=== PATIENT | female | born 1965 | race Caucasian/White ===

== ENCOUNTER 2020-01-29 18:35 | Observation (INO) | payer MEDICARE, MEDICAID, SELFPAY ==
[2020-01-29] VITALS (8 sets, daily range): BP systolic 83–131; BP diastolic 59–73; PULSE 91–107; RESP 14–20; TEMP 37.6–38.7; O2SAT 94–97; BMI 31.8
--- NOTE | ~2020-01-29 | CT_ITS ---
EXAMINATION: CT cervical spine wo con DATE: 01/29/2020 20:25 INDICATION: Confusion post falls TECHNIQUE: Computed tomography (CT) of the cervical spine was performed without intravenous contrast. Automated exposure control and iterative reconstruction technique were employed. The dose-length pro duct was 446.52 mGy-cm. COMPARISON: None FINDINGS: Mild cervical levocurvature. Straightening of the normal cervical lordosis. Vertebral body heights ar e normal. No fracture. Mild disc height loss at C5-C6 and C6-C7. There disc bulges at both levels res ulting in mild central canal stenosis. Moderate uncovertebral osteoarthritis on the right at C5-C6. M ultilevel mild to moderate facet osteoarthritis on both the left and right sides of the cervical spin e. There is mild neural foraminal stenosis at several levels on both the left and right most prominen t on the right at C5-C6. Atherosclerotic Calcination cases along the bilateral carotid bulbs. Cervica l soft tissues are otherwise unremarkable. Mild emphysema at the bilateral apices. IMPRESSION: 1. Mild cervical spondylosis. No acute osseous abnormality. Reviewed, dictated and finalized at location A.
--- NOTE | ~2020-01-29 | CT_ITS ---
EXAMINATION: CT brain wo con DATE: 01/29/2020 20:25 INDICATION: Altered mental status with confusion. Frequent falls. TECHNIQUE: Computed tomography (CT) of the head was performed without intravenous contrast. Sagittal and coronal reconstructions were performed. The mA was adjusted according to patient size. Iterative reconstruction technique was employed. The dose-length product was 681.00 mGy-cm. COMPARISON: None FINDINGS: No fracture. No acute intracranial hemorrhage, acute infarction or abnormal extra axial fluid collect ion. There is mild scattered white matter hypoattenuation consistent with chronic small vessel ischem ic disease. Ventricles are normal and symmetric. No mass/mass effect. The orbits, paranasal sinuses and mastoid air cells are normal. Intracranial calcified cerebral atherosclerosis is noted. IMPRESSION: 1. No fracture or acute intracranial process. 2. Mild scattered white matter hypoattenuation consistent with chronic small vessel ischemic disease. Reviewed, dictated and finalized at location A. IMPRESSION: 1. No fracture or acute intracranial process. 2. Mild scattered white matter hypoattenuation consistent with chronic small ve ssel ischemic disease.
--- NOTE | ~2020-01-29 | XR_ITS ---
EXAMINATION: XR chest 1V portable DATE: 01/29/2020 20:29 INDICATION: Cough and fever TECHNIQUE: frontal view of the chest was obtained. COMPARISON: None FINDINGS: The lungs are clear with no focal airspace opacities, pulmonary edema, pleural effusion or pneumothor ax. The cardiomediastinal silhouette is normal. Likely implantable proctologist projecting over th e mid left lung. IMPRESSION: 1. No acute cardiopulmonary disease. Reviewed, dictated and finalized at location A.
--- NOTE | 2020-01-29 18:53 | ECG_ITS ---
Measurements Intervals [place] Rate: 106 P: 70 CT: 144 QRS: -9 QRSD: 94 T: 76 QT: 338 QTc: 449 Interpretive Statements SINUS TACHYCARDIA POSSIBLE LEFT ATRIAL ENLARGEMENT BASELINE ARTIFACT- I, II III, AVL, AVF ABNORMAL ECG Electronically Signed On 01-30-2020 6:54:15 CDT by Mike Bernardo D.O.
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
[2020-01-29 19:40] LABS: Basophils Percent Auto 0.3 % (0.2-1.2); Eosinophils Percent Auto 0.1 % (0-4.4); Hematocrit 42.8 % (37.0-47.0); Hemoglobin 14.1 g/dL (12.0-15.0); Immature Granulocyte Absolute 0.05 K/mm3 (0.00-0.031); Immature Granulocyte Percent A 0.4 % (0-0.5); Lymphocytes Absolute Auto 1.06 K/mm3 (0.9-3.2); Mean Corpuscular HGB Conc 32.9 g/dl (32-36); Mean Corpuscular Hemoglobin 27.6 pg (26-34); Mean Corpuscular Volume 83.9 fl (80-100); Mean Platelet Volume 12.5 fl (7.4-10.4); Monocytes Absolute Auto 0.7 K/mm3 (0.1-0.6); Monocytes Percent Auto 5.4 % (2.6-8.5); Neutrophils Absolute Auto 11.4 K/mm3 (1.3-6.7); Neutrophils Percent Auto 85.8 % (45.5-73.1); Platelet Count Result 137 k/mm3 (150-375); Red Cell Distribution Width 14.1 % (11.5-14.5); White Blood Count 13.3 K/mm3 (4.5-10.0)
[2020-01-29 19:44] LABS: Add Urine Microscopic? YES; Appearance Urine Cloudy (Clear); Bilirubin Urine Negative (Negative); Blood Urine Negative (Negative); Color Urine Yellow (Yellow); Glucose Urine UA 3+ mg/dL (Negative); Ketones Urine Negative (Negative); Leukocyte Esterase Ur 2+ LEU/UL (Negative); Mucus Urine Rare /lpf; Nitrate Urine Negative (Negative); Protein Urine 2+ mg/dL (Negative); Specific Grav Ur 1.027 (1.001-1.035); Squamous Epithelial Cell Urine Few /hpf (Few); Urobilinogen Urine Negative mg/dL (<2.0); WBC Urine >75 /hpf
[2020-01-29 19:53] LABS: Lactic Acid Reflex 3.7 mmol/L (0.7-2.1)
[2020-01-29 19:54] LABS: Alveolar/Arterial O2 Gradient 50.7 mmHg; Base Excess ABG 1.8 mEq/l (+/-2.0); Fractional Inspired Oxygen 21 %; HCO3 ABG 24.4 mEq/l (22.0-26.0); Oxygen Content ABG 16.7 %vol (16.0-22.0); Oxygen Saturation ABG 93.4 % (95.0-100.0); Oxyhemoglobin 86.7 % THb (90.0-100.0); PCO2 ABG 32.1 mmHg (35.0-45.0); PO2 ABG 60.6 mmHg (80.0-100.0); PO2 FiO2 Ratio Arterial Blood 2.89 %; Total Hemoglobin 13.7 g/dL (12.0-18.0); pH ABG 7.498 (7.350-7.450)
[2020-01-29 19:54] LABS: Albumin Level 3.7 g/dL (3.5-5.1); Alkaline Phosphatase 108 U/L (38-126); Aspartate Amino Transferase 17 U/L (14-36); Bilirubin,Total 0.6 mg/dL (0.2-1.3); Blood Urea Nitrogen 15 mg/dL (7-17); Calcium 8.1 mg/dL (8.4-10.2); Carbon Dioxide 23 mmol/L (22-30); Chloride 96 mmol/L (98-107); Estimated CRCL calculation 69 ml/min; Estimated Glomerular Filt Rate 57; Glucose 362 mg/dL (65-105); Sodium 129 mmol/L (137-145)
[2020-01-29 19:56] LABS: Device ROOM AIR; Modified Allen's Test Pass; Site Drawn RIGHT RADIAL
[2020-01-29] MEDS: ACETAMINOPHEN 325 MG TABLET 650 MG PO (19:56)
[2020-01-29 20:06] LABS: Alanine Aminotransferase 19 U/L (4-35)
[2020-01-29] MEDS: POTASSIUM CHLORIDE 20 MEQ TABLET 40 MEQ PO (20:50)
--- NOTE | 2020-01-29 20:53 | PC.NURSE ---
Pt daughter, Heather. phone number [phone].
[2020-01-29 22:38] LABS: Reflex Lactic Acid Yes or No Add Lactic
--- NOTE | 2020-01-29 22:41 | ADMGEN ---
This patient, Tiff Vaughn, was admitted to [facility] Surg Room 331-01. Patient/family oriented to hospital policies and general routines including ID bracelet, bed and alarms, visiting hours, pain management, procedures, bathroom and other care routines, personal items, smoking policy, room service/diet, and visiting hours. Valuables list has been completed. Information on how to activate the Rapid Response Team has been discussed. Patient/Family are encouraged to report perceived risks to care and to ask questions if they do not understand what they are told or what they should do.
[2020-01-29] MEDS: SODIUM CHLORIDE 0.9% IV 1,000 ML 125 ML IV CONT (23:00)
[2020-01-29 23:59] LABS: Lactic Acid 0.8 mmol/L (0.7-2.1)
[2020-01-30] VITALS (10 sets, daily range): BP systolic 121–154; BP diastolic 69–91; PULSE 87–105; RESP 14–22; TEMP 36.5–37.3; O2SAT 94–98
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
[2020-01-30] MEDS: SODIUM CHLORIDE 0.9% IV 1,000 ML 125 ML IV CONT (05:39)
[2020-01-30 06:48] LABS: Basophils Percent Auto 0.4 % (0.2-1.2); Eosinophils Percent Auto 0.3 % (0-4.4); Hematocrit 41.2 % (37.0-47.0); Hemoglobin 13.5 g/dL (12.0-15.0); Immature Granulocyte Absolute 0.04 K/mm3 (0.00-0.031); Immature Granulocyte Percent A 0.4 % (0-0.5); Lymphocytes Absolute Auto 1.32 K/mm3 (0.9-3.2); Lymphocytes Percent Auto 12.8 % (18.3-44.2); Mean Corpuscular HGB Conc 32.8 g/dl (32-36); Mean Corpuscular Hemoglobin 27.6 pg (26-34); Mean Corpuscular Volume 84.1 fl (80-100); Mean Platelet Volume 12.3 fl (7.4-10.4); Monocytes Absolute Auto 0.7 K/mm3 (0.1-0.6); Monocytes Percent Auto 6.7 % (2.6-8.5); Neutrophils Absolute Auto 8.2 K/mm3 (1.3-6.7); Neutrophils Percent Auto 79.4 % (45.5-73.1); Platelet Count Result 125 k/mm3 (150-375); White Blood Count 10.3 K/mm3 (4.5-10.0)
[2020-01-30 07:00] LABS: Blood Urea Nitrogen 10 mg/dL (7-17); Calcium 7.9 mg/dL (8.4-10.2); Carbon Dioxide 27 mmol/L (22-30); Chloride 103 mmol/L (98-107); Estimated CRCL calculation 90 ml/min; Estimated Glomerular Filt Rate > 60; Glucose 255 mg/dL (65-105); Potassium 3.1 mmol/L (3.4-5.0); Sodium 134 mmol/L (137-145)
[2020-01-30 07:28] LABS: Glucose Point of Care 250 (65-105)
[2020-01-30] MEDS: ALBUTEROL SULFATE (*SP) AEROSOL 1 PUFF 6 PUFF INHALATION ×2 (08:48→12:13)
[2020-01-30] MEDS: PREGABALIN 75 MG CAPSULE PO ×2 (10:38→21:50)
[2020-01-30] MEDS: INSULIN ASPART (*BKC) 100 UNITS/ML SUB-Q ×3 (10:38→18:36)
[2020-01-30] MEDS: ENOXAPARIN 40 MG/0.4 ML SYRINGE SUB-Q (10:38)
[2020-01-30] MEDS: CHOLECALCIFEROL 1,000 UNIT TABLET 2000 UNITS PO ×2 (12:43→17:08)
[2020-01-30] MEDS: LOSARTAN POTASSIUM 25 MG TABLET PO (12:44)
[2020-01-30] MEDS: ASPIRIN 81 MG CHEWABLE TABLET PO (12:44)
[2020-01-30] MEDS: DULOXETINE 60 MG CAPSULE.DR PO ×2 (12:44→17:08)
[2020-01-30] MEDS: SODIUM CHLORIDE 0.9% IV 1,000 ML 75 ML IV CONT (12:46)
[2020-01-30 14:02] LABS: SARS-CoV-2 RNA PCR Negative
--- NOTE | 2020-01-30 14:14 | PC.NURSE ---
Notified Ck WANG that patients COVID test came back negative.
[2020-01-30] MEDS: INSULIN GLARGINE (*BKC) 100 UNITS/ML 50 UNITS SUB-Q (14:16)
--- NOTE | 2020-01-30 15:24 | P.PNIM_ITS ---
Progress Note: A&P Assessment and Plan (1) Sepsis: Qualifiers: Sepsis type: sepsis due to unspecified organism Sepsis acute organ dysfunction status: with acute organ dysfunction Severe sepsis acute organ dysfunction type: encephalopathy Severe sepsis shock status: without septic reza ck Qualified Code(s): A41.9 - Sepsis, unspecified organism; R65.20 - Severe sepsis without septic shock; G93.40 - Encephalopathy, unspecified Code(s): A41.9 - Sepsis, unspecified organism Status: Acute Assessment and Plan: With leukocytosis, fever, tachycardia, hypotension on arrival; Most likely due to UTI given UA. * Continue empiric antibiotic therapy with Rocephin. * Await urine and blood cultures; tailor regimen to cultures * Continue IV fluid hydration for now; likely d/c tomorrow (2) UTI (urinary tract infection): Qualifiers: Urinary tract infection type: site unspecified Hematuria presence: without hematuria Qualified Code(s): N39.0 - Urinary tract infection, site not specified Code(s): N39.0 - Urinary tract infection, site not specified Status: Acute Assessment and Plan: Sepsis due to likely urinary tract infection given patient's dysuria and encephalopathy. * Continue empiric antibiotic therapy with Rocephin. * Await urine and blood cultures. (3) Tobacco abuse disorder: Code(s): Z72.0 - Tobacco use Status: Acute Assessment and Plan: * Patient has been educated as to the importance of tobacco cessation. 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 BGL in 200s * Will hole the patient's home Jardiance and * Continue with home Januvia. * Home insulin (humulin 50 u BID) is NF; will do long acting insulin 50 units daily during hospital stay; adjust appropriately * Accuchecks ACHS, hypoglycemia protocol, correctional insulin, diabetic diet * Monitor (5) Hypokalemia: Code(s): E87.6 - Hypokalemia Status: Acute Assessment and Plan: Patient received 40 mEq potassium chloride supplement in the ER. K 3.1 this morning and replaced again this morning * BMP tomorrow * Replace as needed (6) Metabolic encephalopathy: Code(s): G93.41 - Metabolic encephalopathy Status: Acute Assessment and Plan: Likely due to UTI. Patient A&O x 4 today. Seems to have resolvecd * Will treat empirically with Rocephin. (7) COPD exacerbation: Code(s): J44.1 - Chronic obstructive pulmonary disease with (acute) exacerbation Status: Acute Assessment and Plan: Likely exacerbated by the patient's continued tobacco use. No wheezing on exam today * Will continue Spiriva scheduled and albuterol inhalers QID * Covid testing negative Subjective Date/time seen: 01/30/20 15:24 Interval history: Patient is a 54 yo F with history of type 2 diabetes, COPD, and current tobacco use who is here for treatment of sepsis/UTI. Patient states she is fe
--- NOTE | 2020-01-30 15:24 | PM.IMPN ---
Progress Note: A&P Assessment and Plan (1) Sepsis: Qualifiers: Sepsis type: sepsis due to unspecified organism Sepsis acute organ dysfunction status: with acute organ dysfunction Severe sepsis acute organ dysfunction type: encephalopathy Severe sepsis shock status: without septic shock Qualified Code(s): A41.9 - Sepsis, unspecified organism; R65.20 - Severe sepsis without septic shock; G93.40 - Encephalopathy, unspecified Code(s): A41.9 - Sepsis, unspecified organism Status: Acute Assessment and Plan: With leukocytosis, fever, tachycardia, hypotension on arrival; Most likely due to UTI given UA. Continue empiric antibiotic therapy with Rocephin. Await urine and blood cultures; tailor regimen to cultures Continue IV fluid hydration for now; likely d/c tomorrow (2) UTI (urinary tract infection): Qualifiers: Urinary tract infection type: site unspecified Hematuria presence: without hematuria Qualified Code(s): N39.0 - Urinary tract infection, site not specified Code(s): N39.0 - Urinary tract infection, site not specified Status: Acute Assessment and Plan: Sepsis due to likely urinary tract infection given patient's dysuria and encephalopathy. Continue empiric antibiotic therapy with Rocephin. Await urine and blood cultures. (3) Tobacco abuse disorder: Code(s): Z72.0 - Tobacco use Status: Acute Assessment and Plan: Patient has been educated as to the importance of tobacco cessation. 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 BGL in 200s Will hole the patient's home Jardiance and Continue with home Januvia. Home insulin (humulin 50 u BID) is NF; will do long acting insulin 50 units daily during hospital stay; adjust appropriately Accuchecks ACHS, hypoglycemia protocol, correctional insulin, diabetic diet Monitor (5) Hypokalemia: Code(s): E87.6 - Hypokalemia Status: Acute Assessment and Plan: Patient received 40 mEq potassium chloride supplement in the ER. K 3.1 this morning and replaced again this morning BMP tomorrow Replace as needed (6) Metabolic encephalopathy: Code(s): G93.41 - Metabolic encephalopathy Status: Acute Assessment and Plan: Likely due to UTI. Patient A&O x 4 today. Seems to have resolvecd Will treat empirically with Rocephin. (7) COPD exacerbation: Code(s): J44.1 - Chronic obstructive pulmonary disease with (acute) exacerbation Status: Acute Assessment and Plan: Likely exacerbated by the patient's continued tobacco use. No wheezing on exam today Will continue Spiriva scheduled and albuterol inhalers QID Covid testing negative Subjective Date/time seen: 01/30/20 15:24 Interval history: Patient is a 54 yo F with history of type 2 diabetes, COPD, and current tobacco use who is here for treatment of sepsis/UTI. Patient states she is feeling much better today. She notes she was treated for a UTI by her PCP as an outpatient 2 weeks ago, finishing her antibiotic treatment course 1 week ago; she is unaware of the antibiotic used. She has no complaints for me at the moment. She is wishing to leave as soon as possible. Denies f/c/s, headaches, dizziness, lightheadedness, cp/palpitations, sob/cough, n/v/d/c, abd p
[2020-01-30] MEDS: ALBUTEROL SULFATE (*SP) AEROSOL 1 PUFF 2 PUFF INHALATION ×2 (17:10→20:43)
[2020-01-30 17:32] LABS: Glucose Point of Care 259 (65-105)
[2020-01-30 19:09] LABS: Glucose Point of Care 233 (65-105)
[2020-01-31 06:00] VITALS: BP 158/55; PULSE 88; RESP 18; TEMP 36.9; O2SAT 100
[2020-01-31 07:12] LABS: Basophils Percent Auto 0.4 % (0.2-1.2); Eosinophils Absolute Auto 0.1 K/mm3 (0-0.3); Hematocrit 39.8 % (37.0-47.0); Hemoglobin 13.1 g/dL (12.0-15.0); Immature Granulocyte Absolute 0.04 K/mm3 (0.00-0.031); Immature Granulocyte Percent A 0.4 % (0-0.5); Immature Platelet Fraction Pct 8.1 % (0.9-11.2); Lymphocytes Absolute Auto 1.38 K/mm3 (0.9-3.2); Mean Corpuscular HGB Conc 32.9 g/dl (32-36); Mean Corpuscular Hemoglobin 27.5 pg (26-34); Mean Corpuscular Volume 83.6 fl (80-100); Mean Platelet Volume 12.1 fl (7.4-10.4); Monocytes Absolute Auto 0.6 K/mm3 (0.1-0.6); Monocytes Percent Auto 6.4 % (2.6-8.5); Neutrophils Absolute Auto 7.7 K/mm3 (1.3-6.7); Neutrophils Percent Auto 77.8 % (45.5-73.1); Platelet Count Result 126 k/mm3 (150-375); Red Blood Count 4.76 M/mm3 (4.2-5.4); Red Cell Distribution Width 13.6 % (11.5-14.5); White Blood Count 9.9 K/mm3 (4.5-10.0)
[2020-01-31 07:30] LABS: Blood Urea Nitrogen 4 mg/dL (7-17); Calcium 8.1 mg/dL (8.4-10.2); Carbon Dioxide 28 mmol/L (22-30); Chloride 103 mmol/L (98-107); Estimated CRCL calculation 122 ml/min; Estimated Glomerular Filt Rate > 60; Glucose 125 mg/dL (65-105); Magnesium 1.6 mg/dL (1.6-2.3); Potassium 2.9 mmol/L (3.4-5.0); Sodium 135 mmol/L (137-145)
[2020-01-31] MEDS: ALBUTEROL SULFATE (*SP) AEROSOL 1 PUFF 2 PUFF INHALATION ×3 (09:03→17:17)
[2020-01-31 09:13] LABS: Glucose Point of Care 112 (65-105)
[2020-01-31] MEDS: LOSARTAN POTASSIUM 25 MG TABLET PO (09:35)
[2020-01-31] MEDS: ENOXAPARIN 40 MG/0.4 ML SYRINGE SUB-Q (09:35)
[2020-01-31] MEDS: CHOLECALCIFEROL 1,000 UNIT TABLET 2000 UNITS PO (09:35)
[2020-01-31] MEDS: ASPIRIN 81 MG CHEWABLE TABLET PO (09:35)
[2020-01-31] MEDS: DULOXETINE 60 MG CAPSULE.DR PO (09:35)
[2020-01-31] MEDS: PREGABALIN 75 MG CAPSULE PO (09:46)
[2020-01-31] MEDS: INSULIN GLARGINE (*BKC) 100 UNITS/ML 50 UNITS SUB-Q (09:46)
[2020-01-31 10:00] VITALS: BP 133/51; PULSE 88; RESP 16; TEMP 37.3; O2SAT 98
--- NOTE | 2020-01-31 10:01 | PM.DS ---
DS: Admitting Diagnosis Admitting Diagnosis Admitting Diagnosis: Sepsis, unspecified organism DS: Discharge Diagnosis Discharge Diagnosis (1) Sepsis: Qualifiers: Sepsis acute organ dysfunction status: with acute organ dysfunction Sepsis type: sepsis due to unspecified organism Severe sepsis acute organ dysfunction type: encephalopathy Severe sepsis shock status: without septic shock Qualified Code(s): A41.9 - Sepsis, unspecified organism; R65.20 - Severe sepsis without septic shock; G93.40 - Encephalopathy, unspecified Code(s): A41.9 - Sepsis, unspecified organism Status: Acute Assessment and Plan: With leukocytosis, fever, tachycardia, hypotension on arrival; Most likely due to UTI given UA and positive UCx growing E. coli sensitive to ceftriaxone. BCx negative to date x 2. Leukocytosis improved, WNL today. Tachycardia and hypotension resolved. Switch to cefdinir today. Complete 7 day total course of antibiotics (through 02/03) F/u with PCP after discharge (2) UTI (urinary tract infection): Qualifiers: Hematuria presence: without hematuria Urinary tract infection type: site unspecified Qualified Code(s): N39.0 - Urinary tract infection, site not specified Code(s): N39.0 - Urinary tract infection, site not specified Status: Acute Assessment and Plan: Sepsis due to likely urinary tract infection given patient's dysuria and encephalopathy. As above, UCx growing E. Coli sensitive to ceftriaxone Start cefdinir 300 mg Q12 today. Continue through 02/03 to complete 7 total days of antibiotics F/u with PCP. (3) Tobacco abuse disorder: Code(s): Z72.0 - Tobacco use Status: Acute Assessment and Plan: Patient has been educated as to the importance of tobacco cessation. Nicotine patch as needed (4) Diabetes mellitus with hyperglycemia: Qualifiers: Diabetes mellitus [facility] insulin use: with long term acute care registered nurse use Diabetes mellitus type: type 2 Qualified Code(s): E11.65 - Type 2 diabetes mellitus with hyperglycemia; Z79.4 - care home (current) use of insulin Code(s): E11.65 - Type 2 diabetes mellitus with hyperglycemia Status: Acute Assessment and Plan: A1c 9.0. BGL in 100s today Will have patient continue home regimen. Instruct her to check BGL 4-5 times daily and f/u with PCP for possible adjustments in medication Instructed her to adjust home insulin if BGL on lower side this evening Monitor (5) Hypokalemia: Code(s): E87.6 - Hypokalemia Status: Acute Assessment and Plan: K 3.0 today, stable. Possibly due to poor PO intake prior to arrival. Replaced this morning Will instruct to take her PRN potassium for 3 days and recheck BMP on 02/01 F/u with PCP (6) Metabolic encephalopathy: Code(s): G93.41 - Metabolic encephalopathy Status: Acute Assessment and Plan: Likely due to UTI. Patient A&O x 4 today. Seems to have resolved Treat UTI as outlined above (7) COPD exacerbation: Code(s): J44.1 - Chronic obstructive pulmonary disease with (acute) exacerbation Status: Acute Assessment and Plan: Likely exacerbated by the patient's continued tobacco use. Rhonchi noted on exam today, although patient not complaining of SOB/cough Continue home medication regimen F/u with PCP Covid testing negative DS: Summary Hospital Course Reason for hospitalization: Sepsis/UTI with encephalopathy, hypokalemia Hospital Course: Patient is a 54 yo F with history of type 2 diabetes and COPD who presented to the ER on 01/28 via private vehicle due to confusion and multiple falls for 1 day. While in the ED, patient was found to be
[2020-01-31] MEDS: POTASSIUM CHLORIDE 20 MEQ PACKET (FOR LIQUID) 60 MEQ PO (10:31)
[2020-01-31] MEDS: CEFDINIR 300 MG CAPSULE PO (11:40)
[2020-01-31] MEDS: POTASSIUM CHLORIDE 20 MEQ TABLET 60 MEQ PO (12:00)
[2020-01-31 12:45] LABS: Glucose Point of Care 108 (65-105)
[2020-01-31 13:44] LABS: Blood Urea Nitrogen 5 mg/dL (7-17); Calcium 8.1 mg/dL (8.4-10.2); Carbon Dioxide 26 mmol/L (22-30); Chloride 101 mmol/L (98-107); Estimated CRCL calculation 122 ml/min; Estimated Glomerular Filt Rate > 60; Glucose 106 mg/dL (65-105); Sodium 135 mmol/L (137-145)
[2020-01-31 14:00] VITALS: BP 147/68; PULSE 89; RESP 16; TEMP 36.9; O2SAT 100
== END 2020-01-31 15:30 | disposition home or self-care (01) ==
LOC: ANHED 21:39 → ANH3MEDSUR 22:15
PROVIDERS: Admitting Provider Internal Medicine; Emergency Provider Emergency Medicine; PCP Emergency Medicine; Visit Provider Physician Assistant
DX: A41.9 Sepsis, unspecified organism (principal); R65.20 Severe sepsis without septic shock; Z20.828 Contact with and (suspected) exposure to other viral communicable diseases; G93.41 Metabolic encephalopathy; N39.0 Urinary tract infection, site not specified; J44.1 Chronic obstructive pulmonary disease with (acute) exacerbation; B96.20 Unspecified Escherichia coli [E. coli] as the cause of diseases classified elsewhere; E11.610 Type 2 diabetes mellitus with diabetic neuropathic arthropathy; E11.42 Type 2 diabetes mellitus with diabetic polyneuropathy; E11.51 Type 2 diabetes mellitus with diabetic peripheral angiopathy without gangrene; E11.65 Type 2 diabetes mellitus with hyperglycemia; E87.6 Hypokalemia; F17.210 Nicotine dependence, cigarettes, uncomplicated; I25.10 Atherosclerotic heart disease of native coronary artery without angina pectoris; R29.6 Repeated falls; Z79.4 Long term (current) use of insulin; Z95.5 Presence of coronary angioplasty implant and graft
CPT/HCPCS: 36415; 36600; 70450; 71045; 72125; 80048; 80053; 81001; 82805; 83036; 83605; 83735; 85025; 85055; 87040; 87077; 87086; 87088; 87186; 87635; 93005; 94640; 96361; 96365; 96372; 96375; 96376; 99285; A9270; C9803; G0378; J0696; J1650; J1815; J3480; J7030; J7120; U0003

== ENCOUNTER 2020-03-16 22:34 | Observation (INO) | payer MEDICARE, MEDICAID, SELFPAY ==
--- NOTE | ~2020-03-16 | CT_ITS ---
EXAMINATION: CT abdomen pelvis w con EXAM DATE: 03/17/2020 00:16 INDICATION: Pain, fever, burning when urinating, dysuria. Since 5 days. TECHNIQUE: Spiral CT of the abdomen and pelvis was performed following intravenous injection of 100 m L Omnipaque 350. Axial, coronal and sagittal images were reviewed. The dose-length product (DLP) fo r this examination was 766.73 mGy-cm. The exposure was tailored according to patient size (auto mA e xposure control), and iterative reconstruction (ASIR) was used as additional dose reduction technique . There is no prior study for comparison. FINDINGS: The liver, spleen, adrenal glands and pancreas are unremarkable. Gallbladder not identifie d, patient likely has had cholecystectomy. Left kidney enhancing heterogeneously, and inflammation a long the left renal pelvis and surrounding the kidney, appearance is consistent with pyelonephritis. Correlate with urinalysis. Right kidney unremarkable. No hydronephrosis. The uterus is not identifie d and has likely been surgically resected. The bladder is unremarkable. There is no retroperitoneal or pelvic lymphadenopathy. There is mild to moderate scattered arteriosclerotic disease. There is left common iliac venous stent, bilateral external iliac arterial stents. The appendix is not positively visualized. There is no pericecal inflammatory change to suggest appe ndicitis. The stomach and small bowel are unremarkable. There is expected amount of colonic stool. No free intraperitoneal gas. The heart is normal in size. There are no pericardial or pleural e ffusions. The lung bases are unremarkable. There are no osteoblastic or osteolytic lesions identifi ed. IMPRESSION: Acute left-sided pyelonephritis. Reviewed, dictated and finalized at location A.
[2020-03-16 22:36] VITALS: BP 123/56; PULSE 103; RESP 20; TEMP 36.6; O2SAT 96
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
[2020-03-16 22:58] LABS: Add Urine Microscopic? YES; Appearance Urine Clear (Clear); Bacteria Urine Trace /hpf; Bilirubin Urine Negative (Negative); Blood Urine 1+ (Negative); Color Urine Colorless (Yellow); Glucose Urine UA 3+ mg/dL (Negative); Ketones Urine Negative (Negative); Leukocyte Esterase Ur Negative LEU/UL (Negative); Nitrate Urine Negative (Negative); Protein Urine Negative (Negative); RBC Urine 0-2 /hpf (0-2); Specific Grav Ur 1.028 (1.001-1.035); Squamous Epithelial Cell Urine Rare /hpf (Few); Urobilinogen Urine Negative mg/dL (<2.0)
[2020-03-16 23:28] VITALS: BP 120/79; PULSE 99; RESP 16; O2SAT 99
[2020-03-16] MEDS: ONDANSETRON INJ 4 MG/2 ML VIAL IV PUSH (23:32)
[2020-03-16] MEDS: SODIUM CHLORIDE 0.9% IV 1,000 ML 999 ML IV CONT (23:33)
[2020-03-16 23:35] LABS: Basophils Absolute Auto 0.1 K/mm3 (0.0-0.1); Basophils Percent Auto 0.4 % (0.2-1.2); Eosinophils Absolute Auto 0.1 K/mm3 (0-0.3); Eosinophils Percent Auto 0.5 % (0-4.4); Hematocrit 39.1 % (37.0-47.0); Hemoglobin 13.2 g/dL (12.0-15.0); Immature Granulocyte Absolute 0.03 K/mm3 (0.00-0.031); Immature Granulocyte Percent A 0.3 % (0-0.5); Lymphocytes Absolute Auto 1.75 K/mm3 (0.9-3.2); Lymphocytes Percent Auto 14.7 % (18.3-44.2); Mean Corpuscular HGB Conc 33.8 g/dl (32-36); Mean Corpuscular Hemoglobin 27.4 pg (26-34); Mean Corpuscular Volume 81.3 fl (80-100); Mean Platelet Volume 11.9 fl (7.4-10.4); Monocytes Absolute Auto 0.5 K/mm3 (0.1-0.6); Monocytes Percent Auto 4.4 % (2.6-8.5); Neutrophils Absolute Auto 9.5 K/mm3 (1.3-6.7); Neutrophils Percent Auto 79.7 % (45.5-73.1); Platelet Count Result 196 k/mm3 (150-375); Red Blood Count 4.81 M/mm3 (4.2-5.4); Red Cell Distribution Width 13.2 % (11.5-14.5); White Blood Count 11.9 K/mm3 (4.5-10.0)
[2020-03-16 23:47] LABS: Lactic Acid Reflex 1.2 mmol/L (0.7-2.1)
[2020-03-16 23:50] LABS: Alanine Aminotransferase 10 U/L (4-35); Albumin Level 3.6 g/dL (3.5-5.1); Alkaline Phosphatase 146 U/L (38-126); Anion Gap 12.5 mmol/L (7-16); Aspartate Amino Transferase 12 U/L (14-36); Bilirubin,Total 0.5 mg/dL (0.2-1.3); Blood Urea Nitrogen 9 mg/dL (7-17); Calcium 8.6 mg/dL (8.4-10.2); Carbon Dioxide 28 mmol/L (22-30); Chloride 93 mmol/L (98-107); Estimated Glomerular Filt Rate > 60; Glucose 573 mg/dL (65-105); Potassium 3.5 mmol/L (3.4-5.0); Sodium 130 mmol/L (137-145)
[2020-03-17] VITALS (8 sets, daily range): BP systolic 91–154; BP diastolic 45–75; PULSE 74–100; RESP 16–20; TEMP 36.2–36.8; O2SAT 93–100; BMI 27.2
[2020-03-17 00:20] LABS: Glucose Point of Care 456 (65-105)
[2020-03-17] MEDS: SODIUM CHLORIDE 0.9% IV 1,000 ML 999 ML IV CONT (00:38)
[2020-03-17] MEDS: INSULIN ASPART (*BKC) 100 UNITS/ML 8 UNITS SUB-Q (01:06)
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
--- NOTE | 2020-03-17 01:46 | ADMGEN ---
This patient, Tiff Vaughn, was admitted to Medical Room 340-01. Patient/family oriented to hospital policies and general routines including ID bracelet, bed and alarms, visiting hours, pain management, procedures, bathroom and other care routines, personal items, smoking policy, room service/diet, and visiting hours. Valuables list has been completed. Information on how to activate the Rapid Response Team has been discussed. Patient/Family are encouraged to report perceived risks to care and to ask questions if they do not understand what they are told or what they should do.
[2020-03-17] MEDS: SODIUM CHLORIDE 0.9% IV 1,000 ML 125 ML IV CONT (02:42)
[2020-03-17 03:03] LABS: Glucose Point of Care 275 (65-105)
[2020-03-17 03:03] LABS: Glucose Point of Care 342 (65-105)
[2020-03-17] MEDS: NICOTINE (*PBKC) 21 MG PATCH 1 PATCH TRANSDERM ×2 (04:12→09:02)
[2020-03-17 06:45] LABS: Glucose Point of Care 244 (65-105)
[2020-03-17] MEDS: INSULIN ASPART (*BKC) 100 UNITS/ML SUB-Q ×4 (07:25→16:36)
[2020-03-17] MEDS: ASPIRIN 81 MG CHEWABLE TABLET PO (09:01)
[2020-03-17] MEDS: DULoxetine HCL 60 MG CAPSULE.DR PO ×2 (09:01→16:28)
[2020-03-17] MEDS: PREGABALIN 75 MG CAPSULE 150 MG PO ×4 (09:01→20:27)
[2020-03-17] MEDS: CHOLECALCIFEROL 1,000 UNIT TABLET 2000 UNITS PO (09:01)
[2020-03-17] MEDS: LOSARTAN POTASSIUM 25 MG TABLET PO (09:01)
[2020-03-17] MEDS: INSULIN GLARGINE (*BKC) 100 UNITS/ML 15 UNITS SUB-Q ×2 (09:43→16:35)
[2020-03-17] MEDS: SODIUM CHLORIDE 0.9% IV 1,000 ML 100 ML IV CONT ×2 (11:11→23:09)
[2020-03-17 12:17] LABS: Glucose Point of Care 212 (65-105)
[2020-03-17] MEDS: ACETAMINOPHEN 500 MG TABLET 1000 MG PO (14:18)
--- NOTE | 2020-03-17 15:25 | PM.IMPN ---
Progress Note: A&P Assessment and Plan (1) Acute pyelonephritis: Code(s): N10 - Acute pyelonephritis Status: Acute Assessment and Plan: Patient presents with dysuria x5 days and nausea/vomiting. CT abdomen shows findings consistent with acute left-sided pyelonephritis. Continue IV ceftriaxone while awaiting urine and blood cultures. Supportive care with pain control, antiemetics, and IV hydration. (2) Nausea & vomiting: Qualifiers: Vomiting Intractability: non-intractable Vomiting type: unspecified Qualified Code(s): R11.2 - Nausea with vomiting, unspecified Code(s): R11.2 - Nausea with vomiting, unspecified Status: Acute Assessment and Plan: Improved today. Suspect secondary to above. Continue supportive care. (3) Diabetes mellitus with hyperglycemia: Qualifiers: Diabetes mellitus [facility]p insulin use: with m[facility]p use Diabetes mellitus type: type 2 Qualified Code(s): E11.65 - Type 2 diabetes mellitus with hyperglycemia; Z79.4 - terminal superintendent (current) use of insulin Code(s): E11.65 - Type 2 diabetes mellitus with hyperglycemia Status: Acute Assessment and Plan: With large doses of Regular insulin as home regimen. Will start Lantus BID and add more insulin as needed. Continue to monitor with Accu-cheks, cover with sliding scale and adjust treatment as needed. BG 573 on arrival. She reports she hasnt been eating or drinking well but drank gatorade prior to arrival and didn't realize the sugar content. BGs are improved today. (4) COPD (chronic obstructive pulmonary disease): Qualifiers: COPD type: unspecified COPD Qualified Code(s): J44.9 - Chronic obstructive pulmonary disease, unspecified Code(s): J44.9 - Chronic obstructive pulmonary disease, unspecified Status: Chronic Assessment and Plan: Continue bronchodilators. No acute respiratory symptoms. Subjective Date/time seen: 03/17/20 1130 Interval history: Ms. Vaughn is a 54 yo F admitted for acute pyelonephritis. She is feeling a bit better than when she came in but is feeling tired. She was having nausea and vomiting prior to arrival but she notes this has improved. She endorses left flank pain and dysuria. She denies chest pain or shortness of breath. Review of Systems Review of Systems: Narrative: Twelve systems were reviewed with pertinent positives and negatives as per HPI. Exam Narrative: Exam Narrative: General: Patient resting comfortably supine in bed in no acute distress. HEENT: Normocephalic, EOMI, oral mucosa moist. Cardiovascular: Rate and rhythm are regular. Respiratory: Lungs clear to auscultation all mistry. Non-labored breathing. Abdomen: Soft, left sided abdominal/flank tenderness to palpation, non-distended, bowel sounds present. Extremities: Peripheral pulses intact. No edema. Neuro: No focal neurological deficits. Speech is clear. Objective Data Vital Signs Vital Signs: Last Vital Signs Temp 98.2 F 03/17/20 14:00 Pulse 87 03/17/20 14:00 Resp 18 03/17/20 14:00 BP 132/55 L 03/17/20 14:00 Pulse Ox 100 03/17/20 14:00 Intake/Output Intake/Output: Intake & Output 03/14/20 03/15/20 03/16/20 03/17/20 23:59 23:59 23:59 23:59 Intake Total 1360 Output Total 300 Balance 1060 Meds/Results Medications: Active Medications Generic Name Dose Route Start Last Admin Trade Name Freq PRN Reason Stop Dose Admin Acetaminophen 1,000 mg 03/17/20 15:25 Tylenol Tablet PO Q6H PRN Pain Rated 5 or Less Hydrocodone Bitart/Acetaminophen 1 tab 03/17/20 15:25 Elrama 5-325 Mg PO Q6H PRN Pain Rated 6 or Greater Albuterol 2 puff 03/17/20 04:52 Proventil Hfa INHALATION QIDRT PRN Shortness Of Breath Aspirin 81 mg 03/17/20 09:00 03/17/20 09:01
[2020-03-17] MEDS: DOCUSATE SODIUM 100 MG CAPSULE PO (16:28)
[2020-03-17 16:54] LABS: Glucose Point of Care 236 (65-105)
[2020-03-17] MEDS: KETOROLAC 30 MG/ML VIAL (*BKC) IV PUSH (20:27)
[2020-03-17] MEDS: CYCLOBENZAPRINE HCL 10 MG TABLET PO (20:27)
[2020-03-17 21:55] LABS: Glucose Point of Care 368 (65-105)
[2020-03-17 21:57] LABS: Glucose Point of Care 360 (65-105)
[2020-03-17] MEDS: INSULIN ASPART (*BKC) 100 UNITS/ML 6 UNITS SUB-Q (23:08)
[2020-03-18 05:40] VITALS: BP 140/57; PULSE 72; RESP 18; TEMP 36.6; O2SAT 99
[2020-03-18 06:03] LABS: Blood Urea Nitrogen 9 mg/dL (7-17); Calcium 7.7 mg/dL (8.4-10.2); Carbon Dioxide 26 mmol/L (22-30); Chloride 108 mmol/L (98-107); Estimated CRCL calculation 90 ml/min; Estimated Glomerular Filt Rate > 60; Glucose 231 mg/dL (65-105); Magnesium 1.8 mg/dL (1.6-2.3); Sodium 138 mmol/L (137-145)
[2020-03-18 06:04] LABS: Basophils Absolute Auto 0.1 K/mm3 (0.0-0.1); Basophils Percent Auto 0.8 % (0.2-1.2); Eosinophils Absolute Auto 0.2 K/mm3 (0-0.3); Eosinophils Percent Auto 2.7 % (0-4.4); Hematocrit 36.6 % (37.0-47.0); Hemoglobin 11.8 g/dL (12.0-15.0); Immature Granulocyte Absolute 0.02 K/mm3 (0.00-0.031); Immature Granulocyte Percent A 0.3 % (0-0.5); Lymphocytes Percent Auto 33.7 % (18.3-44.2); Mean Corpuscular HGB Conc 32.2 g/dl (32-36); Mean Corpuscular Hemoglobin 27.3 pg (26-34); Mean Corpuscular Volume 84.7 fl (80-100); Mean Platelet Volume 12.2 fl (7.4-10.4); Monocytes Absolute Auto 0.4 K/mm3 (0.1-0.6); Monocytes Percent Auto 5.4 % (2.6-8.5); Neutrophils Absolute Auto 4.4 K/mm3 (1.3-6.7); Neutrophils Percent Auto 57.1 % (45.5-73.1); Platelet Count Result 181 k/mm3 (150-375); Red Blood Count 4.32 M/mm3 (4.2-5.4); Red Cell Distribution Width 13.4 % (11.5-14.5); White Blood Count 7.7 K/mm3 (4.5-10.0)
[2020-03-18 07:56] LABS: Glucose Point of Care 150 (65-105)
[2020-03-18] MEDS: PREGABALIN 75 MG CAPSULE 150 MG PO ×4 (08:29→20:47)
[2020-03-18] MEDS: NICOTINE (*PBKC) 21 MG PATCH 1 PATCH TRANSDERM (08:29)
[2020-03-18] MEDS: MAGNESIUM OXIDE 400 MG TABLET PO (08:32)
[2020-03-18] MEDS: ASPIRIN 81 MG CHEWABLE TABLET PO (08:32)
[2020-03-18] MEDS: CHOLECALCIFEROL 1,000 UNIT TABLET 2000 UNITS PO (08:32)
[2020-03-18 08:33] VITALS: RESP 18; O2SAT 99
[2020-03-18] MEDS: DULoxetine HCL 60 MG CAPSULE.DR PO ×2 (08:33→17:09)
[2020-03-18] MEDS: LOSARTAN POTASSIUM 25 MG TABLET PO (08:33)
[2020-03-18] MEDS: INSULIN GLARGINE (*BKC) 100 UNITS/ML 25 UNITS SUB-Q ×2 (08:42→17:11)
[2020-03-18] MEDS: SODIUM CHLORIDE 0.9% IV 1,000 ML 100 ML IV CONT (09:30)
[2020-03-18] MEDS: POTASSIUM CHLORIDE 20 MEQ PACKET (FOR LIQUID) 40 MEQ PO (09:35)
[2020-03-18 11:48] LABS: Glucose Point of Care 247 (65-105)
[2020-03-18] MEDS: INSULIN ASPART (*BKC) 100 UNITS/ML SUB-Q ×2 (12:11→17:12)
[2020-03-18 14:00] VITALS: BP 133/61; PULSE 81; RESP 18; TEMP 36.2; O2SAT 96
--- NOTE | 2020-03-18 15:25 | PM.DS ---
DS: Admitting Diagnosis Admitting Diagnosis Admitting Diagnosis: Acute pyelonephritis DS: Summary Time Spent with Patient Time attestation: Total time spent providing and/or coordinating discharge services: DS: Data Data Completed and Pending Labs on day of discharge: Labs from last 24 hours 03/18/20 03/18/20 03/18/20 11:33 07:43 05:12 WBC RBC Hgb Hct MCV MCH MCHC RDW Plt Count MPV Immature Gran % (Auto) Neut % (Auto) Lymph % (Auto) [place] % (Auto) Eos % (Auto) Baso % (Auto) Lymph # (Auto) [place] # (Auto) Eos # (Auto) Baso # (Auto) Abs Immat Gran (auto) Absolute Neuts (auto) Absolute Nucleated RBC Nucleated RBC % Sodium 138 Potassium 3.0 L Chloride 108 H Carbon Dioxide 26 Anion Gap 7.0 BUN 9 Creatinine 0.60 L Estim Creat Clear Calc 90 Estimated GFR > 60 Glucose 231 H POC Capillary Glucose 247 H 150 H Calcium 7.7 L Magnesium 1.8 03/18/20 03/17/20 03/17/20 05:12 21:55 20:33 WBC 7.7 RBC 4.32 Hgb 11.8 L Hct 36.6 L MCV 84.7 MCH 27.3 MCHC 32.2 RDW 13.4 Plt Count 181 MPV 12.2 H Immature Gran % (Auto) 0.3 Neut % (Auto) 57.1 Lymph % (Auto) 33.7 [place] % (Auto) 5.4 Eos % (Auto) 2.7 Baso % (Auto) 0.8 Lymph # (Auto) 2.60 [place] # (Auto) 0.4 Eos # (Auto) 0.2 Baso # (Auto) 0.1 Abs Immat Gran (auto) 0.02 Absolute Neuts (auto) 4.4 Absolute Nucleated RBC 0.0 Nucleated RBC % 0.0 Sodium Potassium Chloride Carbon Dioxide Anion Gap BUN Creatinine Estim Creat Clear Calc Estimated GFR Glucose POC Capillary Glucose 360 H 368 H Calcium Magnesium 03/17/20 16:33 WBC RBC Hgb Hct MCV MCH MCHC RDW Plt Count MPV Immature Gran % (Auto) Neut % (Auto) Lymph % (Auto) [place] % (Auto) Eos % (Auto) Baso % (Auto) Lymph # (Auto) [place] # (Auto) Eos # (Auto) Baso # (Auto) Abs Immat Gran (auto) Absolute Neuts (auto) Absolute Nucleated RBC Nucleated RBC % Sodium Potassium Chloride Carbon Dioxide Anion Gap BUN Creatinine Estim Creat Clear Calc Estimated GFR Glucose POC Capillary Glucose 236 H Calcium Magnesium Preliminary micro results at discharge 03/16/20 23:26 Blood Culture - Preliminary Blood 03/16/20 23:26 Blood Culture - Preliminary Blood 03/16/20 22:49 Urine Culture - Preliminary Urine Clean Catch Escherichia Coli Discharge Plan Discharge Patient Instructions: How to Stop Smoking (DC), Pain Management (DC), Kidney Infection (DC), Safe Use of Anticoagulants (GEN), Diabetes and Nutrition (DC) Discharge Medications: No Action aspirin 81 mg tablet 81 mg PO DAILY RF: 0 tiotropium bromide 2.5 mcg/actuation mist 2 puff INHALATION DAILY PRN (Reason: Shortness Of Breath) RF: 0 losartan 25 mg tablet 25 mg PO DAILY RF: 0 duloxetine 60 mg capsule,delayed release(DR/EC) 60 mg PO BID RF: 0 cinnamon bark 500 mg capsule 500 mg PO DAILY RF: 0 cyclobenzaprine 10 mg tablet 10 mg PO HS RF: 0 cholecalciferol (vitamin D3) 2,000 unit tablet 2,000 unit PO DAILY RF: 0 Repatha Syringe 140 mg/mL Syringe 140 mg SUBCUT [id number] RF: 0 ibuprofen 800 mg tablet 800 mg PO BID PRN (Reason: Pain) RF: 0 Humulin R U-500 (Conc) Kwikpen 500 unit/mL (3 mL) insulin pen 60 unit SUBCUT .COMPLEX RF: 0 pregabalin 150 mg capsule 150 mg PO QID RF: 0 Date of admission: 03/17/20 01:03 Primary Care Provider: Zay Martinez Admitting Provider: Danny Fregoso Attending physician on admission: Daisy Wallace Condition: Stable Quality VTE Prophylaxis VTE prophylaxis: mechanical ordered (SCDs)
[2020-03-18 16:35] LABS: Glucose Point of Care 241 (65-105)
--- NOTE | 2020-03-18 17:28 | PM.IMPN ---
Progress Note: A&P Assessment and Plan (1) Acute pyelonephritis: Code(s): N10 - Acute pyelonephritis Status: Acute Assessment and Plan: Patient presents with dysuria x5 days and nausea/vomiting. CT abdomen shows findings consistent with acute left-sided pyelonephritis. Continue IV ceftriaxone while awaiting urine and blood cultures. Supportive care with pain control, antiemetics, and IV hydration. Patient declined oral potassium tabs and liquid this morning. She requested K be replaced IV. K rider started this afternoon and is still running. Discharge is completed, discussed with RN that she can discharge after K rider is finished. Patient reports her daughter is not available to pick her up that late and will have to stay overnight. (2) Hypokalemia: Code(s): E87.6 - Hypokalemia Status: Acute Assessment and Plan: K 3.0 this morning. Patient refused oral potassium tablets and also liquid powder. IV KCl ordered this afternoon. Recheck in AM. (3) Nausea & vomiting: Qualifiers: Vomiting Intractability: non-intractable Vomiting type: unspecified Qualified Code(s): R11.2 - Nausea with vomiting, unspecified Code(s): R11.2 - Nausea with vomiting, unspecified Status: Resolved Assessment and Plan: None today. Continue supportive care. (4) Diabetes mellitus with hyperglycemia: Qualifiers: Diabetes mellitus type: type 2 Diabetes mellitus retirement insulin use: with ferry terminal supervisor use Qualified Code(s): E11.65 - Type 2 diabetes mellitus with hyperglycemia; Z79.4 - [facility]PC (current) use of insulin Code(s): E11.65 - Type 2 diabetes mellitus with hyperglycemia Status: Acute Assessment and Plan: With large doses of Regular insulin as home regimen. Continue Lantus BID and add more insulin as needed. Continue to monitor with Accu-cheks, cover with sliding scale and adjust treatment as needed. BG 573 on arrival. She reports she hasnt been eating or drinking well but drank gatorade prior to arrival and didn't realize the sugar content. (5) COPD (chronic obstructive pulmonary disease): Qualifiers: COPD type: unspecified COPD Qualified Code(s): J44.9 - Chronic obstructive pulmonary disease, unspecified Code(s): J44.9 - Chronic obstructive pulmonary disease, unspecified Status: Chronic Assessment and Plan: Continue bronchodilators. No acute respiratory symptoms. Subjective Date/time seen: 03/18/20 1245 Interval history: Ms. Vaughn is a 54 yo F admitted for acute pyelonephritis. She is feeling a bit better than when she came in but is feeling tired. She was having nausea and vomiting prior to arrival but she notes this has improved. She endorses left flank pain and dysuria have improved. She denies chest pain or shortness of breath. Review of Systems Review of Systems: Narrative: Twelve systems were reviewed with pertinent positives and negatives as per HPI. Exam Narrative: Exam Narrative: General: Female resting supine in bed in no acute distress. HEENT: Normocephalic, EOMI, oral mucosa moist. Cardiovascular: Rate and rhythm are regular. Respiratory: Lungs clear to auscultation all mistry. Non-labored breathing. Abdomen: Soft, some mild left flank tenderness to palpation without guarding, non-distended, bowel sounds present. Extremities: Peripheral pulses intact. No edema. Neuro: No focal neurological deficits. Speech is clear. Objective Data Vital Signs Vital Signs: Last Vital Signs Temp 97.2 F L 03/18/20 14:00 Pulse 81 03/18/20 14:00 Resp 18 03/18/20 14:00 BP 133/61 03/18/20 14:00 Pulse Ox 96 03/18/20 14:00 Intake/Output Intake/Output: Intake & Output 03/15/20 03/16/20 03/17/20 03/18/20 23:59 23:59 23:59 23:59 Intake Total
[2020-03-18 19:24] VITALS: BP 151/59; PULSE 90; RESP 15; TEMP 36.6; O2SAT 100
[2020-03-18] MEDS: CYCLOBENZAPRINE HCL 10 MG TABLET PO (20:47)
[2020-03-18 20:49] LABS: Glucose Point of Care 216 (65-105)
[2020-03-19 05:03] VITALS: BP 122/68; PULSE 84; RESP 18; TEMP 36.6; O2SAT 94
[2020-03-19 06:25] LABS: Anion Gap 7.8 mmol/L (7-16); Blood Urea Nitrogen 5 mg/dL (7-17); Calcium 7.6 mg/dL (8.4-10.2); Carbon Dioxide 29 mmol/L (22-30); Chloride 106 mmol/L (98-107); Estimated CRCL calculation 106 ml/min; Estimated Glomerular Filt Rate > 60; Glucose 90 mg/dL (65-105); Magnesium 1.6 mg/dL (1.6-2.3); Potassium 2.8 mmol/L (3.4-5.0); Sodium 140 mmol/L (137-145)
[2020-03-19 07:49] LABS: Glucose Point of Care 124 (65-105)
[2020-03-19] MEDS: NICOTINE (*PBKC) 21 MG PATCH 1 PATCH TRANSDERM (07:57)
[2020-03-19] MEDS: DULoxetine HCL 60 MG CAPSULE.DR PO ×2 (07:58→19:06)
[2020-03-19] MEDS: CHOLECALCIFEROL 1,000 UNIT TABLET 2000 UNITS PO (07:58)
[2020-03-19] MEDS: MAGNESIUM OXIDE 400 MG TABLET PO (07:59)
[2020-03-19] MEDS: ASPIRIN 81 MG CHEWABLE TABLET PO (07:59)
[2020-03-19] MEDS: LOSARTAN POTASSIUM 25 MG TABLET PO (07:59)
[2020-03-19 08:00] VITALS: PULSE 84; RESP 18; O2SAT 94
[2020-03-19] MEDS: PREGABALIN 75 MG CAPSULE 150 MG PO ×3 (08:08→19:02)
[2020-03-19] MEDS: INSULIN GLARGINE (*BKC) 100 UNITS/ML 30 UNITS SUB-Q ×2 (08:08→19:02)
[2020-03-19] MEDS: POTASSIUM CHLORIDE 20 MEQ TABLET 60 MEQ PO (10:46)
[2020-03-19] MEDS: ONDANSETRON INJ 4 MG/2 ML VIAL IV PUSH (10:47)
--- NOTE | 2020-03-19 11:48 | PM.IMPN ---
Progress Note: A&P Assessment and Plan (1) Acute pyelonephritis: Code(s): N10 - Acute pyelonephritis Status: Acute Assessment and Plan: Patient presents with dysuria x5 days and nausea/vomiting. CT abdomen shows findings consistent with acute left-sided pyelonephritis. Urine culture grew E coli. Blood cultures are pending with no growth to date. Continue IV ceftriaxone (day 3). Supportive care with pain control, antiemetics, and IV hydration. (2) Hypokalemia: Code(s): E87.6 - Hypokalemia Status: Acute Assessment and Plan: K 2.8 this morning. Unfortunately patient was been declining all oral potassium supplementation despite repeated teaching. Receiving 40meq IV KCl and through much encouragement she was able to take additional 60meq oral. Mag 1.6 and replaced. Repeat labs this afternoon. (3) Nausea & vomiting: Qualifiers: Vomiting Intractability: non-intractable Vomiting type: unspecified Qualified Code(s): R11.2 - Nausea with vomiting, unspecified Code(s): R11.2 - Nausea with vomiting, unspecified Status: Resolved Assessment and Plan: None today. Continue supportive care. (4) Diabetes mellitus with hyperglycemia: Qualifiers: Diabetes mellitus group home insulin use: with u.s. commissioner use Diabetes mellitus type: type 2 Qualified Code(s): E11.65 - Type 2 diabetes mellitus with hyperglycemia; Z79.4 - shelter (current) use of insulin Code(s): E11.65 - Type 2 diabetes mellitus with hyperglycemia Status: Acute Assessment and Plan: With large doses of Regular insulin as home regimen. Continue Lantus BID and add more insulin as needed. Continue to monitor with Accu-cheks, cover with sliding scale and adjust treatment as needed. (5) COPD (chronic obstructive pulmonary disease): Qualifiers: COPD type: unspecified COPD Qualified Code(s): J44.9 - Chronic obstructive pulmonary disease, unspecified Code(s): J44.9 - Chronic obstructive pulmonary disease, unspecified Status: Chronic Assessment and Plan: Continue bronchodilators. No acute respiratory symptoms. Subjective Date/time seen: 03/19/20 1030 Interval history: Ms. Vaughn is a 54 yo F admitted for acute pyelonephritis and hypokalemia. She reports feeling okay and offers no complaints. Her nausea has resolved and left flank pain is improved. Dysuria improved. She denies chest pain or shortness of breath. Tolerating oral intake. Review of Systems Review of Systems: Narrative: Twelve systems were reviewed with pertinent positives and negatives as per HPI. Exam Narrative: Exam Narrative: General: Female resting supine in bed in no acute distress. HEENT: Normocephalic, EOMI, oral mucosa moist. Cardiovascular: Rate and rhythm are regular. Respiratory: Lungs clear to auscultation all mistry. Non-labored breathing. Abdomen: Soft, some mild left flank tenderness to palpation without guarding, non-distended, bowel sounds present. Extremities: Peripheral pulses intact. No edema. Neuro: No focal neurological deficits. Speech is clear. Objective Data Vital Signs Vital Signs: Last Vital Signs Temp 97.5 F L 03/19/20 14:00 Pulse 79 03/19/20 14:00 Resp 18 03/19/20 14:00 BP 129/62 03/19/20 14:00 Pulse Ox 99 03/19/20 14:00 Intake/Output Intake/Output: Intake & Output 03/16/20 03/17/20 03/18/20 03/19/20 23:59 23:59 23:59 23:59 Intake Total 2800 3620 740 Output Total 1850 2100 1650 Balance 950 1520 -910 Meds/Results Medications: Active Medications Generic Name Dose Route Start Last Admin Trade Name Freq PRN Reason Stop Dose Admin Acetaminophen 1,000 mg 03/17/20 15:25 Tylenol Tablet PO Q6H PRN Pain Rated 5 or Less Hydrocodone Bitart/Acetaminophe
[2020-03-19 11:52] LABS: Glucose Point of Care 247 (65-105)
[2020-03-19] MEDS: MAGNESIUM SULF 2 GM/WATER 50ML 2 GM/50 ML BAG IVPB (11:59)
[2020-03-19] MEDS: INSULIN ASPART (*BKC) 100 UNITS/ML SUB-Q ×2 (12:04→18:11)
[2020-03-19 14:00] VITALS: BP 129/62; PULSE 79; RESP 18; TEMP 36.4; O2SAT 99
[2020-03-19 15:41] LABS: Anion Gap 10.3 mmol/L (7-16); Blood Urea Nitrogen 7 mg/dL (7-17); Calcium 7.9 mg/dL (8.4-10.2); Carbon Dioxide 22 mmol/L (22-30); Chloride 111 mmol/L (98-107); Estimated CRCL calculation 106 ml/min; Estimated Glomerular Filt Rate > 60; Glucose 253 mg/dL (65-105); Potassium 4.3 mmol/L (3.4-5.0); Sodium 139 mmol/L (137-145)
--- NOTE | 2020-03-19 15:51 | PM.DS ---
DS: Admitting Diagnosis Admitting Diagnosis Admitting Diagnosis: Acute pyelonephritis DS: Discharge Diagnosis Discharge Diagnosis (1) Acute pyelonephritis: Code(s): N10 - Acute pyelonephritis Status: Acute Assessment and Plan: Date of Service 03/19/20 Ms. Vaughn is a 54 yo F with history of insulin-dependent type 2 diabetes mellitus, COPD, hypertension, and coronary artery disease who presented to the ED for evaluation of left flank pain, dysuria, nausea and vomiting that began 5 days prior to arrival. CT abdomen/pelvis demonstrated findings consistent with acute pyelonephritis. Urine culture grew E coli. She was treated with antiemetics and 3 days of ceftriaxone; discharged with oral cefdinir to complete course based on sensitivity report. Blood sugar was 573 on arrival but improved once insulin regimen was resumed. She was noted to have hypokalemia with potassium as low as 2.8. Unfortunately she continued to decline oral potassium replacement until day of discharge. She received IV KCl and did eventually agree to taking oral KCl. Potassium was stable at 4.3 at discharge and she was instructed to get recheck labs drawn with results to PCP. Her initial symptoms improved with IV antibiotics and she was hemodynamically stable for discharge 03/19/2020 with plans to follow-up with PCP. Blood cultures are pending no growth to date on day of discharge will be followed to final. (2) Hypokalemia: Code(s): E87.6 - Hypokalemia Status: Acute Assessment and Plan: K 2.8 this morning. Unfortunately patient was been declining all oral potassium supplementation despite repeated teaching. Receiving 40meq IV KCl and through much encouragement she was able to take additional 60meq oral. Mag 1.6 and replaced. Repeat labs prior to discharge demonstrate potassium 4.3, magnesium 2.0. (3) Nausea & vomiting: Qualifiers: Vomiting Intractability: non-intractable Vomiting type: unspecified Qualified Code(s): R11.2 - Nausea with vomiting, unspecified Code(s): R11.2 - Nausea with vomiting, unspecified Status: Resolved Assessment and Plan: Resolved. (4) Diabetes mellitus with hyperglycemia: Qualifiers: Diabetes mellitus type: type 2 Diabetes mellitus senior living insulin use: with terminologist use Qualified Code(s): E11.65 - Type 2 diabetes mellitus with hyperglycemia; Z79.4 - medical terminologist (current) use of insulin Code(s): E11.65 - Type 2 diabetes mellitus with hyperglycemia Status: Acute Assessment and Plan: Maintained on BID insulin. Encouraged to continue checking her blood sugars regularly at home and follow-up with PCP. (5) COPD (chronic obstructive pulmonary disease): Qualifiers: COPD type: unspecified COPD Qualified Code(s): J44.9 - Chronic obstructive pulmonary disease, unspecified Code(s): J44.9 - Chronic obstructive pulmonary disease, unspecified Status: Chronic Assessment and Plan: Continue bronchodilators. No acute respiratory symptoms. (6) Coronary artery disease: Code(s): I25.10 - Atherosclerotic heart disease of [place] coronary artery without angina pectoris Status: Chronic Assessment and Plan: Follows with Dr. Durant at [facility]. Stable. No chest pain. She will follow-up with her adaptive physical educator. DS: Summary Time Spent with Patient Time attestation: Total time spent providing and/or coordinating discharge services: 35 mintues Exam Narrative: Exam Narrative: General: Female resting supine in bed in no acute distress. HEENT: Normocephalic, EOMI, oral mucosa moist. Cardiovascular: Rate and rhythm are regular. Respiratory: Lungs clear to auscultation all mistry. Non-labored breathing. Abdomen: Soft, so
[2020-03-19 17:12] LABS: Glucose Point of Care 245 (65-105)
--- NOTE | 2020-03-26 11:04 | PC.NURSE ---
Blood cx is negative
== END 2020-03-19 20:30 | disposition home or self-care (01) ==
LOC: ANHED 03-17 01:07 → ANH3MED 03-17 01:14
PROVIDERS: Physician Assistant; Admitting Provider Family Medicine; Emergency Provider Emergency Medicine; PCP Emergency Medicine; Visit Provider Internal Medicine
DX: N10 Acute pyelonephritis (principal); B96.20 Unspecified Escherichia coli [E. coli] as the cause of diseases classified elsewhere; E87.6 Hypokalemia; R11.2 Nausea with vomiting, unspecified; E11.65 Type 2 diabetes mellitus with hyperglycemia; E11.42 Type 2 diabetes mellitus with diabetic polyneuropathy; E11.51 Type 2 diabetes mellitus with diabetic peripheral angiopathy without gangrene; E11.610 Type 2 diabetes mellitus with diabetic neuropathic arthropathy; J44.9 Chronic obstructive pulmonary disease, unspecified; I25.10 Atherosclerotic heart disease of native coronary artery without angina pectoris; I10 Essential (primary) hypertension; F17.210 Nicotine dependence, cigarettes, uncomplicated; E78.00 Pure hypercholesterolemia, unspecified; Z79.4 Long term (current) use of insulin; Z79.82 Long term (current) use of aspirin; Z79.899 Other long term (current) drug therapy
CPT/HCPCS: 36415; 74177; 80048; 80053; 81001; 81025; 83605; 83735; 85025; 87040; 87077; 87086; 87088; 87186; 96361; 96365; 96366; 96367; 96375; 97161; 97165; 99285; A9270; G0378; J0696; J1815; J1885; J2405; J3475; J3480; J7030; Q9967

== ENCOUNTER 2020-03-28 21:06 | Emergency (ER) | payer MEDICARE, MEDICAID, SELFPAY ==
[2020-03-28 21:13] VITALS: BP 128/76; PULSE 100; RESP 17; TEMP 36.6; O2SAT 99
[2020-03-28 21:28] LABS: Glucose Point of Care > 500 (65-105)
--- NOTE | 2020-03-28 21:36 | PC.NURSE ---
RN into straight catheterized pt. Pt. tearful and crying stating it is my body and I refuse Pt.'s daughter yelling at patient stating that she needs this test done. Pt. still refusing at this time. And states she wants to go home. RN informed the Pt. she can leave AMA if she would like, but she needs to update RN when she makes a decision.
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
--- NOTE | 2020-03-28 22:08 | PCRCNOTE ---
Rt at bedside to obtain abg joshua berg RN aware
[2020-03-28] MEDS: SODIUM CHLORIDE 0.9% IV 1,000 ML 999 ML IV CONT ×2 (22:11→23:00)
[2020-03-28 22:22] LABS: Basophils Absolute Auto 0.1 K/mm3 (0.0-0.1); Basophils Percent Auto 0.7 % (0.2-1.2); Eosinophils Absolute Auto 0.2 K/mm3 (0-0.3); Eosinophils Percent Auto 1.5 % (0-4.4); Hematocrit 44.4 % (37.0-47.0); Hemoglobin 14.8 g/dL (12.0-15.0); Immature Granulocyte Absolute 0.04 K/mm3 (0.00-0.031); Immature Granulocyte Percent A 0.3 % (0-0.5); Lymphocytes Absolute Auto 3.41 K/mm3 (0.9-3.2); Lymphocytes Percent Auto 28.5 % (18.3-44.2); Mean Corpuscular HGB Conc 33.3 g/dl (32-36); Mean Corpuscular Hemoglobin 27.7 pg (26-34); Mean Platelet Volume 11.4 fl (7.4-10.4); Monocytes Absolute Auto 0.5 K/mm3 (0.1-0.6); Monocytes Percent Auto 4.3 % (2.6-8.5); Neutrophils Absolute Auto 7.7 K/mm3 (1.3-6.7); Neutrophils Percent Auto 64.7 % (45.5-73.1); Platelet Count Result 260 k/mm3 (150-375); Red Blood Count 5.35 M/mm3 (4.2-5.4); Red Cell Distribution Width 13.3 % (11.5-14.5)
--- NOTE | 2020-03-28 22:34 | PC.NURSE ---
Pt. refusing ABG. ERP notified, no further orders at this time.
[2020-03-28 22:39] LABS: Glucose 534 mg/dL (65-105)
[2020-03-28 22:40] LABS: Alanine Aminotransferase 26 U/L (4-35); Albumin Level 4.3 g/dL (3.5-5.1); Alkaline Phosphatase 153 U/L (38-126); Anion Gap 14 mmol/L (8-16); Aspartate Amino Transferase 27 U/L (14-36); Bilirubin,Total 0.4 mg/dL (0.2-1.3); Blood Urea Nitrogen 12 mg/dL (7-17); Calcium 9.1 mg/dL (8.4-10.2); Carbon Dioxide 23 mmol/L (22-30); Chloride 96 mmol/L (98-107); Estimated CRCL calculation 75 ml/min; Estimated Glomerular Filt Rate > 60; Potassium 4.3 mmol/L (3.4-5.0); Sodium 133 mmol/L (137-145)
[2020-03-28 22:41] LABS: Beta-Hydroxybutyrate/Acetoacetate 0.06 mmol/L (0.02-0.27)
[2020-03-28 22:46] LABS: Add Urine Microscopic? YES; Appearance Urine Clear (Clear); Bilirubin Urine Negative (Negative); Blood Urine Negative (Negative); Color Urine Straw (Yellow); Glucose Urine UA 3+ mg/dL (Negative); Ketones Urine Negative (Negative); Leukocyte Esterase Ur Negative LEU/UL (Negative); Nitrate Urine Negative (Negative); Protein Urine Negative (Negative); RBC Urine 0-2 /hpf (0-2); Specific Grav Ur 1.028 (1.001-1.035); Urobilinogen Urine Negative mg/dL (<2.0); WBC Urine 0-3 /hpf
[2020-03-28] MEDS: INSULIN HUMAN REGULAR (*BKC) 100 UNITS/ML 10 UNITS IV PUSH (23:03)
--- NOTE | 2020-03-28 23:09 | PC.NURSE ---
report received at this time from DES Cherry. pt resting on stretcher with daughter at bedside. pt continues to refuse ABG. VS stable, RR even and unlabored. updated on poc, will continue to monitor pt for baseline status changes.
[2020-03-28 23:10] LABS: Glucose Point of Care 461 (65-105)
[2020-03-28 23:11] VITALS: BP 127/99; PULSE 87; RESP 18; O2SAT 97
[2020-03-28 23:51] LABS: Glucose Point of Care 285 (65-105)
[2020-03-29 00:46] VITALS: BP 135/82; PULSE 81; RESP 18; O2SAT 96
== END 2020-03-29 00:47 | disposition home or self-care (01) ==
PROVIDERS: General Practice; Emergency Provider Emergency Medicine; PCP Emergency Medicine
DX: E11.65 Type 2 diabetes mellitus with hyperglycemia (principal); E86.0 Dehydration; F17.210 Nicotine dependence, cigarettes, uncomplicated; J44.9 Chronic obstructive pulmonary disease, unspecified; I25.10 Atherosclerotic heart disease of native coronary artery without angina pectoris; F32.9 Major depressive disorder, single episode, unspecified; Z79.4 Long term (current) use of insulin
CPT/HCPCS: 36415; 51701; 80053; 81001; 82010; 85025; 87077; 87086; 87088; 87186; 96361; 96374; 96375; 99284; J1815; J2060; J7030

== ENCOUNTER 2020-04-03 18:44 | Emergency (ER) | payer MEDICARE, MEDICAID, SELFPAY ==
[2020-04-03 18:57] VITALS: BP 124/72; PULSE 97; RESP 16; TEMP 36.6; O2SAT 97
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
[2020-04-03 19:59] LABS: Add Urine Microscopic? YES; Appearance Urine Clear (Clear); Bacteria Urine Trace /hpf; Bilirubin Urine Negative (Negative); Blood Urine Negative (Negative); Color Urine Yellow (Yellow); Glucose Urine UA 2+ mg/dL (Negative); Ketones Urine Negative (Negative); Leukocyte Esterase Ur 2+ LEU/UL (Negative); Mucus Urine Rare /lpf; Nitrate Urine Negative (Negative); Protein Urine 1+ mg/dL (Negative); RBC Urine 0-2 /hpf (0-2); Specific Grav Ur 1.016 (1.001-1.035); Squamous Epithelial Cell Urine Rare /hpf (Few); Urobilinogen Urine Negative mg/dL (<2.0); WBC Urine 21-30 /hpf
[2020-04-03 20:09] LABS: Glucose Point of Care 198 (65-105)
[2020-04-03] MEDS: NITROFURANTOIN MONOHYD MACROCR 100 MG CAP PO (20:29)
[2020-04-03 20:30] VITALS: BP 122/76; PULSE 82; RESP 16; TEMP 36.7; O2SAT 98
== END 2020-04-03 20:30 | disposition home or self-care (01) ==
PROVIDERS: Emergency Medicine; Emergency Provider Emergency Medicine; PCP Emergency Medicine
DX: N39.0 Urinary tract infection, site not specified (principal); F17.210 Nicotine dependence, cigarettes, uncomplicated; J44.9 Chronic obstructive pulmonary disease, unspecified; I25.10 Atherosclerotic heart disease of native coronary artery without angina pectoris; E78.00 Pure hypercholesterolemia, unspecified; E11.610 Type 2 diabetes mellitus with diabetic neuropathic arthropathy; Z79.4 Long term (current) use of insulin; E11.51 Type 2 diabetes mellitus with diabetic peripheral angiopathy without gangrene; E11.42 Type 2 diabetes mellitus with diabetic polyneuropathy
CPT/HCPCS: 81001; 87077; 87086; 87088; 87186; 99283; A9270

== ENCOUNTER 2020-04-09 17:05 | Emergency (ER) | payer MEDICARE, MEDICAID, SELFPAY ==
[2020-04-09 17:11] VITALS: BP 93/65; PULSE 95; RESP 17; TEMP 36.8; O2SAT 98
[2020-04-09 18:16] LABS: Basophils Percent Auto 0.5 % (0.2-1.2); Eosinophils Absolute Auto 0.2 K/mm3 (0-0.3); Hematocrit 35.7 % (37.0-47.0); Hemoglobin 11.6 g/dL (12.0-15.0); Immature Granulocyte Absolute 0.04 K/mm3 (0.00-0.031); Immature Granulocyte Percent A 0.5 % (0-0.5); Lymphocytes Absolute Auto 2.69 K/mm3 (0.9-3.2); Lymphocytes Percent Auto 32.3 % (18.3-44.2); Mean Corpuscular HGB Conc 32.5 g/dl (32-36); Mean Corpuscular Hemoglobin 27.4 pg (26-34); Mean Corpuscular Volume 84.4 fl (80-100); Mean Platelet Volume 10.8 fl (7.4-10.4); Monocytes Absolute Auto 0.5 K/mm3 (0.1-0.6); Monocytes Percent Auto 5.4 % (2.6-8.5); Neutrophils Absolute Auto 4.9 K/mm3 (1.3-6.7); Neutrophils Percent Auto 59.3 % (45.5-73.1); Platelet Count Result 176 k/mm3 (150-375); Red Blood Count 4.23 M/mm3 (4.2-5.4); Red Cell Distribution Width 14.1 % (11.5-14.5); White Blood Count 8.3 K/mm3 (4.5-10.0)
[2020-04-09 18:19] LABS: Add Urine Microscopic? YES; Appearance Urine Clear (Clear); Bacteria Urine Trace /hpf; Bilirubin Urine Negative (Negative); Blood Urine Negative (Negative); Color Urine Yellow (Yellow); Glucose Urine UA 3+ mg/dL (Negative); Ketones Urine Negative (Negative); Leukocyte Esterase Ur Trace LEU/UL (Negative); Mucus Urine Rare /lpf; Nitrate Urine Negative (Negative); Protein Urine Negative (Negative); RBC Urine 0-2 /hpf (0-2); Specific Grav Ur 1.027 (1.001-1.035); Squamous Epithelial Cell Urine Occasional /hpf (Few); Urobilinogen Urine Negative mg/dL (<2.0); WBC Urine 21-30 /hpf
[2020-04-09 18:27] LABS: Alanine Aminotransferase 18 U/L (4-35); Albumin Level 3.5 g/dL (3.5-5.1); Alkaline Phosphatase 95 U/L (38-126); Anion Gap 6 mmol/L (8-16); Aspartate Amino Transferase 22 U/L (14-36); Bilirubin,Total 0.2 mg/dL (0.2-1.3); Blood Urea Nitrogen 10 mg/dL (7-17); Calcium 8.3 mg/dL (8.4-10.2); Carbon Dioxide 27 mmol/L (22-30); Chloride 102 mmol/L (98-107); Estimated CRCL calculation 75 ml/min; Estimated Glomerular Filt Rate > 60; Glucose 288 mg/dL (65-105); Potassium 3.8 mmol/L (3.4-5.0); Sodium 135 mmol/L (137-145)
[2020-04-09 19:09] VITALS: BP 139/98; PULSE 79; RESP 20; TEMP 36.9; O2SAT 96
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
[2020-04-09] MEDS: LIDOCAINE HCL 1% LOCAL INJ 20 ML VIAL (19:58)
[2020-04-09] MEDS: cefTRIAXone 1 GM VIAL IM (19:58)
[2020-04-09 20:00] VITALS: BP 133/89; PULSE 84; RESP 19; TEMP 36.7; O2SAT 97
== END 2020-04-09 20:20 | disposition home or self-care (01) ==
PROVIDERS: Physician Assistant; Emergency Provider Emergency Medicine; PCP Emergency Medicine
DX: N30.00 Acute cystitis without hematuria (principal); F17.210 Nicotine dependence, cigarettes, uncomplicated
CPT/HCPCS: 36415; 80053; 81001; 85025; 87077; 87086; 87088; 87186; 96372; 99283; J0696

== ENCOUNTER 2020-07-04 20:18 | Emergency (ER) | payer MEDICARE, MEDICAID, SELFPAY ==
--- NOTE | ~2020-07-04 | XR_ITS ---
EXAMINATION: XR knee LT 3V DATE: 07/04/2020 20:54 INDICATION: Left knee pain post fall TECHNIQUE: Anteroposterior, 2 oblique and crosstable lateral views of the left knee were obtained COMPARISON: None. FINDINGS: Alignment is normal. No fracture. No joint effusion/layering lipohemarthrosis. There are few scatter ed atherosclerotic calcifications. Soft tissues are unremarkable. IMPRESSION: 1. No left knee joint effusion or osseous abnormality. Reviewed, dictated and finalized at location . 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
[2020-07-04 20:35] VITALS: PULSE 100; TEMP 36.8; O2SAT 96
[2020-07-04 20:53] LABS: Glucose Point of Care > 500 (65-105)
[2020-07-04 21:16] LABS: Basophils Percent Auto 0.4 % (0.2-1.2); Eosinophils Absolute Auto 0.1 K/mm3 (0-0.3); Eosinophils Percent Auto 0.8 % (0-4.4); Hematocrit 41.7 % (37.0-47.0); Immature Granulocyte Absolute 0.03 K/mm3 (0.00-0.031); Immature Granulocyte Percent A 0.3 % (0-0.5); Lymphocytes Absolute Auto 2.34 K/mm3 (0.9-3.2); Lymphocytes Percent Auto 23.5 % (18.3-44.2); Mean Corpuscular HGB Conc 33.6 g/dl (32-36); Mean Corpuscular Hemoglobin 28.7 pg (26-34); Mean Corpuscular Volume 85.6 fl (80-100); Mean Platelet Volume 12.1 fl (7.4-10.4); Monocytes Absolute Auto 0.5 K/mm3 (0.1-0.6); Monocytes Percent Auto 4.8 % (2.6-8.5); Neutrophils Percent Auto 70.2 % (45.5-73.1); Platelet Count Result 189 k/mm3 (150-375); Red Blood Count 4.87 M/mm3 (4.2-5.4); Red Cell Distribution Width 13.2 % (11.5-14.5)
[2020-07-04 21:31] LABS: Alanine Aminotransferase 21 U/L (4-35); Albumin Level 4.3 g/dL (3.5-5.1); Alkaline Phosphatase 120 U/L (38-126); Anion Gap 12 mmol/L (8-16); Aspartate Amino Transferase 24 U/L (14-36); Bilirubin,Total 0.5 mg/dL (0.2-1.3); Blood Urea Nitrogen 13 mg/dL (7-17); Calcium 9.3 mg/dL (8.4-10.2); Carbon Dioxide 24 mmol/L (22-30); Chloride 96 mmol/L (98-107); Estimated Glomerular Filt Rate > 60; Glucose 577 mg/dL (65-105); Potassium 3.9 mmol/L (3.4-5.0); Sodium 132 mmol/L (137-145)
[2020-07-04 21:44] LABS: Beta-Hydroxybutyrate/Acetoacetate 0.11 mmol/L (0.02-0.27)
[2020-07-04] MEDS: SODIUM CHLORIDE 0.9% IV 2,000 ML 999 ML IV CONT (21:52)
[2020-07-04 21:53] VITALS: PULSE 92; RESP 19; O2SAT 98
[2020-07-04 22:03] VITALS: PULSE 94; RESP 22; O2SAT 98
[2020-07-04 22:15] VITALS: PULSE 85; RESP 13; O2SAT 100
[2020-07-04 22:16] LABS: Add Urine Microscopic? YES; Appearance Urine Clear (Clear); Bacteria Urine Trace /hpf; Bilirubin Urine Negative (Negative); Blood Urine 1+ (Negative); Color Urine Straw (Yellow); Glucose Urine UA 3+ mg/dL (Negative); Ketones Urine Negative (Negative); Leukocyte Esterase Ur 1+ LEU/UL (Negative); Mucus Urine Rare /lpf; Nitrate Urine Negative (Negative); Protein Urine Negative (Negative); Specific Grav Ur 1.031 (1.001-1.035); Squamous Epithelial Cell Urine Rare /hpf (Few); Urobilinogen Urine Negative mg/dL (<2.0)
[2020-07-04 22:30] VITALS: PULSE 87; RESP 12; O2SAT 100
--- NOTE | 2020-07-04 22:31 | PC.NURSE ---
2 liters of IVF done. FSBS 411. patient c/o back pain and knee pain. also states she has neuropathy. wants pain meds but takes only ibuprofen at home. alert. resting on stretcher. on monitor. lights out.
[2020-07-04 22:32] LABS: Glucose Point of Care 411 (65-105)
[2020-07-04 22:45] VITALS: PULSE 85; RESP 18; O2SAT 100
[2020-07-04] MEDS: INSULIN HUMAN REGULAR (*BKC) 100 UNITS/ML 10 UNITS IV PUSH (22:49)
--- NOTE | 2020-07-04 22:53 | PC.NURSE ---
resting on stretcher. IV insulin given. still wants pain medications. provider aware. on performance analyst. alert. oriented.
[2020-07-05 00:04] LABS: Glucose Point of Care 246 (65-105)
--- NOTE | 2020-07-05 00:11 | ED.LOWEXIN ---
HPI - Extremity Injury (Lower) General Chief Complaint: Extremity Injury, Lower Stated Complaint: FALL,HIGH BLOOD SUGAR Time Seen by Provider: 07/04/20 20:31 History of Present Illness HPI Narrative: Patient is a 54-year-old female who presents the emergency department with chief complaint of left knee pain. The patient reports that she slipped due to her walking boot and injured her knee. The patient states the pain hurts in her but she moves it reports that she had no other injuries incidentally the patient is a insulin-dependent diabetic and has not been checking her blood sugars and not taking her insulin. Patient was found by EMS to have a blood sugar over 500. Patient denies nausea vomiting denies chest pain denies shortness of breath. Related Data Home Medications Medication Instructions Recorded Confirmed aspirin 81 mg tablet 81 mg PO DAILY 07/24/19 06/11/20 cinnamon bark 500 mg capsule 500 mg PO DAILY cap 07/24/19 06/11/20 duloxetine 60 mg capsule,delayed 60 mg PO BID 07/24/19 06/11/20 release losartan 25 mg tablet 25 mg PO DAILY tablet 07/24/19 06/11/20 tiotropium bromide 2.5 2 puff INHALATION DAILY PRN 07/24/19 06/11/20 mcg/actuation mist for inhalation Repatha Syringe 140 mg SUBCUT [id number] 01/29/20 06/11/20 cholecalciferol (vitamin D3) 2,000 unit PO DAILY 01/29/20 06/11/20 insulin regular hum U-500 conc 60 unit SUBCUT .COMPLEX ml 02/09/20 06/11/20 pregabalin 150 mg PO QID 03/17/20 06/11/20 Allergies Allergy/AdvReac Type Severity Reaction Status Date / Time No Known Allergies Allergy Verified 07/04/20 22:03 Review of Systems Review of Systems: Narrative: CONSTITUTIONAL: Denies fever, chills, or sweats. EYES: Denies visual changes, redness, or discharge. ENT: Denies rhinorrhea, congestion, sore throat, or otalgia. CARDIOVASCULAR: Denies chest pain, palpitations, or edema. RESPIRATORY: Denies cough or dyspnea. GASTROINTESTINAL: Denies abdominal pain, nausea, vomiting, or diarrhea. GENITOURINARY: Denies dysuria or hematuria. SKIN: Denies rash or itching. MUSCULOSKELETAL: Denies back pain, joint pain, or myalgia. NEUROLOGIC: Denies headache, numbness, or weakness. PSYCHIATRIC: Denies anxiety or depression. All systems reviewed & are unremarkable except as noted in HPI and below PMFSH Past Medical History Medical History (Updated 07/05/20 @ 00:13 by Kushal Camargo MD) Charcot's joint of foot in type 2 diabetes mellitus Of the right foot Chickenpox COPD (chronic obstructive pulmonary disease) Coronary artery disease Depression Diabetes mellitus with insulin therapy Diabetic peripheral neuropathy Hypercholesterolemia Measles Mononucleosis Mumps Peripheral vascular disease due to secondary diabetes Surgical History Surgical History History of appendectomy History of section History of hysterectomy Due to cervical changes. History of tonsillectomy and adenoidectomy Status post cholecystectomy Stented coronary artery X1 Family History Family History Sibling Diabetes mellitus Mother Family history of Alzheimer's disease Family history of osteoporosis Arthritis Hypertension Cardiomegaly Atrial fibrillation Heart failure Mother No problems noted. Daughter Anxiety Father Esophagus cancer Other Depression Social History Social History Social History: She reports that she has smoked a pack of cigarettes per day. She started when she was 16 and stop smoking for fiber 6 years after the of her 2nd child. She then started smoking again and has smoked since that time. Primary care physician: Dr. Zay Martinez Smoking packs per day: 1 Smoking cigarettes per day: 20.0 Years smoked: 20 Smoking pack-years: 20.00 Smoking status: Never smoker Tobac
[2020-07-05 00:19] VITALS: BP 138/86; PULSE 78; RESP 18; TEMP 36.7; O2SAT 97
== END 2020-07-05 00:21 | disposition home or self-care (01) ==
PROVIDERS: Emergency Provider Emergency Medicine; PCP Emergency Medicine
DX: E11.65 Type 2 diabetes mellitus with hyperglycemia (principal); E11.42 Type 2 diabetes mellitus with diabetic polyneuropathy; Z79.4 Long term (current) use of insulin; S80.02XA Contusion of left knee, initial encounter; J44.9 Chronic obstructive pulmonary disease, unspecified; I25.10 Atherosclerotic heart disease of native coronary artery without angina pectoris; F32.9 Major depressive disorder, single episode, unspecified; E78.5 Hyperlipidemia, unspecified
CPT/HCPCS: 36415; 73562; 80053; 81001; 82010; 82948; 85025; 87086; 96374; 99284; J1815; J7030

== ENCOUNTER 2022-02-06 09:39 | Outpatient (NON) | payer MEDICARE, MEDICAID, SELFPAY ==
[2022-02-06 10:00] LABS: Hemoglobin A1C 7.6 % (<5.7)
[2022-02-06 10:01] LABS: Alanine Aminotransferase 18 U/L (6-35); Albumin Level 4.4 g/dL (3.5-5.1); Alkaline Phosphatase 117 U/L (38-126); Anion Gap 8 mmol/L (8-16); Aspartate Amino Transferase 22 U/L (14-36); Bilirubin,Total 0.3 mg/dL (0.2-1.3); Blood Urea Nitrogen 29 mg/dL (7-17); Calcium 9.2 mg/dL (8.4-10.2); Carbon Dioxide 23 mmol/L (22-30); Chloride 106 mmol/L (98-107); Cholesterol 323 mg/dL (0-200); Estimated Glomerular Filt Rate > 60; Glucose 249 mg/dL (65-110); HDL Direct 53 mg/dL; Potassium 3.9 mmol/L (3.4-5.0); Sodium 137 mmol/L (137-145); Triglycerides 289 mg/dL (<150)
[2022-02-06 10:14] LABS: Vitamin D 25 Hydroxy 21.6 ng/mL
[2022-02-06 10:15] LABS: LDL Cholesterol Direct 192 mg/dL
[2022-02-06 10:22] LABS: Free T4 Free Thyroxine 1.54 ng/mL (0.78-2.19)
[2022-02-06 14:07] LABS: Creatinine Urine 312.3 mg/dL
[2022-02-06 15:11] LABS: MALB Creatinine Ratio 43.2 mg/g (0-30); Microalbumin Urine Random 134.9 mg/L (0-16.7)
== END 2022-02-06 09:40 | disposition home or self-care (01) ==
PROVIDERS: PCP Emergency Medicine; Visit Provider Emergency Medicine
DX: S42.292D Other displaced fracture of upper end of left humerus, subsequent encounter for fracture with routine healing (principal); Z89.511 Acquired absence of right leg below knee; E11.65 Type 2 diabetes mellitus with hyperglycemia; E11.51 Type 2 diabetes mellitus with diabetic peripheral angiopathy without gangrene; Z79.4 Long term (current) use of insulin
CPT/HCPCS: 80053; 80061; 82043; 82306; 83036; 84436; 84439; 84443

== ENCOUNTER 2022-02-12 20:24 | Emergency (ER) | payer MEDICARE, MEDICAID, SELFPAY ==
[2022-02-12] VITALS (15 sets, daily range): BP systolic 100–136; BP diastolic 47–95; PULSE 84–101; RESP 9–24; TEMP 37; O2SAT 96–100
--- NOTE | ~2022-02-12 | CT_ITS ---
EXAMINATION: CT brain wo con INDICATION: Dizziness COMPARISON: 01/29/2020 TECHNIQUE: Standard unenhanced head CT. The dose-length product (DLP) was 681.00 mGy-cm. The mA was a djusted according to patient size. Iterative reconstruction technique was employed. FINDINGS: There is no acute intraparenchymal hemorrhage. No evidence of mass lesion. No evidence of a cute infarction. There is mild periventricular and subcortical hypodensity probably related to small vessel ischemic disease. There is mild prominence of the sulci and ventricles related to cerebral atr ophy. Intracranial calcified cerebral atherosclerosis is noted. There are no extra-axial collections. There is no mass effect or midline shift. The orbits and soft tissues are unremarkable. There is mil d mucosal thickening of the paranasal sinuses. IMPRESSION: 1. No acute intracranial abnormality. 2. Age related findings. Reviewed, dictated and finalized at location F.
--- NOTE | ~2022-02-12 | XR_ITS ---
EXAMINATION: XR chest 2V DATE: 02/12/2022 20:48 INDICATION: Dizziness TECHNIQUE: AP and lateral views of the chest are obtained. COMPARISON: 01/29/2020 FINDINGS: The lungs are free of acute opacities. No pleural effusion or pneumothorax. The cardiomedia stinal silhouette is normal. There is moderate thoracic spondylosis. Vertebroplasty changes noted in the lumbar spine. There is an age-indeterminate compression fracture in the lumbar spine. A cardiac m onitoring device projects in the left anterior chest wall. There is moderate osteoarthritis of the sh oulders. IMPRESSION: 1. No acute cardiopulmonary abnormality. Reviewed, dictated and finalized at location F.
--- NOTE | 2022-02-12 20:26 | ECG_ITS ---
Measurements Intervals [place] Rate: 80 P: 68 MI: 176 QRS: -34 QRSD: 93 T: 75 QT: 393 QTc: 455 Interpretive Statements SINUS RHYTHM LEFT AXIS DEVIATION VOLTAGE CRITERIA FOR LVH MINIMAL Q WAVES- HIGH LATERAL LEADS BORDERLINE ST-T WAVE ABNORMALITY- ANTEROLAT/HIGH LAT LEADS BASELINE ARTIFACT- I, II, AVL BORDERLINE ECG Electronically Signed On 02-13-2022 6:34:16 CDT by Mike Bernardo D.O.
[2022-02-12 20:45] LABS: Basophils Absolute Auto 0.1 K/mm3 (0.0-0.1); Basophils Percent Auto 0.6 % (0.2-1.2); Eosinophils Absolute Auto 0.1 K/mm3 (0-0.3); Eosinophils Percent Auto 0.9 % (0-4.4); Hematocrit 40.1 % (37.0-47.0); Hemoglobin 12.7 g/dL (12.0-15.0); Immature Granulocyte Absolute 0.04 K/mm3 (0.00-0.031); Immature Granulocyte Percent A 0.3 % (0-0.5); Lymphocytes Absolute Auto 2.71 K/mm3 (0.9-3.2); Lymphocytes Percent Auto 22.9 % (18.3-44.2); Mean Corpuscular HGB Conc 31.7 g/dl (32-36); Mean Corpuscular Hemoglobin 26.7 pg (26-34); Mean Corpuscular Volume 84.2 fl (80-100); Mean Platelet Volume 11.8 fl (7.4-10.4); Monocytes Absolute Auto 0.7 K/mm3 (0.1-0.6); Monocytes Percent Auto 6.1 % (2.6-8.5); Neutrophils Absolute Auto 8.2 K/mm3 (1.3-6.7); Neutrophils Percent Auto 69.2 % (45.5-73.1); Platelet Count Result 234 k/mm3 (150-375); Red Blood Count 4.76 M/mm3 (4.2-5.4); White Blood Count 11.9 K/mm3 (4.5-10.0)
[2022-02-12 21:20] LABS: Alanine Aminotransferase 18 U/L (6-35); Albumin Level 4.2 g/dL (3.5-5.1); Alkaline Phosphatase 120 U/L (38-126); Anion Gap 9 mmol/L (8-16); Aspartate Amino Transferase 20 U/L (14-36); Bilirubin,Total 0.4 mg/dL (0.2-1.3); Blood Urea Nitrogen 27 mg/dL (7-17); Calcium 8.9 mg/dL (8.4-10.2); Carbon Dioxide 25 mmol/L (22-30); Chloride 104 mmol/L (98-107); Estimated CRCL calculation 60 ml/min; Estimated Glomerular Filt Rate > 60; Glucose 233 mg/dL (65-110); Potassium 3.6 mmol/L (3.4-5.0); Sodium 138 mmol/L (137-145)
[2022-02-12] MEDS: SODIUM CHLORIDE 0.9% IV 1,000 ML 999 ML IV CONT (21:28)
[2022-02-12] MEDS: MECLIZINE HCL 25 MG TABLET PO (21:28)
[2022-02-12 22:13] LABS: Appearance Urine Clear (Clear); Bilirubin Urine 1+ (Negative); Color Urine Yellow (Yellow); Glucose Urine UA 3+ mg/dL (Negative); Ketones Urine 1+ mg/dL (Negative); Leukocyte Esterase Ur 1+ LEU/UL (Negative); Nitrate Urine Negative (Negative); Protein Urine 1+ mg/dL (Negative); Specific Grav Ur 1.025 (1.001-1.035); Urobilinogen Urine 0.2 mg/dL (<2.0)
[2022-02-12 22:17] LABS: Bacteria Urine Trace /hpf; Squamous Epithelial Cell Urine Occasional /hpf (Few); WBC Urine >75 /hpf
[2022-02-12 22:18] LABS: Add Urine Microscopic? YES; Blood Urine Trace-Intact (Negative)
--- NOTE | 2022-02-12 22:32 | ED.DIZZY ---
HPI - Dizziness General Chief Complaint: Dizziness Stated Complaint: DIZZY, LOW BP Time Seen by Provider: 02/12/22 20:31 Source: patient Mode of arrival: EMS Limitations: no limitations History of Present Illness HPI Narrative: 56-year-old with a history of hypertension, diabetes insulin requiring, peripheral vascular disease s/p below the knee amputation of the right here with the complaints of not feeling well since. Patient states that she is feels dizzy she states the whole room was spinning. She denied any chest pain, shortness of breath or fever. She is presently on Macrobid for UTI MD elicited complaint: dizziness Onset (ago): hour(s) (8) Timing: gradual onset Severity: moderate Description: room spinning Exacerbating factors: nothing Relieving factors: remaining still Associated symptoms: denies other symptoms Related Data Home Medications Medication Instructions Recorded Confirmed aspirin 81 mg tablet 81 mg PO DAILY 07/24/19 02/03/22 clopidogrel 75 mg tablet 75 mg PO DAILY 11/27/20 02/03/22 ascorbic acid (vitamin C) 500 mg 500 mg PO DAILY 01/06/21 02/03/22 tablet calcium carbonate 500 mg calcium See Rx Instructions .Route .COMPLEX 01/06/21 02/03/22 (1,250 mg) tablet cholecalciferol (vitamin D3) 25 See Rx Instructions PO DAILY 01/06/21 02/03/22 mcg (1,000 unit) capsule diclofenac sodium 1 % topical gel 4 g topical QID 01/06/21 02/03/22 (Voltaren) ferrous sulfate 325 mg (65 mg 325 mg PO DAILY 01/06/21 02/03/22 iron) tablet insulin glargine 100 unit/mL (3 See Rx Instructions .Route .COMPLEX 01/06/21 02/03/22 mL) subcutaneous pen (Basaglar KwikPen U-100 Insulin) insulin lispro 100 unit/mL See Rx Instructions .Route .COMPLEX 01/06/21 02/03/22 subcutaneous pen melatonin 5 mg chewable tablet 5 mg PO QHS 01/06/21 02/03/22 trazodone 50 mg tablet 50 mg PO QHS PRN 01/06/21 02/03/22 Allergies Allergy/AdvReac Type Severity Reaction Status Date / Time No Known Allergies Allergy Verified 02/03/22 12:37 Review of Systems Review of Systems: All systems reviewed & are unremarkable except as noted in HPI and below Constitutional: Constitutional: Reports no additional constitutional complaints Eyes: Eyes: Reports no additional eye complaints ENT: Reports system reviewed and no additional complaints, except as documented Cardiovascular: Cardiovascular: Reports no additional cardiovascular complaints Respiratory: Respiratory: Reports no additional respiratory complaints Gastrointestinal: Gastrointestinal: Reports no additional gastrointestinal complaints Musculoskeletal: Musculoskeletal: Reports no additional musculoskeletal complaints Neurologic: Reports as per HPI Psychiatric: Psychiatric: Reports no additional psychiatric complaints [facility] Past Medical History Medical History Anxiety Charcot's joint of foot in type 2 diabetes mellitus Of the right foot Chickenpox COPD (chronic obstructive pulmonary disease) Coronary artery disease Depression Diabetes mellitus with insulin therapy Diabetic peripheral neuropathy Fracture of proximal end of left humerus Hypercholesterolemia Left foot pain Measles Metacarpal bone fracture Mononucleosis Mumps Peripheral vascular disease due to secondary diabetes Surgical History Surgical History History of appendectomy History of section History of hysterectomy Due to cervical changes. History of tonsillectomy and adenoidectomy Hx of BKA Right 11/19/20 at [facility] Status post cholecystectomy Stented coronary artery X1 Family History Family History Sibling Diabetes mellitus Mother Family history of Alzheimer's disease Family history of osteoporosis Arthritis Hypertension Cardiomegaly Atrial fibrillation Heart failure Mother No problems noted. [place]
[2022-02-13 01:10] VITALS: RESP 18; O2SAT 97
== END 2022-02-13 01:10 | disposition home or self-care (01) ==
PROVIDERS: Emergency Provider Family Medicine; PCP Emergency Medicine
DX: N39.0 Urinary tract infection, site not specified (principal); R42 Dizziness and giddiness; I10 Essential (primary) hypertension; I25.10 Atherosclerotic heart disease of native coronary artery without angina pectoris; E11.42 Type 2 diabetes mellitus with diabetic polyneuropathy; E11.51 Type 2 diabetes mellitus with diabetic peripheral angiopathy without gangrene; I73.9 Peripheral vascular disease, unspecified; E11.610 Type 2 diabetes mellitus with diabetic neuropathic arthropathy; E78.00 Pure hypercholesterolemia, unspecified; F41.9 Anxiety disorder, unspecified; F32.A Depression, unspecified; Z89.511 Acquired absence of right leg below knee; Z95.5 Presence of coronary angioplasty implant and graft; F17.210 Nicotine dependence, cigarettes, uncomplicated; Z79.82 Long term (current) use of aspirin; Z79.4 Long term (current) use of insulin; R94.31 Abnormal electrocardiogram [ECG] [EKG]
CPT/HCPCS: 36415; 70450; 71046; 80053; 81001; 85025; 87086; 87088; 93005; 96360; 99284; A9270; J7030

== ENCOUNTER 2022-03-06 15:21 | Outpatient (NON) | payer MEDICARE, MEDICAID, SELFPAY ==
[2022-03-06 15:41] LABS: Appearance Urine Cloudy (Clear); Bilirubin Urine Negative (Negative); Blood Urine Trace-lysed (Negative); Color Urine Yellow (Yellow); Glucose Urine UA 3+ mg/dL (Negative); Ketones Urine Negative (Negative); Leukocyte Esterase Ur 1+ LEU/UL (Negative); Nitrate Urine Negative (Negative); Protein Urine Negative (Negative); Urobilinogen Urine 0.2 mg/dL (<2.0); pH Urine 5.5 (5.0-9.0)
[2022-03-06 15:43] LABS: Bacteria Urine Trace /hpf; Squamous Epithelial Cell Urine Occasional /hpf (Few); WBC Clumps Urine Present /HPF; WBC Urine >75 /hpf
[2022-03-06 15:44] LABS: Add Urine Microscopic? YES
== END 2022-03-06 15:22 | disposition home or self-care (01) ==
PROVIDERS: PCP Emergency Medicine; Visit Provider Emergency Medicine
DX: N39.0 Urinary tract infection, site not specified (principal)
CPT/HCPCS: 81001; 87077; 87086; 87186

== ENCOUNTER 2022-03-09 21:42 | Emergency (ER) | payer MEDICARE, MEDICAID, SELFPAY ==
[2022-03-09 21:57] VITALS: BP 108/54; PULSE 83; RESP 18; TEMP 36.7; O2SAT 98
--- NOTE | 2022-03-09 23:46 | ED.FEMALEGU ---
HPI - Female Genitourinary General Chief complaint: Urogenital-Female Stated complaint: dysuria, weakness Time Seen by Provider: 03/09/22 23:19 Source: patient, EMS, RN notes reviewed and old records reviewed Mode of arrival: EMS Limitations: no limitations History of Present Illness HPI Narrative: This is 56 year old female who presents for evaluation of a UTI. She reports burning with urination. She reports burning at start of stream and at the end of her stream. She states these symptoms have been present for at least 1 month. She also reports intermittent right flank pain. She denies nausea, vomiting, or fever. She states her home health nurse sent her urine off a few days ago but she is unsure of the results. She is unsure of when she last took antibiotics for a UTI. Related Data Home Medications Medication Instructions Recorded Confirmed aspirin 81 mg tablet 81 mg PO DAILY 07/24/19 02/03/22 ascorbic acid (vitamin C) 500 mg 500 mg PO DAILY 01/06/21 02/03/22 tablet calcium carbonate 500 mg calcium See Rx Instructions .Route .COMPLEX 01/06/21 02/03/22 (1,250 mg) tablet cholecalciferol (vitamin D3) 25 See Rx Instructions PO DAILY 01/06/21 02/03/22 mcg (1,000 unit) capsule diclofenac sodium 1 % topical gel 4 g topical QID 01/06/21 02/03/22 (Voltaren) ferrous sulfate 325 mg (65 mg 325 mg PO DAILY 01/06/21 02/03/22 iron) tablet insulin glargine 100 unit/mL (3 See Rx Instructions .Route .COMPLEX 01/06/21 02/03/22 mL) subcutaneous pen (Basaglar KwikPen U-100 Insulin) insulin lispro 100 unit/mL See Rx Instructions .Route .COMPLEX 01/06/21 02/03/22 subcutaneous pen melatonin 5 mg chewable tablet 5 mg PO QHS 01/06/21 02/03/22 trazodone 50 mg tablet 50 mg PO QHS PRN 01/06/21 02/03/22 Allergies Allergy/AdvReac Type Severity Reaction Status Date / Time No Known Allergies Allergy Verified 03/09/22 22:02 Review of Systems Review of Systems: All systems reviewed & are unremarkable except as noted in HPI and below PMFSH Past Medical History Medical History Anxiety Charcot's joint of foot in type 2 diabetes mellitus Of the right foot Chickenpox COPD (chronic obstructive pulmonary disease) Coronary artery disease Depression Diabetes mellitus with insulin therapy Diabetic peripheral neuropathy Fracture of proximal end of left humerus Hypercholesterolemia Left foot pain Measles Metacarpal bone fracture Mononucleosis Mumps Peripheral vascular disease due to secondary diabetes Surgical History Surgical History History of appendectomy History of section History of hysterectomy Due to cervical changes. History of tonsillectomy and adenoidectomy Hx of BKA Right 11/19/20 at [facility] Status post cholecystectomy Stented coronary artery X1 Family History Family History Sibling Diabetes mellitus Mother Family history of Alzheimer's disease Family history of osteoporosis Arthritis Hypertension Cardiomegaly Atrial fibrillation Heart failure Mother No problems noted. Daughter Anxiety Father Esophagus cancer Other Depression Social History Social History Social History: She reports that she has smoked a pack of cigarettes per day. She started when she was 16 and stop smoking for fiber 6 years after the of her 2nd child. She then started smoking again and has smoked since that time. Primary care physician: Dr. Zay Martinez Smoking packs per day: 1 Smoking cigarettes per day: 20.0 Years smoked: 20 Smoking pack-years: 20.00 Smoking status: Current every day smoker Tobacco type: cigarettes Second hand tobacco smoke exposure: No Alcohol intake: former Drinks per week: 1 Substance use: never Additional
[2022-03-09 23:48] VITALS: O2SAT 99
[2022-03-09 23:55] VITALS: BP 124/66; PULSE 75; RESP 16; O2SAT 98
[2022-03-10] VITALS (9 sets, daily range): BP systolic 106–120; BP diastolic 61–93; PULSE 96; RESP 16; O2SAT 96–100
[2022-03-10 00:13] LABS: Basophils Absolute Auto 0.1 K/mm3 (0.0-0.1); Basophils Percent Auto 0.6 % (0.2-1.2); Eosinophils Absolute Auto 0.1 K/mm3 (0-0.3); Eosinophils Percent Auto 1.2 % (0-4.4); Hematocrit 40.9 % (37.0-47.0); Hemoglobin 12.7 g/dL (12.0-15.0); Immature Granulocyte Absolute 0.04 K/mm3 (0.00-0.031); Immature Granulocyte Percent A 0.4 % (0-0.5); Lymphocytes Absolute Auto 3.34 K/mm3 (0.9-3.2); Lymphocytes Percent Auto 33.1 % (18.3-44.2); Mean Corpuscular HGB Conc 31.1 g/dl (32-36); Mean Corpuscular Hemoglobin 26.3 pg (26-34); Mean Corpuscular Volume 84.9 fl (80-100); Mean Platelet Volume 11.5 fl (7.4-10.4); Monocytes Absolute Auto 0.6 K/mm3 (0.1-0.6); Monocytes Percent Auto 5.5 % (2.6-8.5); Neutrophils Percent Auto 59.2 % (45.5-73.1); Platelet Count Result 220 k/mm3 (150-375); Red Blood Count 4.82 M/mm3 (4.2-5.4); White Blood Count 10.1 K/mm3 (4.5-10.0)
[2022-03-10 00:17] LABS: Alanine Aminotransferase 20 U/L (6-35); Albumin Level 4.2 g/dL (3.5-5.1); Alkaline Phosphatase 108 U/L (38-126); Anion Gap 11 mmol/L (8-16); Aspartate Amino Transferase 20 U/L (14-36); Bilirubin,Total 0.3 mg/dL (0.2-1.3); Blood Urea Nitrogen 21 mg/dL (7-17); Calcium 9.5 mg/dL (8.4-10.2); Carbon Dioxide 23 mmol/L (22-30); Chloride 105 mmol/L (98-107); Estimated CRCL calculation 81 ml/min; Estimated Glomerular Filt Rate > 60; Glucose 176 mg/dL (65-110); Potassium 4.2 mmol/L (3.4-5.0); Sodium 139 mmol/L (137-145)
[2022-03-10] MEDS: NITROFURANTOIN MONOHYD MACROCR 100 MG CAP PO (01:27)
--- NOTE | 2022-03-10 01:30 | PC.NURSE ---
Pt states she has no ride home. PT has no money for cab. rural mail contractor attempted to reach emergency contacts. Pts son Jass did not naswer. Pts sons girlfriend answered who was listed as daughter and states she will get a hold of the son to let him know.
--- NOTE | 2022-03-10 01:35 | PC.NURSE ---
PT STATES THAT SHE HAS NO WAY HOME. CALLED PT'S CONTACTS LISTED IN HER CHART. HER SON ADRI MEJIA DID NOT ANSWER AT [phone] AT APPROX [id number]. NEXT CALLED PT'S DAUGHTER AT [phone], SHE SAID THAT SHE WAS ACTUALLY THE GIRLFRIEND OF THE SON, BUT SHE WOULD LET HIM KNOW AT APPROX [id number].
[2022-03-10] MEDS: ACETAMINOPHEN 500 MG TABLET 1000 MG PO (02:08)
--- NOTE | 2022-03-10 02:15 | PC.NURSE ---
pts son incolasa states he is on his way.
== END 2022-03-10 02:40 | disposition home or self-care (01) ==
PROVIDERS: Emergency Provider General Practice; PCP Emergency Medicine
DX: N39.0 Urinary tract infection, site not specified (principal); E11.610 Type 2 diabetes mellitus with diabetic neuropathic arthropathy; E11.42 Type 2 diabetes mellitus with diabetic polyneuropathy; E11.51 Type 2 diabetes mellitus with diabetic peripheral angiopathy without gangrene; I73.9 Peripheral vascular disease, unspecified; E78.00 Pure hypercholesterolemia, unspecified; J44.9 Chronic obstructive pulmonary disease, unspecified; I25.10 Atherosclerotic heart disease of native coronary artery without angina pectoris; Z89.511 Acquired absence of right leg below knee; Z95.5 Presence of coronary angioplasty implant and graft; Z79.82 Long term (current) use of aspirin; Z79.4 Long term (current) use of insulin; F17.210 Nicotine dependence, cigarettes, uncomplicated
CPT/HCPCS: 36415; 80053; 85025; 99283; A9270

== ENCOUNTER 2022-03-25 03:29 | Emergency (ER) | payer MEDICARE, MEDICAID, SELFPAY ==
--- NOTE | ~2022-03-25 | XR_ITS ---
EXAMINATION: XR chest 2V DATE: 03/25/2022 04:18 INDICATION: Left chest pain. TECHNIQUE: Frontal and lateral views of the chest were obtained. COMPARISON: Chest 2 views 02/12/2022, CT abdomen and pelvis 03/17/2020 FINDINGS: There is no pneumonia, pleural effusion, or pneumothorax. The heart size is normal. There i s an electronic implant in left anterior chest wall. IMPRESSION: 1. No acute cardiopulmonary disease. Reviewed, dictated and finalized at location A.
--- NOTE | 2022-03-25 03:31 | ECG_ITS ---
Measurements Intervals [place] Rate: 96 P: 72 [place]: 176 QRS: -44 QRSD: 92 T: 81 QT: 359 QTc: 454 Interpretive Statements SINUS RHYTHM LEFT AXIS DEVIATION [QRS AXIS < -30] MINIMAL VOLTAGE CRITERIA FOR LVH, CONSIDER NORMAL VARIANT [MEETS CRITERIA IN ONE OF: R(aVL), S(V1), R(V5), R(V5/V6)+S(V1)] bORDERLINE st CHANGES INFEROLATERALLY POSSIBLE LATERAL MYOCARDIAL INFARCTION , OF INDETERMINATE AGE [30 ms Q WAVE IN I/aVL/V5/V6] COMPARED TO ECG 02/12/2022 21:35:24 NO SIGNIFICANT CHANGES Electronically Signed On 03-25-2022 18:16:10 CDT by Florecita Campbell M.D.
[2022-03-25 03:35] VITALS: BP 157/83; PULSE 100; RESP 13; TEMP 36.6; O2SAT 97
[2022-03-25 03:41] VITALS: PULSE 99
--- NOTE | 2022-03-25 03:51 | ED.CHESTPAIN ---
HPI - Chest Pain General Chief Complaint: Chest Pain Stated Complaint: CHEST PAIN Time Seen by Provider: 03/25/22 03:31 History of Present Illness HPI narrative: 56-year-old female presenting to the emergency department for evaluation of left lower chest wall pain. Patient states that the pain has been constant since yesterday morning. Patient states pain is worsened with palpation. Patient denies any associated shortness of breath. Patient denies any falls or injuries. Patient denies any radiation of the pain. Patient does have a history of atrial fibrillation and does have a loop recorder. Related Data Home Medications Medication Instructions Recorded Confirmed aspirin 81 mg tablet 81 mg PO DAILY 07/24/19 02/03/22 ascorbic acid (vitamin C) 500 mg 500 mg PO DAILY 01/06/21 02/03/22 tablet calcium carbonate 500 mg calcium See Rx Instructions .Route .COMPLEX 01/06/21 02/03/22 (1,250 mg) tablet cholecalciferol (vitamin D3) 25 See Rx Instructions PO DAILY 01/06/21 02/03/22 mcg (1,000 unit) capsule diclofenac sodium 1 % topical gel 4 g topical QID 01/06/21 02/03/22 (Voltaren) ferrous sulfate 325 mg (65 mg 325 mg PO DAILY 01/06/21 02/03/22 iron) tablet insulin glargine 100 unit/mL (3 See Rx Instructions .Route .COMPLEX 01/06/21 02/03/22 mL) subcutaneous pen (Basaglar KwikPen U-100 Insulin) insulin lispro 100 unit/mL See Rx Instructions .Route .COMPLEX 01/06/21 02/03/22 subcutaneous pen melatonin 5 mg chewable tablet 5 mg PO QHS 01/06/21 02/03/22 trazodone 50 mg tablet 50 mg PO QHS PRN 01/06/21 02/03/22 Allergies Allergy/AdvReac Type Severity Reaction Status Date / Time No Known Allergies Allergy Verified 03/09/22 22:02 Review of Systems Review of Systems: CONSTITUTIONAL: Denies fever, chills, or sweats. EYES: Denies visual changes, redness, or discharge. ENT: Denies rhinorrhea, congestion, sore throat, or otalgia. CARDIOVASCULAR: See HPI RESPIRATORY: Denies cough or dyspnea. GASTROINTESTINAL: Denies abdominal pain, nausea, vomiting, or diarrhea. GENITOURINARY: Denies dysuria or hematuria. SKIN: Denies rash or itching. MUSCULOSKELETAL: Denies back pain, joint pain, or myalgia. NEUROLOGIC: Denies headache, numbness, or weakness. [facility] Past Medical History Medical History Anxiety Charcot's joint of foot in type 2 diabetes mellitus Of the right foot Chickenpox COPD (chronic obstructive pulmonary disease) Coronary artery disease Depression Diabetes mellitus with insulin therapy Diabetic peripheral neuropathy Fracture of proximal end of left humerus Hypercholesterolemia Left foot pain Measles Metacarpal bone fracture Mononucleosis Mumps Peripheral vascular disease due to secondary diabetes Surgical History Surgical History History of appendectomy History of section History of hysterectomy Due to cervical changes. History of tonsillectomy and adenoidectomy Hx of BKA Right 11/19/20 at [facility] Status post cholecystectomy Stented coronary artery X1 Family History Family History Sibling Diabetes mellitus Mother Family history of Alzheimer's disease Family history of osteoporosis Arthritis Hypertension Cardiomegaly Atrial fibrillation Heart failure Mother No problems noted. Daughter Anxiety Father Esophagus cancer Other Depression Social History Social History Social History: She reports that she has smoked a pack of cigarettes per day. She started when she was 16 and stop smoking for fiber 6 years after the of her 2nd child. She then started smoking again and has smoked since that time. Primary care physician: Dr. Zay Martinez Smoking packs per day: 1 Smoking cigarettes per day: 20.0 Years smoked: 20 Smok
[2022-03-25 04:06] LABS: Basophils Absolute Auto 0.1 K/mm3 (0.0-0.1); Basophils Percent Auto 0.8 % (0.2-1.2); Eosinophils Absolute Auto 0.1 K/mm3 (0-0.3); Eosinophils Percent Auto 1.2 % (0-4.4); Hematocrit 41.6 % (37.0-47.0); Immature Granulocyte Absolute 0.04 K/mm3 (0.00-0.031); Immature Granulocyte Percent A 0.4 % (0-0.5); Lymphocytes Absolute Auto 2.53 K/mm3 (0.9-3.2); Lymphocytes Percent Auto 28.3 % (18.3-44.2); Mean Corpuscular HGB Conc 31.3 g/dl (32-36); Mean Corpuscular Hemoglobin 26.5 pg (26-34); Mean Corpuscular Volume 84.9 fl (80-100); Mean Platelet Volume 11.8 fl (7.4-10.4); Monocytes Absolute Auto 0.5 K/mm3 (0.1-0.6); Monocytes Percent Auto 5.1 % (2.6-8.5); Neutrophils Absolute Auto 5.7 K/mm3 (1.3-6.7); Neutrophils Percent Auto 64.2 % (45.5-73.1); Platelet Count Result 194 k/mm3 (150-375); Red Cell Distribution Width 14.1 % (11.5-14.5)
[2022-03-25 04:22] LABS: Alanine Aminotransferase 21 U/L (6-35); Albumin Level 4.5 g/dL (3.5-5.1); Alkaline Phosphatase 122 U/L (38-126); Anion Gap 12 mmol/L (8-16); Aspartate Amino Transferase 25 U/L (14-36); Bilirubin,Total 0.5 mg/dL (0.2-1.3); Blood Urea Nitrogen 24 mg/dL (7-17); Calcium 8.9 mg/dL (8.4-10.2); Carbon Dioxide 21 mmol/L (22-30); Chloride 104 mmol/L (98-107); Estimated CRCL calculation 89 ml/min; Estimated Glomerular Filt Rate > 60; Glucose 339 mg/dL (65-110); Potassium 4.7 mmol/L (3.4-5.0); Sodium 137 mmol/L (137-145)
[2022-03-25 04:30] LABS: Troponin I 0.017 ng/mL (0.000-0.034)
[2022-03-25] MEDS: MORPHINE SULFATE (*CRX) 2 MG/ML INJ IV PUSH (06:16)
[2022-03-25 06:17] VITALS: BP 161/80; PULSE 89; RESP 12; O2SAT 100
[2022-03-25 07:00] VITALS: BP 123/74; PULSE 60; RESP 19; O2SAT 97
--- NOTE | 2022-05-02 01:08 | ED.GENADULT ---
HPI - General Adult General Chief complaint: Chest Pain Stated complaint: CHEST PAIN Time Seen by Provider: 03/25/22 03:31 History of Present Illness HPI narrative: Patient is a 56-year-old female with a complex medical history including diabetes, Charcot foot, right BKA, left hip fracture status post replacement who currently resides in a assisted living facility here for evaluation of left hip pain. Patient states the pain came on during a turn today, states that the staff pushed on her hip to address her wound and she developed a sharp pain ever since. She did not have any known falls. She was given 2 doses of scheduled hydrocodone without relief of her pain. Denies any numbness or tingling in her leg. No fevers, chills, nausea, vomiting, diarrhea. No back pain. Patient was in her usual state of health this morning, denied any pain at the site prior to onset. Related Data Home Medications Medication Instructions Recorded Confirmed cholecalciferol (vitamin D3) 50,000 units PO WEEKLY 03/30/22 03/30/22 insulin glargine 100 unit/mL (3 20 unit subcut BID 03/30/22 03/30/22 mL) subcutaneous pen (Basaglar KwikPen U-100 Insulin) insulin lispro 100 unit/mL 10 unit subcut TID 03/30/22 03/30/22 subcutaneous solution (Admelog U-100 Insulin lispro) semaglutide 0.25 mg or 0.5 mg (2 1 mg subcut WEEKLY 03/30/22 03/30/22 mg/1.5 mL) subcutaneous pen injector (Ozempic) Allergies Allergy/AdvReac Type Severity Reaction Status Date / Time propofol Allergy Agitated Verified 05/02/22 01:11 Review of Systems Review of Systems: Gen: Denies fevers or chills Eyes: Denies eye pain or visual change ENT: Denies congestion Respiratory: Denies shortness of breath or cough CV: Denies chest pain or palpitations GI: Denies abdominal pain nausea, emesis or diarrhea : denies burning, urgency, frequency or hematuria Musculoskeletal: Reports left hip pain. Neuro: Denies numbness, tingling, weakness or focal weakness Skin: Denies rash Except as documented, all other systems reviewed and negative PMFSH Past Medical History Medical History Anxiety Charcot's joint of foot in type 2 diabetes mellitus Of the right foot Chickenpox COPD (chronic obstructive pulmonary disease) Coronary artery disease Depression Diabetes mellitus with insulin therapy Diabetic peripheral neuropathy Fracture of proximal end of left humerus Hypercholesterolemia Left foot pain Measles Metacarpal bone fracture Mononucleosis Mumps Peripheral vascular disease due to secondary diabetes Surgical History Surgical History History of appendectomy History of section History of hysterectomy Due to cervical changes. History of tonsillectomy and adenoidectomy Hx of BKA Right 11/19/20 at [facility] Status post cholecystectomy Stented coronary artery X1 Family History Family History Sibling Diabetes mellitus Mother Family history of Alzheimer's disease Family history of osteoporosis Arthritis Hypertension Cardiomegaly Atrial fibrillation Heart failure Mother No problems noted. Daughter Anxiety Father Esophagus cancer Other Depression Social History Social History Social History: She reports that she has smoked a pack of cigarettes per day. She started when she was 16 and stop smoking for fiber 6 years after the of her 2nd child. She then started smoking again and has smoked since that time. Primary care physician: Dr. Zay Martinez Smoking packs per day: 1 Smoking cigarettes per day: 20.0 Years smoked: 20 Smoking pack-years: 20.00 Smoking status: Former smoker Tobacco type: cigarettes Second hand tobacco smoke exposure: No Alcohol intake: f
== END 2022-03-25 07:00 | disposition home or self-care (01) ==
PROVIDERS: Emergency Provider Emergency Medicine; PCP Emergency Medicine
DX: R07.89 Other chest pain (principal); F17.210 Nicotine dependence, cigarettes, uncomplicated; F41.9 Anxiety disorder, unspecified; J44.9 Chronic obstructive pulmonary disease, unspecified; F32.9 Major depressive disorder, single episode, unspecified; E11.9 Type 2 diabetes mellitus without complications; Z79.4 Long term (current) use of insulin; E78.5 Hyperlipidemia, unspecified
CPT/HCPCS: 36415; 71046; 80053; 84484; 85025; 93005; 96365; 96375; 99285; J0131; J2270

== ENCOUNTER 2022-03-27 00:08 | Emergency (ER) | payer MEDICARE, MEDICAID, SELFPAY ==
[2022-03-27 00:06] VITALS: BP 150/72; PULSE 99; RESP 22; TEMP 37; O2SAT 100
[2022-03-27 00:54] LABS: Basophils Absolute Auto 0.1 K/mm3 (0.0-0.1); Basophils Percent Auto 0.7 % (0.2-1.2); Eosinophils Absolute Auto 0.1 K/mm3 (0-0.3); Eosinophils Percent Auto 1.3 % (0-4.4); Hematocrit 40.6 % (37.0-47.0); Hemoglobin 12.9 g/dL (12.0-15.0); Immature Granulocyte Absolute 0.02 K/mm3 (0.00-0.031); Immature Granulocyte Percent A 0.2 % (0-0.5); Lymphocytes Percent Auto 28.9 % (18.3-44.2); Mean Corpuscular HGB Conc 31.8 g/dl (32-36); Mean Corpuscular Hemoglobin 26.8 pg (26-34); Mean Corpuscular Volume 84.2 fl (80-100); Mean Platelet Volume 11.3 fl (7.4-10.4); Monocytes Absolute Auto 0.5 K/mm3 (0.1-0.6); Monocytes Percent Auto 5.9 % (2.6-8.5); Neutrophils Absolute Auto 5.2 K/mm3 (1.3-6.7); Platelet Count Result 190 k/mm3 (150-375); Red Blood Count 4.82 M/mm3 (4.2-5.4); Red Cell Distribution Width 13.9 % (11.5-14.5); White Blood Count 8.3 K/mm3 (4.5-10.0)
[2022-03-27 00:55] LABS: Appearance Urine Slightly Cloudy (Clear); Bilirubin Urine Negative (Negative); Color Urine Yellow (Yellow); Glucose Urine UA 3+ mg/dL (Negative); Ketones Urine Negative (Negative); Leukocyte Esterase Ur 1+ LEU/UL (Negative); Nitrate Urine Positive (Negative); Protein Urine Negative (Negative); Urobilinogen Urine 0.2 mg/dL (<2.0); pH Urine 5.5 (5.0-9.0)
--- NOTE | 2022-03-27 00:56 | ED.EXTPRO ---
HPI - Extremity Problem General Chief complaint: Extremity Problem,Nontraumatic Stated complaint: LOWER LEG REDNESS/SWELLING, HX DVT Time Seen by Provider: 03/27/22 00:22 History of Present Illness HPI Narrative: 56-year-old female presents emergency room secondary to pain and some redness to her left lower extremity. She is not sure how long this has been going on for. She is already had an amputation of her right lower extremity secondary to complications of an infection from diabetes. She is also been treated with repeated doses of antibiotics over the last several month secondary to recurrent urinary tract infections. She had a fall and had a fracture to her left shoulder but that was approximately 4 months ago. She is also had a hip fracture within the last several months. She denies any associated chills or fevers. Related Data Home Medications Medication Instructions Recorded Confirmed aspirin 81 mg tablet 81 mg PO DAILY 07/24/19 02/03/22 ascorbic acid (vitamin C) 500 mg 500 mg PO DAILY 01/06/21 02/03/22 tablet calcium carbonate 500 mg calcium See Rx Instructions .Route .COMPLEX 01/06/21 02/03/22 (1,250 mg) tablet cholecalciferol (vitamin D3) 25 See Rx Instructions PO DAILY 01/06/21 02/03/22 mcg (1,000 unit) capsule diclofenac sodium 1 % topical gel 4 g topical QID 01/06/21 02/03/22 (Voltaren) ferrous sulfate 325 mg (65 mg 325 mg PO DAILY 01/06/21 02/03/22 iron) tablet insulin glargine 100 unit/mL (3 See Rx Instructions .Route .COMPLEX 01/06/21 02/03/22 mL) subcutaneous pen (Basaglar KwikPen U-100 Insulin) insulin lispro 100 unit/mL See Rx Instructions .Route .COMPLEX 01/06/21 02/03/22 subcutaneous pen melatonin 5 mg chewable tablet 5 mg PO QHS 01/06/21 02/03/22 trazodone 50 mg tablet 50 mg PO QHS PRN 01/06/21 02/03/22 Allergies Allergy/AdvReac Type Severity Reaction Status Date / Time No Known Allergies Allergy Verified 03/09/22 22:02 Review of Systems Review of Systems: CONSTITUTIONAL: Denies fever, chills, or sweats. EYES: Denies visual changes, redness, or discharge. ENT: Denies rhinorrhea, congestion, sore throat, or otalgia. CARDIOVASCULAR: Denies chest pain, palpitations, or edema. RESPIRATORY: Denies cough or dyspnea. GASTROINTESTINAL: Denies abdominal pain, nausea, vomiting, or diarrhea. GENITOURINARY: Denies dysuria or hematuria. SKIN: Painful rash to the left lower extremity MUSCULOSKELETAL: Some ongoing pain to her left shoulder secondary to fracture. NEUROLOGIC: Denies headache, numbness, or weakness. PSYCHIATRIC: Denies anxiety or depression. [facility] Past Medical History Medical History Anxiety Charcot's joint of foot in type 2 diabetes mellitus Of the right foot Chickenpox COPD (chronic obstructive pulmonary disease) Coronary artery disease Depression Diabetes mellitus with insulin therapy Diabetic peripheral neuropathy Fracture of proximal end of left humerus Hypercholesterolemia Left foot pain Measles Metacarpal bone fracture Mononucleosis Mumps Peripheral vascular disease due to secondary diabetes Surgical History Surgical History History of appendectomy History of section History of hysterectomy Due to cervical changes. History of tonsillectomy and adenoidectomy Hx of BKA Right 11/19/20 at [facility] Status post cholecystectomy Stented coronary artery X1 Family History Family History Sibling Diabetes mellitus Mother Family history of Alzheimer's disease Family history of osteoporosis Arthritis Hypertension Cardiomegaly Atrial fibrillation Heart failure Mother No problems noted. Daughter Anxiety Father Esophagus cancer Other Depression Social History Social History Social History: She repor
[2022-03-27 00:59] LABS: Bacteria Urine 1+ /hpf; Mucus Urine Rare /lpf; Squamous Epithelial Cell Urine Rare /hpf (Few); WBC Clumps Urine Present /HPF; WBC Urine 51-75 /hpf
[2022-03-27 01:00] LABS: Add Urine Microscopic? YES; Blood Urine Trace-Intact (Negative)
[2022-03-27 01:04] LABS: Alanine Aminotransferase 24 U/L (6-35); Albumin Level 4.7 g/dL (3.5-5.1); Alkaline Phosphatase 114 U/L (38-126); Anion Gap 12 mmol/L (8-16); Aspartate Amino Transferase 27 U/L (14-36); Bilirubin,Total 0.5 mg/dL (0.2-1.3); Blood Urea Nitrogen 24 mg/dL (7-17); Calcium 9.5 mg/dL (8.4-10.2); Carbon Dioxide 21 mmol/L (22-30); Chloride 104 mmol/L (98-107); Estimated CRCL calculation 73 ml/min; Estimated Glomerular Filt Rate > 60; Glucose 260 mg/dL (65-110); Potassium 4.3 mmol/L (3.4-5.0); Sodium 137 mmol/L (137-145)
[2022-03-27 01:37] VITALS: BP 136/86; PULSE 95; RESP 20; O2SAT 98
--- NOTE | 2022-03-27 01:56 | PC.NURSE ---
This RN and Cathy NUNES went to dc pt. Pt states she has no ride home. RN discussed options of transport back to home. Pt states she can not afford a taxi, pt does not meet medical criteria for transport home, pt states she can not afford and ambulance home and did not want us to contact son originally. After discussing options she states we can contact son. Pts son did not answer but pts girlfriend answered and said that they will be here in two hours. PT aware and assisted to waiting room.
== END 2022-03-27 02:13 | disposition home or self-care (01) ==
PROVIDERS: Emergency Provider Emergency Medicine; PCP Emergency Medicine
DX: L03.116 Cellulitis of left lower limb (principal); N39.0 Urinary tract infection, site not specified; E11.65 Type 2 diabetes mellitus with hyperglycemia; E11.610 Type 2 diabetes mellitus with diabetic neuropathic arthropathy; E11.42 Type 2 diabetes mellitus with diabetic polyneuropathy; E11.51 Type 2 diabetes mellitus with diabetic peripheral angiopathy without gangrene; I73.9 Peripheral vascular disease, unspecified; I25.10 Atherosclerotic heart disease of native coronary artery without angina pectoris; E78.00 Pure hypercholesterolemia, unspecified; F32.A Depression, unspecified; F41.9 Anxiety disorder, unspecified; F17.210 Nicotine dependence, cigarettes, uncomplicated; Z95.5 Presence of coronary angioplasty implant and graft; Z89.511 Acquired absence of right leg below knee; Z79.82 Long term (current) use of aspirin; Z79.4 Long term (current) use of insulin; Z90.710 Acquired absence of both cervix and uterus
CPT/HCPCS: 36415; 80053; 81001; 85025; 87086; 87088; 99283

== ENCOUNTER 2022-03-30 08:19 | Inpatient (IN) | payer MEDICARE, MEDICAID, SELFPAY ==
[2022-03-30] VITALS (8 sets, daily range): BP systolic 104–124; BP diastolic 49–74; PULSE 92–110; RESP 13–18; TEMP 36.3–37.4; O2SAT 96–100; BMI 27.4
--- NOTE | ~2022-03-30 | CT_ITS ---
EXAMINATION: CT abdomen pelvis w con INDICATION: Abdominal pain TECHNIQUE: Computed tomographic images of the abdomen and pelvis were obtained after the administrati on of 100 cc of Omnipaque 350 intravenous contrast. The dose-length product (DLP) was 1066.41 mGy-cm. Automated exposure control and iterative reconstruction technique were employed. COMPARISON: 03/17/2020 FINDINGS: Minimal dependent atelectasis is present in the lung bases. The heart size is normal. The g allbladder is surgically absent. There is a 1.7 cm hypoattenuating lesion of the liver (image 49). Th e spleen, pancreas, and adrenal glands are normal. The kidneys are unremarkable. There is calcified a therosclerosis of the aorta and many of the other arteries. No pathologically enlarged abdominal or p elvic lymph nodes are identified. There is no free intraperitoneal gas or evidence of bowel obstructi on. Endoluminal stents are present in the left common iliac vein the left external iliac artery, and the right common and external iliac arteries. A small fat-containing epigastric midline ventral herni a is noted. There is antegrade intramedullary trey and interlocking intratrochanteric screw fixation o f the left femur. There is interval vertebroplasty change at L1. There are also a new burst fracture at L2 and new compression fractures at L4 and L5. There are healed fractures of the left superior and inferior pubic rami. IMPRESSION: 1. No CT correlate for the patient's symptoms. 2. Indeterminate hypoattenuating lesion of the liver. Follow-up with nonemergent MRI without and with contrast is recommended. Reviewed, dictated and finalized at location A. IMPRESSION: 1. No CT correlate for the patient's symptoms. 2. Indeterminate hypoattenuating lesion of the liver. Follow-up with nonemergen t MRI without and with contrast is recommended.
--- NOTE | ~2022-03-30 | CT_ITS ---
EXAMINATION: CT brain wo con DATE: 03/30/2022 14:35 INDICATION: Somnolent. TECHNIQUE: Computed tomography (CT) of the head was performed without intravenous contrast. The mA wa s adjusted according to patient size. Iterative reconstruction technique was employed. The dose-lengt h product was 605.33 mGy-cm. COMPARISON: Head CT 02/12/2022 FINDINGS: There are scattered areas of low attenuation in the cerebral white matter. There is no intr acranial hemorrhage, acute infarction, or abnormal intracranial mass lesion. The ventricles are keith l in size. There is mild mucosal thickening in the paranasal sinuses. The orbits are normal. The mast oid air cells are normal. IMPRESSION: 1. Stable mild nonspecific cerebral white matter disease, which likely represents chronic small vesse l ischemic disease. Reviewed, dictated and finalized at location A. IMPRESSION: 1. Stable mild nonspecific cerebral white matter disease, which likely represen ts chronic small vessel ischemic disease.
[2022-03-30] MEDS: ONDANSETRON INJ 4 MG/2 ML VIAL IV PUSH (08:42)
[2022-03-30] MEDS: SODIUM CHLORIDE 0.9% IV 1,000 ML 999 ML IV CONT (08:42)
[2022-03-30] MEDS: FAMOTIDINE 20 MG/2 ML VIAL IV PUSH (08:42)
[2022-03-30 08:49] LABS: Basophils Absolute Auto 0.1 K/mm3 (0.0-0.1); Basophils Percent Auto 0.5 % (0.2-1.2); Eosinophils Absolute Auto 0.1 K/mm3 (0-0.3); Eosinophils Percent Auto 0.7 % (0-4.4); Hematocrit 41.5 % (37.0-47.0); Hemoglobin 13.5 g/dL (12.0-15.0); Immature Granulocyte Absolute 0.05 K/mm3 (0.00-0.031); Immature Granulocyte Percent A 0.4 % (0-0.5); Lymphocytes Absolute Auto 2.85 K/mm3 (0.9-3.2); Lymphocytes Percent Auto 21.5 % (18.3-44.2); Mean Corpuscular HGB Conc 32.5 g/dl (32-36); Mean Corpuscular Hemoglobin 26.8 pg (26-34); Mean Corpuscular Volume 82.5 fl (80-100); Mean Platelet Volume 11.4 fl (7.4-10.4); Monocytes Percent Auto 7.5 % (2.6-8.5); Neutrophils Absolute Auto 9.2 K/mm3 (1.3-6.7); Neutrophils Percent Auto 69.4 % (45.5-73.1); Platelet Count Result 261 k/mm3 (150-375); Red Blood Count 5.03 M/mm3 (4.2-5.4); Red Cell Distribution Width 13.7 % (11.5-14.5); White Blood Count 13.3 K/mm3 (4.5-10.0)
[2022-03-30 09:01] LABS: Appearance Urine Slightly Cloudy (Clear); Bilirubin Urine Negative (Negative); Blood Urine 1+ (Negative); Color Urine Yellow (Yellow); Glucose Urine UA 3+ mg/dL (Negative); Ketones Urine Trace mg/dL (Negative); Leukocyte Esterase Ur 1+ LEU/UL (Negative); Nitrate Urine Positive (Negative); Protein Urine 2+ mg/dL (Negative); Specific Grav Ur >= 1.030 (1.001-1.035); Urobilinogen Urine 0.2 mg/dL (<2.0)
[2022-03-30 09:05] LABS: Bacteria Urine 4+ /hpf; Budding Yeast Urine Present /hpf; Mucus Urine Few /lpf; Squamous Epithelial Cell Urine Rare /hpf (Few); WBC Clumps Urine Present /HPF; WBC Urine >75 /hpf
[2022-03-30 09:06] LABS: Alanine Aminotransferase 30 U/L (6-35); Albumin Level 4.6 g/dL (3.5-5.1); Alkaline Phosphatase 113 U/L (38-126); Anion Gap 12 mmol/L (8-16); Aspartate Amino Transferase 37 U/L (14-36); Bilirubin,Total 0.7 mg/dL (0.2-1.3); Blood Urea Nitrogen 33 mg/dL (7-17); Calcium 9.5 mg/dL (8.4-10.2); Carbon Dioxide 21 mmol/L (22-30); Chloride 99 mmol/L (98-107); Estimated Glomerular Filt Rate > 60; Glucose 240 mg/dL (65-110); Lipase 170 U/L (23-300); Potassium 3.6 mmol/L (3.4-5.0); Sodium 132 mmol/L (137-145)
[2022-03-30 09:06] LABS: Add Urine Microscopic? YES
[2022-03-30 09:24] LABS: Lactic Acid Reflex 1.6 mmol/L (0.7-2.0)
--- NOTE | 2022-03-30 10:31 | ED.ABDPAIN ---
HPI - Abdominal Pain General Chief Complaint: Abdominal Pain Stated Complaint: N/V/D x 2 wks Time Seen by Provider: 03/30/22 08:26 Source: RN notes reviewed History of Present Illness HPI narrative: Patient presents emergency department from home via EMS for nausea vomiting diarrhea. Patient states that she has been having nausea and vomiting over the past several days also states associated diarrhea states has been associated with abdominal pain described as cramping and diffuse throughout the abdomen. She has any fevers or chills she denies any chest pain shortness of breath or any other symptoms denies any measured fevers Related Data Home Medications Medication Instructions Recorded Confirmed aspirin 81 mg tablet 81 mg PO DAILY 07/24/19 02/03/22 ascorbic acid (vitamin C) 500 mg 500 mg PO DAILY 01/06/21 02/03/22 tablet calcium carbonate 500 mg calcium See Rx Instructions .Route .COMPLEX 01/06/21 02/03/22 (1,250 mg) tablet cholecalciferol (vitamin D3) 25 See Rx Instructions PO DAILY 01/06/21 02/03/22 mcg (1,000 unit) capsule diclofenac sodium 1 % topical gel 4 g topical QID 01/06/21 02/03/22 (Voltaren) ferrous sulfate 325 mg (65 mg 325 mg PO DAILY 01/06/21 02/03/22 iron) tablet insulin glargine 100 unit/mL (3 See Rx Instructions .Route .COMPLEX 01/06/21 02/03/22 mL) subcutaneous pen (Basaglar KwikPen U-100 Insulin) insulin lispro 100 unit/mL See Rx Instructions .Route .COMPLEX 01/06/21 02/03/22 subcutaneous pen melatonin 5 mg chewable tablet 5 mg PO QHS 01/06/21 02/03/22 trazodone 50 mg tablet 50 mg PO QHS PRN 01/06/21 02/03/22 Allergies Allergy/AdvReac Type Severity Reaction Status Date / Time propofol Allergy Agitated Verified 03/30/22 08:30 Review of Systems Review of Systems: Gen.: Denies fevers or chills ENT: Denies congestion Respiratory: Denies shortness of breath or cough CV: Denies chest pain or palpitations GI: See HPI denies burning, urgency, frequency or hematuria Musculoskeletal: Denies back pain or muscle pain Neuro: Denies numbness, tingling, weakness or focal weakness Skin: Denies rash Except as documented, all other systems reviewed and negative [facility] Past Medical History Medical History Anxiety Charcot's joint of foot in type 2 diabetes mellitus Of the right foot Chickenpox COPD (chronic obstructive pulmonary disease) Coronary artery disease Depression Diabetes mellitus with insulin therapy Diabetic peripheral neuropathy Fracture of proximal end of left humerus Hypercholesterolemia Left foot pain Measles Metacarpal bone fracture Mononucleosis Mumps Peripheral vascular disease due to secondary diabetes Surgical History Surgical History History of appendectomy History of section History of hysterectomy Due to cervical changes. History of tonsillectomy and adenoidectomy Hx of BKA Right 11/19/20 at [facility] Status post cholecystectomy Stented coronary artery X1 Family History Family History Sibling Diabetes mellitus Mother Family history of Alzheimer's disease Family history of osteoporosis Arthritis Hypertension Cardiomegaly Atrial fibrillation Heart failure Mother No problems noted. Daughter Anxiety Father Esophagus cancer Other Depression Social History Social History Social History: She reports that she has smoked a pack of cigarettes per day. She started when she was 16 and stop smoking for fiber 6 years after the of her 2nd child. She then started smoking again and has smoked since that time. Primary care physician: Dr. Zay Martinez Smoking packs per day: 1 Smoking cigarettes per day: 20.0 Years smoked: 20 Smoking pack-years: 20.00 Smoking status: Current sid
[2022-03-30] MEDS: SODIUM CHLORIDE 0.9% IV 1,000 ML 125 ML IV CONT (10:55)
[2022-03-30 11:58] LABS: Glucose Point of Care 224 mg/dl (65-105)
--- NOTE | 2022-03-30 13:49 | PM.IMHP ---
H&P: HPI History of Present Illness Date/Time: 03/30/22 1130 Chief Complaint: Abdominal pain with N/V/D. Narrative: This 56 year old female patient significant past medical history diabetes mellitus, anxiety, Charcot foot, COPD, coronary artery disease status post coronary stenting x1, peripheral neuropathy, measles, mumps, peripheral vascular disease status post right avoqi-cig-dogb amputation, hyperlipidemia and vitamin-D deficiency is being admitted to the hospitalist service at this time after presenting to the ER today via EMS from home with complaints of a 2 day course of N/V/D and abdominal pain. The pt. underwent workup in the emergency room was significant for white blood cell count 13.3 without any left shift, normal renal function stable electrolytes, lactic acid 1.6 and lipase 170. Urinalysis was significant for positive nitrates, 1+ leukocyte esterase, greater than 75 wbc's and 4+ bacteria. CT of the abdomen pelvis was performed that showed no findings to correlate to the patient's current symptoms. There was however an indeterminate hypoattenuating lesion of the liver and outpatient, nonemergent follow-up MRI with and without contrast is recommended. At the time of my exam, the patient is somnolent, arouses to verbal and tactile stimulation, but awakens with a startle and then drifts off back to sleep. She will not stay awake, and when she is awake, she is reacting shocked and will not follow commands or answer questions. All she will answer for me is that her abdominal pain started yesterday and that it pitts when she urinates. She does not answer the remaining questions of ROS correctly. Review of the patient's recent visits to our emergency room was performed. Five days ago patient presented here on March 25, 2022 with complaints of chest pain. At that time ACS was ruled out and she was discharged home. It appeared as though patient was on Keflex for unknown cause when reviewing the medication reconciliation from that day. Patient then presented again on March 27, 2022, 2 days later with complaints of a rash on her left lower extremity. Although it was not definitive, there was concern for potential beginning of cellulitis. It was also noted in the medication reconciliation of that day the patient had been prescribed Keflex and Bactrim. It is unclear as to what if any patient was actually taking by way of antimicrobial agents. Blood cultures x2 were initiated in the emergency and are currently pending. She was given a dose of Imipenem/Cilastatin in the emergency room it is continued q.6 hours. She is on IV fluids of normal saline at 125 mL/hr. Review of Systems Review of Systems: ROS unobtainable: Yes other (Pt. will not stay awake to answer questions.) [facility] Past Medical History Medical History Anxiety Charcot's joint of foot in type 2 diabetes mellitus Of the right foot Chickenpox COPD (chronic obstructive pulmonary disease) Coronary artery disease Depression Diabetes mellitus with insulin therapy Diabetic peripheral neuropathy Fracture of proximal end of left humerus Hypercholesterolemia Left foot pain Measles Metacarpal bone fracture Mononucleosis Mumps Peripheral vascular disease due to secondary diabetes Surgical History Surgical History History of appendectomy History of section History of hysterectomy Due to cervical changes. History of tonsillectomy and adenoidectomy Hx of BKA Right 11/19/20 at [facility] Status post cholecystectomy Stented coronary artery X1 Family History Family History Sibling Diabetes mellitus Mother Family history of Alzheimer's disease Family history of osteoporosis Arthritis Hypertension Cardiomegaly Atrial fibrillation Heart failure Mother No problems noted.
[2022-03-30 14:35] LABS: Ammonia 18 umol/L (9-30)
[2022-03-30 14:43] LABS: Hemoglobin A1C 9.4 % (<5.7)
[2022-03-30 17:12] LABS: Glucose Point of Care 257 mg/dl (65-105)
[2022-03-30 21:17] LABS: Glucose Point of Care 189 mg/dl (65-105)
[2022-03-30] MEDS: HYDROcodone/acetaminophen (*CRX) 5-325 MG TABLET 1 TAB PO (21:18)
[2022-03-31] MEDS: SODIUM CHLORIDE 0.9% IV 1,000 ML 125 ML IV CONT ×4 (00:16→17:54)
[2022-03-31] MEDS: HYDROcodone/acetaminophen (*CRX) 5-325 MG TABLET 1 TAB PO ×2 (05:13→20:08)
[2022-03-31 06:00] VITALS: BP 113/50; PULSE 92; RESP 17; TEMP 36.6; O2SAT 99
[2022-03-31] MEDS: ALPRAZolam (*CRX) 0.5 MG TABLET PO (06:32)
[2022-03-31 07:05] LABS: Basophils Absolute Auto 0.1 K/mm3 (0.0-0.1); Basophils Percent Auto 0.7 % (0.2-1.2); Eosinophils Absolute Auto 0.1 K/mm3 (0-0.3); Eosinophils Percent Auto 1.6 % (0-4.4); Hematocrit 36.1 % (37.0-47.0); Hemoglobin 11.4 g/dL (12.0-15.0); Immature Granulocyte Absolute 0.05 K/mm3 (0.00-0.031); Immature Granulocyte Percent A 0.6 % (0-0.5); Lymphocytes Absolute Auto 2.04 K/mm3 (0.9-3.2); Lymphocytes Percent Auto 23.6 % (18.3-44.2); Mean Corpuscular HGB Conc 31.6 g/dl (32-36); Mean Corpuscular Volume 85.3 fl (80-100); Mean Platelet Volume 11.6 fl (7.4-10.4); Monocytes Absolute Auto 0.6 K/mm3 (0.1-0.6); Monocytes Percent Auto 6.7 % (2.6-8.5); Neutrophils Absolute Auto 5.8 K/mm3 (1.3-6.7); Neutrophils Percent Auto 66.8 % (45.5-73.1); Platelet Count Result 194 k/mm3 (150-375); Red Blood Count 4.23 M/mm3 (4.2-5.4); Red Cell Distribution Width 13.6 % (11.5-14.5); White Blood Count 8.7 K/mm3 (4.5-10.0)
[2022-03-31 07:13] LABS: Alanine Aminotransferase 21 U/L (6-35); Albumin Level 3.6 g/dL (3.5-5.1); Alkaline Phosphatase 88 U/L (38-126); Anion Gap 10 mmol/L (8-16); Aspartate Amino Transferase 26 U/L (14-36); Bilirubin,Total 0.4 mg/dL (0.2-1.3); Blood Urea Nitrogen 13 mg/dL (7-17); Carbon Dioxide 21 mmol/L (22-30); Chloride 107 mmol/L (98-107); Estimated CRCL calculation 88 ml/min; Estimated Glomerular Filt Rate > 60; Glucose 182 mg/dL (65-110); Magnesium 1.9 mg/dL (1.6-2.3); Potassium 3.1 mmol/L (3.4-5.0); Sodium 138 mmol/L (137-145)
[2022-03-31 08:21] LABS: Glucose Point of Care 169 mg/dl (65-105)
[2022-03-31 09:39] VITALS: O2SAT 95
[2022-03-31 10:53] VITALS: BMI 27.4
[2022-03-31] MEDS: CLOPIDOGREL BISULFATE 75 MG TABLET PO (11:08)
[2022-03-31] MEDS: PREGABALIN (*CRX) 50 MG CAPSULE 100 MG PO ×2 (11:08→17:52)
[2022-03-31] MEDS: DULoxetine HCL 60 MG CAPSULE.DR PO ×2 (11:08→17:52)
[2022-03-31] MEDS: ENOXAPARIN 40 MG/0.4 ML SYRINGE SUB-Q (11:09)
[2022-03-31] MEDS: INSULIN GLARGINE (*BKC) 100 UNITS/ML 20 UNITS SUB-Q ×2 (11:10→17:54)
[2022-03-31 11:25] LABS: Glucose Point of Care 129 mg/dl (65-105)
--- NOTE | 2022-03-31 11:52 | PM.IMPN ---
Progress Note: A&P Assessment and Plan (1) UTI (urinary tract infection): Code(s): N39.0 - Urinary tract infection, site not specified Status: Acute Assessment and Plan: - Urine with significant findings of + Nitrites, 1+ Leuk Est, >75 WBC's, and 4+ Bacteria. - Pt. is not meeting sepsis criteria at this time. - Pt's previous UTI's have been secondary to an ESBL with E.coli and have been sensitive to Imipenem in the past with Cilastatin. Therefore, will continue current abx therapy at this time. Urine culture is pending. - Blood cultures are preliminarily negative at this time. - Monitor labs and VS. - Continue Normal saline at 125 ml/hr. (2) Nausea and vomiting: Code(s): R11.2 - Nausea with vomiting, unspecified Status: Acute Assessment and Plan: - Continue anti-emetics prn - Continue NS at 125 ml/hr - CT abdomen did not correlate to the patient's symptoms. (3) Vitamin D deficiency: Code(s): E55.9 - Vitamin D deficiency, unspecified Status: Chronic Assessment and Plan: - Once home meds are available for reconcilitation, will continue her vitamin d supplementation. (4) COPD (chronic obstructive pulmonary disease): Qualifiers: COPD type: unspecified COPD Qualified Code(s): J44.9 - Chronic obstructive pulmonary disease, unspecified Code(s): J44.9 - Chronic obstructive pulmonary disease, unspecified Status: Chronic Assessment and Plan: - Not currently in exacerbation. - Will contiknue to monitor. (5) Altered mental status: Qualifiers: Altered mental status type: unspecified Qualified Code(s): R41.82 - Altered mental status, unspecified Code(s): R41.82 - Altered mental status, unspecified Status: Resolved Assessment and Plan: - Stat Head CT ordered yesterday was negative for any acute findings. - Stat Ammonia level ordered yesterday was normal. - Likely encephalopathy secondary to current UTI. UDS was ordered, but nursing never collected. - Continue IVF and abx. (6) Diabetes mellitus: Code(s): E11.9 - Type 2 diabetes mellitus without complications Status: Chronic Assessment and Plan: - SSI, changing to moderate dosed secondary to the fasting glucose this AM of 182. - Glucose checks AC and HS - Hypoglycemic protocol - Diabetic diet - HgbA1C is 9.4. (7) Coronary artery disease: Qualifiers: Coronary Disease-Associated Artery/Lesion type: [place] artery [place] vs. transplanted heart: unspecified whether [place] or transplanted heart Code(s): I25.10 - Atherosclerotic heart disease of [place] coronary artery without angina pectoris Status: Chronic Assessment and Plan: - No current symptoms of ACS. - Monitor - Coronary stent in place. Continue Plavix (8) Hyperlipidemia: Code(s): E78.5 - Hyperlipidemia, unspecified Status: Chronic Assessment and Plan: - Will continue Atorvastatin Time Spent With Patient Time with patient: 15 - 25 minutes Subjective Date/time seen: 03/31/22 1020 This pt. was examined at the bedside this AM in interval assessment. She is more alert this AM and is oriented. She continues to complain of abdominal pain and intermittent Nausea without Vomiting or diarrhea. She denies any CP, dyspnea, headache, lightheadedness or dizziness. She continues to receive meds for her UTI which is a presumed ESBL from her previous history. Urine culture is still pending. Review of Systems Review of Systems: All systems reviewed & are unremarkable except as noted in HPI and below Exam Const: General: uncomfortable (cites that she has abdominal pain.) HENMT: General nose exam: Normal nares present and no epistaxis Mouth: Yes moist mucous membranes Eyes: General: appearance normal, both eyes and all related structures Sclera: sclerae normal Pupils: Equal, round and reactive pupils present EOM: EOMs intact bilaterall
--- NOTE | 2022-03-31 13:37 | PCNSR ---
On 03/31/22, the student, Ruth Ann Walker, provided care and completed [facility] documentation on this patient. I have reviewed the student's documentation and agree with the findings.
[2022-03-31 14:00] VITALS: BP 113/75; PULSE 88; RESP 16; TEMP 36.2; O2SAT 99
--- NOTE | 2022-03-31 15:11 | PCPTNOTE ---
Attempted PT session, patient began cry stating I don't feel good. Despite encouragement to participate, patient continued to refuse. RN aware. Will follow.
[2022-03-31 17:27] LABS: Glucose Point of Care 180 mg/dl (65-105)
[2022-03-31 18:40] LABS: Amphetamine Screen Urine Negative (Negative); Barbiturate Screen Urine Negative (Negative); Benzodiazepines Screen Urine Negative (Negative); Cannabinoid Screen Urine Positive (Negative); Cocaine Screen Urine Negative (Negative); Methadone Screen Urine Negative (Negative); Opiate Screen Urine Positive (Negative); Phencyclidine Screen Urine Negative (Negative)
[2022-03-31 22:00] VITALS: BP 112/51; PULSE 82; RESP 18; TEMP 36.3; O2SAT 95
[2022-03-31 22:08] LABS: Glucose Point of Care 215 mg/dl (65-105)
[2022-04-01] MEDS: SODIUM CHLORIDE 0.9% IV 1,000 ML 125 ML IV CONT ×3 (02:01→17:31)
[2022-04-01 06:00] VITALS: BP 127/51; PULSE 79; RESP 18; TEMP 37.1; O2SAT 98
[2022-04-01 06:45] LABS: Basophils Absolute Auto 0.1 K/mm3 (0.0-0.1); Basophils Percent Auto 0.9 % (0.2-1.2); Eosinophils Absolute Auto 0.2 K/mm3 (0-0.3); Eosinophils Percent Auto 2.5 % (0-4.4); Hematocrit 33.8 % (37.0-47.0); Hemoglobin 10.7 g/dL (12.0-15.0); Immature Granulocyte Absolute 0.03 K/mm3 (0.00-0.031); Immature Granulocyte Percent A 0.4 % (0-0.5); Lymphocytes Absolute Auto 1.86 K/mm3 (0.9-3.2); Lymphocytes Percent Auto 24.1 % (18.3-44.2); Mean Corpuscular HGB Conc 31.7 g/dl (32-36); Mean Corpuscular Hemoglobin 26.9 pg (26-34); Mean Corpuscular Volume 84.9 fl (80-100); Mean Platelet Volume 11.2 fl (7.4-10.4); Monocytes Absolute Auto 0.5 K/mm3 (0.1-0.6); Monocytes Percent Auto 6.3 % (2.6-8.5); Neutrophils Absolute Auto 5.1 K/mm3 (1.3-6.7); Neutrophils Percent Auto 65.8 % (45.5-73.1); Platelet Count Result 184 k/mm3 (150-375); Red Blood Count 3.98 M/mm3 (4.2-5.4); Red Cell Distribution Width 13.3 % (11.5-14.5); White Blood Count 7.7 K/mm3 (4.5-10.0)
[2022-04-01 07:11] LABS: Alanine Aminotransferase 20 U/L (6-35); Albumin Level 3.1 g/dL (3.5-5.1); Alkaline Phosphatase 78 U/L (38-126); Anion Gap 5 mmol/L (8-16); Aspartate Amino Transferase 22 U/L (14-36); Bilirubin,Total 0.3 mg/dL (0.2-1.3); Blood Urea Nitrogen 7 mg/dL (7-17); Calcium 7.9 mg/dL (8.4-10.2); Carbon Dioxide 24 mmol/L (22-30); Chloride 106 mmol/L (98-107); Estimated CRCL calculation 88 ml/min; Estimated Glomerular Filt Rate > 60; Glucose 100 mg/dL (65-110); Magnesium 1.8 mg/dL (1.6-2.3); Potassium 2.9 mmol/L (3.4-5.0); Sodium 135 mmol/L (137-145)
[2022-04-01 07:30] LABS: Glucose Point of Care 100 mg/dl (65-105)
[2022-04-01 08:00] VITALS: PULSE 79; RESP 18; O2SAT 98
--- NOTE | 2022-04-01 08:21 | PM.IMPN ---
Progress Note: A&P Assessment and Plan (1) UTI (urinary tract infection): Code(s): N39.0 - Urinary tract infection, site not specified Status: Acute Assessment and Plan: - Urine with significant findings of + Nitrites, 1+ Leuk Est, >75 WBC's, and 4+ Bacteria. - Pt. is not meeting sepsis criteria at this time. - Pt's previous UTI's have been secondary to an ESBL with E.coli and have been sensitive to Imipenem in the past, and once again urine culture has demonstrated an ESBL E coli infection that is sensitive to imipenem. There are oral options available when discharge time is appropriate. - Blood cultures Overnight grew out in 1 set in the anaerobic bottle only Gram-positive cocci in clusters. Patient is not showing signs or symptoms of acute bacteremia either subjectively or objectively, therefore I would like to believe this is a possible contaminant. However, in the meantime we will continue antibiotic treatment with Primaxin pending identity and sensitivity. - Monitor labs and VS. - Continue Normal saline at 125 ml/hr as patient complains of nausea. (2) Nausea and vomiting: Code(s): R11.2 - Nausea with vomiting, unspecified Status: Acute Assessment and Plan: - Continue anti-emetics prn - Continue NS at 125 ml/hr - CT abdomen did not correlate to the patient's symptoms. - Her nausea appears to be worse when she is anxious. Today she complains of a feeling of acid reflux with burning in her throat and heartburn. PPI therapy is maximized with Protonix 40 mg IV push q.12 hours and Tums 200 mg q.6 hours p.r.n. is ordered. - I do question whether not she has a cyclic vomiting syndrome based upon her use of marijuana. If the new treatment with Tums and PPI therapy does not help her symptoms will consider consulting GI services. (3) Vitamin D deficiency: Code(s): E55.9 - Vitamin D deficiency, unspecified Status: Chronic Assessment and Plan: - continue vitamin-D supplementation. (4) COPD (chronic obstructive pulmonary disease): Qualifiers: COPD type: unspecified COPD Qualified Code(s): J44.9 - Chronic obstructive pulmonary disease, unspecified Code(s): J44.9 - Chronic obstructive pulmonary disease, unspecified Status: Chronic Assessment and Plan: - Not currently in exacerbation. - Will continue to monitor. (5) Altered mental status: Qualifiers: Altered mental status type: unspecified Qualified Code(s): R41.82 - Altered mental status, unspecified Code(s): R41.82 - Altered mental status, unspecified Status: Resolved Assessment and Plan: - Stat Head CT ordered yesterday was negative for any acute findings. - Stat Ammonia level ordered yesterday was normal. - Likely encephalopathy secondary to current UTI. UDS was ordered, And was positive for marijuana and opiates. Patient admits to the use of marijuana as her home dosing for chronic pain in her back and shoulder. We did administer [place] here p.r.n. which would account for the opiates in her system as she is not prescribed any for home utilization. - Continue IVF and abx. (6) Diabetes mellitus: Code(s): E11.9 - Type 2 diabetes mellitus without complications Status: Chronic Assessment and Plan: - SSI, changing to moderate dose on 03/31/2022 secondary to suboptimal control. Fasting glucose this morning is 100. We will remain at moderate dose SSI at this time. - Glucose checks AC and HS - Hypoglycemic protocol - Diabetic diet - HgbA1C is 9.4. (7) Coronary artery disease: Qualifiers: Coronary Disease-Associated Artery/Lesion type: [place] artery [place] vs. transplanted heart: unspecified whether [place] or transplanted heart Code(s): I25.10 - Atherosclerotic heart disease of [place] coronary artery without angina pectoris Status: Chronic Assessment and Plan: - No current symptoms of ACS. - Monitor - Co
[2022-04-01] MEDS: DULoxetine HCL 60 MG CAPSULE.DR PO ×2 (08:22→16:26)
[2022-04-01] MEDS: ENOXAPARIN 40 MG/0.4 ML SYRINGE SUB-Q (08:22)
[2022-04-01] MEDS: PREGABALIN (*CRX) 50 MG CAPSULE 100 MG PO ×2 (08:22→16:26)
[2022-04-01] MEDS: CLOPIDOGREL BISULFATE 75 MG TABLET PO (08:23)
[2022-04-01] MEDS: INSULIN GLARGINE (*BKC) 100 UNITS/ML 20 UNITS SUB-Q (08:25)
[2022-04-01] MEDS: POTASSIUM CHLORIDE INJ 40 MEQ in SODIUM CHLORIDE 0.9% IV 500 ML 130 MEQ IVPB (09:05)
--- NOTE | 2022-04-01 09:14 | PCOTNOTE ---
Attempted to see pt. for occupational therapy evaluation. Pt. declined to participated at this time due to fear of nausea and vomiting with activity. Nurse aware. Will follow.
[2022-04-01] MEDS: PANTOPRAZOLE SODIUM IV 40 MG VIAL IV PUSH ×2 (10:14→20:58)
--- NOTE | 2022-04-01 10:14 | PC.NURSE ---
pt refusing lipitor, states allergic to statins, upset her stomach, takes sq injection at home.
[2022-04-01 11:12] LABS: Glucose Point of Care 144 mg/dl (65-105)
[2022-04-01] MEDS: ERGOCALCIFEROL 50,000 UNIT CAPSULE 50000 UNITS PO (11:39)
--- NOTE | 2022-04-01 11:57 | PCPTNOTE ---
The patient treatment was not able to be completed on this date due to patient not feeling good. Therapist asked patient about doing therapy today. Patient shook her head no and stated, Not today, maybe tomorrow. Will plan to continue treatment per plan of care. RN notified.
[2022-04-01 13:39] VITALS: BP 135/67; PULSE 73; RESP 16; TEMP 36.2; O2SAT 90
[2022-04-01] MEDS: ONDANSETRON INJ 4 MG/2 ML VIAL IV PUSH ×2 (16:26→23:39)
--- NOTE | 2022-04-01 16:31 | PC.NURSE ---
observed pt picking at toe nails earlier this shift, pt stated toe nail fell out when pt took sock off, wound consult ordered. cleaned with NS and band-aide applied to 3rd and 4th toe at this time.
[2022-04-01 17:32] LABS: Glucose Point of Care 93 mg/dl (65-105)
[2022-04-01 21:42] LABS: Glucose Point of Care 124 mg/dl (65-105)
[2022-04-01 22:00] VITALS: BP 125/61; PULSE 89; RESP 16; TEMP 36.1; O2SAT 98
[2022-04-01 22:26] VITALS: O2SAT 96
[2022-04-02] MEDS: ONDANSETRON INJ 4 MG/2 ML VIAL IV PUSH ×2 (05:34→17:54)
[2022-04-02 06:00] VITALS: BP 126/73; PULSE 94; RESP 18; TEMP 36.6; O2SAT 99
[2022-04-02 06:55] LABS: Basophils Absolute Auto 0.1 K/mm3 (0.0-0.1); Basophils Percent Auto 0.6 % (0.2-1.2); Eosinophils Absolute Auto 0.1 K/mm3 (0-0.3); Eosinophils Percent Auto 1.6 % (0-4.4); Hematocrit 35.3 % (37.0-47.0); Hemoglobin 11.4 g/dL (12.0-15.0); Immature Granulocyte Absolute 0.04 K/mm3 (0.00-0.031); Immature Granulocyte Percent A 0.5 % (0-0.5); Lymphocytes Absolute Auto 1.89 K/mm3 (0.9-3.2); Lymphocytes Percent Auto 21.7 % (18.3-44.2); Mean Corpuscular HGB Conc 32.3 g/dl (32-36); Mean Corpuscular Hemoglobin 27.1 pg (26-34); Mean Corpuscular Volume 83.8 fl (80-100); Mean Platelet Volume 11.4 fl (7.4-10.4); Monocytes Absolute Auto 0.6 K/mm3 (0.1-0.6); Neutrophils Percent Auto 68.6 % (45.5-73.1); Platelet Count Result 195 k/mm3 (150-375); Red Blood Count 4.21 M/mm3 (4.2-5.4); Red Cell Distribution Width 13.8 % (11.5-14.5); White Blood Count 8.7 K/mm3 (4.5-10.0)
[2022-04-02 07:13] LABS: Alanine Aminotransferase 21 U/L (6-35); Albumin Level 3.3 g/dL (3.5-5.1); Alkaline Phosphatase 80 U/L (38-126); Anion Gap 7 mmol/L (8-16); Aspartate Amino Transferase 50 U/L (14-36); Bilirubin,Total 0.4 mg/dL (0.2-1.3); Blood Urea Nitrogen 3 mg/dL (7-17); Calcium 8.3 mg/dL (8.4-10.2); Carbon Dioxide 24 mmol/L (22-30); Chloride 105 mmol/L (98-107); Estimated CRCL calculation 88 ml/min; Estimated Glomerular Filt Rate > 60; Glucose 76 mg/dL (65-110); Lipase 31 U/L (23-300); Magnesium 1.7 mg/dL (1.6-2.3); Potassium 2.9 mmol/L (3.4-5.0); Sodium 136 mmol/L (137-145)
[2022-04-02 07:43] LABS: Glucose Point of Care 78 mg/dl (65-105)
[2022-04-02 08:00] VITALS: PULSE 94; RESP 18; O2SAT 99
[2022-04-02] MEDS: DULoxetine HCL 60 MG CAPSULE.DR PO (08:25)
[2022-04-02] MEDS: ENOXAPARIN 40 MG/0.4 ML SYRINGE SUB-Q (08:25)
[2022-04-02] MEDS: CLOPIDOGREL BISULFATE 75 MG TABLET PO (08:25)
[2022-04-02] MEDS: PREGABALIN (*CRX) 50 MG CAPSULE 100 MG PO ×2 (08:25→16:46)
[2022-04-02] MEDS: PANTOPRAZOLE SODIUM IV 40 MG VIAL IV PUSH ×2 (08:25→20:26)
[2022-04-02] MEDS: ATORVASTATIN 20 MG TABLET PO (08:25)
[2022-04-02] MEDS: MAGNESIUM SULF 2 GM/WATER 50ML 2 GM/50 ML BAG IVPB (08:53)
[2022-04-02] MEDS: SODIUM CHLORIDE 0.9% IV 1,000 ML 125 ML IV CONT ×2 (09:35→16:21)
[2022-04-02] MEDS: POTASSIUM CHLORIDE INJ 40 MEQ in SODIUM CHLORIDE 0.9% IV 500 ML 130 MEQ IVPB ×2 (10:00→16:46)
[2022-04-02] MEDS: NEOMYCIN/POLYMYXIN/BACITRACIN OINTMENT 15 GM TUBE 1 APPLIC TOPICAL (10:06)
--- NOTE | 2022-04-02 10:08 | PC.NURSE ---
pt refused potassium 40 meq po drink r/t low potassium, stated will only take IV, refused po tablets as well. C/o itching at old IV site, decline topical cream for itching.
--- NOTE | 2022-04-02 10:14 | PC.NURSE ---
Informed provider Fito pt refusing KCl supplement PO, will take IV form. Provider to discuss with pt.
--- NOTE | 2022-04-02 10:15 | PM.IMPN ---
Progress Note: A&P Assessment and Plan (1) UTI (urinary tract infection): Code(s): N39.0 - Urinary tract infection, site not specified Status: Acute Assessment and Plan: - Urine with significant findings of + Nitrites, 1+ Leuk Est, >75 WBC's, and 4+ Bacteria. - Pt. is not meeting sepsis criteria at this time. -Current culture is ESBL with ecoli - Continue IV Primaxin for now - Blood cultures Overnight grew out in 1 set in the anaerobic bottle only Gram-positive cocci in clusters. Patient is not showing signs or symptoms of acute bacteremia either subjectively or objectively, therefore I would like to believe this is a possible contaminant. However, in the meantime we will continue antibiotic treatment with Primaxin pending identity and sensitivity. - Monitor labs and VS. - Continue Normal saline at 125 ml/hr as patient complains of nausea. (2) Nausea and vomiting: Code(s): R11.2 - Nausea with vomiting, unspecified Status: Acute Assessment and Plan: - Continue anti-emetics prn - Continue NS at 125 ml/hr - CT abdomen did not correlate to the patient's symptoms. - Stated that she is still nauseate and is getting antiemtics - I do question whether not she has a cyclic vomiting syndrome based upon her use of marijuana. If the new treatment with Tums and PPI therapy does not help her symptoms will consider consulting GI services. (3) Vitamin D deficiency: Code(s): E55.9 - Vitamin D deficiency, unspecified Status: Chronic Assessment and Plan: - continue vitamin-D supplementation. (4) COPD (chronic obstructive pulmonary disease): Qualifiers: COPD type: unspecified COPD Qualified Code(s): J44.9 - Chronic obstructive pulmonary disease, unspecified Code(s): J44.9 - Chronic obstructive pulmonary disease, unspecified Status: Chronic Assessment and Plan: - Not currently in exacerbation. - Will continue to monitor. (5) Altered mental status: Qualifiers: Altered mental status type: unspecified Qualified Code(s): R41.82 - Altered mental status, unspecified Code(s): R41.82 - Altered mental status, unspecified Status: Resolved Assessment and Plan: - seems to be resolved - Stat Head CT ordered yesterday was negative for any acute findings. - Ammonia level was normal. - Likely encephalopathy secondary to current UTI. UDS was ordered, And was positive for marijuana and opiates. Patient admits to the use of marijuana as her home dosing for chronic pain in her back and shoulder. We did administer [place] here p.r.n. which would account for the opiates in her system as she is not prescribed any for home utilization. - Continue IVF and abx. (6) Diabetes mellitus: Code(s): E11.9 - Type 2 diabetes mellitus without complications Status: Chronic Assessment and Plan: - Glucose is 78 - SSI, changing to moderate dose on 03/31/2022 secondary to suboptimal control. Fasting glucose this morning is 100. We will remain at moderate dose SSI at this time. - Glucose checks AC and HS - Hypoglycemic protocol - Diabetic diet - HgbA1C is 9.4. (7) Coronary artery disease: Qualifiers: Coronary Disease-Associated Artery/Lesion type: [place] artery [place] vs. transplanted heart: unspecified whether [place] or transplanted heart Code(s): I25.10 - Atherosclerotic heart disease of [place] coronary artery without angina pectoris Status: Chronic Assessment and Plan: - No current symptoms of ACS. - Monitor - Coronary stent in place. Continue Plavix (8) Hyperlipidemia: Code(s): E78.5 - Hyperlipidemia, unspecified Status: Chronic Assessment and Plan: - Will continue Atorvastatin (9) Hypokalemia: Code(s): E87.6 - Hypokalemia Status: Acute Assessment and Plan: - patient refused supplemental potassium yesterday for hypokalemia. - Potassium leve
[2022-04-02 11:49] LABS: Glucose Point of Care 156 mg/dl (65-105)
--- NOTE | 2022-04-02 12:39 | PC.NURSE ---
pt requesting anxiety medication, refused Xanax, will call provider Fito for ativan order per pt request.
[2022-04-02 13:49] VITALS: BP 95/78; PULSE 101; RESP 18; TEMP 36.6; O2SAT 98
[2022-04-02 14:22] VITALS: BP 124/68
[2022-04-02 15:41] LABS: Potassium 3.1 mmol/L (3.4-5.0)
--- NOTE | 2022-04-02 15:43 | PC.NURSE ---
K up to 3.1
--- NOTE | 2022-04-02 15:45 | PCDIET ---
MISBAH Rivas to order K [place]red[place] r/t K 3.1
[2022-04-02] MEDS: DULoxetine HCL 30 MG CAPSULE.DR 90 MG PO (16:46)
[2022-04-02 16:51] LABS: Glucose Point of Care 151 mg/dl (65-105)
--- NOTE | 2022-04-02 18:13 | PC.NURSE ---
x2 K runner total ordered for pt this shift.
--- NOTE | 2022-04-02 18:14 | PC.NURSE ---
recheck potassium at 2200 tonight
--- NOTE | 2022-04-02 18:31 | PC.NURSE ---
pt didn't eat a lot of dinner held michelle
[2022-04-02 21:13] LABS: Glucose Point of Care 154 mg/dl (65-105)
[2022-04-02 21:21] VITALS: BP 130/67; PULSE 94; RESP 16; TEMP 36.3; O2SAT 96
[2022-04-02 22:36] LABS: Potassium 3.7 mmol/L (3.4-5.0)
[2022-04-03] MEDS: ALPRAZolam (*CRX) 0.5 MG TABLET PO ×2 (00:34→10:03)
[2022-04-03 05:35] VITALS: BP 138/74; PULSE 90; RESP 14; TEMP 37; O2SAT 93
[2022-04-03 06:29] LABS: Basophils Absolute Auto 0.1 K/mm3 (0.0-0.1); Basophils Percent Auto 0.7 % (0.2-1.2); Eosinophils Absolute Auto 0.3 K/mm3 (0-0.3); Eosinophils Percent Auto 3.3 % (0-4.4); Hematocrit 35.3 % (37.0-47.0); Hemoglobin 11.3 g/dL (12.0-15.0); Immature Granulocyte Absolute 0.02 K/mm3 (0.00-0.031); Immature Granulocyte Percent A 0.2 % (0-0.5); Lymphocytes Absolute Auto 1.88 K/mm3 (0.9-3.2); Lymphocytes Percent Auto 23.1 % (18.3-44.2); Mean Corpuscular Hemoglobin 27.4 pg (26-34); Mean Corpuscular Volume 85.5 fl (80-100); Mean Platelet Volume 11.4 fl (7.4-10.4); Monocytes Absolute Auto 0.6 K/mm3 (0.1-0.6); Monocytes Percent Auto 7.2 % (2.6-8.5); Neutrophils Absolute Auto 5.3 K/mm3 (1.3-6.7); Neutrophils Percent Auto 65.5 % (45.5-73.1); Platelet Count Result 201 k/mm3 (150-375); Red Blood Count 4.13 M/mm3 (4.2-5.4); Red Cell Distribution Width 13.8 % (11.5-14.5); White Blood Count 8.2 K/mm3 (4.5-10.0)
[2022-04-03] MEDS: SODIUM CHLORIDE 0.9% IV 1,000 ML 125 ML IV CONT (06:44)
[2022-04-03 06:59] LABS: Alanine Aminotransferase 18 U/L (6-35); Albumin Level 3.2 g/dL (3.5-5.1); Alkaline Phosphatase 84 U/L (38-126); Anion Gap 6 mmol/L (8-16); Aspartate Amino Transferase 26 U/L (14-36); Bilirubin,Total 0.4 mg/dL (0.2-1.3); Carbon Dioxide 27 mmol/L (22-30); Chloride 103 mmol/L (98-107); Estimated CRCL calculation 88 ml/min; Estimated Glomerular Filt Rate > 60; Glucose 149 mg/dL (65-110); Magnesium 1.7 mg/dL (1.6-2.3); Potassium 3.3 mmol/L (3.4-5.0); Sodium 136 mmol/L (137-145)
[2022-04-03 07:44] LABS: Blood Urea Nitrogen < 2 mg/dL (7-17)
[2022-04-03 07:49] LABS: Glucose Point of Care 146 mg/dl (65-105)
[2022-04-03] MEDS: POTASSIUM CHLORIDE INJ 40 MEQ in SODIUM CHLORIDE 0.9% IV 500 ML 130 MEQ IVPB (10:00)
[2022-04-03] MEDS: ENOXAPARIN 40 MG/0.4 ML SYRINGE SUB-Q (10:02)
[2022-04-03] MEDS: PREGABALIN (*CRX) 50 MG CAPSULE 100 MG PO (10:03)
[2022-04-03] MEDS: CLOPIDOGREL BISULFATE 75 MG TABLET PO (10:03)
[2022-04-03] MEDS: DULoxetine HCL 30 MG CAPSULE.DR 90 MG PO (10:03)
[2022-04-03] MEDS: ATORVASTATIN 20 MG TABLET PO (10:04)
[2022-04-03] MEDS: INSULIN GLARGINE (*BKC) 100 UNITS/ML 20 UNITS SUB-Q (10:04)
[2022-04-03] MEDS: NEOMYCIN/POLYMYXIN/BACITRACIN OINTMENT 15 GM TUBE 1 APPLIC TOPICAL (10:04)
[2022-04-03] MEDS: PANTOPRAZOLE 40 MG TABLET PO (10:33)
--- NOTE | 2022-04-03 11:15 | PM.DS ---
DS: Admitting Diagnosis Discharge Date 04/03/22 1115 Admitting Diagnosis Complicated UTI DS: Discharge Diagnosis Discharge Diagnosis (1) UTI (urinary tract infection): Code(s): N39.0 - Urinary tract infection, site not specified Status: Acute Assessment and Plan: - Urine with significant findings of + Nitrites, 1+ Leuk Est, >75 WBC's, and 4+ Bacteria. - Pt. is not meeting sepsis criteria at this time. - Current culture is ESBL with ecoli - Change to Ertapenum will need a 10 day course - Blood cultures grew staph hominis in one bottle, more than likely a contaminate - Repeat blood culture - Monitor labs and VS. - Midline insertion (2) Nausea and vomiting: Code(s): R11.2 - Nausea with vomiting, unspecified Status: Acute Assessment and Plan: - Continue anti-emetics prn - CT abdomen did not correlate to the patient's symptoms. - Stated that she is still nauseate and is getting antiemetics - Cyclic vomiting syndrome based upon her use of marijuana (3) Vitamin D deficiency: Code(s): E55.9 - Vitamin D deficiency, unspecified Status: Chronic Assessment and Plan: - continue vitamin-D supplementation. (4) COPD (chronic obstructive pulmonary disease): Qualifiers: COPD type: unspecified COPD Qualified Code(s): J44.9 - Chronic obstructive pulmonary disease, unspecified Code(s): J44.9 - Chronic obstructive pulmonary disease, unspecified Status: Chronic Assessment and Plan: - Not currently in exacerbation. - Will continue to monitor. (5) Altered mental status: Qualifiers: Altered mental status type: unspecified Qualified Code(s): R41.82 - Altered mental status, unspecified Code(s): R41.82 - Altered mental status, unspecified Status: Resolved Assessment and Plan: - seems to be resolved - Stat Head CT ordered yesterday was negative for any acute findings. - Ammonia level was normal. - Likely encephalopathy secondary to current UTI. UDS was ordered, And was positive for marijuana and opiates. Patient admits to the use of marijuana as her home dosing for chronic pain in her back and shoulder. We did administer [place] here p.r.n. which would account for the opiates in her system as she is not prescribed any for home utilization. - Continue IVF and abx. (6) Diabetes mellitus: Code(s): E11.9 - Type 2 diabetes mellitus without complications Status: Chronic Assessment and Plan: - Glucose is 149 - SSI, changing to moderate dose on 03/31/2022 secondary to suboptimal control. Fasting glucose this morning is 100. We will remain at moderate dose SSI at this time. - Glucose checks AC and HS - Hypoglycemic protocol - Diabetic diet - HgbA1C is 9.4. (7) Coronary artery disease: Qualifiers: Coronary Disease-Associated Artery/Lesion type: [place] artery [place] vs. transplanted heart: unspecified whether [place] or transplanted heart Code(s): I25.10 - Atherosclerotic heart disease of [place] coronary artery without angina pectoris Status: Chronic Assessment and Plan: - No current symptoms of ACS. - Monitor - Coronary stent in place. Continue Plavix (8) Hyperlipidemia: Code(s): E78.5 - Hyperlipidemia, unspecified Status: Chronic Assessment and Plan: - Will continue Atorvastatin (9) Hypokalemia: Code(s): E87.6 - Hypokalemia Status: Acute Assessment and Plan: - patient refused supplemental potassium orally yesterday for hypokalemia. - Potassium level this morning is 3.3 - Supplement with IV, as she is refusing PO medications at this time - Supplement with 40mg IV x 1 - Hydrogenation Operator consult for high potassium foods - Continue with high potassium diet - Recheck K after infusion - Supplement as indicated (10) Barrier to discharge:
--- NOTE | 2022-04-03 11:24 | PCOTNOTE ---
Attempted to see patient this am, however pt refused stating, Right now, I'm just too cold to do anything. I even had them turn the air completely off yesterday. Encouraged warm sponge bath, however patient declined. Retrieved patient warm blanket for now.
[2022-04-03 12:10] LABS: Glucose Point of Care 182 mg/dl (65-105)
[2022-04-03 13:40] VITALS: BP 103/67; PULSE 101; RESP 20; TEMP 36.6; O2SAT 96
[2022-04-03] MEDS: SALINE LOCK FLUSH 10 ML IV PUSH (14:50)
[2022-04-03 16:15] LABS: EDCOVIDSCREEN Negative (Negative)
[2022-04-03 16:29] LABS: Glucose Point of Care 141 mg/dl (65-105)
== END 2022-04-03 18:22 | DRG 690 ==
LOC: ANHED 10:33 → ANH3MEDSUR 10:49
PROVIDERS: Nurse Practitioner Adult Health; Student in an Organized Health Care Education/Training Program; Admitting Provider Hospitalist; Emergency Provider Emergency Medicine; PCP Emergency Medicine; Visit Provider Nurse Practitioner
DX: N39.0 Urinary tract infection, site not specified (principal); Z16.12 Extended spectrum beta lactamase (ESBL) resistance; E87.6 Hypokalemia; I25.10 Atherosclerotic heart disease of native coronary artery without angina pectoris; J44.9 Chronic obstructive pulmonary disease, unspecified; E11.610 Type 2 diabetes mellitus with diabetic neuropathic arthropathy; E11.42 Type 2 diabetes mellitus with diabetic polyneuropathy; E11.51 Type 2 diabetes mellitus with diabetic peripheral angiopathy without gangrene; E78.00 Pure hypercholesterolemia, unspecified; E55.9 Vitamin D deficiency, unspecified; E78.5 Hyperlipidemia, unspecified; B96.29 Other Escherichia coli [E. coli] as the cause of diseases classified elsewhere; F32.A Depression, unspecified; F41.9 Anxiety disorder, unspecified; F12.90 Cannabis use, unspecified, uncomplicated; F17.210 Nicotine dependence, cigarettes, uncomplicated; Z20.822 Contact with and (suspected) exposure to COVID-19; Z79.4 Long term (current) use of insulin; Z90.710 Acquired absence of both cervix and uterus; Z90.49 Acquired absence of other specified parts of digestive tract; Z95.5 Presence of coronary angioplasty implant and graft; Z89.511 Acquired absence of right leg below knee
CPT/HCPCS: 36415; 36569; 51701; 70450; 74177; 80053; 80307; 81001; 81025; 82140; 82948; 83036; 83605; 83690; 83735; 84132; 85025; 87040; 87077; 87086; 87088; 87186; 87426; 96361; 96365; 96366; 96372; 96375; 97161; 97166; 99285; A9270; C1751; C9113; C9803; G0378; J0743; J1335; J1650; J1815; J2405; J3475; J3480; J7030; J7040; Q9967

== ENCOUNTER 2022-05-02 00:56 | Emergency (ER) | payer MEDICARE, MEDICAID, SELFPAY ==
[2022-05-02] VITALS (24 sets, daily range): BP systolic 100–128; BP diastolic 57–73; PULSE 86–99; RESP 0–21; TEMP 36.6; O2SAT 93–100
--- NOTE | ~2022-05-02 | CT_ITS ---
EXAMINATION: CT pelvis wo con DATE: 05/02/2022 02:31 INDICATION: Left hip pain. TECHNIQUE: Computed tomography (CT) of the pelvis was performed without intravenous contrast. Automat ed exposure control and iterative reconstruction technique were employed. The dose-length product was 740.52 mGy-cm. COMPARISON: CT abdomen and pelvis 03/30/2022 FINDINGS: There are stents in the external iliac arteries. There is a stent in left common iliac vein extending to the inferior vena cava. There are no pathologically enlarged lymph nodes. There is no f ree intraperitoneal fluid. There is an old healed fracture of proximal left femur with internal fixat ion with antegrade intramedullary trey, femoral head/neck screw, and distal interlocking screw. There are old healed fractures of left superior and inferior pubic rami. No acute fracture. There is modera te osteoarthritis of the hips. There is mild chronic height loss of L4 and L5 vertebral bodies. There is moderate lower lumbar spondylosis. IMPRESSION: 1. No acute fracture. 2. Moderate osteoarthritis of the hips. Reviewed, dictated and finalized at location A.
--- NOTE | ~2022-05-02 | XR_ITS ---
EXAMINATION: XR hip LT min 2V DATE: 05/02/2022 02:03 INDICATION: Left hip pain. TECHNIQUE: 2 views of left hip were obtained. COMPARISON: None. FINDINGS: Bone alignment is normal. There are old healed fractures of left superior and inferior pubi c rami. There is an old healed fracture of proximal left femur with internal fixation with antegrade intramedullary trey, distal interlocking screw, and femoral head/neck screw. There is mild left hip os teoarthritis. IMPRESSION: 1. Mild left hip osteoarthritis. Reviewed, dictated and finalized at location A.
--- NOTE | ~2022-05-02 | US_ITS ---
EXAMINATION: US venous doppler [facility] DATE: 05/02/2022 07:34 INDICATION: Left lower limb pain. TECHNIQUE: Grayscale ultrasound images without and with compression and Doppler ultrasound images of the left lower extremity veins were obtained. COMPARISON: None. FINDINGS: The visualized portions of left common femoral vein, profunda (deep) femoral vein, femoral vein, popl iteal vein, peroneal veins, posterior tibial veins, and greater saphenous vein outflow are patent. IMPRESSION: 1. No deep venous thrombosis. Reviewed, dictated and finalized at location A.
--- NOTE | 2022-05-02 01:17 | ED.LOWEXIN ---
HPI - Extremity Injury (Lower) General Chief Complaint: Extremity Injury, Lower <Heather Beltran PA-C - Last Filed: 05/02/22 03:38> Stated Complaint: HIP PAIN <Heather Beltran PA-C - Last Filed: 05/02/22 03:38> Time Seen by Provider: 05/02/22 00:56 <Heather Beltran PA-C - Last Filed: 05/02/22 03:38> History of Present Illness HPI Narrative: Patient is a 56-year-old female with a complex medical history including diabetes, Charcot foot, right BKA, left hip fracture status post replacement who currently resides in a assisted living facility here for evaluation of left hip pain.? Patient states the pain came on during a turn while in bed today, states that the staff pushed on her hip to address her wound and she developed a sharp pain ever since.? She did not have any known falls.? She was given 2 doses of scheduled hydrocodone without relief of her pain.?Additionally was given a xanax. Denies any numbness or tingling in her leg.? No fevers, chills, nausea, vomiting, diarrhea, saddle anesthesia, urgency or frequency of urination. No back pain.? Patient was in her usual state of health this morning, denied any pain at the site prior to onset. She does have a history of hip replacement on the left. <Heather Beltran PA-C - Last Filed: 05/02/22 03:38> Related Data Home Medications: Home Medications Medication Instructions Recorded Confirmed cholecalciferol (vitamin D3) 50,000 units PO WEEKLY 03/30/22 03/30/22 insulin glargine 100 unit/mL (3 20 unit subcut BID 03/30/22 03/30/22 mL) subcutaneous pen (Basaglar KwikPen U-100 Insulin) insulin lispro 100 unit/mL 10 unit subcut TID 03/30/22 03/30/22 subcutaneous solution (Admelog U-100 Insulin lispro) semaglutide 0.25 mg or 0.5 mg (2 1 mg subcut WEEKLY 03/30/22 03/30/22 mg/1.5 mL) subcutaneous pen injector (Ozempic) <Heather Beltran PA-C - Last Filed: 05/02/22 03:38> Allergies/Adverse Reactions: Allergies Allergy/AdvReac Type Severity Reaction Status Date / Time propofol Allergy Agitated Verified 05/02/22 01:11 <Heather Beltran PA-C - Last Filed: 05/02/22 03:38> Review of Systems Review of Systems: Gen: Denies fevers or chills Eyes: Denies eye pain or visual change ENT: Denies congestion Respiratory: Denies shortness of breath or cough CV: Denies chest pain or palpitations GI: Denies abdominal pain nausea, emesis or diarrhea : denies burning, urgency, frequency or hematuria Musculoskeletal: Reports left hip pain. Neuro: Denies numbness, tingling, weakness or focal weakness Skin: Denies rash Except as documented, all other systems reviewed and negative <Heather Beltran PA-C - Last Filed: 05/02/22 03:38> [facility] Past Medical History Medical History: Medical History Anxiety Charcot's joint of foot in type 2 diabetes mellitus Of the right foot Chickenpox COPD (chronic obstructive pulmonary disease) Coronary artery disease Depression Diabetes mellitus with insulin therapy Diabetic peripheral neuropathy Fracture of proximal end of left humerus Hypercholesterolemia Left foot pain Measles Metacarpal bone fracture Mononucleosis Mumps Peripheral vascular disease due to secondary diabetes <Heahter Beltran PA-C - Last Filed: 05/02/22 03:38> Surgical History Surgical History: Surgical History History of appendectomy History of section History of hysterectomy Due to cervical changes. History of tonsillectomy and adenoidectomy Hx of BKA Right 11/19/20 at [facility] Status post cholecystectomy Stented coronary artery X1 <Heather Beltran PA-C - Last Filed: 05/02/22 03:38> Family History Family History: Family History Sibling Diabetes mellitus Mother
[2022-05-02] MEDS: KETOROLAC 15 MG/ML VIAL (*BKC) IV PUSH (01:35)
[2022-05-02] MEDS: LIDOCAINE 5% PATCH 1 PATCH TRANSDERM (01:35)
[2022-05-02 02:43] LABS: Basophils Absolute Auto 0.1 K/mm3 (0.0-0.1); Basophils Percent Auto 0.6 % (0.2-1.2); Eosinophils Absolute Auto 0.2 K/mm3 (0-0.3); Eosinophils Percent Auto 2.3 % (0-4.4); Hematocrit 34.5 % (37.0-47.0); Hemoglobin 11.1 g/dL (12.0-15.0); Immature Granulocyte Absolute 0.02 K/mm3 (0.00-0.031); Immature Granulocyte Percent A 0.2 % (0-0.5); Lymphocytes Absolute Auto 2.56 K/mm3 (0.9-3.2); Lymphocytes Percent Auto 31.6 % (18.3-44.2); Mean Corpuscular HGB Conc 32.2 g/dl (32-36); Mean Corpuscular Hemoglobin 26.9 pg (26-34); Mean Corpuscular Volume 83.5 fl (80-100); Mean Platelet Volume 10.6 fl (7.4-10.4); Monocytes Absolute Auto 0.4 K/mm3 (0.1-0.6); Monocytes Percent Auto 5.3 % (2.6-8.5); Neutrophils Absolute Auto 4.8 K/mm3 (1.3-6.7); Platelet Count Result 212 k/mm3 (150-375); Red Blood Count 4.13 M/mm3 (4.2-5.4); Red Cell Distribution Width 13.2 % (11.5-14.5); White Blood Count 8.1 K/mm3 (4.5-10.0)
[2022-05-02 02:56] LABS: Partial Thromboplastin Time 26.9 SECONDS (22.3-36.8)
[2022-05-02 03:09] LABS: Anion Gap 8 mmol/L (8-16); Blood Urea Nitrogen 13 mg/dL (7-17); Calcium 8.6 mg/dL (8.4-10.2); Carbon Dioxide 25 mmol/L (22-30); Chloride 104 mmol/L (98-107); Estimated CRCL calculation 91 ml/min; Estimated Glomerular Filt Rate > 60; Glucose 181 mg/dL (65-110); Sodium 137 mmol/L (137-145)
[2022-05-02 03:19] LABS: D Dimer 0.97 ug/mL (<0.48)
--- NOTE | 2022-05-02 10:12 | PC.NURSE ---
Many attempts made to give report on the pt to the [place] [facility], no answers.
== END 2022-05-02 11:57 ==
PROVIDERS: Physician Assistant; Emergency Provider General Practice; PCP Emergency Medicine
DX: M25.552 Pain in left hip (principal); M79.662 Pain in left lower leg; E11.610 Type 2 diabetes mellitus with diabetic neuropathic arthropathy; Z89.511 Acquired absence of right leg below knee; Z96.642 Presence of left artificial hip joint; J44.9 Chronic obstructive pulmonary disease, unspecified; E11.40 Type 2 diabetes mellitus with diabetic neuropathy, unspecified; E78.00 Pure hypercholesterolemia, unspecified; E11.51 Type 2 diabetes mellitus with diabetic peripheral angiopathy without gangrene; F41.9 Anxiety disorder, unspecified; F32.A Depression, unspecified; Z79.4 Long term (current) use of insulin; Z79.899 Other long term (current) drug therapy; Z95.5 Presence of coronary angioplasty implant and graft; F17.210 Nicotine dependence, cigarettes, uncomplicated; Z79.02 Long term (current) use of antithrombotics/antiplatelets; Z79.891 Long term (current) use of opiate analgesic
CPT/HCPCS: 36415; 72192; 73502; 80048; 85025; 85380; 85610; 85730; 93971; 96374; 99284; A9270; J1885

== ENCOUNTER 2022-06-15 08:59 | Inpatient (IN) | payer MEDICARE, MEDICAID, SELFPAY ==
[2022-06-15] VITALS (40 sets, daily range): BP systolic 103–144; BP diastolic 55–95; PULSE 94–107; RESP 14–25; TEMP 36.1–36.7; O2SAT 92–100; BMI 26.9
--- NOTE | ~2022-06-15 | NM_ITS ---
EXAMINATION: NM beba stress w perfusion DATE: 06/17/2022 13:19 INDICATION: Congestive heart failure. Coronary artery disease and elevated troponin. TECHNIQUE: Rest images were obtained following intravenous administration of 10 mCi Tc99m tetrofosmin (Myoview). The patient was infused intravenously with Lexiscan (Regadenoson). Then, 30 mCi Tc99m tet rofosmin (Myoview) was administered intravenously, and stress images were obtained. Data was reconstr ucted into short axis and horizontal and vertical long axis SPECT images. Gated SPECT images were als o obtained. COMPARISON: None. FINDINGS: Large severe nonreversible perfusion defect consistent with infarct involving the apical, m id and basilar inferior segments, the apical lateral segment, mid and basilar inferolateral and mid a nd basilar anterolateral segments. No reversible perfusion defects to suggest infarct. There is keith l left ventricular chamber size with decreased wall motion along the lateral side of the left ventric le resulting in a mild to moderately decreased left ventricular ejection fraction which measures 30%. IMPRESSION: 1. Large severe nonreversible perfusion defect involving the anterolateral, inferolateral and inferio r schaefer of the left ventricle consistent with likely infarct of the circumflex coronary artery. No re versible ischemia. 2. Mild to moderately decreased left ventricular ejection fraction measuring 30%. Reviewed, dictated and finalized at location B. IMPRESSION: 1. Large severe nonreversible perfusion defect involving the anterolateral, inf erolateral and inferior schaefer of the left ventricle consistent with likely infa rct of the circumflex coronary artery. No reversible ischemia. 2. Mild to moderately decreased left ventricular ejection fraction measuring 30 %.
--- NOTE | ~2022-06-15 | XR_ITS ---
EXAMINATION: XR chest 1V portable DATE: 06/15/2022 10:03 INDICATION: Hypoxia TECHNIQUE: frontal view of the chest was obtained. COMPARISON: Chest radiograph dated 03/25/2022 FINDINGS: Lower lung predominant diffuse bilateral increased interstitial pattern. Airspace opacities at the bi lateral lower lung zones. Small bilateral pleural effusions. No pneumothorax. The cardiomediastinal s ilhouette is normal. 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 Vertebroplasty in the region of the t horacolumbar junction. IMPRESSION: 1. Likely congestive heart failure with diffuse bilateral pulmonary edema and small bilateral pleural effusions. 2. Opacities at the bilateral lower lung zones most likely associated atelectasis although pneumonia not excludable. Reviewed, dictated and finalized at location B. IMPRESSION: 1. Likely congestive heart failure with diffuse bilateral pulmonary edema and s mall bilateral pleural effusions. 2. Opacities at the bilateral lower lung zones most likely associated atelectas is although pneumonia not excludable.
--- NOTE | ~2022-06-15 | CT_ITS ---
EXAMINATION: CTA chest PE protocol DATE: 06/15/2022 11:37 INDICATION: Shortness of breath. Hypoxia. Elevated d-dimer. TECHNIQUE: Computed tomography angiography (CTA) of the chest was performed with 100 mL Omnipaque-350 intravenous contrast timed to evaluate the pulmonary arteries. Coronal maximum intensity projection 3D-reconstructions were created by the technologist. Automated exposure control and iterative reconst ruction technique were employed. Exam dose: 670.10 mGy-cm total exam DLP. COMPARISON: 06/15/2022 portable AP chest FINDINGS: There is diagnostic contrast enhancement of the pulmonary arteries and no evidence of pulmo nary embolism. There is mild cardiac megaly. No pericardial effusion. There is mild bilateral pleural effusions. The re is pulmonary vascular prominence and prominence of the pulmonary interstitium and interlobular sep tae, consistent with pulmonary interstitial edema. There are bilateral primarily dependent upper lobe and to a greater extent the dependent lower lobe and basilar infiltrates and/or atelectasis. No hilar or mediastinal mass lesion or lymphadenopathy. Status post cholecystectomy. Status post vertebroplasty at burst fracture of T1. There is mild cupping of the superior vertebral e ndplates of T11 and T12. There is evidence of fracture deformity at L2 but this vertebra is barely in cluded in this examination. IMPRESSION: No evidence of pulmonary embolism Congestive changes, pulmonary edema, mild bilateral pleural effusions, bilateral predominantly depend ent and basilar infiltrates and/atelectasis Vertebroplasty at burst fracture of T1 Mild compression fractures of T11 and T12. Fracture of L2, barely included in this examination Reviewed, dictated and finalized at Location A. Reviewed, dictated and finalized at location A. IMPRESSION: No evidence of pulmonary embolism Congestive changes, pulmonary edema, mild bilateral pleural effusions, bilatera l predominantly dependent and basilar infiltrates and/atelectasis Vertebroplasty at burst fracture of T1 Mild compression fractures of T11 and T12. Fracture of L2, barely included in t his examination
--- NOTE | ~2022-06-15 | MR_ITS ---
EXAMINATION: MR abdomen wo/w con DATE: 06/26/2022 16:04 INDICATION: Liver mass. TECHNIQUE: Magnetic resonance imaging (MRI) of the abdomen was performed without and with 15 mL Multi Alexei intravenous contrast. COMPARISON: CT abdomen and pelvis 03/30/2022 FINDINGS: The liver and spleen are normal. Pancreas divisum is noted. The adrenal glands and left kidney are no rmal. There is a 9 mm cyst in right kidney. There are no dilated loops of bowel. There are no patholo gically enlarged lymph nodes. There is no free intraperitoneal fluid. There are multiple chronic vert ebral body fractures with changes of vertebroplasty at L1. IMPRESSION: 1. Normal liver. The finding on the prior CT was likely transient focal steatosis. Reviewed, dictated and finalized at location A. ICAL SERVICES SPECIALIST IMPRESSION: 1. Normal liver. The finding on the prior CT was likely transient focal steatos is.
--- NOTE | ~2022-06-15 | XR_ITS ---
EXAMINATION: XR chest 1V portable INDICATION: Congestive heart failure TECHNIQUE: Portable AP chest at 1126 hours COMPARISON: 06/15/2022 FINDINGS: A mild diffuse interstitial pattern persists with improvement. No pleural effusion or pneum othorax. The cardiomediastinal silhouette is normal. An electronic implant is noted in the left chest wall. There is a chronic healed fracture of the left humeral head. IMPRESSION: 1. Improved pulmonary edema. Reviewed, dictated and finalized at location B. [facility] OUTSIDE
--- NOTE | 2022-06-15 09:04 | ECG_ITS ---
Measurements Intervals Harmony Rate: 86 P: 62 MS: 158 QRS: -5 QRSD: 102 T: 116 QT: 401 QTc: 481 Interpretive Statements SINUS RHYTHM POSSIBLE LEFT ATRIAL ENLARGEMENT [-0.1mV P WAVE IN V1/V2] IVCD/ INCOMPLETE LEFT BUNDLE BRANCH BLOCK COMPARED TO ECG 03/25/2022 03:51:18 INCOMPLETE LEFT BUNDLE BRANCH BLOCK IS SEEN Electronically Signed On 06-15-2022 12:53:46 CDT by Zay Garcia M.D.
--- NOTE | 2022-06-15 09:19 | PC.NURSE ---
pt states she does not want IV. Pt decline IV access 3 times.
[2022-06-15 09:48] LABS: Alanine Aminotransferase 17 U/L (6-35); Albumin Level 3.6 g/dL (3.5-5.1); Alkaline Phosphatase 88 U/L (38-126); Anion Gap 15 mmol/L (8-16); Aspartate Amino Transferase 19 U/L (14-36); Bilirubin,Total 0.4 mg/dL (0.2-1.3); Blood Urea Nitrogen 13 mg/dL (7-17); Calcium 8.1 mg/dL (8.4-10.2); Carbon Dioxide 20 mmol/L (22-30); Chloride 106 mmol/L (98-107); Estimated Glomerular Filt Rate > 60; Glucose 254 mg/dL (65-110); Lipase 91 U/L (23-300); Magnesium 1.7 mg/dL (1.6-2.3); Potassium 3.1 mmol/L (3.4-5.0); Sodium 141 mmol/L (137-145)
[2022-06-15] MEDS: LORazepam (*CRX) 1 MG TABLET PO (09:57)
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
[2022-06-15 10:01] LABS: Troponin I 0.775 ng/mL (0.000-0.034)
[2022-06-15 10:04] LABS: NT Pro B Type Natriuretic Pept 2210 pg/mL (5-100)
[2022-06-15 10:13] LABS: Influenza A QL RT-PCR Negative (Negative); Influenza B QL RT-PCR Negative (Negative); SARS-CoV-2 RNA PCR Negative
[2022-06-15 10:47] LABS: Basophils Percent Auto 0.4 % (0.2-1.2); Eosinophils Absolute Auto 0.1 K/mm3 (0-0.3); Hematocrit 39.8 % (37.0-47.0); Hemoglobin 12.5 g/dL (12.0-15.0); Immature Granulocyte Absolute 0.04 K/mm3 (0.00-0.031); Immature Granulocyte Percent A 0.4 % (0-0.5); Lymphocytes Absolute Auto 1.66 K/mm3 (0.9-3.2); Lymphocytes Percent Auto 15.4 % (18.3-44.2); Mean Corpuscular HGB Conc 31.4 g/dl (32-36); Mean Corpuscular Hemoglobin 26.4 pg (26-34); Mean Platelet Volume 11.6 fl (7.4-10.4); Monocytes Absolute Auto 0.4 K/mm3 (0.1-0.6); Monocytes Percent Auto 3.7 % (2.6-8.5); Neutrophils Absolute Auto 8.5 K/mm3 (1.3-6.7); Neutrophils Percent Auto 79.1 % (45.5-73.1); Platelet Count Result 262 k/mm3 (150-375); Red Blood Count 4.74 M/mm3 (4.2-5.4); Red Cell Distribution Width 13.4 % (11.5-14.5); White Blood Count 10.8 K/mm3 (4.5-10.0)
[2022-06-15 10:57] LABS: INR 0.9; Prothrombin Time 11.9 Seconds (11.1-14.7)
[2022-06-15 10:58] LABS: Partial Thromboplastin Time 25.7 SECONDS (22.3-36.8)
[2022-06-15] MEDS: SODIUM CHLORIDE 0.9% IV 1,000 ML 999 ML IV CONT (11:01)
[2022-06-15 11:11] LABS: D Dimer 2.26 ug/mL (<0.48)
[2022-06-15] MEDS: FUROSEMIDE INJ 40 MG/4 ML VIAL IV PUSH (12:15)
[2022-06-15 12:32] LABS: Appearance Urine Clear (Clear); Bilirubin Urine Negative (Negative); Blood Urine Negative (Negative); Color Urine Yellow (Yellow); Glucose Urine UA 2+ mg/dL (Negative); Ketones Urine Trace mg/dL (Negative); Leukocyte Esterase Ur Negative LEU/UL (Negative); Nitrate Urine Negative (Negative); Protein Urine Negative (Negative); Specific Grav Ur 1.015 (1.001-1.035); Urobilinogen Urine 0.2 mg/dL (<2.0)
[2022-06-15 12:39] LABS: RBC Urine 0-2 /hpf (0-2); Squamous Epithelial Cell Urine Rare /hpf (Few)
--- NOTE | 2022-06-15 12:41 | PC.NURSE ---
pt refused potassium PO, stated, will only take gelcaps
[2022-06-15 12:53] LABS: Add Urine Microscopic? YES
--- NOTE | 2022-06-15 13:15 | PM.IMHP ---
H&P: HPI History of Present Illness Date/Time: 06/15/22 13:15 Chief Complaint: Shortness of breath. Narrative: This is a 56-year-old female with COPD, coronary artery disease with history of stent, insulin dependent diabetes, hyperlipidemia, and peripheral vascular disease status post right [id number] amputation who presented to the ED via EMS from home for evaluation of shortness of breath. She was discharged from rehab about a week ago after 3 weeks [facility] hospitalization for altered mental status. She has been doing well at home until this morning when she was wakened from sleep from sudden onset of shortness of breath which caused her to panic and in turn she started to feel increasingly short of breath. She was apparently hypoxic on EMS arrival and she has been 3 liters nasal cannula since that time. Was tachycardic on arrival to the emergency department and a CT of the chest was performed due to an elevated D-dimer. There was no evidence of pulmonary embolism however congestive changes were noted. Her troponin and BNP were elevated at 0.775 and 2210 respectively. EKG demonstrated sinus rhythm with an incomplete left bundle branch block which is a new finding. She is being admitted in this setting for close monitoring and Cardiology consultation. At the time my evaluation she is feeling a lot better and is upset that she is not able to return home. He has no current complaints and she denies sweats, chest pain, pleuritic pain, nausea, and vomiting. She has no history of sleep apnea she states she sleeps good a majority of the time. No orthopnea, paroxysmal nocturnal dyspnea, or edema. Review of Systems Review of Systems: Twelve systems were reviewed. No fever, chills, or sweats. No sinus congestion, rhinorrhea, otalgia, or odynophagia. She denies sick contacts. No diarrhea or dysuria. Except as documented all other systems were reviewed and are negative [facility] Past Medical History Medical History (Updated 06/15/22 @ 19:29 by Mireya Matson PA-C) Anxiety Charcot's joint of foot in type 2 diabetes mellitus Of the right foot Chickenpox Chronic obstructive pulmonary disease Coronary artery disease Depression Diabetes mellitus with insulin therapy Diabetic peripheral neuropathy Fracture of proximal end of left humerus Hypercholesterolemia Left foot pain Measles Metacarpal bone fracture Mononucleosis Mumps Peripheral vascular disease due to secondary diabetes Surgical History Surgical History History of appendectomy History of section History of hysterectomy Due to cervical changes. History of tonsillectomy and adenoidectomy Hx of BKA Right 11/19/20 at [facility] Status post cholecystectomy Stented coronary artery X1 Family History Family History Sibling Diabetes mellitus Mother Heart failure Cardiomegaly Arthritis Atrial fibrillation Family history of osteoporosis Family history of Alzheimer's disease Hypertension Cardiomyopathy Acute myocardial infarction History of heart artery stent Congestive heart failure Daughter Anxiety Father Esophagus cancer Cancer of spinal column Social History Social History (Updated 06/15/22 @ 19:26 by Mireya Matson PA-C) Social History: Surrogate medical decision maker: Jass Arciniega, son. Code status: Full code. Smoking packs per day: 1.5 Smoking cigarettes per day: 30.0 Years smoked: 20 Smoking pack-years: 30.00 Smoking status: Former smoker Tobacco type: cigarettes Second hand tobacco smoke exposure: No Additional smoking assessment comments: quit 2019 Alcohol intake: never Drinks per week: 1 Substance use: never Substance use type: other Other substance usage details: edibles Last use: 03/30/2022 Has the Lack of Transportation Kept You From Medical Appointments or From Getting Medica
[2022-06-15 13:24] LABS: Troponin I 0.779 ng/mL (0.000-0.034)
[2022-06-15] MEDS: POTASSIUM CHLORIDE 20 MEQ PACKET (FOR LIQUID) 40 MEQ PO (16:46)
--- NOTE | 2022-06-15 17:34 | ADMGEN ---
This patient, Tiff Vaughn, was admitted to IMU Room 200-01. Patient/family oriented to hospital policies and general routines including ID bracelet, bed and alarms, visiting hours, pain management, procedures, bathroom and other care routines, personal items, smoking policy, room service/diet, and visiting hours. Information on how to activate the Rapid Response Team has been discussed. Patient/Family are encouraged to report perceived risks to care and to ask questions if they do not understand what they are told or what they should do.
[2022-06-15 20:45] LABS: Hemoglobin A1C 8.5 % (<5.7)
[2022-06-15] MEDS: INSULIN GLARGINE (*BKC) 100 UNITS/ML 20 UNITS SUB-Q (20:49)
[2022-06-15] MEDS: PREGABALIN (*CRX) 50 MG CAPSULE 100 MG PO (20:49)
[2022-06-15 21:01] LABS: Glucose Point of Care 257 mg/dl (65-105)
[2022-06-15 21:06] LABS: Troponin I 0.568 ng/mL (0.000-0.034)
[2022-06-15] MEDS: HYDROcodone/acetaminophen (*CRX) 5-325 MG TABLET 1 TAB PO (23:08)
[2022-06-16] VITALS (13 sets, daily range): BP systolic 84–142; BP diastolic 53–75; PULSE 77–107; RESP 12–20; TEMP 36.5–36.8; O2SAT 90–98
[2022-06-16] MEDS: ALPRAZolam (*CRX) 0.5 MG TABLET PO ×2 (00:34→23:11)
[2022-06-16 05:32] LABS: Hemoglobin 12.8 g/dL (12.0-15.0); Mean Corpuscular HGB Conc 31.2 g/dl (32-36); Mean Corpuscular Hemoglobin 25.7 pg (26-34); Mean Corpuscular Volume 82.2 fl (80-100); Mean Platelet Volume 11.5 fl (7.4-10.4); Platelet Count Result 292 k/mm3 (150-375); Red Blood Count 4.99 M/mm3 (4.2-5.4); Red Cell Distribution Width 13.4 % (11.5-14.5); White Blood Count 8.4 K/mm3 (4.5-10.0)
[2022-06-16 05:42] LABS: Anion Gap 16 mmol/L (8-16); Blood Urea Nitrogen 10 mg/dL (7-17); Calcium 8.5 mg/dL (8.4-10.2); Carbon Dioxide 24 mmol/L (22-30); Chloride 102 mmol/L (98-107); Estimated CRCL calculation 76 ml/min; Estimated Glomerular Filt Rate > 60; Glucose 202 mg/dL (65-110); Magnesium 1.8 mg/dL (1.6-2.3); Potassium 3.1 mmol/L (3.4-5.0); Sodium 142 mmol/L (137-145)
[2022-06-16] MEDS: INSULIN GLARGINE (*BKC) 100 UNITS/ML 20 UNITS SUB-Q ×2 (08:14→20:17)
[2022-06-16 08:20] LABS: Glucose Point of Care 175 mg/dl (65-105)
[2022-06-16] MEDS: MAGNESIUM SULF 1 GM/D5W 100 ML 1 GM/100 ML BAG IVPB (08:31)
[2022-06-16] MEDS: FUROSEMIDE INJ 40 MG/4 ML VIAL 20 MG IV PUSH ×2 (09:35→17:56)
[2022-06-16] MEDS: ENOXAPARIN 80 MG/0.8 ML SYRINGE SUB-Q (09:37)
[2022-06-16] MEDS: DULoxetine HCL 30 MG CAPSULE.DR 60 MG PO ×2 (10:52→20:18)
[2022-06-16] MEDS: PREGABALIN (*CRX) 50 MG CAPSULE 100 MG PO ×2 (10:52→20:19)
[2022-06-16 12:05] LABS: Glucose Point of Care 179 mg/dl (65-105)
--- NOTE | 2022-06-16 14:28 | PM.IMPN ---
Progress Note: A&P Assessment and Plan (1) Elevated troponin: Code(s): R77.8 - Other specified abnormalities of plasma proteins Status: Acute (2) Shortness of breath: Code(s): R06.02 - Shortness of breath Status: Acute (3) Pulmonary edema: Code(s): J81.1 - Chronic pulmonary edema Status: Acute (4) Coronary artery disease: Code(s): I25.10 - Atherosclerotic heart disease of [place] coronary artery without angina pectoris Status: Acute (5) Type 2 diabetes mellitus: Code(s): E11.9 - Type 2 diabetes mellitus without complications Status: Acute (6) Chronic obstructive pulmonary disease: Code(s): J44.9 - Chronic obstructive pulmonary disease, unspecified Status: Acute (7) Hypokalemia: Code(s): E87.6 - Hypokalemia Status: Acute Plan Patient presents so the onset shortness of breath. Elevated troponins. COVID and influenza negative. EKG incomplete left bundle branch which is new. DDimer positive. Chest CTA was negative for pulmonary embolism but did show congestive changes with pulmonary edema and pleural effusions. No chest pain however she is a diabetic and he may very well have had a cardiac event. She was given a therapeutic dose of Lovenox and aspirin. Troponin was 0.77 and now trending down. Cardiology was consulted. Check Echo. Continue low dose Lasix IV. Wean O2 as tolerated. Change to oral Lasix tomorrow. Potassium is low again; she is refusing oral replacement. Will replace IV. Apnea link noted showing AHI 35 and RI 38. She will need outpatient sleep study. No evidence of COPD exacerbation. Glucose noted. A1c 8.5. Continue current insulin regiment. Adjust if >200. Start PT/OT. Add empagliflozin for DM and pulmonary edema/CHF. Change Lovenox? Continue ASA. Subjective Date/time seen: 06/16/22 14:28 Interval history: 56yo female with COPD, CAD and DM here for SOB. Patietn slept poorly last night. SOB better today. No CP. Exam Narrative: AF 97.7 110/69 80 12 95% 1L Gen - NARD Chest - few basilar rhonchi o/w clear CV - RRR S1/S2; Tele showing PVCs Abd - Soft, NT/ND, Positive BS Ext - No pedal edema. left rocker bottom foot. Right BKA Psych - Nml mood and affect Skin - Warm and dry Objective Data Vital Signs Vital Signs: Vital Signs - 24 hr 06/15/22 14:29 06/15/22 14:30 06/15/22 14:31 Temperature Pulse Rate 104 H 105 H Respiratory Rate 25 H 19 Blood Pressure Pulse Oximetry 98 Pulse Oximetry [Digit-Finger] 97 Oxygen Delivery Oxygen Flow Rate 06/15/22 14:45 06/15/22 14:46 06/15/22 14:47 Temperature Pulse Rate 101 H 100 94 Respiratory Rate 18 21 H 16 Blood Pressure 118/71 Pulse Oximetry Pulse Oximetry [Digit-Finger] Oxygen Delivery Oxygen Flow Rate 06/15/22 15:00 06/15/22 15:01 06/15/22 15:15 Temperature Pulse Rate 98 104 H 101 H Respiratory Rate 14 16 16 Blood Pressure 134/79 Pulse Oximetry Pulse Oximetry [Digit-Finger] Oxygen Delivery Oxygen Flow Rate 06/15/22 15:30 06/15/22 15:55 06/15/22 16:03 Temperature Pulse Rate 98 99 Respiratory Rate 17 15 Blood Pressure Pulse Oximetry 100 Pulse Oximetry [Digit-Finger] Oxygen Delivery Oxygen Flow Rate 06/15/22 16:15 06/15/22 16:30 06/15/22 17:10 Temperature 97.8 F Pulse Rate 97 94 Respiratory Rate 18 20 Blood Pressure 144/76 H 120/63 Pulse Oximetry 98 100 100 Pulse Oximetry [Digit-Finger] Oxygen Delivery Oxygen Flow Rate 06/15/22 17:12 06/15/22 18:00 06/15/22 18:30 Temperature Pulse Rate 101 H Respiratory Rate Blood Pressure Pulse Oximetry 95 98 Pulse Oximetry [Digit-Finger] Oxygen Delivery Nasal Cannula Room Air Oxygen Flow Rate 1 06/15/22 19:38 06/15/22 20:00 06/15/22 20:00 Temperature 97 F L Pulse Rate 98 101 H Respiratory Rate 16 Blood Pressure 103/55 L Pulse Oximetry 98 98 Pulse Oximetry [Digit-Fin
--- NOTE | 2022-06-16 14:49 | PM.CNCAR ---
Assessment and Plan Assessment and plan (1) Acute on chronic diastolic CHF (congestive heart failure): Code(s): I50.33 - Acute on chronic diastolic (congestive) heart failure Status: Acute Assessment and Plan: Patient admitted with acute CHF; carries a history of CHF although she denies knowing of any CHF. Probably diastolic CHF, rule out an ischemic component. Continue IV diuretics Daily BMP Hypokalemic; being repleted. Patient does not like oral potassium; might add spironolactone Agree with Jardiance Echo BP soft; will try low-dose Entresto if affordable follow blood pressure.. (2) Elevated troponin: Code(s): R77.8 - Other specified abnormalities of plasma proteins Status: Acute Assessment and Plan: Patient had elevated troponins and complained of chest tightness. EKG not very remarkable Currently on full-dose Lovenox Will check a Lexiscan tomorrow; if large area of ischemia at least consider cardiac catheterization here or follow-up with Dr. Low for consideration of invasive approach. (3) Coronary artery disease: Code(s): I25.10 - Atherosclerotic heart disease of [place] coronary artery without angina pectoris Status: Acute Assessment and Plan: History of CAD in a probable Left anterior descending stent several years ago. Takes Repatha Stopped aspirin due to GI upset Resume anti-platelet therapy with clopidogrel (4) Peripheral arterial disease: Code(s): I73.9 - Peripheral vascular disease, unspecified Status: Acute Assessment and Plan: History of bilateral iliac stents. Vascular disease of both the periphery and coronary suggest a high risk of future cardiovascular events Resume clopidogrel, since the patient is having GI issues aspirin. History of Present Illness History of Present Illness Consult date/time: 06/16/22 14:49 Reason For Visit: CHF Narrative: Tiff Vaughn is a 56 y.o. female whom I was asked to see at the request of KATHLEEN Matson for my advice and opinion regarding her elevated troponin, in consultation. The patient has a history of CAD, P 80, AFib, CHF, COPD, hypertension, hyperlipidemia and diabetes. Her usual probation agent is Dr. Jayson Low and she has been seen by Dr. Santos Sanford, both of [facility]. Patient was hospitalized in March for nausea and vomiting, altered mental status, due to UTI and discharged to rehab common later to home. She is readmitted with shortness of breath and CHF. The patient states that she has had occasional episodes shortness of breath with activity associated with some chest tightness. She was in her normal state of health over the weekend but yesterday morning around 730 she woke up short of breath and got panicky because of her dyspnea. She also felt some tightness and pushing on her chest. EMS brought her to the emergency room and she was on 2-3 L of oxygen initially, with a heart rate of 92 and a blood pressure 118/72. She has been diuresed and is feeling well. She has occasional edema. She stopped taking her aspirin because it was causing GI upset. Dr. Low stopped her clopidogrel while back. She has a history of CAD and a stent, possibly the Left anterior descending (?the maker ) about 4 years ago in [place]. She denies any history of CHF although that is in Dr. Sanford's note. She is statin intolerant but takes Repatha at home. She has had a loop recorder placed about 4.5 years ago. Blood pressures been well controlled, without medications. Review of Systems Constitutional: Constitutional: Denies fever(s) Eyes: Eyes: Reports no additional eye complaints ENT: Denies epistaxis Cardiovascular: Cardiovascular: Reports chest pain, Reports pedal edema, Denies lightheadedness, Denies palpitations and Reports dyspnea Respiratory: Respiratory: Denies chest congestion, Reports dyspnea and Reports dyspnea on exertion Gastrointestinal:
[2022-06-16] MEDS: KCL 20 MEQ/SW 100 ML 100 ML 50 MEQ IVPB (17:54)
[2022-06-16] MEDS: ASPIRIN 81 MG ENTERIC TABLET PO (17:56)
[2022-06-16 19:33] LABS: Glucose Point of Care 158 mg/dl (65-105)
[2022-06-16] MEDS: SACUBITRIL/VALSARTAN 12-13 MG TABLET 1 TAB PO (21:03)
[2022-06-16] MEDS: HYDROcodone/acetaminophen (*CRX) 5-325 MG TABLET 1 TAB PO (23:10)
[2022-06-17] VITALS (17 sets, daily range): BP systolic 92–114; BP diastolic 52–61; PULSE 72–102; RESP 14–22; TEMP 35.9–36.8; O2SAT 93–99
[2022-06-17 00:34] LABS: Glucose Point of Care 186 mg/dl (65-105)
[2022-06-17] MEDS: SODIUM CHLORIDE 0.9% IV 500 ML IV CONT (01:41)
[2022-06-17 05:07] LABS: Albumin Level 3.8 g/dL (3.5-5.1); Anion Gap 9 mmol/L (8-16); Blood Urea Nitrogen 14 mg/dL (7-17); Calcium 8.1 mg/dL (8.4-10.2); Carbon Dioxide 25 mmol/L (22-30); Chloride 103 mmol/L (98-107); Estimated CRCL calculation 67 ml/min; Estimated Glomerular Filt Rate > 60; Glucose 158 mg/dL (65-110); Phosphorus 4.5 mg/dL (2.5-4.5); Potassium 3.2 mmol/L (3.4-5.0); Sodium 137 mmol/L (137-145)
--- NOTE | 2022-06-17 08:00 | EST_ITS ---
Patient Info Name: Tiff Vaughn Age: 56 years : 1965 Gender: Female Ht: 68 in Wt: 177 lbs BSA: 1.98 m2 HR: 89 bpm BP: 84 / 60 mmHg Heart Rhythm: Sinus Rhythm Technical Quality: Excellent Exam Date: 06/17/2022 11:37 AM Exam Location: [facility] Stress Patient Status: Outpatient Admit Date: 06/15/2022 Staff Ordering Physician: Florecita Campbell MD Attending Provider: Conor Severino MD Exercise Technologist: Estella Bravo CT Exercise Physician: Florecita Campbell MD Exam Type: CA stress beba w NM Study Info Indications I25.10 - Atherosclerotic heart disease of [place] coronary artery without angina pectoris I50.20 - Unspecified systolic (congestive) heart failure A regadenoson stress test was performed. Summary 1. No abnormal ST-T wave changes with lexiscan. 2. Nuclear test results to follow. Protocol: Lexiscan Stress ECG Details Stage: REST Duration (min): 4 min : 55 sec HR (bpm): 90 SBP (mmHg): 84 DBP (mmHg): 60 Stage: REST Duration (min): 49 min : 33 sec HR (bpm): 80 SBP (mmHg): 84 DBP (mmHg): 60 Stage: STAGE 1 Duration (min): 0 min : 59 sec HR (bpm): 77 SBP (mmHg): 105 DBP (mmHg): 59 Stage: RECOVERY Duration (min): 1 min : 0 sec HR (bpm): 98 SBP (mmHg): 105 DBP (mmHg): 59 Stage: RECOVERY Duration (min): 2 min : 0 sec HR (bpm): 94 SBP (mmHg): 105 DBP (mmHg): 59 Stage: RECOVERY Duration (min): 3 min : 0 sec HR (bpm): 94 SBP (mmHg): 97 DBP (mmHg): 58 Stage: RECOVERY Duration (min): 3 min : 13 sec HR (bpm): 94 SBP (mmHg): 97 DBP (mmHg): 58 Rest HR: 80 bpm Peak HR: 98 bpm Rest Sys BP: 84 mmHg Peak Sys BP: 105 mmHg Max Pred HR: 162 bpm % Max Pred HR: 60 % Target HR: 138 bpm Max RPP: 10,290 bpm*mmHg BP Response: Normal blood pressure response Termination Reason: Completed protocol Cardiac Symptoms: None Total Time: 1 min : 0 sec Rest Dial BP: 60 mmHg Peak Dial BP: 59 mmHg Total Dose: 0.4 mg Resting ECG Normal sinus rhythm. Minor resting ST/T wave changes. Stress ECG No abnormal ST/T wave changes with exercise. Arrhythmias None. Report Signatures
[2022-06-17] MEDS: ENOXAPARIN 80 MG/0.8 ML SYRINGE SUB-Q (09:09)
[2022-06-17] MEDS: DULoxetine HCL 30 MG CAPSULE.DR 60 MG PO ×2 (09:13→21:29)
[2022-06-17] MEDS: ASPIRIN 81 MG ENTERIC TABLET PO (09:14)
[2022-06-17] MEDS: SACUBITRIL/VALSARTAN 12-13 MG TABLET 1 TAB PO (09:14)
[2022-06-17] MEDS: ALPRAZolam (*CRX) 0.5 MG TABLET PO ×2 (09:14→23:31)
[2022-06-17] MEDS: PREGABALIN (*CRX) 50 MG CAPSULE 100 MG PO ×2 (09:14→21:29)
[2022-06-17] MEDS: INSULIN GLARGINE (*BKC) 100 UNITS/ML 20 UNITS SUB-Q ×2 (09:15→18:56)
--- NOTE | 2022-06-17 09:28 | PM.IMPN ---
Progress Note: A&P Time Spent With Patient Time: 06/15/22 The patient presented to the emergency department earlier this morning via EMS from home for evaluation of sudden onset shortness of breath which wakened her from sleep this morning. Workup in the emergency department was significant for an elevated troponin with a finding of a new incomplete left bundle branch block on EKG.? CTA of the chest was negative for pulmonary embolism but did show congestive changes with pulmonary edema and pleural effusions. She has not had any chest pain whatsoever however she is a diabetic and he may very well have had a cardiac event. She will be given a therapeutic dose of Lovenox and aspirin and she is being admitted to IMU for further monitoring. Troponins will be trended to peak. Cardiology has been consulted for their opinion. Continue cautious IV diuresis with close monitoring of volume status, renal function, and electrolytes.? Her potassium was low initially and will be replaced. There is no evidence of COPD exacerbation on exam today. Apnea link ordered for screening that she may very well have underlying sleep apnea. Her labs were reviewed and they are stable. Continue basal insulin and initiate sliding scale insulin, Accu-Cheks, and hypoglycemic protocol. The rest of her home medications will be reviewed and resumed as appropriate. 06/16/22 Patient presents so the onset shortness of breath.? Elevated troponins.? COVID and influenza negative. EKG incomplete left bundle branch which is new. DDimer positive. Chest CTA was negative for pulmonary embolism but did show congestive changes with pulmonary edema and pleural effusions. No chest pain however she is a diabetic and he may very well have had a cardiac event. She was given a therapeutic dose of Lovenox and aspirin. Troponin was 0.77 and now trending down. Cardiology was consulted. Check Echo. Continue low dose Lasix IV. Wean O2 as tolerated. Change to oral Lasix tomorrow. Potassium is low again; she is refusing oral replacement. Will replace IV. Apnea link noted showing AHI 35 and RI 38. She will need outpatient sleep study. No evidence of COPD exacerbation. Glucose noted. A1c 8.5. Continue current insulin regiment. Adjust if >200. Start PT/OT. Add empagliflozin for DM and pulmonary edema/CHF. Change Lovenox? Continue ASA. 06/17/22 Lexiscan today w large area of ischemia cardiac catheterization tomorrow plavix continued, pt intolerant to ASA cont LMWH 1mg/kg cath depending on beba results low normotensive 99/59 on Entresto defer POC to Dr Campbell Subjective Date/time seen: 06/17/22 09:28 pt ok without complaints , per cardiology card cath tomorrow Review of Systems Review of Systems: All systems reviewed & are unremarkable except as noted in HPI and below Exam Narrative: GeN: NAD AAOx3 cooperative Chest - no use of accessory muscles symmetric chest rise CV - RRR S1/S2 Abd - Soft, NT/ND, Positive BS Ext - No pedal edema. left rocker bottom foot. Right BKA Skin - Warm and dry Objective Data Vital Signs Vital Signs: Vital Signs - 24 hr 06/16/22 10:00 06/16/22 12:00 06/16/22 12:35 Temperature 97.7 F Pulse Rate 85 92 80 Respiratory Rate 12 Blood Pressure 110/69 Pulse Oximetry 96 Oxygen Delivery Oxygen Flow Rate 06/16/22 12:35 06/16/22 16:00 06/16/22 14:00 Temperature 97.8 F Pulse Rate 80 84 96 Respiratory Rate 12 Blood Pressure 121/68 Pulse Oximetry 95 96 Oxygen Delivery Nasal Cannula Oxygen Flow Rate 1 06/16/22 16:00 06/16/22 16:00 06/16/22 20:00 Temperature 98.0 F Pulse Rate 97 107 H Respiratory Rate 18 Blood Pressure 133/64 Pulse Oximetry 95 98 Oxygen Delivery Room Air Oxygen Flow Rate 06/16/22 20:00 06/16/22 20:00 06/16/22 21:59 Temperature Pulse Rate 77 94 Respiratory Rate Blood Pressure Pulse Oximetry 95 Oxygen Delivery Room Air Oxygen Flow Rate 06/16/22 23:50 06/17/22 00:00 06/17/22
--- NOTE | 2022-06-17 10:53 | PCPTNOTE ---
Attempted to see pt. for physical therapy evaluation. Pt. currently off floor for testing. Nursing aware.
--- NOTE | 2022-06-17 11:02 | PCOTNOTE ---
Attempted to see pt. for occupational therapy evaluation. Pt. currently off floor for testing. Nursing aware.
[2022-06-17 11:25] LABS: Glucose Point of Care 102 mg/dl (65-105)
[2022-06-17 13:41] LABS: Glucose Point of Care 120 mg/dl (65-105)
[2022-06-17] MEDS: INSULIN ASPART (*BKC) 100 UNITS/ML 10 UNITS SUB-Q ×2 (14:13→18:57)
[2022-06-17] MEDS: EMPAGLIFLOZIN 10 MG TABLET PO (14:13)
--- NOTE | 2022-06-17 15:48 | PCPTNOTE ---
Attempted PT evaluation, pt refused stating she is too tired. RN aware. Will follow.
--- NOTE | 2022-06-17 16:09 | PCOTNOTE ---
Attempted to see pt for occupational therapy evaluation at 15:50, pt. refused due to being too tired
[2022-06-17 16:23] LABS: Glucose Point of Care 211 mg/dl (65-105)
--- NOTE | 2022-06-17 17:16 | PC.NURSE ---
Left message for Dr. Mann at 1650 regarding blood pressure 92/52, await call back and further instructions. Will continue to monitor closely
--- NOTE | 2022-06-17 17:22 | PM.PNCARD ---
Progress Note: A&P Assessment and Plan (1) Acute systolic (congestive) heart failure: Code(s): I50.21 - Acute systolic (congestive) heart failure Status: Acute Assessment and Plan: Patient admitted with acute systolic CHF New cardiomyopathy with a decline of ejection fraction, down to 30%. Suspect an ischemic component in view of abnormal stress test. Euvolemic; change lasix to po Started on Jardiance Echo BP soft; started on low-dose Entresto; follow blood pressure. See if she can tolerate low-dose metoprolol (2) Elevated troponin: Code(s): R77.8 - Other specified abnormalities of plasma proteins Status: Acute Assessment and Plan: Patient had elevated troponins and complained of chest tightness. EKG not very remarkable Currently on full-dose Lovenox Lexiscan was abnormal showing of very large area of fixed defect; her history is not consistent with this. No known prior circumflex disease. New drop in LV function. I suspect the fixed defect is severe ischemia and may have provoked her episode of CHF on admission. Recommend proceeding with cardiac catheterization. The problem however is that she has difficult vascular access. discontinue Lovenox. Discussed with Dr. Salinas who will evaluate the patient in the morning. Will leave NPO. Repeat EKG (3) Coronary artery disease: Code(s): I25.10 - Atherosclerotic heart disease of [place] coronary artery without angina pectoris Status: Acute Assessment and Plan: History of CAD in a probable Left anterior descending stent several years ago. Takes Repatha Stopped aspirin due to GI upset, but pt willing to renew Resume anti-platelet therapy with clopidogrel (4) Hypokalemia: Code(s): E87.6 - Hypokalemia Status: Acute Assessment and Plan: Potassium is low again on IV diuretics. Supplement; patient prefers IV to p.o.. Daily BMP, a.m. magnesium level (5) Peripheral arterial disease: Code(s): I73.9 - Peripheral vascular disease, unspecified Status: Acute Assessment and Plan: History of bilateral iliac stents. Vascular disease of both the periphery and coronary suggest a high risk of future cardiovascular events Resume clopidogrel, since the patient is having GI issues w/ aspirin. Subjective Date/time seen: Follow-up for CHF, elevated troponins , chest pressure. Peak troponin 0.779. History of Left anterior descending stent in 2018. Echo December 2021 showed EF 55%. History of bilateral iliac stents, right BKA, severe infrapopliteal disease. History of PAF. History of Syncope and hypotension in the past requiring midodrine; has a loop recorder.. Usual surface room shop optician is Dr. Hellen Durant. Date of service 06/17/22 17:22: no further chest pain, breathing is much better. Very low-dose Entresto started yesterday; patient's blood pressure now is sometimes in the 90s. Lexiscan: 1. Large severe nonreversible perfusion defect involving the anterolateral, inferolateral and inferior schaefer of the left ventricle consistent with likely infarct of the circumflex coronary artery. No reversible ischemia. 2. Mild to moderately decreased left ventricular ejection fraction measuring 30%. Review of Systems Review of Systems: Sleepy today. Constitutional: Constitutional: Denies fever(s) Eyes: Eyes: Reports no additional eye complaints ENT: Denies epistaxis Cardiovascular: Cardiovascular: Denies chest pain, Denies pedal edema, Denies lightheadedness and Denies dyspnea Respiratory: Respiratory: Denies chest congestion and Denies dyspnea Gastrointestinal: Gastrointestinal: Denies abdominal pain and Denies hematochezia Genitourinary: Genitourinary: Denies hematuria Musculoskeletal: Musculoskeletal: Reports no additional musculoskeletal complaints Integumentary/Breasts: Skin/Breast: Reports system reviewed and no additional complaints, except as docu Neurologic: R
[2022-06-17] MEDS: INSULIN ASPART (*BKC) 100 UNITS/ML SUB-Q (18:57)
[2022-06-17 20:21] LABS: Glucose Point of Care 132 mg/dl (65-105)
[2022-06-17] MEDS: POTASSIUM CHLORIDE 20 MEQ PACKET (FOR LIQUID) 80 MEQ PO (22:07)
[2022-06-17] MEDS: HYDROcodone/acetaminophen (*CRX) 5-325 MG TABLET 1 TAB PO (23:31)
[2022-06-18] VITALS (34 sets, daily range): BP systolic 81–114; BP diastolic 40–72; PULSE 74–99; RESP 8–22; TEMP 35.9–36.9; O2SAT 93–100
[2022-06-18 05:30] LABS: Anion Gap 8 mmol/L (8-16); Blood Urea Nitrogen 16 mg/dL (7-17); Calcium 8.5 mg/dL (8.4-10.2); Carbon Dioxide 26 mmol/L (22-30); Chloride 106 mmol/L (98-107); Estimated CRCL calculation 60 ml/min; Estimated Glomerular Filt Rate > 60; Glucose 152 mg/dL (65-110); Magnesium 2.2 mg/dL (1.6-2.3); Potassium 4.4 mmol/L (3.4-5.0); Sodium 140 mmol/L (137-145)
[2022-06-18 07:53] LABS: Glucose Point of Care 101 mg/dl (65-105)
[2022-06-18] MEDS: PREGABALIN (*CRX) 50 MG CAPSULE 100 MG PO ×2 (09:04→23:14)
[2022-06-18] MEDS: SACUBITRIL/VALSARTAN 12-13 MG TABLET 1 TAB PO (09:04)
[2022-06-18] MEDS: METOPROLOL SUCCINATE EXT REL 12.5 MG TABCR PO (09:04)
--- NOTE | 2022-06-18 09:04 | PM.PNCARD ---
Progress Note: A&P Assessment and Plan (1) Acute systolic (congestive) heart failure: Code(s): I50.21 - Acute systolic (congestive) heart failure Status: Acute Assessment and Plan: Patient admitted with acute systolic CHF New cardiomyopathy with a decline of ejection fraction, down to 30%. Suspect an ischemic component in view of abnormal stress test. Euvolemic; change lasix to po Started on Jardiance Echo pending Started on low-dose Entresto; follow blood pressure. Started on Toprol 12.5mg (2) Elevated troponin: Code(s): R77.8 - Other specified abnormalities of plasma proteins Status: Acute Assessment and Plan: Patient had elevated troponins and complained of chest tightness. EKG not very remarkable Received full dose Lovenox Lexiscan was abnormal showing large area of fixed defect with infarction in the LCX territory. No known prior circumflex disease. New drop in LV function. Patient seen by Dr. Campbell yesterday and Dr. Campbell recommended cardiac cath in light of the abnormal stress test. This morning, I discussed cardiac cath with the patient including indications, risks vs benefits, and alternate management options. I did discuss with the patient that given her known history of vascular disease, access may be an issue. Will try to obtain at least diagnostic images today. If patient does need PCI, then would recommend a trial of DAPT and make sure she can tolerate DAPT prior to proceeding with PCI (patient had issues with GI intolerance in the past with ASA). I explained to the patient that [place] sleep lab technician has limited resources, and if she needed complex intervention/high-risk PCI, then we would not perform that here and that would have to be done at a bigger sleep lab technician center. (3) Coronary artery disease: Code(s): I25.10 - Atherosclerotic heart disease of [place] coronary artery without angina pectoris Status: Acute Assessment and Plan: History of CAD in a probable Left anterior descending stent several years ago. Takes Repatha Had issues with GI intolerance in the past with ASA, will restart ASA here and see how patient tolerates. Resume anti-platelet therapy with clopidogrel (4) Peripheral arterial disease: Code(s): I73.9 - Peripheral vascular disease, unspecified Status: Acute Assessment and Plan: History of bilateral iliac stents. Vascular disease of both the periphery and coronary suggest a high risk of future cardiovascular events Resume clopidogrel. Continue ASA. Time Spent With Patient Time with patient: 15 - 25 minutes Subjective Date/time seen: 06/18/22 09:04 Interval history: Reason for visit: Cardiomyopathy No acute events overnight. Patient reports some mild pain in her mid abdomen. Denies chest pain. Denies shortness of breath. Laying flat this AM without orthopnea. Review of Systems Review of Systems: 8-point ROS obtained. Negative, unless stated in HPI. Exam Const: General: comfortable and no acute distress HENMT: Mouth: Yes moist mucous membranes Eyes: General: appearance normal, both eyes and all related structures Neck: Neck: supple and no JVD Resp: Effort & Inspection: normal respiratory effort Auscultation: clear to auscultation bilaterally Cardio: Rate: regular rate Rhythm: regular rhythm Heart sounds: no murmurs GI: GI Palp: Yes Soft to palpation and No Tenderness to palpation present (GI) Skin: General skin exam: normal color Neuro: Speech: normal speech Extrem: General: no edema Other: R BKA Psych: Mental Status: mental status grossly normal Objective Data Vital Signs Vital Signs: Vital Signs - 24 hr 06/17/22 10:00 06/17/22 11:56 06/17/22 13:32 Temperature 36.8 C Pulse Rate 82 80 Respiratory Rate 14 Blood Pressure 114/58 L Pulse Oximetry 93 97 Oxygen Delivery Room Air 06/17/22 12:00 06/17/22 12:00 06/17/22 14:00 Temperature Pulse Rat
[2022-06-18] MEDS: DULoxetine HCL 30 MG CAPSULE.DR 60 MG PO ×2 (09:05→23:15)
[2022-06-18] MEDS: ASPIRIN 81 MG ENTERIC TABLET PO (09:05)
--- NOTE | 2022-06-18 09:18 | WPDMODSED ---
Moderate Sedation Note-Pt Data Patient Data Diagnosis: Cardiomyopathy Present Complaint: Cardiomyopathy Procedure to be performed/Plan: Coronary angiography, [facility] Allergies Allergy/AdvReac Type Severity Reaction Status Date / Time propofol Allergy Agitated Verified 05/02/22 01:11 aspirin AdvReac Mild Gastrointestinal Verified 06/16/22 15:43 Upset Statins AdvReac Intermediate Myalgias Uncoded 06/16/22 15:43 Home Medications Medication Instructions Recorded Confirmed Type insulin glargine 100 unit/mL (3 20 unit subcut BIDWM 03/30/22 06/15/22 History mL) subcutaneous pen (Basaglar KwikPen U-100 Insulin) insulin lispro 100 unit/mL 10 unit subcut TIDWM 03/30/22 06/15/22 History subcutaneous solution (Admelog U-100 Insulin lispro) semaglutide 0.25 mg or 0.5 mg (2 1 mg subcut WEEKLY 03/30/22 06/15/22 History mg/1.5 mL) subcutaneous pen injector (Ozempic) hydrocodone 5 mg-acetaminophen 325 1 tablet PO Q8H PRN pain #6 tabs 04/03/22 06/15/22 Rx mg tablet alprazolam 0.5 mg tablet 0.5 mg PO BID PRN Anxiety 06/15/22 06/15/22 History duloxetine 30 mg capsule,delayed 60 mg PO BID 06/15/22 06/15/22 History release (Cymbalta) evolocumab 140 mg/mL subcutaneous mg subcut 06/15/22 06/15/22 History pen injector (Bety Friedman) pregabalin 50 mg capsule (Lyrica) 100 mg PO Q12H 06/15/22 06/15/22 History Current Medications: Active Medications Hydrocodone Bitart/Acetaminophen (Hydrocodone/Acetaminophen (*Crx) 5-325 Mg Tablet) 1 tab PO Q8H PRN PRN Reason: pain Last Admin: 06/17/22 23:31 Dose: 1 tab Alprazolam (Alprazolam (*Crx) 0.5 Mg Tablet) 0.5 mg PO BID PRN PRN Reason: Anxiety Last Admin: 06/17/22 23:31 Dose: 0.5 mg Aspirin (Aspirin 81 Mg Enteric Tablet) 81 mg PO QAM LIBBY Last Admin: 06/18/22 09:05 Dose: 81 mg Dextrose (Dextrose 50% 25 Gm/50 Ml Syringe) 12.5 gm IV PUSH PRN PRN; Protocol PRN Reason: Hypoglycemia Duloxetine HCl (Duloxetine Hcl 30 Mg Capsule.Dr) 60 mg PO Q12HR [facility] Last Admin: 06/18/22 09:05 Dose: 60 mg Empagliflozin (Empagliflozin 10 Mg Tablet) 10 mg PO DAILY [facility] Last Admin: 06/18/22 09:04 Dose: Not Given Glucagon (Glucagon For Inj 1 Mg Vial) 1 mg IM PRN PRN; Protocol PRN Reason: Hypoglycemia Glucose (Glucose Oral Gel 15 Gm Of Glucse In 37.5 Gm Tube) 15 gm PO PRN PRN; Protocol PRN Reason: Hypoglycemia Dextrose (Dextrose 5% 1,000 Ml) 1,000 mls @ 100 mls/hr IVPB PRN PRN; Protocol PRN Reason: Hypoglycemia Insulin Aspart (Insulin Aspart (*Bkc) 100 Units/Ml) 3 - 6 units SUB-Q TIDWM [facility]; Protocol Last Admin: 06/18/22 09:03 Dose: Not Given Insulin Aspart (Insulin Aspart (*Bkc) 100 Units/Ml) 10 units SUB-Q TIDWM [facility] Stop: 07/16/22 07:59 Last Admin: 06/18/22 09:03 Dose: Not Given Insulin Glargine (Insulin Glargine (*Bkc) 100 Units/Ml) 20 units SUB-Q BIDWM [facility] Last Admin: 06/18/22 09:03 Dose: Not Given Metoprolol Succinate (Metoprolol Succinate Ext Rel 12.5 Mg Tabcr) 12.5 mg PO QAM [facility] Last Admin: 06/18/22 09:04 Dose: 12.5 mg Perflutren Lipid Microsphere (Perflutren Lipid Microspheres 1.5 Ml Vial Diluted To 10 Ml Total Volume) 0 ml IV PUSH ONCE PRN; Protocol PRN Reason: adequate visualization Stop: 06/19/22 17:23 Pregabalin (Pregabalin (*Crx) 50 Mg Capsule) 100 mg PO Q12HR [facility] Last Admin: 06/18/22 09:04 Dose: 100 mg Sacubitril/Valsartan (Sacubitril/Valsartan 12-13 Mg Tablet) 1 tab PO Q12HR [facility] Last Admin: 11/03/22 09:04 Dose: 1 tab Sedation/Anesthesia: No previous sedation/anesthesia problems (including family history). [facility] Past Medical History Medical History Anxiety Charcot's joint of foot in type 2 diabetes mellitus Of the right foot Chickenpox Chronic obstructive pulmonary disease Coronary artery disease Left anterior descending stent 01/2019. Usual marketing lead is Dr. 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 Depression Diabetes mellitus with insulin therapy Diabetic peripheral
--- NOTE | 2022-06-18 09:50 | PC.NURSE ---
To radiographer cardiac catheterization via bed with telemetry. labeling machine operator nurses at bedside.
--- NOTE | 2022-06-18 10:24 | PCOTNOTE ---
Attempted to see pt. for occupational therapy evaluation. Pt. away from room at this time for coronary angiography. nursing aware. Following
--- NOTE | 2022-06-18 10:29 | PCPTNOTE ---
Attempted to see pt. for physical therapy evaluation. Pt. away from room at this time for coronary angiography. nursing aware. Following
--- NOTE | 2022-06-18 10:53 | PM.IMPN ---
Progress Note: A&P Assessment and Plan (1) Acute systolic (congestive) heart failure: Code(s): I50.21 - Acute systolic (congestive) heart failure Status: Acute (2) Peripheral arterial disease: Code(s): I73.9 - Peripheral vascular disease, unspecified Status: Acute (3) Elevated troponin: Code(s): R77.8 - Other specified abnormalities of plasma proteins Status: Acute (4) Coronary artery disease: Code(s): I25.10 - Atherosclerotic heart disease of [place] coronary artery without angina pectoris Status: Acute (5) Pulmonary edema: Code(s): J81.1 - Chronic pulmonary edema Status: Acute (6) Shortness of breath: Code(s): R06.02 - Shortness of breath Status: Acute (7) Chronic obstructive pulmonary disease: Code(s): J44.9 - Chronic obstructive pulmonary disease, unspecified Status: Acute (8) Anxiety and depression: Code(s): F41.9 - Anxiety disorder, unspecified; F32.A - Depression, unspecified Status: Acute (9) Diabetes mellitus: Code(s): E11.9 - Type 2 diabetes mellitus without complications Status: Chronic (10) Hyperlipidemia: Code(s): E78.5 - Hyperlipidemia, unspecified Status: Chronic (11) Coronary artery disease: Qualifiers: Coronary Disease-Associated Artery/Lesion type: [place] artery [place] vs. transplanted heart: unspecified whether [place] or transplanted heart Code(s): I25.10 - Atherosclerotic heart disease of [place] coronary artery without angina pectoris Status: Chronic (12) Below knee amputation: Code(s): S88.119A - Complete traumatic amputation at level between knee and ankle, unspecified lower leg, initial encounter Status: Acute (13) Hypokalemia: Code(s): E87.6 - Hypokalemia Status: Acute Plan 06/15/22 The patient presented to the emergency department earlier this morning via EMS from home for evaluation of sudden onset shortness of breath which wakened her from sleep this morning. Workup in the emergency department was significant for an elevated troponin with a finding of a new incomplete left bundle branch block on EKG.? CTA of the chest was negative for pulmonary embolism but did show congestive changes with pulmonary edema and pleural effusions. She has not had any chest pain whatsoever however she is a diabetic and he may very well have had a cardiac event. She will be given a therapeutic dose of Lovenox and aspirin and she is being admitted to IMU for further monitoring. Troponins will be trended to peak. Cardiology has been consulted for their opinion. Continue cautious IV diuresis with close monitoring of volume status, renal function, and electrolytes.? Her potassium was low initially and will be replaced. There is no evidence of COPD exacerbation on exam today. Apnea link ordered for screening that she may very well have underlying sleep apnea. Her labs were reviewed and they are stable. Continue basal insulin and initiate sliding scale insulin, Accu-Cheks, and hypoglycemic protocol. The rest of her home medications will be reviewed and resumed as appropriate. 06/16/22 Patient presents so the onset shortness of breath.? Elevated troponins.? COVID and influenza negative. EKG incomplete left bundle branch which is new. DDimer positive. Chest CTA was negative for pulmonary embolism but did show congestive changes with pulmonary edema and pleural effusions. No chest pain however she is a diabetic and he may very well have had a cardiac event. She was given a therapeutic dose of Lovenox and aspirin. Troponin was 0.77 and now trending down. Cardiology was consulted. Check Echo. Continue low dose Lasix IV. Wean O2 as tolerated. Change to oral Lasix tomorrow. Potassium is low again; she is refusing oral replacement. Will replace IV. Apnea link noted showing AHI 35 and RI 38. She will need outpatient sleep study. No evidence of COPD exacerbation. Glucose noted. A
--- NOTE | 2022-06-18 10:59 | WPDCARDPROC ---
Cardiac Cath Procedure Note Date of procedure:: 06/18/22 Performing physician:: CATHETERIZATION LABORATORY REPORT Procedure Date: 06/18/2022 High School Football Coach: Micheline Salinas M.D., [facility]? Referring Physician: Dr. Campbell ? Anesthesia: Versed and Fentanyl were ordered and given in my presence at 10:12, procedure ended at 10:50. Supervision of nurse monitored moderate sedation with Versed and Fentanyl was provided for 38 minutes. Total of Versed 3mg and Fentanyl 75mcg were admistered by the Brokerage Clerk RN. Pre-op Diagnosis: New diagnosis of cardiomyopathy Post-op Diagnosis: Patent LAD stent Diffuse LCX/OM disease Obstructive disease of a heavily calcified RCA Left ventricular end-diastolic pressure of 22mmHg Procedure(s): Left heart catheterization with coronary angiography Access Site: Right radial artery Right common femoral artery Brief History and Clinical Indications: Patient is a 56-year-old female with a history of CAD s/p prior PCI, peripheral arterial disease s/p bilateral iliac stenting, history of R BKA who is referred for [facility] for ischemic evaluation in the setting of new diagnosis of cardiomyopathy and abnormal stress test. All risks, benefits and alternatives to left heart catheterization with or without percutaneous coronary intervention was discussed at length with the patient. Risk of complications including but not limited to bleeding, infection, arrhythmia, stroke, worsening kidney function, blood loss, groin hematoma, limb loss, emergency coronary artery bypass grafting, and even were discussed with the patient and all questions were answered. The patient understood and wished to proceed. Time out called, patient name, date of , medical record number, allergies, procedure performed, identify High School Football Coach, patient and staff member concurred with accurate data, procedure carried on. Findings: LEFT HEART CATHETERIZATION FINDINGS: 1. Left main: The distal left main coronary artery has a 30-40% stenosis. 2. Left anterior descending: Stent visualized in the proximal-mid LAD that is patent. The LAD has mild diffuse disease without any significant obstructive angiographic disease. There is a diagonal branch that has a high proximal origin that appears to be subtotally occluded in its ostium; late contrast filling is seen in the mid and distal portions of the branch. There is a second diagonal branch which is occluded. Remaining diagonal branches are diffusely diseased. 3. Left circumflex: The left circumflex artery and the main marginal branches are of small caliber and diffusely diseased. 4. Right coronary artery: The RCA is the dominant vessel. The RCA has diffuse heavy calcifications throughout the proximal, mid and distal portions of the vessel. The proximal-mid RCA has mild diffuse disease. There is a focal hazy heavily calcified lesion in the mid RCA. Distal to this, there is an 80% obstructive hazy calcific lesion in the distal RCA. The RPLV and RPDA have diffuse disease. 5. Left ventricle: A. End-diastolic pressure 22 mmHg. B. LV gram deferred. C. No significant gradient across aortic valve on catheter pullback. Description of Procedure: Informed consent signed and placed in the chart. Patient transferred to laboratory equipment installer room. Prepped and draped in usual sterile fashion. 2% lidocaine injected subcutaneously in right wrist area. 22-gauge venipuncture catheter used to access the right radial artery with the Seldinger technique. 6-FR slender sheath placed in right radial artery. Nitroglycerine and Cardene was given intraarterial through the sheath. Attempted to advance Versacore wire into aorta, but unable to advance. Radial access aborted, femoral access pursued. 2% lidocaine in right groin area. Micropuncture needle used to access right common femoral artery with Seldinger technique under fluoroscopic guidance. J wire advanced, micropuncture cannula placed. Right iliofemoral angiogram perf
--- NOTE | 2022-06-18 11:18 | SUR.PHASEII ---
bp 86/45. second one last [address] Salinas & informed her that we just pulled the sheath. no new orders at this time.
[2022-06-18] MEDS: SODIUM CHLORIDE 0.9% IV 1,000 ML 125 ML (11:44)
--- NOTE | 2022-06-18 11:57 | SUR.PHASEII ---
Verified with Dr Salinas - no need for iv fluids.
[2022-06-18] MEDS: FUROSEMIDE 40 MG TABLET PO (14:28)
[2022-06-18] MEDS: CLOPIDOGREL BISULFATE 75 MG TABLET PO (14:28)
--- NOTE | 2022-06-18 16:22 | ECG_ITS ---
Measurements Intervals [place] Rate: 89 P: 77 AR: 166 QRS: -34 QRSD: 96 T: 82 QT: 409 QTc: 498 Interpretive Statements SINUS RHYTHM LEFT AXIS DEVIATION INCOMPLETE LEFT BUNDLE BRANCH BLOCK BORDERLINE ST-T WAVE ABNORMALITY- ANT/HIGH LAT LEADS BORDERLINE ECG COMPARED TO ECG 06/15/2022 09:14:10 LEFT-AXIS DEVIATION NOW PRESENT Electronically Signed On 06-18-2022 19:03:54 CDT by Mike Bernardo D.O.
[2022-06-18 16:44] LABS: Glucose Point of Care 148 mg/dl (65-105)
[2022-06-18] MEDS: PERFLUTREN LIPID MICROSPHERES 1.5 ML VIAL DILUTED TO 10 ML TOTAL VOLUME IV PUSH (16:45)
[2022-06-18] MEDS: INSULIN GLARGINE (*BKC) 100 UNITS/ML 20 UNITS SUB-Q (17:11)
[2022-06-18] MEDS: INSULIN ASPART (*BKC) 100 UNITS/ML 10 UNITS SUB-Q (17:13)
--- NOTE | 2022-06-18 17:23 | ECHO_ITS ---
Patient Info Name: Tiff Vaughn Age: 56 years : 1965 Gender: Female Ht: 68 in Wt: 171 lbs BSA: 1.94 m2 HR: 76 bpm BP: 96 / 56 mmHg Heart Rhythm: Sinus Rhythm Technical Quality: Fair Exam Date: 06/18/2022 4:00 PM Exam Location: [facility] Exam Room: 200 Patient Status: Outpatient Admit Date: 06/15/2022 Staff Ordering Physician: Florecita Campbell MD Equity Sales Assistant: Adamaris Roberts RDCS Attending Provider: Conor Severino MD Referring Physician: Adrian NEWSOME; Exam Type: CA echo dop color flow w con Study Info Indications - cardiomyopathy cad chf Complete two-dimensional, color flow and Doppler transthoracic echocardiogram is performed with contrast to opacify the left ventricle and to improve the deliniation of the left ventricle endocardial borders. Contrast/Agitated Saline Contrast/Ag. Saline: Definity Amount: 2.00 ml Administered By: Adamaris Roberts [facility] Existing IV Access: Yes Summary 1. Technically difficult exam definity contrast used to enhance visualization. 2. Left ventricular enlargement with severely reduced systolic function. 3. Akinesis of the posterior and lateral schaefer. 4. Sclerotic aortic valve with minimal amount of aortic regurgitation. 5. Trivial amount of tricuspid valve insufficiency. Left Ventricle Left ventricular chamber dimension is moderately enlarged. Left ventricular systolic function is severely reduced, estimated at 25-30%. The left ventricular diastolic function is grade I diastolic dysfunction. Right Ventricle Right ventricular chamber dimension is normal. Left Atria Left atrial chamber dimension is mildly enlarged. Right Atria Right atrial chamber dimension is normal. Aortic Valve The aortic valve is trileaflet. There is mild aortic valve sclerosis. There is trace aortic valve regurgitation. Pulmonic Valve The pulmonic valve is not well visualized. Mitral Valve The mitral valve has normal leaflets. There is trace mitral valve regurgitation. Tricuspid Valve The tricuspid valve leaflets are normal. Pericardium/Pleural The pericardium appears normal. Aorta The aortic root size at the sinus of Valsalva is normal. Left Ventricular Outflow Tract Name Value Normal LVOT 2D LVOT Diameter 1.98 cm LVOT Doppler LVOT Peak Gradient 5 mmHg LVOT Mean Gradient 3 mmHg LVOT VTI 19.81 cm LVOT VTI/AV VTI Ratio 0.85 LVOT Stroke Volume 61.08 ml LVOT CO 14.27 l/min LVOT CI 7.35 L/min/m2 Pulmonic Valve Name Value Normal PV Doppler PV Peak Gradient 2 mmHg Mitral Valve
--- NOTE | 2022-06-18 18:35 | PC.NURSE ---
Pt breathing rapidly stating she feels like something is sitting on her chest. Reports pain 02/22. Dr Burden notified. Advised to give nitro prn. Please see medication order. May give morphine 1 g x 1 dose prn.
[2022-06-18] MEDS: NITROGLYCERIN SL 0.4 MG TABLET SUBLINGUAL ×2 (18:40→18:45)
--- NOTE | 2022-06-18 18:50 | PC.NURSE ---
Pt given 2 doses of nitro. BP 63/40. Dr. Burden made aware. Pt to be transferred to ICU. Start 500 ml fluid bolus. Stat CBC. Repeat CBC in 3 hours. Stat EKG completed.
--- NOTE | 2022-06-18 19:06 | ECG_ITS ---
Measurements Intervals [place] Rate: 93 P: 78 MN: 175 QRS: -34 QRSD: 89 T: 78 QT: 388 QTc: 485 Interpretive Statements SINUS RHYTHM LEFT AXIS DEVIATION POSSIBLE LEFT ATRIAL ENLARGEMENT BORDERLINE ST-T WAVE ABNORMALITY- ANT/HIGH LAT LEADS BORDERLINE ECG COMPARED TO ECG 06/18/2022 16:34:29 NO SIGNIFICANT CHANGES Electronically Signed On 06-22-2022 11:56:36 OIL PROGRAM COMPLIANCE SPECIALIST by Mike Bernardo D.O.
[2022-06-18] MEDS: SODIUM CHLORIDE 0.9% IV 500 ML IV CONT (19:53)
[2022-06-18 20:09] LABS: Hematocrit 41.7 % (37.0-47.0); Mean Corpuscular HGB Conc 31.2 g/dl (32-36); Mean Corpuscular Hemoglobin 26.3 pg (26-34); Mean Corpuscular Volume 84.2 fl (80-100); Mean Platelet Volume 11.6 fl (7.4-10.4); Platelet Count Result 256 k/mm3 (150-375); Red Blood Count 4.95 M/mm3 (4.2-5.4); Red Cell Distribution Width 13.7 % (11.5-14.5); White Blood Count 7.5 K/mm3 (4.5-10.0)
--- NOTE | 2022-06-18 21:09 | PM.EVENT ---
Event Note Event Note Event Note: I evaluated the patient for a central line. We had a long discussion about it. The patient was concerned about it initially. Her blood pressure had been 80/50 at that time. Patient was initially refusing a femoral line. I used ultrasound to look for a vein and I showed her where I would be placing the central line. However the patient spoke to her children about her condition and became very upset and her blood pressure came back up. So she has a map of 70 for now. So at this time I am not going to place a central line. However I did look for of vein that could be used via ultrasound. I will check on her often and determine if she needs a central line.
--- NOTE | 2022-06-18 22:56 | PC.NURSE ---
This patient, Tiff Vaughn, was received from [facility] [place] on 06/18/22 at 2015. Patient oriented to unit policies and routines. Report received from DES Holt.
[2022-06-18 23:10] LABS: Glucose Point of Care 192 mg/dl (65-105)
[2022-06-18 23:19] LABS: Basophils Absolute Auto 0.1 K/mm3 (0.0-0.1); Basophils Percent Auto 0.7 % (0.2-1.2); Eosinophils Absolute Auto 0.3 K/mm3 (0-0.3); Eosinophils Percent Auto 3.6 % (0-4.4); Hemoglobin 13.4 g/dL (12.0-15.0); Immature Granulocyte Absolute 0.02 K/mm3 (0.00-0.031); Immature Granulocyte Percent A 0.2 % (0-0.5); Lymphocytes Absolute Auto 1.72 K/mm3 (0.9-3.2); Lymphocytes Percent Auto 20.6 % (18.3-44.2); Mean Corpuscular HGB Conc 31.2 g/dl (32-36); Mean Corpuscular Hemoglobin 26.2 pg (26-34); Mean Corpuscular Volume 84.1 fl (80-100); Mean Platelet Volume 11.5 fl (7.4-10.4); Monocytes Absolute Auto 0.4 K/mm3 (0.1-0.6); Monocytes Percent Auto 4.8 % (2.6-8.5); Neutrophils Absolute Auto 5.8 K/mm3 (1.3-6.7); Neutrophils Percent Auto 70.1 % (45.5-73.1); Platelet Count Result 281 k/mm3 (150-375); Red Blood Count 5.11 M/mm3 (4.2-5.4); Red Cell Distribution Width 13.7 % (11.5-14.5); White Blood Count 8.3 K/mm3 (4.5-10.0)
[2022-06-19] VITALS (27 sets, daily range): BP systolic 90–127; BP diastolic 50–80; PULSE 73–107; RESP 7–20; TEMP 36.4–36.7; O2SAT 93–100
[2022-06-19] MEDS: HYDROcodone/acetaminophen (*CRX) 5-325 MG TABLET 1 TAB PO (00:05)
[2022-06-19 04:12] LABS: Basophils Absolute Auto 0.1 K/mm3 (0.0-0.1); Basophils Percent Auto 0.8 % (0.2-1.2); Eosinophils Absolute Auto 0.3 K/mm3 (0-0.3); Eosinophils Percent Auto 3.8 % (0-4.4); Hematocrit 41.4 % (37.0-47.0); Hemoglobin 12.9 g/dL (12.0-15.0); Immature Granulocyte Absolute 0.02 K/mm3 (0.00-0.031); Immature Granulocyte Percent A 0.3 % (0-0.5); Lymphocytes Absolute Auto 2.15 K/mm3 (0.9-3.2); Lymphocytes Percent Auto 27.4 % (18.3-44.2); Mean Corpuscular HGB Conc 31.2 g/dl (32-36); Mean Corpuscular Hemoglobin 26.1 pg (26-34); Mean Corpuscular Volume 83.6 fl (80-100); Mean Platelet Volume 11.1 fl (7.4-10.4); Monocytes Absolute Auto 0.5 K/mm3 (0.1-0.6); Monocytes Percent Auto 6.3 % (2.6-8.5); Neutrophils Absolute Auto 4.8 K/mm3 (1.3-6.7); Neutrophils Percent Auto 61.4 % (45.5-73.1); Platelet Count Result 268 k/mm3 (150-375); Red Blood Count 4.95 M/mm3 (4.2-5.4); Red Cell Distribution Width 13.5 % (11.5-14.5); White Blood Count 7.8 K/mm3 (4.5-10.0)
[2022-06-19 04:26] LABS: CRP 0.6 mg/dL (<1.0); Creatine Kinase 70 U/L (30-135); Magnesium 2.1 mg/dL (1.6-2.3)
[2022-06-19] MEDS: DICLOFENAC SODIUM 1% 100 GM GEL (*BKC) 1 APPLIC TOPICAL ×5 (04:51→20:51)
[2022-06-19 07:32] LABS: Glucose Point of Care 143 mg/dl (65-105)
--- NOTE | 2022-06-19 08:49 | WPDCNINT ---
Assessment and Plan Assessment and plan (1) Hypotension: Code(s): I95.9 - Hypotension, unspecified Status: Acute Assessment and Plan: Patient had a cardiac catheterization on 06/18/2022, started on Lasix for elevated LVEDP along with Entresto -patient received 500 mL IV fluids on the medical floor and transferred to the ICU since that her blood pressures have been stable -will give additional a albumin this morning and Hespan -patient had good urine output with negative fluid balance -all these could have led to low blood pressures, gently hydrate the patient as her EF is only 30% with pulmonary edema on chest x-ray and chest CT scan. Continue to monitor blood pressure (2) Acute systolic (congestive) heart failure: Code(s): I50.21 - Acute systolic (congestive) heart failure Status: Acute Assessment and Plan: Acute systolic heart failure with a decline in ejection fraction down to 30%. -will decrease dose of Lasix if blood pressures tolerate -will discuss with Cardiology as patient may not tolerate Entresto given her blood pressures have been low in the past also. (3) Coronary artery disease: Code(s): I25.10 - Atherosclerotic heart disease of [place] coronary artery without angina pectoris Status: Acute Assessment and Plan: Diffuse coronary artery disease in left circumflex/OM and RCA, according to the antenna design engineer if PCI is pursued it would be high risk and patient will be moved to a tertiary center for this. -cardiology following the patient -continue aspirin, clopidogrel (4) Chronic obstructive pulmonary disease: Code(s): J44.9 - Chronic obstructive pulmonary disease, unspecified Status: Acute Assessment and Plan: Will add bronchodilator (5) Diabetes mellitus: Code(s): E11.9 - Type 2 diabetes mellitus without complications Status: Chronic Assessment and Plan: Continue Accu-Cheks and sliding scale -continue Jardiance Plan DVT prophylaxis: Will order Lovenox Stress ulcer prophylaxis: Not applicable Nutrition: Onto the night Code Status: Do not resuscitate Critical Care Time Spent: 44 minutes Due to a high probability of clinically significant, life threatening deterioration, the patient required my highest level of preparedness to intervene emergently and I personally spent this critical care time directly and personally managing the patient. This critical care time included obtaining a history; examining the patient; pulse oximetry; ordering and review of studies; arranging urgent treatment with development of a management plan; evaluation of patient's response to treatment; frequent reassessment; and discussions with other providers. It was exclusive of separately billable procedures and treating other patients and teaching time. Please see Assessment and Plan section and the rest of the note for further information on patient assessment and treatment Armed Security Officer Consult Note Consult date: 06/19/22 Reason for consult: Hypotension could be related to medications HPI: Tiff Vaughn is a 56 year old female past medical history of anxiety diabetes, COPD, CAD, peripheral neuropathy, hypercholesterolemia presented the ED on 06/15/2022 with complains of shortness of breath, patient was found to be in acute congestive heart failure, EF has declined to 30%. Underwent a cardiac catheterization on 06/18/2022, was found to have patent LAD stent, diffuse left circumflex/OM disease, obstructive disease of a heavily calcified RCA, LVEDP was 22 mmHg, patient was started on Lasix, Entresto, dual antiplatelet therapy with aspirin and clopidogrel. On 06/18/2022 post cardiac catheterization patient dropped her blood pressures, was given 500 mL IV fluid bolus which improved her blood pressures, as patient's blood pressures have been stable through the night. Patient was transferred to the ICU further management Patient seen and examined in the ICU, is awak
[2022-06-19] MEDS: hetaSTARCH 6%/NACL 500 ML 250 ML IV CONT (09:26)
[2022-06-19] MEDS: INSULIN GLARGINE (*BKC) 100 UNITS/ML 20 UNITS SUB-Q ×2 (09:37→20:57)
[2022-06-19] MEDS: ENOXAPARIN 40 MG/0.4 ML SYRINGE SUB-Q (09:38)
--- NOTE | 2022-06-19 09:54 | PM.PNCARD ---
Progress Note: A&P Assessment and Plan (1) Acute on chronic diastolic CHF (congestive heart failure): Code(s): I50.33 - Acute on chronic diastolic (congestive) heart failure Status: Acute (2) Coronary artery disease: Code(s): I25.10 - Atherosclerotic heart disease of [place] coronary artery without angina pectoris Status: Acute (3) Peripheral arterial disease: Code(s): I73.9 - Peripheral vascular disease, unspecified Status: Acute Plan 56-year-old woman with extensive coronary and peripheral vascular disease. She has ischemic left ventricular dysfunction and is now back on dual anti-platelet therapy. Attempts to initiate medical therapy for her LV dysfunction have been met with unacceptable hypotension. Her beta-gisela and Entresto are now on hold. Systolic blood pressure is in the low 90s this morning. At this time I would continue her dual anti-platelet therapy. She has been placed on a heparin infusion. I do not have a cardiac indication for this at this time. PCI is not felt to be necessary at this time. Her established water resource project manager can consider higher risk PCI of her distal right coronary disease at a larger the facility following discharge from [place]. Zay Garcia MD [facility] Subjective Date/time seen: date of service:06/19/22 09:54 Interval history: Follow-up visit in this 56-year-old woman with: Apparently long history of severe diffuse peripheral and coronary vascular disease. Patient was admitted to this hospital with complaints of some dyspnea and she normally receives her cardiac care elsewhere. Catheterization done yesterday here demonstrates diffuse coronary artery disease with patent proximal LAD stent. Circumflex marginal branches are diffusely disease as well as the distal right coronary artery. Disease is not amenable to PCI at least PCI at this hospital. Patient is resting comfortably in bed when I came in to see her upon awakening appears to be a bad mood this morning and is argumentative of primary complaints is the need for frequent phlebotomy Exam Const: Other: chronically ill-appearing woman flat in bed no distress with her eyes covered no active chest pain or dyspnea HENMT: Mouth: Yes moist mucous membranes Eyes: Sclera: sclerae normal Neck: Other: carotid pulses are intact bilaterally no obvious JVD Resp: Auscultation: clear to auscultation bilaterally and diminished lung sounds Cardio: Rate: regular rate Rhythm: regular rhythm Other: patient has a soft systolic murmur that does not radiate from the left sternal border GI: GI Palp: Yes Soft to palpation Skin: General skin exam: normal color Neuro: Other: alert and oriented x3 Extrem: Other: status post right lower extremity amputation Objective Data Vital Signs Vital Signs: Vital Signs - 24 hr 06/18/22 11:15 06/18/22 11:20 06/18/22 11:45 Temperature Pulse Rate 83 85 85 Respiratory Rate 12 8 L 14 Blood Pressure 87/44 L 103/51 L Pulse Oximetry 99 100 100 Oxygen Delivery Room Air Room Air Room Air Oxygen Flow Rate 06/18/22 11:25 06/18/22 11:30 06/18/22 11:35 Temperature Pulse Rate 81 78 84 Respiratory Rate 12 13 12 Blood Pressure 87/60 L 102/61 108/61 Pulse Oximetry 100 100 99 Oxygen Delivery Room Air Room Air Room Air Oxygen Flow Rate 06/18/22 11:40 06/18/22 12:00 06/18/22 12:15 Temperature Pulse Rate 80 84 77 Respiratory Rate 12 12 13 Blood Pressure 81/55 L 105/66 106/72 Pulse Oximetry 98 96 97 Oxygen Delivery Room Air Room Air Room Air Oxygen Flow Rate 06/18/22 12:30 06/18/22 12:45 06/18/22 13:00 Temperature Pulse Rate 81 78 77 Respiratory Rate 12 14 14 Blood Pressure 99/53 L 106/66 103/62 Pulse Oximetry 93 94 95 Oxygen Delivery Room Air Room Air Room Air Oxygen Flow Rate 06/18/22 14:12 06/18/22 15:04 06/18/22 14:00 Temperature 35.9 C L 36.0 C L Pulse Rate 74 89 80 Respiratory Rate 20 18 [place]
[2022-06-19 10:12] LABS: Alanine Aminotransferase 19 U/L (6-35); Albumin Level 3.9 g/dL (3.5-5.1); Alkaline Phosphatase 88 U/L (38-126); Anion Gap 11 mmol/L (8-16); Aspartate Amino Transferase 21 U/L (14-36); Bilirubin,Total 0.5 mg/dL (0.2-1.3); Blood Urea Nitrogen 13 mg/dL (7-17); Calcium 8.8 mg/dL (8.4-10.2); Carbon Dioxide 25 mmol/L (22-30); Chloride 104 mmol/L (98-107); Estimated CRCL calculation 76 ml/min; Estimated Glomerular Filt Rate > 60; Glucose 107 mg/dL (65-110); Potassium 4.2 mmol/L (3.4-5.0); Sodium 140 mmol/L (137-145)
--- NOTE | 2022-06-19 11:56 | PC.NURSE ---
Patient refusing morning PO doses of medications when offered at 0938 AM. Patient is tearful and explains she does not wish to take medications this early in the morning and would like to be left alone so she can rest. Education provided about importance of taking prescribed medications. Patient continues to refuse.
--- NOTE | 2022-06-19 11:59 | PC.NURSE ---
PO medications re-offered at 1026 AM. Patient states that she is still tired and does not feel up to taking medications at this time. Patient states she will let this nurse know when she is ready to take her medications. MD Carr updated and aware. Patient again educated on importance of taking medications.
[2022-06-19 12:20] LABS: Glucose Point of Care 79 mg/dl (65-105)
[2022-06-19] MEDS: ALBUMIN HUMAN 25% 25 GM/100 ML 100 ML IVPB ×3 (12:40→23:39)
--- NOTE | 2022-06-19 12:45 | PC.NURSE ---
Nurse present at bedside at 1240. PO medications offered again to patient. Patient continuos to refuse. Patient states she is not ready to take her medications and would like to go back to sleep. Education provided on importance of taking medications. Patient still refuses.
[2022-06-19 13:39] LABS: Glucose Point of Care 86 mg/dl (65-105)
--- NOTE | 2022-06-19 13:42 | PCPTNOTE ---
Attempted PT evaluation, pt refused stating I'm cold. Pt reported she will do therapy tomorrow. RN aware. Will Follow
--- NOTE | 2022-06-19 14:47 | PC.NURSE ---
Report given to DES Childs with the IMU department. Patient to move to IMU department room 211.
[2022-06-19] MEDS: PREGABALIN (*CRX) 50 MG CAPSULE 100 MG PO ×2 (14:52→20:51)
[2022-06-19] MEDS: CLOPIDOGREL BISULFATE 75 MG TABLET PO (14:52)
[2022-06-19] MEDS: ASPIRIN 81 MG ENTERIC TABLET PO (14:53)
[2022-06-19] MEDS: EMPAGLIFLOZIN 10 MG TABLET PO (14:53)
[2022-06-19] MEDS: DULoxetine HCL 30 MG CAPSULE.DR 60 MG PO ×2 (14:53→20:53)
--- NOTE | 2022-06-19 14:54 | PC.NURSE ---
Nurse in room at 1450. Patient is agreeable to taking PO medications at this time. medications administered.
[2022-06-19] MEDS: ALBUTEROL SULFATE NEB 2.5 MG/3 ML INH INHALATION ×2 (15:05→21:19)
[2022-06-19] MEDS: IPRATROPIUM BR 0.02% INH SOLN 0.5 MG/2.5 ML VIAL INHALATION ×2 (15:05→21:19)
--- NOTE | 2022-06-19 15:37 | PC.NURSE ---
This patient, Tiff Vaughn, was received from ICU-11 on 06/19/22 at 1529. Patient/family oriented to unit policies and routines. Report received from Naz Fermin RN.
[2022-06-19 17:20] LABS: Glucose Point of Care 147 mg/dl (65-105)
[2022-06-19] MEDS: INSULIN ASPART (*BKC) 100 UNITS/ML 10 UNITS SUB-Q (18:08)
--- NOTE | 2022-06-19 18:20 | PCOTNOTE ---
Pt. declined to participate in therapy on this date. Agreeable to participate tomorrow. Nursing aware.
[2022-06-19 20:24] LABS: Glucose Point of Care 169 mg/dl (65-105)
[2022-06-19] MEDS: ALPRAZolam (*CRX) 0.5 MG TABLET PO (20:52)
[2022-06-19] MEDS: ACETAMINOPHEN 325 MG TABLET 650 MG PO (23:39)
[2022-06-20] VITALS (19 sets, daily range): BP systolic 96–112; BP diastolic 44–63; PULSE 81–108; RESP 15–20; TEMP 36.2–36.6; O2SAT 97–100
[2022-06-20] MEDS: IPRATROPIUM BR 0.02% INH SOLN 0.5 MG/2.5 ML VIAL INHALATION ×4 (03:55→20:50)
[2022-06-20] MEDS: ALBUTEROL SULFATE NEB 2.5 MG/3 ML INH INHALATION ×4 (03:55→20:52)
[2022-06-20] MEDS: ALBUMIN HUMAN 25% 25 GM/100 ML 100 ML IVPB (06:31)
[2022-06-20] MEDS: ASPIRIN 81 MG ENTERIC TABLET PO (08:19)
[2022-06-20 08:20] LABS: Glucose Point of Care 85 mg/dl (65-105)
[2022-06-20] MEDS: EMPAGLIFLOZIN 10 MG TABLET PO (08:20)
[2022-06-20] MEDS: ENOXAPARIN 40 MG/0.4 ML SYRINGE SUB-Q (08:20)
[2022-06-20] MEDS: CLOPIDOGREL BISULFATE 75 MG TABLET PO (08:20)
[2022-06-20] MEDS: DICLOFENAC SODIUM 1% 100 GM GEL (*BKC) 1 APPLIC TOPICAL ×2 (08:20→12:14)
[2022-06-20] MEDS: DULoxetine HCL 30 MG CAPSULE.DR 60 MG PO ×2 (08:20→21:45)
[2022-06-20] MEDS: PREGABALIN (*CRX) 50 MG CAPSULE 100 MG PO ×2 (08:23→21:35)
[2022-06-20] MEDS: INSULIN ASPART (*BKC) 100 UNITS/ML 10 UNITS SUB-Q (11:30)
[2022-06-20] MEDS: INSULIN ASPART (*BKC) 100 UNITS/ML SUB-Q ×2 (11:30→17:03)
[2022-06-20 11:34] LABS: Glucose Point of Care 320 mg/dl (65-105)
--- NOTE | 2022-06-20 11:56 | PM.IMPN ---
Progress Note: A&P Assessment and Plan (1) Hypotension: Code(s): I95.9 - Hypotension, unspecified Status: Acute Assessment and Plan: Patient had a cardiac catheterization on 06/18/2022, started on Lasix for elevated LVEDP along with Entresto Patient received 500 mL IV fluids on the medical floor and transferred to the ICU since that her blood pressures have been stable Received albumin and has pain in the ICU EF 30% with pulmonary edema on chest x-ray and chest CT Blood pressure low normal continue to monitor Lasix beta-gisela and Entresto on hold slowly needs to restart as tolerated looks euvolemic on exam currently (2) Acute systolic (congestive) heart failure: Code(s): I50.21 - Acute systolic (congestive) heart failure Status: Acute Assessment and Plan: Acute systolic heart failure with a decline in ejection fraction down to 30%. Diuresis as tolerated by blood pressure Planned for Entresto as tolerated In shoe medical therapy for LV dysfunction Entresto and beta-gisela on hold at this time Echo 06/18/2022 EF 25-30% grade 1 diastolic dysfunction no significant valvular abnormality Lexiscan was abnormal and with large area of fixed defect with infarction the LCX territory. (3) Coronary artery disease: Code(s): I25.10 - Atherosclerotic heart disease of [place] coronary artery without angina pectoris Status: Acute Assessment and Plan: Diffuse coronary artery disease in left circumflex/OM and RCA, according to the president financial institution if PCI is pursued it would be high risk and patient will be moved to a tertiary center for this. -cardiology following the patient -continue aspirin, clopidogrel (4) Chronic obstructive pulmonary disease: Code(s): J44.9 - Chronic obstructive pulmonary disease, unspecified Status: Acute Assessment and Plan: Continue bronchodilator (5) Diabetes mellitus: Code(s): E11.9 - Type 2 diabetes mellitus without complications Status: Chronic Assessment and Plan: Continue Accu-Cheks and sliding scale -continue Jardiance A1c 8.5 Plan Elevated troponin see above. EKG with new incomplete left bundle-branch block. CTA negative for PE showed congestive changes pulmonary edema and pleural effusions. Possible sleep apnea add billing noted with a it is at 35 an RI of 38. She will need outpatient sleep study. DVT prophylaxis: Lovenox Stress ulcer prophylaxis: Not applicable Nutrition: Onto the night Hyperlipidemia: Takes Repatha. Peripheral vascular disease with history of bilateral iliac stents Code Status: Do not resuscitate Subjective Date/time seen: 06/20/22 11:56 Interval history: 56yo female with COPD, CAD and DM here for SOB. Motor to the ICU yesterday. Chart reviewed Status post cardiac catheterization on 06/18/2022 states she is feeling well. Blood pressure reviewed. Denies chest pain shortness of breath. Review of Systems Review of Systems: All systems reviewed & are unremarkable except as noted in HPI and below Exam Narrative: General: Pleasant patient in no acute distress HEENT:? Pupils equal reactive, dry oral mucosa Neck:? Supple nontender Respiratory:? Coarse breath sounds bilaterally, adequate air entry, no wheeze Cardiac:? S1-S2 is normal, regular rate and rhythm Abdomen:? Soft, nontender, nondistended, normoactive bowel sounds Extremities:? Right BKA, rocker bottom foot on the left side, bilateral lower extremity edema Neuro:? Patient is awake, alert, answers to questions and follows simple commands Skin:? No lesions noted, warm and dry Psych:? Normal mentation and affect Objective Data Vital Signs Vital Signs: Vital Signs - 24 hr 06/19/22 12:00 06/19/22 12:45 06/19/22 12:00 Temperature 97.6 F Pulse Rate 89 88 Respiratory Rate 13 11 L Blood Pressure 106/63 99/67 L 106/63 Pulse Oximetry 99 Oxygen Delivery Oxygen Flow Rate 06/19/22 12:01 06/19/22 12:15 06/19/22
--- NOTE | 2022-06-20 13:18 | PM.PNCARD ---
Progress Note: A&P Assessment and Plan (1) Acute on chronic diastolic CHF (congestive heart failure): Code(s): I50.33 - Acute on chronic diastolic (congestive) heart failure Status: Acute Assessment and Plan: Entresto and beta-gisela on hold secondary to relative hypotension. BP stable at this time but she has failed to tolerate re-initiation attempts. Patient appears to be reasonably euvolemic, Lasix held at this time. Anticipate she will require re-initiation of diuretic therapy. She remains on Jardiance. Need to review labs. Patient has been resistant apparently to blood draws. (2) Coronary artery disease: Code(s): I25.10 - Atherosclerotic heart disease of [place] coronary artery without angina pectoris Status: Acute Assessment and Plan: Severe diffuse disease. She may follow up with her power cleaner operator as an outpatient with any consideration for attempted intervention at outside facility better equipped for her needs and high risk PCI. Continue dual antiplatelet therapy with aspirin and clopidogrel. DVT prophylaxis. (3) Peripheral arterial disease: Code(s): I73.9 - Peripheral vascular disease, unspecified Status: Acute Assessment and Plan: Chronic, extensive. Subjective Date/time seen: Date of service: 06/20/22 13:18 Interval history: Follow-up visit in this 56-year-old woman with: Apparently long history of severe diffuse peripheral and coronary vascular disease. Patient was admitted to this hospital with complaints of some dyspnea and she normally receives her cardiac care elsewhere. Catheterization done yesterday here demonstrates diffuse coronary artery disease with patent proximal LAD stent. Circumflex marginal branches are diffusely disease as well as the distal right coronary artery. Disease is not amenable to PCI at least PCI at this hospital. Patient states she is doing okay, complains of having to have blood drawn. [place] a skip her pause and her heart beat overnight on couple of occasions no chest pain or shortness of breath. Eating fairly well. Patient states she was told she had AFib I do not see atrial fibrillation on telemetry review or other SVT overnight. She is currently in sinus rhythm. Review of Systems Review of Systems: Remainder of review of systems otherwise negative. Constitutional: Constitutional: Denies fever(s) Eyes: Eyes: Reports no additional eye complaints ENT: Denies epistaxis Cardiovascular: Cardiovascular: Denies chest pain, Denies pedal edema, Denies lightheadedness, Denies palpitations, Denies dyspnea and Reports dyspnea on exertion Respiratory: Respiratory: Denies chest congestion, Denies dyspnea and Reports dyspnea on exertion Gastrointestinal: Gastrointestinal: Denies abdominal pain and Denies hematochezia Genitourinary: Genitourinary: Denies hematuria Musculoskeletal: Musculoskeletal: Reports no additional musculoskeletal complaints and Reports arthralgias Integumentary/Breasts: Skin/Breast: Reports system reviewed and no additional complaints, except as docu Neurologic: Reports system reviewed and no additional complaints, except as documented, Denies behavioral changes and Denies confusion Psychiatric: Psychiatric: Denies behavioral changes and Denies confusion Endocrine: Endocrine: Denies palpitations Exam Narrative: Older female in bed, alert, pleasant, no distress, joking around a bit. Const: General: cooperative, comfortable and no acute distress; No confusion Orientation/consciousness: oriented to person, patient oriented x3 and No confusion Other: chronically ill-appearing woman flat in bed no distress with her eyes covered no active chest pain or dyspnea HENMT: Mouth: Yes moist mucous membranes Other: Edentulous Eyes: General: appearance normal, both eyes and all related structures Sclera: sclerae normal EOM: EOMs intact bilaterally Neck: Neck: supple and no JVD Thyroid: thyroid n
[2022-06-20 16:43] LABS: Glucose Point of Care 100 mg/dl (65-105)
[2022-06-20 20:07] LABS: Glucose Point of Care 161 mg/dl (65-105)
[2022-06-20] MEDS: INSULIN GLARGINE (*BKC) 100 UNITS/ML 15 UNITS SUB-Q (21:39)
[2022-06-21] VITALS (18 sets, daily range): BP systolic 69–111; BP diastolic 43–68; PULSE 87–108; RESP 14–20; TEMP 36.2–36.8; O2SAT 97–100
[2022-06-21] MEDS: ALPRAZolam (*CRX) 0.5 MG TABLET PO (00:07)
--- NOTE | 2022-06-21 01:04 | PC.NURSE ---
Daylight Savings Time For Daylight Savings Time Ending in the Fall - Clocks are moved back. For Daylight Savings Time Beginning in the Spring - Clocks are moved ahead. For [facility], the time of change occurs at 0200 hrs. Time is taken from the weather observer. This entry on the patient's chart recognizes the change in time reflected during documentation. Example: 2 entries for vital signs may be charted for 0200 hrs.
[2022-06-21 05:42] LABS: Basophils Absolute Auto 0.1 K/mm3 (0.0-0.1); Basophils Percent Auto 0.8 % (0.2-1.2); Eosinophils Absolute Auto 0.2 K/mm3 (0-0.3); Eosinophils Percent Auto 2.8 % (0-4.4); Hematocrit 38.9 % (37.0-47.0); Hemoglobin 12.1 g/dL (12.0-15.0); Immature Granulocyte Absolute 0.01 K/mm3 (0.00-0.031); Immature Granulocyte Percent A 0.1 % (0-0.5); Lymphocytes Absolute Auto 2.62 K/mm3 (0.9-3.2); Lymphocytes Percent Auto 36.8 % (18.3-44.2); Mean Corpuscular HGB Conc 31.1 g/dl (32-36); Mean Corpuscular Volume 83.5 fl (80-100); Mean Platelet Volume 11.4 fl (7.4-10.4); Monocytes Absolute Auto 0.5 K/mm3 (0.1-0.6); Monocytes Percent Auto 6.5 % (2.6-8.5); Neutrophils Absolute Auto 3.8 K/mm3 (1.3-6.7); Platelet Count Result 225 k/mm3 (150-375); Red Blood Count 4.66 M/mm3 (4.2-5.4); Red Cell Distribution Width 13.6 % (11.5-14.5); White Blood Count 7.1 K/mm3 (4.5-10.0)
[2022-06-21 05:51] LABS: Alanine Aminotransferase 17 U/L (6-35); Albumin Level 4.6 g/dL (3.5-5.1); Alkaline Phosphatase 62 U/L (38-126); Anion Gap 13 mmol/L (8-16); Aspartate Amino Transferase 24 U/L (14-36); Bilirubin,Total 0.6 mg/dL (0.2-1.3); Blood Urea Nitrogen 19 mg/dL (7-17); Calcium 8.8 mg/dL (8.4-10.2); Carbon Dioxide 23 mmol/L (22-30); Chloride 105 mmol/L (98-107); Estimated CRCL calculation 67 ml/min; Estimated Glomerular Filt Rate > 60; Glucose 127 mg/dL (65-110); Magnesium 2.3 mg/dL (1.6-2.3); Sodium 141 mmol/L (137-145)
[2022-06-21 08:27] LABS: Glucose Point of Care 111 mg/dl (65-105)
[2022-06-21] MEDS: PREGABALIN (*CRX) 50 MG CAPSULE 100 MG PO ×2 (08:52→20:41)
[2022-06-21] MEDS: DULoxetine HCL 30 MG CAPSULE.DR 60 MG PO ×2 (08:53→20:42)
[2022-06-21] MEDS: ASPIRIN 81 MG ENTERIC TABLET PO (08:53)
[2022-06-21] MEDS: ENOXAPARIN 40 MG/0.4 ML SYRINGE SUB-Q (08:53)
[2022-06-21] MEDS: EMPAGLIFLOZIN 10 MG TABLET PO (08:53)
[2022-06-21] MEDS: CLOPIDOGREL BISULFATE 75 MG TABLET PO (08:53)
[2022-06-21] MEDS: INSULIN GLARGINE (*BKC) 100 UNITS/ML 15 UNITS SUB-Q (08:53)
[2022-06-21] MEDS: ALBUTEROL SULFATE NEB 2.5 MG/3 ML INH INHALATION ×3 (08:54→20:43)
[2022-06-21] MEDS: IPRATROPIUM BR 0.02% INH SOLN 0.5 MG/2.5 ML VIAL INHALATION ×3 (08:54→20:43)
[2022-06-21] MEDS: INSULIN ASPART (*BKC) 100 UNITS/ML SUB-Q ×2 (08:54→12:52)
--- NOTE | 2022-06-21 11:41 | PM.IMPN ---
Progress Note: A&P Assessment and Plan (1) Hypotension: Code(s): I95.9 - Hypotension, unspecified Status: Acute Assessment and Plan: Patient had a cardiac catheterization on 06/18/2022, started on Lasix for elevated LVEDP along with Entresto Patient received 500 mL IV fluids on the medical floor and transferred to the ICU since that her blood pressures have been stable Received albumin and has pain in the ICU EF 30% with pulmonary edema on chest x-ray and chest CT Blood pressure low normal continue to monitor Lasix beta-gisela and Entresto on hold slowly needs to restart as tolerated looks euvolemic on exam currently may be start bb and acei/arb small dose (2) Acute systolic (congestive) heart failure: Code(s): I50.21 - Acute systolic (congestive) heart failure Status: Acute Assessment and Plan: Acute systolic heart failure with a decline in ejection fraction down to 30%. Diuresis as tolerated by blood pressure Planned for Entresto as tolerated In shoe medical therapy for LV dysfunction Entresto and beta-giseal on hold at this time Echo 06/18/2022 EF 25-30% grade 1 diastolic dysfunction no significant valvular abnormality Lexiscan was abnormal and with large area of fixed defect with infarction the LCX territory. (3) Coronary artery disease: Code(s): I25.10 - Atherosclerotic heart disease of [place] coronary artery without angina pectoris Status: Acute Assessment and Plan: Diffuse coronary artery disease in left circumflex/OM and RCA, according to the forensic economist if PCI is pursued it would be high risk and patient will be moved to a tertiary center for this. -cardiology following the patient -continue aspirin, clopidogrel (4) Chronic obstructive pulmonary disease: Code(s): J44.9 - Chronic obstructive pulmonary disease, unspecified Status: Acute Assessment and Plan: Continue bronchodilator (5) Diabetes mellitus: Code(s): E11.9 - Type 2 diabetes mellitus without complications Status: Chronic Assessment and Plan: Continue Accu-Cheks and sliding scale -continue Jardiance A1c 8.5 Plan Elevated troponin see above. EKG with new incomplete left bundle-branch block. CTA negative for PE showed congestive changes pulmonary edema and pleural effusions. Possible sleep apnearecent apnea linek test with AHI 35 an RI of 38. She will need outpatient sleep study. DVT prophylaxis: Lovenox Stress ulcer prophylaxis: Not applicable Nutrition: Onto the night Hyperlipidemia: Takes Repatha. Peripheral vascular disease with history of bilateral iliac stents Code Status: Do not resuscitate Subjective Date/time seen: 06/21/22 11:41 Interval history: 56yo female with COPD, CAD and DM here for SOB. Motor to the ICU yesterday. Chart reviewed Status post cardiac catheterization on 06/18/2022 no overnight events. bp trend reviewed. telemetry reviewed. eulalia toscano sob, chest pain. discussed with cardiology. Review of Systems Review of Systems: All systems reviewed & are unremarkable except as noted in HPI and below Exam Narrative: General: Pleasant patient in no acute distress HEENT:? Pupils equal reactive, dry oral mucosa Neck:? Supple nontender Respiratory:? Coarse breath sounds bilaterally, adequate air entry, no wheeze Cardiac:? S1-S2 is normal, regular rate and rhythm Abdomen:? Soft, nontender, nondistended, normoactive bowel sounds Extremities:? Right BKA, rocker bottom foot on the left side, bilateral lower extremity edema Neuro:? Patient is awake, alert, answers to questions and follows simple commands Skin:? No lesions noted, warm and dry Psych:? Normal mentation and affect Objective Data Vital Signs Vital Signs: Vital Signs - 24 hr 06/20/22 14:00 06/20/22 16:00 06/20/22 16:00 Temperature 97.9 F Pulse Rate 99 99 Respiratory Rate 18 Blood Pressure 96/56 L Pulse Oximetry 100 Oxygen Delivery Room Air 06/20/22
[2022-06-21 12:02] LABS: Glucose Point of Care 167 mg/dl (65-105)
--- NOTE | 2022-06-21 12:37 | PM.PNCARD ---
Progress Note: A&P Assessment and Plan (1) Acute on chronic diastolic CHF (congestive heart failure): Code(s): I50.33 - Acute on chronic diastolic (congestive) heart failure Status: Acute Assessment and Plan: Entresto and beta-gisela on hold secondary to relative hypotension. BP stable at this time but she has failed to tolerate re-initiation attempts. Patient appears to be reasonably euvolemic, Lasix held at this time. Anticipate she will require re-initiation of diuretic therapy. She remains on Jardiance. Need to review labs. Patient has been resistant apparently to blood draws. resume Toprol XL 12.5 mg daily in reserve tolerance. Would like to attempt resuming guideline directed medical therapy as BP permits, however, she has unfortunately not tolerated thus far. (2) Coronary artery disease: Code(s): I25.10 - Atherosclerotic heart disease of [place] coronary artery without angina pectoris Status: Acute Assessment and Plan: Severe diffuse disease. She may follow up with her executive search consultant as an outpatient with any consideration for attempted intervention at outside facility better equipped for her needs and high risk PCI. Continue dual antiplatelet therapy with aspirin and clopidogrel. DVT prophylaxis. (3) Peripheral arterial disease: Code(s): I73.9 - Peripheral vascular disease, unspecified Status: Acute Assessment and Plan: Chronic, extensive. history of right BKA Subjective Date/time seen: Date of service:06/21/22 12:37 Interval history: Follow-up visit in this 56-year-old woman with: Apparently long history of severe diffuse peripheral and coronary vascular disease. Patient was admitted to this hospital with complaints of some dyspnea and she normally receives her cardiac care elsewhere. Catheterization done yesterday here demonstrates diffuse coronary artery disease with patent proximal LAD stent. Circumflex marginal branches are diffusely disease as well as the distal right coronary artery. Disease is not amenable to PCI at least PCI at this hospital. 06/20/22 Patient states she is doing okay, complains of having to have blood drawn. [place] a skip her pause and her heart beat overnight on couple of occasions no chest pain or shortness of breath. Eating fairly well. Patient states she was told she had AFib I do not see atrial fibrillation on telemetry review or other SVT overnight. She is currently in sinus rhythm. 06/21/2022 patient feels okay. Tired, sleeping but arousable this morning. Denies chest pain or shortness of breath. No new issues overnight. BP remains marginal generally in the 90s systolic. Sinus rhythm and sinus tachycardia on telemetry. Review of Systems Constitutional: Constitutional: Denies fever(s) Eyes: Eyes: Reports no additional eye complaints ENT: Denies epistaxis Cardiovascular: Cardiovascular: Denies chest pain, Denies pedal edema, Denies lightheadedness, Denies palpitations, Denies dyspnea and Reports dyspnea on exertion Respiratory: Respiratory: Denies chest congestion, Denies dyspnea and Reports dyspnea on exertion Gastrointestinal: Gastrointestinal: Denies abdominal pain and Denies hematochezia Genitourinary: Genitourinary: Denies hematuria Musculoskeletal: Musculoskeletal: Reports no additional musculoskeletal complaints and Reports arthralgias Integumentary/Breasts: Skin/Breast: Reports system reviewed and no additional complaints, except as docu Neurologic: Reports system reviewed and no additional complaints, except as documented, Denies behavioral changes and Denies confusion Psychiatric: Psychiatric: Denies behavioral changes and Denies confusion Endocrine: Endocrine: Denies palpitations Exam Narrative: Older female in bed, alert, pleasant, no distress, joking around a bit. Const: General: cooperative, comfortable and no acute distress; No confusion Orientation/consciousness: oriented to p
[2022-06-21 16:40] LABS: Glucose Point of Care 85 mg/dl (65-105)
[2022-06-21 16:40] LABS: Glucose Point of Care 59 mg/dl (65-105)
--- NOTE | 2022-06-21 18:34 | PC.NURSE ---
On 06/21/22, the student, Joelle Lance, provided care and completed [employer] documentation on this patient. I have reviewed the student's documentation and agree with the findings.
[2022-06-21 20:27] LABS: Glucose Point of Care 281 mg/dl (65-105)
[2022-06-21] MEDS: DICLOFENAC SODIUM 1% 100 GM GEL (*BKC) 1 APPLIC TOPICAL (20:40)
[2022-06-22] VITALS (22 sets, daily range): BP systolic 96–106; BP diastolic 56–70; PULSE 76–100; RESP 16–20; TEMP 36.3–37.2; O2SAT 95–100
[2022-06-22] MEDS: ALPRAZolam (*CRX) 0.5 MG TABLET PO (01:57)
[2022-06-22] MEDS: ALBUTEROL SULFATE NEB 2.5 MG/3 ML INH INHALATION ×4 (02:55→20:10)
[2022-06-22] MEDS: IPRATROPIUM BR 0.02% INH SOLN 0.5 MG/2.5 ML VIAL INHALATION ×4 (02:55→20:10)
[2022-06-22 04:55] LABS: Basophils Absolute Auto 0.1 K/mm3 (0.0-0.1); Basophils Percent Auto 0.9 % (0.2-1.2); Eosinophils Absolute Auto 0.2 K/mm3 (0-0.3); Eosinophils Percent Auto 2.2 % (0-4.4); Hematocrit 38.7 % (37.0-47.0); Hemoglobin 12.1 g/dL (12.0-15.0); Immature Granulocyte Absolute 0.01 K/mm3 (0.00-0.031); Immature Granulocyte Percent A 0.1 % (0-0.5); Lymphocytes Absolute Auto 2.66 K/mm3 (0.9-3.2); Lymphocytes Percent Auto 35.9 % (18.3-44.2); Mean Corpuscular HGB Conc 31.3 g/dl (32-36); Mean Corpuscular Hemoglobin 25.9 pg (26-34); Mean Corpuscular Volume 82.7 fl (80-100); Mean Platelet Volume 11.3 fl (7.4-10.4); Monocytes Absolute Auto 0.5 K/mm3 (0.1-0.6); Monocytes Percent Auto 6.9 % (2.6-8.5); Platelet Count Result 233 k/mm3 (150-375); Red Blood Count 4.68 M/mm3 (4.2-5.4); Red Cell Distribution Width 13.6 % (11.5-14.5); White Blood Count 7.4 K/mm3 (4.5-10.0)
[2022-06-22 05:03] LABS: Alanine Aminotransferase 18 U/L (6-35); Albumin Level 4.5 g/dL (3.5-5.1); Alkaline Phosphatase 75 U/L (38-126); Anion Gap 13 mmol/L (8-16); Aspartate Amino Transferase 22 U/L (14-36); Bilirubin,Total 0.5 mg/dL (0.2-1.3); Blood Urea Nitrogen 18 mg/dL (7-17); Calcium 8.8 mg/dL (8.4-10.2); Carbon Dioxide 23 mmol/L (22-30); Chloride 104 mmol/L (98-107); Estimated CRCL calculation 67 ml/min; Estimated Glomerular Filt Rate > 60; Glucose 80 mg/dL (65-110); Potassium 3.7 mmol/L (3.4-5.0); Sodium 140 mmol/L (137-145)
[2022-06-22 08:12] LABS: Glucose Point of Care 92 mg/dl (65-105)
[2022-06-22] MEDS: PREGABALIN (*CRX) 50 MG CAPSULE 100 MG PO ×2 (08:19→20:30)
[2022-06-22] MEDS: ENOXAPARIN 40 MG/0.4 ML SYRINGE SUB-Q (08:20)
[2022-06-22] MEDS: CLOPIDOGREL BISULFATE 75 MG TABLET PO (08:21)
[2022-06-22] MEDS: EMPAGLIFLOZIN 10 MG TABLET PO (08:21)
[2022-06-22] MEDS: DULoxetine HCL 30 MG CAPSULE.DR 60 MG PO ×2 (08:21→20:30)
[2022-06-22] MEDS: ASPIRIN 81 MG ENTERIC TABLET PO (08:21)
[2022-06-22] MEDS: INSULIN GLARGINE (*BKC) 100 UNITS/ML 15 UNITS SUB-Q (10:19)
[2022-06-22] MEDS: INSULIN ASPART (*BKC) 100 UNITS/ML SUB-Q ×4 (10:20→16:45)
--- NOTE | 2022-06-22 10:31 | PM.PNCARD ---
Progress Note: A&P Assessment and Plan (1) Acute on chronic diastolic CHF (congestive heart failure): Code(s): I50.33 - Acute on chronic diastolic (congestive) heart failure Status: Acute Assessment and Plan: Entresto on hold secondary to relative hypotension. BP stable at this time but she has failed to tolerate re-initiation attempts. Patient appears to be reasonably euvolemic. Anticipate she will require re-initiation of diuretic therapy. She remains on Jardiance. Patient has been resistant apparently to blood draws. Continue low-dose Toprol XL 12.5 mg daily in reserve tolerance. Would like to attempt resuming guideline directed medical therapy as BP permits, however, she has unfortunately not tolerated thus far. (2) Coronary artery disease: Code(s): I25.10 - Atherosclerotic heart disease of [place] coronary artery without angina pectoris Status: Acute Assessment and Plan: Severe diffuse disease. She may follow up with her grounds maintenance supervisor as an outpatient with any consideration for attempted intervention at outside facility better equipped for her needs and high risk PCI. Continue dual antiplatelet therapy with aspirin and clopidogrel. DVT prophylaxis. (3) Peripheral arterial disease: Code(s): I73.9 - Peripheral vascular disease, unspecified Status: Acute Assessment and Plan: Chronic, extensive. history of right BKA Subjective Date/time seen: 06/22/22 10:31 Interval history: Follow-up visit in this 56-year-old woman with: Apparently long history of severe diffuse peripheral and coronary vascular disease. Patient was admitted to this hospital with complaints of some dyspnea and she normally receives her cardiac care elsewhere. Catheterization done yesterday here demonstrates diffuse coronary artery disease with patent proximal LAD stent. Circumflex marginal branches are diffusely disease as well as the distal right coronary artery. Disease is not amenable to PCI at least PCI at this hospital. 06/20/22 Patient states she is doing okay, complains of having to have blood drawn. [place] a skip her pause and her heart beat overnight on couple of occasions no chest pain or shortness of breath. Eating fairly well. Patient states she was told she had AFib I do not see atrial fibrillation on telemetry review or other SVT overnight. She is currently in sinus rhythm. Date of service 06/22/2022: Resting comfortably in bed without complaint. Denies chest pain or shortness of breath. No new issues overnight. Review of Systems Constitutional: Constitutional: Denies fever(s) Eyes: Eyes: Reports no additional eye complaints ENT: Denies epistaxis Cardiovascular: Cardiovascular: Denies chest pain, Denies pedal edema, Denies lightheadedness, Denies palpitations, Denies dyspnea and Reports dyspnea on exertion Respiratory: Respiratory: Denies chest congestion, Denies dyspnea and Reports dyspnea on exertion Gastrointestinal: Gastrointestinal: Denies abdominal pain and Denies hematochezia Genitourinary: Genitourinary: Denies hematuria Musculoskeletal: Musculoskeletal: Reports no additional musculoskeletal complaints and Reports arthralgias Integumentary/Breasts: Skin/Breast: Reports system reviewed and no additional complaints, except as docu Neurologic: Reports system reviewed and no additional complaints, except as documented, Denies behavioral changes and Denies confusion Psychiatric: Psychiatric: Denies behavioral changes and Denies confusion Endocrine: Endocrine: Denies palpitations Exam Narrative: Older female in bed, alert, pleasant, no distress, joking around a bit. Const: General: cooperative, comfortable and no acute distress; No confusion Orientation/consciousness: oriented to person, patient oriented x3 and No confusion Other: chronically ill-appearing woman flat in bed no distress with her eyes covered no active chest pain or dyspnea HENMT: Mouth
[2022-06-22] MEDS: METOPROLOL SUCCINATE EXT REL 12.5 MG TABCR PO (11:21)
[2022-06-22 11:34] LABS: Glucose Point of Care 275 mg/dl (65-105)
--- NOTE | 2022-06-22 12:18 | PM.IMPN ---
Progress Note: A&P Assessment and Plan (1) Hypotension: Code(s): I95.9 - Hypotension, unspecified Status: Acute Assessment and Plan: Patient had a cardiac catheterization on 06/18/2022, started on Lasix for elevated LVEDP along with Entresto Patient received 500 mL IV fluids on the medical floor and transferred to the ICU since that her blood pressures have been stable Received albumin and has pain in the ICU EF 30% with pulmonary edema on chest x-ray and chest CT Blood pressure low normal continue to monitor Lasix beta-gisela and Entresto on hold slowly needs to restart as tolerated looks euvolemic on exam currently may be start bb and acei/arb small dose Beta-gisela started 06/22/2022 continue to monitor blood pressure today and may add small dose ACei/Arb tomorrow (2) Acute systolic (congestive) heart failure: Code(s): I50.21 - Acute systolic (congestive) heart failure Status: Acute Assessment and Plan: Acute systolic heart failure with a decline in ejection fraction down to 30%. Diuresis as tolerated by blood pressure Planned for Entresto as tolerated In shoe medical therapy for LV dysfunction Entresto and beta-gisela on hold at this time Echo 06/18/2022 EF 25-30% grade 1 diastolic dysfunction no significant valvular abnormality Lexiscan was abnormal and with large area of fixed defect with infarction the LCX territory. (3) Coronary artery disease: Code(s): I25.10 - Atherosclerotic heart disease of [place] coronary artery without angina pectoris Status: Acute Assessment and Plan: Diffuse coronary artery disease in left circumflex/OM and RCA, according to the water proofer if PCI is pursued it would be high risk and patient will be moved to a tertiary center for this. -cardiology following the patient -continue aspirin, clopidogrel (4) Chronic obstructive pulmonary disease: Code(s): J44.9 - Chronic obstructive pulmonary disease, unspecified Status: Acute Assessment and Plan: Continue bronchodilator (5) Diabetes mellitus: Code(s): E11.9 - Type 2 diabetes mellitus without complications Status: Chronic Assessment and Plan: Continue Accu-Cheks and sliding scale -continue Jardiance A1c 8.5 Plan Elevated troponin see above. EKG with new incomplete left bundle-branch block. CTA negative for PE showed congestive changes pulmonary edema and pleural effusions. Possible sleep apnearecent apnea linek test with AHI 35 an RI of 38. She will need outpatient sleep study. DVT prophylaxis: Lovenox Stress ulcer prophylaxis: Not applicable Nutrition: Onto the night Hyperlipidemia: Takes Repatha. Peripheral vascular disease with history of bilateral iliac stents Code Status: Do not resuscitate Subjective Date/time seen: 06/22/22 12:18 Interval history: 56yo female with COPD, CAD and DM here for SOB. Motor to the ICU yesterday. Chart reviewed Status post cardiac catheterization on 06/18/2022 no overnight events. bp trend reviewed. telemetry reviewed. eulalia toscano sob, chest pain. discussed with cardiology. 06/22/2022 no new complaints. Blood pressure low last night. Unclear if there was a repeat at that time. She denies any dizziness or lightheadedness chest she started on metoprolol this a.m. Review of Systems Review of Systems: All systems reviewed & are unremarkable except as noted in HPI and below Exam Narrative: General: Pleasant patient in no acute distress HEENT:? Pupils equal reactive, dry oral mucosa Neck:? Supple nontender Respiratory:? Coarse breath sounds bilaterally, adequate air entry, no wheeze Cardiac:? S1-S2 is normal, regular rate and rhythm Abdomen:? Soft, nontender, nondistended, normoactive bowel sounds Extremities:? Right BKA, rocker bottom foot on the left side, bilateral lower extremity edema Neuro:? Patient is awake, alert, answers to questions and follows simple commands Skin:? No lesions noted, warm
--- NOTE | 2022-06-22 14:03 | PCOTNOTE ---
Attempted to see patient this PM for OT, patient reports Every time I try to get some sleep, someone comes in and wakes me up. I'm just exhausted. Patient declined OT at this time. Will continue OT per plan of care.
[2022-06-22 16:41] LABS: Glucose Point of Care 125 mg/dl (65-105)
[2022-06-22 20:19] LABS: Glucose Point of Care 159 mg/dl (65-105)
[2022-06-23] VITALS (21 sets, daily range): BP systolic 91–167; BP diastolic 55–88; PULSE 81–103; RESP 12–20; TEMP 36.5–36.6; O2SAT 96–100
[2022-06-23] MEDS: ALPRAZolam (*CRX) 0.5 MG TABLET PO ×3 (01:14→23:56)
[2022-06-23] MEDS: IPRATROPIUM BR 0.02% INH SOLN 0.5 MG/2.5 ML VIAL INHALATION ×4 (02:03→19:22)
[2022-06-23] MEDS: ALBUTEROL SULFATE NEB 2.5 MG/3 ML INH INHALATION ×4 (02:04→19:22)
--- NOTE | 2022-06-23 02:38 | ECG_ITS ---
Measurements Intervals [place] Rate: 88 P: 63 DC: 179 QRS: -35 QRSD: 100 T: 70 QT: 400 QTc: 484 Interpretive Statements SINUS RHYTHM LEFT AXIS DEVIATION POSSIBLE LEFT ATRIAL ENLARGEMENT MINIMAL Q WAVES- HIGH LATERAL LEADS BORDERLINE T WAVE ABNORMALITY- HIGH LATERAL LEADS BORDERLINE ECG COMPARED TO ECG 06/18/2022 19:06:43 NO SIGNIFICANT CHANGES Electronically Signed On 06-23-2022 9:55:06 HEAD FIELD HOCKEY COACH by Mike Bernardo D.O.
[2022-06-23] MEDS: MIDODRINE HCL 2.5 MG TABLET 15 MG PO (03:40)
[2022-06-23 08:16] LABS: Glucose Point of Care 139 mg/dl (65-105)
--- NOTE | 2022-06-23 09:52 | PCPTNOTE ---
Patient refused treatment this session due to patient wanting to sleep at this time. Patient reported she did not go to sleep until 4 a.m. and wants to sleep at this time.
[2022-06-23] MEDS: ENOXAPARIN 40 MG/0.4 ML SYRINGE SUB-Q (09:54)
[2022-06-23] MEDS: METOPROLOL SUCCINATE EXT REL 12.5 MG TABCR PO (09:55)
[2022-06-23] MEDS: DULoxetine HCL 30 MG CAPSULE.DR 60 MG PO ×2 (09:55→20:13)
[2022-06-23] MEDS: PREGABALIN (*CRX) 50 MG CAPSULE 100 MG PO ×2 (09:56→20:13)
[2022-06-23] MEDS: INSULIN GLARGINE (*BKC) 100 UNITS/ML 15 UNITS SUB-Q (09:56)
[2022-06-23] MEDS: ASPIRIN 81 MG ENTERIC TABLET PO (09:56)
[2022-06-23] MEDS: EMPAGLIFLOZIN 10 MG TABLET PO (09:56)
[2022-06-23] MEDS: CLOPIDOGREL BISULFATE 75 MG TABLET PO (09:56)
--- NOTE | 2022-06-23 10:07 | PM.PNCARD ---
Progress Note: A&P Assessment and Plan (1) Acute on chronic diastolic CHF (congestive heart failure): Code(s): I50.33 - Acute on chronic diastolic (congestive) heart failure Status: Acute Assessment and Plan: Entresto on hold secondary to relative hypotension. BP stable at this time but she has failed to tolerate re-initiation attempts. Patient appears to be reasonably euvolemic. Anticipate she will require re-initiation of diuretic therapy. She remains on Jardiance. Patient has been resistant apparently to blood draws. Continue low-dose Toprol XL 12.5 mg daily in reserve tolerance. Would like to attempt resuming guideline directed medical therapy as BP permits, however, she has unfortunately not tolerated thus far. (2) Coronary artery disease: Code(s): I25.10 - Atherosclerotic heart disease of [place] coronary artery without angina pectoris Status: Acute Assessment and Plan: Severe diffuse disease. She may follow up with her explosives engineer as an outpatient with any consideration for attempted intervention at outside facility better equipped for her needs and high risk PCI. Continue dual antiplatelet therapy with aspirin and clopidogrel. DVT prophylaxis. (3) Peripheral arterial disease: Code(s): I73.9 - Peripheral vascular disease, unspecified Status: Acute Assessment and Plan: Chronic, extensive. history of right BKA Subjective Date/time seen: 06/23/22 10:07 Interval history: Follow-up visit in this 56-year-old woman with: Apparently long history of severe diffuse peripheral and coronary vascular disease. Patient was admitted to this hospital with complaints of some dyspnea and she normally receives her cardiac care elsewhere. Catheterization done yesterday here demonstrates diffuse coronary artery disease with patent proximal LAD stent. Circumflex marginal branches are diffusely disease as well as the distal right coronary artery. Disease is not amenable to PCI at least PCI at this hospital. 06/20/22 Patient states she is doing okay, complains of having to have blood drawn. [place] a skip her pause and her heart beat overnight on couple of occasions no chest pain or shortness of breath. Eating fairly well. Patient states she was told she had AFib I do not see atrial fibrillation on telemetry review or other SVT overnight. She is currently in sinus rhythm. Date of service 06/22/2022: Resting comfortably in bed without complaint. Denies chest pain or shortness of breath. No new issues overnight. Date of service 06/23/2022: Feels tired and weak but no active chest pain or shortness of breath at present Review of Systems Constitutional: Constitutional: Denies fever(s) Eyes: Eyes: Reports no additional eye complaints ENT: Denies epistaxis Cardiovascular: Cardiovascular: Denies chest pain, Denies pedal edema, Denies lightheadedness, Denies palpitations, Denies dyspnea and Reports dyspnea on exertion Respiratory: Respiratory: Denies chest congestion, Denies dyspnea and Reports dyspnea on exertion Gastrointestinal: Gastrointestinal: Denies abdominal pain and Denies hematochezia Genitourinary: Genitourinary: Denies hematuria Musculoskeletal: Musculoskeletal: Reports no additional musculoskeletal complaints and Reports arthralgias Integumentary/Breasts: Skin/Breast: Reports system reviewed and no additional complaints, except as docu Neurologic: Reports system reviewed and no additional complaints, except as documented, Denies behavioral changes and Denies confusion Psychiatric: Psychiatric: Denies behavioral changes and Denies confusion Endocrine: Endocrine: Denies palpitations Exam Narrative: Older female in bed, alert, pleasant, no distress, joking around a bit. Const: General: cooperative, comfortable and no acute distress; No confusion Orientation/consciousness: oriented to person, patient oriented x3 and No confusion Other: chronically il
--- NOTE | 2022-06-23 10:44 | PCOTNOTE ---
Patient sleeping soundly, refused PT earlier - did not disturb patient for this reason. Will continue OT per plan of care.
--- NOTE | 2022-06-23 13:42 | PCOTNOTE ---
Attempted to see patient this PM, patient unarousable. CATTLE MANAGER notified patient sleeping very soundly and unable to wake patient up. Patient not seen this date for OT for this reason.
--- NOTE | 2022-06-23 14:14 | PM.IMPN ---
Progress Note: A&P Assessment and Plan (1) Hypotension: Code(s): I95.9 - Hypotension, unspecified Status: Acute Assessment and Plan: Patient had a cardiac catheterization on 06/18/2022, started on Lasix for elevated LVEDP along with Entresto Patient received 500 mL IV fluids on the medical floor and transferred to the ICU since that her blood pressures have been stable Received albumin and has pain in the ICU EF 30% with pulmonary edema on chest x-ray and chest CT Blood pressure low normal continue to monitor Lasix beta-gisela and Entresto on hold slowly needs to restart as tolerated looks euvolemic on exam currently may be start bb and acei/arb small dose Beta-gisela started 06/22/2022 which he tolerated okay. May add small dose ACei/Arb per Cardiology (2) Acute systolic (congestive) heart failure: Code(s): I50.21 - Acute systolic (congestive) heart failure Status: Acute Assessment and Plan: Acute systolic heart failure with a decline in ejection fraction down to 30%. Diuresis as tolerated by blood pressure Planned for Entresto as tolerated In shoe medical therapy for LV dysfunction Entresto and beta-gisela on hold at this time Echo 06/18/2022 EF 25-30% grade 1 diastolic dysfunction no significant valvular abnormality Lexiscan was abnormal and with large area of fixed defect with infarction the LCX territory. (3) Coronary artery disease: Code(s): I25.10 - Atherosclerotic heart disease of [place] coronary artery without angina pectoris Status: Acute Assessment and Plan: Diffuse coronary artery disease in left circumflex/OM and RCA, according to the edge burnisher uppers if PCI is pursued it would be high risk and patient will be moved to a tertiary center for this. -cardiology following the patient -continue aspirin, clopidogrel (4) Chronic obstructive pulmonary disease: Code(s): J44.9 - Chronic obstructive pulmonary disease, unspecified Status: Acute Assessment and Plan: Continue bronchodilator (5) Diabetes mellitus: Code(s): E11.9 - Type 2 diabetes mellitus without complications Status: Chronic Assessment and Plan: Continue Accu-Cheks and sliding scale -continue Jardiance A1c 8.5 Plan Elevated troponin see above. EKG with new incomplete left bundle-branch block. CTA negative for PE showed congestive changes pulmonary edema and pleural effusions. Possible sleep apnearecent apnea linek test with AHI 35 an RI of 38. She will need outpatient sleep study. DVT prophylaxis: Lovenox Stress ulcer prophylaxis: Not applicable Nutrition: Onto the night Hyperlipidemia: Takes Repatha. Peripheral vascular disease with history of bilateral iliac stents Code Status: Do not resuscitate Subjective Date/time seen: 06/23/22 14:14 Interval history: No overnight events. Feels tired otherwise no other complaint denies any shortness of breath. She tolerated metoprolol yesterday. Review of Systems Review of Systems: All systems reviewed & are unremarkable except as noted in HPI and below Exam Narrative: General: Pleasant patient in no acute distress HEENT:? Pupils equal reactive, dry oral mucosa Neck:? Supple nontender Respiratory:? Coarse breath sounds bilaterally, adequate air entry, no wheeze Cardiac:? S1-S2 is normal, regular rate and rhythm Abdomen:? Soft, nontender, nondistended, normoactive bowel sounds Extremities:? Right BKA, rocker bottom foot on the left side, bilateral lower extremity edema Neuro:? Patient is awake, alert, answers to questions and follows simple commands Skin:? No lesions noted, warm and dry Psych:? Normal mentation and affect Objective Data Vital Signs Vital Signs: Vital Signs - 24 hr 06/22/22 16:00 06/22/22 16:00 06/22/22 16:00 Temperature 97.3 F L Pulse Rate 97 88 Respiratory Rate 16 Blood Pressure 97/59 L Pulse Oximetry 95 Oxygen Delivery Room Air 06/22/22 18:00 06/22/22 20:10
--- NOTE | 2022-06-23 14:15 | PCPTNOTE ---
Attempted to see patient for PT, however patient was laying in bed with shortness of breath and reported she could not breath. Checked O2 SATS and heart rate. Patient's O2 SATs 97%-100% and heart rate 87. Patient seemed emotional. Patient unable to be seen for PT this date. Notified RN.
[2022-06-23 14:41] LABS: Glucose Point of Care 190 mg/dl (65-105)
[2022-06-23 16:37] LABS: Glucose Point of Care 186 mg/dl (65-105)
[2022-06-23] MEDS: INSULIN ASPART (*BKC) 100 UNITS/ML SUB-Q (16:41)
[2022-06-23 20:31] LABS: Glucose Point of Care 234 mg/dl (65-105)
[2022-06-24] VITALS (15 sets, daily range): BP systolic 97–118; BP diastolic 55–65; PULSE 70–100; RESP 14–22; TEMP 36.1–36.7; O2SAT 96–100
[2022-06-24] MEDS: IPRATROPIUM BR 0.02% INH SOLN 0.5 MG/2.5 ML VIAL INHALATION ×3 (02:19→20:56)
[2022-06-24] MEDS: ALBUTEROL SULFATE NEB 2.5 MG/3 ML INH INHALATION ×3 (02:20→20:54)
[2022-06-24 07:28] LABS: Glucose Point of Care 139 mg/dl (65-105)
[2022-06-24] MEDS: ENOXAPARIN 40 MG/0.4 ML SYRINGE SUB-Q (09:52)
[2022-06-24] MEDS: ASPIRIN 81 MG ENTERIC TABLET PO (09:52)
[2022-06-24] MEDS: CLOPIDOGREL BISULFATE 75 MG TABLET PO (09:52)
[2022-06-24] MEDS: METOPROLOL SUCCINATE EXT REL 12.5 MG TABCR PO (09:52)
[2022-06-24] MEDS: INSULIN GLARGINE (*BKC) 100 UNITS/ML 15 UNITS SUB-Q (09:52)
[2022-06-24] MEDS: EMPAGLIFLOZIN 10 MG TABLET PO (09:52)
[2022-06-24] MEDS: DULoxetine HCL 30 MG CAPSULE.DR 60 MG PO ×2 (09:52→22:00)
--- NOTE | 2022-06-24 09:52 | PCPTNOTE ---
Patient refused treatment this session. Patient reported she had pain in her shoulder, neck, and back at a 12/10 and she does not want to do therapy at this time. Educated patient on the importance of therapy and getting up to chair. Patient continued to refuse. RN aware and in room.
[2022-06-24] MEDS: INSULIN ASPART (*BKC) 100 UNITS/ML SUB-Q ×3 (09:53→17:23)
[2022-06-24] MEDS: PREGABALIN (*CRX) 50 MG CAPSULE 100 MG PO ×2 (09:55→21:59)
--- NOTE | 2022-06-24 10:18 | PCNWS ---
Weekly nutritional screen. Patient is tolerating current diet with adequate intake. No weight loss reported. No nutritional needs at this time.
--- NOTE | 2022-06-24 10:52 | PM.PNCARD ---
Progress Note: A&P Assessment and Plan (1) Acute on chronic diastolic CHF (congestive heart failure): Code(s): I50.33 - Acute on chronic diastolic (congestive) heart failure Status: Acute Assessment and Plan: Entresto on hold secondary to relative hypotension. BP stable at this time but she has failed to tolerate re-initiation attempts. Patient appears to be reasonably euvolemic. Anticipate she will require re-initiation of diuretic therapy. She remains on Jardiance. Patient has been resistant apparently to blood draws. Continue low-dose Toprol XL 12.5 mg daily in reserve tolerance. Would like to attempt resuming guideline directed medical therapy as BP permits, however, she has unfortunately not tolerated thus far. Portable CXR today to re-evaluate fluid status. (2) Coronary artery disease: Code(s): I25.10 - Atherosclerotic heart disease of [place] coronary artery without angina pectoris Status: Acute Assessment and Plan: Severe diffuse disease. She may follow up with her bottom brusher as an outpatient with any consideration for attempted intervention at outside facility better equipped for her needs and high risk PCI. Continue dual antiplatelet therapy with aspirin and clopidogrel. DVT prophylaxis. (3) Peripheral arterial disease: Code(s): I73.9 - Peripheral vascular disease, unspecified Status: Acute Assessment and Plan: Chronic, extensive. history of right BKA Subjective Date/time seen: 06/24/22 10:52 Interval history: Follow-up visit in this 56-year-old woman with: Apparently long history of severe diffuse peripheral and coronary vascular disease. Patient was admitted to this hospital with complaints of some dyspnea and she normally receives her cardiac care elsewhere. Catheterization done yesterday here demonstrates diffuse coronary artery disease with patent proximal LAD stent. Circumflex marginal branches are diffusely disease as well as the distal right coronary artery. Disease is not amenable to PCI at least PCI at this hospital. 06/20/22 Patient states she is doing okay, complains of having to have blood drawn. [place] a skip her pause and her heart beat overnight on couple of occasions no chest pain or shortness of breath. Eating fairly well. Patient states she was told she had AFib I do not see atrial fibrillation on telemetry review or other SVT overnight. She is currently in sinus rhythm. Date of service 06/22/2022: Resting comfortably in bed without complaint. Denies chest pain or shortness of breath. No new issues overnight. Date of service 06/24/2022: Feels tired and weak. She complains of shoulder pain from orthopedic issues. She is not short of breath. Review of Systems Constitutional: Constitutional: Denies fever(s) Eyes: Eyes: Reports no additional eye complaints ENT: Denies epistaxis Cardiovascular: Cardiovascular: Denies chest pain, Denies pedal edema, Denies lightheadedness, Denies palpitations, Denies dyspnea and Reports dyspnea on exertion Respiratory: Respiratory: Denies chest congestion, Denies dyspnea and Reports dyspnea on exertion Gastrointestinal: Gastrointestinal: Denies abdominal pain and Denies hematochezia Genitourinary: Genitourinary: Denies hematuria Musculoskeletal: Musculoskeletal: Reports no additional musculoskeletal complaints and Reports arthralgias Integumentary/Breasts: Skin/Breast: Reports system reviewed and no additional complaints, except as docu Neurologic: Reports system reviewed and no additional complaints, except as documented, Denies behavioral changes and Denies confusion Psychiatric: Psychiatric: Denies behavioral changes and Denies confusion Endocrine: Endocrine: Denies palpitations Exam Narrative: Older female in bed, alert, pleasant, no distress, joking around a bit. Const: General: cooperative, comfortable and no acute distress; No confusion Orientation/consciousness: or
--- NOTE | 2022-06-24 10:55 | PM.IMPN ---
Progress Note: A&P Assessment and Plan (1) Hypotension: Code(s): I95.9 - Hypotension, unspecified Status: Acute Assessment and Plan: Patient had a cardiac catheterization on 06/18/2022, started on Lasix for elevated LVEDP along with Entresto Patient received 500 mL IV fluids on the medical floor and transferred to the ICU since that her blood pressures have been stable Received albumin and has pain in the ICU EF 30% with pulmonary edema on chest x-ray and chest CT Blood pressure low normal continue to monitor Lasix beta-gisela and Entresto on hold slowly needs to restart as tolerated looks euvolemic on exam currently may be start bb and acei/arb small dose Beta-gisela started 06/22/2022 which he tolerated okay. May add small dose ACei/Arb per Cardiology. no further plans as not able to tolerate. Discussed with Cardiology 06/24/2022. Plans for discharge home if remains stable with no further plans of addition of any medications for her ischemic cardiomyopathy because of intolerance and hypotension (2) Acute systolic (congestive) heart failure: Code(s): I50.21 - Acute systolic (congestive) heart failure Status: Acute Assessment and Plan: Acute systolic heart failure with a decline in ejection fraction down to 30%. Diuresis as tolerated by blood pressure Planned for Entresto as tolerated In shoe medical therapy for LV dysfunction Entresto and beta-gisela on hold at this time Echo 06/18/2022 EF 25-30% grade 1 diastolic dysfunction no significant valvular abnormality Lexiscan was abnormal and with large area of fixed defect with infarction the LCX territory. (3) Coronary artery disease: Code(s): I25.10 - Atherosclerotic heart disease of [place] coronary artery without angina pectoris Status: Acute Assessment and Plan: Diffuse coronary artery disease in left circumflex/OM and RCA, according to the commercial finance analyst if PCI is pursued it would be high risk and patient will be moved to a tertiary center for this. -cardiology following the patient -continue aspirin, clopidogrel (4) Chronic obstructive pulmonary disease: Code(s): J44.9 - Chronic obstructive pulmonary disease, unspecified Status: Acute Assessment and Plan: Continue bronchodilator (5) Diabetes mellitus: Code(s): E11.9 - Type 2 diabetes mellitus without complications Status: Chronic Assessment and Plan: Continue Accu-Cheks and sliding scale -continue Jardiance A1c 8.5 Plan Elevated troponin see above. EKG with new incomplete left bundle-branch block. CTA negative for PE showed congestive changes pulmonary edema and pleural effusions. Possible sleep apnea recent apnea link test with AHI 35 an RI of 38. She will need outpatient sleep study. DVT prophylaxis: Lovenox Stress ulcer prophylaxis: Not applicable Nutrition: Onto the night Hyperlipidemia: Takes Repatha. Peripheral vascular disease with history of bilateral iliac stents Code Status: Do not resuscitate Subjective Date/time seen: 06/24/22 10:55 Interval history: No overnight events. Reports feeling tired. Feeling low and depressed with her medical issues. Blood pressure trend reviewed. Review of Systems Review of Systems: All systems reviewed & are unremarkable except as noted in HPI and below Exam Narrative: General: Pleasant patient in no acute distress HEENT:? Pupils equal reactive, dry oral mucosa Neck:? Supple nontender Respiratory:? Coarse breath sounds bilaterally, adequate air entry, no wheeze Cardiac:? S1-S2 is normal, regular rate and rhythm Abdomen:? Soft, nontender, nondistended, normoactive bowel sounds Extremities:? Right BKA, rocker bottom foot on the left side. no edema noted Neuro:? Patient is awake, alert, and oriented x3 no focal neurological deficits Skin:? No lesions noted, warm and dry Psych:? Low mood cryful Objective Data Vital Signs Vital Signs: Vital Signs - 24 hr 06/23/22 1
--- NOTE | 2022-06-24 11:32 | PCPTNOTE ---
Attempted to see patient for PT, however patient just got lunch and wanted to eat her lunch. Asked patient if she wanted to get up to chair to eat lunch and patient reported no.
[2022-06-24] MEDS: SERTRALINE HCL 25 MG TABLET PO (11:37)
[2022-06-24 11:44] LABS: Glucose Point of Care 96 mg/dl (65-105)
[2022-06-24 16:40] LABS: Glucose Point of Care 158 mg/dl (65-105)
[2022-06-24 21:18] LABS: Glucose Point of Care 109 mg/dl (65-105)
[2022-06-24 22:09] LABS: Glucose Point of Care 138 mg/dl (65-105)
[2022-06-25] VITALS (13 sets, daily range): BP systolic 95–114; BP diastolic 59–64; PULSE 78–96; RESP 17–20; TEMP 35.9–36.9; O2SAT 93–98
[2022-06-25] MEDS: ALPRAZolam (*CRX) 0.5 MG TABLET PO ×2 (00:38→22:33)
[2022-06-25] MEDS: ALBUTEROL SULFATE NEB 2.5 MG/3 ML INH INHALATION ×4 (02:22→21:39)
[2022-06-25] MEDS: IPRATROPIUM BR 0.02% INH SOLN 0.5 MG/2.5 ML VIAL INHALATION ×4 (02:22→21:39)
--- NOTE | 2022-06-25 03:47 | PC.NURSE ---
This patient, Tiff Vaughn, was transferred to [facility] on 06/24/22 at 2130. Personal belongings sent with patient. Report given to Magdalena. Appropriate documentation sent with patient.
--- NOTE | 2022-06-25 05:54 | PC.NURSE ---
Pt came to us from IMU. Pt is resting comfortably in bed. Pt is able to roll in bed to assist staff with the use of a bed cruz. Pt has had no complaints and expresses no needs at this time. Will continue to monitor.
[2022-06-25 08:25] LABS: Hematocrit 41.2 % (37.0-47.0); Hemoglobin 13.1 g/dL (12.0-15.0); Mean Corpuscular HGB Conc 31.8 g/dl (32-36); Mean Corpuscular Hemoglobin 26.5 pg (26-34); Mean Corpuscular Volume 83.4 fl (80-100); Mean Platelet Volume 12.2 fl (7.4-10.4); Platelet Count Result 271 k/mm3 (150-375); Red Blood Count 4.94 M/mm3 (4.2-5.4); Red Cell Distribution Width 13.5 % (11.5-14.5)
[2022-06-25 08:41] LABS: Anion Gap 14 mmol/L (8-16); Blood Urea Nitrogen 23 mg/dL (7-17); Calcium 8.8 mg/dL (8.4-10.2); Carbon Dioxide 24 mmol/L (22-30); Chloride 103 mmol/L (98-107); Estimated CRCL calculation 67 ml/min; Estimated Glomerular Filt Rate > 60; Glucose 138 mg/dL (65-110); Magnesium 2.2 mg/dL (1.6-2.3); Potassium 4.6 mmol/L (3.4-5.0); Sodium 141 mmol/L (137-145)
--- NOTE | 2022-06-25 09:17 | PM.PNCARD ---
Progress Note: A&P Assessment and Plan (1) Acute on chronic diastolic CHF (congestive heart failure): Code(s): I50.33 - Acute on chronic diastolic (congestive) heart failure Status: Acute Assessment and Plan: Entresto on hold secondary to relative hypotension. BP stable at this time but she has failed to tolerate re-initiation attempts. Patient appears to be reasonably euvolemic. . She remains on Jardiance. Patient has been resistant apparently to blood draws. Continue low-dose Toprol XL 12.5 mg daily in reserve tolerance. Would like to attempt resuming guideline directed medical therapy as BP permits, however, she has unfortunately not tolerated thus far. Chest x-ray showed improved pulmonary vascular congestion. At this point no further additions or changes will be made to her medical therapy. Okay for discharge to nursing facility or appropriate place from cardiac perspective. Follow-up with her primary cardiologists as an outpatient (2) Coronary artery disease: Code(s): I25.10 - Atherosclerotic heart disease of [place] coronary artery without angina pectoris Status: Acute Assessment and Plan: Severe diffuse disease. She may follow up with her maintenance mgr as an outpatient with any consideration for attempted intervention at outside facility better equipped for her needs and high risk PCI. Continue dual antiplatelet therapy with aspirin and clopidogrel. DVT prophylaxis. (3) Peripheral arterial disease: Code(s): I73.9 - Peripheral vascular disease, unspecified Status: Acute Assessment and Plan: Chronic, extensive. history of right BKA Subjective Date/time seen: 06/25/22 09:17 Interval history: Follow-up visit in this 56-year-old woman with: Apparently long history of severe diffuse peripheral and coronary vascular disease. Patient was admitted to this hospital with complaints of some dyspnea and she normally receives her cardiac care elsewhere. Catheterization done yesterday here demonstrates diffuse coronary artery disease with patent proximal LAD stent. Circumflex marginal branches are diffusely disease as well as the distal right coronary artery. Disease is not amenable to PCI at least PCI at this hospital. 06/20/22 Patient states she is doing okay, complains of having to have blood drawn. [facility] a skip her pause and her heart beat overnight on couple of occasions no chest pain or shortness of breath. Eating fairly well. Patient states she was told she had AFib I do not see atrial fibrillation on telemetry review or other SVT overnight. She is currently in sinus rhythm. Date of service 06/22/2022: Resting comfortably in bed without complaint. Denies chest pain or shortness of breath. No new issues overnight. Date of service 06/24/2022: Feels tired and weak. She complains of shoulder pain from orthopedic issues. She is not short of breath. Date of service 06/25/2022: Still weak but no chest pain or shortness of breath. Review of Systems Constitutional: Constitutional: Denies fever(s) Eyes: Eyes: Reports no additional eye complaints ENT: Denies epistaxis Cardiovascular: Cardiovascular: Denies chest pain, Denies pedal edema, Denies lightheadedness, Denies palpitations, Denies dyspnea and Reports dyspnea on exertion Respiratory: Respiratory: Denies chest congestion, Denies dyspnea and Reports dyspnea on exertion Gastrointestinal: Gastrointestinal: Denies abdominal pain and Denies hematochezia Genitourinary: Genitourinary: Denies hematuria Musculoskeletal: Musculoskeletal: Reports no additional musculoskeletal complaints and Reports arthralgias Integumentary/Breasts: Skin/Breast: Reports system reviewed and no additional complaints, except as docu Neurologic: Reports system reviewed and no additional complaints, except as documented, Denies behavioral changes and Denies confusion Psychiatric: Psychiatric: Denies behavioral changes and [place]
[2022-06-25] MEDS: INSULIN GLARGINE (*BKC) 100 UNITS/ML 15 UNITS SUB-Q (09:44)
[2022-06-25] MEDS: INSULIN ASPART (*BKC) 100 UNITS/ML SUB-Q (09:46)
[2022-06-25] MEDS: DULoxetine HCL 30 MG CAPSULE.DR 60 MG PO ×2 (09:48→22:32)
[2022-06-25] MEDS: EMPAGLIFLOZIN 10 MG TABLET PO (09:48)
[2022-06-25] MEDS: PREGABALIN (*CRX) 50 MG CAPSULE 100 MG PO ×2 (09:48→22:34)
[2022-06-25] MEDS: ASPIRIN 81 MG ENTERIC TABLET PO (09:48)
[2022-06-25] MEDS: CLOPIDOGREL BISULFATE 75 MG TABLET PO (09:49)
[2022-06-25] MEDS: ENOXAPARIN 40 MG/0.4 ML SYRINGE SUB-Q (09:50)
[2022-06-25] MEDS: SERTRALINE HCL 25 MG TABLET PO (09:50)
--- NOTE | 2022-06-25 09:58 | PCNWS ---
Weekly nutritional screen. Patient is tolerating current heart healthy diet with adequate intake at 75-100% of meals. No weight loss reported. BMI WNL. No nutritional needs at this time.
--- NOTE | 2022-06-25 15:02 | PM.IMPN ---
Progress Note: A&P Assessment and Plan (1) Hypotension: Code(s): I95.9 - Hypotension, unspecified Status: Acute Assessment and Plan: Patient had a cardiac catheterization on 06/18/2022, started on Lasix for elevated LVEDP along with Entresto Patient received 500 mL IV fluids on the medical floor and transferred to the ICU since that her blood pressures have been stable Received albumin and has pain in the ICU EF 30% with pulmonary edema on chest x-ray and chest CT Blood pressure low normal continue to monitor Lasix beta-gisela and Entresto on hold slowly needs to restart as tolerated looks euvolemic on exam currently may be start bb and acei/arb small dose Beta-gisela started 06/22/2022 which he tolerated okay. May add small dose ACei/Arb per Cardiology. no further plans as not able to tolerate. Discussed with Cardiology 06/24/2022. Plans for discharge home if remains stable with no further plans of addition of any medications for her ischemic cardiomyopathy because of intolerance and hypotension 06/25/2022 interval history: patient is a 56-year-old female patient presented with shortness of breath, was found to have elevated tropes patient had a stress test it showed large severe nonreversible perfusion defect, and showed ejection fraction of 30%, and was seen by sewage treatment plant operator and patient had a cardiac catheterization again showed ejection fraction of 30% and diffuse coronary artery disease, patient was diurese and became hypertensive patient was transferred to ICU patient was hydrated and was given albumin her blood pressure has trended now on medical floor, due to hypertension patient unable to tolerate Entresto, seen by cardiology patient euvolemic will continue Jardiance, patient states feeling better not as short of breath, patient states several months ago see had abdominal CT and was concerning for liver nodule to further evaluate will do MRI of the liver and further recommendation to follow. (2) Acute systolic (congestive) heart failure: Code(s): I50.21 - Acute systolic (congestive) heart failure Status: Acute Assessment and Plan: Acute systolic heart failure with a decline in ejection fraction down to 30%. Diuresis as tolerated by blood pressure Planned for Entresto as tolerated In shoe medical therapy for LV dysfunction Entresto and beta-gisela on hold at this time Echo 06/18/2022 EF 25-30% grade 1 diastolic dysfunction no significant valvular abnormality Lexiscan was abnormal and with large area of fixed defect with infarction the LCX territory. (3) Coronary artery disease: Code(s): I25.10 - Atherosclerotic heart disease of [place] coronary artery without angina pectoris Status: Acute Assessment and Plan: Diffuse coronary artery disease in left circumflex/OM and RCA, according to the sewage treatment plant operator if PCI is pursued it would be high risk and patient will be moved to a tertiary center for this. -cardiology following the patient -continue aspirin, clopidogrel (4) Chronic obstructive pulmonary disease: Code(s): J44.9 - Chronic obstructive pulmonary disease, unspecified Status: Acute Assessment and Plan: Continue bronchodilator (5) Diabetes mellitus: Code(s): E11.9 - Type 2 diabetes mellitus without complications Status: Chronic Assessment and Plan: Continue Accu-Cheks and sliding scale -continue Jardiance A1c 8.5 Plan Elevated troponin see above. EKG with new incomplete left bundle-branch block. CTA negative for PE showed congestive changes pulmonary edema and pleural effusions. Possible sleep apnea recent apnea link test with AHI 35 an RI of 38. She will need outpatient sleep study. DVT prophylaxis: Lovenox Stress ulcer prophylaxis: Not applicable Nutrition: Onto the night Hyperlipidemia: Takes Repatha. Peripheral vascular disease with history of bilateral iliac stents Code Status: Do not resuscitate Subjective Date/time s
[2022-06-25 17:54] LABS: Glucose Point of Care 132 mg/dl (65-105)
[2022-06-25] MEDS: DICLOFENAC SODIUM 1% 100 GM GEL (*BKC) 1 APPLIC TOPICAL (22:34)
[2022-06-26] VITALS (10 sets, daily range): BP systolic 93–110; BP diastolic 60–71; PULSE 66–94; RESP 14–18; TEMP 36.1–36.4; O2SAT 96–98
[2022-06-26 04:33] LABS: Glucose Point of Care 137 mg/dl (65-105)
[2022-06-26 06:43] LABS: Hematocrit 38.8 % (37.0-47.0); Hemoglobin 12.1 g/dL (12.0-15.0); Mean Corpuscular HGB Conc 31.2 g/dl (32-36); Mean Corpuscular Hemoglobin 26.1 pg (26-34); Mean Corpuscular Volume 83.6 fl (80-100); Mean Platelet Volume 12.2 fl (7.4-10.4); Platelet Count Result 227 k/mm3 (150-375); Red Blood Count 4.64 M/mm3 (4.2-5.4); Red Cell Distribution Width 13.5 % (11.5-14.5)
[2022-06-26 06:58] LABS: Anion Gap 16 mmol/L (8-16); Blood Urea Nitrogen 24 mg/dL (7-17); Calcium 8.8 mg/dL (8.4-10.2); Carbon Dioxide 24 mmol/L (22-30); Chloride 102 mmol/L (98-107); Estimated CRCL calculation 60 ml/min; Estimated Glomerular Filt Rate > 60; Glucose 189 mg/dL (65-110); Magnesium 2.2 mg/dL (1.6-2.3); Potassium 3.8 mmol/L (3.4-5.0); Sodium 142 mmol/L (137-145)
[2022-06-26] MEDS: ALBUTEROL SULFATE NEB 2.5 MG/3 ML INH INHALATION ×3 (08:18→19:54)
[2022-06-26] MEDS: IPRATROPIUM BR 0.02% INH SOLN 0.5 MG/2.5 ML VIAL INHALATION ×3 (08:18→19:53)
[2022-06-26 08:21] LABS: Glucose Point of Care 173 mg/dl (65-105)
[2022-06-26] MEDS: INSULIN ASPART (*BKC) 100 UNITS/ML SUB-Q ×3 (08:56→17:15)
[2022-06-26] MEDS: ENOXAPARIN 40 MG/0.4 ML SYRINGE SUB-Q (08:57)
[2022-06-26] MEDS: INSULIN GLARGINE (*BKC) 100 UNITS/ML 15 UNITS SUB-Q (08:57)
[2022-06-26] MEDS: DULoxetine HCL 30 MG CAPSULE.DR 60 MG PO ×2 (08:58→20:11)
[2022-06-26] MEDS: ASPIRIN 81 MG ENTERIC TABLET PO (08:58)
[2022-06-26] MEDS: CLOPIDOGREL BISULFATE 75 MG TABLET PO (08:58)
[2022-06-26] MEDS: PREGABALIN (*CRX) 50 MG CAPSULE 100 MG PO ×2 (08:59→20:11)
[2022-06-26] MEDS: SERTRALINE HCL 25 MG TABLET PO (08:59)
[2022-06-26] MEDS: EMPAGLIFLOZIN 10 MG TABLET PO (08:59)
[2022-06-26] MEDS: METOPROLOL SUCCINATE EXT REL 12.5 MG TABCR PO (09:01)
[2022-06-26 11:56] LABS: Glucose Point of Care 153 mg/dl (65-105)
--- NOTE | 2022-06-26 12:15 | PM.IMPN ---
Progress Note: A&P Assessment and Plan (1) Hypotension: Code(s): I95.9 - Hypotension, unspecified Status: Acute Assessment and Plan: Patient had a cardiac catheterization on 06/18/2022, started on Lasix for elevated LVEDP along with Entresto Patient received 500 mL IV fluids on the medical floor and transferred to the ICU since that her blood pressures have been stable Received albumin and has pain in the ICU EF 30% with pulmonary edema on chest x-ray and chest CT Blood pressure low normal continue to monitor Lasix beta-gisela and Entresto on hold slowly needs to restart as tolerated looks euvolemic on exam currently may be start bb and acei/arb small dose Beta-gisela started 06/22/2022 which he tolerated okay. May add small dose ACei/Arb per Cardiology. no further plans as not able to tolerate. Discussed with Cardiology 06/24/2022. Plans for discharge home if remains stable with no further plans of addition of any medications for her ischemic cardiomyopathy because of intolerance and hypotension 06/26/2022 interval history: patient is a 56-year-old female patient presented with shortness of breath, was found to have elevated tropes patient had a stress test it showed large severe nonreversible perfusion defect, and showed ejection fraction of 30%, and was seen by lathe set up operator and patient had a cardiac catheterization again showed ejection fraction of 30% and diffuse coronary artery disease, patient was diurese and became hypotensive patient was transferred to ICU patient was hydrated and was given albumin her blood pressure has trended up and now on medical floor, due to hypotension patient is unable to tolerate Entresto, seen by cardiology patient euvolemic will continue Jardiance, patient states feeling better not as short of breath, patient states several months ago she had abdominal CT and was concerning for liver nodule to further evaluate MRI was recommended however patient unable to have MRI due to metal in her Legs, patient be seen by Cardiology and further recommendation to follow. patient will have a PT OT. (2) Acute systolic (congestive) heart failure: Code(s): I50.21 - Acute systolic (congestive) heart failure Status: Acute Assessment and Plan: Acute systolic heart failure with a decline in ejection fraction down to 30%. Diuresis as tolerated by blood pressure Planned for Entresto as tolerated In shoe medical therapy for LV dysfunction Entresto and beta-gisela on hold at this time Echo 06/18/2022 EF 25-30% grade 1 diastolic dysfunction no significant valvular abnormality Lexiscan was abnormal and with large area of fixed defect with infarction the LCX territory. (3) Coronary artery disease: Code(s): I25.10 - Atherosclerotic heart disease of [place] coronary artery without angina pectoris Status: Acute Assessment and Plan: Diffuse coronary artery disease in left circumflex/OM and RCA, according to the lathe set up operator if PCI is pursued it would be high risk and patient will be moved to a tertiary center for this. -cardiology following the patient -continue aspirin, clopidogrel (4) Chronic obstructive pulmonary disease: Code(s): J44.9 - Chronic obstructive pulmonary disease, unspecified Status: Acute Assessment and Plan: Continue bronchodilator (5) Diabetes mellitus: Code(s): E11.9 - Type 2 diabetes mellitus without complications Status: Chronic Assessment and Plan: Continue Accu-Cheks and sliding scale -continue Jardiance A1c 8.5 Plan Elevated troponin see above. EKG with new incomplete left bundle-branch block. CTA negative for PE showed congestive changes pulmonary edema and pleural effusions. Possible sleep apnea recent apnea link test with AHI 35 an RI of 38. She will need outpatient sleep study. DVT prophylaxis: Lovenox Stress ulcer prophylaxis: Not applicable Nutrition: Onto the night Hyperlipidemia: Takes Repatha. Patience
[2022-06-26 16:53] LABS: Glucose Point of Care 159 mg/dl (65-105)
[2022-06-26] MEDS: HYDROcodone/acetaminophen (*CRX) 5-325 MG TABLET 1 TAB PO (17:33)
[2022-06-26 20:04] LABS: Glucose Point of Care 191 mg/dl (65-105)
[2022-06-27] VITALS (10 sets, daily range): BP systolic 105–110; BP diastolic 58–62; PULSE 80–92; RESP 16–18; TEMP 36–36.3; O2SAT 94–100
[2022-06-27] MEDS: HYDROcodone/acetaminophen (*CRX) 5-325 MG TABLET 1 TAB PO (00:11)
[2022-06-27] MEDS: ALPRAZolam (*CRX) 0.5 MG TABLET PO (00:11)
[2022-06-27] MEDS: IPRATROPIUM BR 0.02% INH SOLN 0.5 MG/2.5 ML VIAL INHALATION ×4 (02:26→21:10)
[2022-06-27] MEDS: ALBUTEROL SULFATE NEB 2.5 MG/3 ML INH INHALATION ×4 (02:27→21:10)
--- NOTE | 2022-06-27 06:45 | PC.NURSE ---
bed scale was not zero and was at 10 when did daily weight of 77.1 New weight should be 67.1. Bed should be zero when patient tries to get up with therapy. 06/27/22 @ 647am
[2022-06-27 06:48] LABS: Hematocrit 39.1 % (37.0-47.0); Hemoglobin 11.8 g/dL (12.0-15.0); Mean Corpuscular HGB Conc 30.2 g/dl (32-36); Mean Corpuscular Hemoglobin 25.9 pg (26-34); Mean Corpuscular Volume 85.7 fl (80-100); Mean Platelet Volume 11.3 fl (7.4-10.4); Platelet Count Result 218 k/mm3 (150-375); Red Blood Count 4.56 M/mm3 (4.2-5.4); Red Cell Distribution Width 13.4 % (11.5-14.5); White Blood Count 7.3 K/mm3 (4.5-10.0)
[2022-06-27 06:57] LABS: Anion Gap 12 mmol/L (8-16); Blood Urea Nitrogen 25 mg/dL (7-17); Calcium 8.6 mg/dL (8.4-10.2); Carbon Dioxide 22 mmol/L (22-30); Chloride 105 mmol/L (98-107); Estimated CRCL calculation 67 ml/min; Estimated Glomerular Filt Rate > 60; Glucose 192 mg/dL (65-110); Magnesium 2.3 mg/dL (1.6-2.3); Potassium 3.9 mmol/L (3.4-5.0); Sodium 139 mmol/L (137-145)
[2022-06-27 08:15] LABS: Glucose Point of Care 142 mg/dl (65-105)
[2022-06-27] MEDS: INSULIN ASPART (*BKC) 100 UNITS/ML SUB-Q ×4 (09:11→17:33)
[2022-06-27] MEDS: ENOXAPARIN 40 MG/0.4 ML SYRINGE SUB-Q (09:14)
[2022-06-27] MEDS: SERTRALINE HCL 25 MG TABLET PO (09:14)
[2022-06-27] MEDS: EMPAGLIFLOZIN 10 MG TABLET PO (09:14)
[2022-06-27] MEDS: METOPROLOL SUCCINATE EXT REL 12.5 MG TABCR PO (09:14)
[2022-06-27] MEDS: DULoxetine HCL 30 MG CAPSULE.DR 60 MG PO (09:15)
[2022-06-27] MEDS: ASPIRIN 81 MG ENTERIC TABLET PO (09:15)
[2022-06-27] MEDS: CLOPIDOGREL BISULFATE 75 MG TABLET PO (09:15)
[2022-06-27] MEDS: INSULIN GLARGINE (*BKC) 100 UNITS/ML 15 UNITS SUB-Q (09:18)
[2022-06-27] MEDS: PREGABALIN (*CRX) 50 MG CAPSULE 100 MG PO (09:52)
[2022-06-27 11:42] LABS: Glucose Point of Care 298 mg/dl (65-105)
--- NOTE | 2022-06-27 13:36 | PM.IMPN ---
Progress Note: A&P Assessment and Plan (1) Hypotension: Code(s): I95.9 - Hypotension, unspecified Status: Acute Assessment and Plan: Patient had a cardiac catheterization on 06/18/2022, started on Lasix for elevated LVEDP along with Entresto Patient received 500 mL IV fluids on the medical floor and transferred to the ICU since that her blood pressures have been stable Received albumin and has pain in the ICU EF 30% with pulmonary edema on chest x-ray and chest CT Blood pressure low normal continue to monitor Lasix beta-gisela and Entresto on hold slowly needs to restart as tolerated looks euvolemic on exam currently may be start bb and acei/arb small dose Beta-gisela started 06/22/2022 which he tolerated okay. May add small dose ACei/Arb per Cardiology. no further plans as not able to tolerate. Discussed with Cardiology 06/24/2022. Plans for discharge home if remains stable with no further plans of addition of any medications for her ischemic cardiomyopathy because of intolerance and hypotension 06/27/2022 interval history: patient is a 56-year-old female patient presented with shortness of breath, was found to have elevated tropes patient had a stress test it showed large severe nonreversible perfusion defect, and showed ejection fraction of 30%, and was seen by chemical plant operator and patient had a cardiac catheterization again showed ejection fraction of 30% and diffuse coronary artery disease, patient was diurese and became hypotensive patient was transferred to ICU patient was hydrated and was given albumin her blood pressure has trended up and now on medical floor, due to hypotension patient is unable to tolerate Entresto, seen by cardiology patient euvolemic will continue Jardiance, patient now clinically stable patient can be discharged back to nursing, patient states feeling better not as short of breath, patient states several months ago she had abdominal CT and was concerning for liver nodule to further evaluate MRI was recommended however patient patient had MRI and liver was essentially normal patient be seen by Cardiology okay to discharge, and further recommendation to follow. patient will have a PT OT. (2) Acute systolic (congestive) heart failure: Code(s): I50.21 - Acute systolic (congestive) heart failure Status: Acute Assessment and Plan: Acute systolic heart failure with a decline in ejection fraction down to 30%. Diuresis as tolerated by blood pressure Planned for Entresto as tolerated In shoe medical therapy for LV dysfunction Entresto and beta-gisela on hold at this time Echo 06/18/2022 EF 25-30% grade 1 diastolic dysfunction no significant valvular abnormality Lexiscan was abnormal and with large area of fixed defect with infarction the LCX territory. (3) Coronary artery disease: Code(s): I25.10 - Atherosclerotic heart disease of [place] coronary artery without angina pectoris Status: Acute Assessment and Plan: Diffuse coronary artery disease in left circumflex/OM and RCA, according to the chemical plant operator if PCI is pursued it would be high risk and patient will be moved to a tertiary center for this. -cardiology following the patient -continue aspirin, clopidogrel (4) Chronic obstructive pulmonary disease: Code(s): J44.9 - Chronic obstructive pulmonary disease, unspecified Status: Acute Assessment and Plan: Continue bronchodilator (5) Diabetes mellitus: Code(s): E11.9 - Type 2 diabetes mellitus without complications Status: Chronic Assessment and Plan: Continue Accu-Cheks and sliding scale -continue Jardiance A1c 8.5 Plan Elevated troponin see above. EKG with new incomplete left bundle-branch block. CTA negative for PE showed congestive changes pulmonary edema and pleural effusions. Possible sleep apnea recent apnea link test with AHI 35 an RI of 38. She will need outpatient sleep study. DVT prophylaxis: Lovenox Stress u
--- NOTE | 2022-06-27 14:42 | PM.DS ---
DS: Admitting Diagnosis Discharge Date 06/27/2022 Admitting Diagnosis shortness of breath DS: Discharge Diagnosis Discharge Diagnosis (1) Hypotension: Code(s): I95.9 - Hypotension, unspecified Status: Acute Assessment and Plan: Patient had a cardiac catheterization on 06/18/2022, started on Lasix for elevated LVEDP along with Entresto Patient received 500 mL IV fluids on the medical floor and transferred to the ICU since that her blood pressures have been stable Received albumin and has pain in the ICU EF 30% with pulmonary edema on chest x-ray and chest CT Blood pressure low normal continue to monitor Lasix beta-gisela and Entresto on hold slowly needs to restart as tolerated looks euvolemic on exam currently may be start bb and acei/arb small dose Beta-gisela started 06/22/2022 which he tolerated okay. May add small dose ACei/Arb per Cardiology. no further plans as not able to tolerate. Discussed with Cardiology 06/24/2022. Plans for discharge home if remains stable with no further plans of addition of any medications for her ischemic cardiomyopathy because of intolerance and hypotension 06/27/2022 interval history: patient is a 56-year-old female patient presented with shortness of breath, was found to have elevated tropes patient had a stress test it showed large severe nonreversible perfusion defect, and showed ejection fraction of 30%, and was seen by mid level developer and patient had a cardiac catheterization again showed ejection fraction of 30% and diffuse coronary artery disease, patient was diurese and became hypotensive patient was transferred to ICU patient was hydrated and was given albumin her blood pressure has trended up and now on medical floor, due to hypotension patient is unable to tolerate Entresto, seen by cardiology patient euvolemic will continue Jardiance, patient now clinically stable patient can be discharged back to nursing, patient states feeling better not as short of breath, patient states several months ago she had abdominal CT and was concerning for liver nodule to further evaluate MRI was recommended however patient patient had MRI and liver was essentially normal patient be seen by Cardiology okay to discharge, and further recommendation to follow. patient will have a PT OT. (2) Acute systolic (congestive) heart failure: Code(s): I50.21 - Acute systolic (congestive) heart failure Status: Acute Assessment and Plan: Acute systolic heart failure with a decline in ejection fraction down to 30%. Diuresis as tolerated by blood pressure Planned for Entresto as tolerated In shoe medical therapy for LV dysfunction Entresto and beta-gisela on hold at this time Echo 06/18/2022 EF 25-30% grade 1 diastolic dysfunction no significant valvular abnormality Lexiscan was abnormal and with large area of fixed defect with infarction the LCX territory. (3) Coronary artery disease: Code(s): I25.10 - Atherosclerotic heart disease of [place] coronary artery without angina pectoris Status: Acute Assessment and Plan: Diffuse coronary artery disease in left circumflex/OM and RCA, according to the mid level developer if PCI is pursued it would be high risk and patient will be moved to a tertiary center for this. -cardiology following the patient -continue aspirin, clopidogrel (4) Chronic obstructive pulmonary disease: Code(s): J44.9 - Chronic obstructive pulmonary disease, unspecified Status: Acute Assessment and Plan: Continue bronchodilator (5) Diabetes mellitus: Code(s): E11.9 - Type 2 diabetes mellitus without complications Status: Chronic Assessment and Plan: Continue Accu-Cheks and sliding scale -continue Jardiance A1c 8.5 Plan Elevated troponin see above. EKG with new incomplete left bundle-branch block. CTA negative for PE showed congestive changes pulmonary edema and pleural effusions. Possible sleep apnea recent apnea link clementina
[2022-06-27 16:39] LABS: Glucose Point of Care 88 mg/dl (65-105)
[2022-06-28 00:10] LABS: Glucose Point of Care 171 mg/dl (65-105)
--- NOTE | 2022-07-21 18:25 | PM.DS ---
DS: Admitting Diagnosis Discharge Date 06/27/22 Admitting Diagnosis shortness of breath DS: Discharge Diagnosis Discharge Diagnosis (1) Hypotension: Code(s): I95.9 - Hypotension, unspecified Status: Acute Assessment and Plan: Patient had a cardiac catheterization on 06/18/2022, started on Lasix for elevated LVEDP along with Entresto Patient received 500 mL IV fluids on the medical floor and transferred to the ICU since that her blood pressures have been stable Received albumin and has pain in the ICU EF 30% with pulmonary edema on chest x-ray and chest CT Blood pressure low normal continue to monitor Lasix beta-gisela and Entresto on hold slowly needs to restart as tolerated looks euvolemic on exam currently may be start bb and acei/arb small dose Beta-gisela started 06/22/2022 which he tolerated okay. May add small dose ACei/Arb per Cardiology. no further plans as not able to tolerate. Discussed with Cardiology 06/24/2022. Plans for discharge home if remains stable with no further plans of addition of any medications for her ischemic cardiomyopathy because of intolerance and hypotension 06/27/2022 interval history: patient is a 56-year-old female patient presented with shortness of breath, was found to have elevated tropes patient had a stress test it showed large severe nonreversible perfusion defect, and showed ejection fraction of 30%, and was seen by lockstitch back maker and patient had a cardiac catheterization again showed ejection fraction of 30% and diffuse coronary artery disease, patient was diurese and became hypotensive patient was transferred to ICU patient was hydrated and was given albumin her blood pressure has trended up and now on medical floor, due to hypotension patient is unable to tolerate Entresto, seen by cardiology patient euvolemic will continue Jardiance, patient now clinically stable patient can be discharged back to nursing, patient states feeling better not as short of breath, patient states several months ago she had abdominal CT and was concerning for liver nodule to further evaluate MRI was recommended however patient patient had MRI and liver was essentially normal patient be seen by Cardiology okay to discharge, and further recommendation to follow. patient will have a PT OT. (2) Acute systolic (congestive) heart failure: Code(s): I50.21 - Acute systolic (congestive) heart failure Status: Acute Assessment and Plan: Acute systolic heart failure with a decline in ejection fraction down to 30%. Diuresis as tolerated by blood pressure Planned for Entresto as tolerated In shoe medical therapy for LV dysfunction Entresto and beta-gisela on hold at this time Echo 06/18/2022 EF 25-30% grade 1 diastolic dysfunction no significant valvular abnormality Lexiscan was abnormal and with large area of fixed defect with infarction the LCX territory. (3) Coronary artery disease: Code(s): I25.10 - Atherosclerotic heart disease of [place] coronary artery without angina pectoris Status: Acute Assessment and Plan: Diffuse coronary artery disease in left circumflex/OM and RCA, according to the lockstitch back maker if PCI is pursued it would be high risk and patient will be moved to a tertiary center for this. -cardiology following the patient -continue aspirin, clopidogrel (4) Chronic obstructive pulmonary disease: Code(s): J44.9 - Chronic obstructive pulmonary disease, unspecified Status: Acute Assessment and Plan: Continue bronchodilator (5) Diabetes mellitus: Code(s): E11.9 - Type 2 diabetes mellitus without complications Status: Chronic Assessment and Plan: Continue Accu-Cheks and sliding scale -continue Jardiance A1c 8.5 Plan Elevated troponin see above. EKG with new incomplete left bundle-branch block. CTA negative for PE showed congestive changes pulmonary edema and pleural effusions. Possible sleep apnea recent apnea link test
== END 2022-06-27 21:35 | disposition home or self-care (01) | DRG 287 ==
LOC: ANHED 09:29 → ANHIMU 16:34 → ANHICU 06-18 20:49 → ANHIMU 06-19 14:49 → ANH3MEDSUR 06-24 21:48
PROVIDERS: Hospitalist; Internal Medicine; Internal Medicine Cardiovascular Disease; Physician Assistant; Admitting Provider Family Medicine; Emergency Provider Emergency Medicine; PCP Emergency Medicine; Visit Provider Internal Medicine
PROC: 4A023N7 Measurement of Cardiac Sampling and Pressure, Left Heart, Percutaneous Approach (ICD-10-PCS; CPT 93452; principal; 2022-06-18 09:15)
PROC: 4A023N7 Measurement of Cardiac Sampling and Pressure, Left Heart, Percutaneous Approach (ICD-10-PCS; CPT 36140; 2022-06-18 09:15)
DX: I50.23 Acute on chronic systolic (congestive) heart failure (principal); I25.10 Atherosclerotic heart disease of native coronary artery without angina pectoris; I25.5 Ischemic cardiomyopathy; J44.9 Chronic obstructive pulmonary disease, unspecified; E11.9 Type 2 diabetes mellitus without complications; Z20.822 Contact with and (suspected) exposure to COVID-19; I95.9 Hypotension, unspecified; E78.5 Hyperlipidemia, unspecified; E11.42 Type 2 diabetes mellitus with diabetic polyneuropathy; E11.51 Type 2 diabetes mellitus with diabetic peripheral angiopathy without gangrene; R00.0 Tachycardia, unspecified; E87.6 Hypokalemia; I73.9 Peripheral vascular disease, unspecified; I44.7 Left bundle-branch block, unspecified; Z66 Do not resuscitate; Z95.5 Presence of coronary angioplasty implant and graft; Z89.511 Acquired absence of right leg below knee; Z90.49 Acquired absence of other specified parts of digestive tract; Z90.710 Acquired absence of both cervix and uterus; Z87.891 Personal history of nicotine dependence; Z79.4 Long term (current) use of insulin
CPT/HCPCS: 36140; 36415; 71045; 71275; 74183; 78452; 80048; 80053; 80069; 81001; 82550; 82948; 83036; 83605; 83690; 83735; 83880; 84443; 84484; 85025; 85027; 85380; 85610; 85730; 86140; 87502; 93005; 93017; 93458; 94640; 94762; 96365; 96366; 96367; 96372; 96375; 96376; 97161; 97165; 97530; 97535; 99285; A9270; A9502; A9577; C1769; C1887; C1894; C8929; G0378; J1644; J1650; J1815; J1940; J2250; J2370; J2785; J3010; J3475; J3480; J7030; J7040; P9047; Q9957; Q9967; U0003; U0005

== ENCOUNTER 2022-07-10 09:52 | Inpatient (IN) | payer MEDICARE, MEDICAID, SELFPAY ==
[2022-07-10] VITALS (12 sets, daily range): BP systolic 103–109; BP diastolic 59–91; PULSE 85–109; RESP 17–35; TEMP 36.2–36.6; O2SAT 88–100; BMI 28.0
--- NOTE | ~2022-07-10 | XR_ITS ---
XR chest 1V portable DATE: 07/10/2022 10:38 INDICATION: Shortness of breath TECHNIQUE: Portable AP chest views on 07/10/2022 at 1030 hours COMPARISON: 06/24/2022 portable AP chest FINDINGS: There is prominence of minor fissure suggesting subpleural edema. There is mild pulmonary v ascular congestion. There are Debby B-lines suggesting pulmonary interstitial edema. Heart size appe ars within normal range. Aortic arch calcification. There are mild infiltrates of the lower lung zones primarily. Differential diagnosis includes pulmona ry edema, pneumonia, aspiration. Vertebroplasty at L1. Diffuse osteopenia. Degenerative spurring of the thoracic spine. IMPRESSION: Congestive changes including evidence of subpleural and pulmonary interstitial edema Bilateral lower lung infiltrates which may be due to pulmonary edema, pneumonia and/or aspiration Prominent osteopenia Vertebroplasty at L1 Reviewed, dictated and finalized at location A. TRONIC ORGAN MECHANIC IMPRESSION: Congestive changes including evidence of subpleural and pulmonary i nterstitial edema Bilateral lower lung infiltrates which may be due to pulmonary edema, pneumonia and/or aspiration Prominent osteopenia Vertebroplasty at L1
--- NOTE | 2022-07-10 09:53 | ECG_ITS ---
Measurements Intervals [place] Rate: 105 P: 82 [place]: 175 QRS: -45 QRSD: 120 T: 85 QT: 374 QTc: 494 Interpretive Statements SINUS TACHYCARDIA LEFT AXIS DEVIATION INTRAVENTRICULAR CONDUCTION DELAY NONSPECIFIC ST & T-WAVE ABNORMALITY- HIGH LATERAL LEADS BASELINE ARTIFACT- I, II, III, AVR, AVL, AVF, V1-V7 ABNORMAL ECG COMPARED TO ECG 06/23/2022 02:51:09 SINUS TACHYCARDIA NOW PRESENT INTRAVENTRICULAR CONDUCTION DELAY NOW PRESENT Electronically Signed On 07-10-2022 10:14:50 [employer] DRIVER by Mike Bernardo D.O.
[2022-07-10 10:13] LABS: Basophils Absolute Auto 0.1 K/mm3 (0.0-0.1); Basophils Percent Auto 0.8 % (0.2-1.2); Eosinophils Absolute Auto 0.3 K/mm3 (0-0.3); Eosinophils Percent Auto 2.7 % (0-4.4); Hematocrit 43.4 % (37.0-47.0); Hemoglobin 13.3 g/dL (12.0-15.0); Immature Granulocyte Absolute 0.06 K/mm3 (0.00-0.031); Immature Granulocyte Percent A 0.7 % (0-0.5); Lymphocytes Percent Auto 26.1 % (18.3-44.2); Mean Corpuscular HGB Conc 30.6 g/dl (32-36); Mean Corpuscular Hemoglobin 26.5 pg (26-34); Mean Corpuscular Volume 86.6 fl (80-100); Mean Platelet Volume 11.7 fl (7.4-10.4); Monocytes Absolute Auto 0.5 K/mm3 (0.1-0.6); Monocytes Percent Auto 5.7 % (2.6-8.5); Neutrophils Absolute Auto 5.9 K/mm3 (1.3-6.7); Platelet Count Result 211 k/mm3 (150-375); Red Blood Count 5.01 M/mm3 (4.2-5.4); Red Cell Distribution Width 14.2 % (11.5-14.5); White Blood Count 9.2 K/mm3 (4.5-10.0)
[2022-07-10 10:24] LABS: Alanine Aminotransferase 17 U/L (6-35); Albumin Level 4.3 g/dL (3.5-5.1); Alkaline Phosphatase 87 U/L (38-126); Anion Gap 14 mmol/L (8-16); Aspartate Amino Transferase 23 U/L (14-36); Bilirubin,Total 0.4 mg/dL (0.2-1.3); Blood Urea Nitrogen 11 mg/dL (7-17); Calcium 8.9 mg/dL (8.4-10.2); Carbon Dioxide 18 mmol/L (22-30); Chloride 108 mmol/L (98-107); Estimated CRCL calculation 76 ml/min; Estimated Glomerular Filt Rate > 60; Glucose 346 mg/dL (65-110); Potassium 3.3 mmol/L (3.4-5.0); Sodium 140 mmol/L (137-145)
--- NOTE | 2022-07-10 10:24 | PCRCNOTE ---
Pt refused ABG. notified.
[2022-07-10 10:49] LABS: NT Pro B Type Natriuretic Pept 1910 pg/mL (5-100); Troponin I 0.224 ng/mL (0.000-0.034)
[2022-07-10 10:49] LABS: INR 1.1; Prothrombin Time 13.4 Seconds (11.1-14.7)
[2022-07-10 10:50] LABS: Partial Thromboplastin Time 24.1 SECONDS (22.3-36.8)
[2022-07-10 11:01] LABS: Lactic Acid Reflex 2.4 mmol/L (0.7-2.0)
--- NOTE | 2022-07-10 11:29 | ED.SOB ---
HPI - SOB/Dyspnea General Chief Complaint: Shortness of Breath/Dyspnea Stated Complaint: sob x days, worsening x 1 hour Time Seen by Provider: 07/10/22 09:53 Source: patient, EMS, RN notes reviewed and old records reviewed Mode of arrival: EMS History of Present Illness HPI Narrative: This is a 56 year old female with history of CHF with EF 30% , CAD, COPD who presents for evaluation of shortness of breath . Patient was admitted to [facility] and discharged approximately 2 weeks ago. She states she presented at that time for same issues, and she has been unable get any of her new prescriptions since that time. She has continued to have shortness of breath over several days and it worsened this morning. EMS reports patient oxygen saturation was in the 80s on arrival and her respiratory rate was 24 . SHe was placed on CPAP by EMS due to concern for CHF and she was also given 1 spray of nitroglycerin. Patient denies having chest pain, fever, chills, nausea or vomiting. She denies worsening cough. Related Data Home Medications Medication Instructions Recorded Confirmed insulin glargine 100 unit/mL (3 20 unit subcut BIDWM 03/30/22 07/10/22 mL) subcutaneous pen (Basaglar KwikPen U-100 Insulin) insulin lispro 100 unit/mL 10 unit subcut TIDWM 03/30/22 07/10/22 subcutaneous solution (Admelog U-100 Insulin lispro) semaglutide 0.25 mg or 0.5 mg (2 1 mg subcut WEEKLY 03/30/22 07/10/22 mg/1.5 mL) subcutaneous pen injector (Ozempic) duloxetine 30 mg capsule,delayed 60 mg PO BID 06/15/22 07/10/22 release (Cymbalta) evolocumab 140 mg/mL subcutaneous 140 mg subcut [id number] 06/15/22 07/10/22 pen injector (Repatha SureClick) pregabalin 50 mg capsule (Lyrica) 100 mg PO Q12H 06/15/22 07/10/22 Allergies Allergy/AdvReac Type Severity Reaction Status Date / Time propofol Allergy Agitated Verified 05/02/22 01:11 [id number]-WfS Reductase AdvReac Intermediate MYALGIAS Verified 06/24/22 16:19 Inhibitor Review of Systems Review of Systems: All systems reviewed & are unremarkable except as noted in HPI and below Constitutional: Constitutional: Denies chills, Denies fatigue and Denies fever(s) Cardiovascular: Cardiovascular: Denies chest pain and Denies radiating jaw, neck or arm pain Respiratory: Respiratory: Reports cough and Reports dyspnea Gastrointestinal: Gastrointestinal: Denies abdominal pain, Denies nausea and Denies vomiting [facility] Past Medical History Medical History Anxiety Charcot's joint of foot in type 2 diabetes mellitus Of the right foot Chickenpox Chronic obstructive pulmonary disease Coronary artery disease Left anterior descending stent 01/2019. 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 Peripheral vascular disease due to secondary diabetes Surgical History Surgical History History of appendectomy History of section History of hysterectomy Due to cervical changes. History of tonsillectomy and adenoidectomy Hx of BKA Right 11/19/20 at [facility] Status post cholecystectomy Stented coronary artery X1 Family History Family History Sibling Diabetes mellitus Mother Heart failure Cardiomegaly Arthritis Atrial fibrillation Family history of osteoporosis Family history of Alzheimer's disease Hypertension Cardiomyopathy Acute myocardial infarction History of
[2022-07-10] MEDS: ASPIRIN 81 MG CHEWABLE TABLET 324 MG PO (11:53)
[2022-07-10 11:54] LABS: Magnesium 1.7 mg/dL (1.6-2.3)
[2022-07-10] MEDS: FUROSEMIDE INJ 40 MG/4 ML VIAL IV PUSH ×2 (11:54→20:37)
--- NOTE | 2022-07-10 12:10 | PC.NURSE ---
Pt refused 40 oral potassium pills because they are too big and she can't swallow them. Explained to the patient the importance of potassium. Dr. Ocampo informed. ordered powdered potassium. Pt refused powdered potassium because it tastes like sand no matter what you put it in. Dr. Ocampo to the bedside to make sure the patient understands the importance of potassium. Pt states she understands and still refuses.
[2022-07-10 13:24] LABS: Influenza A QL RT-PCR Negative (Negative); Influenza B QL RT-PCR Negative (Negative); SARS-CoV-2 RNA PCR Negative
--- NOTE | 2022-07-10 13:30 | PM.IMHP ---
H&P: HPI History of Present Illness Date/Time: 07/10/22 13:30 Chief Complaint: Shortness of breath. Narrative: This is a 56-year-old female with heart failure with reduced ejection fraction most recent EF of 25 to 30%, COPD, coronary artery disease, insulin dependent diabetes, hyperlipidemia, and peripheral vascular disease who presented to the ED via EMS from home for evaluation of shortness of breath. She was recently hospitalized with elevated troponins after presenting with shortness of breath. Stress test showed a large, severe non reversible perfusion defect and a subsequent cardiac catheterization revealed diffuse disease without intervention and it was felt that she would benefit from being seen at a tertiary care facility for high risk PCI. She was discharged on 06/27/2022 with new prescriptions for aspirin, clopidogrel, empagliflozin, and metoprolol which she has not yet picked up for unclear reasons. In any event, she reports doing fine up until this morning when she was wakened from sleep at about a.m. with sudden onset of shortness of breath and mid chest heaviness. She called 911 and on EMS arrival her SpO2 was in the mid 80s and she was placed on CPAP, transitioned to BiPAP on arrival. Her chest x-ray showed congestive changes and she was given a dose of IV furosemide. Potassium was ordered as her level was low (3.3) but she refused oral and liquid potassium. She also received refused an ABG. At the time my evaluation she is resting comfortably on BiPAP. She denies fever, chills, sweats, cold and flu symptoms, current chest pain, pleuritic pain, palpitations, nausea, vomiting, sweats, and edema. Review of Systems Review of Systems: Twelve systems were reviewed and are negative except for as per HPI. [facility] Past Medical History Medical History Anxiety Charcot's joint of foot in type 2 diabetes mellitus Of the right foot Chickenpox Chronic obstructive pulmonary disease Coronary artery disease Left anterior descending stent 01/2019. 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 Peripheral vascular disease due to secondary diabetes Surgical History Surgical History History of appendectomy History of section History of hysterectomy Due to cervical changes. History of tonsillectomy and adenoidectomy Hx of BKA Right 11/19/20 at [facility] Status post cholecystectomy Stented coronary artery X1 Family History Family History Sibling Diabetes mellitus Mother Heart failure Cardiomegaly Arthritis Atrial fibrillation Family history of osteoporosis Family history of Alzheimer's disease Hypertension Cardiomyopathy Acute myocardial infarction History of heart artery stent Congestive heart failure Daughter Anxiety Father Esophagus cancer Cancer of spinal column Social History Social History (Updated 07/10/22 @ 20:18 by Mireya Matson PA-C) Social History: Surrogate medical decision maker: Jass Arciniega, son. Code status: Full code. Smoking packs per day: 1.5 Smoking cigarettes per day: 30.0 Years smoked: 20 Smoking pack-years: 30.00 Smoking status: Former smoker Additional smoking assessment comments: quit 2020 Lack of Transportation: No Lack of Food: Sometimes True Current Housing: I Have Housing Concerned About Future Housing: No Difficulty Pay
[2022-07-10 13:35] LABS: Reflex Lactic Acid Yes or No Add Lactic
--- NOTE | 2022-07-10 14:27 | PM.CNCAR ---
Assessment and Plan Assessment and plan (1) Acute on chronic systolic heart failure: Code(s): I50.23 - Acute on chronic systolic (congestive) heart failure Status: Acute (2) Peripheral arterial disease: Code(s): I73.9 - Peripheral vascular disease, unspecified Status: Acute (3) Elevated troponin: Code(s): R77.8 - Other specified abnormalities of plasma proteins Status: Acute (4) Coronary artery disease: Code(s): I25.10 - Atherosclerotic heart disease of [place] coronary artery without angina pectoris Status: Acute (5) Chronic obstructive pulmonary disease: Code(s): J44.9 - Chronic obstructive pulmonary disease, unspecified Status: Acute Plan Recent TTE showing LVEF 25-30%, which was done on 06/18. No need to repeat echocardiogram this admission. Agree with IV diuresis. Continue with intermittent IV diuresis. Monitor strict I/Os. Continue ASA, Plavix for her CAD. On Repatha at home. For her heart failure, would continue with Jardiance. Since patient has not been taking her Metoprolol, would hold beta-blockers until patient is euvolemic and then restart beta-gisela therapy with Metoprolol succinate (patient had been discharged on Metoprolol tartrate, however tartrate is not indicated in patients with HFrEF). Did not tolerate Entresto last admission, however, if BP is okay this admission, would attempt a low-dose ACEi/ARB. History of Present Illness History of Present Illness Consult date/time: 07/10/22 14:27 Requesting physician: Nahomy Ocampo MD Consult reason: shortness of breath Reason For Visit: CHF/Acute Respiratory Failure Narrative: We are being consulted for heart failure. This is a 56-year-old female who was recently discharged from here for decompensated heart failure. She has a history of CAD, PAD who presented last admission with signs/symptoms of decompensated heart failure along with chest tightness. Found to have new diagnosis of heart failure with reduced ejection fraction with an LVEF 25-30%. Had undergone a Lexiscan which also showed LVEF 30% with a large infarct in the LCX territory with no reversible ischemia. Underwent cardiac cath which showed patent LAD stent, diffuse disease of LCX/OM which were small caliber vessels, a heavily diffusely calcified RCA with obstructive disease in the distal RCA; given the significant calcifications, we did not perform PCI as we do not have atherectomy tools at [place]. Since patient did not have further chest pain, medical management was pursued with ASA, Plavix with recommendations to follow-up with her outpatient Vermin Exterminator. We had attempted Entresto, however, patient did not tolerate due to low blood pressure. Patient presents this time with shortness of breath. States she has not been able to get any of her prescriptions since discharge. Patient has had shortness of breath over past few days and felt like it progressively worsened. Per EMS reports, patient was hypoxic into the 80s. No chest pain. ED evaluation thus far shows mildly elevated troponin of 0.224 (lower than last admission), NT pro BNP of 1910, CXR showing pulmonary edema, EKG showing sinus tachycardia. Review of Systems Review of Systems: 12-point ROS obtained. Negative, unless stated in HPI. [facility] Past Medical History Medical History Anxiety Charcot's joint of foot in type 2 diabetes mellitus Of the right foot Chickenpox Chronic obstructive pulmonary disease Coronary artery disease Left anterior descending stent 01/2019. Usual tool sharpener is Dr. 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 Depression Diabetes mellitus with insulin therapy Diabetic peripheral neuropathy Fracture of proximal end of left humerus Hypercholesterolemia Implantable loop recorder present L1 vertebral fracture 2020 Left foot pain Measles Metacarpal bone fracture Mononucleosis Mumps Pelvic fracture 2020 Peripheral arterial disease Stenti
--- NOTE | 2022-07-10 14:34 | ADMGEN ---
This patient, Tiff Vaughn, was admitted to IMU Room 203-01. Patient/family oriented to hospital policies and general routines including ID bracelet, bed and alarms, visiting hours, pain management, procedures, bathroom and other care routines, personal items, smoking policy, room service/diet, and visiting hours. Information on how to activate the Rapid Response Team has been discussed. Patient/Family are encouraged to report perceived risks to care and to ask questions if they do not understand what they are told or what they should do.
[2022-07-10 14:56] LABS: Troponin I 0.789 ng/mL (0.000-0.034)
[2022-07-10 15:06] LABS: Lactic Acid 1.7 mmol/L (0.7-2.0)
[2022-07-10 17:05] LABS: Glucose Point of Care 244 mg/dl (65-105)
[2022-07-10 17:08] LABS: Fractional Inspired Oxygen 30 %; HCO3 VBG 24.8 mEq/l (24.0-30.0); PCO2 VBG 32.5 mmHg (42.0-48.0); PO2 VBG 63.1 mmHg (35.0-45.0)
[2022-07-10 17:10] LABS: Device NON-INVASIVE VENT; Non-Invasive Inspiratory Pressure 14 CMH2O; Non-Invasive Vent Rate 12 /MIN; pH VBG 7.501 (7.300-7.400)
[2022-07-10 17:11] LABS: Non-Invasive Expiratory Pressure 8 CMH2O
[2022-07-10 17:55] LABS: Magnesium 1.7 mg/dL (1.6-2.3)
[2022-07-10 18:28] LABS: Alanine Aminotransferase 17 U/L (6-35); Albumin Level 3.9 g/dL (3.5-5.1); Alkaline Phosphatase 85 U/L (38-126); Anion Gap 8 mmol/L (8-16); Aspartate Amino Transferase 24 U/L (14-36); Bilirubin,Total 0.5 mg/dL (0.2-1.3); Blood Urea Nitrogen 11 mg/dL (7-17); Calcium 8.6 mg/dL (8.4-10.2); Carbon Dioxide 21 mmol/L (22-30); Chloride 109 mmol/L (98-107); Estimated CRCL calculation 85 ml/min; Estimated Glomerular Filt Rate > 60; Glucose 238 mg/dL (65-110); Potassium 3.4 mmol/L (3.4-5.0); Sodium 138 mmol/L (137-145)
[2022-07-10 20:44] LABS: Glucose Point of Care 316 mg/dl (65-105)
[2022-07-10] MEDS: FAMOTIDINE 20 MG TABLET PO (20:51)
[2022-07-10] MEDS: PREGABALIN (*CRX) 50 MG CAPSULE 100 MG PO (21:18)
[2022-07-10] MEDS: POTASSIUM CHLORIDE 20 MEQ TABLET 40 MEQ PO (21:18)
[2022-07-10] MEDS: INSULIN ASPART (*BKC) 100 UNITS/ML 6 UNITS SUB-Q (21:19)
[2022-07-10] MEDS: POTASSIUM CHLORIDE INJ 40 MEQ in SODIUM CHLORIDE 0.9% IV 500 ML 130 MEQ IVPB (21:37)
[2022-07-10] MEDS: DULoxetine HCL 60 MG CAPSULE.DR PO (21:39)
[2022-07-10] MEDS: METOPROLOL TARTRATE 12.5 MG TABLET PO (21:39)
[2022-07-10] MEDS: ALPRAZolam (*CRX) 0.5 MG TABLET PO (23:42)
[2022-07-11] VITALS (13 sets, daily range): BP systolic 91–123; BP diastolic 53–70; PULSE 76–98; RESP 14–20; TEMP 35.7–36.6; O2SAT 94–98
--- NOTE | 2022-07-11 01:38 | PC.NURSE ---
Pt had order for IV potassium and refused due to IV burning in the past. RN asked pt if she would be able to take po either pill or powder. She stated would try the pill form, but has not been able to take it in the past. Order for PO obtained but pt was unable to swallow. Pt agreed to try IV KCl at a slower rate. Another order obtained for IV KCl. As of this time, pt is having no complaints with potassium infusion.
[2022-07-11 03:34] LABS: Basophils Absolute Auto 0.1 K/mm3 (0.0-0.1); Basophils Percent Auto 0.6 % (0.2-1.2); Eosinophils Absolute Auto 0.2 K/mm3 (0-0.3); Eosinophils Percent Auto 1.5 % (0-4.4); Hematocrit 37.5 % (37.0-47.0); Hemoglobin 11.8 g/dL (12.0-15.0); Immature Granulocyte Absolute 0.04 K/mm3 (0.00-0.031); Immature Granulocyte Percent A 0.4 % (0-0.5); Lymphocytes Absolute Auto 2.72 K/mm3 (0.9-3.2); Lymphocytes Percent Auto 24.5 % (18.3-44.2); Mean Corpuscular HGB Conc 31.5 g/dl (32-36); Mean Corpuscular Hemoglobin 26.3 pg (26-34); Mean Corpuscular Volume 83.7 fl (80-100); Mean Platelet Volume 11.6 fl (7.4-10.4); Monocytes Absolute Auto 0.6 K/mm3 (0.1-0.6); Monocytes Percent Auto 5.7 % (2.6-8.5); Neutrophils Absolute Auto 7.5 K/mm3 (1.3-6.7); Neutrophils Percent Auto 67.3 % (45.5-73.1); Platelet Count Result 192 k/mm3 (150-375); Red Blood Count 4.48 M/mm3 (4.2-5.4); Red Cell Distribution Width 14.4 % (11.5-14.5); White Blood Count 11.1 K/mm3 (4.5-10.0)
[2022-07-11 03:47] LABS: Alanine Aminotransferase 18 U/L (6-35); Alkaline Phosphatase 82 U/L (38-126); Anion Gap 11 mmol/L (8-16); Aspartate Amino Transferase 24 U/L (14-36); Bilirubin,Total 0.5 mg/dL (0.2-1.3); Blood Urea Nitrogen 11 mg/dL (7-17); Calcium 8.4 mg/dL (8.4-10.2); Carbon Dioxide 21 mmol/L (22-30); Chloride 106 mmol/L (98-107); Estimated CRCL calculation 85 ml/min; Estimated Glomerular Filt Rate > 60; Glucose 221 mg/dL (65-110); Magnesium 1.7 mg/dL (1.6-2.3); Potassium 3.5 mmol/L (3.4-5.0); Sodium 138 mmol/L (137-145)
[2022-07-11] MEDS: ASPIRIN 81 MG ENTERIC TABLET PO (08:35)
[2022-07-11] MEDS: METOPROLOL TARTRATE 12.5 MG TABLET PO (08:35)
[2022-07-11 08:36] LABS: Glucose Point of Care 215 mg/dl (65-105)
[2022-07-11] MEDS: SERTRALINE HCL 25 MG TABLET PO (08:36)
[2022-07-11] MEDS: DULoxetine HCL 60 MG CAPSULE.DR PO ×2 (08:36→17:37)
[2022-07-11] MEDS: CLOPIDOGREL BISULFATE 75 MG TABLET PO (08:36)
[2022-07-11] MEDS: EMPAGLIFLOZIN 10 MG TABLET PO (08:36)
[2022-07-11] MEDS: INSULIN ASPART (*BKC) 100 UNITS/ML 10 UNITS SUB-Q ×2 (08:37→12:41)
[2022-07-11] MEDS: INSULIN GLARGINE (*BKC) 100 UNITS/ML 20 UNITS SUB-Q (08:37)
[2022-07-11] MEDS: INSULIN ASPART (*BKC) 100 UNITS/ML SUB-Q (08:37)
[2022-07-11] MEDS: FUROSEMIDE INJ 40 MG/4 ML VIAL IV PUSH ×2 (08:38→19:51)
[2022-07-11] MEDS: PREGABALIN (*CRX) 50 MG CAPSULE 100 MG PO ×2 (08:38→21:09)
[2022-07-11 12:53] LABS: Glucose Point of Care 167 mg/dl (65-105)
--- NOTE | 2022-07-11 14:42 | PM.IMPN ---
Progress Note: A&P Assessment and Plan (1) Acute on chronic heart failure with reduced ejection fraction and diastolic dysfunction: Code(s): I50.43 - Acute on chronic combined systolic (congestive) and diastolic (congestive) heart failure Status: Acute (2) Acute respiratory failure with hypoxia: Code(s): J96.01 - Acute respiratory failure with hypoxia Status: Acute (3) Hypokalemia: Code(s): E87.6 - Hypokalemia Status: Acute (4) Elevated troponin: Code(s): R77.8 - Other specified abnormalities of plasma proteins Status: Acute (5) Type 2 diabetes mellitus: Code(s): E11.9 - Type 2 diabetes mellitus without complications Status: Acute (6) Chronic obstructive pulmonary disease: Code(s): J44.9 - Chronic obstructive pulmonary disease, unspecified Status: Acute (7) Coronary artery disease: Qualifiers: Coronary Disease-Associated Artery/Lesion type: [place] artery [place] vs. transplanted heart: unspecified whether [place] or transplanted heart Code(s): I25.10 - Atherosclerotic heart disease of [place] coronary artery without angina pectoris Status: Chronic Plan The patient presented to the emergency department today for evaluation of sudden onset of shortness of breath at about 08:00 which woke her from sleep associated with mild chest heaviness. She was hypoxic on EMS arrival and placed on CPAP, transition to BiPAP in the ER where she refused ABG. VBG is not concerning and BiPAP has been removed, she is currently on 2 liters and doing well. Imaging exam findings are consistent with acute on chronic CHF exacerbation and she was given a dose of IV Lasix. Supplemental potassium was ordered as her potassium was 3.3 however she refused to take it orally. We will continue IV diuresis and supplement potassium per IV as needed. Precipitating etiology of her acute decompensation may very well be due to noncompliance; she has not yet picked up the medications which she was prescribed on discharge well over a week ago. Her troponins are a bit elevated from what they were during her last admission they will be trended to peak. She did have a cardiac catheterization last month as detailed in HPI and they thought perhaps she would best be served at a tertiary care facility for consideration of high risk PCI. She will once again be started on aspirin, clopidogrel, and metoprolol and she was encouraged to get her prescriptions TODD. No evidence to suggest acute COPD exacerbation. Blood pressures were reviewed and they are stable. Continue basal insulin. Initiate sliding scale insulin, Accu-Cheks, and hypoglycemic protocol. 07/11/2022 interval history: patient with severe cardiomyopathy with EF seen by non destructive testing specialist recommended continue to diurese patient IV lasix, will continue to monitor Is and Os, patient with elevated trope most likely demand ischemia patient is seen by Cardiology and further recommendation to follow, will Pt/OT evaluate the patient and further recommendation to follow. Subjective Date/time seen: 07/11/22 14:42 HPI-narrative: The patient presented to the emergency department today for evaluation of sudden onset of shortness of breath at about 08:00 which woke her from sleep associated with mild chest heaviness. She was hypoxic on EMS arrival and placed on CPAP, transition to BiPAP in the ER where she refused ABG. VBG is not concerning and BiPAP has been removed, she is currently on 2 liters and doing well. Imaging exam findings are consistent with acute on chronic CHF exacerbation and she was given a dose of IV Lasix. Supplemental potassium was ordered as her potassium was 3.3 however she refused to take it orally. We will continue IV diuresis and supplement potassium per IV as needed. Precipitating etiology of her acute decompensation may very well be due to noncompliance; she has not yet picked up the medications which she was prescribed on discharge well over a
[2022-07-11 17:42] LABS: Glucose Point of Care 73 mg/dl (65-105)
[2022-07-11 20:59] LABS: Glucose Point of Care 234 mg/dl (65-105)
--- NOTE | 2022-07-11 22:00 | PC.NURSE ---
This patient, Tiff Vaughn, was transferred to [[id number] ] on 07/11/22 at 2155 Personal belongings sent with patient. Report given to [ Meri NUNES]. Appropriate documentation sent with patient.
[2022-07-12] VITALS (10 sets, daily range): BP systolic 97–119; BP diastolic 51–69; PULSE 74–94; RESP 16–20; TEMP 36.4–37; O2SAT 95–99
[2022-07-12] MEDS: IBUPROFEN 400 MG TABLET 800 MG PO (00:04)
[2022-07-12] MEDS: ALPRAZolam (*CRX) 0.5 MG TABLET PO (05:40)
[2022-07-12] MEDS: HYDROcodone/acetaminophen (*CRX) 5-325 MG TABLET 1 TAB PO (06:03)
[2022-07-12 06:30] LABS: Hematocrit 41.4 % (37.0-47.0); Hemoglobin 13.3 g/dL (12.0-15.0); Mean Corpuscular HGB Conc 32.1 g/dl (32-36); Mean Corpuscular Hemoglobin 26.8 pg (26-34); Mean Corpuscular Volume 83.3 fl (80-100); Mean Platelet Volume 11.9 fl (7.4-10.4); Platelet Count Result 207 k/mm3 (150-375); Red Blood Count 4.97 M/mm3 (4.2-5.4); Red Cell Distribution Width 14.4 % (11.5-14.5); White Blood Count 7.9 K/mm3 (4.5-10.0)
[2022-07-12 07:01] LABS: Anion Gap 10 mmol/L (8-16); Blood Urea Nitrogen 14 mg/dL (7-17); Calcium 8.6 mg/dL (8.4-10.2); Carbon Dioxide 26 mmol/L (22-30); Chloride 102 mmol/L (98-107); Estimated CRCL calculation 60 ml/min; Estimated Glomerular Filt Rate > 60; Glucose 154 mg/dL (65-110); Magnesium 1.7 mg/dL (1.6-2.3); Potassium 2.8 mmol/L (3.4-5.0); Sodium 138 mmol/L (137-145)
[2022-07-12 08:09] LABS: Glucose Point of Care 155 mg/dl (65-105)
[2022-07-12] MEDS: INSULIN ASPART (*BKC) 100 UNITS/ML 10 UNITS SUB-Q ×2 (08:35→13:15)
[2022-07-12] MEDS: POTASSIUM CHLORIDE INJ 40 MEQ in SODIUM CHLORIDE 0.9% IV 500 ML 130 MEQ IVPB (08:35)
[2022-07-12] MEDS: INSULIN GLARGINE (*BKC) 100 UNITS/ML 20 UNITS SUB-Q ×3 (08:36→19:01)
[2022-07-12] MEDS: ASPIRIN 81 MG ENTERIC TABLET PO (08:41)
[2022-07-12] MEDS: CLOPIDOGREL BISULFATE 75 MG TABLET PO (08:41)
[2022-07-12] MEDS: FUROSEMIDE INJ 40 MG/4 ML VIAL IV PUSH ×2 (08:42→20:22)
[2022-07-12] MEDS: EMPAGLIFLOZIN 10 MG TABLET PO (08:42)
[2022-07-12] MEDS: DULoxetine HCL 60 MG CAPSULE.DR PO ×2 (08:42→17:21)
[2022-07-12] MEDS: PREGABALIN (*CRX) 50 MG CAPSULE 100 MG PO ×2 (08:42→20:22)
[2022-07-12] MEDS: SERTRALINE HCL 25 MG TABLET PO (08:43)
[2022-07-12] MEDS: METOPROLOL TARTRATE 12.5 MG TABLET PO (08:43)
--- NOTE | 2022-07-12 10:02 | PM.PNCARD ---
Progress Note: A&P Assessment and Plan (1) Acute on chronic heart failure with reduced ejection fraction and diastolic dysfunction: Code(s): I50.43 - Acute on chronic combined systolic (congestive) and diastolic (congestive) heart failure Status: Acute (2) Coronary artery disease: Code(s): I25.10 - Atherosclerotic heart disease of [place] coronary artery without angina pectoris Status: Acute Plan Recent TTE showing LVEF 25-30%, which was done on 06/18. No need to repeat echocardiogram this admission. Would transition IV Lasix to PO Lasix. Recommend to discharge patient on daily oral Lasix to maintain euvolemia. Continue ASA, Plavix for her CAD. On Repatha at home. For her heart failure, would continue with Jardiance. Since patient has not been taking her Metoprolol, would hold beta-blockers until patient is euvolemic and then restart beta-gisela therapy with Metoprolol succinate (patient had been discharged on Metoprolol tartrate, however tartrate is not indicated in patients with HFrEF). Did not tolerate Entresto last admission. Will not reattempt. Subjective Date/time seen: 07/12/22 10:02 Interval history: Reason for visit: Decompensated heart failure HPI: This is a 56-year-old female who was recently discharged from here for decompensated heart failure. She has a history of CAD, PAD who presented last admission with signs/symptoms of decompensated heart failure along with chest tightness. Found to have new diagnosis of heart failure with reduced ejection fraction with an LVEF 25-30%. Had undergone a Lexiscan which also showed LVEF 30% with a large infarct in the LCX territory with no reversible ischemia. Underwent cardiac cath which showed patent LAD stent, diffuse disease of LCX/OM which were small caliber vessels, a heavily diffusely calcified RCA with obstructive disease in the distal RCA; given the significant calcifications, we did not perform PCI as we do not have atherectomy tools at [place]. Since patient did not have further chest pain, medical management was pursued with ASA, Plavix with recommendations to follow-up with her outpatient Data Entry Email Processor. We had attempted Entresto, however, patient did not tolerate due to low blood pressure. Patient presents this time with shortness of breath. States she has not been able to get any of her prescriptions since discharge. Patient has had shortness of breath over past few days and felt like it progressively worsened. Per EMS reports, patient was hypoxic into the 80s. No chest pain. ED evaluation thus far shows mildly elevated troponin of 0.224 (lower than last admission), NT pro BNP of 1910, CXR showing pulmonary edema, EKG showing sinus tachycardia. DATE OF SERVICE 07/12/2022: Patient is feeling much better this AM. Denies shortness of breath. On room air. No chest pain. Exam Const: General: comfortable and no acute distress HENMT: Mouth: Yes moist mucous membranes Eyes: General: appearance normal, both eyes and all related structures Sclera: sclerae normal Neck: Neck: supple Resp: Effort & Inspection: normal respiratory effort Auscultation: clear to auscultation bilaterally Cardio: Rate: regular rate Rhythm: regular rhythm Heart sounds: no murmurs GI: GI Palp: Yes Soft to palpation and No Tenderness to palpation present (GI) Skin: General skin exam: normal color Neuro: Speech: normal speech Extrem: General: normal to inspection Psych: Mental Status: mental status grossly normal Affect: normal affect Objective Data Vital Signs Vital Signs: Vital Signs - 24 hr 07/11/22 12:00 07/11/22 16:00 07/11/22 12:00 Temperature 35.7 C L 36.3 C L Pulse Rate 93 79 82 Respiratory Rate 20 14 Blood Pressure 112/70 101/53 L Pulse Oximetry 95 97 Oxygen Delivery Fraction of Inspired Oxygen 07/11/22 14:00 07/11/22 16:00 07/11/22 16:00 Temperature Pulse Rate 86 83 83 Respiratory Rate 14 Blood Pressure Pulse Oximetry 9
[2022-07-12 12:22] LABS: Glucose Point of Care 348 mg/dl (65-105)
[2022-07-12 12:22] LABS: Glucose Point of Care > 500 mg/dl (65-105)
[2022-07-12] MEDS: INSULIN ASPART (*BKC) 100 UNITS/ML SUB-Q (13:15)
--- NOTE | 2022-07-12 13:45 | PM.IMPN ---
Progress Note: A&P Assessment and Plan (1) Acute on chronic heart failure with reduced ejection fraction and diastolic dysfunction: Code(s): I50.43 - Acute on chronic combined systolic (congestive) and diastolic (congestive) heart failure Status: Acute (2) Acute respiratory failure with hypoxia: Code(s): J96.01 - Acute respiratory failure with hypoxia Status: Acute (3) Hypokalemia: Code(s): E87.6 - Hypokalemia Status: Acute (4) Elevated troponin: Code(s): R77.8 - Other specified abnormalities of plasma proteins Status: Acute (5) Type 2 diabetes mellitus: Code(s): E11.9 - Type 2 diabetes mellitus without complications Status: Acute (6) Chronic obstructive pulmonary disease: Code(s): J44.9 - Chronic obstructive pulmonary disease, unspecified Status: Acute (7) Coronary artery disease: Qualifiers: Coronary Disease-Associated Artery/Lesion type: [place] artery [place] vs. transplanted heart: unspecified whether [place] or transplanted heart Code(s): I25.10 - Atherosclerotic heart disease of [place] coronary artery without angina pectoris Status: Chronic Plan The patient presented to the emergency department today for evaluation of sudden onset of shortness of breath at about 08:00 which woke her from sleep associated with mild chest heaviness. She was hypoxic on EMS arrival and placed on CPAP, transition to BiPAP in the ER where she refused ABG. VBG is not concerning and BiPAP has been removed, she is currently on 2 liters and doing well. Imaging exam findings are consistent with acute on chronic CHF exacerbation and she was given a dose of IV Lasix. Supplemental potassium was ordered as her potassium was 3.3 however she refused to take it orally. We will continue IV diuresis and supplement potassium per IV as needed. Precipitating etiology of her acute decompensation may very well be due to noncompliance; she has not yet picked up the medications which she was prescribed on discharge well over a week ago. Her troponins are a bit elevated from what they were during her last admission they will be trended to peak. She did have a cardiac catheterization last month as detailed in HPI and they thought perhaps she would best be served at a tertiary care facility for consideration of high risk PCI. She will once again be started on aspirin, clopidogrel, and metoprolol and she was encouraged to get her prescriptions TODD. No evidence to suggest acute COPD exacerbation. Blood pressures were reviewed and they are stable. Continue basal insulin. Initiate sliding scale insulin, Accu-Cheks, and hypoglycemic protocol. 07/12/2022 interval history: patient with severe cardiomyopathy with EF of 25-30% seen by stator winder recommended continue to diurese patient IV lasix, will continue to monitor Is and Os, patent urine output is not significant, will place patient on fluids restriction, 1600cc per day, patient with elevated trope most likely demand ischemia patient is seen by Cardiology and further recommendation to follow, will Pt/OT evaluate the patient and further recommendation to follow. Subjective Date/time seen: 07/12/22 13:45 The patient presented to the emergency department today for evaluation of sudden onset of shortness of breath at about 08:00 which woke her from sleep associated with mild chest heaviness. She was hypoxic on EMS arrival and placed on CPAP, transition to BiPAP in the ER where she refused ABG. VBG is not concerning and BiPAP has been removed, she is currently on 2 liters and doing well. Imaging exam findings are consistent with acute on chronic CHF exacerbation and she was given a dose of IV Lasix. Supplemental potassium was ordered as her potassium was 3.3 however she refused to take it orally. We will continue IV diuresis and supplement potassium per IV as needed. Precipitating etiology of her acute decompensation may very well be due to noncompliance
[2022-07-12] MEDS: MAGNESIUM SULF 1 GM/D5W 100 ML 1 GM/100 ML BAG IVPB (16:16)
[2022-07-12 17:17] LABS: Glucose Point of Care 89 mg/dl (65-105)
[2022-07-12 18:45] LABS: Anion Gap 12 mmol/L (8-16); Blood Urea Nitrogen 17 mg/dL (7-17); Calcium 8.4 mg/dL (8.4-10.2); Carbon Dioxide 26 mmol/L (22-30); Chloride 102 mmol/L (98-107); Estimated CRCL calculation 60 ml/min; Estimated Glomerular Filt Rate > 60; Glucose 108 mg/dL (65-110); Potassium 3.1 mmol/L (3.4-5.0); Sodium 140 mmol/L (137-145)
[2022-07-12 18:50] LABS: Magnesium 2.3 mg/dL (1.6-2.3)
[2022-07-12 21:02] LABS: Glucose Point of Care 164 mg/dl (65-105)
[2022-07-13] VITALS (8 sets, daily range): BP systolic 92–106; BP diastolic 52–68; PULSE 75–102; RESP 15–16; TEMP 36.3–36.4; O2SAT 95–96
[2022-07-13] MEDS: HYDROcodone/acetaminophen (*CRX) 5-325 MG TABLET 1 TAB PO ×3 (00:50→23:22)
[2022-07-13] MEDS: ALPRAZolam (*CRX) 0.5 MG TABLET PO ×2 (00:50→23:22)
[2022-07-13 06:14] LABS: Hematocrit 40.6 % (37.0-47.0); Hemoglobin 13.1 g/dL (12.0-15.0); Mean Corpuscular HGB Conc 32.3 g/dl (32-36); Mean Corpuscular Hemoglobin 25.9 pg (26-34); Mean Corpuscular Volume 80.4 fl (80-100); Mean Platelet Volume 11.5 fl (7.4-10.4); Platelet Count Result 218 k/mm3 (150-375); Red Blood Count 5.05 M/mm3 (4.2-5.4); Red Cell Distribution Width 14.2 % (11.5-14.5); White Blood Count 9.1 K/mm3 (4.5-10.0)
[2022-07-13 06:30] LABS: Anion Gap 11 mmol/L (8-16); Blood Urea Nitrogen 17 mg/dL (7-17); Calcium 8.3 mg/dL (8.4-10.2); Carbon Dioxide 28 mmol/L (22-30); Chloride 100 mmol/L (98-107); Estimated CRCL calculation 60 ml/min; Estimated Glomerular Filt Rate > 60; Glucose 113 mg/dL (65-110); Potassium 3.2 mmol/L (3.4-5.0); Sodium 139 mmol/L (137-145)
[2022-07-13 08:21] LABS: Glucose Point of Care 118 mg/dl (65-105)
--- NOTE | 2022-07-13 09:22 | PM.PNCARD ---
Progress Note: A&P Assessment and Plan (1) Acute on chronic heart failure with reduced ejection fraction and diastolic dysfunction: Code(s): I50.43 - Acute on chronic combined systolic (congestive) and diastolic (congestive) heart failure Status: Acute (2) Coronary artery disease: Code(s): I25.10 - Atherosclerotic heart disease of [place] coronary artery without angina pectoris Status: Acute Plan Recent TTE showing LVEF 25-30%, which was done on 06/18. No need to repeat echocardiogram this admission. Will transition IV Lasix to PO Lasix today. Recommend to discharge patient on daily oral Lasix to maintain euvolemia. Continue ASA, Plavix for her CAD. On Repatha at home. For her heart failure, would continue with Jardiance. Will add Toprol XL 25mg daily today Did not tolerate Entresto last admission. Will not reattempt. Can consider adding [place] as outpatient Disposition per primary service Subjective Date/time seen: 07/13/22 09:22 Cardiology follow up for CHF Complaining of pain all over this morning. States she has 23 broken bones and always hurts. Swelling is better. No shortness of breath. Denies any chest pain or palpitations. Exam Const: General: comfortable and no acute distress HENMT: Mouth: Yes moist mucous membranes Eyes: General: appearance normal, both eyes and all related structures Sclera: sclerae normal Neck: Neck: supple Resp: Effort & Inspection: normal respiratory effort Auscultation: clear to auscultation bilaterally, crackles and diminished lung sounds Cardio: Rate: regular rate and tachycardic Rhythm: regular rhythm Heart sounds: no murmurs Skin: General skin exam: normal color Neuro: Speech: normal speech Extrem: General: normal to inspection Other: Adequate perfusion, no swelling Psych: Mental Status: mental status grossly normal Affect: normal affect Objective Data Vital Signs Vital Signs: Vital Signs - 24 hr 07/12/22 09:55 07/12/22 12:00 07/12/22 14:00 Temperature 37.0 C Pulse Rate 90 91 Respiratory Rate 16 Blood Pressure 107/55 L Pulse Oximetry 99 Oxygen Delivery Room Air 07/12/22 16:00 07/12/22 20:20 07/12/22 20:00 Temperature 36.4 C L Pulse Rate 94 84 83 Respiratory Rate 16 Blood Pressure 97/51 L Pulse Oximetry 97 Oxygen Delivery 07/13/22 00:00 07/13/22 04:00 07/13/22 05:42 Temperature 36.4 C Pulse Rate 93 83 75 Respiratory Rate 15 Blood Pressure 106/68 Pulse Oximetry 95 Oxygen Delivery Intake/Output Intake/Output: Intake & Output 07/10/22 07/11/22 07/12/22 07/13/22 23:59 23:59 23:59 23:59 Intake Total 780 2540 1726 440 Output Total 550 2900 775 450 Balance 230 -360 951 -10 Meds/Results Medications: Active Medications Generic Name Dose Route Start Last Admin Trade Name Freq PRN Reason Stop Dose Admin Acetaminophen 650 mg 07/11/22 23:31 Acetaminophen 325 Mg Tablet PO Q4H PRN pain Hydrocodone Bitart/Acetaminophen 1 tab 07/12/22 05:51 07/13/22 08:05 Hydrocodone/Acetaminophen (*Crx) 5-325 Mg Tablet PO 1 tab Q6-8H PRN Administration Pain Rated 7-10 Alprazolam 0.5 mg 07/10/22 20:41 07/13/22 00:50 Alprazolam (*Crx) 0.5 Mg Tablet PO 0.5 mg BID PRN Administration Anxiety Aspirin 81 mg 07/11/22 09:00 07/12/22 08:41 Aspirin 81 Mg Enteric Tablet PO 81 mg QAM LIBBY Administration Clopidogrel Bisulfate 75 mg 07/11/22 09:00 07/12/22 08:41 Clopidogrel Bisulfate 75 Mg Tablet PO 75 mg QAM LIBBY Administration Dextrose 12.5 gm 07/10/22 20:35 Dextrose 50% 25 Gm/50 Ml Syringe IV PUSH PRN PRN Hypoglycemia Protocol Duloxetine HCl 60 mg 07/10/22 21:35 07/12/22 17:21 Duloxetine Hcl 60 Mg Capsule.Dr PO 60 mg BID LIBBY Administration Empagliflozin 10 mg 07/11/22 09:00 07/12/22 08:42 Empagliflozin 10 Mg Tablet PO 10 mg DAILY LIBBY Administration Furosemide 40 mg
[2022-07-13] MEDS: INSULIN GLARGINE (*BKC) 100 UNITS/ML 20 UNITS SUB-Q (09:32)
[2022-07-13] MEDS: INSULIN ASPART (*BKC) 100 UNITS/ML 10 UNITS SUB-Q (09:32)
[2022-07-13] MEDS: DULoxetine HCL 60 MG CAPSULE.DR PO ×2 (09:38→18:06)
[2022-07-13] MEDS: ASPIRIN 81 MG ENTERIC TABLET PO (09:38)
[2022-07-13] MEDS: CLOPIDOGREL BISULFATE 75 MG TABLET PO (09:38)
[2022-07-13] MEDS: EMPAGLIFLOZIN 10 MG TABLET PO (09:38)
[2022-07-13] MEDS: SERTRALINE HCL 25 MG TABLET PO (09:38)
[2022-07-13] MEDS: MAGNESIUM OXIDE 400 MG TABLET PO (09:38)
[2022-07-13] MEDS: PREGABALIN (*CRX) 50 MG CAPSULE 100 MG PO ×2 (09:40→21:08)
[2022-07-13] MEDS: POTASSIUM CHLORIDE INJ 40 MEQ in SODIUM CHLORIDE 0.9% IV 500 ML 130 MEQ IVPB (11:01)
--- NOTE | 2022-07-13 12:53 | PC.NURSE ---
low glucose episode, lunch tray has arrived, will monitor, glucose gel deferred
[2022-07-13 13:02] LABS: Glucose Point of Care 63 mg/dl (65-105)
[2022-07-13 13:34] LABS: Glucose Point of Care 116 mg/dl (65-105)
--- NOTE | 2022-07-13 17:43 | PM.IMPN ---
Progress Note: A&P Assessment and Plan (1) Acute on chronic heart failure with reduced ejection fraction and diastolic dysfunction: Code(s): I50.43 - Acute on chronic combined systolic (congestive) and diastolic (congestive) heart failure Status: Acute (2) Acute respiratory failure with hypoxia: Code(s): J96.01 - Acute respiratory failure with hypoxia Status: Acute (3) Hypokalemia: Code(s): E87.6 - Hypokalemia Status: Acute (4) Elevated troponin: Code(s): R77.8 - Other specified abnormalities of plasma proteins Status: Acute (5) Type 2 diabetes mellitus: Code(s): E11.9 - Type 2 diabetes mellitus without complications Status: Acute (6) Chronic obstructive pulmonary disease: Code(s): J44.9 - Chronic obstructive pulmonary disease, unspecified Status: Acute (7) Coronary artery disease: Qualifiers: Coronary Disease-Associated Artery/Lesion type: [place] artery [place] vs. transplanted heart: unspecified whether [place] or transplanted heart Code(s): I25.10 - Atherosclerotic heart disease of [place] coronary artery without angina pectoris Status: Chronic Plan The patient presented to the emergency department today for evaluation of sudden onset of shortness of breath at about 08:00 which woke her from sleep associated with mild chest heaviness. She was hypoxic on EMS arrival and placed on CPAP, transition to BiPAP in the ER where she refused ABG. VBG is not concerning and BiPAP has been removed, she is currently on 2 liters and doing well. Imaging exam findings are consistent with acute on chronic CHF exacerbation and she was given a dose of IV Lasix. Supplemental potassium was ordered as her potassium was 3.3 however she refused to take it orally. We will continue IV diuresis and supplement potassium per IV as needed. Precipitating etiology of her acute decompensation may very well be due to noncompliance; she has not yet picked up the medications which she was prescribed on discharge well over a week ago. Her troponins are a bit elevated from what they were during her last admission they will be trended to peak. She did have a cardiac catheterization last month as detailed in HPI and they thought perhaps she would best be served at a tertiary care facility for consideration of high risk PCI. She will once again be started on aspirin, clopidogrel, and metoprolol and she was encouraged to get her prescriptions TODD. No evidence to suggest acute COPD exacerbation. Blood pressures were reviewed and they are stable. Continue basal insulin. Initiate sliding scale insulin, Accu-Cheks, and hypoglycemic protocol. 07/13/2022 interval history: patient with severe cardiomyopathy with EF of 25-30% seen by life skills instructor recommended continue to diurese patient IV lasix, will continue to monitor Is and Os, patent urine output is not significant, will place patient on fluids restriction, 1600cc per day, patient seen by Cardiology recommended to stop the IV Lasix and switch over to p.o., continue Toprol, jardiance aspirin and Plavix will continue to monitor, patient with elevated trope most likely demand ischemia patient is seen by Cardiology and further recommendation to follow, will Pt/OT evaluate the patient and further recommendation to follow. Subjective Date/time seen: 07/13/22 17:43 The patient presented to the emergency department today for evaluation of sudden onset of shortness of breath at about 08:00 which woke her from sleep associated with mild chest heaviness. She was hypoxic on EMS arrival and placed on CPAP, transition to BiPAP in the ER where she refused ABG. VBG is not concerning and BiPAP has been removed, she is currently on 2 liters and doing well. Imaging exam findings are consistent with acute on chronic CHF exacerbation and she was given a dose of IV Lasix. Supplemental potassium was ordered as her potassium was 3.3 however she refused to take it orally. We
[2022-07-13 17:47] LABS: Glucose Point of Care 64 mg/dl (65-105)
[2022-07-13] MEDS: FUROSEMIDE 40 MG TABLET PO (18:06)
[2022-07-13 18:13] LABS: Glucose Point of Care 99 mg/dl (65-105)
[2022-07-13 21:07] LABS: Glucose Point of Care 221 mg/dl (65-105)
[2022-07-14] VITALS: BP 108/54; PULSE 95; PULSE 96; RESP 16; TEMP 36.6; O2SAT 97
[2022-07-14] MEDS: IBUPROFEN 400 MG TABLET 800 MG PO (01:27)
[2022-07-14 04:00] VITALS: PULSE 87
[2022-07-14 06:19] LABS: Glucose Point of Care 75 mg/dl (65-105)
[2022-07-14 06:54] LABS: Hematocrit 37.7 % (37.0-47.0); Mean Corpuscular HGB Conc 31.8 g/dl (32-36); Mean Corpuscular Volume 81.6 fl (80-100); Mean Platelet Volume 11.5 fl (7.4-10.4); Platelet Count Result 200 k/mm3 (150-375); Red Blood Count 4.62 M/mm3 (4.2-5.4); Red Cell Distribution Width 14.1 % (11.5-14.5); White Blood Count 6.7 K/mm3 (4.5-10.0)
[2022-07-14 07:01] LABS: Anion Gap 8 mmol/L (8-16); Blood Urea Nitrogen 15 mg/dL (7-17); Calcium 8.3 mg/dL (8.4-10.2); Carbon Dioxide 28 mmol/L (22-30); Chloride 102 mmol/L (98-107); Estimated CRCL calculation 67 ml/min; Estimated Glomerular Filt Rate > 60; Glucose 72 mg/dL (65-110); Magnesium 2.1 mg/dL (1.6-2.3); Potassium 3.2 mmol/L (3.4-5.0); Sodium 138 mmol/L (137-145)
[2022-07-14 08:00] VITALS: PULSE 85
[2022-07-14 08:28] LABS: Glucose Point of Care 109 mg/dl (65-105)
[2022-07-14] MEDS: SERTRALINE HCL 25 MG TABLET PO (09:42)
[2022-07-14] MEDS: EMPAGLIFLOZIN 10 MG TABLET PO (09:42)
[2022-07-14] MEDS: DULoxetine HCL 60 MG CAPSULE.DR PO ×2 (09:42→18:17)
[2022-07-14] MEDS: ASPIRIN 81 MG ENTERIC TABLET PO (09:42)
[2022-07-14] MEDS: CLOPIDOGREL BISULFATE 75 MG TABLET PO (09:42)
[2022-07-14] MEDS: MAGNESIUM OXIDE 400 MG TABLET PO (09:42)
[2022-07-14] MEDS: FUROSEMIDE 40 MG TABLET PO (09:42)
[2022-07-14 09:44] VITALS: PULSE 94
[2022-07-14] MEDS: PREGABALIN (*CRX) 50 MG CAPSULE 100 MG PO (09:44)
[2022-07-14] MEDS: METOPROLOL SUCCINATE EXT REL 25 MG TABCR PO (09:44)
[2022-07-14] MEDS: POTASSIUM CHLORIDE INJ 40 MEQ in SODIUM CHLORIDE 0.9% IV 500 ML 130 MEQ IVPB (09:48)
[2022-07-14] MEDS: INSULIN ASPART (*BKC) 100 UNITS/ML 10 UNITS SUB-Q ×2 (09:51→13:22)
[2022-07-14] MEDS: INSULIN GLARGINE (*BKC) 100 UNITS/ML 20 UNITS SUB-Q ×2 (09:52→18:18)
--- NOTE | 2022-07-14 11:16 | PM.DS ---
DS: Admitting Diagnosis Discharge Date 07/13/2022 Admitting Diagnosis shortness of breath DS: Discharge Diagnosis Discharge Diagnosis (1) Acute on chronic heart failure with reduced ejection fraction and diastolic dysfunction: Code(s): I50.43 - Acute on chronic combined systolic (congestive) and diastolic (congestive) heart failure Status: Acute (2) Acute respiratory failure with hypoxia: Code(s): J96.01 - Acute respiratory failure with hypoxia Status: Acute (3) Hypokalemia: Code(s): E87.6 - Hypokalemia Status: Acute (4) Elevated troponin: Code(s): R77.8 - Other specified abnormalities of plasma proteins Status: Acute (5) Type 2 diabetes mellitus: Code(s): E11.9 - Type 2 diabetes mellitus without complications Status: Acute (6) Chronic obstructive pulmonary disease: Code(s): J44.9 - Chronic obstructive pulmonary disease, unspecified Status: Acute (7) Coronary artery disease: Qualifiers: Coronary Disease-Associated Artery/Lesion type: [place] artery [place] vs. transplanted heart: unspecified whether [place] or transplanted heart Code(s): I25.10 - Atherosclerotic heart disease of [place] coronary artery without angina pectoris Status: Chronic Plan The patient presented to the emergency department today for evaluation of sudden onset of shortness of breath at about 08:00 which woke her from sleep associated with mild chest heaviness. She was hypoxic on EMS arrival and placed on CPAP, transition to BiPAP in the ER where she refused ABG. VBG is not concerning and BiPAP has been removed, she is currently on 2 liters and doing well. Imaging exam findings are consistent with acute on chronic CHF exacerbation and she was given a dose of IV Lasix. Supplemental potassium was ordered as her potassium was 3.3 however she refused to take it orally. We will continue IV diuresis and supplement potassium per IV as needed. Precipitating etiology of her acute decompensation may very well be due to noncompliance; she has not yet picked up the medications which she was prescribed on discharge well over a week ago. Her troponins are a bit elevated from what they were during her last admission they will be trended to peak. She did have a cardiac catheterization last month as detailed in HPI and they thought perhaps she would best be served at a tertiary care facility for consideration of high risk PCI. She will once again be started on aspirin, clopidogrel, and metoprolol and she was encouraged to get her prescriptions TODD. No evidence to suggest acute COPD exacerbation. Blood pressures were reviewed and they are stable. Continue basal insulin. Initiate sliding scale insulin, Accu-Cheks, and hypoglycemic protocol. 07/13/2022 interval history: patient with severe cardiomyopathy with EF of 25-30% seen by diversified crops farmer recommended continue to diurese patient IV lasix, will continue to monitor Is and Os, patent urine output is not significant, will place patient on fluids restriction, 1600cc per day, patient seen by Cardiology recommended to stop the IV Lasix and switch over to p.o., continue Toprol, jardiance aspirin and Plavix will continue to monitor, patient with elevated trope most likely demand ischemia patient is seen by Cardiology and further recommendation to follow, will Pt/OT evaluate the patient and further recommendation to follow. DS: Summary Hospital Course Reason for hospitalization: Shortness of breath. Narrative: This is a 56-year-old female with heart failure with reduced ejection fraction most recent EF of 25 to 30%, COPD, coronary artery disease, insulin dependent diabetes, hyperlipidemia, and peripheral vascular disease who presented to the ED via EMS from home for evaluation of shortness of breath. She was recently hospitalized with elevated troponins after presenting with shortness of breath. Stress test showed a large, severe non reversible perfusion d
[2022-07-14 12:00] VITALS: PULSE 92
[2022-07-14 12:35] LABS: Glucose Point of Care 211 mg/dl (65-105)
[2022-07-14] MEDS: INSULIN ASPART (*BKC) 100 UNITS/ML SUB-Q (13:22)
[2022-07-14 16:00] VITALS: PULSE 79
[2022-07-14 16:02] LABS: Potassium 3.8 mmol/L (3.4-5.0)
[2022-07-14 17:45] LABS: Glucose Point of Care 106 mg/dl (65-105)
== END 2022-07-14 18:51 | disposition home or self-care (01) | DRG 291 ==
LOC: ANHED 13:21 → ANHIMU 14:13 → ANH3MED 07-11 22:24
PROVIDERS: Internal Medicine; Physician Assistant; Admitting Provider Hospitalist; Emergency Provider General Practice; PCP Emergency Medicine; Visit Provider Family Medicine
DX: I50.43 Acute on chronic combined systolic (congestive) and diastolic (congestive) heart failure (principal); J96.01 Acute respiratory failure with hypoxia; I42.9 Cardiomyopathy, unspecified; Z20.822 Contact with and (suspected) exposure to COVID-19; E87.6 Hypokalemia; R77.8 Other specified abnormalities of plasma proteins; J44.9 Chronic obstructive pulmonary disease, unspecified; I25.10 Atherosclerotic heart disease of native coronary artery without angina pectoris; F41.9 Anxiety disorder, unspecified; E78.00 Pure hypercholesterolemia, unspecified; E11.42 Type 2 diabetes mellitus with diabetic polyneuropathy; E11.51 Type 2 diabetes mellitus with diabetic peripheral angiopathy without gangrene; I73.9 Peripheral vascular disease, unspecified; Z91.199 Patient's noncompliance with other medical treatment and regimen due to unspecified reason; Z79.4 Long term (current) use of insulin; Z90.49 Acquired absence of other specified parts of digestive tract; Z90.710 Acquired absence of both cervix and uterus; Z95.5 Presence of coronary angioplasty implant and graft; Z87.891 Personal history of nicotine dependence
CPT/HCPCS: 36415; 71045; 80048; 80053; 82803; 82948; 83605; 83735; 83880; 84132; 84484; 85025; 85027; 85610; 85730; 87040; 87070; 87205; 87636; 93005; 94002; 94660; 96374; 97110; 97161; 97165; 97530; 99285; A9270; G0378; J0456; J0696; J1815; J1940; J3475; J3480; J7040

== ENCOUNTER 2022-07-31 14:49 | Observation (INO) | payer MEDICARE, MEDICAID, SELFPAY ==
[2022-07-31] VITALS (43 sets, daily range): BP systolic 71–133; BP diastolic 35–68; PULSE 92–116; RESP 8–20; TEMP 36.8; O2SAT 10–100; BMI 28.3
--- NOTE | ~2022-07-31 | XR_ITS ---
EXAMINATION: XR chest 1V portable INDICATION: Shortness of breath TECHNIQUE: Portable AP chest at 1531 hours COMPARISON: 07/10/2022 There are minimal left basilar airspace opacities The lungs are free of acute opacities. No pleural e ffusion or pneumothorax. An electronic implant is noted in the left chest wall. There is a chronic he aled fracture of the left humeral head. IMPRESSION: 1. Left basilar airspace opacities, likely atelectasis. Reviewed, dictated and finalized at location A. GIOUS EDUCATION TEACHER
--- NOTE | ~2022-07-31 | US_ITS ---
EXAMINATION: US venous doppler [facility] DATE: 08/01/2022 14:55 INDICATION: Lower limb erythema and swelling TECHNIQUE: Grayscale ultrasound images without and with compression and Doppler ultrasound images of the bilateral lower extremity veins were obtained. COMPARISON: 05/02/2022 FINDINGS: The visualized portions of right common femoral vein, profunda (deep) femoral vein, femoral vein, pop liteal vein and greater saphenous vein outflow are patent. The visualized portions of left common femoral vein, profunda femoral vein, femoral vein, popliteal v ein, posterior tibial veins, gastrocnemius vein and greater saphenous vein outflow are patent. IMPRESSION: 1. No deep venous thrombosis in either lower limb. Reviewed, dictated and finalized at location A. UM BLOCK SETTER
--- NOTE | ~2022-07-31 | CT_ITS ---
EXAMINATION: CTA chest PE protocol DATE: 07/31/2022 17:34 INDICATION: Shortness of breath and hypoxia TECHNIQUE: Computed tomography (CT) pulmonary angiogram of the chest was performed with 100 mL Omnipa que-350 intravenous contrast. Additional 3D reconstructions utilizing coronal maximum intensity proje ction (MIP) were performed. Automated exposure control and iterative reconstruction technique were em ployed. The dose-length product was 746.06 mGy-cm. COMPARISON: None FINDINGS: Good contrast opacification of the pulmonary arteries. There is mild streak artifact from dense contr ast in the superior vena cava and right atrium. Mild to moderate scattered respiratory motion artifac t most prominent at the bilateral lower lung zones which significantly decreases sensitivity in asses sment of the smaller basilar subsegmental pulmonary arteries . And No evident pulmonary embolism. Mil d emphysema. Scattered bilateral groundglass opacities and smooth septal line thickening consistent w ith mild pulmonary edema. Very small bilateral posterior layering pleural effusions with additional m ild dependent atelectasis in both lower lobes. Cardiomegaly. Atherosclerotic coronary artery calcific location. Aortic valve calcification. No pericardial effusion. Thoracic aorta is normal in caliber w ith no dissection. Calcified mediastinal lymph nodes along with a few tiny hepatic and splenic calcif ications consistent with old granulomatous disease. A few mildly prominent bilateral hilar and medias tinal lymph nodes which are likely reactive. Cholecystectomy clips in the gallbladder fossa. Moderate thoracic spondylosis. IMPRESSION: 1. No pulmonary embolism with significantly decreases sensitivity in the basilar subsegmental pulmona ry arteries due to moderate Basilar predominant motion artifact. 2. Likely congestive heart failure with mild pulmonary edema superimposed over mild emphysema. 3. Very small bilateral pleural effusions with mild dependent atelectasis in the lower lobes.. 4. Cardiomegaly. Reviewed, dictated and finalized at location A. TE CLERK FOR BASIC TRAFFIC IMPRESSION: 1. No pulmonary embolism with significantly decreases sensitivity in the basila r subsegmental pulmonary arteries due to moderate Basilar predominant motion ar tifact. 2. Likely congestive heart failure with mild pulmonary edema superimposed over mild emphysema. 3. Very small bilateral pleural effusions with mild dependent atelectasis in th e lower lobes.. 4. Cardiomegaly.
--- NOTE | 2022-07-31 15:04 | ECG_ITS ---
Measurements Intervals [place]ettie Rate: 96 P: -13 NC: 182 QRS: 90 QRSD: 105 T: -8 QT: 394 QTc: 499 Interpretive Statements SINUS RHYTHM POSSIBLE LEFT ATRIAL ENLARGEMENT [-0.1mV P-WAVE IN V1/V2] CONSIDER INFERIOR MYOCARDIAL INFARCTION , PROBABLY OLD [40+ ms Q WAVE AND/OR ST/T ABNORMALITY IN II/aVF] COMPARED TO ECG 07/10/2022 09:58:33 LEFTWARD AXIS HAS RESOLVED Electronically Signed On 07-31-2022 16:48:19 [facility]ATHOLIC PRIEST by Zay Garcia M.D.
--- NOTE | 2022-07-31 15:10 | ED.SOB ---
HPI - SOB/Dyspnea General Chief Complaint: Shortness of Breath/Dyspnea Stated Complaint: sob Time Seen by Provider: 07/31/22 14:57 History of Present Illness HPI Narrative: 57-year-old female with a history of CHF and COPD here for evaluation of shortness of breath. Patient states that she was in her usual state of health yesterday but today she woke up feeling short of breath. Also notes a cough. She called EMS and was noted to be in the low 90s on room air, no home O2 requirement. She was placed on 4 L nasal cannula and received a nebulizer treatment, which did improve her shortness of breath. She was recently hospitalized for CHF exacerbation. She does not smoke currently and quit 4 years ago. No leg swelling, weight gain, fevers, congestion, abdominal pain or other symptoms. Related Data Home Medications Medication Instructions Recorded Confirmed insulin glargine 100 unit/mL (3 20 unit subcut BIDWM 03/30/22 07/10/22 mL) subcutaneous pen (Basaglar KwikPen U-100 Insulin) insulin lispro 100 unit/mL 10 unit subcut TIDWM 03/30/22 07/10/22 subcutaneous solution (Admelog U-100 Insulin lispro) semaglutide 0.25 mg or 0.5 mg (2 1 mg subcut WEEKLY 03/30/22 07/10/22 mg/1.5 mL) subcutaneous pen injector (Ozempic) duloxetine 30 mg capsule,delayed 60 mg PO BID 06/15/22 07/10/22 release (Cymbalta) evolocumab 140 mg/mL subcutaneous 140 mg subcut [id number] 06/15/22 07/10/22 pen injector (Repatha SureClick) pregabalin 50 mg capsule (Lyrica) 100 mg PO Q12H 06/15/22 07/10/22 Allergies Allergy/AdvReac Type Severity Reaction Status Date / Time propofol Allergy Agitated Verified 05/02/22 01:11 [id number]-YEX-[id number] Reductase AdvReac Intermediate MYALGIAS Verified 06/24/22 16:19 Inhibitor Review of Systems Review of Systems: Gen.: Denies fevers or chills Eyes: Denies eye pain or visual change ENT: Denies congestion Respiratory: Reports shortness of breath and cough CV: Denies chest pain or palpitations GI: Denies abdominal pain nausea, emesis or diarrhea denies burning, urgency, frequency or hematuria Musculoskeletal: Denies back pain or muscle pain Neuro: Denies numbness, tingling, weakness or focal weakness Skin: Denies rash Except as documented, all other systems reviewed and negative [facility] Past Medical History Medical History Anxiety Charcot's joint of foot in type 2 diabetes mellitus Of the right foot Chickenpox Chronic obstructive pulmonary disease Coronary artery disease Left anterior descending stent 01/2019. 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 Peripheral vascular disease due to secondary diabetes Surgical History Surgical History History of appendectomy History of section History of hysterectomy Due to cervical changes. History of tonsillectomy and adenoidectomy Hx of BKA Right 11/19/20 at [facility] Status post cholecystectomy Stented coronary artery X1 Family History Family History Sibling Diabetes mellitus Mother Heart failure Cardiomegaly Arthritis Atrial fibrillation Family history of osteoporosis Family history of Alzheimer's disease Hypertension Cardiomyopathy Acute myocardial infarction History of heart artery stent Congestive heart failure Daughter Anxiety Father Esophagus cancer Cancer of spinal column S
[2022-07-31 16:01] LABS: Basophils Percent Auto 0.6 % (0.2-1.2); Eosinophils Absolute Auto 0.1 K/mm3 (0-0.3); Eosinophils Percent Auto 1.9 % (0-4.4); Hematocrit 38.4 % (37.0-47.0); Hemoglobin 11.9 g/dL (12.0-15.0); Immature Granulocyte Absolute 0.02 K/mm3 (0.00-0.031); Immature Granulocyte Percent A 0.3 % (0-0.5); Lymphocytes Absolute Auto 2.12 K/mm3 (0.9-3.2); Lymphocytes Percent Auto 30.9 % (18.3-44.2); Mean Corpuscular Hemoglobin 26.1 pg (26-34); Mean Corpuscular Volume 84.2 fl (80-100); Mean Platelet Volume 11.6 fl (7.4-10.4); Monocytes Absolute Auto 0.4 K/mm3 (0.1-0.6); Monocytes Percent Auto 5.5 % (2.6-8.5); Neutrophils Absolute Auto 4.2 K/mm3 (1.3-6.7); Neutrophils Percent Auto 60.8 % (45.5-73.1); Platelet Count Result 152 k/mm3 (150-375); Red Blood Count 4.56 M/mm3 (4.2-5.4); Red Cell Distribution Width 14.2 % (11.5-14.5); White Blood Count 6.9 K/mm3 (4.5-10.0)
[2022-07-31] MEDS: SODIUM CHLORIDE 0.9% IV 1,000 ML 999 ML IV CONT (16:01)
[2022-07-31 16:14] LABS: Alanine Aminotransferase 14 U/L (6-35); Alkaline Phosphatase 91 U/L (38-126); Anion Gap 10 mmol/L (8-16); Aspartate Amino Transferase 18 U/L (14-36); Bilirubin,Total 0.4 mg/dL (0.2-1.3); Blood Urea Nitrogen 17 mg/dL (7-17); Calcium 8.3 mg/dL (8.4-10.2); Carbon Dioxide 21 mmol/L (22-30); Chloride 107 mmol/L (98-107); Estimated CRCL calculation 75 ml/min; Estimated Glomerular Filt Rate > 60; Glucose 273 mg/dL (65-110); Magnesium 1.7 mg/dL (1.6-2.3); Potassium 2.6 mmol/L (3.4-5.0); Sodium 138 mmol/L (137-145)
[2022-07-31 16:21] LABS: NT Pro B Type Natriuretic Pept 2430 pg/mL (5-100); Troponin I 0.022 ng/mL (0.000-0.034)
[2022-07-31 16:23] LABS: Influenza A QL RT-PCR Negative (Negative); Influenza B QL RT-PCR Negative (Negative); RSV RNA, RT-PCR Negative (Negative); SARS-CoV-2 RNA PCR Negative
[2022-07-31] MEDS: POTASSIUM CHLORIDE INJ 40 MEQ in SODIUM CHLORIDE 0.9% IV 500 ML 130 MEQ IVPB (16:36)
--- NOTE | 2022-07-31 16:49 | PC.NURSE ---
patient refused PO K+. offered to crush meds, place in applesauce/pudding and offered liquid K+, patient also refused that. provider aware. IV K+ infusing at this time at a slower rate per patient request
[2022-07-31 17:00] LABS: INR 1.1; Prothrombin Time 13.3 Seconds (11.1-14.7)
[2022-07-31 17:04] LABS: D Dimer 1.39 ug/mL (<0.48)
--- NOTE | 2022-07-31 20:55 | PM.IMHP ---
H&P: HPI History of Present Illness Date/Time: 07/31/22 20:55 Chief Complaint: Shortness of breath Narrative: This is a 57-year-old female patient lives home alone. She has a history of CHF and COPD. The patient stated that she developed shortness of breath today. Yesterday she felt like her normal self. The patient was found to be saturating 90% on room air and has no home O2 requirements. She was placed on oxygen at 4 L per nasal cannula and received a nebulizer treatment which did improve her shortness of breath. The patient quit smoking 4 years ago. She denied any leg swelling weight gain or fevers or congestion. Her D-dimer was noted to be 1.39. Potassium was found to be 2.6. And the patient stated that she has been taking her potassium at home. Her blood sugar was found to be 273. BNP 2430. The patient was negative for influenza a B COVID and RSV. The patient was given IV fluids p.o. potassium and IV potassium. Magnesium was borderline at 1.7. Chest CTA was read as the following 1. No pulmonary embolism with significantly decreases sensitivity in the basilar subsegmental pulmonary arteries due to moderate Basilar predominant motion artifact. 2. Likely congestive heart failure with mild pulmonary edema superimposed over mild emphysema. 3. Very small bilateral pleural effusions with mild dependent atelectasis in the lower lobes.. 4. Cardiomegaly. The patient is being admitted to observation status on the date of service of 07/31/2022 Review of Systems Review of Systems: See HPI All systems reviewed & are unremarkable except as noted in HPI and below Constitutional: Constitutional: Reports as per HPI and Reports no additional constitutional complaints Eyes: Eyes: Reports as per HPI and Reports no additional eye complaints ENT: Reports system reviewed and no additional complaints, except as documented and Reports Normal hearing present Cardiovascular: Cardiovascular: Reports no additional cardiovascular complaints Respiratory: Respiratory: Reports no additional respiratory complaints and Reports no additional respiratory complaints Gastrointestinal: Gastrointestinal: Reports as per HPI and Reports no additional gastrointestinal complaints Musculoskeletal: Musculoskeletal: Reports no additional musculoskeletal complaints Integumentary/Breasts: Skin/Breast: Reports system reviewed and no additional complaints, except as docu and Reports as per HPI Neurologic: Reports system reviewed and no additional complaints, except as documented, Reports as per HPI and Reports Normal hearing present Psychiatric: Psychiatric: Reports no additional psychiatric complaints and Reports as per HPI Endocrine: Endocrine: Reports no additional endocrine complaints Hematologic/Lymphatic: Hematologic/Lymphatic: Reports no additional hematologic/lymphatic complaints Allergic/Immunologic: Allergic/Immunologic: Reports no additional allergic/immunologic complaints [facility] Past Medical History Medical History (Updated 07/31/22 @ 23:44 by Tiff Cloud NP) Acute pyelonephritis Anxiety Barrier to discharge Charcot's joint of foot in type 2 diabetes mellitus Of the right foot Chickenpox Chronic obstructive pulmonary disease Coronary artery disease Left anterior descending stent 01/2019. Usual cmm technician is Dr. 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 Peripheral vascular disease due to secondary diabetes Sepsis UTI (urinary tract infection) Surgical History Surgi
--- NOTE | 2022-07-31 21:27 | ADMGEN ---
This patient, Tiff Vaughn, was admitted to [facility] Surg Room 317-01. Patient/family oriented to hospital policies and general routines including ID bracelet, bed and alarms, visiting hours, pain management, procedures, bathroom and other care routines, personal items, smoking policy, room service/diet, and visiting hours. Information on how to activate the Rapid Response Team has been discussed. Patient/Family are encouraged to report perceived risks to care and to ask questions if they do not understand what they are told or what they should do.
[2022-08-01] VITALS (12 sets, daily range): BP systolic 99–119; BP diastolic 55–70; PULSE 70–109; RESP 16–22; TEMP 36.1–36.7; O2SAT 90–94
[2022-08-01 00:18] LABS: Anion Gap 7 mmol/L (8-16); Blood Urea Nitrogen 14 mg/dL (7-17); Calcium 7.9 mg/dL (8.4-10.2); Carbon Dioxide 20 mmol/L (22-30); Chloride 110 mmol/L (98-107); Estimated CRCL calculation 85 ml/min; Estimated Glomerular Filt Rate > 60; Glucose 243 mg/dL (65-110); Potassium 3.4 mmol/L (3.4-5.0); Sodium 137 mmol/L (137-145)
[2022-08-01 00:24] LABS: Hemoglobin A1C 8.8 % (<5.7)
[2022-08-01] MEDS: DULoxetine HCL 30 MG CAPSULE.DR 60 MG PO ×2 (00:37→11:04)
[2022-08-01] MEDS: PREGABALIN (*CRX) 50 MG CAPSULE 100 MG PO ×2 (00:37→11:05)
[2022-08-01] MEDS: HYDROcodone/acetaminophen (*CRX) 5-325 MG TABLET 1 TAB PO ×2 (00:37→11:03)
[2022-08-01] MEDS: MAGNESIUM SULF 2 GM/WATER 50ML 2 GM/50 ML BAG IVPB (00:37)
[2022-08-01] MEDS: ALBUTEROL SULFATE NEB 2.5 MG/3 ML INH INHALATION (02:33)
[2022-08-01] MEDS: IPRATROPIUM BR 0.02% INH SOLN 0.5 MG/2.5 ML VIAL INHALATION (02:33)
[2022-08-01] MEDS: ALPRAZolam (*CRX) 0.5 MG TABLET PO (04:36)
--- NOTE | 2022-08-01 06:07 | PC.NURSE ---
Pt to floor from IMU. Belongings with Pt.
[2022-08-01 07:58] LABS: Basophils Absolute Auto 0.1 K/mm3 (0.0-0.1); Basophils Percent Auto 0.8 % (0.2-1.2); Eosinophils Absolute Auto 0.2 K/mm3 (0-0.3); Eosinophils Percent Auto 2.3 % (0-4.4); Hematocrit 34.7 % (37.0-47.0); Hemoglobin 10.8 g/dL (12.0-15.0); Immature Granulocyte Absolute 0.02 K/mm3 (0.00-0.031); Immature Granulocyte Percent A 0.2 % (0-0.5); Lymphocytes Absolute Auto 2.76 K/mm3 (0.9-3.2); Mean Corpuscular HGB Conc 31.1 g/dl (32-36); Mean Corpuscular Volume 83.6 fl (80-100); Mean Platelet Volume 11.4 fl (7.4-10.4); Monocytes Absolute Auto 0.5 K/mm3 (0.1-0.6); Monocytes Percent Auto 5.7 % (2.6-8.5); Neutrophils Absolute Auto 4.9 K/mm3 (1.3-6.7); Platelet Count Result 164 k/mm3 (150-375); Red Blood Count 4.15 M/mm3 (4.2-5.4); Red Cell Distribution Width 14.4 % (11.5-14.5); White Blood Count 8.4 K/mm3 (4.5-10.0)
[2022-08-01 08:03] LABS: Glucose Point of Care 198 mg/dl (65-105)
[2022-08-01 08:10] LABS: Alanine Aminotransferase 14 U/L (6-35); Albumin Level 3.6 g/dL (3.5-5.1); Alkaline Phosphatase 81 U/L (38-126); Anion Gap 5 mmol/L (8-16); Aspartate Amino Transferase 16 U/L (14-36); Bilirubin,Total 0.4 mg/dL (0.2-1.3); Blood Urea Nitrogen 11 mg/dL (7-17); Calcium 8.1 mg/dL (8.4-10.2); Carbon Dioxide 21 mmol/L (22-30); Chloride 111 mmol/L (98-107); Estimated CRCL calculation 98 ml/min; Estimated Glomerular Filt Rate > 60; Glucose 203 mg/dL (65-110); Lactic Acid Reflex 1.1 mmol/L (0.7-2.0); Phosphorus 3.3 mg/dL (2.5-4.5); Potassium 3.1 mmol/L (3.4-5.0); Sodium 137 mmol/L (137-145)
[2022-08-01] MEDS: INSULIN GLARGINE (*BKC) 100 UNITS/ML 20 UNITS SUB-Q (09:08)
[2022-08-01] MEDS: ENOXAPARIN 40 MG/0.4 ML SYRINGE SUB-Q (09:09)
[2022-08-01] MEDS: CLOPIDOGREL BISULFATE 75 MG TABLET PO (11:04)
[2022-08-01] MEDS: METOPROLOL SUCCINATE EXT REL 25 MG TABCR PO (11:04)
[2022-08-01] MEDS: ASPIRIN 81 MG ENTERIC TABLET PO (11:04)
[2022-08-01] MEDS: EMPAGLIFLOZIN 10 MG TABLET PO (11:05)
[2022-08-01 12:11] LABS: Glucose Point of Care 195 mg/dl (65-105)
--- NOTE | 2022-08-01 12:26 | PM.IMPN ---
Progress Note: A&P Assessment and Plan (1) Acute on chronic systolic heart failure: Code(s): I50.23 - Acute on chronic systolic (congestive) heart failure Status: Acute Assessment and Plan: Patient shortness of breath has improved and she is off oxygen but patient states that she thought she was going to overnight because of her shortness of breath - CTA shows no PE but does show mild pulmonary edema - patient has history of heart failure with reduced EF with a EF of 25-30%. -Not on Entresto. Sees Dr. Durant. would recommend f/u with their office to discuss this addtional treatment - patient was not given diuretics yesterday due to her potassium. will give a gentle one time dose later today after her potassium is complete. This will need to be re-evaluated tomorrow to see if she handled it well we can schedule it. -monitor C02 (2) Hypokalemia: Code(s): E87.6 - Hypokalemia Status: Acute Assessment and Plan: improved from 2.6-3.1 - patient refused oral potassium ( liquid and pill) this morning so we will try to do IV - Patient takes potassium at home and has certain pills that she likes. She does not like or pills so if we need to replace her potassium during her hospital stay we will need to utilize IV - magnesium 2.0 (3) Chronic obstructive pulmonary disease: Code(s): J44.9 - Chronic obstructive pulmonary disease, unspecified Status: Acute Assessment and Plan: no wheezing on exam, no evidence of COPD exacerbation (4) Anxiety and depression: Code(s): F41.9 - Anxiety disorder, unspecified; F32.A - Depression, unspecified Status: Acute Assessment and Plan: chronic and stable - continue Cymbalta (5) Anxiety: Code(s): F41.9 - Anxiety disorder, unspecified Status: Acute Assessment and Plan: chronic and stable (6) Type 2 diabetes mellitus with hyperglycemia, with long-term current use of insulin: Code(s): E11.65 - Type 2 diabetes mellitus with hyperglycemia; Z79.4 - intermediate (current) use of insulin Status: Acute Assessment and Plan: last glucose 195 - A1c 8.8 - patient is currently on Lantus 20 units b.i.d., sliding scale insulin, and Jardiance -I'm going to verify her home regimen. She may need more meal time insulin since she is usually on 10u at home (7) Coronary artery disease: Qualifiers: Coronary Disease-Associated Artery/Lesion type: [place] artery [place] vs. transplanted heart: unspecified whether [place] or transplanted heart Code(s): I25.10 - Atherosclerotic heart disease of [place] coronary artery without angina pectoris Status: Chronic Assessment and Plan: With a history of coronary stenting. -continue with aspirin, Plavix, metoprolol, and jardiance -f/u with cardiology Plan Plan to discharge in 1-2 days once CHF improves. Time Spent With Patient Time with patient: 25 - 35 minutes Subjective Date/time seen: 08/01/22 12:26 Interval history: Pt is a 57-year-old female here for shortness of breath and CHF exacerbation. Patient states that she is doing better than yesterday but still felt very scared overnight. She said her breathing is off and she thought she was going to overnight due to the shortness of breath. She is not on oxygen at home. She has a history of CHF that was kind of recent and she is working with Dr. Durant and has not tried Entresto yet. she has no chest pain whatsoever. She is mostly bed-bound because she has a below-knee amputation of the right leg and does not have an orthotic. she denies fevers, chills, diarrhea or constipation. She does have some chronic back pain has been going on since 1986 that is unchanged. She does not want to take her oral potassium or liquid and requested being IV Review of Systems Review of Systems: All systems reviewed & are unremarkable except as not
--- NOTE | 2022-08-01 14:12 | PC.NURSE ---
to ultrasound per stretcher
[2022-08-01] MEDS: POTASSIUM CHLORIDE INJ 40 MEQ in SODIUM CHLORIDE 0.9% IV 500 ML 50 MEQ IVPB (15:03)
[2022-08-01 17:35] LABS: Glucose Point of Care 183 mg/dl (65-105)
[2022-08-01] MEDS: INSULIN GLARGINE (*BKC) 100 UNITS/ML 10 UNITS SUB-Q (18:45)
[2022-08-01 22:38] LABS: Glucose Point of Care 136 mg/dl (65-105)
[2022-08-01] MEDS: ALBUTEROL SULFATE (*SP) AEROSOL 1 PUFF 2 PUFF INHALATION (23:49)
[2022-08-02] VITALS (11 sets, daily range): BP systolic 105–123; BP diastolic 67–83; PULSE 86–114; RESP 16–20; TEMP 36.2–37.2; O2SAT 92–98
--- NOTE | 2022-08-02 03:13 | PC.NURSE ---
Pt was administered PO lasix late due to pt receiving K rider at 40ml/hr per pt request. Pt states she can only tolerate that rate due to pain.
--- NOTE | 2022-08-02 05:01 | PC.NURSE ---
Pt refused Lasix due to not wanting to urinate through out the night.
[2022-08-02 08:43] LABS: Glucose Point of Care 136 mg/dl (65-105)
[2022-08-02] MEDS: PREGABALIN (*CRX) 50 MG CAPSULE 100 MG PO ×2 (09:37→21:01)
[2022-08-02] MEDS: EMPAGLIFLOZIN 10 MG TABLET PO (09:38)
[2022-08-02] MEDS: ASPIRIN 81 MG ENTERIC TABLET PO (09:38)
[2022-08-02] MEDS: POTASSIUM CHLORIDE 10 MEQ TABLET.ER PO (09:38)
[2022-08-02] MEDS: DULoxetine HCL 30 MG CAPSULE.DR 60 MG PO ×2 (09:38→21:01)
[2022-08-02] MEDS: MAGNESIUM OXIDE 400 MG TABLET PO (09:38)
[2022-08-02] MEDS: ENOXAPARIN 40 MG/0.4 ML SYRINGE SUB-Q (09:38)
[2022-08-02] MEDS: CLOPIDOGREL BISULFATE 75 MG TABLET PO (09:38)
[2022-08-02] MEDS: METOPROLOL SUCCINATE EXT REL 25 MG TABCR PO (09:38)
[2022-08-02] MEDS: INSULIN GLARGINE (*BKC) 100 UNITS/ML 20 UNITS SUB-Q (09:46)
[2022-08-02 10:58] LABS: Hematocrit 35.9 % (37.0-47.0); Hemoglobin 11.4 g/dL (12.0-15.0)
[2022-08-02 11:08] LABS: Anion Gap 5 mmol/L (8-16); Blood Urea Nitrogen 8 mg/dL (7-17); Calcium 8.2 mg/dL (8.4-10.2); Carbon Dioxide 21 mmol/L (22-30); Chloride 109 mmol/L (98-107); Estimated CRCL calculation 98 ml/min; Estimated Glomerular Filt Rate > 60; Glucose 183 mg/dL (65-110); Magnesium 1.9 mg/dL (1.6-2.3); Potassium 3.1 mmol/L (3.4-5.0); Sodium 135 mmol/L (137-145)
[2022-08-02 11:22] LABS: Glucose Point of Care 191 mg/dl (65-105)
--- NOTE | 2022-08-02 13:51 | PM.IMPN ---
Progress Note: A&P Assessment and Plan (1) Acute on chronic systolic heart failure: Code(s): I50.23 - Acute on chronic systolic (congestive) heart failure Status: Acute Assessment and Plan: Patient shortness of breath has improved and she is off oxygen but patient states that she thought she was going to overnight because of her shortness of breath - CTA shows no PE but does show mild pulmonary edema - patient has history of heart failure with reduced EF with a EF of 25-30%. -Not on Entresto. Sees Dr. Durant. would recommend f/u with their office to discuss this addtional treatment patient euvolemic clinically today. Takes furosemide 40 mg b.i.d. at home. Will resume home doses Was not able to tolerate Entresto had last admission needing to hypotension transferred to ICU. Subsequently started on beta-gisela small does which she barely tolerated (2) Hypokalemia: Code(s): E87.6 - Hypokalemia Status: Acute Assessment and Plan: improved from 2.6-3.1 - patient refused oral potassium ( liquid and pill) this morning so we will try to do IV - Patient takes potassium at home and has certain pills that she likes. She does not like or pills so if we need to replace her potassium during her hospital stay we will need to utilize IV - magnesium 2.0 (3) Chronic obstructive pulmonary disease: Code(s): J44.9 - Chronic obstructive pulmonary disease, unspecified Status: Acute Assessment and Plan: no wheezing on exam, no evidence of COPD exacerbation (4) Anxiety and depression: Code(s): F41.9 - Anxiety disorder, unspecified; F32.A - Depression, unspecified Status: Acute Assessment and Plan: chronic and stable - continue Cymbalta (5) Anxiety: Code(s): F41.9 - Anxiety disorder, unspecified Status: Acute Assessment and Plan: chronic and stable (6) Type 2 diabetes mellitus with hyperglycemia, with long-term current use of insulin: Code(s): E11.65 - Type 2 diabetes mellitus with hyperglycemia; Z79.4 - group home (current) use of insulin Status: Acute Assessment and Plan: last glucose 195 - A1c 8.8 - patient is currently on Lantus 20 units b.i.d., sliding scale insulin, and Jardiance -I'm going to verify her home regimen. She may need more meal time insulin since she is usually on 10u at home (7) Coronary artery disease: Qualifiers: Coronary Disease-Associated Artery/Lesion type: [place] artery [place] vs. transplanted heart: unspecified whether [place] or transplanted heart Code(s): I25.10 - Atherosclerotic heart disease of [place] coronary artery without angina pectoris Status: Chronic Assessment and Plan: With a history of coronary stenting. -continue with aspirin, Plavix, metoprolol, and jardiance -f/u with cardiology Plan print with shortness of breath found to be saturating 90% on room air no oxygen at home. Placed on 4 L nasal cannula received nebulizer treatment with improvement. Quit smoking 4 years ago. D-dimer was elevated 1.39 CTA negative for PE. Influenza COVID and RSV negative. Subjective Date/time seen: 08/02/22 13:51 Interval history: Pt is a 57-year-old female here for shortness of breath and CHF exacerbation. feeling better. She is from [facility]. She has right BKA. Denies any fever chills. Denies any cough. Discussed with the nursing staff. Refused her meds this morning Review of Systems Review of Systems: All systems reviewed & are unremarkable except as noted in HPI and below Exam Narrative: General: Well developed well nourished patient in NAD HEENT: normocephalic Neck: supple nontender Neuro: Alert and oriented x4 CV:RRR.Telemetry without abnormal alarm reviews Resp: crackles at the bases and decreased lung sounds. No rhonchi or wheezing. Abd: Soft, non distended. No pain to palpation. Positi
[2022-08-02 16:50] LABS: Glucose Point of Care 97 mg/dl (65-105)
[2022-08-02] MEDS: INSULIN GLARGINE (*BKC) 100 UNITS/ML 10 UNITS SUB-Q (17:52)
[2022-08-02] MEDS: ALBUTEROL SULFATE (*SP) AEROSOL 1 PUFF 2 PUFF INHALATION (21:12)
[2022-08-03] VITALS (9 sets, daily range): BP systolic 97–110; BP diastolic 59–80; PULSE 64–91; RESP 14–18; TEMP 36.1–37.1; O2SAT 97–99
[2022-08-03] MEDS: HYDROcodone/acetaminophen (*CRX) 5-325 MG TABLET 1 TAB PO ×3 (01:49→23:37)
[2022-08-03 06:36] LABS: Basophils Absolute Auto 0.1 K/mm3 (0.0-0.1); Basophils Percent Auto 0.7 % (0.2-1.2); Eosinophils Absolute Auto 0.2 K/mm3 (0-0.3); Eosinophils Percent Auto 2.4 % (0-4.4); Hematocrit 39.1 % (37.0-47.0); Hemoglobin 12.2 g/dL (12.0-15.0); Immature Granulocyte Absolute 0.03 K/mm3 (0.00-0.031); Immature Granulocyte Percent A 0.4 % (0-0.5); Lymphocytes Absolute Auto 2.34 K/mm3 (0.9-3.2); Lymphocytes Percent Auto 31.8 % (18.3-44.2); Mean Corpuscular HGB Conc 31.2 g/dl (32-36); Mean Corpuscular Hemoglobin 25.9 pg (26-34); Mean Platelet Volume 11.9 fl (7.4-10.4); Monocytes Absolute Auto 0.6 K/mm3 (0.1-0.6); Monocytes Percent Auto 8.1 % (2.6-8.5); Neutrophils Absolute Auto 4.2 K/mm3 (1.3-6.7); Neutrophils Percent Auto 56.6 % (45.5-73.1); Platelet Count Result 212 k/mm3 (150-375); Red Blood Count 4.71 M/mm3 (4.2-5.4); Red Cell Distribution Width 14.6 % (11.5-14.5); White Blood Count 7.4 K/mm3 (4.5-10.0)
[2022-08-03 07:24] LABS: Alanine Aminotransferase 15 U/L (6-35); Albumin Level 3.8 g/dL (3.5-5.1); Alkaline Phosphatase 94 U/L (38-126); Anion Gap 6 mmol/L (8-16); Aspartate Amino Transferase 18 U/L (14-36); Bilirubin,Total 0.7 mg/dL (0.2-1.3); Blood Urea Nitrogen 8 mg/dL (7-17); Calcium 8.2 mg/dL (8.4-10.2); Carbon Dioxide 22 mmol/L (22-30); Chloride 112 mmol/L (98-107); Estimated CRCL calculation 98 ml/min; Estimated Glomerular Filt Rate > 60; Glucose 63 mg/dL (65-110); Magnesium 1.9 mg/dL (1.6-2.3); Sodium 140 mmol/L (137-145)
[2022-08-03] MEDS: DULoxetine HCL 30 MG CAPSULE.DR 60 MG PO ×2 (08:38→20:57)
[2022-08-03] MEDS: METOPROLOL SUCCINATE EXT REL 25 MG TABCR PO (08:39)
[2022-08-03] MEDS: EMPAGLIFLOZIN 10 MG TABLET PO (08:39)
[2022-08-03] MEDS: CLOPIDOGREL BISULFATE 75 MG TABLET PO (08:41)
[2022-08-03] MEDS: ASPIRIN 81 MG ENTERIC TABLET PO (08:41)
[2022-08-03] MEDS: ENOXAPARIN 40 MG/0.4 ML SYRINGE SUB-Q (08:41)
[2022-08-03] MEDS: PREGABALIN (*CRX) 50 MG CAPSULE 100 MG PO ×2 (08:48→20:57)
--- NOTE | 2022-08-03 08:50 | PC.NURSE ---
Patient refused morning potassium, magnesium, and furosemide. Patient educated on use of medications. Patient stated will call son to see about bringing home supply of Potassium Chloride. Hospitalist made aware of refusal of medications and approved home use of potassium. Patient made aware.
[2022-08-03 09:04] LABS: Glucose Point of Care 67 mg/dl (65-105)
[2022-08-03 09:53] LABS: Glucose Point of Care 97 mg/dl (65-105)
[2022-08-03] MEDS: INSULIN GLARGINE (*BKC) 100 UNITS/ML 20 UNITS SUB-Q (11:10)
[2022-08-03 11:21] LABS: Glucose Point of Care 192 mg/dl (65-105)
--- NOTE | 2022-08-03 13:53 | PHAR ---
pt's home med kcl 10 meq er capsules verified by pharmacy
--- NOTE | 2022-08-03 13:54 | PHAR ---
pt's home med kcl 10 meq er capsules verified by pharmacy
[2022-08-03] MEDS: POTASSIUM CHLORIDE INJ 40 MEQ in SODIUM CHLORIDE 0.9% IV 500 ML 130 MEQ IVPB (15:31)
[2022-08-03 17:42] LABS: Glucose Point of Care 108 mg/dl (65-105)
[2022-08-03] MEDS: POTASSIUM CHLORIDE 10 MEQ TABLET.ER PO (17:50)
[2022-08-03] MEDS: INSULIN GLARGINE (*BKC) 100 UNITS/ML 10 UNITS SUB-Q (18:37)
[2022-08-03 21:47] LABS: Glucose Point of Care 179 mg/dl (65-105)
[2022-08-03] MEDS: ALPRAZolam (*CRX) 0.5 MG TABLET PO (23:48)
[2022-08-04] VITALS (7 sets, daily range): BP systolic 98–100; BP diastolic 52–61; PULSE 76–96; RESP 14–16; TEMP 36.3–36.4; O2SAT 93–95
--- NOTE | 2022-08-04 00:14 | PC.NURSE ---
Pt. refusing new IV to be placed and wants it to be placed via ultrasound. Message left for [facility] facilities specialist at 00:14 about needing IV access placed.
[2022-08-04 06:47] LABS: Alanine Aminotransferase 13 U/L (6-35); Albumin Level 3.5 g/dL (3.5-5.1); Alkaline Phosphatase 80 U/L (38-126); Anion Gap 5 mmol/L (8-16); Aspartate Amino Transferase 16 U/L (14-36); Bilirubin,Total 0.4 mg/dL (0.2-1.3); Blood Urea Nitrogen 8 mg/dL (7-17); Calcium 7.9 mg/dL (8.4-10.2); Carbon Dioxide 23 mmol/L (22-30); Chloride 109 mmol/L (98-107); Estimated CRCL calculation 98 ml/min; Estimated Glomerular Filt Rate > 60; Glucose 162 mg/dL (65-110); Magnesium 1.8 mg/dL (1.6-2.3); Potassium 3.1 mmol/L (3.4-5.0); Sodium 137 mmol/L (137-145)
[2022-08-04 06:50] LABS: Basophils Percent Auto 0.6 % (0.2-1.2); Eosinophils Absolute Auto 0.3 K/mm3 (0-0.3); Hematocrit 36.5 % (37.0-47.0); Hemoglobin 11.3 g/dL (12.0-15.0); Immature Granulocyte Absolute 0.01 K/mm3 (0.00-0.031); Immature Granulocyte Percent A 0.2 % (0-0.5); Lymphocytes Absolute Auto 2.13 K/mm3 (0.9-3.2); Lymphocytes Percent Auto 33.8 % (18.3-44.2); Mean Corpuscular Hemoglobin 25.6 pg (26-34); Mean Corpuscular Volume 82.8 fl (80-100); Mean Platelet Volume 12.5 fl (7.4-10.4); Monocytes Absolute Auto 0.5 K/mm3 (0.1-0.6); Monocytes Percent Auto 7.3 % (2.6-8.5); Neutrophils Absolute Auto 3.4 K/mm3 (1.3-6.7); Neutrophils Percent Auto 54.1 % (45.5-73.1); Platelet Count Result 199 k/mm3 (150-375); Red Blood Count 4.41 M/mm3 (4.2-5.4); Red Cell Distribution Width 14.6 % (11.5-14.5); White Blood Count 6.3 K/mm3 (4.5-10.0)
[2022-08-04 08:53] LABS: Glucose Point of Care 68 mg/dl (65-105)
[2022-08-04 09:15] LABS: Glucose Point of Care 110 mg/dl (65-105)
[2022-08-04] MEDS: POTASSIUM CHLORIDE 20 MEQ TABLET 40 MEQ PO (09:23)
[2022-08-04] MEDS: ASPIRIN 81 MG ENTERIC TABLET PO (09:24)
[2022-08-04] MEDS: POTASSIUM CHLORIDE 10 MEQ TABLET.ER PO (09:24)
[2022-08-04] MEDS: CLOPIDOGREL BISULFATE 75 MG TABLET PO (09:25)
[2022-08-04] MEDS: METOPROLOL SUCCINATE EXT REL 25 MG TABCR PO (09:25)
[2022-08-04] MEDS: MAGNESIUM OXIDE 400 MG TABLET PO (09:25)
[2022-08-04] MEDS: PREGABALIN (*CRX) 50 MG CAPSULE 100 MG PO (09:26)
[2022-08-04] MEDS: EMPAGLIFLOZIN 10 MG TABLET PO (09:26)
[2022-08-04] MEDS: FUROSEMIDE 40 MG TABLET PO (09:26)
[2022-08-04] MEDS: DULoxetine HCL 30 MG CAPSULE.DR 60 MG PO (09:26)
[2022-08-04] MEDS: ENOXAPARIN 40 MG/0.4 ML SYRINGE SUB-Q (09:27)
[2022-08-04] MEDS: INSULIN GLARGINE (*BKC) 100 UNITS/ML 20 UNITS SUB-Q (09:30)
--- NOTE | 2022-08-04 11:19 | PM.DS ---
DS: Admitting Diagnosis Discharge Date 08/04/2022 Admitting Diagnosis shortness of breath DS: Discharge Diagnosis Discharge Diagnosis (1) Acute on chronic systolic heart failure: Code(s): I50.23 - Acute on chronic systolic (congestive) heart failure Status: Acute (2) Hypokalemia: Code(s): E87.6 - Hypokalemia Status: Acute (3) Chronic obstructive pulmonary disease: Code(s): J44.9 - Chronic obstructive pulmonary disease, unspecified Status: Acute (4) Anxiety and depression: Code(s): F41.9 - Anxiety disorder, unspecified; F32.A - Depression, unspecified Status: Acute (5) Anxiety: Code(s): F41.9 - Anxiety disorder, unspecified Status: Acute (6) Type 2 diabetes mellitus with hyperglycemia, with long-term current use of insulin: Code(s): E11.65 - Type 2 diabetes mellitus with hyperglycemia; Z79.4 - ferry terminal agent (current) use of insulin Status: Acute (7) Coronary artery disease: Qualifiers: Coronary Disease-Associated Artery/Lesion type: [place] artery [place] vs. transplanted heart: unspecified whether [place] or transplanted heart Code(s): I25.10 - Atherosclerotic heart disease of [place] coronary artery without angina pectoris Status: Chronic DS: Summary Hospital Course Hospital Course: # Acute on chronic systolic heart failure: Patient presented with shortness of breath initially requiring oxygen supplementation, which has now improved and she is off oxygen but patient states that she thought she was going to overnight because of her shortness of breath - CTA shows no PE but does show mild pulmonary edema - patient has history of heart failure with reduced EF with a EF of 25-30%.? -Not on Entresto.? as she was not able to tolerate Entresto last admission leading to hypotension and transferred to ICU. She Sees Dr. Durant. would recommend f/u with their office to discuss this addtional treatment ?patient was started on IV diuresis with improvement in her shortness of breath. She was subsequently switched to oral Lasix during the hospital stay. Remained euvolemic on clinical examination. She does state that she is noncompliant with her Lasix at home. The reason being it makes her pee a lot. # hypokalemia: ?improved from? 2.6-3.1 Potassium was supplemented in the hospital stay. With her Lasix will need to increase her potassium supplementation to 20 mg b.i.d.. magnesium level was okay # COPD: ?no wheezing on exam, no evidence of COPD exacerbation # anxiety and depression: ?chronic and stable - continue Cymbalta # type 2 diabetes mellitus with long-term insulin use: - patient is currently on Lantus 20 units b.i.d., sliding scale insulin, and Jardiance . Few hypoglycemia is noted throughout the hospital stay. Will lower Lantus to 10 units b.i.d. with SSI. Continue to monitor Accu-Cheks at home and follow-up with PCP for further monitoring and treatment. # coronary artery disease status post stents -continue with aspirin, Plavix, metoprolol, and jardiance -f/u with cardiology # tobacco abuse quit smoking 4 years ago. # D-dimer elevation: 1.39. CTA negative for PE. Negative for influenza COVID and RSV. Time Spent with Patient Time attestation: Total time spent providing and/or coordinating discharge services: 45 minutes Exam Narrative: General: Well developed well nourished patient in NAD HEENT: normocephalic Neck: supple nontender Neuro: Alert and oriented x4 CV:RRR.Telemetry without abnormal alarm reviews Resp: crackles at the bases and decreased lung sounds. No rhonchi or wheezing. Abd: Soft, non distended. No pain to palpation. Positive bowel sounds Extremities: right leg [id number] amputation with normal appearing stone. Left leg Trace pitting edema up to the mid kumar DS: Data Data Completed and Pending Labs on day of discharge: Labs from last 24 hours 08/04/22 08/04/22
[2022-08-04 12:03] LABS: Glucose Point of Care 167 mg/dl (65-105)
[2022-08-04 14:49] LABS: Glucose Point of Care 64 mg/dl (65-105)
[2022-08-04 15:38] LABS: Glucose Point of Care 86 mg/dl (65-105)
--- NOTE | 2022-08-04 15:38 | PC.NURSE ---
pt c/o feeling shaky and states that she's diabetic, but has already had juice to help increase blood sugar. This rn checked blood sugar - 86. This rn informs pt on blood sugar and that it's considered normal , however might not be normal for her. She said it was not normal blood sugar for her. This RN informed pt that she should intake some protein with sugar to help assist keeping blood sugar normalized. Pt informed this rn that blood sugar prior to this one was 66. This rn offered turkey sandwich and fruit cup, pt refused. This rn offered pepsi, pt refused. This rn offered juice - cranberry and apple - pt refused. Pt offered jello, pudding, tray - pt states shes not hungry and does not want to eat. Pt agrees to Mia Mist. Pt agrees to staff member buying her some candy to help with the shakes.
[2022-08-04 17:41] LABS: Glucose Point of Care 137 mg/dl (65-105)
== END 2022-08-04 18:20 | disposition home health service (06) ==
LOC: ANHED 18:09 → ANH3MEDSUR 20:15 → ANHCPC 08-04 15:40
PROVIDERS: Nurse Practitioner; Physician Assistant; Admitting Provider Internal Medicine; Emergency Provider Emergency Medicine; PCP Emergency Medicine; Visit Provider Internal Medicine
DX: I50.23 Acute on chronic systolic (congestive) heart failure (principal); E87.6 Hypokalemia; J96.01 Acute respiratory failure with hypoxia; J44.9 Chronic obstructive pulmonary disease, unspecified; F41.9 Anxiety disorder, unspecified; F32.A Depression, unspecified; E11.65 Type 2 diabetes mellitus with hyperglycemia; I25.10 Atherosclerotic heart disease of native coronary artery without angina pectoris; Z95.5 Presence of coronary angioplasty implant and graft; E11.610 Type 2 diabetes mellitus with diabetic neuropathic arthropathy; R91.8 Other nonspecific abnormal finding of lung field; R79.1 Abnormal coagulation profile; Z20.822 Contact with and (suspected) exposure to COVID-19; R94.31 Abnormal electrocardiogram [ECG] [EKG]; E78.00 Pure hypercholesterolemia, unspecified; Z95.818 Presence of other cardiac implants and grafts; E11.51 Type 2 diabetes mellitus with diabetic peripheral angiopathy without gangrene; Z95.820 Peripheral vascular angioplasty status with implants and grafts; Z89.512 Acquired absence of left leg below knee; Z87.891 Personal history of nicotine dependence; Z79.4 Long term (current) use of insulin; Z79.85 Long-term (current) use of injectable non-insulin antidiabetic drugs; Z79.82 Long term (current) use of aspirin; Z79.891 Long term (current) use of opiate analgesic; Z79.899 Other long term (current) drug therapy; Z82.49 Family history of ischemic heart disease and other diseases of the circulatory system; Z82.61 Family history of arthritis
CPT/HCPCS: 36415; 71045; 71275; 80048; 80053; 82948; 83036; 83605; 83735; 83880; 84100; 84443; 84484; 85014; 85018; 85025; 85380; 85610; 85730; 87637; 93005; 93970; 94640; 96361; 96365; 96366; 96372; 96375; 99285; A9270; G0378; J1650; J1815; J3475; J3480; J7030; J7040; Q9967

== ENCOUNTER 2022-08-09 10:34 | Inpatient (IN) | payer MEDICARE, MEDICAID, SELFPAY ==
[2022-08-09] VITALS (13 sets, daily range): BP systolic 105–140; BP diastolic 63–82; PULSE 86–103; RESP 18–20; TEMP 36.1–37; O2SAT 92–100
--- NOTE | ~2022-08-09 | XR_ITS ---
EXAMINATION: XR chest 2V DATE: 08/09/2022 11:34 INDICATION: Shortness of breath and congestive heart failure. TECHNIQUE: frontal and lateral views of the chest were obtained. COMPARISON: Chest radiograph and CT dated 07/31/[address] abdomen and pelvis dated 03/30/2022 FINDINGS: Mild interstitial and airspace opacities at the bilateral lung bases. Small bilateral pleural effusio ns. No pneumothorax. Mild cardiomegaly. Left pectoral implantable engine monitor. Chronic L1 and L2 compression fractures with vertebroplasty at L1. Cholecystectomy clips at the right upper quadrant. IMPRESSION: 1. Opacities at the bilateral lung bases consistent with likely mild pulmonary edema, atelectasis and small bilateral pleural effusions. Differential would include pneumonia. 2. Cardiomegaly. Reviewed, dictated and finalized at location A. IER IMPRESSION: 1. Opacities at the bilateral lung bases consistent with likely mild pulmonary edema, atelectasis and small bilateral pleural effusions. Differential would in clude pneumonia. 2. Cardiomegaly.
--- NOTE | 2022-08-09 10:46 | ECG_ITS ---
Measurements Intervals [place] Rate: 91 P: 70 DE: 182 QRS: 11 QRSD: 106 T: 43 QT: 392 QTc: 482 Interpretive Statements SINUS RHYTHM POSSIBLE LEFT ATRIAL ENLARGEMENT NONSPECIFIC ST ABNORMALITY LOW-VOLTAGE QRS IN PRECORDIAL LEADS QT PROLONGATION BORDERLINE ECG COMPARED TO ECG 07/31/2022 15:23:31 CRITERIA FOR INFERIOR INFARCTION NO LONGER APPRECIATED QT PROLONGED Electronically Signed On 08-09-2022 15:53:24 CERTIFIED GREEN BUILDING ENGINEER by Elvin Smith M.D.
[2022-08-09 11:23] LABS: Basophils Percent Auto 0.5 % (0.2-1.2); Eosinophils Absolute Auto 0.2 K/mm3 (0-0.3); Eosinophils Percent Auto 1.8 % (0-4.4); Hematocrit 41.1 % (37.0-47.0); Hemoglobin 12.7 g/dL (12.0-15.0); Immature Granulocyte Absolute 0.01 K/mm3 (0.00-0.031); Immature Granulocyte Percent A 0.1 % (0-0.5); Lymphocytes Absolute Auto 2.34 K/mm3 (0.9-3.2); Mean Corpuscular HGB Conc 30.9 g/dl (32-36); Mean Corpuscular Hemoglobin 25.9 pg (26-34); Mean Corpuscular Volume 83.9 fl (80-100); Mean Platelet Volume 11.1 fl (7.4-10.4); Monocytes Absolute Auto 0.4 K/mm3 (0.1-0.6); Monocytes Percent Auto 4.7 % (2.6-8.5); Neutrophils Absolute Auto 5.4 K/mm3 (1.3-6.7); Neutrophils Percent Auto 64.9 % (45.5-73.1); Platelet Count Result 206 k/mm3 (150-375); Red Cell Distribution Width 14.5 % (11.5-14.5); White Blood Count 8.4 K/mm3 (4.5-10.0)
[2022-08-09 11:33] LABS: Prothrombin Time 12.6 Seconds (11.1-14.7)
[2022-08-09 11:38] LABS: Alanine Aminotransferase 21 U/L (6-35); Albumin Level 4.2 g/dL (3.5-5.1); Alkaline Phosphatase 103 U/L (38-126); Anion Gap 8 mmol/L (8-16); Aspartate Amino Transferase 23 U/L (14-36); Bilirubin,Total 0.7 mg/dL (0.2-1.3); Blood Urea Nitrogen 10 mg/dL (7-17); Calcium 8.5 mg/dL (8.4-10.2); Carbon Dioxide 24 mmol/L (22-30); Chloride 111 mmol/L (98-107); Estimated CRCL calculation 102 ml/min; Estimated Glomerular Filt Rate > 60; Glucose 241 mg/dL (65-110); Potassium 2.8 mmol/L (3.4-5.0); Sodium 143 mmol/L (137-145)
[2022-08-09 11:47] LABS: NT Pro B Type Natriuretic Pept 2560 pg/mL (5-100); Troponin I 0.022 ng/mL (0.000-0.034)
--- NOTE | 2022-08-09 12:44 | ED.SOB ---
HPI - SOB/Dyspnea General Chief Complaint: Shortness of Breath/Dyspnea Stated Complaint: shortness of breath Time Seen by Provider: 08/09/22 11:57 History of Present Illness HPI Narrative: Patient is a 57-year-old female with a history of COPD, CHF, diabetes, hypertension presenting with shortness of breath. Patient states that over the last several days she has had worsening orthopnea to the point that she has to sit up in order to breathe. States that even using 3-4 pillows is not enough. States that it feels difficult to take a deep breath. Patient is on Lasix at home but states that she has been skipping some nightly doses because she does not like to have to urinate throughout the night. She denies chest pain or lightheadedness. No cough or fevers. Denies abdominal pain, vomiting, diarrhea, dysuria, leg swelling. Related Data Home Medications Medication Instructions Recorded Confirmed insulin lispro 100 unit/mL 10 unit subcut TIDWM 03/30/22 08/09/22 subcutaneous solution (Admelog U-100 Insulin lispro) semaglutide 0.25 mg or 0.5 mg (2 1 mg subcut WEEKLY 03/30/22 08/09/22 mg/1.5 mL) subcutaneous pen injector (Ozempic) duloxetine 30 mg capsule,delayed 60 mg PO BID 06/15/22 08/09/22 release (Cymbalta) evolocumab 140 mg/mL subcutaneous 140 mg subcut [id number] 06/15/22 08/09/22 pen injector (Repatha SureClick) Allergies Allergy/AdvReac Type Severity Reaction Status Date / Time propofol Allergy Agitated Verified 05/02/22 01:11 Eyozcap-YWI-QpB Reductase AdvReac Intermediate MYALGIAS Verified 06/24/22 16:19 Inhibitor Review of Systems Review of Systems: All systems reviewed & are unremarkable except as noted in HPI and below [facility] Past Medical History Medical History (Updated 08/12/22 @ 15:43 by Sujey Rendon APRN) Anxiety Charcot's joint of foot in type 2 diabetes mellitus Of the right foot Chickenpox Chronic obstructive pulmonary disease Coronary artery disease Left anterior descending stent 01/2019. Usual advanced practice professional is Dr. 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 Peripheral vascular disease due to secondary diabetes Suspected sleep apnea AHI 35 on apnea link on 06/16/2022. Surgical History Surgical History History of appendectomy History of section History of hysterectomy Due to cervical changes. History of tonsillectomy and adenoidectomy Hx of BKA Right 11/19/20 at [facility] Status post cholecystectomy Stented coronary artery X1 Family History Family History Sibling Diabetes mellitus Mother Heart failure Cardiomegaly Arthritis Atrial fibrillation Family history of osteoporosis Family history of Alzheimer's disease Hypertension Cardiomyopathy Acute myocardial infarction History of heart artery stent Congestive heart failure Daughter Anxiety Father Esophagus cancer Cancer of spinal column Social History Social History Social History: The patient is . The patient had 4 children and 1 of her daughters is now. She is disabled. She is a former smoker. She denies any alcohol marijuana or illicit drugs. Surrogate medical decision maker: Jass Arciniega, son. Code status: Full code. Smoking packs per day: 1.5 Smoking cigarettes per day: 30.0 Years smoked: 20 Smoking pack-yea
[2022-08-09] MEDS: POTASSIUM CHLORIDE INJ 40 MEQ in SODIUM CHLORIDE 0.9% IV 500 ML 130 MEQ IVPB ×2 (13:32→23:09)
--- NOTE | 2022-08-09 13:42 | PC.NURSE ---
Pt refused PO tabs of Potassium said , I can not swallow it it is too big . Pt refused potassium liquid said it taste bad . EDP made aware.
--- NOTE | 2022-08-09 13:45 | PM.IMHP ---
H&P: HPI History of Present Illness Date/Time: 08/09/22 13:45 Chief Complaint: Shortness of breath. Narrative: This is a 57-year-old female with heart failure with reduced ejection fraction most recent EF of 25 to 30%, COPD, coronary artery disease, insulin dependent diabetes, hyperlipidemia, and peripheral vascular disease who presented to the ED via EMS from home for evaluation of shortness of breath. She is well known to the hospitalist service and has been admitted several times in the last couple of months. Towards the beginning of June she had a stress test showing a large, severe nonreversible perfusion defect and a subsequent cardiac catheterization revealed diffuse disease. No intervention was undertaken as it was felt she would benefit from being seen at a tertiary care facility for high risk PCI. At that time she was prescribed aspirin, clopidogrel, empagliflozin, metoprolol, and Entresto which she was unable to tolerate due to hypotension. She is not always compliant with her medications and she admits that she has not been taking her Lasix twice a day ?because I will be up all night peeing.? The last couple of days she has become increasingly short of breath with increasing lower extremity edema and orthopnea. Chest x-ray showed findings of mild pulmonary edema and the labs were significant for a potassium of 2.8 and a proBNP of 2560. The patient states compliance with her potassium pills at home though she is repeatedly hypokalemic on arrival to the hospital. Oral and IV potassium supplementation were ordered in the ED however she refused both and oral tablet and the liquid potassium. She is being admitted in this setting for treatment of CHF exacerbation related to noncompliance from Lasix however she is unable to be diuresed at this point given her hypokalemia. Review of Systems Review of Systems: Twelve systems were reviewed. No fever, chills, or sweats. No nausea, vomiting, or diarrhea. She was given a neb and route to the ER which she believes helped her shortness of breath somewhat. Last night she was having palpitations and tightness in her chest due to feelings of shortness of breath but that has since resolved. Except as documented, all other systems were reviewed and are negative. [facility] Past Medical History Medical History (Updated 08/09/22 @ 21:19 by Mireya Matson PA-C) Anxiety Charcot's joint of foot in type 2 diabetes mellitus Of the right foot Chickenpox Chronic obstructive pulmonary disease Coronary artery disease Left anterior descending stent 01/2019. Usual instructor military science is Dr. 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 Peripheral vascular disease due to secondary diabetes Suspected sleep apnea AHI 35 on apnea link on 06/16/2022. Surgical History Surgical History History of appendectomy History of section History of hysterectomy Due to cervical changes. History of tonsillectomy and adenoidectomy Hx of BKA Right 11/19/20 at [facility] Status post cholecystectomy Stented coronary artery X1 Family History Family History Sibling Diabetes mellitus Mother Heart failure Cardiomegaly Arthritis Atrial fibrillation Family history of osteoporosis Family history of Alzheimer's disease Hypertension Cardiomyopathy Acute myocardial infarction History of heart artery stent Congestive heart failure
[2022-08-09 14:38] LABS: Influenza A QL RT-PCR Negative (Negative); Influenza B QL RT-PCR Negative (Negative); SARS-CoV-2 RNA PCR Negative
--- NOTE | 2022-08-09 15:50 | ADMGEN ---
This patient, Tiff Vaughn, was admitted to Medical Room 251-. Patient/family oriented to hospital policies and general routines including ID bracelet, bed and alarms, visiting hours, pain management, procedures, bathroom and other care routines, personal items, smoking policy, room service/diet, and visiting hours. Information on how to activate the Rapid Response Team has been discussed. Patient/Family are encouraged to report perceived risks to care and to ask questions if they do not understand what they are told or what they should do.
[2022-08-09] MEDS: ALBUTEROL SULFATE NEB 2.5 MG/3 ML INH INHALATION (16:59)
[2022-08-09] MEDS: IPRATROPIUM BR 0.02% INH SOLN 0.5 MG/2.5 ML VIAL INHALATION (16:59)
[2022-08-09 20:54] LABS: Magnesium 1.7 mg/dL (1.6-2.3); Potassium 3.3 mmol/L (3.4-5.0)
[2022-08-09 21:09] LABS: Glucose Point of Care 219 mg/dl (65-105)
[2022-08-09] MEDS: DULoxetine HCL 60 MG CAPSULE.DR PO (23:09)
[2022-08-09] MEDS: ALPRAZolam (*CRX) 0.5 MG TABLET PO (23:18)
[2022-08-09] MEDS: HYDROcodone/acetaminophen (*CRX) 5-325 MG TABLET 1 TAB PO (23:18)
[2022-08-10] VITALS (11 sets, daily range): BP systolic 106–130; BP diastolic 62–73; PULSE 78–105; RESP 18–20; TEMP 36.4–37.1; O2SAT 93–97
[2022-08-10] MEDS: FUROSEMIDE INJ 40 MG/4 ML VIAL IV PUSH ×3 (05:13→16:18)
[2022-08-10 05:59] LABS: Anion Gap 4 mmol/L (8-16); Blood Urea Nitrogen 8 mg/dL (7-17); Calcium 7.9 mg/dL (8.4-10.2); Carbon Dioxide 23 mmol/L (22-30); Chloride 109 mmol/L (98-107); Estimated CRCL calculation 102 ml/min; Estimated Glomerular Filt Rate > 60; Glucose 200 mg/dL (65-110); Magnesium 1.8 mg/dL (1.6-2.3); Potassium 3.8 mmol/L (3.4-5.0); Sodium 136 mmol/L (137-145)
--- NOTE | 2022-08-10 07:15 | P.PNIM_ITS ---
Progress Note: A&P Assessment and Plan (1) Acute on chronic heart failure with reduced ejection fraction and diastolic dysfunction: Code(s): I50.43 - Acute on chronic combined systolic (congestive) and diastolic (congestive) heart failure Status: Acute Assessment and Plan: Patient with history of CHF presents to the ED with orthopnea and states that with 3-4 pillows she still has difficulty breathing at night. Patient has been noncompliance with her Lasix due to not wanting to use the bathroom and night. Unable to diurese the patient due to her refusal of potassium on admission. * EKG: Left atrial enlargement, low-voltage QRS, QT prolongation; compared to EKG on 07/31/2022 criteria for inferior infarction no longer appreciated * Chest x-ray: Pulmonary edema, atelectasis and small bilateral pleural effusions; cardiomegaly * Echo ordered * BNP 2560 * Kidney function stable * Potassium on arrival 2.8 * Since admission patient has agreed to 2 infusions of 40 mEq of potassium chloride * 08/10/22 potassium 3.8. * Initiate IV Lasix 40 mg IV b.i.d. * Continue to monitor potassium * Telemetry order * Daily weights * Strict I&Os * Fall precautions (2) Hypokalemia: Code(s): E87.6 - Hypokalemia Status: Acute Assessment and Plan: Patient is compliant with potassium at home. Does have a history of chronic hypokalemia. * Patient refusing all forms of potassium on admission * Magnesium level of 1.8 * Patient received to doses of 40 mEq potassium IV on 08/10/2022. * Patient started on IV Lasix 40 mg b.i.d. * Potassium checks q.6 hours * Replace potassium as needed (3) Chronic obstructive pulmonary disease: Code(s): J44.9 - Chronic obstructive pulmonary disease, unspecified Status: Acute Assessment and Plan: Chronic * No evidence of acute exacerbation. * Monitor (4) Type 2 diabetes mellitus: Code(s): E11.9 - Type 2 diabetes mellitus without complications Status: Acute Assessment and Plan: Chronic * Continue basal insulin. * Initiate sliding scale insulin, Accu-Cheks, and hypoglycemic protocol. * Hemoglobin A1c on 07/31 was 8.8 (5) Coronary artery disease: Code(s): I25.10 - Atherosclerotic heart disease of [place] coronary artery without angina pectoris Status: Acute Assessment and Plan: Chronic * Continue aspirin, clopidogrel, metoprolol, and empagliflozin. * She did not tolerate Entresto due to hypotension. (6) Suspected sleep apnea: Code(s): R29.818 - Other symptoms and signs involving the nervous system Status: Acute Assessment and Plan: Suspected * AHI was 35 on apnea link on 06/16/2022. * She will need a formal outpatient polysomnogram. * Monitor oxygen saturation Time Spent With Patient Time with patient: Greater than 35 minutes Subjective Date/time seen: 08/10/22 07:15 Interval history: 57-year-old patient with a history of COPD, CHF, diabetes, PVD, and CAD. Patient admitted due to increased orthopnea and CHF exacerbation. Patient has received 2, 40 mEq IV potassium along with 40 mg IV Lasix b.i.d. patient reports feeling better from admission. Patient is able to lay back without progressive shortness of breath. When entering the room patient was lying semi Gibbons's with 2 pillows. Patient denies chest pain, nausea, vomiting, diarrhea, pain with urination and fever. Shortness of breath improving and frequent urination on Lasix. Review of Systems Review of Systems: All systems reviewed & are unremar
--- NOTE | 2022-08-10 07:15 | PM.IMPN ---
Progress Note: A&P Assessment and Plan (1) Acute on chronic heart failure with reduced ejection fraction and diastolic dysfunction: Code(s): I50.43 - Acute on chronic combined systolic (congestive) and diastolic (congestive) heart failure Status: Acute Assessment and Plan: Patient with history of CHF presents to the ED with orthopnea and states that with 3-4 pillows she still has difficulty breathing at night. Patient has been noncompliance with her Lasix due to not wanting to use the bathroom and night. Unable to diurese the patient due to her refusal of potassium on admission. EKG: Left atrial enlargement, low-voltage QRS, QT prolongation; compared to EKG on 07/31/2022 criteria for inferior infarction no longer appreciated Chest x-ray: Pulmonary edema, atelectasis and small bilateral pleural effusions; cardiomegaly Echo ordered BNP 2560 Kidney function stable Potassium on arrival 2.8 Since admission patient has agreed to 2 infusions of 40 mEq of potassium chloride 08/10/22 potassium 3.8. Initiate IV Lasix 40 mg IV b.i.d. Continue to monitor potassium Telemetry order Daily weights Strict I&Os Fall precautions (2) Hypokalemia: Code(s): E87.6 - Hypokalemia Status: Acute Assessment and Plan: Patient is compliant with potassium at home. Does have a history of chronic hypokalemia. Patient refusing all forms of potassium on admission Magnesium level of 1.8 Patient received to doses of 40 mEq potassium IV on 08/10/2022. Patient started on IV Lasix 40 mg b.i.d. Potassium checks q.6 hours Replace potassium as needed (3) Chronic obstructive pulmonary disease: Code(s): J44.9 - Chronic obstructive pulmonary disease, unspecified Status: Acute Assessment and Plan: Chronic No evidence of acute exacerbation. Monitor (4) Type 2 diabetes mellitus: Code(s): E11.9 - Type 2 diabetes mellitus without complications Status: Acute Assessment and Plan: Chronic Continue basal insulin. Initiate sliding scale insulin, Accu-Cheks, and hypoglycemic protocol. Hemoglobin A1c on 07/31 was 8.8 (5) Coronary artery disease: Code(s): I25.10 - Atherosclerotic heart disease of [place] coronary artery without angina pectoris Status: Acute Assessment and Plan: Chronic Continue aspirin, clopidogrel, metoprolol, and empagliflozin. She did not tolerate Entresto due to hypotension. (6) Suspected sleep apnea: Code(s): R29.818 - Other symptoms and signs involving the nervous system Status: Acute Assessment and Plan: Suspected AHI was 35 on apnea link on 06/16/2022. She will need a formal outpatient polysomnogram. Monitor oxygen saturation Time Spent With Patient Time with patient: Greater than 35 minutes Subjective Date/time seen: 08/10/22 07:15 Interval history: 57-year-old patient with a history of COPD, CHF, diabetes, PVD, and CAD. Patient admitted due to increased orthopnea and CHF exacerbation. Patient has received 2, 40 mEq IV potassium along with 40 mg IV Lasix b.i.d. patient reports feeling better from admission. Patient is able to lay back without progressive shortness of breath. When entering the room patient was lying semi Gibbons's with 2 pillows. Patient denies chest pain, nausea, vomiting, diarrhea, pain with urination and fever. Shortness of breath improving and frequent urination on Lasix. Review of Systems Review of Systems: All systems reviewed & are unremarkable except as noted in HPI and below Exam Narrative: GENERAL: Comfortable, no acute distress HENMT: moist mucous membranes EYES: EOM intact b/l NECK: no lymphadenopathy RESPIRATORY: clear to auscultation CARDIO: RRR GI: soft, nontender, bowel sounds present SKIN: no rashes EXTREMITIES: +1 pitting edema from the kumar down on the left leg, lower knee amputation of the right leg, no redness, no tenderness Objective Data V
[2022-08-10] MEDS: INSULIN ASPART (*BKC) 100 UNITS/ML SUB-Q (09:32)
[2022-08-10] MEDS: DULoxetine HCL 60 MG CAPSULE.DR PO ×2 (09:34→16:18)
[2022-08-10] MEDS: EMPAGLIFLOZIN 10 MG TABLET PO (09:34)
[2022-08-10] MEDS: CLOPIDOGREL BISULFATE 75 MG TABLET PO (09:34)
[2022-08-10] MEDS: ASPIRIN 81 MG ENTERIC TABLET PO (09:34)
[2022-08-10] MEDS: METOPROLOL SUCCINATE EXT REL 25 MG TABCR PO (09:34)
[2022-08-10] MEDS: POTASSIUM CHLORIDE 10 MEQ TABLET.ER 20 MEQ PO (09:34)
[2022-08-10] MEDS: MAGNESIUM OXIDE 400 MG TABLET PO (09:34)
[2022-08-10] MEDS: ENOXAPARIN 40 MG/0.4 ML SYRINGE SUB-Q (09:38)
[2022-08-10 10:09] LABS: Glucose Point of Care 231 mg/dl (65-105)
[2022-08-10 12:09] LABS: Glucose Point of Care 191 mg/dl (65-105)
[2022-08-10 12:09] LABS: Potassium 3.3 mmol/L (3.4-5.0)
[2022-08-10 17:26] LABS: Glucose Point of Care 188 mg/dl (65-105)
[2022-08-10 18:22] LABS: Potassium 3.4 mmol/L (3.4-5.0)
[2022-08-10] MEDS: PREGABALIN (*CRX) 50 MG CAPSULE 100 MG PO (21:38)
[2022-08-10 21:51] LABS: Glucose Point of Care 203 mg/dl (65-105)
[2022-08-10] MEDS: LOPERAMIDE HCL 2 MG CAPSULE PO (22:44)
[2022-08-10] MEDS: ALPRAZolam (*CRX) 0.5 MG TABLET PO (23:17)
[2022-08-10] MEDS: HYDROcodone/acetaminophen (*CRX) 5-325 MG TABLET 1 TAB PO (23:17)
[2022-08-11] VITALS (10 sets, daily range): BP systolic 100–107; BP diastolic 55–77; PULSE 77–104; RESP 14–20; TEMP 36.1–36.5; O2SAT 96–99
--- NOTE | 2022-08-11 | ECHO_ITS ---
Patient Info Name: Tiff Vaughn Age: 57 years : 1965 Gender: Female Ht: 68 in Wt: 169 lbs BSA: 1.93 m2 HR: 105 bpm BP: 130 / 73 mmHg Heart Rhythm: Sinus Rhythm Technical Quality: Fair Exam Date: 08/11/2022 8:16 AM Exam Location: [facility] Card Pulmonary Patient Status: Inpatient Admit Date: 08/09/2022 Staff Ordering Physician: Toshia Garcia PA-C [employer] Developer: Linda Corona RDCS Attending Provider: Zay Bass MD Referring Physician: Jose HERNANDEZ; Exam Type: CA echo dop color flow w con Study Info Indications - worsening chf Complete two-dimensional, color flow and Doppler transthoracic echocardiogram is performed with contrast to opacify the left ventricle and to improve the deliniation of the left ventricle endocardial borders. Contrast/Agitated Saline Contrast/Ag. Saline: Definity Amount: 3.00 ml Administered By: Linda Corona RDCS Existing IV Access: Yes IV Access Condition: patent with no signs of infiltration Summary 1. Technically difficult study with limited views. Cannot rule out apical thrombus due to heavy trabeculations. 2. Left ventricular chamber dimension is normal. 3. Left ventricular systolic function is moderately reduced, estimated at 30-35% with severe hypokinesis of apical lateral, anterolateral, and anterior schaefer.. 4. There is mildly increased left ventricular wall thickness. 5. Left ventricular septal wall motion is abnormal with septal motion related to bundle branch block. 6. The left ventricular diastolic function is grade I diastolic dysfunction. 7. There is mild aortic valve stenosis with a peak velocity of 132.93 cm/s, mean gradient of 4 mmHg, and aortic valve area of 1.53 cm2. 8. There is trace aortic valve regurgitation. 9. There is trace tricuspid valve regurgitation. 10. No pulmonary hypertension, estimated pulmonary arterial systolic pressure is 23 mmHg. 11. There is mild mitral valve regurgitation. 12. Left pleural effusion. Left Ventricle Left ventricular chamber dimension is normal. Left ventricular systolic function is moderately reduced, estimated at 30-35% with severe hypokinesis of apical lateral, anterolateral, and anterior schaefer.. There is mildly increased left ventricular wall thickness. Left ventricular septal wall motion is abnormal with septal motion related to bundle branch block. The left ventricular diastolic function is grade I diastolic dysfunction. Technically difficult study with limited views. Cannot rule out apical thrombus due to heavy trabeculations. Right Ventricle Right ventricular chamber dimension is normal. Right ventricular systolic function is normal. Left Atria Left atrial chamber dimension is normal. Right Atria Right atrial chamber dimension is normal. Aortic Valve The aortic valve is trileaflet. There is mild aortic valve stenosis with a peak velocity of 132.93 cm/s, mean gradient of 4 mmHg, and aortic valve area of 1.53 cm2. There is trace aortic valve regurgitation. There is mild aortic valve calcification. Pulmonic Valve The pulmonic valve is not well visualized. Mitral Valve The mitral valve has thickened leaflets. There is mild mitral valve regurgitation. The mitral valve annulus is mildly calcified. Tricuspid Valve The tricuspid valve leaflets are normal. There is trace tricuspid valve regurgitation. No pulmonary hypertension, estimated pulmonary arterial systolic pressure is 23 mmHg.
[2022-08-11 00:57] LABS: Potassium 3.1 mmol/L (3.4-5.0)
[2022-08-11 06:01] LABS: Hematocrit 40.7 % (37.0-47.0); Hemoglobin 12.6 g/dL (12.0-15.0); Mean Corpuscular Hemoglobin 25.8 pg (26-34); Mean Corpuscular Volume 83.4 fl (80-100); Mean Platelet Volume 11.5 fl (7.4-10.4); Platelet Count Result 241 k/mm3 (150-375); Red Blood Count 4.88 M/mm3 (4.2-5.4); Red Cell Distribution Width 14.3 % (11.5-14.5); White Blood Count 7.2 K/mm3 (4.5-10.0)
[2022-08-11 06:13] LABS: Alanine Aminotransferase 19 U/L (6-35); Alkaline Phosphatase 100 U/L (38-126); Anion Gap 9 mmol/L (8-16); Aspartate Amino Transferase 18 U/L (14-36); Bilirubin,Total 0.7 mg/dL (0.2-1.3); Blood Urea Nitrogen 12 mg/dL (7-17); Calcium 8.6 mg/dL (8.4-10.2); Carbon Dioxide 28 mmol/L (22-30); Chloride 102 mmol/L (98-107); Estimated CRCL calculation 80 ml/min; Estimated Glomerular Filt Rate > 60; Glucose 187 mg/dL (65-110); Magnesium 1.8 mg/dL (1.6-2.3); Sodium 139 mmol/L (137-145)
[2022-08-11] MEDS: POTASSIUM CHLORIDE INJ 40 MEQ in SODIUM CHLORIDE 0.9% IV 500 ML 130 MEQ IVPB (07:49)
[2022-08-11 08:44] LABS: Glucose Point of Care 168 mg/dl (65-105)
[2022-08-11] MEDS: PERFLUTREN LIPID MICROSPHERES 1.5 ML VIAL DILUTED TO 10 ML TOTAL VOLUME IV PUSH (09:00)
[2022-08-11] MEDS: POTASSIUM CHLORIDE 10 MEQ TABLET.ER 20 MEQ PO (09:21)
[2022-08-11] MEDS: FUROSEMIDE INJ 40 MG/4 ML VIAL IV PUSH (09:21)
[2022-08-11] MEDS: PREGABALIN (*CRX) 50 MG CAPSULE 100 MG PO ×2 (09:21→21:23)
[2022-08-11] MEDS: ASPIRIN 81 MG ENTERIC TABLET PO (09:21)
[2022-08-11] MEDS: CLOPIDOGREL BISULFATE 75 MG TABLET PO (09:21)
[2022-08-11] MEDS: EMPAGLIFLOZIN 10 MG TABLET PO (09:22)
[2022-08-11] MEDS: METOPROLOL SUCCINATE EXT REL 25 MG TABCR PO (09:22)
[2022-08-11] MEDS: ENOXAPARIN 40 MG/0.4 ML SYRINGE SUB-Q (09:22)
[2022-08-11] MEDS: DULoxetine HCL 60 MG CAPSULE.DR PO ×2 (09:25→16:16)
[2022-08-11 12:39] LABS: Glucose Point of Care 223 mg/dl (65-105)
[2022-08-11] MEDS: INSULIN ASPART (*BKC) 100 UNITS/ML SUB-Q ×2 (13:02→17:40)
--- NOTE | 2022-08-11 14:24 | P.PNIM_ITS ---
Progress Note: A&P Assessment and Plan (1) Acute on chronic heart failure with reduced ejection fraction and diastolic dysfunction: Code(s): I50.43 - Acute on chronic combined systolic (congestive) and diastolic (congestive) heart failure Status: Acute Assessment and Plan: Patient with history of CHF presents to the ED with orthopnea and states that with 3-4 pillows she still has difficulty breathing at night. Patient has been noncompliance with her Lasix due to not wanting to use the bathroom and night. Unable to diurese the patient due to her refusal of potassium on admission. * EKG: Left atrial enlargement, low-voltage QRS, QT prolongation; compared to EKG on 07/31/2022 criteria for inferior infarction no longer appreciated * Chest x-ray: Pulmonary edema, atelectasis and small bilateral pleural effusions; cardiomegaly * Echo ordered * BNP 2560 * Kidney function stable * Potassium on arrival 2.8 * Since admission patient has agreed to 2 infusions of 40 mEq of potassium chloride * 08/10/22 potassium 3.8. * Initiate IV Lasix 40 mg IV b.i.d. * Continue to monitor potassium * Telemetry order * Daily weights * Strict I&Os * Fall precautions * 08/11/22 patient doing much better today. Plan to deescalate Lasix to patient's home p.o. Lasix 40 mg. Discussed with patient the importance of taking her Lasix after discharge and how if she does not there is a possibility she could end up back here with another CHF exacerbation. (2) Hypokalemia: Code(s): E87.6 - Hypokalemia Status: Acute Assessment and Plan: Patient is compliant with potassium at home. Does have a history of chronic hypokalemia. * Patient refusing all forms of potassium on admission * Magnesium level of 1.8 * Patient received to doses of 40 mEq potassium IV on 08/10/2022. * Patient started on IV Lasix 40 mg b.i.d. * Potassium checks q.6 hours * Replace potassium as needed (3) Chronic obstructive pulmonary disease: Code(s): J44.9 - Chronic obstructive pulmonary disease, unspecified Status: Acute Assessment and Plan: Chronic * No evidence of acute exacerbation. * Monitor (4) Type 2 diabetes mellitus: Code(s): E11.9 - Type 2 diabetes mellitus without complications Status: Acute Assessment and Plan: Chronic * Continue basal insulin. * Initiate sliding scale insulin, Accu-Cheks, and hypoglycemic protocol. * Hemoglobin A1c on 07/31 was 8.8 (5) Coronary artery disease: Code(s): I25.10 - Atherosclerotic heart disease of [place] coronary artery without angina pectoris Status: Acute Assessment and Plan: Chronic * Continue aspirin, clopidogrel, metoprolol, and empagliflozin. * She did not tolerate Entresto due to hypotension. (6) Suspected sleep apnea: Code(s): R29.818 - Other symptoms and signs involving the nervous system Status: Acute Assessment and Plan: Suspected * AHI was 35 on apnea link on 06/16/2022. * She will need a formal outpatient polysomnogram. * Monitor oxygen saturation Subjective Date/time seen: 08/11/22 14:24 Interval history: 57-year-old patient with a history of COPD, CHF, diabetes, PVD, and CAD. Patient admitted due to increased orthopnea and CHF exacerbation. Patient continuing IV Lasix 40 mg b.i.d. patient states that her symptoms are improving. She complains about taking Lasix and the amount of urination she is having. Patient denies chest pain, nausea, vomiting, diarrhea, pain with urination and fever. Shortness of breath improving and frequen
--- NOTE | 2022-08-11 14:24 | PM.IMPN ---
Progress Note: A&P Assessment and Plan (1) Acute on chronic heart failure with reduced ejection fraction and diastolic dysfunction: Code(s): I50.43 - Acute on chronic combined systolic (congestive) and diastolic (congestive) heart failure Status: Acute Assessment and Plan: Patient with history of CHF presents to the ED with orthopnea and states that with 3-4 pillows she still has difficulty breathing at night. Patient has been noncompliance with her Lasix due to not wanting to use the bathroom and night. Unable to diurese the patient due to her refusal of potassium on admission. EKG: Left atrial enlargement, low-voltage QRS, QT prolongation; compared to EKG on 07/31/2022 criteria for inferior infarction no longer appreciated Chest x-ray: Pulmonary edema, atelectasis and small bilateral pleural effusions; cardiomegaly Echo ordered BNP 2560 Kidney function stable Potassium on arrival 2.8 Since admission patient has agreed to 2 infusions of 40 mEq of potassium chloride 08/10/22 potassium 3.8. Initiate IV Lasix 40 mg IV b.i.d. Continue to monitor potassium Telemetry order Daily weights Strict I&Os Fall precautions 08/11/22 patient doing much better today. Plan to deescalate Lasix to patient's home p.o. Lasix 40 mg. Discussed with patient the importance of taking her Lasix after discharge and how if she does not there is a possibility she could end up back here with another CHF exacerbation. (2) Hypokalemia: Code(s): E87.6 - Hypokalemia Status: Acute Assessment and Plan: Patient is compliant with potassium at home. Does have a history of chronic hypokalemia. Patient refusing all forms of potassium on admission Magnesium level of 1.8 Patient received to doses of 40 mEq potassium IV on 08/10/2022. Patient started on IV Lasix 40 mg b.i.d. Potassium checks q.6 hours Replace potassium as needed (3) Chronic obstructive pulmonary disease: Code(s): J44.9 - Chronic obstructive pulmonary disease, unspecified Status: Acute Assessment and Plan: Chronic No evidence of acute exacerbation. Monitor (4) Type 2 diabetes mellitus: Code(s): E11.9 - Type 2 diabetes mellitus without complications Status: Acute Assessment and Plan: Chronic Continue basal insulin. Initiate sliding scale insulin, Accu-Cheks, and hypoglycemic protocol. Hemoglobin A1c on 07/31 was 8.8 (5) Coronary artery disease: Code(s): I25.10 - Atherosclerotic heart disease of [place] coronary artery without angina pectoris Status: Acute Assessment and Plan: Chronic Continue aspirin, clopidogrel, metoprolol, and empagliflozin. She did not tolerate Entresto due to hypotension. (6) Suspected sleep apnea: Code(s): R29.818 - Other symptoms and signs involving the nervous system Status: Acute Assessment and Plan: Suspected AHI was 35 on apnea link on 06/16/2022. She will need a formal outpatient polysomnogram. Monitor oxygen saturation Subjective Date/time seen: 08/11/22 14:24 Interval history: 57-year-old patient with a history of COPD, CHF, diabetes, PVD, and CAD. Patient admitted due to increased orthopnea and CHF exacerbation. Patient continuing IV Lasix 40 mg b.i.d. patient states that her symptoms are improving. She complains about taking Lasix and the amount of urination she is having. Patient denies chest pain, nausea, vomiting, diarrhea, pain with urination and fever. Shortness of breath improving and frequent urination on Lasix. Review of Systems Review of Systems: All systems reviewed & are unremarkable except as noted in HPI and below Exam Narrative: GENERAL: Comfortable, no acute distress HENMT: moist mucous membranes EYES: EOM intact b/l NECK: no lymphadenopathy RESPIRATORY: clear to auscultation CARDIO: RRR GI: soft, nontender, bowel sounds present SKIN: no rashes EXTREMITIES: Edema improved, lower k
[2022-08-11] MEDS: FUROSEMIDE 40 MG TABLET PO (16:16)
[2022-08-11] MEDS: HYDROcodone/acetaminophen (*CRX) 5-325 MG TABLET 1 TAB PO ×2 (17:29→23:48)
[2022-08-11 17:34] LABS: Glucose Point of Care 204 mg/dl (65-105)
[2022-08-11 21:31] LABS: Glucose Point of Care 281 mg/dl (65-105)
[2022-08-11] MEDS: ALPRAZolam (*CRX) 0.5 MG TABLET PO (23:51)
[2022-08-12] VITALS (11 sets, daily range): BP systolic 95–109; BP diastolic 59–62; PULSE 80–109; RESP 16–20; TEMP 36.1–36.5; O2SAT 93–98
[2022-08-12 05:50] LABS: Hematocrit 42.4 % (37.0-47.0); Hemoglobin 12.8 g/dL (12.0-15.0); Mean Corpuscular HGB Conc 30.2 g/dl (32-36); Mean Corpuscular Hemoglobin 25.4 pg (26-34); Mean Corpuscular Volume 84.1 fl (80-100); Mean Platelet Volume 11.5 fl (7.4-10.4); Platelet Count Result 239 k/mm3 (150-375); Red Blood Count 5.04 M/mm3 (4.2-5.4); Red Cell Distribution Width 14.3 % (11.5-14.5); White Blood Count 8.1 K/mm3 (4.5-10.0)
[2022-08-12 06:07] LABS: Alanine Aminotransferase 17 U/L (6-35); Albumin Level 4.1 g/dL (3.5-5.1); Alkaline Phosphatase 82 U/L (38-126); Anion Gap 10 mmol/L (8-16); Aspartate Amino Transferase 26 U/L (14-36); Bilirubin,Total 0.8 mg/dL (0.2-1.3); Blood Urea Nitrogen 20 mg/dL (7-17); Calcium 8.1 mg/dL (8.4-10.2); Carbon Dioxide 28 mmol/L (22-30); Chloride 97 mmol/L (98-107); Estimated CRCL calculation 91 ml/min; Estimated Glomerular Filt Rate > 60; Glucose 179 mg/dL (65-110); Potassium 3.7 mmol/L (3.4-5.0); Sodium 135 mmol/L (137-145)
[2022-08-12] MEDS: ENOXAPARIN 40 MG/0.4 ML SYRINGE SUB-Q (08:17)
[2022-08-12] MEDS: MAGNESIUM OXIDE 400 MG TABLET PO (08:17)
[2022-08-12] MEDS: EMPAGLIFLOZIN 10 MG TABLET PO (08:18)
[2022-08-12] MEDS: METOPROLOL SUCCINATE EXT REL 25 MG TABCR PO (08:18)
[2022-08-12] MEDS: FUROSEMIDE 40 MG TABLET PO ×2 (08:18→16:55)
[2022-08-12] MEDS: DULoxetine HCL 60 MG CAPSULE.DR PO ×2 (08:18→16:55)
[2022-08-12] MEDS: CLOPIDOGREL BISULFATE 75 MG TABLET PO (08:19)
[2022-08-12] MEDS: ASPIRIN 81 MG ENTERIC TABLET PO (08:19)
[2022-08-12] MEDS: PREGABALIN (*CRX) 50 MG CAPSULE 100 MG PO ×2 (08:24→22:17)
[2022-08-12 08:30] LABS: Glucose Point of Care 207 mg/dl (65-105)
[2022-08-12 08:51] LABS: Thyroid Stimulating Hormone Reflex 0.884 uIU/mL (0.465-4.68)
[2022-08-12] MEDS: INSULIN ASPART (*BKC) 100 UNITS/ML SUB-Q ×2 (09:10→12:28)
[2022-08-12] MEDS: POTASSIUM CHLORIDE INJ 40 MEQ in SODIUM CHLORIDE 0.9% IV 500 ML 130 MEQ IVPB (09:32)
[2022-08-12 12:22] LABS: Glucose Point of Care 233 mg/dl (65-105)
--- NOTE | 2022-08-12 15:17 | P.PNIM_ITS ---
Progress Note: A&P Assessment and Plan (1) Acute on chronic heart failure with reduced ejection fraction and diastolic dysfunction: Code(s): I50.43 - Acute on chronic combined systolic (congestive) and diastolic (congestive) heart failure Status: Acute Assessment and Plan: Patient with history of CHF presents to the ED with orthopnea and states that with 3-4 pillows she still has difficulty breathing at night. Patient has been noncompliance with her Lasix due to not wanting to use the bathroom and night. Unable to diurese the patient due to her refusal of potassium on admission. * EKG: Left atrial enlargement, low-voltage QRS, QT prolongation; compared to EKG on 07/31/2022 criteria for inferior infarction no longer appreciated * Chest x-ray: Pulmonary edema, atelectasis and small bilateral pleural effusions; cardiomegaly * Echo EF 30-35%, severe hypokinesis of apical lateral, anterolateral, and anterior schaefer, grade 1 diastolic dysfunction. mild , mild MR * BNP 2560 * Kidney function stable * Potassium on arrival 2.8 * Since admission patient has agreed to 2 infusions of 40 mEq of potassium chloride 08/10/22 potassium 3.8. * Treated IV Lasix 40 mg IV b.i.d. on admisison. * Continue to monitor potassium * Telemetry order * Daily weights * Strict I&Os * Fall precautions * 08/11/22 patient doing much better today. Plan to deescalate Lasix to patient's home p.o. Lasix 40 mg. Discussed with patient the importance of taking her Lasix after discharge and how if she does not there is a possibility she could end up back here with another CHF exacerbation. * 08/12/22 K 3.7, she had episodes of nonsustained SVT which does not appear new after talking with the patient. She continues to refuse oral potassium except capsule preparations. Asked family to bring in home potassium supplement. Give 40 mEQ IVPB KCl. Weights fluctuant and appear inaccurate, UOP not measured, but she clinically feels better. Counseled on taking all medications as prescribed and adjusting diuretic time to prevent sleep alterations. (2) Hypokalemia: Code(s): E87.6 - Hypokalemia Status: Acute Assessment and Plan: Patient is compliant with potassium at home. Does have a history of chronic hypokalemia. * Patient refusing all forms of potassium on admission * Magnesium level of 1.8 * Patient received to doses of 40 mEq potassium IV on 08/10/2022. * Patient started on IV Lasix 40 mg b.i.d. * Potassium checks q.6 hours * Replace potassium as needed * 08/12/22 K 3.7, she had episodes of nonsustained SVT which does not appear new after talking with the patient. She continues to refuse oral potassium except capsule preparations. Asked family to bring in home potassium supplement. Give 40 mEQ IVPB KCl. Repeat BMP in am. (3) Chronic obstructive pulmonary disease: Qualifiers: COPD type: unspecified COPD Qualified Code(s): J44.9 - Chronic obstructive pulmonary disease, unspecified Code(s): J44.9 - Chronic obstructive pulmonary disease, unspecified Status: Acute Assessment and Plan: Chronic * No evidence of acute exacerbation. * Monitor (4) Type 2 diabetes mellitus: Qualifiers: Diabetes mellitus complication status: without complication Diabetes mellitus custodial insulin use: with custodial use Qualified Code(s): E11.9 - Type 2 diabetes mellitus without complications; Z79.4 - halfway (current) use of insulin Code(s): E11.9 - Type 2 diabetes mellitus without complications Status: Acute Assessment and Plan: Chronic * continue sliding scale insulin, Accu
--- NOTE | 2022-08-12 15:17 | PM.IMPN ---
Progress Note: A&P Assessment and Plan (1) Acute on chronic heart failure with reduced ejection fraction and diastolic dysfunction: Code(s): I50.43 - Acute on chronic combined systolic (congestive) and diastolic (congestive) heart failure Status: Acute Assessment and Plan: Patient with history of CHF presents to the ED with orthopnea and states that with 3-4 pillows she still has difficulty breathing at night. Patient has been noncompliance with her Lasix due to not wanting to use the bathroom and night. Unable to diurese the patient due to her refusal of potassium on admission. EKG: Left atrial enlargement, low-voltage QRS, QT prolongation; compared to EKG on 07/31/2022 criteria for inferior infarction no longer appreciated Chest x-ray: Pulmonary edema, atelectasis and small bilateral pleural effusions; cardiomegaly Echo EF 30-35%, severe hypokinesis of apical lateral, anterolateral, and anterior schaefer, grade 1 diastolic dysfunction. mild , mild MR BNP 2560 Kidney function stable Potassium on arrival 2.8 Since admission patient has agreed to 2 infusions of 40 mEq of potassium chloride 08/10/22 potassium 3.8. Treated IV Lasix 40 mg IV b.i.d. on admisison. Continue to monitor potassium Telemetry order Daily weights Strict I&Os Fall precautions 08/11/22 patient doing much better today. Plan to deescalate Lasix to patient's home p.o. Lasix 40 mg. Discussed with patient the importance of taking her Lasix after discharge and how if she does not there is a possibility she could end up back here with another CHF exacerbation. 08/12/22 K 3.7, she had episodes of nonsustained SVT which does not appear new after talking with the patient. She continues to refuse oral potassium except capsule preparations. Asked family to bring in home potassium supplement. Give 40 mEQ IVPB KCl. Weights fluctuant and appear inaccurate, UOP not measured, but she clinically feels better. Counseled on taking all medications as prescribed and adjusting diuretic time to prevent sleep alterations. (2) Hypokalemia: Code(s): E87.6 - Hypokalemia Status: Acute Assessment and Plan: Patient is compliant with potassium at home. Does have a history of chronic hypokalemia. Patient refusing all forms of potassium on admission Magnesium level of 1.8 Patient received to doses of 40 mEq potassium IV on 08/10/2022. Patient started on IV Lasix 40 mg b.i.d. Potassium checks q.6 hours Replace potassium as needed 08/12/22 K 3.7, she had episodes of nonsustained SVT which does not appear new after talking with the patient. She continues to refuse oral potassium except capsule preparations. Asked family to bring in home potassium supplement. Give 40 mEQ IVPB KCl. Repeat BMP in am. (3) Chronic obstructive pulmonary disease: Qualifiers: COPD type: unspecified COPD Qualified Code(s): J44.9 - Chronic obstructive pulmonary disease, unspecified Code(s): J44.9 - Chronic obstructive pulmonary disease, unspecified Status: Acute Assessment and Plan: Chronic No evidence of acute exacerbation. Monitor (4) Type 2 diabetes mellitus: Qualifiers: Diabetes mellitus complication status: without complication Diabetes mellitus manager intermediate insulin use: with custodial use Qualified Code(s): E11.9 - Type 2 diabetes mellitus without complications; Z79.4 - halfway (current) use of insulin Code(s): E11.9 - Type 2 diabetes mellitus without complications Status: Acute Assessment and Plan: Chronic continue sliding scale insulin, Accu-Cheks, and hypoglycemic protocol. Hemoglobin A1c on 07/31 was 8.8 Glucose >200. Does not appear lantus was resumed. Start lantus 10 units at HS which is home dose. (5) Coronary artery disease: Qualifiers: Associated angina: without angina Coronary Disease-Associated Artery/Lesion type: [place] artery [place] vs. transplanted heart: [place]
--- NOTE | 2022-08-12 17:14 | PHAR ---
HOME MEDICATION VERIFIED BY PHARMACY: POTASSIUM CHLORIDE 10MEQ ER CAPSULES TAKE 1 CAPSULE PO DAILY
[2022-08-12 17:24] LABS: Glucose Point of Care 160 mg/dl (65-105)
[2022-08-12] MEDS: INSULIN GLARGINE (*BKC) 100 UNITS/ML 10 UNITS SUB-Q (22:21)
[2022-08-13] VITALS (16 sets, daily range): BP systolic 85–112; BP diastolic 51–62; PULSE 75–93; RESP 16–18; TEMP 36.2–36.4; O2SAT 92–100
[2022-08-13] MEDS: SODIUM CHLORIDE 0.9% IV 250 ML IV CONT (00:12)
[2022-08-13 00:25] LABS: Glucose Point of Care 288 mg/dl (65-105)
[2022-08-13] MEDS: IBUPROFEN 400 MG TABLET 800 MG PO (03:25)
[2022-08-13] MEDS: ALPRAZolam (*CRX) 0.5 MG TABLET PO (05:32)
[2022-08-13 06:02] LABS: Anion Gap 7 mmol/L (8-16); Blood Urea Nitrogen 21 mg/dL (7-17); Calcium 8.1 mg/dL (8.4-10.2); Carbon Dioxide 31 mmol/L (22-30); Chloride 95 mmol/L (98-107); Estimated CRCL calculation 54 ml/min; Estimated Glomerular Filt Rate 57; Glucose 241 mg/dL (65-110); Potassium 3.5 mmol/L (3.4-5.0); Sodium 133 mmol/L (137-145)
[2022-08-13 08:17] LABS: Glucose Point of Care 235 mg/dl (65-105)
[2022-08-13] MEDS: INSULIN ASPART (*BKC) 100 UNITS/ML SUB-Q ×3 (08:58→22:49)
[2022-08-13] MEDS: ASPIRIN 81 MG ENTERIC TABLET PO (09:03)
[2022-08-13] MEDS: MAGNESIUM OXIDE 400 MG TABLET PO (09:03)
[2022-08-13] MEDS: EMPAGLIFLOZIN 10 MG TABLET PO (09:03)
[2022-08-13] MEDS: DULoxetine HCL 60 MG CAPSULE.DR PO ×2 (09:03→17:03)
[2022-08-13] MEDS: ENOXAPARIN 40 MG/0.4 ML SYRINGE SUB-Q (09:04)
[2022-08-13] MEDS: CLOPIDOGREL BISULFATE 75 MG TABLET PO (09:04)
[2022-08-13] MEDS: METOPROLOL SUCCINATE EXT REL 12.5 MG TABCR PO (10:47)
[2022-08-13 12:31] LABS: Glucose Point of Care 282 mg/dl (65-105)
--- NOTE | 2022-08-13 16:52 | P.PNIM_ITS ---
Progress Note: A&P Assessment and Plan (1) Acute on chronic heart failure with reduced ejection fraction and diastolic dysfunction: Code(s): I50.43 - Acute on chronic combined systolic (congestive) and diastolic (congestive) heart failure Status: Acute Assessment and Plan: Patient with history of CHF presents to the ED with orthopnea and states that with 3-4 pillows she still has difficulty breathing at night. Patient has been noncompliance with her Lasix due to not wanting to use the bathroom and night. Unable to diurese the patient due to her refusal of potassium on admission. * EKG: Left atrial enlargement, low-voltage QRS, QT prolongation; compared to EKG on 07/31/2022 criteria for inferior infarction no longer appreciated * Chest x-ray: Pulmonary edema, atelectasis and small bilateral pleural effusions; cardiomegaly * Echo EF 30-35%, severe hypokinesis of apical lateral, anterolateral, and anterior schaefer, grade 1 diastolic dysfunction. mild , mild MR * BNP 2560 * Kidney function stable * Potassium on arrival 2.8 * Since admission patient has agreed to 2 infusions of 40 mEq of potassium chloride 08/10/22 potassium 3.8. * Treated IV Lasix 40 mg IV b.i.d. on admisison. * Continue to monitor potassium * Telemetry order * Daily weights * Strict I&Os * Fall precautions * 08/11/22 patient doing much better today. Plan to deescalate Lasix to patient's home p.o. Lasix 40 mg. Discussed with patient the importance of taking her Lasix after discharge and how if she does not there is a possibility she could end up back here with another CHF exacerbation. * 08/12/22 K 3.7, she had episodes of nonsustained SVT which does not appear new after talking with the patient. She continues to refuse oral potassium except capsule preparations. Asked family to bring in home potassium supplement. Give 40 mEQ IVPB KCl. Weights fluctuant and appear inaccurate, UOP not measured, but she clinically feels better. Counseled on taking all medications as prescribed and adjusting diuretic time to prevent sleep alterations. * 08/13/22 hypotension overnight and SBP drops to 85 with position changes with associated dizziness. Hold lasix. Give slow 250 cc bolus x1. repeat orthostatics in am. (2) Hypokalemia: Code(s): E87.6 - Hypokalemia Status: Acute Assessment and Plan: Patient is compliant with potassium at home. Does have a history of chronic hypokalemia. * Patient refusing all forms of potassium on admission * Magnesium level of 1.8 * Patient received to doses of 40 mEq potassium IV on 08/10/2022. * Patient started on IV Lasix 40 mg b.i.d. * Potassium checks q.6 hours * Replace potassium as needed * 08/12/22 K 3.7, she had episodes of nonsustained SVT which does not appear new after talking with the patient. She continues to refuse oral potassium except capsule preparations. Asked family to bring in home potassium supplement. Give 40 mEQ IVPB KCl. Repeat BMP in am. * 08/13/22 Stable. K 3.5 (3) Chronic obstructive pulmonary disease: Qualifiers: COPD type: unspecified COPD Qualified Code(s): J44.9 - Chronic obstructive pulmonary disease, unspecified Code(s): J44.9 - Chronic obstructive pulmonary disease, unspecified Status: Acute Assessment and Plan: Chronic * No evidence of acute exacerbation. * Monitor (4) Type 2 diabetes mellitus: Qualifiers: Diabetes mellitus local [employer] driver insulin use: with fci use Diabetes mellitus complication status: without complication Qualified Code(s): E11.9 - Type 2 diabetes mellitus without complications; Z79.4 - [facility] ([facility]
--- NOTE | 2022-08-13 16:52 | PM.IMPN ---
Progress Note: A&P Assessment and Plan (1) Acute on chronic heart failure with reduced ejection fraction and diastolic dysfunction: Code(s): I50.43 - Acute on chronic combined systolic (congestive) and diastolic (congestive) heart failure Status: Acute Assessment and Plan: Patient with history of CHF presents to the ED with orthopnea and states that with 3-4 pillows she still has difficulty breathing at night. Patient has been noncompliance with her Lasix due to not wanting to use the bathroom and night. Unable to diurese the patient due to her refusal of potassium on admission. EKG: Left atrial enlargement, low-voltage QRS, QT prolongation; compared to EKG on 07/31/2022 criteria for inferior infarction no longer appreciated Chest x-ray: Pulmonary edema, atelectasis and small bilateral pleural effusions; cardiomegaly Echo EF 30-35%, severe hypokinesis of apical lateral, anterolateral, and anterior schaefer, grade 1 diastolic dysfunction. mild , mild MR BNP 2560 Kidney function stable Potassium on arrival 2.8 Since admission patient has agreed to 2 infusions of 40 mEq of potassium chloride 08/10/22 potassium 3.8. Treated IV Lasix 40 mg IV b.i.d. on admisison. Continue to monitor potassium Telemetry order Daily weights Strict I&Os Fall precautions 08/11/22 patient doing much better today. Plan to deescalate Lasix to patient's home p.o. Lasix 40 mg. Discussed with patient the importance of taking her Lasix after discharge and how if she does not there is a possibility she could end up back here with another CHF exacerbation. 08/12/22 K 3.7, she had episodes of nonsustained SVT which does not appear new after talking with the patient. She continues to refuse oral potassium except capsule preparations. Asked family to bring in home potassium supplement. Give 40 mEQ IVPB KCl. Weights fluctuant and appear inaccurate, UOP not measured, but she clinically feels better. Counseled on taking all medications as prescribed and adjusting diuretic time to prevent sleep alterations. 08/13/22 hypotension overnight and SBP drops to 85 with position changes with associated dizziness. Hold lasix. Give slow 250 cc bolus x1. repeat orthostatics in am. (2) Hypokalemia: Code(s): E87.6 - Hypokalemia Status: Acute Assessment and Plan: Patient is compliant with potassium at home. Does have a history of chronic hypokalemia. Patient refusing all forms of potassium on admission Magnesium level of 1.8 Patient received to doses of 40 mEq potassium IV on 08/10/2022. Patient started on IV Lasix 40 mg b.i.d. Potassium checks q.6 hours Replace potassium as needed 08/12/22 K 3.7, she had episodes of nonsustained SVT which does not appear new after talking with the patient. She continues to refuse oral potassium except capsule preparations. Asked family to bring in home potassium supplement. Give 40 mEQ IVPB KCl. Repeat BMP in am. 08/13/22 Stable. K 3.5 (3) Chronic obstructive pulmonary disease: Qualifiers: COPD type: unspecified COPD Qualified Code(s): J44.9 - Chronic obstructive pulmonary disease, unspecified Code(s): J44.9 - Chronic obstructive pulmonary disease, unspecified Status: Acute Assessment and Plan: Chronic No evidence of acute exacerbation. Monitor (4) Type 2 diabetes mellitus: Qualifiers: Diabetes mellitus termination clerk insulin use: with termination clerk use Diabetes mellitus complication status: without complication Qualified Code(s): E11.9 - Type 2 diabetes mellitus without complications; Z79.4 - exterminator helper (current) use of insulin Code(s): E11.9 - Type 2 diabetes mellitus without complications Status: Acute Assessment and Plan: Chronic continue sliding scale insulin, Accu-Cheks, and hypoglycemic protocol. Hemoglobin A1c on 07/31 was 8.8 Glucose >200. Does not appear lantus was resumed. Started lantus 10 units at HS which is home dose on 07/17
[2022-08-13] MEDS: SODIUM CHLORIDE 0.9% IV 500 ML 50 ML IV CONT (17:02)
[2022-08-13 17:19] LABS: Glucose Point of Care 130 mg/dl (65-105)
[2022-08-13 21:55] LABS: Glucose Point of Care 286 mg/dl (65-105)
[2022-08-13] MEDS: PREGABALIN (*CRX) 50 MG CAPSULE 100 MG PO (21:55)
[2022-08-13] MEDS: INSULIN GLARGINE (*BKC) 100 UNITS/ML 13 UNITS SUB-Q (21:55)
[2022-08-14] VITALS (9 sets, daily range): BP systolic 88–101; BP diastolic 50–58; PULSE 78–97; RESP 18; TEMP 36.4; O2SAT 95–96
[2022-08-14] MEDS: MIDODRINE HCL 2.5 MG TABLET 5 MG PO (05:52)
[2022-08-14] MEDS: MIDODRINE HCL 10 MG TABLET PO (05:52)
[2022-08-14 08:53] LABS: Glucose Point of Care 140 mg/dl (65-105)
[2022-08-14] MEDS: ENOXAPARIN 40 MG/0.4 ML SYRINGE SUB-Q (09:47)
[2022-08-14] MEDS: METOPROLOL SUCCINATE EXT REL 12.5 MG TABCR PO (09:48)
[2022-08-14] MEDS: CLOPIDOGREL BISULFATE 75 MG TABLET PO (09:50)
[2022-08-14] MEDS: EMPAGLIFLOZIN 10 MG TABLET PO (09:51)
[2022-08-14] MEDS: ASPIRIN 81 MG ENTERIC TABLET PO (09:51)
[2022-08-14] MEDS: DULoxetine HCL 60 MG CAPSULE.DR PO (09:51)
[2022-08-14] MEDS: PREGABALIN (*CRX) 50 MG CAPSULE 100 MG PO (09:51)
[2022-08-14] MEDS: MAGNESIUM OXIDE 400 MG TABLET PO (09:51)
[2022-08-14 11:58] LABS: Glucose Point of Care 213 mg/dl (65-105)
[2022-08-14] MEDS: INSULIN ASPART (*BKC) 100 UNITS/ML SUB-Q (12:12)
--- NOTE | 2022-08-14 14:06 | PM.DS ---
DS: Admitting Diagnosis Discharge Date 08/14/2022 1407 Admitting Diagnosis Acute on chronic heart failure with reduced ejection fraction and diastolic dysfunction Hypokalemia Chronic obstructive pulmonary disease Type 2 diabetes mellitus Coronary artery disease Suspected sleep apnea DS: Discharge Diagnosis Discharge Diagnosis (1) Acute on chronic heart failure with reduced ejection fraction and diastolic dysfunction: Code(s): I50.43 - Acute on chronic combined systolic (congestive) and diastolic (congestive) heart failure Status: Acute Assessment and Plan: Patient with history of CHF presented to the ED with orthopnea with 3-4 pillows. Patient has been noncompliance with her Lasix due to not wanting to use the bathroom at night. Unable to diurese the patient due to her refusal of potassium on admission. EKG: Left atrial enlargement, low-voltage QRS, QT prolongation; compared to EKG on 07/31/2022 criteria for inferior infarction no longer appreciated Chest x-ray: Pulmonary edema, atelectasis and small bilateral pleural effusions; cardiomegaly Echo EF 30-35%, severe hypokinesis of apical lateral, anterolateral, and anterior schaefer, grade 1 diastolic dysfunction. mild , mild MR BNP 2560 Kidney function stable Potassium on arrival 2.8. patient agreeable to 2 infusions of 40 mEq of potassium chloride. Patient refusing potassium powder and tablets. Treated IV Lasix 40 mg IV b.i.d. on admission. 08/11/22 deescalated Lasix to patient's home p.o. Lasix 40 mg b.i.d. Discussed with patient the importance of taking her Lasix after discharge and how if she does not there is a possibility she could end up back here with another CHF exacerbation. 08/12/22 K 3.7, she had episodes of nonsustained SVT which does not appear new after talking with the patient. She continues to refuse oral potassium except capsule preparations. Asked family to bring in home potassium supplement. Given 40 mEQ IVPB KCl. Weights fluctuant and appear inaccurate, UOP not measured, but she clinically feels better. Counseled on taking all medications as prescribed and adjusting diuretic time to prevent sleep alterations. 08/13/22 hypotension overnight and SBP dropped to 85 with position changes with associated dizziness. Held lasix. Give slow 250 cc bolus x1. orthostatics negative and lasix held. Resumed at lowered dose. Metoprolol XL dose lowered d/t soft BP (2) Hypokalemia: Code(s): E87.6 - Hypokalemia Status: Acute Assessment and Plan: Patient is compliant with potassium at home. Does have a history of chronic hypokalemia. Patient refusing all forms of potassium on admission Magnesium level of 1.8 Patient received to doses of 40 mEq potassium IV on 08/10/2022. Patient started on IV Lasix 40 mg b.i.d. Potassium checks q.6 hours Replace potassium as needed 08/12/22 K 3.7, she had episodes of nonsustained SVT which does not appear new after talking with the patient. She continues to refuse oral potassium except capsule preparations. Asked family to bring in home potassium supplement. Give 40 mEQ IVPB KCl. Repeat BMP in am. 08/13/22 Stable. K 3.5. Continued potassium chloride home gel caps. (3) Chronic obstructive pulmonary disease: Qualifiers: COPD type: unspecified COPD Qualified Code(s): J44.9 - Chronic obstructive pulmonary disease, unspecified Code(s): J44.9 - Chronic obstructive pulmonary disease, unspecified Status: Acute Assessment and Plan: Chronic No evidence of acute exacerbation. Monitor (4) Type 2 diabetes mellitus: Qualifiers: Diabetes mellitus complication status: without complication Diabetes mellitus assisted insulin use: with assisted use Qualified Code(s): E11.9 - Type 2 diabetes mellitus without complications; Z79.4 - buttermaker (current) use of insulin Code(s): E11.9 - Type 2 diabetes mellitus without complications Status: Acute A
== END 2022-08-14 15:33 | disposition home or self-care (01) | DRG 292 ==
LOC: ANHED 12:45 → ANH2MED 14:28
PROVIDERS: Internal Medicine Critical Care Medicine; Physician Assistant; Admitting Provider Chiropractor; Emergency Provider Emergency Medicine; PCP Emergency Medicine; Visit Provider Nurse Practitioner Family
DX: I50.43 Acute on chronic combined systolic (congestive) and diastolic (congestive) heart failure (principal); I47.1 Supraventricular tachycardia; E87.6 Hypokalemia; I25.10 Atherosclerotic heart disease of native coronary artery without angina pectoris; G47.30 Sleep apnea, unspecified; E11.9 Type 2 diabetes mellitus without complications; J44.9 Chronic obstructive pulmonary disease, unspecified; I48.91 Unspecified atrial fibrillation; Z20.822 Contact with and (suspected) exposure to COVID-19; I73.9 Peripheral vascular disease, unspecified; E11.610 Type 2 diabetes mellitus with diabetic neuropathic arthropathy; E11.42 Type 2 diabetes mellitus with diabetic polyneuropathy; F32.A Depression, unspecified; F41.9 Anxiety disorder, unspecified; Z79.4 Long term (current) use of insulin; Z90.49 Acquired absence of other specified parts of digestive tract; Z90.710 Acquired absence of both cervix and uterus; Z89.511 Acquired absence of right leg below knee; Z95.5 Presence of coronary angioplasty implant and graft; Z91.14 Patient's other noncompliance with medication regimen
CPT/HCPCS: 36415; 71046; 80048; 80053; 82948; 83735; 83880; 84132; 84443; 84484; 85025; 85027; 85610; 85730; 87636; 93005; 94640; 96374; 99285; A9270; C8929; G0378; J1650; J1815; J1940; J3480; J7040; J7050; Q9957

== ENCOUNTER 2022-08-22 12:03 | Emergency (ER) | payer MEDICARE, MEDICAID, SELFPAY ==
[2022-08-22] VITALS (16 sets, daily range): BP systolic 110–114; BP diastolic 54–75; PULSE 96–104; RESP 12–36; TEMP 36.4; O2SAT 93–100
--- NOTE | ~2022-08-22 | XR_ITS ---
XR chest 2V 08/22/2022 11:32 Indication: Shortness of breath. Rapid heart rate. Procedure: AP and lateral views of the chest Comparison: 08/09/2022 Findings: Persistent bibasilar airspace disease, compatible with pneumonia. Consider aspiration. Smal l pleural effusions. No pneumothorax. There are vertebroplasty changes in the upper lumbar spine with multiple lumbar compression fractures. Impression: 1: Stable bibasilar airspace disease, consistent with pneumonia, consider aspiration. 2: Small pleural effusions. Reviewed, dictated and finalized at location A. UCT MARKETING ENGINEER Impression: 1: Stable bibasilar airspace disease, consistent with pneumonia, consider aspir ation. 2: Small pleural effusions.
--- NOTE | 2022-08-22 10:43 | ECG_ITS ---
Measurements Intervals [place] Rate: 102 P: 69 IA: 140 QRS: 3 QRSD: 100 T: 88 QT: 366 QTc: 477 Interpretive Statements SINUS TACHYCARDIA VENTRICULAR PREMATURE COMPLEX BORDERLINE ST-T WAVE ABNORMALITY- ANTEROLAT/HIGH LAT LEADS BORDERLINE ECG COMPARED TO ECG 08/09/2022 11:06:00 SINUS TACHYCARDIA NOW PRESENT Electronically Signed On 08-22-2022 11:32:42 LEAD SHAREPOINT DEVELOPER by Mike Bernardo D.O.
[2022-08-22 11:00] LABS: Basophils Absolute Auto 0.1 K/mm3 (0.0-0.1); Basophils Percent Auto 0.8 % (0.2-1.2); Eosinophils Absolute Auto 0.1 K/mm3 (0-0.3); Hematocrit 39.7 % (37.0-47.0); Hemoglobin 12.2 g/dL (12.0-15.0); Immature Granulocyte Absolute 0.04 K/mm3 (0.00-0.031); Immature Granulocyte Percent A 0.4 % (0-0.5); Lymphocytes Absolute Auto 2.02 K/mm3 (0.9-3.2); Lymphocytes Percent Auto 20.1 % (18.3-44.2); Mean Corpuscular HGB Conc 30.7 g/dl (32-36); Mean Corpuscular Hemoglobin 25.4 pg (26-34); Mean Corpuscular Volume 82.7 fl (80-100); Monocytes Absolute Auto 0.5 K/mm3 (0.1-0.6); Monocytes Percent Auto 5.1 % (2.6-8.5); Neutrophils Absolute Auto 7.3 K/mm3 (1.3-6.7); Neutrophils Percent Auto 72.6 % (45.5-73.1); Platelet Count Result 206 k/mm3 (150-375); Red Cell Distribution Width 13.9 % (11.5-14.5); White Blood Count 10.1 K/mm3 (4.5-10.0)
[2022-08-22 11:11] LABS: INR 0.9; Partial Thromboplastin Time 25.3 SECONDS (22.3-36.8); Prothrombin Time 11.9 Seconds (11.1-14.7)
[2022-08-22 11:18] LABS: Alanine Aminotransferase 16 U/L (6-35); Albumin Level 4.1 g/dL (3.5-5.1); Alkaline Phosphatase 104 U/L (38-126); Anion Gap 12 mmol/L (8-16); Aspartate Amino Transferase 19 U/L (14-36); Bilirubin,Total 0.3 mg/dL (0.2-1.3); Blood Urea Nitrogen 17 mg/dL (7-17); Calcium 8.4 mg/dL (8.4-10.2); Carbon Dioxide 18 mmol/L (22-30); Chloride 107 mmol/L (98-107); Estimated CRCL calculation 99 ml/min; Estimated Glomerular Filt Rate > 60; Glucose 268 mg/dL (65-110); Potassium 3.5 mmol/L (3.4-5.0); Sodium 137 mmol/L (137-145)
[2022-08-22 11:30] LABS: NT Pro B Type Natriuretic Pept 1200 pg/mL (5-100); Troponin I 0.034 ng/mL (0.000-0.034)
--- NOTE | 2022-08-22 12:54 | ED.SOB ---
HPI - SOB/Dyspnea General Chief Complaint: Shortness of Breath/Dyspnea Stated Complaint: same thing as last year , SOB per EMS History of Present Illness HPI Narrative: Patient is a 57-year-old female with a history of CHF, COPD, CAD, diabetes, hypertension, hyperlipidemia presenting with shortness of breath. Patient states that she woke up feeling short of breath like she often does that requires her to come to the hospital. States that she had to prop her self up to sleep comfortably. States that she feels like she needs a breathing treatment. States she has been compliant with her Lasix and potassium. She denies fevers or chills, headache, chest pain, abdominal pain, nausea or vomiting, diarrhea, leg swelling, dysuria. Related Data Home Medications Medication Instructions Recorded Confirmed insulin lispro 100 unit/mL 10 unit subcut TIDWM 03/30/22 08/09/22 subcutaneous solution (Admelog U-100 Insulin lispro) semaglutide 0.25 mg or 0.5 mg (2 1 mg subcut WEEKLY 03/30/22 08/09/22 mg/1.5 mL) subcutaneous pen injector (Ozempic) duloxetine 30 mg capsule,delayed 60 mg PO BID 06/15/22 08/09/22 release (Cymbalta) evolocumab 140 mg/mL subcutaneous 140 mg subcut [id number] 06/15/22 08/09/22 pen injector (Repatha SureClick) Allergies Allergy/AdvReac Type Severity Reaction Status Date / Time propofol Allergy Agitated Verified 08/22/22 12:05 Rberxyg-PJP-NcJ Reductase AdvReac Intermediate MYALGIAS Verified 08/22/22 12:05 Inhibitor Review of Systems Review of Systems: All systems reviewed & are unremarkable except as noted in HPI and below PMFSH Past Medical History Medical History Anxiety Charcot's joint of foot in type 2 diabetes mellitus Of the right foot Chickenpox Chronic obstructive pulmonary disease Coronary artery disease Left anterior descending stent 01/2019. Usual adobe ball mixer is Dr. 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 Peripheral vascular disease due to secondary diabetes Suspected sleep apnea AHI 35 on apnea link on 06/16/2022. Surgical History Surgical History History of appendectomy History of section History of hysterectomy Due to cervical changes. History of tonsillectomy and adenoidectomy Hx of BKA Right 11/19/20 at [facility] Status post cholecystectomy Stented coronary artery X1 Family History Family History Sibling Diabetes mellitus Mother Heart failure Cardiomegaly Arthritis Atrial fibrillation Family history of osteoporosis Family history of Alzheimer's disease Hypertension Cardiomyopathy Acute myocardial infarction History of heart artery stent Congestive heart failure Daughter Anxiety Father Esophagus cancer Cancer of spinal column Social History Social History Social History: The patient is . The patient had 4 children and 1 of her daughters is now. She is disabled. She is a former smoker. She denies any alcohol marijuana or illicit drugs. Surrogate medical decision maker: Jass Arciniega, son. Code status: Full code. Smoking packs per day: 1.5 Smoking cigarettes per day: 30.0 Years smoked: 20 Smoking pack-years: 30.00 Smoking status: Former smoker Tobacco type: cigarettes Additional smoking assessment co
[2022-08-22] MEDS: ALBUTEROL SULFATE NEB 2.5 MG/3 ML INH 5 MG INHALATION (13:52)
[2022-08-22] MEDS: IPRATROPIUM BR 0.02% INH SOLN 0.5 MG/2.5 ML VIAL INHALATION (13:52)
[2022-08-22] MEDS: ALBUTEROL SULFATE (*SP) AEROSOL 1 PUFF 2 PUFF INHALATION (16:20)
== END 2022-08-22 19:33 | disposition home or self-care (01) ==
PROVIDERS: General Practice; Emergency Provider Emergency Medicine; PCP Emergency Medicine
DX: J44.1 Chronic obstructive pulmonary disease with (acute) exacerbation (principal); I50.9 Heart failure, unspecified; I25.10 Atherosclerotic heart disease of native coronary artery without angina pectoris; E78.00 Pure hypercholesterolemia, unspecified; E11.42 Type 2 diabetes mellitus with diabetic polyneuropathy; E11.51 Type 2 diabetes mellitus with diabetic peripheral angiopathy without gangrene; I73.9 Peripheral vascular disease, unspecified; Z90.710 Acquired absence of both cervix and uterus; Z89.511 Acquired absence of right leg below knee; Z95.5 Presence of coronary angioplasty implant and graft; Z87.891 Personal history of nicotine dependence; Z79.4 Long term (current) use of insulin; Z79.84 Long term (current) use of oral hypoglycemic drugs; Z79.82 Long term (current) use of aspirin
CPT/HCPCS: 36415; 71046; 80053; 83880; 84484; 85025; 85610; 85730; 93005; 94640; 99284; A9270

== ENCOUNTER 2022-08-25 11:32 | Inpatient (IN) | payer MEDICARE, MEDICAID, SELFPAY ==
[2022-08-25] VITALS (13 sets, daily range): BP systolic 92–113; BP diastolic 45–61; PULSE 100–132; RESP 15–30; TEMP 36.4–36.5; O2SAT 94–100; BMI 26.6
--- NOTE | ~2022-08-25 | XR_ITS ---
EXAMINATION: XR chest 1V portable INDICATION: Cough TECHNIQUE: Portable AP chest at 1207 hours COMPARISON: 08/22/2022 FINDINGS: Cardiomegaly is noted. There is a mild diffuse interstitial pattern without significant arnol nge. There are small pleural effusions. Bibasilar airspace opacities are unchanged. No pneumothorax i s identified. A cardiac monitoring device projects over the left mid chest. There is an old fracture of the left humeral head. IMPRESSION: 1. Cardiomegaly with mild pulmonary edema. 2. Small pleural effusions. 3. Minimal bibasilar airspace opacity, likely atelectasis. Reviewed, dictated and finalized at location L. NCIAL SERVICES PROFESSIONAL
--- NOTE | 2022-08-25 12:06 | ECG_ITS ---
Measurements Intervals [place] Rate: 111 P: 82 [place]: 148 QRS: -6 QRSD: 104 T: 97 QT: 351 QTc: 477 Interpretive Statements SINUS TACHYCARDIA POSSIBLE LEFT ATRIAL ENLARGEMENT BORDERLINE ST-T WAVE ABNORMALITY- DIFFUSE LEADS BASELINE ARTIFACT- I, III, AVR, AVL, AVF, V6 ABNORMAL ECG COMPARED TO ECG 08/22/2022 10:48:30 NO SIGNIFICANT CHANGES Electronically Signed On 08-25-2022 12:59:51 CHIEF RELAY TESTER by Mike Bernardo D.O.
[2022-08-25 12:18] LABS: Basophils Absolute Auto 0.1 K/mm3 (0.0-0.1); Basophils Percent Auto 0.5 % (0.2-1.2); Eosinophils Absolute Auto 0.1 K/mm3 (0-0.3); Eosinophils Percent Auto 0.5 % (0-4.4); Hematocrit 40.6 % (37.0-47.0); Hemoglobin 12.3 g/dL (12.0-15.0); Immature Granulocyte Absolute 0.15 K/mm3 (0.00-0.031); Immature Granulocyte Percent A 0.8 % (0-0.5); Lymphocytes Absolute Auto 1.92 K/mm3 (0.9-3.2); Lymphocytes Percent Auto 10.2 % (18.3-44.2); Mean Corpuscular HGB Conc 30.3 g/dl (32-36); Mean Corpuscular Hemoglobin 25.4 pg (26-34); Mean Corpuscular Volume 83.7 fl (80-100); Mean Platelet Volume 12.2 fl (7.4-10.4); Monocytes Absolute Auto 0.8 K/mm3 (0.1-0.6); Monocytes Percent Auto 4.1 % (2.6-8.5); Neutrophils Absolute Auto 15.8 K/mm3 (1.3-6.7); Neutrophils Percent Auto 83.9 % (45.5-73.1); Platelet Count Result 224 k/mm3 (150-375); Red Blood Count 4.85 M/mm3 (4.2-5.4); Red Cell Distribution Width 14.2 % (11.5-14.5); White Blood Count 18.9 K/mm3 (4.5-10.0)
[2022-08-25 12:29] LABS: Partial Thromboplastin Time 23.7 SECONDS (22.3-36.8); Prothrombin Time 13.1 Seconds (11.1-14.7)
--- NOTE | 2022-08-25 12:32 | ED.SOB ---
HPI - SOB/Dyspnea General Chief Complaint: Shortness of Breath/Dyspnea Stated Complaint: sob Time Seen by Provider: 08/25/22 12:02 History of Present Illness HPI Narrative: Patient is a 57-year-old female with a history of diabetes, COPD, CAD, hyperlipidemia presenting with shortness of breath. Patient states that she awoke this morning with dyspnea. States that she used her inhaler 7 times without relief. She called EMS who gave her a breathing treatment which did improve her symptoms. EMS noted that she was saturating in the low 90s on room air so she was placed on 3 L nasal cannula. Patient otherwise complains of chest tightness. States that it feels similar to her prior episodes of COPD and CHF exacerbation. States she has been compliant with her Lasix until this morning. States she did not take it because she called EMS. She otherwise denies fevers or chills, headache, cough, abdominal pain, nausea or vomiting, diarrhea, leg swelling. Related Data Home Medications Medication Instructions Recorded Confirmed insulin lispro 100 unit/mL 10 unit subcut TIDWM 03/30/22 08/25/22 subcutaneous solution (Admelog U-100 Insulin lispro) semaglutide 0.25 mg or 0.5 mg (2 1 mg subcut WEEKLY 03/30/22 08/25/22 mg/1.5 mL) subcutaneous pen injector (Ozempic) duloxetine 30 mg capsule,delayed 60 mg PO Q12H 06/15/22 08/25/22 release (Cymbalta) evolocumab 140 mg/mL subcutaneous 140 mg subcut [id number] 06/15/22 08/25/22 pen injector (Repatha SureClick) insulin glargine 100 unit/mL (3 10 unit subcut Q12H 08/25/22 08/25/22 mL) subcutaneous pen (Basaglar KwikPen U-100 Insulin) Allergies Allergy/AdvReac Type Severity Reaction Status Date / Time propofol Allergy Agitated Verified 08/25/22 12:09 Ytkvdro-ANO-WpL Reductase AdvReac Intermediate MYALGIAS Verified 08/25/22 12:09 Inhibitor Review of Systems Review of Systems: All systems reviewed & are unremarkable except as noted in HPI and below PMFSH Past Medical History Medical History Anxiety Charcot's joint of foot in type 2 diabetes mellitus Of the right foot Chronic obstructive pulmonary disease Coronary artery disease Left anterior descending stent 01/2019. Usual infectious disease technician is Dr. 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 Peripheral vascular disease due to secondary diabetes Suspected sleep apnea AHI 35 on apnea link on 06/16/2022. Surgical History Surgical History History of appendectomy History of section History of hysterectomy Due to cervical changes. History of tonsillectomy and adenoidectomy Hx of BKA Right 11/19/20 at [facility] Status post cholecystectomy Stented coronary artery X1 Family History Family History Sibling Diabetes mellitus Mother Heart failure Cardiomegaly Arthritis Atrial fibrillation Family history of osteoporosis Family history of Alzheimer's disease Hypertension Cardiomyopathy Acute myocardial infarction History of heart artery stent Congestive heart failure Daughter Anxiety Father Esophagus cancer Cancer of spinal column Social History Social History Social History: The patient is . The patient had 4 children and 1 of her daughters is now. She is disabled. She is a former smoker. She denies any alcohol marijuana or illicit drugs. Surrogate medical decision maker: Jass Arciniega, son. [place]
[2022-08-25 12:34] LABS: Lactic Acid Reflex 3.4 mmol/L (0.7-2.0)
[2022-08-25 12:35] LABS: Alanine Aminotransferase 18 U/L (6-35); Albumin Level 3.9 g/dL (3.5-5.1); Alkaline Phosphatase 99 U/L (38-126); Anion Gap 12 mmol/L (8-16); Aspartate Amino Transferase 24 U/L (14-36); Bilirubin,Total 0.5 mg/dL (0.2-1.3); Blood Urea Nitrogen 15 mg/dL (7-17); Calcium 8.3 mg/dL (8.4-10.2); Carbon Dioxide 17 mmol/L (22-30); Chloride 108 mmol/L (98-107); Estimated Glomerular Filt Rate > 60; Glucose 364 mg/dL (65-110); Potassium 3.5 mmol/L (3.4-5.0); Sodium 137 mmol/L (137-145)
[2022-08-25] MEDS: SODIUM CHLORIDE 0.9% IV 500 ML 999 ML IV CONT (12:37)
[2022-08-25] MEDS: ALBUTEROL SULFATE NEB 2.5 MG/3 ML INH 5 MG INHALATION (12:45)
[2022-08-25] MEDS: IPRATROPIUM BR 0.02% INH SOLN 0.5 MG/2.5 ML VIAL INHALATION ×2 (12:46→20:47)
[2022-08-25 12:54] LABS: NT Pro B Type Natriuretic Pept 1920 pg/mL (5-100); Troponin I 0.221 ng/mL (0.000-0.034)
[2022-08-25 12:57] LABS: Influenza A QL RT-PCR Negative (Negative); Influenza B QL RT-PCR Negative (Negative); SARS-CoV-2 RNA PCR Negative
[2022-08-25 15:16] LABS: Reflex Lactic Acid Yes or No Add Lactic
[2022-08-25 15:44] LABS: Lactic Acid 2.9 mmol/L (0.7-2.0)
--- NOTE | 2022-08-25 17:13 | ADMGEN ---
This patient, Tiff Vaughn, was admitted to IMU Room 231-01. Patient/family oriented to hospital policies and general routines including ID bracelet, bed and alarms, visiting hours, pain management, procedures, bathroom and other care routines, personal items, smoking policy, room service/diet, and visiting hours. Information on how to activate the Rapid Response Team has been discussed. Patient/Family are encouraged to report perceived risks to care and to ask questions if they do not understand what they are told or what they should do.
[2022-08-25 17:30] LABS: Glucose Point of Care 281 mg/dl (65-105)
--- NOTE | 2022-08-25 19:30 | PM.IMHP ---
H&P: HPI History of Present Illness Date/Time: 08/25/22 19:30 Chief Complaint: Shortness of breath. Narrative: This is a 57-year-old female with heart failure with reduced ejection fraction most recent EF of 30 to 35%, COPD, coronary artery disease, insulin dependent diabetes, hyperlipidemia, and peripheral vascular disease who presented to the ED via EMS from home for evaluation of shortness of breath. She is well known to the hospitalist service and has been admitted several times in the last couple of months. Towards the beginning of June she had a stress test showing a large, severe nonreversible perfusion defect and a subsequent cardiac catheterization revealed diffuse disease. No intervention was undertaken as it was felt she would benefit from being seen at a tertiary care facility for high risk PCI. At that time she was prescribed aspirin, clopidogrel, empagliflozin, metoprolol, and Entresto (which she was unable to tolerate due to hypotension). She was seen in the ED couple of days ago with shortness of breath and at that time it was thought that her shortness of breath was likely related to COPD exacerbation. She was given prescriptions for nebulizer treatments though she reports that she has never actually been prescribed a nebulizer. In any event she states that she felt better when she got home that evening however she woke up the following day once again short of breath. Since that time she has had difficulties lying flat and this morning she woke up gasping for air even when propped up on multiple pillows. She received a nebulizer in route to the emergency department which she reports helped quite a bit though she is starting to feel some tightness in her chest again with feelings as though she cannot take in a deep breath. Additionally she has had no appetite to speak of though she has not had nausea, vomiting, or diarrhea. She has not had fever, chills, or sweats and she denies cold and flu symptoms. She has not noticed any lower extremity edema. She does however endorse a pressure sore on the left 1st toe and she is concerned that it may be infected though she is not having any pain there. She also endorses dysuria since yesterday. She was afebrile on arrival to the emergency department. Labs were significant for WBC of 18.9, lactic acid 3.4, troponin 0.221, and proBNP 1920. She was negative for influenza and COVID. Chest x-ray showed cardiomegaly with small pulmonary edema and small pleural effusions. She is being admitted in this setting for further treatment and observation. Review of Systems Review of Systems: Twelve systems were reviewed and are negative except for as per HPI. [facility] Past Medical History Medical History (Updated 08/25/22 @ 22:15 by Mireya Matson PA-C) Anxiety Charcot's joint of foot in type 2 diabetes mellitus Of the right foot Chronic obstructive pulmonary disease Coronary artery disease Left anterior descending stent 01/2019. Usual casting associate is Dr. 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 Peripheral vascular disease due to secondary diabetes Suspected sleep apnea AHI 35 on apnea link on 06/16/2022. Surgical History Surgical History History of appendectomy History of section History of hysterectomy Due to cervical changes. History of tonsillectomy and adenoidectomy Hx of BKA Right 11/19/20 at [facility] Status post cholecystectomy Stented coronary artery X1 Family History Family History
[2022-08-25 20:21] LABS: Glucose Point of Care 277 mg/dl (65-105)
[2022-08-25] MEDS: ALBUTEROL SULFATE NEB 2.5 MG/3 ML INH INHALATION (20:47)
[2022-08-25 23:11] LABS: D Dimer 2.37 ug/mL (<0.48)
[2022-08-25] MEDS: DULoxetine HCL 60 MG CAPSULE.DR PO (23:25)
[2022-08-25] MEDS: METOPROLOL SUCCINATE EXT REL 12.5 MG TABCR PO (23:25)
[2022-08-25] MEDS: FUROSEMIDE INJ 40 MG/4 ML VIAL 20 MG IV PUSH (23:25)
[2022-08-25] MEDS: PREGABALIN (*CRX) 50 MG CAPSULE 100 MG PO (23:25)
[2022-08-25] MEDS: INSULIN GLARGINE (*BKC) 100 UNITS/ML 10 UNITS SUB-Q (23:25)
[2022-08-25 23:43] LABS: Glucose Point of Care 406 mg/dl (65-105)
[2022-08-26] VITALS (30 sets, daily range): BP systolic 90–140; BP diastolic 57–74; PULSE 101–116; RESP 12–28; TEMP 35.9–37.1; O2SAT 91–100
[2022-08-26 00:43] LABS: Appearance Urine Clear (Clear); Bilirubin Urine Negative (Negative); Blood Urine 2+ (Negative); Color Urine Yellow (Yellow); Glucose Urine UA 3+ mg/dL (Negative); Ketones Urine Negative (Negative); Leukocyte Esterase Ur Negative LEU/UL (Negative); Nitrate Urine Negative (Negative); Protein Urine 1+ mg/dL (Negative); Urobilinogen Urine 0.2 mg/dL (<2.0); pH Urine 5.5 (5.0-9.0)
[2022-08-26 00:46] LABS: Bacteria Urine 2+ /hpf; Squamous Epithelial Cell Urine Rare /hpf (Few)
[2022-08-26 00:50] LABS: Add Urine Microscopic? YES
[2022-08-26 02:36] LABS: Glucose Point of Care 326 mg/dl (65-105)
[2022-08-26 05:26] LABS: Hematocrit 37.9 % (37.0-47.0); Hemoglobin 11.5 g/dL (12.0-15.0); Mean Corpuscular HGB Conc 30.3 g/dl (32-36); Mean Corpuscular Hemoglobin 25.4 pg (26-34); Mean Corpuscular Volume 83.8 fl (80-100); Mean Platelet Volume 12.3 fl (7.4-10.4); Platelet Count Result 221 k/mm3 (150-375); Red Blood Count 4.52 M/mm3 (4.2-5.4); Red Cell Distribution Width 14.3 % (11.5-14.5); White Blood Count 16.9 K/mm3 (4.5-10.0)
[2022-08-26] MEDS: SODIUM CHLORIDE 0.9% IV 1,000 ML 75 ML IV CONT (05:35)
[2022-08-26 05:39] LABS: Anion Gap 11 mmol/L (8-16); Blood Urea Nitrogen 14 mg/dL (7-17); Calcium 8.3 mg/dL (8.4-10.2); Carbon Dioxide 19 mmol/L (22-30); Chloride 103 mmol/L (98-107); Estimated CRCL calculation 66 ml/min; Estimated Glomerular Filt Rate > 60; Glucose 306 mg/dL (65-110); Magnesium 1.8 mg/dL (1.6-2.3); Potassium 4.8 mmol/L (3.4-5.0); Sodium 133 mmol/L (137-145)
--- NOTE | 2022-08-26 06:00 | ECG_ITS ---
Measurements Intervals [place] Rate: 105 P: 71 [place]: 144 QRS: -22 QRSD: 92 T: 31 QT: 371 QTc: 490 Interpretive Statements SINUS TACHYCARDIA POSSIBLE LEFT ATRIAL ENLARGEMENT BORDERLINE ST-T WAVE ABNORMALITY- ANTEROLAT/INF LEADS BORDERLINE ECG COMPARED TO ECG 08/25/2022 12:03:28 NO SIGNIFICANT CHANGES Electronically Signed On 08-26-2022 9:51:51 SAND BUFFER by Mike Bernardo D.O.
[2022-08-26 07:58] LABS: Glucose Point of Care 357 mg/dl (65-105)
[2022-08-26] MEDS: INSULIN GLARGINE (*BKC) 100 UNITS/ML 10 UNITS SUB-Q ×2 (08:29→20:43)
--- NOTE | 2022-08-26 09:03 | PM.IMPN ---
Progress Note: A&P Assessment and Plan (1) Shortness of breath: Code(s): R06.02 - Shortness of breath Status: Acute Assessment and Plan: Secondary to a combination of mild pulmonary edema, COPD, and NSTEMI. Pulmonary embolism seems less likely however if she has continued tachycardia and sensations of shortness of breath it may be prudent to obtain a CTA of the chest. Chest x-ray reviewed. Lovenox start for NSTEMI. Already on aspirin and Plavix. Also on beta-gisela intolerant to statin Repatha (2) Sepsis: Qualifiers: Sepsis type: sepsis due to unspecified organism Sepsis acute organ dysfunction status: with acute organ dysfunction Severe sepsis acute organ dysfunction type: encephalopathy Severe sepsis shock status: without septic shock Qualified Code(s): A41.9 - Sepsis, unspecified organism; R65.20 - Severe sepsis without septic shock; G93.40 - Encephalopathy, unspecified Code(s): A41.9 - Sepsis, unspecified organism Status: Acute Assessment and Plan: Present on admission supported by leukocytosis, tachycardia, and lactic acidosis. She was given a dose of cefepime and vancomycin in the ED though source is unclear at this time. UA is mildly positive. Follow urine culture. Blood cultures pending as well. On vancomycin cefepime to be continued. WBC count improved (3) Elevated troponin: Code(s): R77.8 - Other specified abnormalities of plasma proteins Status: Acute Assessment and Plan: It is not unusual for this patient to have a troponin leak. She does have diffuse coronary artery disease and following her last cardiac catheterization was suggested that she be seen at tertiary care for high risk PCI if ongoing issues. Cardiology consulted for their opinion. Troponin bump to 13 this a.m.. Lovenox to start continue aspirin Plavix. Further recommendation awaited from Cardiology. EKG with nonspecific ST-T changes without any significant changes compared to previous EKGs (4) Heart failure with reduced ejection fraction: Code(s): I50.20 - Unspecified systolic (congestive) heart failure Status: Acute Assessment and Plan: Mild pulmonary edema on imaging, not significantly volume overloaded. IV Lasix x1 to see how she responds. Continue metoprolol. Unable to tolerate Entresto due to soft blood pressures. Continue oral Lasix home dose Stop IV fluid (5) Anxiety: Code(s): F41.9 - Anxiety disorder, unspecified Status: Acute Assessment and Plan: Her anxiety likely plays a role in her shortness of breath as well. Continue alprazolam and duloxetine. (6) Chronic obstructive pulmonary disease: Qualifiers: COPD type: unspecified COPD Qualified Code(s): J44.9 - Chronic obstructive pulmonary disease, unspecified Code(s): J44.9 - Chronic obstructive pulmonary disease, unspecified Status: Acute Assessment and Plan: No evidence of acute exacerbation at the time my evaluation. She feels that the nebulizers do help and she requests a prescription for nebulizer on discharge. (7) Coronary artery disease: Qualifiers: Coronary Disease-Associated Artery/Lesion type: [place] artery [place] vs. transplanted heart: unspecified whether [place] or transplanted heart Code(s): I25.10 - Atherosclerotic heart disease of [place] coronary artery without angina pectoris Status: Chronic Assessment and Plan: Continue dual antiplatelet therapy and beta-gisela. (8) Peripheral arterial disease: Code(s): I73.9 - Peripheral vascular disease, unspecified Status: Acute Assessment and Plan: No acute issues. 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
[2022-08-26] MEDS: ENOXAPARIN 80 MG/0.8 ML SYRINGE 79 MG SUB-Q (09:16)
[2022-08-26] MEDS: PREGABALIN (*CRX) 50 MG CAPSULE 100 MG PO ×2 (09:16→20:42)
[2022-08-26] MEDS: DULoxetine HCL 60 MG CAPSULE.DR PO ×2 (09:17→20:42)
[2022-08-26] MEDS: CLOPIDOGREL BISULFATE 75 MG TABLET PO (09:17)
[2022-08-26] MEDS: FUROSEMIDE 40 MG TABLET PO (09:17)
[2022-08-26] MEDS: ASPIRIN 81 MG ENTERIC TABLET PO (09:17)
[2022-08-26] MEDS: INSULIN ASPART (*BKC) 100 UNITS/ML 8 UNITS SUB-Q (09:19)
[2022-08-26] MEDS: ALBUTEROL SULFATE NEB 2.5 MG/3 ML INH INHALATION (09:44)
[2022-08-26] MEDS: IPRATROPIUM BR 0.02% INH SOLN 0.5 MG/2.5 ML VIAL INHALATION (09:44)
--- NOTE | 2022-08-26 11:32 | PM.CNCAR ---
Assessment and Plan Assessment and plan (1) Non-ST elevation [place] (NSTEMI): Code(s): I21.4 - Non-ST elevation (NSTEMI) myocardial infarction Status: Acute (2) Heart failure with reduced ejection fraction: Code(s): I50.20 - Unspecified systolic (congestive) heart failure Status: Acute (3) Suspected sleep apnea: Code(s): R29.818 - Other symptoms and signs involving the nervous system Status: Acute (4) Acute on chronic heart failure with reduced ejection fraction and diastolic dysfunction: Code(s): I50.43 - Acute on chronic combined systolic (congestive) and diastolic (congestive) heart failure Status: Acute (5) Peripheral arterial disease: Code(s): I73.9 - Peripheral vascular disease, unspecified Status: Acute (6) Coronary artery disease: Qualifiers: Associated angina: without angina Coronary Disease-Associated Artery/Lesion type: [place] artery [place] vs. transplanted heart: [place] heart Qualified Code(s): I25.10 - Atherosclerotic heart disease of [place] coronary artery without angina pectoris Code(s): I25.10 - Atherosclerotic heart disease of [place] coronary artery without angina pectoris Status: Acute (7) Chronic obstructive pulmonary disease: Qualifiers: COPD type: unspecified COPD Qualified Code(s): J44.9 - Chronic obstructive pulmonary disease, unspecified Code(s): J44.9 - Chronic obstructive pulmonary disease, unspecified Status: Acute (8) Hyperlipidemia: Code(s): E78.5 - Hyperlipidemia, unspecified Status: Chronic (9) Diabetes mellitus: Code(s): E11.9 - Type 2 diabetes mellitus without complications Status: Chronic Plan Troponin is now up to 13, which is significantly higher than previous admissions. Patient has had multiple readmissions for heart failure now (although has had issues with Lasix non-compliance leading to some of those admissions). Given this, will plan for coronary angiography today. Had mild-moderate distal LM stenosis back in June 2022. Will plan to IVUS the LM and ostial LAD. If IVUS shows significant disease, then will need CT Surgery evaluation (which would require transfer to a tertiary center). If IVUS does not show significant obstructive disease, then will need PCI of the RCA - which would be complex PCI given severe diffuse calcifications in the RCA that will need atherectomy; this also would require to a higher care center. Continue ASA and Plavix for CAD. Not on statin due to statin intolerance. On Repatha at em. For cardiomyopathy, continue with Jardiance, and Toprol. Did not tolerate ACEi/ARB/ARNI previously due to low blood pressures. History of Present Illness History of Present Illness Consult date/time: 08/26/22 11:32 Requesting physician: Huey Ornelas MD Consult reason: congestive heart failure and Other (Elevated troponin) Reason For Visit: Sepsis Narrative: This is a 57-year-old female with a history of CAD s/p prior PCI, cardiomyopathy with LVEF 30-35%, peripheral arterial disease s/p bilateral iliac stents, history of right BKA, COPD, Diabetes, anxiety/depression, hyperlipidemia on Repatha, history of loop recorder who presented this time for shortness of breath. She has had a few heart failure exacerbation admissions over the past few months. She is well known to us from her recurrent admissions. Patient reports she has had difficulty laying flat. Reports chest tightness that does worsen with breathing. Labs on presentation were significant for WBC of 18, lactic acid 3.4. BNP 1920. COVID and influenza negative. CXR with signs of volume overload. EKG showing sinus tachycardia without ischemic changes, unchanged compared to prior. Her troponins this time were 0.221 --> 1.690 --> 2.770 --> 13.100. On her last hospitalization, patient had admitted to not taking her Lasix as prescribed, but patient tells me today that she has been taking her Lasix
[2022-08-26 11:39] LABS: Glucose Point of Care 284 mg/dl (65-105)
[2022-08-26] MEDS: INSULIN ASPART (*BKC) 100 UNITS/ML SUB-Q (11:55)
--- NOTE | 2022-08-26 12:32 | WPDMODSED ---
Moderate Sedation Note-Pt Data Patient Data Diagnosis: NSTEMI Present Complaint: SOB, Chest pain Procedure to be performed/Plan: Coronary angiography, IVUS Allergies Allergy/AdvReac Type Severity Reaction Status Date / Time propofol Allergy Agitated Verified 08/25/22 12:09 [id number] Reductase AdvReac Intermediate MYALGIAS Verified 08/25/22 12:09 Inhibitor Home Medications Medication Instructions Recorded Confirmed Type insulin lispro 100 unit/mL 10 unit subcut TIDWM 03/30/22 08/25/22 History subcutaneous solution (Admelog U-100 Insulin lispro) semaglutide 0.25 mg or 0.5 mg (2 1 mg subcut WEEKLY 03/30/22 08/25/22 History mg/1.5 mL) subcutaneous pen injector (Ozempic) duloxetine 30 mg capsule,delayed 60 mg PO Q12H 06/15/22 08/25/22 History release (Cymbalta) evolocumab 140 mg/mL subcutaneous 140 mg subcut [id number] 06/15/22 08/25/22 History pen injector (Bety Friedman) alprazolam 0.5 mg tablet 0.5 mg PO BID PRN Anxiety #12 tabs 06/27/22 08/25/22 Rx aspirin 81 mg tablet,delayed 81 mg PO QAM #30 tabs 06/27/22 08/25/22 Rx release clopidogrel 75 mg tablet 75 mg PO QAM #30 tabs 06/27/22 08/25/22 Rx empagliflozin 10 mg tablet 10 mg PO DAILY #30 tabs 06/27/22 08/25/22 Rx (Jardiance) hydrocodone 5 mg-acetaminophen 325 1 tablet PO Q6-8H PRN Pain Rated 07/14/22 08/25/22 Rx mg tablet 7-10 #12 tabs magnesium oxide 400 mg (241.3 mg 400 mg PO DAILY #30 tabs 07/14/22 08/25/22 Rx magnesium) tablet pregabalin 50 mg capsule (Lyrica) 100 mg PO Q12H #60 caps 08/04/22 08/25/22 Rx furosemide 40 mg tablet 40 mg PO QAM #30 tabs 08/14/22 08/25/22 Rx metoprolol succinate 25 mg 12.5 mg PO HS #30 tabs 08/14/22 08/25/22 Rx tablet,extended release 24 hr potassium chloride 10 mEq 20 meq PO DAILY #60 caps 08/14/22 08/25/22 Rx capsule,extended release blood-glucose meter (OneTouch #1 ea 08/18/22 08/25/22 Rx Ultra2 Meter) insulin glargine 100 unit/mL (3 10 unit subcut Q12H 08/25/22 08/25/22 History mL) subcutaneous pen (Basaglar KwikPen U-100 Insulin) Current Medications: Active Medications Acetaminophen (Acetaminophen 325 Mg Tablet) 650 mg PO Q6H PRN PRN Reason: Mild Pain (1-3) or Fever Hydrocodone Bitart/Acetaminophen (Hydrocodone/Acetaminophen (*Crx) 5-325 Mg Tablet) 1 tab PO Q6-8H PRN PRN Reason: Pain Rated 7-10 Albuterol (Albuterol Sulfate Neb 2.5 Mg/3 Ml Inh) 2.5 mg INHALATION Q6HRT PRN PRN Reason: Shortness Of Breath Or Wheezing Last Admin: 08/26/22 09:44 Dose: 2.5 mg Alprazolam (Alprazolam (*Crx) 0.5 Mg Tablet) 0.5 mg PO BID PRN PRN Reason: Anxiety Aspirin (Aspirin 81 Mg Enteric Tablet) 81 mg PO [facility] Last Admin: 08/26/22 09:17 Dose: 81 mg Clopidogrel Bisulfate (Clopidogrel Bisulfate 75 Mg Tablet) 75 mg PO [facility] Last Admin: 08/26/22 09:17 Dose: 75 mg Dextrose (Dextrose 50% 25 Gm/50 Ml Syringe) 12.5 gm IV PUSH PRN PRN; Protocol PRN Reason: Hypoglycemia Duloxetine HCl (Duloxetine Hcl 60 Mg Capsule.Dr) 60 mg PO Q12HR [facility] Last Admin: 08/26/22 09:17 Dose: 60 mg Empagliflozin (Empagliflozin 10 Mg Tablet) 10 mg PO DAILY [facility] Last Admin: 08/26/22 09:03 Dose: Not Given Enoxaparin Sodium (Enoxaparin 80 Mg/0.8 Ml Syringe) 79 mg SUB-Q Q12H [facility] Last Admin: 08/26/22 09:16 Dose: 79 mg Furosemide (Furosemide 40 Mg Tablet) [facility] [place] Admin: 08/26/22 09:17 Dose: 40 mg Glucagon (Glucagon For Inj 1 Mg Vial) 1 mg IM PRN PRN; Protocol PRN Reason: Hypoglycemia Glucose (Glucose Oral Gel 15 Gm Of Glucse In 37.5 Gm Tube) 15 gm PO PRN PRN; Protocol PRN Reason: Hypoglycemia Vancomycin HCl (Vancomycin 1,500 Mg/D5w 500 Ml) 1,500 mg in 500 mls @ 333.333 mls/hr IVPB Q12H [facility] Last Admin: 08/26/22 05:35 Dose: 333.33 mls/hr Dextrose (Dextrose 5% 1,000 Ml) 1,000 mls @ 100 mls/hr IVPB PRN PRN; Protocol PRN Reason: Hypoglycemia Cefepime HCl (Maxipime 2 Gm/D5w 50 Ml) 2 gm in 50 mls @ 100 mls/hr IVPB Q8H [facility] Last Admin: 08/26/22 10:26 Dose:
[2022-08-26 13:00] LABS: Cholesterol 242 mg/dL (0-200); HDL Direct 51 mg/dL; Triglycerides 197 mg/dL (<150)
[2022-08-26 13:08] LABS: Hemoglobin A1C 8.8 % (<5.7)
[2022-08-26 13:11] LABS: LDL Cholesterol Direct 144 mg/dL
--- NOTE | 2022-08-26 14:34 | WPDCARDPROC ---
Cardiac Cath Procedure Note Date of procedure:: 08/26/22 Performing physician:: CATHETERIZATION LABORATORY REPORT Procedure Date: 08/26/2022 Business Process Representative: Micheline Salinas M.D., [facility]? Referring Physician: Micheline Salinas M.D. ? Anesthesia: Versed and Fentanyl were ordered and given in my presence at 12:34, procedure ended at 13:23. Supervision of nurse monitored moderate sedation with Versed and Fentanyl was provided for 49 minutes. Total of Versed 2mg and Fentanyl 75mcg were administered by the Photoengraving Printer RN Brissa Dowling. Pre-op Diagnosis: Coronary artery disease Post-op Diagnosis: Multivessel coronary artery disease involving distal left main, LAD, RCA/RPLV/RPDA Elevated left ventricular end-diastolic pressure of 30mmHg Procedure(s): 1. Moderate sedation 2. Ultrasound-guided access of the right common femoral artery 3. Coronary angiography 4. Left heart cath 5. IVUS of the left main Access Site: Right common femoral artery Brief History and Clinical Indications: Patient is a 57-year-old female with a history of CAD s/p prior PCI, peripheral vascular disease s/p bilateral iliac artery stenting and stenting of iliac vein, R BKA, diabetes, COPD, HFrEF who is referred for ischemic evaluation for NSTEMI. All risks, benefits and alternatives to left heart catheterization with or without percutaneous coronary intervention was discussed at length with the patient. Risk of complications including but not limited to bleeding, infection, arrhythmia, stroke, worsening kidney function, blood loss, groin hematoma, limb loss, emergency coronary artery bypass grafting, and even were discussed with the patient and all questions were answered. The patient understood and wished to proceed. Time out called, patient name, date of , medical record number, allergies, procedure performed, identify Business Process Representative, patient and staff member concurred with accurate data, procedure carried on. Findings: LEFT HEART CATHETERIZATION FINDINGS: 1. Left main: The distal left main has an angiographic 50% calcified lesion. IVUS of the distal left main/ostial LAD was attempted, however, IVUS catheter would not cross the distal left main. Of the LM that we did visualize on IVUS, there is significant disease with an MLA of 6.2mm2. 2. Left anterior descending: Prior stent seen in the proximal-mid LAD which is patent. The mid-distal LAD has diffuse disease with a moderate lesion in the mid LAD and an 80-90% stenosis in the distal LAD. There is an occluded diagonal vessels. Remaining diagonal vessels are of very small caliber and diffusely diseased. 3. Left circumflex: The left circumflex and obtuse marginal system are all very small caliber vessels and are diffusely diseased. 4. Right coronary artery: The RCA is the dominant vessel. The RCA has diffuse heavy calcifications. There is mild diffuse disease in the proximal-mid RCA. The mid-distal RCA has a focal heavily calcified significant 99% obstructive lesion followed by a tandem 90% calcified lesion. The RPLV is a small caliber diffusely diseased vessel with a subtotal occlusion in its mid portion. The RPDA is also a small caliber vessel that is diffusely diseased with a significant lesion in its mid portion. 5. Left ventricle: A. End-diastolic pressure 32mmHg. B. LV gram deferred. C. No significant gradient across aortic valve on catheter pullback. Description of Procedure: Informed consent signed and placed in the chart. Patient transferred to cathead operator room. Prepped and draped in usual sterile fashion. 2% lidocaine in right groin area. Micropuncture needle used to access right common femoral artery with Seldinger technique under fluoroscopic and ultrasound guidance. J wire advanced, micropuncture cannula placed. Right iliofemoral angiogram performed, initial stick was high. Micropuncture cannula removed. Manual pressure applied for hemostasis. Micropuncture needle used again to access right
[2022-08-26] MEDS: FUROSEMIDE INJ 40 MG/4 ML VIAL IV PUSH (15:22)
[2022-08-26 17:10] LABS: Glucose Point of Care 172 mg/dl (65-105)
[2022-08-26 20:19] LABS: Glucose Point of Care 262 mg/dl (65-105)
[2022-08-26] MEDS: METOPROLOL SUCCINATE EXT REL 12.5 MG TABCR PO (20:44)
[2022-08-27] VITALS (15 sets, daily range): BP systolic 93–104; BP diastolic 43–60; PULSE 94–110; RESP 14–21; TEMP 35.8–36.7; O2SAT 94–100
[2022-08-27 03:08] LABS: Basophils Absolute Auto 0.1 K/mm3 (0.0-0.1); Basophils Percent Auto 1.1 % (0.2-1.2); Eosinophils Absolute Auto 0.2 K/mm3 (0-0.3); Eosinophils Percent Auto 2.1 % (0-4.4); Hematocrit 35.9 % (37.0-47.0); Immature Granulocyte Absolute 0.03 K/mm3 (0.00-0.031); Immature Granulocyte Percent A 0.3 % (0-0.5); Lymphocytes Absolute Auto 1.18 K/mm3 (0.9-3.2); Lymphocytes Percent Auto 12.1 % (18.3-44.2); Mean Corpuscular HGB Conc 30.6 g/dl (32-36); Mean Corpuscular Hemoglobin 25.6 pg (26-34); Mean Corpuscular Volume 83.7 fl (80-100); Mean Platelet Volume 11.8 fl (7.4-10.4); Monocytes Absolute Auto 0.5 K/mm3 (0.1-0.6); Monocytes Percent Auto 4.9 % (2.6-8.5); Neutrophils Absolute Auto 7.8 K/mm3 (1.3-6.7); Neutrophils Percent Auto 79.5 % (45.5-73.1); Platelet Count Result 189 k/mm3 (150-375); Red Blood Count 4.29 M/mm3 (4.2-5.4); Red Cell Distribution Width 14.6 % (11.5-14.5); White Blood Count 9.8 K/mm3 (4.5-10.0)
[2022-08-27 03:17] LABS: Alanine Aminotransferase 29 U/L (6-35); Albumin Level 3.5 g/dL (3.5-5.1); Alkaline Phosphatase 96 U/L (38-126); Anion Gap 9 mmol/L (8-16); Aspartate Amino Transferase 91 U/L (14-36); Bilirubin,Total 0.8 mg/dL (0.2-1.3); Blood Urea Nitrogen 16 mg/dL (7-17); Carbon Dioxide 21 mmol/L (22-30); Chloride 105 mmol/L (98-107); Estimated CRCL calculation 66 ml/min; Estimated Glomerular Filt Rate > 60; Glucose 176 mg/dL (65-110); Magnesium 1.7 mg/dL (1.6-2.3); Potassium 2.9 mmol/L (3.4-5.0); Sodium 135 mmol/L (137-145)
[2022-08-27] MEDS: IPRATROPIUM BR 0.02% INH SOLN 0.5 MG/2.5 ML VIAL INHALATION (03:33)
[2022-08-27] MEDS: ALBUTEROL SULFATE NEB 2.5 MG/3 ML INH INHALATION (03:33)
[2022-08-27 04:19] LABS: Vancomycin Trough 23.5 ug/mL (10.0-20.0)
[2022-08-27 07:58] LABS: Glucose Point of Care 182 mg/dl (65-105)
[2022-08-27 09:44] LABS: Basophils Absolute Auto 0.1 K/mm3 (0.0-0.1); Basophils Percent Auto 0.7 % (0.2-1.2); Eosinophils Absolute Auto 0.3 K/mm3 (0-0.3); Eosinophils Percent Auto 2.6 % (0-4.4); Hematocrit 34.5 % (37.0-47.0); Hemoglobin 10.9 g/dL (12.0-15.0); Immature Granulocyte Absolute 0.03 K/mm3 (0.00-0.031); Immature Granulocyte Percent A 0.3 % (0-0.5); Lymphocytes Absolute Auto 0.97 K/mm3 (0.9-3.2); Mean Corpuscular HGB Conc 31.6 g/dl (32-36); Mean Corpuscular Hemoglobin 25.6 pg (26-34); Mean Corpuscular Volume 81.2 fl (80-100); Mean Platelet Volume 11.5 fl (7.4-10.4); Monocytes Absolute Auto 0.6 K/mm3 (0.1-0.6); Monocytes Percent Auto 6.1 % (2.6-8.5); Neutrophils Absolute Auto 7.8 K/mm3 (1.3-6.7); Neutrophils Percent Auto 80.3 % (45.5-73.1); Platelet Count Result 190 k/mm3 (150-375); Red Blood Count 4.25 M/mm3 (4.2-5.4); Red Cell Distribution Width 14.6 % (11.5-14.5); White Blood Count 9.7 K/mm3 (4.5-10.0)
[2022-08-27] MEDS: HEPARIN SOD/D5W 100 UNITS/ML 25,000 UNITS/250 ML BAG 8 UNITS IV CONT (09:46)
[2022-08-27] MEDS: POTASSIUM CHLORIDE 20 MEQ TABLET PO (09:50)
[2022-08-27] MEDS: MAGNESIUM OXIDE 400 MG TABLET PO (09:50)
[2022-08-27] MEDS: PREGABALIN (*CRX) 50 MG CAPSULE 100 MG PO (09:50)
[2022-08-27] MEDS: POTASSIUM CHLORIDE 10 MEQ TABLET.ER 20 MEQ PO (09:50)
[2022-08-27] MEDS: DULoxetine HCL 60 MG CAPSULE.DR PO (09:50)
[2022-08-27] MEDS: ASPIRIN 81 MG ENTERIC TABLET PO (09:50)
[2022-08-27] MEDS: EMPAGLIFLOZIN 10 MG TABLET PO (09:50)
[2022-08-27] MEDS: INSULIN GLARGINE (*BKC) 100 UNITS/ML 10 UNITS SUB-Q (09:51)
[2022-08-27] MEDS: FUROSEMIDE INJ 40 MG/4 ML VIAL IV PUSH (09:51)
[2022-08-27 09:55] LABS: INR 1.1; Prothrombin Time 13.4 Seconds (11.1-14.7)
[2022-08-27 09:56] LABS: Partial Thromboplastin Time 28.3 SECONDS (22.3-36.8)
[2022-08-27] MEDS: ALPRAZolam (*CRX) 0.5 MG TABLET PO (10:10)
--- NOTE | 2022-08-27 10:52 | PM.PNCARD ---
Progress Note: A&P Assessment and Plan (1) Non-ST elevation [place] (NSTEMI): Code(s): I21.4 - Non-ST elevation (NSTEMI) myocardial infarction Status: Acute (2) Suspected sleep apnea: Code(s): R29.818 - Other symptoms and signs involving the nervous system Status: Acute (3) Acute respiratory failure with hypoxia: Code(s): J96.01 - Acute respiratory failure with hypoxia Status: Acute (4) Acute on chronic heart failure with reduced ejection fraction and diastolic dysfunction: Code(s): I50.43 - Acute on chronic combined systolic (congestive) and diastolic (congestive) heart failure Status: Acute (5) Peripheral arterial disease: Code(s): I73.9 - Peripheral vascular disease, unspecified Status: Acute (6) Coronary artery disease: Qualifiers: Associated angina: without angina Coronary Disease-Associated Artery/Lesion type: [place] artery [place] vs. transplanted heart: [place] heart Qualified Code(s): I25.10 - Atherosclerotic heart disease of [place] coronary artery without angina pectoris Code(s): I25.10 - Atherosclerotic heart disease of [place] coronary artery without angina pectoris Status: Acute (7) Anxiety and depression: Code(s): F41.9 - Anxiety disorder, unspecified; F32.A - Depression, unspecified Status: Acute (8) Chronic obstructive pulmonary disease: Qualifiers: COPD type: unspecified COPD Qualified Code(s): J44.9 - Chronic obstructive pulmonary disease, unspecified Code(s): J44.9 - Chronic obstructive pulmonary disease, unspecified Status: Acute (9) Hyperlipidemia: Code(s): E78.5 - Hyperlipidemia, unspecified Status: Chronic (10) Diabetes mellitus: Code(s): E11.9 - Type 2 diabetes mellitus without complications Status: Chronic Plan Awaiting transfer to [facility] for CT Surgery evaluation for possible CABG. Continue Heparin drip. Continue ASA 81mg once daily. Continue beta-gisela. Intermittent IV diuresis as needed to maintain euvolemia. Subjective Date/time seen: 08/27/22 10:53 Interval history: HPI: This is a 57-year-old female with a history of CAD s/p prior PCI, cardiomyopathy with LVEF 30-35%, peripheral arterial disease s/p bilateral iliac stents, history of right BKA, COPD, Diabetes, anxiety/depression, hyperlipidemia on Repatha, history of loop recorder who presented this time for shortness of breath. She has had a few heart failure exacerbation admissions over the past few months. She is well known to us from her recurrent admissions. Patient reports she has had difficulty laying flat. Reports chest tightness that does worsen with breathing. Labs on presentation were significant for WBC of 18, lactic acid 3.4. BNP 1920. COVID and influenza negative. CXR with signs of volume overload. EKG showing sinus tachycardia without ischemic changes, unchanged compared to prior. Her troponins this time were 0.221 --> 1.690 --> 2.770 --> 13.100. On her last hospitalization, patient had admitted to not taking her Lasix as prescribed, but patient tells me today that she has been taking her Lasix without missing any doses and has been compliant with her medications, including ASA and Plavix. Patient states she has not had the chance to follow-up with her cardiology team. Was initially supposed to see them after her hospitalization in June, but patient states she hasn't had the chance to see them. Date of service 08/27: Cardiac cath yesterday showed MVCAD involving distal left main, LAD, RCA/RPLV/RPDA. Awaiting transfer to [facility] for CT Surgery evaluation. Patient is without chest pain or shortness of breath this morning. She is tearful and crying at the thought of possibly needing open heart surgery. Review of Systems Review of Systems: 8-point ROS obtained. Negative, unless stated in HPI. Exam Const: General: no acute distress HENMT: Mouth: Yes moist mucous
[2022-08-27 11:50] LABS: Glucose Point of Care 236 mg/dl (65-105)
[2022-08-27] MEDS: POTASSIUM CHLORIDE INJ 40 MEQ in SODIUM CHLORIDE 0.9% IV 500 ML 130 MEQ IVPB (12:33)
[2022-08-27] MEDS: INSULIN ASPART (*BKC) 100 UNITS/ML SUB-Q ×2 (12:34→16:50)
--- NOTE | 2022-08-27 13:39 | PM.IMPN ---
Progress Note: A&P Assessment and Plan (1) Shortness of breath: Code(s): R06.02 - Shortness of breath Status: Acute Assessment and Plan: Secondary to a combination of mild pulmonary edema, COPD, and NSTEMI. Pulmonary embolism seems less likely however if she has continued tachycardia and sensations of shortness of breath it may be prudent to obtain a CTA of the chest. Chest x-ray reviewed. Lovenox start for NSTEMI. Already on aspirin and Plavix. Also on beta-gisela intolerant to statin Repatha Status post cardiac catheterization 08/26/2022: MVCAD involving distal left main, LAD, RCA/RPLV/RPDA. Cardiology plans evaluation for CABG. Plan for transfer to [facility] excepted by CT surgery. Awaiting bed placement/availability. Started on IV heparin this morning (2) Sepsis: Qualifiers: Sepsis type: sepsis due to unspecified organism Sepsis acute organ dysfunction status: with acute organ dysfunction Severe sepsis acute organ dysfunction type: encephalopathy Severe sepsis shock status: without septic shock Qualified Code(s): A41.9 - Sepsis, unspecified organism; R65.20 - Severe sepsis without septic shock; G93.40 - Encephalopathy, unspecified Code(s): A41.9 - Sepsis, unspecified organism Status: Acute Assessment and Plan: Present on admission supported by leukocytosis, tachycardia, and lactic acidosis. She was given a dose of cefepime and vancomycin in the ED though source is unclear at this time. UA is mildly positive. Follow urine culture. Blood cultures pending as well. On vancomycin cefepime to be continued. WBC count improved (3) Elevated troponin: Code(s): R77.8 - Other specified abnormalities of plasma proteins Status: Acute Assessment and Plan: It is not unusual for this patient to have a troponin leak. She does have diffuse coronary artery disease and following her last cardiac catheterization was suggested that she be seen at tertiary care for high risk PCI if ongoing issues. Cardiology consulted for their opinion. Troponin bump to 13 this a.m.. Lovenox to start continue aspirin Plavix. Further recommendation awaited from Cardiology. EKG with nonspecific ST-T changes without any significant changes compared to previous EKGs (4) Heart failure with reduced ejection fraction: Code(s): I50.20 - Unspecified systolic (congestive) heart failure Status: Acute Assessment and Plan: Mild pulmonary edema on imaging, not significantly volume overloaded. IV Lasix x1 to see how she responds. Continue metoprolol. Unable to tolerate Entresto due to soft blood pressures. Continue oral Lasix home dose Stop IV fluid (5) Anxiety: Code(s): F41.9 - Anxiety disorder, unspecified Status: Acute Assessment and Plan: Her anxiety likely plays a role in her shortness of breath as well. Continue alprazolam and duloxetine. (6) Chronic obstructive pulmonary disease: Qualifiers: COPD type: unspecified COPD Qualified Code(s): J44.9 - Chronic obstructive pulmonary disease, unspecified Code(s): J44.9 - Chronic obstructive pulmonary disease, unspecified Status: Acute Assessment and Plan: No evidence of acute exacerbation at the time my evaluation. She feels that the nebulizers do help and she requests a prescription for nebulizer on discharge. (7) Coronary artery disease: Qualifiers: Coronary Disease-Associated Artery/Lesion type: [place] artery [place] vs. transplanted heart: unspecified whether [place] or transplanted heart Code(s): I25.10 - Atherosclerotic heart disease of [place] coronary artery without angina pectoris Status: Chronic Assessment and Plan: Continue dual antiplatelet therapy and beta-gisela. (8) Peripheral arterial disease: Code(s): I73.9 - Peripheral vascular disease, unspecified Status: Acute Assessment and Ruben
[2022-08-27 16:56] LABS: Glucose Point of Care 216 mg/dl (65-105)
[2022-08-27] MEDS: HEPARIN SODIUM 5,000 UNITS/ML VIAL 4000 UNITS IV PUSH (17:09)
--- NOTE | 2022-08-27 18:35 | PC.NURSE ---
Bed received from E- report given to Batool Oliva RN
--- NOTE | 2022-08-27 19:02 | PM.TDS ---
Transfer Discharge Sum: Prov Provider Date of admission: 08/25/22 14:21 Primary care physician: Zay Martinze MD Admitting clinician: Linda Power MD Consults: 08/25/22 Wound/ET Consult Routine Reason for Consult:: Left 1st toe wound 08/25/22 14:22 Consult to Physician Routine Comment: Consulting Provider: Sunny Burden Reason for consultation: elevated troponin Has provider been notified: Yes Attending physician on discharge: Huey Ornelas Discharging clinician: Huey Ornelas Anticipated date of transfer: 08/27/22 Receiving physician/facility: [facility] DS: Admitting Diagnosis Discharge Date 08/27/22 Admitting Diagnosis Shortness of breath Transfer Discharge Sum: Med Medications Active and Home Medications: Home Medications insulin lispro 100 unit/mL subcutaneous solution (Admelog U-100 Insulin lispro) 10 unit subcut TIDWM 03/30/22 [History Confirmed 08/25/22] semaglutide 0.25 mg or 0.5 mg (2 mg/1.5 mL) subcutaneous pen injector (Ozempic) 1 mg subcut WEEKLY 03/30/22 [History Confirmed 08/25/22] duloxetine 30 mg capsule,delayed release (Cymbalta) 60 mg PO Q12H 06/15/22 [History Confirmed 08/25/22] evolocumab 140 mg/mL subcutaneous pen injector (Repatha SureClick) 140 mg subcut [id number] 06/15/22 [History Confirmed 08/25/22] alprazolam 0.5 mg tablet 0.5 mg PO BID PRN Anxiety #12 tabs 06/27/22 [Rx Confirmed 08/25/22] aspirin 81 mg tablet,delayed release 81 mg PO QAM #30 tabs 06/27/22 [Rx Confirmed 08/25/22] clopidogrel 75 mg tablet 75 mg PO QAM #30 tabs 06/27/22 [Rx Confirmed 08/25/22] empagliflozin 10 mg tablet (Jardiance) 10 mg PO DAILY #30 tabs 06/27/22 [Rx Confirmed 08/25/22] hydrocodone 5 mg-acetaminophen 325 mg tablet 1 tablet PO Q6-8H PRN Pain Rated 7-10 #12 tabs 11/29/22 [Rx Confirmed 08/25/22] magnesium oxide 400 mg (241.3 mg magnesium) tablet 400 mg PO DAILY #30 tabs 07/14/22 [Rx Confirmed 08/25/22] pregabalin 50 mg capsule (Lyrica) 100 mg PO Q12H #60 caps 08/04/22 [Rx Confirmed 08/25/22] furosemide 40 mg tablet 40 mg PO QAM #30 tabs 08/14/22 [Rx Confirmed 08/25/22] metoprolol succinate 25 mg tablet,extended release 24 hr 12.5 mg PO HS #30 tabs 08/14/22 [Rx Confirmed 08/25/22] potassium chloride 10 mEq capsule,extended release 20 meq PO DAILY #60 caps 08/14/22 [Rx Confirmed 08/25/22] blood-glucose meter ([employer] Ultra2 Meter) #1 ea 08/18/22 [Rx Confirmed 08/25/22] insulin glargine 100 unit/mL (3 mL) subcutaneous pen (Basaglar KwikPen U-100 Insulin) 10 unit subcut Q12H 08/25/22 [History Confirmed 08/25/22] Transfer Discharge Sum: Hosp Hospital Course Hospital course: Tiff Vaughn is a 57 year old female who presented with shortness of breath. # Shortness of breath: Secondary to a combination of mild pulmonary edema, COPD, and NSTEMI. Chest x-ray reviewed.? Lovenox started for NSTEMI.? Already on aspirin and Plavix.? Also on beta-gisela intolerant to statin Repatha Status post cardiac catheterization 08/26/2022:? MVCAD involving distal left main, LAD, RCA/RPLV/RPDA.? Cardiology plans evaluation for CABG.? Plan for transfer to [facility] excepted by CT surgery.? Continued on IV heparin. Transfer to [facility] for CT surgery evaluation # sepsis: Present on admission supported by leukocytosis, tachycardia, and lactic acidosis. She was given a dose of cefepime and vancomycin in the ED though source is unclear at this time. UA is mildly positive.? Follow urine culture. Blood cultures no growth to date.? On vancomycin cefepime to be continued.? WBC count improved # elevated troponin: Suggestive of non ST-elevation [place]. Troponin bumped 13 see above # heart failure with reduced ejection fraction: Mild pulmonary edema on imaging, not significantly volume overloaded. She was diuresed as tolerated. Continue metoprolol. Unable to tolerate Entresto due to soft blood pressures. Continue oral Lasix home dose # Anxiety: Her anx
--- NOTE | 2022-08-27 19:20 | PC.NURSE ---
[facility] here to transfer pt to [facility] - room 9240 bed 1 report given to Batool NUNES- IV heparin infusing 11cc/1100 units/hr- denies pain at this time
== END 2022-08-27 19:00 | disposition short-term general hospital (02) | DRG 280 ==
LOC: ANHED 12:16 → ANHIMU 16:05
PROVIDERS: Emergency Medicine; Internal Medicine; Physician Assistant; Admitting Provider Family Medicine; Emergency Provider Emergency Medicine; PCP Emergency Medicine; Visit Provider Internal Medicine
PROC: 4A023N7 Measurement of Cardiac Sampling and Pressure, Left Heart, Percutaneous Approach (ICD-10-PCS; CPT 93452; principal; 2022-08-26 12:30)
PROC: 4A023N7 Measurement of Cardiac Sampling and Pressure, Left Heart, Percutaneous Approach (ICD-10-PCS; 2022-08-26 12:30)
DX: I21.4 Non-ST elevation (NSTEMI) myocardial infarction (principal); A41.9 Sepsis, unspecified organism; I50.43 Acute on chronic combined systolic (congestive) and diastolic (congestive) heart failure; G93.41 Metabolic encephalopathy; J44.9 Chronic obstructive pulmonary disease, unspecified; E11.42 Type 2 diabetes mellitus with diabetic polyneuropathy; E78.00 Pure hypercholesterolemia, unspecified; E11.51 Type 2 diabetes mellitus with diabetic peripheral angiopathy without gangrene; F41.9 Anxiety disorder, unspecified; F32.A Depression, unspecified; L89.899 Pressure ulcer of other site, unspecified stage; G47.30 Sleep apnea, unspecified; I25.10 Atherosclerotic heart disease of native coronary artery without angina pectoris; Z79.02 Long term (current) use of antithrombotics/antiplatelets; Z20.822 Contact with and (suspected) exposure to COVID-19; Z95.5 Presence of coronary angioplasty implant and graft; Z90.49 Acquired absence of other specified parts of digestive tract; Z79.4 Long term (current) use of insulin; Z90.710 Acquired absence of both cervix and uterus; Z89.511 Acquired absence of right leg below knee; Z87.891 Personal history of nicotine dependence
CPT/HCPCS: 36415; 71045; 80048; 80053; 80061; 80202; 81001; 82948; 83036; 83605; 83735; 83880; 84484; 85025; 85027; 85380; 85610; 85730; 87040; 87086; 87636; 92978; 93005; 93458; 94640; 96360; 99285; A9270; C1753; C1769; C1887; C1894; J0692; J1644; J1650; J1815; J1940; J2250; J3010; J3370; J3480; J7030; J7040

== ENCOUNTER 2022-11-19 02:37 | Inpatient (IN) | payer MEDICARE, MEDICAID, SELFPAY ==
[2022-11-19] VITALS (15 sets, daily range): BP systolic 98–135; BP diastolic 61–67; PULSE 99–123; RESP 14–22; TEMP 36.4–37.1; O2SAT 93–99; BMI 22.8
--- NOTE | ~2022-11-19 | XR_ITS ---
XR chest 1V portable DATE: 11/21/2022 05:44 INDICATION: Congestive heart failure. Dyspnea. TECHNIQUE: Portable upright AP chest on November 21, 2022 at 0532 hours COMPARISON: Portable AP chest on November 19, 2022 at 0353 hours FINDINGS: Status post sternotomy. Cardiomegaly. Aortic calcification. Increased retrocardiac density on the left since November 19, 2022, consistent with left lower lobe atele ctasis and/or consolidation. Small bilateral pleural effusions. Mild infiltrate or atelectasis in the right mid and lower lung. Diffuse osteopenia. Mild dextroscoliosis of the thoracic spine. Degenerative spurring of the thoracic spine. Vertebroplasty at L1. Probable old fracture deformity of the proximal left humerus. IMPRESSION: Increased left lower lobe atelectasis and/or consolidation since November 19, 2022. Persisten t mild pleural effusions and mild infiltrate or atelectasis in the right mid and lower lung zones Reviewed, dictated and finalized at location A. IMPRESSION: Increased left lower lobe atelectasis and/or consolidation since Ap 2022. Persistent mild pleural effusions and mild infiltrate or atelectas is in the right mid and lower lung zones
--- NOTE | ~2022-11-19 | XR_ITS ---
EXAMINATION: XR chest 1V portable INDICATION: Shortness of breath TECHNIQUE: Portable AP chest at 0353 hours COMPARISON: 08/25/2022 FINDINGS: There is a retrocardiac opacity of the left lung base not identified on the relatively rece nt comparison examination. There are changes of interval cardiac surgery. No pneumothorax is identifi ed. Changes of prior cardiac surgery are noted. A cardiac monitoring device projects over the left mi d chest. Again noted is an old fracture of the left humeral head. Cardiomegaly is noted. IMPRESSION: 1. Changes of interval cardiac surgery. 2. Retrocardiac opacity of the left lung base which could reflect atelectasis or pneumonia or be rela domenico to interval cardiac surgery. Consider CT of the chest. Reviewed, dictated and finalized at location L. IMPRESSION: 1. Changes of interval cardiac surgery. 2. Retrocardiac opacity of the left lung base which could reflect atelectasis o r pneumonia or be related to interval cardiac surgery. Consider CT of the chest .
--- NOTE | 2022-11-19 02:58 | ECG_ITS ---
Measurements Intervals [place] Rate: 114 P: 124 SC: 169 QRS: 26 QRSD: 94 T: 82 QT: 347 QTc: 479 Interpretive Statements SINUS TACHYCARDIA WITH OCCASIONAL VENTRICULAR PREMATURE COMPLEXES LOW QRS VOLTAGE IN EXTREMITY LEADS [QRS DEFLECTION < 0.5 mV IN LIMB LEADS] MODERATE ST DEPRESSION [0.05+ mV ST DEPRESSION] COMPARED TO ECG 08/26/2022 09:39:03 NO SIGNIFICNAT CHANGES Electronically Signed On 11-19-2022 10:42:55 CDT by Micheline Salinas M.D.
[2022-11-19 04:09] LABS: Basophils Absolute Auto 0.1 K/mm3 (0.0-0.1); Basophils Percent Auto 0.8 % (0.2-1.2); Eosinophils Absolute Auto 0.1 K/mm3 (0-0.3); Eosinophils Percent Auto 0.9 % (0-4.4); Hematocrit 37.1 % (37.0-47.0); Hemoglobin 11.3 g/dL (12.0-15.0); Immature Granulocyte Absolute 0.04 K/mm3 (0.00-0.031); Immature Granulocyte Percent A 0.4 % (0-0.5); Lymphocytes Absolute Auto 1.28 K/mm3 (0.9-3.2); Lymphocytes Percent Auto 13.9 % (18.3-44.2); Mean Corpuscular HGB Conc 30.5 g/dl (32-36); Mean Corpuscular Hemoglobin 25.7 pg (26-34); Mean Corpuscular Volume 84.5 fl (80-100); Monocytes Absolute Auto 0.5 K/mm3 (0.1-0.6); Monocytes Percent Auto 5.8 % (2.6-8.5); Neutrophils Absolute Auto 7.2 K/mm3 (1.3-6.7); Neutrophils Percent Auto 78.2 % (45.5-73.1); Platelet Count Result 215 k/mm3 (150-375); Red Blood Count 4.39 M/mm3 (4.2-5.4); Red Cell Distribution Width 15.4 % (11.5-14.5); White Blood Count 9.2 K/mm3 (4.5-10.0)
[2022-11-19 04:21] LABS: Partial Thromboplastin Time 25.5 SECONDS (22.3-36.8)
[2022-11-19 04:23] LABS: Alanine Aminotransferase 25 U/L (6-35); Albumin Level 4.3 g/dL (3.5-5.1); Alkaline Phosphatase 125 U/L (38-126); Anion Gap 11 mmol/L (8-16); Aspartate Amino Transferase 30 U/L (14-36); Bilirubin,Total 0.7 mg/dL (0.2-1.3); Blood Urea Nitrogen 18 mg/dL (7-17); Calcium 8.7 mg/dL (8.4-10.2); Carbon Dioxide 19 mmol/L (22-30); Chloride 107 mmol/L (98-107); Estimated CRCL calculation 66 ml/min; Estimated Glomerular Filt Rate > 60; Glucose 292 mg/dL (65-110); Magnesium 1.9 mg/dL (1.6-2.3); Sodium 137 mmol/L (137-145)
[2022-11-19 04:33] LABS: NT Pro B Type Natriuretic Pept 5320 pg/mL (19.9-100)
[2022-11-19 04:41] LABS: Troponin I 0.046 ng/mL (0.000-0.034)
--- NOTE | 2022-11-19 05:21 | ED.GENADULT ---
HPI - General Adult General Chief complaint: Anxiety Stated complaint: SOB, UTI, LEFT FOOT PAIN Time Seen by Provider: 11/19/22 03:04 History of Present Illness HPI narrative: This is a 57-year-old female with history of coronary disease and congestive heart failure and history of noncompliance with medication presenting to ED for difficulty breathing. Patient says she has been waking up in the middle of the night gasping for air. This is been going on for 3 years but has gotten particularly worse over the last 2 days. She has also notes that she has swelling of her lower extremities. He also describes left-sided back pain that feels like [place] in [place] punching her in the back at 8/10 intensity and constant. She says this feels like when she has had fluid on her lungs in the past. There are no exacerbating or alleviating factors. Is not associated with vomiting diaphoresis or exertion. She denies fever chills or abdominal pain. Patient is also complaining of a wound to her right toe which has been there for several months is being managed by her intermediate. Related Data Home Medications Medication Instructions Recorded Confirmed insulin lispro 100 unit/mL 10 unit subcut TIDWM 03/30/22 08/25/22 subcutaneous solution (Admelog U-100 Insulin lispro) semaglutide 0.25 mg or 0.5 mg (2 1 mg subcut WEEKLY 03/30/22 08/25/22 mg/1.5 mL) subcutaneous pen injector (Ozempic) duloxetine 30 mg capsule,delayed 60 mg PO Q12H 06/15/22 08/25/22 release (Cymbalta) evolocumab 140 mg/mL subcutaneous 140 mg subcut [id number] 06/15/22 08/25/22 pen injector (Repatha SureClick) insulin glargine 100 unit/mL (3 10 unit subcut Q12H 08/25/22 08/25/22 mL) subcutaneous pen (Basaglar KwikPen U-100 Insulin) Allergies Allergy/AdvReac Type Severity Reaction Status Date / Time propofol Allergy Agitated Verified 08/25/22 12:09 [id number] Reductase AdvReac Intermediate MYALGIAS Verified 08/25/22 12:09 Inhibitor [facility] Past Medical History Medical History Anxiety Charcot's joint of foot in type 2 diabetes mellitus Of the right foot Chronic obstructive pulmonary disease Coronary artery disease Left anterior descending stent 01/2019. 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 Peripheral vascular disease due to secondary diabetes Suspected sleep apnea AHI 35 on apnea link on 06/16/2022. Surgical History Surgical History History of appendectomy History of section History of hysterectomy Due to cervical changes. History of tonsillectomy and adenoidectomy Hx of BKA Right 11/19/20 at [facility] Status post cholecystectomy Stented coronary artery X1 Family History Family History Sibling Diabetes mellitus Mother Heart failure Cardiomegaly Arthritis Atrial fibrillation Family history of osteoporosis Family history of Alzheimer's disease Hypertension Cardiomyopathy Acute myocardial infarction History of heart artery stent Congestive heart failure Daughter Anxiety Father Esophagus cancer Cancer of spinal column Social History Social History Social History: The patient is . The patient had 4 children and 1 of her daughters is now. She is disabled. She is a former smoker. She denies any alcohol marijuana or illicit drugs. Surrogate medical decision maker:
[2022-11-19 05:26] LABS: Appearance Urine Clear (Clear); Bacteria Urine 4+ /hpf; Bilirubin Urine Negative (Negative); Blood Urine Negative (Negative); Color Urine Yellow (Yellow); Glucose Urine UA 3+ mg/dL (Negative); Ketones Urine Negative (Negative); Leukocyte Esterase Ur Negative LEU/UL (Negative); Need Manual Microscopic Reviewed; Nitrate Urine Positive (Negative); Non Pathogenic Casts 0-2; Protein Urine 1+ mg/dL (Negative); RBC Urine 0-2 /hpf (0-2); Specific Grav Ur 1.024 (1.001-1.035); Squamous Epithelial Cell Urine None seen /hpf (Few); Urobilinogen Urine 0.2 mg/dL (<2.0); WBC Urine 21-50 /hpf; pH Urine 5.5 (5.0-9.0)
[2022-11-19 05:27] LABS: Add Urine Microscopic? YES
[2022-11-19] MEDS: FUROSEMIDE INJ 40 MG/4 ML VIAL IV PUSH (05:35)
--- NOTE | 2022-11-19 06:15 | ADMGEN ---
This patient, Tiff Vaughn, was admitted to IMU Room 201-01. Patient/family oriented to hospital policies and general routines including ID bracelet, bed and alarms, visiting hours, pain management, procedures, bathroom and other care routines, personal items, smoking policy, room service/diet, and visiting hours. Information on how to activate the Rapid Response Team has been discussed. Patient/Family are encouraged to report perceived risks to care and to ask questions if they do not understand what they are told or what they should do.
[2022-11-19 07:39] LABS: Glucose Point of Care 255 mg/dl (65-105)
[2022-11-19 08:27] LABS: Troponin I 0.051 ng/mL (0.000-0.034)
--- NOTE | 2022-11-19 11:24 | PM.IMHP ---
H&P: HPI History of Present Illness Date/Time: 11/19/22 11:24 Chief Complaint: shortness of breath Narrative: 87-year-old female with history of coronary artery disease and congestive heart failure with medication noncompliance presented to the ED earlier today with shortness of breath. Patient stated that she woke up in the middle of the night gasping for air. This is been ongoing since several years but got particularly worse over the past 2 days. She also reports increased swelling in her lower extremities she diet denies any chest pain. No abdominal pain nausea vomiting. Review of Systems Review of Systems: - CONSTITUTIONAL: Denies weight loss, fever and chills. - HEENT: Denies changes in vision and hearing - RESPIRATORY: Reports SOB and denies cough. - CV: Denies palpitations and CP. - GI: Denies abdominal pain, nausea, vomiting and diarrhea. - : Denies dysuria and urinary frequency. - MSK: Denies myalgia and joint pain. - SKIN: Denies rash and pruritus. - NEUROLOGICAL: Denies headache and syncope. - PSYCHIATRIC: Denies recent changes in mood. Denies anxiety and depression. [facility] Past Medical History Medical History Anxiety Charcot's joint of foot in type 2 diabetes mellitus Of the right foot Chronic obstructive pulmonary disease Coronary artery disease Left anterior descending stent 01/2019. 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 Peripheral vascular disease due to secondary diabetes Suspected sleep apnea AHI 35 on apnea link on 06/16/2022. Surgical History Surgical History History of appendectomy History of section History of hysterectomy Due to cervical changes. History of tonsillectomy and adenoidectomy Hx of BKA Right 11/19/20 at [facility] Status post cholecystectomy Stented coronary artery X1 Family History Family History Sibling Diabetes mellitus Mother Heart failure Cardiomegaly Arthritis Atrial fibrillation Family history of osteoporosis Family history of Alzheimer's disease Hypertension Cardiomyopathy Acute myocardial infarction History of heart artery stent Congestive heart failure Daughter Anxiety Father Esophagus cancer Cancer of spinal column Social History Social History Social History: The patient is . The patient had 4 children and 1 of her daughters is now. She is disabled. She is a former smoker. She denies any alcohol marijuana or illicit drugs. Surrogate medical decision maker: Jass Arciniega, son. Code status: Full code. Smoking packs per day: 1.5 Smoking cigarettes per day: 30.0 Years smoked: 20 Smoking pack-years: 30.00 Smoking status: Former smoker Tobacco type: cigarettes Additional smoking assessment comments: quit 2020 Alcohol intake: never Substance use: never Substance use type: marijuana and other Other substance usage details: edibles Last use: 08/08/22 Lack of Transportation: No Lack of Food: Never True Current Housing: Decline to Answer Concerned About Future Housing: Decline to Answer Difficulty Paying Gas/Electric Bills: Decline to Answer Difficulty Paying for Meds: Decline to Answer Currently Unemployed: Decline to Answer Education: Decline to Answer Difficulty w/ Childcare or Family Care: Decline to Answer Living arrangements: al
[2022-11-19 11:47] LABS: Glucose Point of Care 252 mg/dl (65-105)
[2022-11-19] MEDS: INSULIN GLARGINE (*BKC) 100 UNITS/ML 10 UNITS SUB-Q (12:32)
[2022-11-19] MEDS: INSULIN ASPART (*BKC) 100 UNITS/ML 10 UNITS SUB-Q (12:33)
[2022-11-19] MEDS: AMIODARONE HCL 200 MG TABLET 400 MG PO (12:37)
[2022-11-19] MEDS: EMPAGLIFLOZIN 10 MG TABLET PO (12:37)
[2022-11-19] MEDS: CLOPIDOGREL BISULFATE 75 MG TABLET PO (12:37)
[2022-11-19] MEDS: DULoxetine HCL 60 MG CAPSULE.DR PO ×2 (12:37→20:37)
[2022-11-19 12:38] LABS: Alveolar/Arterial O2 Gradient 59.7 mmHg; Base Excess ABG 0.6 mEq/l (+/-2.0); Fractional Inspired Oxygen 21 %; HCO3 ABG 22.8 mEq/l (22.0-26.0); Oxygen Content ABG 14.7 %vol (16.0-22.0); Oxygen Saturation ABG 91.9 % (95.0-100.0); PCO2 ABG 29.1 mmHg (35.0-45.0); PO2 ABG 55.2 mmHg (80.0-100.0); PO2 FiO2 Ratio Arterial Blood 2.63 %; Total Hemoglobin 11.6 g/dL (12.0-18.0)
[2022-11-19] MEDS: MIDODRINE HCL 2.5 MG TABLET 5 MG PO ×2 (12:38→20:37)
[2022-11-19] MEDS: PREGABALIN (*CRX) 50 MG CAPSULE 100 MG PO ×2 (12:40→20:37)
[2022-11-19 12:45] LABS: Device ROOM AIR; Site Drawn RIGHT BRACHIAL; pH ABG 7.512 (7.350-7.450)
[2022-11-19 15:39] LABS: Glucose Point of Care 64 mg/dl (65-105)
[2022-11-19 20:27] LABS: Glucose Point of Care 113 mg/dl (65-105)
[2022-11-19] MEDS: METOPROLOL SUCCINATE EXT REL 12.5 MG TABCR PO (20:36)
[2022-11-20] VITALS (15 sets, daily range): BP systolic 88–120; BP diastolic 54–68; PULSE 59–100; RESP 14–18; TEMP 36.1–36.8; O2SAT 95–100
[2022-11-20] MEDS: HYDROcodone/acetaminophen (*CRX) 5-325 MG TABLET 1 TAB PO ×3 (03:19→09:44)
[2022-11-20] MEDS: LEVOTHYROXINE SODIUM 50 MCG TABLET PO (05:22)
[2022-11-20 05:24] LABS: Basophils Absolute Auto 0.1 K/mm3 (0.0-0.1); Basophils Percent Auto 1.4 % (0.2-1.2); Eosinophils Absolute Auto 0.2 K/mm3 (0-0.3); Eosinophils Percent Auto 2.4 % (0-4.4); Hematocrit 34.2 % (37.0-47.0); Hemoglobin 10.3 g/dL (12.0-15.0); Immature Granulocyte Absolute 0.02 K/mm3 (0.00-0.031); Immature Granulocyte Percent A 0.3 % (0-0.5); Lymphocytes Absolute Auto 1.26 K/mm3 (0.9-3.2); Lymphocytes Percent Auto 20.1 % (18.3-44.2); Mean Corpuscular HGB Conc 30.1 g/dl (32-36); Mean Corpuscular Hemoglobin 25.8 pg (26-34); Mean Corpuscular Volume 85.5 fl (80-100); Mean Platelet Volume 11.1 fl (7.4-10.4); Monocytes Absolute Auto 0.5 K/mm3 (0.1-0.6); Monocytes Percent Auto 8.5 % (2.6-8.5); Neutrophils Absolute Auto 4.2 K/mm3 (1.3-6.7); Neutrophils Percent Auto 67.3 % (45.5-73.1); Platelet Count Result 205 k/mm3 (150-375); Red Cell Distribution Width 15.5 % (11.5-14.5); White Blood Count 6.3 K/mm3 (4.5-10.0)
[2022-11-20 05:31] LABS: Alanine Aminotransferase 20 U/L (6-35); Albumin Level 3.5 g/dL (3.5-5.1); Alkaline Phosphatase 91 U/L (38-126); Anion Gap 8 mmol/L (8-16); Aspartate Amino Transferase 27 U/L (14-36); Bilirubin,Total 0.6 mg/dL (0.2-1.3); Blood Urea Nitrogen 16 mg/dL (7-17); Calcium 8.1 mg/dL (8.4-10.2); Carbon Dioxide 24 mmol/L (22-30); Chloride 107 mmol/L (98-107); Estimated CRCL calculation 60 ml/min; Estimated Glomerular Filt Rate > 60; Glucose 146 mg/dL (65-110); Magnesium 1.7 mg/dL (1.6-2.3); Potassium 3.6 mmol/L (3.4-5.0); Sodium 139 mmol/L (137-145)
[2022-11-20 07:59] LABS: Glucose Point of Care 124 mg/dl (65-105)
[2022-11-20] MEDS: INSULIN ASPART (*BKC) 100 UNITS/ML 10 UNITS SUB-Q (09:41)
[2022-11-20] MEDS: DULoxetine HCL 60 MG CAPSULE.DR PO ×2 (09:42→20:42)
[2022-11-20] MEDS: PREGABALIN (*CRX) 50 MG CAPSULE 100 MG PO ×2 (09:42→20:42)
[2022-11-20] MEDS: SPIRONOLACTONE 25 MG TABLET PO (09:43)
[2022-11-20] MEDS: AMIODARONE HCL 200 MG TABLET 400 MG PO (09:43)
[2022-11-20] MEDS: EMPAGLIFLOZIN 10 MG TABLET PO (09:44)
[2022-11-20] MEDS: MIDODRINE HCL 2.5 MG TABLET 5 MG PO ×3 (09:44→17:33)
[2022-11-20] MEDS: ASPIRIN 81 MG ENTERIC TABLET PO (09:44)
[2022-11-20] MEDS: ENOXAPARIN 40 MG/0.4 ML SYRINGE SUB-Q (09:45)
[2022-11-20] MEDS: FUROSEMIDE INJ 40 MG/4 ML VIAL IV PUSH (09:45)
[2022-11-20] MEDS: CLOPIDOGREL BISULFATE 75 MG TABLET PO (09:45)
[2022-11-20] MEDS: INSULIN GLARGINE (*BKC) 100 UNITS/ML 10 UNITS SUB-Q ×2 (09:54→20:43)
[2022-11-20 11:41] LABS: Glucose Point of Care 98 mg/dl (65-105)
--- NOTE | 2022-11-20 12:59 | PM.IMPN ---
Progress Note: A&P Assessment and Plan (1) UTI (urinary tract infection): Code(s): N39.0 - Urinary tract infection, site not specified Status: Acute (2) Elevated troponin: Code(s): R77.8 - Other specified abnormalities of plasma proteins Status: Acute (3) Heart failure with reduced ejection fraction: Code(s): I50.20 - Unspecified systolic (congestive) heart failure Status: Acute (4) Suspected sleep apnea: Code(s): R29.818 - Other symptoms and signs involving the nervous system Status: Acute (5) Peripheral arterial disease: Code(s): I73.9 - Peripheral vascular disease, unspecified Status: Acute (6) Chronic obstructive pulmonary disease: Code(s): J44.9 - Chronic obstructive pulmonary disease, unspecified Status: Acute (7) Diabetes mellitus: Code(s): E11.9 - Type 2 diabetes mellitus without complications Status: Chronic (8) Below knee amputation: Code(s): S88.119A - Complete traumatic amputation at level between knee and ankle, unspecified lower leg, initial encounter Status: Acute Plan Tiff Vaughn is a 57 year old female who presented with shortness of breath. ? #? Shortness of breath: acute on chronic CHF. Chest x-ray with cardiomegaly with pulmonary vascular congestion. Troponin 0.046 BNP 5000 Received Lasix IV. Also has underlying COPD. Labs reviewed. Continue Lasix IV. Switch to oral Lasix # UTI: Receive ceftriaxone will continue same follow urine culture. urine culture with Enterobacter # multivessel coronary artery disease status post CABG x5 mitral valve repair left atrial appendage ligation 08/31/2022. # elevated troponin mild flat trajectory. # acute on chronic heart failure systolic: Chest x-ray with cardiomegaly with pulmonary vascular congestion. On Lasix at home with spironolactone. We changed to IV Lasix and diurese as tolerated. She has been unable to tolerate Entresto due to soft blood pressure in the past. BNP 5320 on admission. Previous level was in 1000 # Anxiety: Her anxiety likely plays a role in her shortness of breath as well. Continue alprazolam and duloxetine. # chronic obstructive pulmonary disease: No evidence of acute exacerbation at the time my evaluation. She feels that the nebulizers do help and she requests a prescription for nebulizer on discharge. # coronary artery disease: Continue dual antiplatelet therapy and beta-gisela. # peripheral artery disease: No acute issues. Status post right BKA # type 2 diabetes mellitus on insulin: Continue basal insulin. Initiate sliding scale insulin, Accu-Cheks, and hypoglycemic protocol. Adjust insulin dosing as needed # suspected sleep apnea: AHI was 35 on apnea link in June 2022 and she needs a formal outpatient sleep study however she states that she would never uses CPAP and she does not intend on having this sleep study done.? Unfortunately untreated sleep apnea may very well be playing a role in her recurrent hospitalizations. # DVT prophylaxis Lovenox Subjective Date/time seen: 11/20/22 12:59 Interval history: discussed nursing staff. No overnight events reported. feeling better today. Leg swelling has improved. Had some cough previously but not anymore. Labs were reviewed. Review of Systems Review of Systems: All systems reviewed & are unremarkable except as noted in HPI and below Exam Narrative: ? APPEARANCE: ? Patient appears chronically unwell, not in acute distress Head: atraumatic. normocephalic EYES:? EOMI, NOSE: Atraumatic NECK: Trachea midline RESPIRATORY: No increased rate of breathing, diminished breath sounds bilaterall CARDIOVASCyULAR:? Regular rate and rhythm 1+ pitting edema of the lower extremities status post right BKA ABDOMINAL: Non-distended, soft no guarding or rebound MUSCULOSKELETAl:? right BKA NEURO: somnolent. Moving 4/4 extremities SKIN::? black eschar on the right toe wit
[2022-11-20 17:06] LABS: Glucose Point of Care 114 mg/dl (65-105)
[2022-11-20 19:59] LABS: Glucose Point of Care 191 mg/dl (65-105)
[2022-11-20] MEDS: METOPROLOL SUCCINATE EXT REL 12.5 MG TABCR PO (20:43)
[2022-11-20] MEDS: ALPRAZolam (*CRX) 0.5 MG TABLET PO (20:51)
--- NOTE | 2022-11-20 22:28 | PC.NURSE ---
This patient, Tiff Vaughn, was transferred to [facility] on 11/20/22 at 2228. Personal belongings sent with patient. Report given to Stiven NUNES. Appropriate documentation sent with patient.
[2022-11-21] MEDS: HYDROcodone/acetaminophen (*CRX) 5-325 MG TABLET 1 TAB PO ×3 (02:25→22:59)
[2022-11-21] MEDS: CYCLOBENZAPRINE HCL 10 MG TABLET PO ×2 (03:49→22:59)
[2022-11-21] MEDS: LEVOTHYROXINE SODIUM 50 MCG TABLET PO (03:49)
[2022-11-21 05:47] VITALS: BP 114/69; PULSE 86; RESP 20; TEMP 36.8; O2SAT 94
[2022-11-21 06:10] LABS: Alanine Aminotransferase 18 U/L (6-35); Albumin Level 3.6 g/dL (3.5-5.1); Alkaline Phosphatase 92 U/L (38-126); Anion Gap 8 mmol/L (8-16); Aspartate Amino Transferase 20 U/L (14-36); Basophils Absolute Auto 0.1 K/mm3 (0.0-0.1); Basophils Percent Auto 1.2 % (0.2-1.2); Bilirubin,Total 0.4 mg/dL (0.2-1.3); Blood Urea Nitrogen 23 mg/dL (7-17); Calcium 7.8 mg/dL (8.4-10.2); Carbon Dioxide 24 mmol/L (22-30); Chloride 106 mmol/L (98-107); Eosinophils Absolute Auto 0.2 K/mm3 (0-0.3); Eosinophils Percent Auto 3.5 % (0-4.4); Estimated CRCL calculation 49 ml/min; Estimated Glomerular Filt Rate 51; Glucose 223 mg/dL (65-110); Hematocrit 33.3 % (37.0-47.0); Immature Granulocyte Absolute 0.02 K/mm3 (0.00-0.031); Immature Granulocyte Percent A 0.4 % (0-0.5); Lymphocytes Absolute Auto 1.43 K/mm3 (0.9-3.2); Magnesium 1.9 mg/dL (1.6-2.3); Mean Corpuscular Hemoglobin 25.7 pg (26-34); Mean Corpuscular Volume 85.6 fl (80-100); Mean Platelet Volume 11.8 fl (7.4-10.4); Monocytes Absolute Auto 0.4 K/mm3 (0.1-0.6); Neutrophils Absolute Auto 3.6 K/mm3 (1.3-6.7); Neutrophils Percent Auto 62.9 % (45.5-73.1); Platelet Count Result 230 k/mm3 (150-375); Potassium 3.2 mmol/L (3.4-5.0); Red Blood Count 3.89 M/mm3 (4.2-5.4); Red Cell Distribution Width 15.6 % (11.5-14.5); Sodium 138 mmol/L (137-145); White Blood Count 5.7 K/mm3 (4.5-10.0)
[2022-11-21 08:36] LABS: Glucose Point of Care 126 mg/dl (65-105)
[2022-11-21] MEDS: INSULIN GLARGINE (*BKC) 100 UNITS/ML 10 UNITS SUB-Q ×2 (10:01→20:14)
[2022-11-21] MEDS: MIDODRINE HCL 2.5 MG TABLET 5 MG PO ×3 (10:06→17:15)
[2022-11-21] MEDS: DULoxetine HCL 60 MG CAPSULE.DR PO ×2 (10:07→20:12)
[2022-11-21] MEDS: FUROSEMIDE 40 MG TABLET PO (10:07)
[2022-11-21] MEDS: PREGABALIN (*CRX) 50 MG CAPSULE 100 MG PO ×2 (10:07→20:11)
[2022-11-21] MEDS: AMIODARONE HCL 200 MG TABLET 400 MG PO (10:07)
[2022-11-21] MEDS: CLOPIDOGREL BISULFATE 75 MG TABLET PO (10:07)
[2022-11-21] MEDS: EMPAGLIFLOZIN 10 MG TABLET PO (10:07)
[2022-11-21] MEDS: SPIRONOLACTONE 25 MG TABLET PO (10:08)
[2022-11-21] MEDS: ENOXAPARIN 40 MG/0.4 ML SYRINGE SUB-Q (10:08)
[2022-11-21 12:02] LABS: Glucose Point of Care 150 mg/dl (65-105)
[2022-11-21] MEDS: ASPIRIN 81 MG ENTERIC TABLET PO (12:36)
[2022-11-21] MEDS: POTASSIUM CHLORIDE INJ 40 MEQ in SODIUM CHLORIDE 0.9% IV 500 ML 130 MEQ IVPB (13:29)
[2022-11-21] MEDS: CEFEPIME 1 GM/NS 50 ML 1 GM/50 ML BAG IVPB (13:29)
[2022-11-21 13:50] VITALS: BP 108/62; PULSE 91; RESP 12; TEMP 36.6; O2SAT 93
--- NOTE | 2022-11-21 16:32 | PM.IMPN ---
Progress Note: A&P Assessment and Plan (1) UTI (urinary tract infection): Code(s): N39.0 - Urinary tract infection, site not specified Status: Acute (2) Elevated troponin: Code(s): R77.8 - Other specified abnormalities of plasma proteins Status: Acute (3) Heart failure with reduced ejection fraction: Code(s): I50.20 - Unspecified systolic (congestive) heart failure Status: Acute (4) Suspected sleep apnea: Code(s): R29.818 - Other symptoms and signs involving the nervous system Status: Acute (5) Peripheral arterial disease: Code(s): I73.9 - Peripheral vascular disease, unspecified Status: Acute (6) Chronic obstructive pulmonary disease: Code(s): J44.9 - Chronic obstructive pulmonary disease, unspecified Status: Acute (7) Diabetes mellitus: Code(s): E11.9 - Type 2 diabetes mellitus without complications Status: Chronic (8) Below knee amputation: Code(s): S88.119A - Complete traumatic amputation at level between knee and ankle, unspecified lower leg, initial encounter Status: Acute Plan Tiff Vaughn is a 57 year old female who presented with shortness of breath. ? #? Shortness of breath: acute on chronic CHF. Chest x-ray with cardiomegaly with pulmonary vascular congestion. Troponin 0.046 BNP 5000 Received Lasix IV. Also has underlying COPD. Labs reviewed. Continue Lasix IV. Switch to oral Lasix. cxr with persistent mild left effusion # UTI: Receive ceftriaxone will continue same follow urine culture. urine culture with Enterobacter. Resistant to ceftriaxone was switched to cefepime. # multivessel coronary artery disease status post CABG x5 mitral valve repair left atrial appendage ligation 08/31/2022. # elevated troponin mild flat trajectory. # acute on chronic heart failure systolic: Chest x-ray with cardiomegaly with pulmonary vascular congestion. On Lasix at home with spironolactone. We changed to IV Lasix and diurese as tolerated. She has been unable to tolerate Entresto due to soft blood pressure in the past. BNP 5320 on admission. Previous level was in 1000 # Anxiety: Her anxiety likely plays a role in her shortness of breath as well. Continue alprazolam and duloxetine. # chronic obstructive pulmonary disease: No evidence of acute exacerbation at the time my evaluation. She feels that the nebulizers do help and she requests a prescription for nebulizer on discharge. # coronary artery disease: Continue dual antiplatelet therapy and beta-gisela. # peripheral artery disease: No acute issues. Status post right BKA # type 2 diabetes mellitus on insulin: Continue basal insulin. Initiate sliding scale insulin, Accu-Cheks, and hypoglycemic protocol. Adjust insulin dosing as needed # suspected sleep apnea: AHI was 35 on apnea link in June 2022 and she needs a formal outpatient sleep study however she states that she would never uses CPAP and she does not intend on having this sleep study done.? Unfortunately untreated sleep apnea may very well be playing a role in her recurrent hospitalizations. # DVT prophylaxis Lovenox Subjective Date/time seen: 11/21/22 16:32 Interval history: no new complaints. no fever, chills, sob, chest pain. she refuses to take oral potassium. no abdominal pain, nausea, vomiting. Review of Systems Review of Systems: All systems reviewed & are unremarkable except as noted in HPI and below Exam Narrative: ? APPEARANCE: ? Patient appears chronically unwell, not in acute distress Head: atraumatic. normocephalic EYES:? EOMI, NOSE: Atraumatic NECK: Trachea midline RESPIRATORY: No increased rate of breathing, diminished breath sounds bilaterall CARDIOVASCyULAR:? Regular rate and rhythm 1+ pitting edema of the lower extremities status post right BKA ABDOMINAL: Non-distended, soft no guarding or rebound MUSCULOSKELETAl:? right BKA NEURO: somnolent. Moving 4/4 extre
[2022-11-21 17:06] LABS: Glucose Point of Care 94 mg/dl (65-105)
[2022-11-21] MEDS: INSULIN ASPART (*BKC) 100 UNITS/ML 10 UNITS SUB-Q (17:16)
[2022-11-21 19:05] VITALS: BP 107/59; PULSE 88; RESP 20; TEMP 35.8; O2SAT 93
[2022-11-21] MEDS: METOPROLOL SUCCINATE EXT REL 12.5 MG TABCR PO (20:11)
[2022-11-21 20:31] LABS: Glucose Point of Care 146 mg/dl (65-105)
[2022-11-22 03:13] VITALS: BP 100/54; PULSE 86; RESP 20; TEMP 36.4; O2SAT 96
[2022-11-22] MEDS: LEVOTHYROXINE SODIUM 50 MCG TABLET PO (06:08)
[2022-11-22 06:42] LABS: Basophils Absolute Auto 0.1 K/mm3 (0.0-0.1); Basophils Percent Auto 0.7 % (0.2-1.2); Eosinophils Absolute Auto 0.1 K/mm3 (0-0.3); Eosinophils Percent Auto 2.1 % (0-4.4); Hemoglobin 10.4 g/dL (12.0-15.0); Immature Granulocyte Absolute 0.03 K/mm3 (0.00-0.031); Immature Granulocyte Percent A 0.4 % (0-0.5); Lymphocytes Absolute Auto 1.78 K/mm3 (0.9-3.2); Lymphocytes Percent Auto 26.7 % (18.3-44.2); Mean Corpuscular HGB Conc 30.6 g/dl (32-36); Mean Corpuscular Hemoglobin 25.6 pg (26-34); Mean Corpuscular Volume 83.7 fl (80-100); Mean Platelet Volume 11.3 fl (7.4-10.4); Monocytes Absolute Auto 0.5 K/mm3 (0.1-0.6); Monocytes Percent Auto 6.7 % (2.6-8.5); Neutrophils Absolute Auto 4.2 K/mm3 (1.3-6.7); Neutrophils Percent Auto 63.4 % (45.5-73.1); Platelet Count Result 246 k/mm3 (150-375); Red Blood Count 4.06 M/mm3 (4.2-5.4); Red Cell Distribution Width 15.4 % (11.5-14.5); White Blood Count 6.7 K/mm3 (4.5-10.0)
[2022-11-22 06:52] LABS: Alanine Aminotransferase 16 U/L (6-35); Albumin Level 3.9 g/dL (3.5-5.1); Alkaline Phosphatase 102 U/L (38-126); Anion Gap 8 mmol/L (8-16); Aspartate Amino Transferase 21 U/L (14-36); Bilirubin,Total 0.5 mg/dL (0.2-1.3); Blood Urea Nitrogen 23 mg/dL (7-17); Calcium 8.1 mg/dL (8.4-10.2); Carbon Dioxide 26 mmol/L (22-30); Chloride 106 mmol/L (98-107); Estimated CRCL calculation 54 ml/min; Estimated Glomerular Filt Rate 57; Glucose 65 mg/dL (65-110); Potassium 3.6 mmol/L (3.4-5.0); Sodium 140 mmol/L (137-145)
[2022-11-22 08:00] VITALS: PULSE 90; RESP 18; O2SAT 96
[2022-11-22 08:08] VITALS: PULSE 86
[2022-11-22 08:08] LABS: Glucose Point of Care 57 mg/dl (65-105)
[2022-11-22] MEDS: AMIODARONE HCL 200 MG TABLET 400 MG PO (08:08)
[2022-11-22] MEDS: DULoxetine HCL 60 MG CAPSULE.DR PO ×2 (08:08→20:03)
[2022-11-22] MEDS: SPIRONOLACTONE 25 MG TABLET PO (08:08)
[2022-11-22] MEDS: EMPAGLIFLOZIN 10 MG TABLET PO (08:08)
[2022-11-22] MEDS: FUROSEMIDE 40 MG TABLET PO (08:08)
[2022-11-22] MEDS: CLOPIDOGREL BISULFATE 75 MG TABLET PO (08:08)
[2022-11-22] MEDS: MIDODRINE HCL 2.5 MG TABLET 5 MG PO ×3 (08:08→17:58)
[2022-11-22] MEDS: ASPIRIN 81 MG ENTERIC TABLET PO (08:08)
[2022-11-22] MEDS: ENOXAPARIN 40 MG/0.4 ML SYRINGE SUB-Q (08:09)
[2022-11-22 09:00] LABS: Glucose Point of Care 112 mg/dl (65-105)
[2022-11-22 11:56] LABS: Glucose Point of Care 280 mg/dl (65-105)
[2022-11-22 12:00] VITALS: BP 100/66; PULSE 90; RESP 18; TEMP 35.7; O2SAT 96
[2022-11-22] MEDS: INSULIN ASPART (*BKC) 100 UNITS/ML SUB-Q ×2 (12:09→17:59)
[2022-11-22] MEDS: PREGABALIN (*CRX) 50 MG CAPSULE 100 MG PO ×2 (12:12→20:03)
--- NOTE | 2022-11-22 12:26 | PM.IMPN ---
Progress Note: A&P Assessment and Plan (1) UTI (urinary tract infection): Code(s): N39.0 - Urinary tract infection, site not specified Status: Acute (2) Elevated troponin: Code(s): R77.8 - Other specified abnormalities of plasma proteins Status: Acute (3) Heart failure with reduced ejection fraction: Code(s): I50.20 - Unspecified systolic (congestive) heart failure Status: Acute (4) Suspected sleep apnea: Code(s): R29.818 - Other symptoms and signs involving the nervous system Status: Acute (5) Peripheral arterial disease: Code(s): I73.9 - Peripheral vascular disease, unspecified Status: Acute (6) Chronic obstructive pulmonary disease: Code(s): J44.9 - Chronic obstructive pulmonary disease, unspecified Status: Acute (7) Diabetes mellitus: Code(s): E11.9 - Type 2 diabetes mellitus without complications Status: Chronic (8) Below knee amputation: Code(s): S88.119A - Complete traumatic amputation at level between knee and ankle, unspecified lower leg, initial encounter Status: Acute Plan Tiff Vaughn is a 57 year old female who presented with shortness of breath. ? #? Shortness of breath: acute on chronic CHF. Chest x-ray with cardiomegaly with pulmonary vascular congestion. Troponin 0.046 BNP 5000 Received Lasix IV. Also has underlying COPD. Labs reviewed. Continue Lasix IV. Switch to oral Lasix. cxr with persistent mild left effusion # UTI: Receive ceftriaxone will continue same follow urine culture. urine culture with Enterobacter. Resistant to ceftriaxone was switched to cefepime. will switch to oral in am at [facility] # multivessel coronary artery disease status post CABG x5 mitral valve repair left atrial appendage ligation 08/31/2022. # elevated troponin mild flat trajectory. # acute on chronic heart failure systolic: Chest x-ray with cardiomegaly with pulmonary vascular congestion. On Lasix at home with spironolactone. We changed to IV Lasix and diurese as tolerated. She has been unable to tolerate Entresto due to soft blood pressure in the past. BNP 5320 on admission. Previous level was in 1000 # Anxiety: Her anxiety likely plays a role in her shortness of breath as well. Continue alprazolam and duloxetine. # chronic obstructive pulmonary disease: No evidence of acute exacerbation at the time my evaluation. She feels that the nebulizers do help and she requests a prescription for nebulizer on discharge. # coronary artery disease: Continue dual antiplatelet therapy and beta-gisela. # peripheral artery disease: No acute issues. Status post right BKA # type 2 diabetes mellitus on insulin: Continue basal insulin. Initiate sliding scale insulin, Accu-Cheks, and hypoglycemic protocol. Adjust insulin dosing as needed # suspected sleep apnea: AHI was 35 on apnea link in June 2022 and she needs a formal outpatient sleep study however she states that she would never uses CPAP and she does not intend on having this sleep study done.? Unfortunately untreated sleep apnea may very well be playing a role in her recurrent hospitalizations. # DVT prophylaxis Lovenox Subjective Date/time seen: 11/22/22 12:26 Interval history: no overnight events, no sob, chest pain. no abdominal pain. no nausea, vomiting. tolerating iv antibiotics. Review of Systems Review of Systems: All systems reviewed & are unremarkable except as noted in HPI and below Exam Narrative: APPEARANCE: ? Patient appears chronically unwell, not in acute distress Head: atraumatic. normocephalic EYES:? EOMI, NOSE: Atraumatic NECK: Trachea midline RESPIRATORY: No increased rate of breathing, diminished breath sounds bilaterall CARDIOVASCyULAR:? Regular rate and rhythm trace edema of the lower extremities status post right BKA ABDOMINAL: Non-distended, soft no guarding or rebound MUSCULOSKELETAl:? right BKA NEURO: somnolent. Movi
[2022-11-22] MEDS: CEFEPIME 1 GM/NS 50 ML 1 GM/50 ML BAG IVPB (14:51)
[2022-11-22 16:56] LABS: Glucose Point of Care 111 mg/dl (65-105)
[2022-11-22 20:01] VITALS: BP 104/55; PULSE 71; RESP 20; TEMP 36.1; O2SAT 95
[2022-11-22 20:03] VITALS: PULSE 86
[2022-11-22] MEDS: METOPROLOL SUCCINATE EXT REL 12.5 MG TABCR PO (20:03)
[2022-11-22] MEDS: INSULIN GLARGINE (*BKC) 100 UNITS/ML 7 UNITS SUB-Q (20:16)
[2022-11-22 20:51] LABS: Glucose Point of Care 120 mg/dl (65-105)
[2022-11-23 05:33] VITALS: BP 101/56; PULSE 88; RESP 18; TEMP 36.4; O2SAT 94
[2022-11-23] MEDS: LEVOTHYROXINE SODIUM 50 MCG TABLET PO (06:11)
[2022-11-23 08:00] VITALS: BP 114/60; PULSE 85; RESP 18; TEMP 36.4; O2SAT 93
[2022-11-23] MEDS: INSULIN ASPART (*BKC) 100 UNITS/ML SUB-Q (08:54)
[2022-11-23 08:55] VITALS: PULSE 88
[2022-11-23] MEDS: FUROSEMIDE 40 MG TABLET PO (08:55)
[2022-11-23] MEDS: AMIODARONE HCL 200 MG TABLET 400 MG PO (08:55)
[2022-11-23] MEDS: ASPIRIN 81 MG ENTERIC TABLET PO (08:55)
[2022-11-23] MEDS: DULoxetine HCL 60 MG CAPSULE.DR PO (08:55)
[2022-11-23] MEDS: PREGABALIN (*CRX) 50 MG CAPSULE 100 MG PO (08:55)
[2022-11-23] MEDS: CLOPIDOGREL BISULFATE 75 MG TABLET PO (08:56)
[2022-11-23] MEDS: MIDODRINE HCL 2.5 MG TABLET 5 MG PO (08:56)
[2022-11-23] MEDS: EMPAGLIFLOZIN 10 MG TABLET PO (08:56)
[2022-11-23] MEDS: SPIRONOLACTONE 25 MG TABLET PO (08:56)
[2022-11-23 09:14] LABS: Glucose Point of Care 118 mg/dl (65-105)
[2022-11-23 09:18] LABS: Basophils Percent Auto 0.6 % (0.2-1.2); Eosinophils Absolute Auto 0.2 K/mm3 (0-0.3); Eosinophils Percent Auto 3.2 % (0-4.4); Hematocrit 37.6 % (37.0-47.0); Hemoglobin 11.2 g/dL (12.0-15.0); Immature Granulocyte Absolute 0.02 K/mm3 (0.00-0.031); Immature Granulocyte Percent A 0.3 % (0-0.5); Lymphocytes Absolute Auto 2.27 K/mm3 (0.9-3.2); Lymphocytes Percent Auto 34.3 % (18.3-44.2); Mean Corpuscular HGB Conc 29.8 g/dl (32-36); Mean Corpuscular Hemoglobin 25.4 pg (26-34); Mean Corpuscular Volume 85.3 fl (80-100); Mean Platelet Volume 11.1 fl (7.4-10.4); Monocytes Absolute Auto 0.4 K/mm3 (0.1-0.6); Monocytes Percent Auto 5.6 % (2.6-8.5); Neutrophils Absolute Auto 3.7 K/mm3 (1.3-6.7); Platelet Count Result 260 k/mm3 (150-375); Red Blood Count 4.41 M/mm3 (4.2-5.4); Red Cell Distribution Width 15.3 % (11.5-14.5); White Blood Count 6.6 K/mm3 (4.5-10.0)
[2022-11-23 09:29] LABS: Alanine Aminotransferase 15 U/L (6-35); Alkaline Phosphatase 102 U/L (38-126); Anion Gap 5 mmol/L (8-16); Aspartate Amino Transferase 22 U/L (14-36); Bilirubin,Total 0.6 mg/dL (0.2-1.3); Blood Urea Nitrogen 19 mg/dL (7-17); Calcium 8.5 mg/dL (8.4-10.2); Carbon Dioxide 33 mmol/L (22-30); Chloride 102 mmol/L (98-107); Estimated CRCL calculation 54 ml/min; Estimated Glomerular Filt Rate 57; Glucose 109 mg/dL (65-110); Potassium 3.8 mmol/L (3.4-5.0); Sodium 140 mmol/L (137-145)
[2022-11-23 10:13] LABS: Platelet Estimate Adequate (Adequate); Schistocytes None Seen (NORMAL)
[2022-11-23 10:14] LABS: Anisocytosis 1+ (NORMAL); Hypochromasia 1+ (NORMAL)
--- NOTE | 2022-11-23 11:11 | PM.DS ---
DS: Admitting Diagnosis Discharge Date 11/23/2022 Admitting Diagnosis CHF/UTI DS: Discharge Diagnosis Discharge Diagnosis (1) UTI (urinary tract infection): Code(s): N39.0 - Urinary tract infection, site not specified Status: Acute (2) Elevated troponin: Code(s): R77.8 - Other specified abnormalities of plasma proteins Status: Acute (3) Heart failure with reduced ejection fraction: Code(s): I50.20 - Unspecified systolic (congestive) heart failure Status: Acute (4) Suspected sleep apnea: Code(s): R29.818 - Other symptoms and signs involving the nervous system Status: Acute (5) Peripheral arterial disease: Code(s): I73.9 - Peripheral vascular disease, unspecified Status: Acute (6) Chronic obstructive pulmonary disease: Code(s): J44.9 - Chronic obstructive pulmonary disease, unspecified Status: Acute (7) Diabetes mellitus: Code(s): E11.9 - Type 2 diabetes mellitus without complications Status: Chronic (8) Below knee amputation: Code(s): S88.119A - Complete traumatic amputation at level between knee and ankle, unspecified lower leg, initial encounter Status: Acute DS: Summary Hospital Course Hospital Course: Tiff Vaughn is a 57 year old female who presented with shortness of breath. ? #? Shortness of breath: acute on chronic CHF.? Chest x-ray with cardiomegaly with pulmonary vascular congestion.? Troponin 0.046 BNP 5000 Received Lasix IV. Also has underlying COPD.? Labs reviewed.? Continue Lasix IV.? Switch to oral Lasix. cxr with persistent mild left effusion # UTI:? Receive ceftriaxone will continue same follow urine culture. ? urine culture with ? Enterobacter.? Resistant to ceftriaxone was switched to cefepime. Switched to Bactrim for 5 more days # multivessel coronary artery disease status post CABG x5 mitral valve repair left atrial appendage ligation 08/31/2022. # elevated troponin mild flat trajectory. # acute on chronic heart failure systolic:? Chest x-ray with cardiomegaly with pulmonary vascular congestion.? On Lasix at home with spironolactone.? We changed to IV Lasix and diurese as tolerated.? She has been unable to tolerate Entresto due to soft blood pressure in the past.? BNP 5320 on admission.? Previous level was in 1000 # Anxiety: Her anxiety likely plays a role in her shortness of breath as well. Continue alprazolam and duloxetine. # chronic obstructive pulmonary disease: No evidence of acute exacerbation at the time my evaluation. She feels that the nebulizers do help and she requests a prescription for nebulizer on discharge. # coronary artery disease: Continue dual antiplatelet therapy and beta-gisela. # peripheral artery disease: No acute issues. Status post right BKA # type 2 diabetes mellitus on insulin: Continue basal insulin. Initiate sliding scale insulin, Accu-Cheks, and hypoglycemic protocol. Adjust insulin dosing as needed # suspected sleep apnea: AHI was 35 on apnea link in June 2022 and she needs a formal outpatient sleep study however she states that she would never uses CPAP and she does not intend on having this sleep study done.? Unfortunately untreated sleep apnea may very well be playing a role in her recurrent hospitalizations. # DVT prophylaxis Lovenox Time Spent with Patient Time attestation: Total time spent providing and/or coordinating discharge services: 45 minutes Exam Narrative: APPEARANCE: ? Patient appears chronically unwell, not in acute distress Head: atraumatic. normocephalic EYES:? EOMI, NOSE: Atraumatic NECK: Trachea midline RESPIRATORY: No increased rate of breathing, diminished breath sounds bilaterall CARDIOVASCyULAR:? Regular rate and rhythm trace edema of the lower extremities status post right BKA ABDOMINAL: Non-distended, soft no guarding or rebound MUSCULOSKELETAl:? right BKA NEURO: somnolent. Moving 4/4 extremities SKIN::? black esch
--- NOTE | 2022-11-23 14:00 | PCCCNOTE ---
On 11/23/22, the student, [Lyndsay Delaney ], provided care and [facility]. I have reviewed the student's documentation and agree with the findings.
== END 2022-11-23 13:20 | disposition home health service (06) | DRG 689 ==
LOC: ANHED 05:33 → ANHIMU 07:28 → ANH2MED 11-20 22:30
PROVIDERS: Admitting Provider Internal Medicine; Emergency Provider Emergency Medicine; PCP Emergency Medicine; Visit Provider Internal Medicine
DX: N39.0 Urinary tract infection, site not specified (principal); I50.23 Acute on chronic systolic (congestive) heart failure; Z16.39 Resistance to other specified antimicrobial drug; I73.9 Peripheral vascular disease, unspecified; B96.89 Other specified bacterial agents as the cause of diseases classified elsewhere; I25.10 Atherosclerotic heart disease of native coronary artery without angina pectoris; F41.9 Anxiety disorder, unspecified; G47.30 Sleep apnea, unspecified; J44.9 Chronic obstructive pulmonary disease, unspecified; E11.610 Type 2 diabetes mellitus with diabetic neuropathic arthropathy; E11.42 Type 2 diabetes mellitus with diabetic polyneuropathy; E11.51 Type 2 diabetes mellitus with diabetic peripheral angiopathy without gangrene; Z95.1 Presence of aortocoronary bypass graft; Z91.148 Patient's other noncompliance with medication regimen for other reason; Z90.49 Acquired absence of other specified parts of digestive tract; Z90.710 Acquired absence of both cervix and uterus; Z95.5 Presence of coronary angioplasty implant and graft; Z89.511 Acquired absence of right leg below knee; Z87.891 Personal history of nicotine dependence; Z79.82 Long term (current) use of aspirin; Z79.4 Long term (current) use of insulin
CPT/HCPCS: 36415; 36600; 71045; 80053; 81001; 82805; 82948; 83036; 83735; 83880; 84484; 85025; 85610; 85730; 87077; 87086; 87186; 93005; 96365; 96366; 96367; 96372; 96375; 96376; 97161; 97165; 99285; A9270; G0378; J0692; J0696; J1650; J1815; J1940; J3480; J7040

== ENCOUNTER 2022-12-08 03:31 | Observation (INO) | payer MEDICARE, MEDICAID, SELFPAY ==
[2022-12-08] VITALS (12 sets, daily range): BP systolic 127–140; BP diastolic 61–99; PULSE 68–109; RESP 13–20; TEMP 36.1–36.4; O2SAT 93–98; BMI 27.8
--- NOTE | ~2022-12-08 | XR_ITS ---
EXAMINATION: XR chest 1V portable DATE: 12/08/2022 03:55 INDICATION: Shortness of breath. TECHNIQUE: A single frontal view of the chest was obtained. COMPARISON: Chest single view 11/21/2022, chest CT 12/08/2022 FINDINGS: There is an interstitial pattern in the lungs, consistent with pulmonary edema. There are d ependent airspace opacities, likely atelectasis. There are moderate-sized pleural effusions. No pneum othorax. Cardiomegaly is noted. There are changes of coronary bypass grafting and mitral valve replac ement. There is electronic implant in left anterior chest wall. There is a closure device at left atr ial appendage. There is an old fracture deformity of proximal left humerus. IMPRESSION: 1. Mild pulmonary edema. 2. Moderate-sized pleural effusions. 3. Cardiomegaly. Reviewed, dictated and finalized at location A.
--- NOTE | ~2022-12-08 | CT_ITS ---
EXAMINATION: CTA chest PE protocol DATE: 12/08/2022 05:26 INDICATION: Rib pain. Pleuritic chest pain. TECHNIQUE: Computed tomography angiography (CTA) of the chest was performed with 100 mL Omnipaque-350 intravenous contrast timed to evaluate the pulmonary arteries. Coronal maximum intensity projection 3D-reconstructions were created by the technologist. Automated exposure control and iterative reconst ruction technique were employed. The dose-length product was 564.30 mGy-cm. COMPARISON: Chest CT 07/31/2022, chest 2 views 08/22/2022 FINDINGS: There is smooth septal thickening in the lungs, consistent with pulmonary edema. There is a moderate-sized pleural effusions. There is atelectasis bilaterally with a dependent predominance. Ca rdiomegaly is noted. There are changes of mitral valve replacement. There are coronary artery calcifi cations. There are changes of coronary artery bypass grafting. There is mild mediastinal and bilatera l hilar lymphadenopathy. There is no pulmonary embolus. There are changes of cholecystectomy. There i s electronic implant in left anterior chest wall. There is an old healed fracture deformity of proxim al left humerus. There is mild thoracic spondylosis. There is a chronic burst fracture of L1 with arnol nges of vertebroplasty. Partially visualized is a chronic burst fracture of L2. There are old healed bilateral rib fractures. Fractures of left fourth-sixth ribs are new from 07/31/2022. IMPRESSION: 1. No pulmonary embolus. 2. Mild pulmonary edema. 3. Moderate-sized pleural effusions. 4. Cardiomegaly. 5. Mild mediastinal and bilateral hilar lymphadenopathy, likely reactive. 6. Age-indeterminate left fourth-sixth rib fractures, new from 07/31/22. Reviewed, dictated and finalized at location A.
--- NOTE | 2022-12-08 03:31 | ECG_ITS ---
Measurements Intervals [place] Rate: 104 P: 8 [place]: 197 QRS: -1 QRSD: 102 T: 81 QT: 374 QTc: 494 Interpretive Statements SINUS TACHYCARDIA WITH OCCASIONAL VENTRICULAR PREMATURE COMPLEXES NONSPECIFIC T-WAVE ABNORMALITY ABNORMAL ECG COMPARED TO ECG 11/19/2022 03:05:41 NO SIGNIFICANT CHANGES Electronically Signed On 12-08-2022 14:40:38 CDT by Sunny Burden M.D.
--- NOTE | 2022-12-08 03:39 | ED.BACK ---
HPI - Back Pain/Injury General Chief Complaint: Back Pain/Injury Stated Complaint: rib/back pain Time Seen by Provider: 12/08/22 03:31 Source: patient, EMS and RN notes reviewed Mode of arrival: EMS Limitations: no limitations History of Present Illness HPI Narrative: This is a 57 year old female with historyo DM, CAD s/p CABG 3 months ago who presents via EMS for evaluation of upper back pain. Patient states she has been having pain for 4 days . She states both of her lungs hurt , and it is worse with breathing. She has not been taking any thing for pain. She reports cough with yellow phlegm. She is unsure of fever. This pain is causing shortness of breath. She denies nausea or vomiting. She had CABG in August at [facility] and she was released from detention 3 weeks ago. She denies chest pain or abdominal pain Related Data Home Medications Medication Instructions Recorded Confirmed insulin lispro 100 unit/mL 10 unit subcut TIDWM 03/30/22 11/19/22 subcutaneous solution (Admelog U-100 Insulin lispro) semaglutide 0.25 mg or 0.5 mg (2 1 mg subcut WEEKLY 03/30/22 11/19/22 mg/1.5 mL) subcutaneous pen injector (Ozempic) duloxetine 30 mg capsule,delayed 60 mg PO Q12H 06/15/22 11/19/22 release (Cymbalta) evolocumab 140 mg/mL subcutaneous 140 mg subcut [id number] 06/15/22 11/19/22 pen injector (Repatha SureClick) insulin glargine 100 unit/mL (3 10 unit subcut Q12H 08/25/22 11/19/22 mL) subcutaneous pen (Basaglar KwikPen U-100 Insulin) amiodarone 200 mg tablet 400 mg PO DAILY 11/19/22 11/19/22 cyclobenzaprine 10 mg tablet 10 mg PO TID PRN Muscle Spasm 11/19/22 11/19/22 levothyroxine 50 mcg tablet 50 mcg PO DAILY 11/19/22 11/19/22 midodrine 5 mg tablet 5 mg PO TID 11/19/22 11/19/22 spironolactone 25 mg tablet 25 mg PO DAILY 11/19/22 11/19/22 Allergies Allergy/AdvReac Type Severity Reaction Status Date / Time methantheline Allergy Unknown Verified 12/08/22 04:14 propofol Allergy Agitated Verified 12/08/22 04:14 [id number]-[id number]-PcR Reductase AdvReac Intermediate MYALGIAS Verified 12/08/22 04:14 Inhibitor Review of Systems Constitutional: Constitutional: Denies weakness Cardiovascular: Cardiovascular: Denies syncope, Denies rapid heart rate, Denies irregular heart rhythm, Denies leg edema and Denies dyspnea Respiratory: Respiratory: Denies chest congestion, Denies hemoptysis, Denies excessive phlegm production and Reports dyspnea Gastrointestinal: Gastrointestinal: Denies abdominal pain, Denies hematochezia, Denies diarrhea and Denies vomiting Genitourinary: Genitourinary: Denies hematuria and Denies dysuria Musculoskeletal: Musculoskeletal: Reports back pain, Denies joint swelling, Denies loss of height and Denies muscle weakness Neurologic: Denies syncope, Denies focal weakness and Denies weakness [facility] Past Medical History Medical History Anxiety Charcot's joint of foot in type 2 diabetes mellitus Of the right foot Chronic obstructive pulmonary disease Coronary artery disease Left anterior descending stent 01/2019. 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 Peripheral vascular disease due to secondary diabetes Suspected sleep apnea AHI 35 on apnea link on 06/16/2022. Surgical History Surgical History History of appendectomy History of section History of hysterectomy Due to cervical changes. History of tonsillectomy and adenoidectomy Hx of BKA Right 11/19/20 at [facility]
[2022-12-08 04:17] LABS: Basophils Absolute Auto 0.1 K/mm3 (0.0-0.1); Basophils Percent Auto 0.7 % (0.2-1.2); Eosinophils Absolute Auto 0.2 K/mm3 (0-0.3); Eosinophils Percent Auto 1.7 % (0-4.4); Hematocrit 34.4 % (37.0-47.0); Hemoglobin 10.6 g/dL (12.0-15.0); Immature Granulocyte Absolute 0.03 K/mm3 (0.00-0.031); Immature Granulocyte Percent A 0.3 % (0-0.5); Lymphocytes Absolute Auto 2.18 K/mm3 (0.9-3.2); Lymphocytes Percent Auto 24.6 % (18.3-44.2); Mean Corpuscular HGB Conc 30.8 g/dl (32-36); Mean Corpuscular Hemoglobin 24.8 pg (26-34); Mean Corpuscular Volume 80.4 fl (80-100); Mean Platelet Volume 11.3 fl (7.4-10.4); Monocytes Absolute Auto 0.5 K/mm3 (0.1-0.6); Monocytes Percent Auto 5.4 % (2.6-8.5); Neutrophils Percent Auto 67.3 % (45.5-73.1); Platelet Count Result 245 k/mm3 (150-375); Red Blood Count 4.28 M/mm3 (4.2-5.4); Red Cell Distribution Width 14.6 % (11.5-14.5); White Blood Count 8.9 K/mm3 (4.5-10.0)
[2022-12-08 04:27] LABS: Prothrombin Time 13.1 Seconds (11.1-14.7)
[2022-12-08 04:30] LABS: Alanine Aminotransferase 18 U/L (6-35); Albumin Level 3.9 g/dL (3.5-5.1); Alkaline Phosphatase 85 U/L (38-126); Anion Gap 7 mmol/L (8-16); Aspartate Amino Transferase 19 U/L (14-36); Bilirubin,Total 0.5 mg/dL (0.2-1.3); Blood Urea Nitrogen 15 mg/dL (7-17); Calcium 8.2 mg/dL (8.4-10.2); Carbon Dioxide 24 mmol/L (22-30); Chloride 106 mmol/L (98-107); Estimated CRCL calculation 82 ml/min; Estimated Glomerular Filt Rate > 60; Glucose 243 mg/dL (65-110); Lipase 59 U/L (23-300); Potassium 3.3 mmol/L (3.4-5.0); Sodium 137 mmol/L (137-145)
[2022-12-08 04:33] LABS: D Dimer 2.48 ug/mL (<0.48)
[2022-12-08 04:39] LABS: NT Pro B Type Natriuretic Pept 3190 pg/mL (19.9-100)
[2022-12-08 04:42] LABS: Troponin I 0.033 ng/mL (0.000-0.034)
[2022-12-08] MEDS: FUROSEMIDE INJ 40 MG/4 ML VIAL IV PUSH (06:22)
[2022-12-08] MEDS: MORPHINE SULFATE (*CRX) 4 MG/ML INJ IV PUSH (06:29)
[2022-12-08] MEDS: ONDANSETRON INJ 4 MG/2 ML VIAL IV PUSH (06:29)
--- NOTE | 2022-12-08 08:16 | PM.IMHP ---
H&P: HPI History of Present Illness Date/Time: 12/08/22 08:16 Chief Complaint: Back pain Narrative: Patient is a 57-year-old female who is well known to this facility from prior hospitalizations. She has medical comorbidities of HFrEF 30%, insulin-dependent diabetes mellitus, coronary artery disease with 5 vessel CABG in August of this year at [facility], peripheral artery disease with previous BKA and angiography, chronic lumbar compression fractures, hypertension, anxiety, COPD and suspected uncontrolled sleep apnea. Patient presented to the ED, from home, with complaints of bilateral back/rib pain for approximately 5 days. Patient was admitted to this facility from 11/19 to 11/1022 for UTI, elevated troponin, and CHF exacerbation. She was discharged home with home health on Bactrim for an additional 5 days. She denies acute injury or falls. She reportedly stated in the ED ?both of my lungs hurt?. She has associated shortness of breath, productive cough with yellow phlegm and orthopnea. She reports chronic lower extremity edema that is unchanged. Her back pain is worse with coughing. She has been taking ibuprofen and Flexeril for pain with minimal improvement. She denies substernal chest pain, unknown fever, chills, night sweats, abdominal pain, nausea, vomiting, diarrhea, constipation, or urinary changes. Her last dose of Lasix was 2 days ago and she reports not taking her diuretic due to pain and not wanting to get up to the bathroom. In the ED vitals were temp 97.6? F, HR 106, RR 14, BP 132/99, and SpO2 93% on room air. Patient was placed on 2 L of oxygen in the emergency department which increased to 97%. A chest x-ray showed mild pulmonary edema and bilateral moderate effusions appears increased from previous admission. CTA chest was negative for PE, demonstrated moderate pleural effusions noted on chest x-ray, and age indeterminate left 4th through 6 rib fractures new from 07/31/2022, and bilateral hilar lymphadenopathy likely reactive. EKG showed sinus tach with occasional PVCs. Lab work was significant for D-dimer 2.48 (of note patient has had prior elevated D-dimers on previous admissions with negative CTA chests), BNP 3190, troponin 0.033, no leukocytosis, hemoglobin 10.6 but stable from previous admission, potassium 3.3, glucose 243 but otherwise unremarkable chemistry. She was treated with Lasix 40 mg IV x1, morphine 4 mg IV x1 and Zofran 4 mg IV x1. Patient was referred for further management of acute on chronic systolic CHF exacerbation and acute upper back pain that may be secondary to a new rib fractures. Review of Systems Review of Systems: All systems reviewed & are unremarkable except as noted in HPI and below PMFSH Past Medical History Medical History (Updated 12/08/22 @ 17:18 by Sujey Rendon, [place]) Anxiety Charcot's joint of foot in type 2 diabetes mellitus Of the right foot Chronic obstructive pulmonary disease Coronary artery disease Left anterior descending stent 01/2019. 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 Peripheral vascular disease due to secondary diabetes Suspected sleep apnea AHI 35 on apnea link on 06/16/2022. Surgical History Surgical History (Updated 12/08/22 @ 17:01 by Sujey Rendon, SECURITY INSTALLATION TECHNICIAN) History of appendectomy History of section x3 History of hysterectomy Partial, ovaries retained. Due to cervical changes. History of tonsillectomy and adenoidectomy History of vertebroplasty Hx of BKA Right 11/19/20 at [facility] S/P CABG x 5 w/MVR and left atr
[2022-12-08 08:36] LABS: Glucose Point of Care 251 mg/dl (65-105)
[2022-12-08 08:44] LABS: Magnesium 1.7 mg/dL (1.6-2.3)
[2022-12-08] MEDS: CLOPIDOGREL BISULFATE 75 MG TABLET PO (10:04)
[2022-12-08] MEDS: HEPARIN SODIUM 5,000 UNITS/ML VIAL 5000 UNITS SUB-Q (10:04)
[2022-12-08] MEDS: EMPAGLIFLOZIN 25 MG TABLET PO (10:04)
[2022-12-08] MEDS: ASPIRIN 81 MG ENTERIC TABLET PO (10:04)
[2022-12-08] MEDS: HYDROcodone/acetaminophen (*CRX) 5-325 MG TABLET 1 TAB PO (10:05)
[2022-12-08] MEDS: LIDOCAINE 5% PATCH 1 PATCH TRANSDERM (10:09)
--- NOTE | 2022-12-08 10:28 | ADMGEN ---
This patient, Tiff Vaughn, was admitted to [facility] S[facility] Room 316-01. Patient/family oriented to hospital policies and general routines including ID bracelet, bed and alarms, visiting hours, pain management, procedures, bathroom and other care routines, personal items, smoking policy, room service/diet, and visiting hours. Information on how to activate the Rapid Response Team has been discussed. Patient/Family are encouraged to report perceived risks to care and to ask questions if they do not understand what they are told or what they should do.
[2022-12-08 11:47] LABS: Glucose Point of Care 336 mg/dl (65-105)
[2022-12-08] MEDS: POTASSIUM CHLORIDE INJ 40 MEQ in SODIUM CHLORIDE 0.9% IV 500 ML 130 MEQ IVPB ×2 (12:46→18:27)
[2022-12-08] MEDS: INSULIN ASPART (*BKC) 100 UNITS/ML SUB-Q ×2 (12:46→12:47)
[2022-12-08] MEDS: SPIRONOLACTONE 25 MG TABLET PO (15:32)
[2022-12-08 16:51] LABS: Anion Gap 8 mmol/L (8-16); Blood Urea Nitrogen 14 mg/dL (7-17); Calcium 8.2 mg/dL (8.4-10.2); Carbon Dioxide 28 mmol/L (22-30); Chloride 106 mmol/L (98-107); Estimated CRCL calculation 66 ml/min; Estimated Glomerular Filt Rate > 60; Glucose 125 mg/dL (65-110); Potassium 3.5 mmol/L (3.4-5.0); Sodium 142 mmol/L (137-145)
[2022-12-08 16:53] LABS: Glucose Point of Care 71 mg/dl (65-105)
[2022-12-08 17:32] LABS: Iron 32 ug/dL (37-170); Percent Iron Saturation 9 % (20-50)
[2022-12-08 17:35] LABS: Glucose Point of Care 122 mg/dl (65-105)
[2022-12-08 18:04] LABS: Folic Acid 11.8 ng/mL (2.76->20)
[2022-12-08] MEDS: PREGABALIN (*CRX) 50 MG CAPSULE 100 MG PO (20:30)
[2022-12-08] MEDS: METOPROLOL SUCCINATE EXT REL 12.5 MG TABCR PO (20:30)
[2022-12-08] MEDS: DULoxetine HCL 60 MG CAPSULE.DR PO (20:30)
[2022-12-08 22:23] LABS: Glucose Point of Care 115 mg/dl (65-105)
[2022-12-09] VITALS (11 sets, daily range): BP systolic 104–113; BP diastolic 65–71; PULSE 91–99; RESP 16–18; TEMP 35.9–36.3; O2SAT 94–95
[2022-12-09] MEDS: LEVOTHYROXINE SODIUM 50 MCG TABLET PO (05:49)
[2022-12-09 06:31] LABS: Hematocrit 33.8 % (37.0-47.0); Mean Corpuscular HGB Conc 29.6 g/dl (32-36); Mean Corpuscular Volume 81.3 fl (80-100); Mean Platelet Volume 11.5 fl (7.4-10.4); Platelet Count Result 227 k/mm3 (150-375); Red Blood Count 4.16 M/mm3 (4.2-5.4); Red Cell Distribution Width 14.6 % (11.5-14.5); White Blood Count 7.2 K/mm3 (4.5-10.0)
[2022-12-09 06:35] LABS: Alanine Aminotransferase 15 U/L (6-35); Albumin Level 3.7 g/dL (3.5-5.1); Alkaline Phosphatase 89 U/L (38-126); Anion Gap 6 mmol/L (8-16); Aspartate Amino Transferase 21 U/L (14-36); Bilirubin,Total 0.6 mg/dL (0.2-1.3); Blood Urea Nitrogen 13 mg/dL (7-17); Calcium 8.1 mg/dL (8.4-10.2); Carbon Dioxide 26 mmol/L (22-30); Chloride 109 mmol/L (98-107); Estimated CRCL calculation 60 ml/min; Estimated Glomerular Filt Rate > 60; Glucose 127 mg/dL (65-110); Magnesium 1.6 mg/dL (1.6-2.3); Potassium 4.2 mmol/L (3.4-5.0); Sodium 141 mmol/L (137-145)
[2022-12-09 07:08] LABS: Vitamin D 25 Hydroxy 15.2 ng/mL
[2022-12-09 07:51] LABS: Glucose Point of Care 140 mg/dl (65-105)
[2022-12-09] MEDS: CLOPIDOGREL BISULFATE 75 MG TABLET PO (08:19)
[2022-12-09] MEDS: DULoxetine HCL 60 MG CAPSULE.DR PO ×2 (08:19→21:12)
[2022-12-09] MEDS: ASPIRIN 81 MG ENTERIC TABLET PO (08:22)
[2022-12-09] MEDS: SPIRONOLACTONE 25 MG TABLET PO (08:22)
[2022-12-09] MEDS: FUROSEMIDE INJ 40 MG/4 ML VIAL IV PUSH (08:22)
[2022-12-09] MEDS: HEPARIN SODIUM 5,000 UNITS/ML VIAL 5000 UNITS SUB-Q ×2 (08:22→21:12)
[2022-12-09] MEDS: EMPAGLIFLOZIN 25 MG TABLET PO (08:22)
[2022-12-09] MEDS: AMIODARONE HCL 200 MG TABLET 400 MG PO (08:22)
[2022-12-09] MEDS: PREGABALIN (*CRX) 50 MG CAPSULE 100 MG PO ×2 (08:23→21:13)
[2022-12-09] MEDS: INSULIN GLARGINE (*BKC) 100 UNITS/ML 10 UNITS SUB-Q (08:32)
--- NOTE | 2022-12-09 08:54 | PCPTNOTE ---
attempted to see pt for PT eval 854- pt on bed cruz and has not eaten her breakfast yet; will try later;
[2022-12-09 12:24] LABS: Glucose Point of Care 221 mg/dl (65-105)
[2022-12-09 13:28] LABS: Glucose Point of Care 241 mg/dl (65-105)
[2022-12-09] MEDS: INSULIN ASPART (*BKC) 100 UNITS/ML SUB-Q (13:30)
--- NOTE | 2022-12-09 14:48 | PM.IMPN ---
Progress Note: A&P Assessment and Plan (1) Acute on chronic heart failure with reduced ejection fraction and diastolic dysfunction: Code(s): I50.43 - Acute on chronic combined systolic (congestive) and diastolic (congestive) heart failure Status: Acute Assessment and Plan: Acute on chronic systolic and diastolic dysfunction. Echocardiogram 07/2022 shows EF 30-35%, severe hypokinesis to the apical lateral and anterior lateral regions, grade 1 diastolic dysfunction, mild LVH, septal wall abnormality consistent with bundle branch block, mild , and MR. Continue diuresis Lasix 40 mg IV push daily. Patient's potassium level is 3.3 and she refuses to take oral potassium supplements. Will continue spironolactone 25 mg p.o. daily to prevent significant hypokalemia. continue Jardiance dose increased to 25 mg as patient is hyperglycemic and last A1c 8% Continue beta-gisela Toprol XL 12.5 mg at HS Monitor daily weights and net fluid balance by strict intake and outputs Patient apparently has been taking midodrine 5 mg p.o. t.i.d.. She states she has been taking this for her heart, however it appears she has had episodes of hypotension with past hospitalizations. BP 132/99 will hold midodrine for now and resume if patient becomes hypotensive. (2) Fracture of rib: Code(s): S22.39XA - Fracture of one rib, unspecified side, initial encounter for closed fracture Status: Acute Assessment and Plan: Patient complains of left posterior rib pain and noted on CT age indeterminate 4th through 6 rib fractures new since 07/2022. Patient denies recent fall and pain occurred approximately 5 days ago. On exam patient has pinpoint tenderness to palpation in this region. May be nontraumatic fractures from chronic cough. Patient does have multiple lumbar compression fractures. She was recommended to have DEXA scan outpatient however has had repeated hospitalizations in a rehab stay more than 3 weeks ago and has not obtain this. Vitamin-D 25-oh level 15.2. Will add supplement. Continue analgesics-cyclobenzaprine p.r.n. muscle spasms, Lidoderm patch daily, p.r.n. [place] (3) Shortness of breath: Code(s): R06.02 - Shortness of breath Status: Acute Assessment and Plan: Secondary to increased pleural effusions and likely new left rib fractures. Continue diuresis and pain control. Will add incentive spirometer to improve atelectasis. (4) Hypokalemia: Code(s): E87.6 - Hypokalemia Status: Chronic Assessment and Plan: Potassium 3.3 and patient is being treated with IV diuretics. She refused oral replacement. Give 40 mEq KCL IVPB now and repeat at 9:00 p.m. trend BMP/magnesium and supplemental electrolytes as needed (5) Suspected sleep apnea: Code(s): R29.818 - Other symptoms and signs involving the nervous system Status: Chronic Assessment and Plan: 06/2022 AHI 35 on ApneaLink suggesting sleep apnea. Patient states she does not want a sleep study because she does ?does not want people to watch her sleeping? and tried her mother's CPAP in the past and was unable to tolerate it. When questioned she states mother's mask was a full facial mask. She stated she might be able to tolerate nasal pillows and may consider home sleep study if available. Continue to encourage patient to obtain sleep study and trial CPAP (6) Peripheral arterial disease: Code(s): I73.9 - Peripheral vascular disease, unspecified Status: Chronic Assessment and Plan: Chronic. S/p right BKA, bilateral external iliac artery stenting, and stenting of the left common iliac vein and 2019. Continue aspirin, Plavix from recent CABG, antihypertensives. She is intolerant of statins and is currently on Repatha she does not know when her last dose was. (7) Chronic obstructive pulmonary disease:
--- NOTE | 2022-12-09 15:28 | PCCCNOTE ---
On 12/09/22, the student, [Lyndsay Delaney ], provided care and completed [facility] documentation on this patient. I have reviewed the student's documentation and agree with the findings.
[2022-12-09 16:55] LABS: Glucose Point of Care 115 mg/dl (65-105)
[2022-12-09] MEDS: METOPROLOL SUCCINATE EXT REL 12.5 MG TABCR PO (21:12)
[2022-12-09] MEDS: CYCLOBENZAPRINE HCL 10 MG TABLET PO (23:06)
[2022-12-09] MEDS: ALPRAZolam (*CRX) 0.5 MG TABLET PO (23:08)
[2022-12-09] MEDS: HYDROcodone/acetaminophen (*CRX) 5-325 MG TABLET 1 TAB PO (23:46)
[2022-12-09 23:50] LABS: Glucose Point of Care 134 mg/dl (65-105)
[2022-12-10] VITALS (7 sets, daily range): BP systolic 111–114; BP diastolic 63–66; PULSE 80–94; RESP 18; TEMP 36.1–36.4; O2SAT 93–94
[2022-12-10] MEDS: LEVOTHYROXINE SODIUM 50 MCG TABLET PO (05:13)
[2022-12-10 06:33] LABS: Hematocrit 34.4 % (37.0-47.0); Hemoglobin 10.3 g/dL (12.0-15.0); Mean Corpuscular HGB Conc 29.9 g/dl (32-36); Mean Corpuscular Hemoglobin 24.5 pg (26-34); Mean Corpuscular Volume 81.7 fl (80-100); Mean Platelet Volume 11.2 fl (7.4-10.4); Platelet Count Result 215 k/mm3 (150-375); Red Blood Count 4.21 M/mm3 (4.2-5.4); Red Cell Distribution Width 14.7 % (11.5-14.5); White Blood Count 6.6 K/mm3 (4.5-10.0)
[2022-12-10 06:46] LABS: Alanine Aminotransferase 14 U/L (6-35); Albumin Level 3.7 g/dL (3.5-5.1); Alkaline Phosphatase 88 U/L (38-126); Anion Gap 7 mmol/L (8-16); Aspartate Amino Transferase 20 U/L (14-36); Bilirubin,Total 0.5 mg/dL (0.2-1.3); Blood Urea Nitrogen 17 mg/dL (7-17); Calcium 8.2 mg/dL (8.4-10.2); Carbon Dioxide 30 mmol/L (22-30); Chloride 102 mmol/L (98-107); Estimated CRCL calculation 49 ml/min; Estimated Glomerular Filt Rate 51; Glucose 154 mg/dL (65-110); Potassium 3.7 mmol/L (3.4-5.0); Sodium 139 mmol/L (137-145)
[2022-12-10 07:48] LABS: Glucose Point of Care 137 mg/dl (65-105)
[2022-12-10] MEDS: AMIODARONE HCL 200 MG TABLET 400 MG PO (08:15)
[2022-12-10] MEDS: HEPARIN SODIUM 5,000 UNITS/ML VIAL 5000 UNITS SUB-Q (08:15)
[2022-12-10] MEDS: CHOLECALCIFEROL 1,000 UNITS TABLET 1000 UNITS PO (08:16)
[2022-12-10] MEDS: ASPIRIN 81 MG ENTERIC TABLET PO (08:16)
[2022-12-10] MEDS: EMPAGLIFLOZIN 25 MG TABLET PO (08:16)
[2022-12-10] MEDS: CLOPIDOGREL BISULFATE 75 MG TABLET PO (08:16)
[2022-12-10] MEDS: FUROSEMIDE INJ 40 MG/4 ML VIAL IV PUSH (08:16)
[2022-12-10] MEDS: SPIRONOLACTONE 25 MG TABLET PO (08:17)
[2022-12-10] MEDS: INSULIN GLARGINE (*BKC) 100 UNITS/ML 10 UNITS SUB-Q (08:17)
[2022-12-10] MEDS: DULoxetine HCL 60 MG CAPSULE.DR PO (08:17)
[2022-12-10] MEDS: PREGABALIN (*CRX) 50 MG CAPSULE 100 MG PO (08:25)
[2022-12-10 11:43] LABS: Glucose Point of Care 307 mg/dl (65-105)
[2022-12-10] MEDS: INSULIN ASPART (*BKC) 100 UNITS/ML SUB-Q (12:48)
--- NOTE | 2022-12-10 13:15 | PM.DS ---
DS: Admitting Diagnosis Discharge Date 12/10/22 Admitting Diagnosis CHF exacerbation DS: Discharge Diagnosis Discharge Diagnosis (1) Acute on chronic heart failure with reduced ejection fraction and diastolic dysfunction: Code(s): I50.43 - Acute on chronic combined systolic (congestive) and diastolic (congestive) heart failure Status: Acute Assessment and Plan: Acute on chronic systolic and diastolic dysfunction. Echocardiogram 07/2022 shows EF 30-35%, severe hypokinesis to the apical lateral and anterior lateral regions, grade 1 diastolic dysfunction, mild LVH, septal wall abnormality consistent with bundle branch block, mild , and MR. Continue diuresis Lasix 40 mg IV push daily. Patient's potassium level is 3.3 and she refuses to take oral potassium supplements. Will continue spironolactone 25 mg p.o. daily to prevent significant hypokalemia. continue Jardiance dose increased to 25 mg as patient is hyperglycemic and last A1c 8% Continue beta-gisela Toprol XL 12.5 mg at Monitor daily weights and net fluid balance by strict intake and outputs Patient apparently has been taking midodrine 5 mg p.o. t.i.d.. She states she has been taking this for her heart, however it appears she has had episodes of hypotension with past hospitalizations. BP 132/99 will hold midodrine for now and resume if patient becomes hypotensive. Will most likely discontinue midodrine at discharge due to patient not experiencing hypotension during hospital stay. (2) Fracture of rib: Code(s): S22.39XA - Fracture of one rib, unspecified side, initial encounter for closed fracture Status: Acute Assessment and Plan: Patient complains of left posterior rib pain and noted on CT age indeterminate 4th through 6 rib fractures new since 07/2022. Patient denies recent fall and pain occurred approximately 5 days ago. On exam patient has pinpoint tenderness to palpation in this region. May be nontraumatic fractures from chronic cough. Patient does have multiple lumbar compression fractures. She was recommended to have DEXA scan outpatient however has had repeated hospitalizations in a rehab stay more than 3 weeks ago and has not obtain this. Vitamin-D 25-oh level 15.2. Will add supplement. Continue analgesics-cyclobenzaprine p.r.n. muscle spasms, Lidoderm patch daily, p.r.n. Entriken Stress that patient needs to undergo outpatient DEXA scan. (3) Shortness of breath: Code(s): R06.02 - Shortness of breath Status: Acute Assessment and Plan: Secondary to increased pleural effusions and likely new left rib fractures. Continue diuresis and pain control. Will add incentive spirometer to improve atelectasis. (4) Hypokalemia: Code(s): E87.6 - Hypokalemia Status: Chronic Assessment and Plan: Potassium 3.3 and patient is being treated with IV diuretics. She refused oral replacement. Give 40 mEq KCL IVPB now and repeat at 9:00 p.m. trend BMP/magnesium and supplemental electrolytes as needed (5) Suspected sleep apnea: Code(s): R29.818 - Other symptoms and signs involving the nervous system Status: Chronic Assessment and Plan: 06/2022 AHI 35 on ApneaLink suggesting sleep apnea. Patient states she does not want a sleep study because she does ?does not want people to watch her sleeping? and tried her mother's CPAP in the past and was unable to tolerate it. When questioned she states mother's mask was a full facial mask. She stated she might be able to tolerate nasal pillows and may consider home sleep study if available. Continue to encourage patient to obtain sleep study and trial CPAP (6) Peripheral arterial disease: Code(s): I73.9 - Peripheral vascular disease, unspecified Status: Chronic Assessment and Plan: Chronic. S/p right BKA, bilateral external iliac artery stenting, and
== END 2022-12-10 16:10 | disposition home or self-care (01) ==
LOC: ANHED 03:35 → ANH3MEDSUR 06:51
PROVIDERS: Internal Medicine Critical Care Medicine; Nurse Practitioner Family; Admitting Provider Internal Medicine; Emergency Provider General Practice; PCP Emergency Medicine; Visit Provider Internal Medicine
DX: I50.43 Acute on chronic combined systolic (congestive) and diastolic (congestive) heart failure (principal); S22.39XA Fracture of one rib, unspecified side, initial encounter for closed fracture; R06.02 Shortness of breath; E87.6 Hypokalemia; R29.818 Other symptoms and signs involving the nervous system; E11.51 Type 2 diabetes mellitus with diabetic peripheral angiopathy without gangrene; Z98.62 Peripheral vascular angioplasty status; I25.10 Atherosclerotic heart disease of native coronary artery without angina pectoris; Z95.1 Presence of aortocoronary bypass graft; E11.610 Type 2 diabetes mellitus with diabetic neuropathic arthropathy; J44.9 Chronic obstructive pulmonary disease, unspecified; F41.9 Anxiety disorder, unspecified; F32.A Depression, unspecified; E78.5 Hyperlipidemia, unspecified; E11.65 Type 2 diabetes mellitus with hyperglycemia; R94.31 Abnormal electrocardiogram [ECG] [EKG]; R00.0 Tachycardia, unspecified; R91.8 Other nonspecific abnormal finding of lung field; J81.1 Chronic pulmonary edema; Z89.519 Acquired absence of unspecified leg below knee; R59.1 Generalized enlarged lymph nodes; Z87.891 Personal history of nicotine dependence; Z79.4 Long term (current) use of insulin; Z79.02 Long term (current) use of antithrombotics/antiplatelets; Z79.85 Long-term (current) use of injectable non-insulin antidiabetic drugs; Z79.82 Long term (current) use of aspirin; Z79.891 Long term (current) use of opiate analgesic; Z79.899 Other long term (current) drug therapy; Z82.49 Family history of ischemic heart disease and other diseases of the circulatory system; Z81.8 Family history of other mental and behavioral disorders
CPT/HCPCS: 36415; 71045; 71275; 80048; 80053; 82306; 82607; 82728; 82746; 82948; 83540; 83550; 83690; 83735; 83880; 84484; 85025; 85027; 85380; 85610; 85730; 93005; 96365; 96366; 96374; 96375; 97161; 97165; 97530; 97535; 99285; A9270; G0378; J1644; J1815; J1940; J2270; J2405; J3480; J7040; Q9967

== ENCOUNTER 2023-06-17 04:41 | Inpatient (IN) | payer MEDICARE, MEDICAID, SELFPAY ==
[2023-06-17] VITALS (33 sets, daily range): BP systolic 116–143; BP diastolic 65–105; PULSE 96–117; RESP 15–31; TEMP 36.1–36.8; O2SAT 90–96; BMI 27.8
--- NOTE | ~2023-06-17 | XR_ITS ---
EXAMINATION: XR chest 2V DATE: 06/20/2023 08:39 INDICATION: Shortness of breath TECHNIQUE: AP and lateral views of the chest are obtained. COMPARISON: 06/17/2023 FINDINGS: Cardiomegaly is noted. There is a moderate-sized left pleural effusion without significant change. Left basilar airspace opacities are stable. There is no pneumothorax. There is chronic fractu re of the proximal left humerus. Median sternotomy wires and mediastinal surgical clips are seen, lik anthony from prior coronary artery bypass grafting. A cardiac monitoring device is implanted in the left anterior chest wall. Vertebroplasty change is noted in the lumbar spine. IMPRESSION: 1. Cardiomegaly. 2. Stable moderate-sized left pleural effusion. 3. Stable left basilar airspace opacities, consistent with atelectasis versus pneumonia. Reviewed, dictated and finalized at location F. GE WORKER IMPRESSION: 1. Cardiomegaly. 2. Stable moderate-sized left pleural effusion. 3. Stable left basilar airspace opacities, consistent with atelectasis versus p neumonia.
--- NOTE | ~2023-06-17 | XR_ITS ---
EXAMINATION: XR chest 1V portable DATE: 06/17/2023 05:32 INDICATION: Shortness of breath. TECHNIQUE: A single frontal view of the chest was obtained. COMPARISON: Chest single view 12/08/2022, chest CT 12/08/2022 FINDINGS: There is a moderate-sized left pleural effusion. There are airspace opacities at left lung base. No pneumothorax. Cardiomegaly is noted. Median sternotomy wires and mediastinal surgical clips are seen, likely from prior coronary artery bypass grafting. There is an electronic implant in left c hest wall. There is an old fracture of proximal left humerus. There are old healed left rib fractures . IMPRESSION: 1. Moderate-sized left pleural effusion. 2. Airspace opacities at left lung base, consistent with atelectasis versus pneumonia. 3. Cardiomegaly. Reviewed, dictated and finalized at location E. IMPRESSION: 1. Moderate-sized left pleural effusion. 2. Airspace opacities at left lung base, consistent with atelectasis versus pne umonia. 3. Cardiomegaly.
--- NOTE | ~2023-06-17 | XR_ITS ---
EXAMINATION: XR foot LT min 3V DATE: 06/19/2023 14:22 INDICATION: Left lower limb swelling TECHNIQUE: Dorsoplantar, two oblique and lateral views of the left foot were obtained. COMPARISON: None. FINDINGS: Diffuse osteopenia. Likely Charcot foot with sclerotic and severe destructive changes most prominent in the midfoot were there is displacement and fragmentation with significant loss of bone stock of th e navicula, cuboid and the cuneiforms. This results in secondary pes planus with rocker bottom foot. Additional polyarticular osteoarthritis, mild at the left ankle, severe at the subtalar joint, modera te at the first metatarsophalangeal joint and mild at the remaining metatarsophalangeal and interphal angeal joints. No periosteal reaction or is osteolysis suspicious for osteomyelitis although sensitiv ity is decreased by the previous noted prominent destructive changes in the midfoot. Moderate-sized A chilles and plantar calcaneal spurs. Mild diffuse soft tissue swelling about the foot, ankle and visu alized lower leg. No evident soft tissue gas. IMPRESSION: 1. Findings consistent with chronic Charcot foot with prominent destructive changes in the midfoot. 2. No soft tissue gas to suggest necrotizing fasciitis or regions of osteolysis suspicious for osteom yelitis. Reviewed, dictated and finalized at location A. IMPRESSION: 1. Findings consistent with chronic Charcot foot with prominent destructive arnol nges in the midfoot. 2. No soft tissue gas to suggest necrotizing fasciitis or regions of osteolysis suspicious for osteomyelitis.
--- NOTE | 2023-06-17 04:47 | ECG_ITS ---
Measurements Intervals [place] Rate: 109 P: 51 LA: 129 QRS: 92 QRSD: 93 T: -36 QT: 345 QTc: 465 Interpretive Statements SINUS TACHYCARDIA ATRIAL AND VENTRICULAR PREMATURE COMPLEXES RIGHT AXIS DEVIATION LOW QRS VOLTAGE IN LIMB LEADS BORDERLINE ST-T WAVE ABNORMALITY0 HIGH LATERAL LEADS BASELINE ARTIFACT- V4-V6 ABNORMAL ECG COMPARED TO ECG 12/08/2022 03:34:24 NO SIGNIFICANT CHANGES Electronically Signed On 06-17-2023 6:26:56 CDT by Mike Bernardo D.O.
[2023-06-17 05:06] LABS: Basophils Absolute Auto 0.1 K/mm3 (0.0-0.1); Basophils Percent Auto 0.7 % (0.2-1.2); Eosinophils Absolute Auto 0.2 K/mm3 (0-0.3); Eosinophils Percent Auto 1.6 % (0-4.4); Hematocrit 38.7 % (37.0-47.0); Hemoglobin 11.7 g/dL (12.0-15.0); Immature Granulocyte Absolute 0.03 K/mm3 (0.00-0.031); Immature Granulocyte Percent A 0.3 % (0-0.5); Lymphocytes Absolute Auto 1.56 K/mm3 (0.9-3.2); Mean Corpuscular HGB Conc 30.2 g/dl (32-36); Mean Corpuscular Hemoglobin 24.2 pg (26-34); Mean Corpuscular Volume 80.1 fl (80-100); Mean Platelet Volume 11.1 fl (7.4-10.4); Monocytes Absolute Auto 0.6 K/mm3 (0.1-0.6); Monocytes Percent Auto 6.3 % (2.6-8.5); Neutrophils Absolute Auto 6.8 K/mm3 (1.3-6.7); Neutrophils Percent Auto 74.1 % (45.5-73.1); Platelet Count Result 180 k/mm3 (150-375); Red Blood Count 4.83 M/mm3 (4.2-5.4); White Blood Count 9.2 K/mm3 (4.5-10.0)
--- NOTE | 2023-06-17 05:06 | ED.SOB ---
HPI - SOB/Dyspnea General Chief Complaint: Shortness of Breath/Dyspnea Stated Complaint: Short of breath Time Seen by Provider: 06/17/23 04:58 History of Present Illness HPI Narrative: Patient is a 57-year-old female with a history of CHF, COPD, hypertension, diabetes, hyperlipidemia presenting with shortness of breath. Patient states that she was trying to sleep tonight but she was unable to secondary to her shortness of breath. States that it is much worse when she lays flat. States that she has stacked a bunch of pillows up but she continues to struggle with breathing when trying to sleep. She denies any chest pain. States that her legs have been more swollen than normal for the last 2 days. States she is compliant with her Lasix and she continues to make a lot of urine. No cough or fevers. No abdominal pain, nausea or vomiting, diarrhea, dysuria. No further complaints. Related Data Home Medications Medication Instructions Recorded Confirmed insulin lispro 100 unit/mL 10 unit subcut TIDWM 03/30/22 06/17/23 subcutaneous solution (Admelog U-100 Insulin lispro) evolocumab 140 mg/mL subcutaneous 140 mg subcut [id number] 06/15/22 06/17/23 pen injector (Bety Friedman) amiodarone 200 mg tablet 400 mg PO DAILY 11/19/22 06/17/23 midodrine 5 mg tablet 5 mg PO TID 04/13/23 06/17/23 cyclobenzaprine 10 mg tablet 10 mg PO TID PRN muscle spasms 05/19/23 06/17/23 duloxetine 60 mg capsule,delayed 60 mg PO DAILY 05/28/23 06/17/23 release empagliflozin 25 mg tablet 25 mg PO DAILY 05/28/23 06/17/23 (Jardiance) insulin glargine 100 unit/mL (3 8 unit subcut .COMPLEX 05/28/23 06/17/23 mL) subcutaneous pen (Basaglar KwikPen U-100 Insulin) spironolactone 25 mg tablet 12.5 mg PO DAILY 05/28/23 06/17/23 Allergies Allergy/AdvReac Type Severity Reaction Status Date / Time methantheline Allergy Unknown Verified 05/19/23 13:07 propofol Allergy Agitated Verified 05/19/23 13:07 Hdhfyen-QSA-FwF Reductase AdvReac Intermediate MYALGIAS Verified 05/19/23 13:07 Inhibitor Review of Systems Review of Systems: All systems reviewed & are unremarkable except as noted in HPI and below PMFSH Past Medical History Medical History Anxiety Charcot's joint of foot in type 2 diabetes mellitus Of the right foot Chronic obstructive pulmonary disease Coronary artery disease Left anterior descending stent 01/2019. Usual film cutter is Dr. 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 Peripheral vascular disease due to secondary diabetes Serotonin syndrome Suspected sleep apnea AHI 35 on apnea link on 06/16/2022. Surgical History Surgical History History of appendectomy History of section x3 History of hysterectomy Partial, ovaries retained. Due to cervical changes. History of tonsillectomy and adenoidectomy History of vertebroplasty Hx of BKA Right 11/19/20 at [facility] S/P CABG x 5 w/MVR and left atrial appendage ligation Status post cholecystectomy Stented coronary artery X1 Family History Family History Sibling Diabetes mellitus Mother Heart failure Cardiomegaly Arthritis Atrial fibrillation Family history of osteoporosis Family history of Alzheimer's disease Hypertension Cardiomyopathy Acute myocardial infarction History of heart artery stent Congestive heart failure Daughter Anxiety Father Esophagus cancer Cancer of spinal column Soc
[2023-06-17 05:17] LABS: Prothrombin Time 13.4 Seconds (11.1-14.7)
[2023-06-17 05:18] LABS: Partial Thromboplastin Time 23.9 SECONDS (22.3-36.8)
[2023-06-17] MEDS: ASPIRIN 81 MG CHEWABLE TABLET 324 MG PO (05:28)
[2023-06-17 05:29] LABS: Alanine Aminotransferase 23 U/L (6-35); Alkaline Phosphatase 111 U/L (38-126); Anion Gap 8 mmol/L (8-16); Aspartate Amino Transferase 27 U/L (14-36); Bilirubin,Total 0.7 mg/dL (0.2-1.3); Blood Urea Nitrogen 19 mg/dL (7-17); Calcium 8.8 mg/dL (8.4-10.2); Carbon Dioxide 23 mmol/L (22-30); Chloride 106 mmol/L (98-107); Estimated CRCL calculation 68 ml/min; Estimated Glomerular Filt Rate > 60; Glucose 322 mg/dL (65-110); Potassium 3.7 mmol/L (3.4-5.0); Sodium 137 mmol/L (137-145)
[2023-06-17 05:39] LABS: Influenza A QL RT-PCR Negative (Negative); Influenza B QL RT-PCR Negative (Negative); SARS-CoV-2 RNA PCR Negative (Negative)
--- NOTE | 2023-06-17 06:08 | PC.NURSE ---
Pt refused ASA, stating it tastes triible. Risks and benefits given. Pt then asked for something for pain because my legs feel like they are going to burst or split apart and feels like I'm having electric shocks go down them. ERP notified and gabapentin ordered. Pt then refused the gabapentin stating that she already took it last night and that I don't know why I take it. It does nothing. Not even Fentanyl helps. Pt given emotional support. ERP notified.
[2023-06-17 06:38] LABS: Troponin I 0.014 ng/mL (0.000-0.034)
--- NOTE | 2023-06-17 06:39 | PM.IMHP ---
H&P: HPI History of Present Illness Date/Time: 06/17/23 06:40 Chief Complaint: Shortness of breath Narrative: Patient is a 57-year-old female with a history of CHF, COPD, hypertension, diabetes, hyperlipidemia presenting with shortness of breath.? Patient states that she was trying to sleep tonight but she was unable to secondary to her shortness of breath.? States that it is much worse when she lays flat.? States that she has stacked a bunch of pillows up but she continues to struggle with breathing when trying to sleep.? She denies any chest pain.? States that her legs have been more swollen than normal for the last 2 days.? States she is compliant with her Lasix and she continues to make a lot of urine.? No cough or fevers.? No abdominal pain, nausea or vomiting, diarrhea, dysuria.? No further complaints. She has received IV furosemide 40 mg once, aspirin and currently off oxygen, CXR showed moderate pleural effusion and infiltrates. She denied chest pain. Review of Systems Review of Systems: All systems reviewed & are unremarkable except as noted in HPI and below PMFSH Past Medical History Medical History Anxiety Charcot's joint of foot in type 2 diabetes mellitus Of the right foot Chronic obstructive pulmonary disease Coronary artery disease Left anterior descending stent 01/2019. 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 Peripheral vascular disease due to secondary diabetes Serotonin syndrome Suspected sleep apnea AHI 35 on apnea link on 06/16/2022. Surgical History Surgical History History of appendectomy History of section x3 History of hysterectomy Partial, ovaries retained. Due to cervical changes. History of tonsillectomy and adenoidectomy History of vertebroplasty Hx of BKA Right 11/19/20 at [facility] S/P CABG x 5 w/MVR and left atrial appendage ligation Status post cholecystectomy Stented coronary artery X1 Family History Family History Sibling Diabetes mellitus Mother Heart failure Cardiomegaly Arthritis Atrial fibrillation Family history of osteoporosis Family history of Alzheimer's disease Hypertension Cardiomyopathy Acute myocardial infarction History of heart artery stent Congestive heart failure Daughter Anxiety Father Esophagus cancer Cancer of spinal column Social History Social History Social History: The patient is . The patient had 4 children and 1 of her daughters is now. She is disabled. She is a former smoker. She denies any alcohol marijuana or illicit drugs. Primarily wheelchair-bound. Surrogate medical decision maker: Jass Arciniega, son. Code status: Full code. Smoking packs per day: 1.5 Smoking cigarettes per day: 30.0 Years smoked: 20 Smoking pack-years: 30.00 Smoking status: Former smoker Tobacco type: cigarettes Additional smoking assessment comments: quit 2020 Alcohol intake: former Substance use: current Substance use type: marijuana Other substance usage details: One edible 2 per week Last use: 12/05/22 Lack of Transportation: No Lack of Food: Often True Current Housing: I Have Housing Concerned About Future Housing: No Difficulty Paying Gas/Electric Bills: YES Difficulty Paying for Meds: No Currently Unemployed: No Education: High School Diploma/GED
[2023-06-17 06:57] LABS: NT Pro B Type Natriuretic Pept 5570 pg/mL (19.9-100)
[2023-06-17] MEDS: FUROSEMIDE INJ 40 MG/4 ML VIAL IV PUSH (06:57)
--- NOTE | 2023-06-17 07:02 | PC.NURSE ---
Pt refused young catheter.
--- NOTE | 2023-06-17 07:14 | PC.NURSE ---
Report to [facility]
[2023-06-17] MEDS: AZITHROMYCIN 500 MG/NS 250 ML 500 MG/250 ML BAG 250 MG IVPB (07:19)
[2023-06-17 09:01] LABS: Troponin I 0.018 ng/mL (0.000-0.034)
--- NOTE | 2023-06-17 09:30 | ADMGEN ---
This patient, Tiff Vaughn, was admitted to [address] [place] [address] Room 330-01. Patient/family oriented to hospital policies and general routines including ID bracelet, bed and alarms, visiting hours, pain management, procedures, bathroom and other care routines, personal items, smoking policy, room service/diet, and visiting hours. Information on how to activate the Rapid Response Team has been discussed. Patient/Family are encouraged to report perceived risks to care and to ask questions if they do not understand what they are told or what they should do.
[2023-06-17 11:32] LABS: Troponin I 0.017 ng/mL (0.000-0.034)
[2023-06-17] MEDS: ALBUTEROL SULFATE NEB 2.5 MG/3 ML INH INHALATION (19:45)
[2023-06-17 20:13] LABS: Glucose Point of Care 321 mg/dl (65-105)
[2023-06-17] MEDS: PREGABALIN (*CRX) 50 MG CAPSULE 100 MG PO (20:49)
[2023-06-17] MEDS: METOPROLOL SUCCINATE EXT REL 12.5 MG TABCR PO (20:49)
[2023-06-17] MEDS: CYCLOBENZAPRINE HCL 10 MG TABLET PO (20:50)
[2023-06-17] MEDS: ALPRAZolam (*CRX) 0.5 MG TABLET PO (20:52)
[2023-06-17] MEDS: INSULIN ASPART (*BKC) 100 UNITS/ML SUB-Q (23:53)
[2023-06-18] VITALS (14 sets, daily range): BP systolic 95–114; BP diastolic 63–80; PULSE 80–100; RESP 17–22; TEMP 35.9–36.6; O2SAT 93–100
[2023-06-18] MEDS: LEVOTHYROXINE SODIUM 50 MCG TABLET PO (05:50)
[2023-06-18 06:31] LABS: Basophils Absolute Auto 0.1 K/mm3 (0.0-0.1); Eosinophils Absolute Auto 0.2 K/mm3 (0-0.3); Hemoglobin 10.9 g/dL (12.0-15.0); Immature Granulocyte Absolute 0.02 K/mm3 (0.00-0.031); Immature Granulocyte Percent A 0.3 % (0-0.5); Lymphocytes Absolute Auto 2.29 K/mm3 (0.9-3.2); Lymphocytes Percent Auto 29.7 % (18.3-44.2); Mean Corpuscular HGB Conc 28.7 g/dl (32-36); Mean Corpuscular Hemoglobin 23.9 pg (26-34); Mean Corpuscular Volume 83.2 fl (80-100); Mean Platelet Volume 11.4 fl (7.4-10.4); Monocytes Absolute Auto 0.7 K/mm3 (0.1-0.6); Monocytes Percent Auto 8.4 % (2.6-8.5); Neutrophils Absolute Auto 4.5 K/mm3 (1.3-6.7); Neutrophils Percent Auto 57.6 % (45.5-73.1); Platelet Count Result 184 k/mm3 (150-375); Red Blood Count 4.57 M/mm3 (4.2-5.4); Red Cell Distribution Width 16.3 % (11.5-14.5); White Blood Count 7.7 K/mm3 (4.5-10.0)
[2023-06-18 06:41] LABS: Anion Gap 6 mmol/L (8-16); Blood Urea Nitrogen 19 mg/dL (7-17); Calcium 8.3 mg/dL (8.4-10.2); Carbon Dioxide 25 mmol/L (22-30); Chloride 109 mmol/L (98-107); Estimated CRCL calculation 54 ml/min; Estimated Glomerular Filt Rate 57; Glucose 147 mg/dL (65-110); Potassium 3.4 mmol/L (3.4-5.0); Sodium 140 mmol/L (137-145)
--- NOTE | 2023-06-18 07:00 | ECG_ITS ---
Measurements Intervals [place] Rate: 93 P: 7 LA: 203 QRS: -6 QRSD: 110 T: 98 QT: 396 QTc: 493 Interpretive Statements SINUS RHYTHM ATRIAL AND VENTRICULAR PREMATURE COMPLEXES LOW QRS VOLTAGE IN LIMB LEADS INTRAVENTRICULAR CONDUCTION DELAY BORDERLINE ST-T WAVE ABNORMALITY- ANTEROLAT/HIGH LAT LEADS BASELINE WANDER- AVR, AVL, AVF ABNORMAL ECG COMPARED TO ECG 06/17/2023 04:51:59 SINUS RHYTHM NOW PRESENT INTRAVENTRICULAR CONDUCTION DELAY NOW PRESENT Electronically Signed On 06-18-2023 9:45:23 CDT by Mike eBrnardo D.O.
[2023-06-18 07:15] LABS: Hypochromasia 1+ (NORMAL); Platelet Estimate Adequate (Adequate); Schistocytes None Seen (NORMAL)
[2023-06-18] MEDS: UMECLIDINIUM/VILANTEROL 62.5-25 MCG ELLIPTA 1 PUFF INHALATION (07:43)
[2023-06-18 08:11] LABS: Glucose Point of Care 111 mg/dl (65-105)
[2023-06-18] MEDS: PREGABALIN (*CRX) 50 MG CAPSULE 100 MG PO ×2 (09:19→21:51)
[2023-06-18] MEDS: MIDODRINE HCL 2.5 MG TABLET 5 MG PO ×3 (09:19→16:42)
[2023-06-18] MEDS: SPIRONOLACTONE 12.5 MG TABLET PO (09:19)
[2023-06-18] MEDS: AMIODARONE HCL 200 MG TABLET 400 MG PO (09:19)
[2023-06-18] MEDS: DULoxetine HCL 60 MG CAPSULE.DR PO (09:20)
[2023-06-18] MEDS: FUROSEMIDE INJ 40 MG/4 ML VIAL IV PUSH (09:20)
[2023-06-18] MEDS: EMPAGLIFLOZIN 25 MG TABLET PO (09:20)
[2023-06-18] MEDS: CLOPIDOGREL BISULFATE 75 MG TABLET PO (09:20)
[2023-06-18] MEDS: METOPROLOL SUCCINATE EXT REL 12.5 MG TABCR PO ×2 (09:20→16:42)
[2023-06-18] MEDS: INSULIN ASPART (*BKC) 100 UNITS/ML 10 UNITS SUB-Q ×3 (09:27→17:08)
--- NOTE | 2023-06-18 11:17 | PM.IMPN ---
Progress Note: A&P Assessment and Plan (1) Acute on chronic combined systolic (congestive) and diastolic (congestive) heart failure: Code(s): I50.43 - Acute on chronic combined systolic (congestive) and diastolic (congestive) heart failure Status: Acute Assessment and Plan: Continue IV diuresis, strict I&Os, daily weights Daily BMP (2) Moderate sized pleural effusion: Code(s): J90 - Pleural effusion, not elsewhere classified Status: Acute Assessment and Plan: Will likely improve with diuresis, monitor (3) Pulmonary infiltrate on chest x-ray: Code(s): R91.8 - Other nonspecific abnormal finding of lung field Status: Acute Assessment and Plan: See above (4) Edema of left lower extremity: Code(s): R60.0 - Localized edema Status: Acute Assessment and Plan: Unsure if patient has cellulitis or chronic venous stasis dermatitis, check blood cultures, PCT/CRP Cont rocephin, check MRSA swab Plan DVT prophylaxis with SCDs GI prophylaxis not indicated Code status full code Subjective Date/time seen: 06/18/23 11:17 Interval history: 57-year-old female with a history of CHF, COPD, hypertension, diabetes, hyperlipidemia presenting with shortness of breath and currently being treated for heart failure exacerbation. No overnight events noted. No chest pain or shortness of breath. No nausea, vomiting or diarrhea. No fevers or chills. C/o LLE foot pain. Review of Systems Review of Systems: 12 point review of systems was assessed and was negative except as noted in the HPI Exam Narrative: General: No acute distress, alert and oriented per baseline HEENT: Atraumatic, normocephalic, mucous membranes moist CV: Regular rate and rhythm, S1, S2 Lungs: Clear to auscultation bilaterally, no rales or crackles noted, no wheezes, good air entry Abdomen: Soft, nontender, nondistended Extremities: RLE BKA noted, LLE with erythema over foot and tibia area, warm to the touch, no fluctuance or drainage noted, area of necrosis and ulceration over great toe Skin: No rashes noted, no lesions or wounds seen Psych: Euthymic, normal affect Objective Data Vital Signs Vital Signs: Vital Signs - 24 hr 06/17/23 12:00 06/17/23 14:00 06/17/23 16:02 Temperature 97.6 F Pulse Rate 112 H 100 Respiratory Rate 20 Blood Pressure 120/65 Pulse Oximetry 96 95 Oxygen Delivery Nasal Cannula Oxygen Flow Rate 1.5 06/17/23 16:00 06/17/23 19:50 06/17/23 20:05 Temperature Pulse Rate 98 100 96 Respiratory Rate 20 20 Blood Pressure Pulse Oximetry Oxygen Delivery Oxygen Flow Rate 06/17/23 20:49 06/17/23 20:45 06/17/23 20:00 Temperature 97.7 F Pulse Rate 101 H 99 Respiratory Rate 18 Blood Pressure 116/68 Pulse Oximetry 96 96 Oxygen Delivery Nasal Cannula Oxygen Flow Rate 1.5 06/18/23 05:22 06/17/23 20:00 06/18/23 00:00 Temperature 97.5 F L Pulse Rate 80 100 92 Respiratory Rate 18 Blood Pressure 102/80 Pulse Oximetry 99 Oxygen Delivery Oxygen Flow Rate 06/18/23 04:00 06/18/23 07:45 06/18/23 07:45 Temperature Pulse Rate 82 82 82 Respiratory Rate 18 18 Blood Pressure Pulse Oximetry 95 Oxygen Delivery Nasal Cannula Oxygen Flow Rate 1.5 06/18/23 09:19 06/18/23 09:20 06/18/23 08:00 Temperature Pulse Rate 93 93 93 Respiratory Rate 18 Blood Pressure Pulse Oximetry 95 Oxygen Delivery Nasal Cannula Oxygen Flow Rate 2 Intake/Output Intake/Output: Intake & Output 06/15/23 06/16/23 06/17/23 06/18/23 23:59 23:59 23:59 23:59 Intake Total 944 480 Output Total 1300 600 Balance -356 -120 Meds/Results Medications: Active Medications Generic Name Dose Route Start Last Admin Trade Name Primoq PRN Reason Stop Dose Admin Acetaminophen 650 mg 06/17/23 06:33 Acetaminophen 325 Mg Tablet PO Q4H PRN Mild Pain
[2023-06-18] MEDS: INSULIN GLARGINE (*BKC) 100 UNITS/ML 8 UNITS SUB-Q (11:59)
[2023-06-18 12:07] LABS: Glucose Point of Care 214 mg/dl (65-105)
[2023-06-18 14:48] LABS: CRP 1.6 mg/dL (<1.0)
[2023-06-18] MEDS: CYCLOBENZAPRINE HCL 10 MG TABLET PO (15:56)
[2023-06-18] MEDS: HYDROcodone/acetaminophen (*CRX) 5-325 MG TABLET 1 TAB PO ×2 (15:56→21:49)
[2023-06-18 17:14] LABS: Glucose Point of Care 90 mg/dl (65-105)
[2023-06-18 20:58] LABS: Glucose Point of Care 80 mg/dl (65-105)
[2023-06-18] MEDS: ALPRAZolam (*CRX) 0.5 MG TABLET PO (21:49)
[2023-06-19] VITALS (13 sets, daily range): BP systolic 100–120; BP diastolic 65–73; PULSE 59–106; RESP 18–20; TEMP 36.3–37; O2SAT 92–100
[2023-06-19] MEDS: LEVOTHYROXINE SODIUM 50 MCG TABLET PO (06:02)
[2023-06-19] MEDS: CYCLOBENZAPRINE HCL 10 MG TABLET PO ×2 (06:07→21:49)
[2023-06-19] MEDS: HYDROcodone/acetaminophen (*CRX) 5-325 MG TABLET 1 TAB PO (06:07)
[2023-06-19 08:09] LABS: Glucose Point of Care 148 mg/dl (65-105)
[2023-06-19] MEDS: UMECLIDINIUM/VILANTEROL 62.5-25 MCG ELLIPTA 1 PUFF INHALATION (08:55)
--- NOTE | 2023-06-19 09:42 | PM.IMPN ---
Progress Note: A&P Assessment and Plan (1) Acute on chronic combined systolic (congestive) and diastolic (congestive) heart failure: Code(s): I50.43 - Acute on chronic combined systolic (congestive) and diastolic (congestive) heart failure Status: Acute Assessment and Plan: Continue IV diuresis, strict I&Os, daily weights Daily BMP, bump in the patient's creatinine as well as BUN, DC IV diuresis today, transition to oral diuresis tomorrow 06/20 (2) Moderate sized pleural effusion: Code(s): J90 - Pleural effusion, not elsewhere classified Status: Acute Assessment and Plan: Will likely improve with diuresis, monitor Recheck chest x-ray 06/20 (3) Pulmonary infiltrate on chest x-ray: Code(s): R91.8 - Other nonspecific abnormal finding of lung field Status: Acute Assessment and Plan: See above (4) Edema of left lower extremity: Code(s): R60.0 - Localized edema Status: Acute Assessment and Plan: Unsure if patient has cellulitis or chronic venous stasis dermatitis, check blood cultures, PCT 0/CRP 1.6 Cont rocephin, check MRSA swab Significantly improved, monitor Check imaging to rule out any kind of underlying osteo Plan DVT prophylaxis with SCDs GI prophylaxis not indicated Code status full code Subjective Date/time seen: 06/19/23 09:42 Interval history: 57-year-old female with a history of CHF, COPD, hypertension, diabetes, hyperlipidemia presenting with shortness of breath and currently being treated for heart failure exacerbation. No overnight events noted. No chest pain or shortness of breath. No nausea, vomiting or diarrhea. No fevers or chills. C/o LLE foot pain, improving today from yesterday. Review of Systems Review of Systems: 12 point review of systems was assessed and was negative except as noted in the HPI Exam Narrative: General: No acute distress, alert and oriented per baseline HEENT: Atraumatic, normocephalic, mucous membranes moist CV: Regular rate and rhythm, S1, S2 Lungs: Clear to auscultation bilaterally, no rales or crackles noted, no wheezes, good air entry Abdomen: Soft, nontender, nondistended Extremities: RLE BKA noted, LLE with erythema over foot and tibia area, warm to the touch, no fluctuance or drainage noted, area of necrosis and ulceration over great toe, decreased erythema and swelling from yesterday Skin: No rashes noted, no lesions or wounds seen Psych: Euthymic, normal affect Objective Data Vital Signs Vital Signs: Vital Signs - 24 hr 06/18/23 14:24 06/18/23 16:42 06/18/23 12:00 Temperature 96.7 F L Pulse Rate 96 92 100 Respiratory Rate 17 Blood Pressure 114/65 Pulse Oximetry 100 Oxygen Delivery Oxygen Flow Rate 06/18/23 16:00 06/18/23 20:31 06/18/23 21:00 Temperature 97.9 F Pulse Rate 80 93 90 Respiratory Rate 22 H Blood Pressure 95/63 L Pulse Oximetry 97 Oxygen Delivery Oxygen Flow Rate 06/19/23 00:00 06/19/23 04:00 06/18/23 20:47 Temperature Pulse Rate 83 83 Respiratory Rate Blood Pressure Pulse Oximetry 93 Oxygen Delivery Nasal Cannula Oxygen Flow Rate 2 06/19/23 05:00 Temperature 97.6 F Pulse Rate 88 Respiratory Rate 18 Blood Pressure 111/72 Pulse Oximetry 97 Oxygen Delivery Oxygen Flow Rate Intake/Output Intake/Output: Intake & Output 06/16/23 06/17/23 06/18/23 06/19/23 23:59 23:59 23:59 23:59 Intake Total 944 1510 240 Output Total 1300 1200 300 Balance -356 310 -60 Meds/Results Medications: Active Medications Generic Name Dose Route Start Last Admin Trade Name Freq PRN Reason Stop Dose Admin Acetaminophen 650 mg 06/17/23 06:33 Acetaminophen 325 Mg Tablet PO Q4H PRN Mild Pain (1-3) or Fever Hydrocodone Bitart/Acetaminophen 1 tab 06/18/23 15:27 06/19/23 06:07 Hydrocodone/Acetaminophen (*Crx) 5-325 Mg Tablet PO 1 tab Q4H PRN Admi
[2023-06-19] MEDS: METOPROLOL SUCCINATE EXT REL 12.5 MG TABCR PO ×2 (09:55→16:54)
[2023-06-19] MEDS: PREGABALIN (*CRX) 50 MG CAPSULE 100 MG PO ×2 (09:57→21:49)
[2023-06-19] MEDS: AMIODARONE HCL 200 MG TABLET 400 MG PO (09:58)
[2023-06-19] MEDS: EMPAGLIFLOZIN 25 MG TABLET PO (09:58)
[2023-06-19] MEDS: ENOXAPARIN 40 MG/0.4 ML SYRINGE SUB-Q (09:58)
[2023-06-19] MEDS: MIDODRINE HCL 2.5 MG TABLET 5 MG PO ×3 (09:58→16:56)
[2023-06-19] MEDS: FUROSEMIDE INJ 40 MG/4 ML VIAL IV PUSH (09:58)
[2023-06-19] MEDS: CLOPIDOGREL BISULFATE 75 MG TABLET PO (09:58)
[2023-06-19] MEDS: DULoxetine HCL 60 MG CAPSULE.DR PO (09:58)
[2023-06-19] MEDS: INSULIN ASPART (*BKC) 100 UNITS/ML 10 UNITS SUB-Q ×2 (10:01→12:03)
[2023-06-19] MEDS: SPIRONOLACTONE 12.5 MG TABLET PO (10:13)
[2023-06-19 10:53] LABS: Basophils Absolute Auto 0.1 K/mm3 (0.0-0.1); Basophils Percent Auto 0.9 % (0.2-1.2); Eosinophils Absolute Auto 0.2 K/mm3 (0-0.3); Eosinophils Percent Auto 3.2 % (0-4.4); Hematocrit 39.7 % (37.0-47.0); Hemoglobin 11.2 g/dL (12.0-15.0); Immature Granulocyte Absolute 0.02 K/mm3 (0.00-0.031); Immature Granulocyte Percent A 0.3 % (0-0.5); Immature Platelet Fraction Pct 10.2 % (0.9-11.2); Lymphocytes Absolute Auto 2.22 K/mm3 (0.9-3.2); Lymphocytes Percent Auto 29.4 % (18.3-44.2); Mean Corpuscular HGB Conc 28.2 g/dl (32-36); Mean Corpuscular Hemoglobin 23.5 pg (26-34); Mean Corpuscular Volume 83.2 fl (80-100); Mean Platelet Volume 12.7 fl (7.4-10.4); Monocytes Absolute Auto 0.5 K/mm3 (0.1-0.6); Monocytes Percent Auto 6.1 % (2.6-8.5); Neutrophils Absolute Auto 4.6 K/mm3 (1.3-6.7); Neutrophils Percent Auto 60.1 % (45.5-73.1); Nucleated Red Blood Cells Perc 0.3 % (0.0-0.2); Platelet Count Result 161 k/mm3 (150-375); Red Blood Count 4.77 M/mm3 (4.2-5.4); Red Cell Distribution Width 16.3 % (11.5-14.5); White Blood Count 7.6 K/mm3 (4.5-10.0)
[2023-06-19 11:00] LABS: Alanine Aminotransferase 21 U/L (6-35); Albumin Level 3.7 g/dL (3.5-5.1); Alkaline Phosphatase 96 U/L (38-126); Anion Gap 8 mmol/L (8-16); Aspartate Amino Transferase 28 U/L (14-36); Bilirubin,Total 0.7 mg/dL (0.2-1.3); Blood Urea Nitrogen 29 mg/dL (7-17); Calcium 7.9 mg/dL (8.4-10.2); Carbon Dioxide 26 mmol/L (22-30); Chloride 106 mmol/L (98-107); Estimated CRCL calculation 45 ml/min; Estimated Glomerular Filt Rate 46; Glucose 239 mg/dL (65-110); Potassium 3.9 mmol/L (3.4-5.0); Sodium 140 mmol/L (137-145)
[2023-06-19 11:09] LABS: Platelet Estimate Adequate (Adequate)
[2023-06-19 11:10] LABS: Hypochromasia 1+ (NORMAL); Ovalocytes 1+ (NORMAL); Poikilocytosis 1+ (NORMAL); Schistocytes None Seen (NORMAL)
[2023-06-19] MEDS: INSULIN GLARGINE (*BKC) 100 UNITS/ML 8 UNITS SUB-Q (12:02)
[2023-06-19 12:10] LABS: Glucose Point of Care 190 mg/dl (65-105)
[2023-06-19 16:32] LABS: Glucose Point of Care 62 mg/dl (65-105)
[2023-06-19] MEDS: FUROSEMIDE 40 MG TABLET BY MOUTH (16:54)
[2023-06-19 18:26] LABS: Glucose Point of Care 109 mg/dl (65-105)
[2023-06-19 19:05] LABS: Glucose Point of Care 183 mg/dl (65-105)
[2023-06-19 20:44] LABS: Glucose Point of Care 253 mg/dl (65-105)
[2023-06-19] MEDS: ALPRAZolam (*CRX) 0.5 MG TABLET PO (21:49)
[2023-06-20] VITALS (8 sets, daily range): BP systolic 104–136; BP diastolic 63–84; PULSE 76–98; RESP 20; TEMP 36.2–36.4; O2SAT 95–96
--- NOTE | 2023-06-20 01:22 | PC.NURSE ---
Daylight Savings Time For Daylight Savings Time Ending in the Fall - Clocks are moved back. For Daylight Savings Time Beginning in the Spring - Clocks are moved ahead. For [facility], the time of change occurs at 0200 hrs. Time is taken from the cafeteria food server. This entry on the patient's chart recognizes the change in time reflected during documentation. Example: 2 entries for vital signs may be charted for 0200 hrs.
[2023-06-20] MEDS: LIDOCAINE 5% PATCH 2 PATCH TRANSDERM ×2 (02:15→10:54)
[2023-06-20 06:20] LABS: Basophils Absolute Auto 0.1 K/mm3 (0.0-0.1); Basophils Percent Auto 0.9 % (0.2-1.2); Eosinophils Absolute Auto 0.2 K/mm3 (0-0.3); Hematocrit 36.2 % (37.0-47.0); Hemoglobin 10.5 g/dL (12.0-15.0); Immature Granulocyte Absolute 0.03 K/mm3 (0.00-0.031); Immature Granulocyte Percent A 0.4 % (0-0.5); Lymphocytes Absolute Auto 2.02 K/mm3 (0.9-3.2); Mean Corpuscular Hemoglobin 23.7 pg (26-34); Mean Corpuscular Volume 81.7 fl (80-100); Mean Platelet Volume 11.3 fl (7.4-10.4); Monocytes Absolute Auto 0.5 K/mm3 (0.1-0.6); Monocytes Percent Auto 6.4 % (2.6-8.5); Neutrophils Absolute Auto 4.9 K/mm3 (1.3-6.7); Neutrophils Percent Auto 63.3 % (45.5-73.1); Platelet Count Result 189 k/mm3 (150-375); Red Blood Count 4.43 M/mm3 (4.2-5.4); Red Cell Distribution Width 16.1 % (11.5-14.5); White Blood Count 7.8 K/mm3 (4.5-10.0)
[2023-06-20] MEDS: LEVOTHYROXINE SODIUM 50 MCG TABLET PO (06:22)
[2023-06-20 06:29] LABS: Alanine Aminotransferase 19 U/L (6-35); Albumin Level 3.5 g/dL (3.5-5.1); Alkaline Phosphatase 95 U/L (38-126); Anion Gap 7 mmol/L (8-16); Aspartate Amino Transferase 19 U/L (14-36); Bilirubin,Total 0.5 mg/dL (0.2-1.3); Blood Urea Nitrogen 26 mg/dL (7-17); Calcium 7.9 mg/dL (8.4-10.2); Carbon Dioxide 27 mmol/L (22-30); Chloride 105 mmol/L (98-107); Estimated CRCL calculation 49 ml/min; Estimated Glomerular Filt Rate 51; Glucose 250 mg/dL (65-110); Potassium 3.8 mmol/L (3.4-5.0); Sodium 139 mmol/L (137-145)
[2023-06-20 06:48] LABS: Hypochromasia 1+ (NORMAL); Platelet Estimate Adequate (Adequate)
[2023-06-20 06:49] LABS: Anisocytosis 1+ (NORMAL); Poikilocytosis 1+ (NORMAL); Schistocytes None Seen (NORMAL)
[2023-06-20] MEDS: UMECLIDINIUM/VILANTEROL 62.5-25 MCG ELLIPTA 1 PUFF INHALATION (07:50)
[2023-06-20 08:20] LABS: Glucose Point of Care 184 mg/dl (65-105)
[2023-06-20] MEDS: AMIODARONE HCL 200 MG TABLET 400 MG PO (10:51)
[2023-06-20] MEDS: SPIRONOLACTONE 12.5 MG TABLET PO (10:51)
[2023-06-20] MEDS: DULoxetine HCL 60 MG CAPSULE.DR PO (10:52)
[2023-06-20] MEDS: EMPAGLIFLOZIN 25 MG TABLET PO (10:53)
[2023-06-20] MEDS: MIDODRINE HCL 2.5 MG TABLET 5 MG PO ×3 (10:53→18:20)
[2023-06-20] MEDS: CLOPIDOGREL BISULFATE 75 MG TABLET PO (10:53)
[2023-06-20] MEDS: PREGABALIN (*CRX) 50 MG CAPSULE 100 MG PO (10:53)
[2023-06-20] MEDS: FUROSEMIDE 40 MG TABLET 80 MG BY MOUTH (10:53)
[2023-06-20] MEDS: METOPROLOL SUCCINATE EXT REL 12.5 MG TABCR PO ×2 (10:53→18:20)
[2023-06-20] MEDS: INSULIN ASPART (*BKC) 100 UNITS/ML 10 UNITS SUB-Q ×2 (11:22→18:19)
[2023-06-20 12:08] LABS: Glucose Point of Care 141 mg/dl (65-105)
[2023-06-20] MEDS: INSULIN GLARGINE (*BKC) 100 UNITS/ML 8 UNITS SUB-Q (12:19)
--- NOTE | 2023-06-20 16:11 | PM.DS ---
DS: Admitting Diagnosis Discharge Date 06/20/23 Admitting Diagnosis sob DS: Discharge Diagnosis Discharge Diagnosis (1) Acute on chronic combined systolic (congestive) and diastolic (congestive) heart failure: Code(s): I50.43 - Acute on chronic combined systolic (congestive) and diastolic (congestive) heart failure Status: Acute Assessment and Plan: Continue IV diuresis, strict I&Os, daily weights Daily BMP, bump in the patient's creatinine as well as BUN, DC IV diuresis today, transition to oral diuresis tomorrow 06/20 (2) Moderate sized pleural effusion: Code(s): J90 - Pleural effusion, not elsewhere classified Status: Acute Assessment and Plan: Will likely improve with diuresis, monitor Recheck chest x-ray 06/20 (3) Pulmonary infiltrate on chest x-ray: Code(s): R91.8 - Other nonspecific abnormal finding of lung field Status: Acute Assessment and Plan: See above (4) Edema of left lower extremity: Code(s): R60.0 - Localized edema Status: Acute Assessment and Plan: Unsure if patient has cellulitis or chronic venous stasis dermatitis, check blood cultures, PCT 0/CRP 1.6 Cont rocephin, check MRSA swab Significantly improved, monitor Check imaging to rule out any kind of underlying osteo Plan DVT prophylaxis with SCDs GI prophylaxis not indicated Code status full code DS: Summary Hospital Course Hospital Course: 57-year-old female with a history of CHF, COPD, hypertension, diabetes, hyperlipidemia presenting with shortness of breath and currently being treated for heart failure exacerbation. Continue IV diuresis, strict I&Os, daily weights Daily BMP, bump in the patient's creatinine as well as BUN, DC IV diuresis today, transition to oral diuresis tomorrow 06/20 Patient also had some pain in her foot that improved with antibiotic administration and was discharged on oral antibiotics. Repeat chest x-ray essentially unchanged, but patient symptomatically feeling much better and requesting to go home. Please see above and med rec for details. Time Spent with Patient Time attestation: Total time spent providing and/or coordinating discharge services: Exam Narrative: General: No acute distress, alert and oriented per baseline HEENT: Atraumatic, normocephalic, mucous membranes moist CV: Regular rate and rhythm, S1, S2 Lungs: Clear to auscultation bilaterally, no rales or crackles noted, no wheezes, good air entry Abdomen: Soft, nontender, nondistended Extremities: RLE BKA noted, LLE with erythema over foot and tibia area, warm to the touch, no fluctuance or drainage noted, area of necrosis and ulceration over great toe, decreased erythema and swelling from yesterday Skin: No rashes noted, no lesions or wounds seen Psych: Euthymic, normal affect DS: Data Data Completed and Pending Labs on day of discharge: Labs from last 24 hours 06/20/23 06/20/23 06/20/23 11:52 08:03 06:05 WBC 7.8 RBC 4.43 Hgb 10.5 L Hct 36.2 L MCV 81.7 MCH 23.7 L MCHC 29.0 L RDW 16.1 H Plt Count 189 MPV 11.3 H Immature Gran % (Auto) 0.4 Neut % (Auto) 63.3 Lymph % (Auto) 26.0 [place] % (Auto) 6.4 Eos % (Auto) 3.0 Baso % (Auto) 0.9 Lymph # (Auto) 2.02 [place] # (Auto) 0.5 Eos # (Auto) 0.2 Baso # (Auto) 0.1 Abs Immat Gran (auto) 0.03 Absolute Neuts (auto) 4.9 Absolute Nucleated RBC 0.0 Nucleated RBC % 0.0 Platelet Estimate Adequate Hypochromasia 1+ Poikilocytosis 1+ Anisocytosis 1+ Schistocytes None seen Sodium 139 Potassium 3.8 Chloride 105 Carbon Dioxide 27 Anion Gap 7 L BUN 26 H Creatinine 1.10 H Estim Creat Clear Calc 49 Estimated GFR 51 L Glucose 250 H POC Capillary Glucose 141 H 184 H Calcium 7.9 L Total Bilirubin 0.5 AST 19 ALT 19 Alkaline Phosphatase 95 Total Protein 6.0 L Albumin
[2023-06-20 17:06] LABS: Glucose Point of Care 183 mg/dl (65-105)
[2023-06-20] MEDS: FUROSEMIDE 40 MG TABLET BY MOUTH (18:19)
[2023-06-20 20:29] LABS: Glucose Point of Care 206 mg/dl (65-105)
== END 2023-06-20 20:52 | disposition home or self-care (01) | DRG 291 ==
LOC: ANHED 05:15 → ANH3MEDSUR 07:16
PROVIDERS: Admitting Provider Student in an Organized Health Care Education/Training Program; Emergency Provider Emergency Medicine; PCP Emergency Medicine; Visit Provider Student in an Organized Health Care Education/Training Program
DX: I11.0 Hypertensive heart disease with heart failure (principal); I50.43 Acute on chronic combined systolic (congestive) and diastolic (congestive) heart failure; L03.116 Cellulitis of left lower limb; R91.8 Other nonspecific abnormal finding of lung field; I87.2 Venous insufficiency (chronic) (peripheral); L97.529 Non-pressure chronic ulcer of other part of left foot with unspecified severity; E78.5 Hyperlipidemia, unspecified; I25.10 Atherosclerotic heart disease of native coronary artery without angina pectoris; J44.9 Chronic obstructive pulmonary disease, unspecified; E11.610 Type 2 diabetes mellitus with diabetic neuropathic arthropathy; E11.42 Type 2 diabetes mellitus with diabetic polyneuropathy; E11.51 Type 2 diabetes mellitus with diabetic peripheral angiopathy without gangrene; G47.30 Sleep apnea, unspecified; Z20.822 Contact with and (suspected) exposure to COVID-19; Z79.4 Long term (current) use of insulin; Z95.5 Presence of coronary angioplasty implant and graft; Z90.49 Acquired absence of other specified parts of digestive tract; Z95.1 Presence of aortocoronary bypass graft; Z89.511 Acquired absence of right leg below knee; Z87.891 Personal history of nicotine dependence
CPT/HCPCS: 36415; 71045; 71046; 73630; 80048; 80053; 82948; 83880; 84145; 84484; 85025; 85055; 85610; 85730; 86140; 87040; 87081; 87636; 93005; 94640; 96365; 96366; 96367; 96375; 96376; 99285; A9270; G0378; J0456; J0696; J1650; J1815; J1940

== ENCOUNTER 2023-10-15 15:16 | Inpatient (IN) | payer MEDICARE, MEDICAID, SELFPAY ==
[2023-10-15] VITALS (17 sets, daily range): BP systolic 90–126; BP diastolic 55–89; PULSE 91–156; RESP 15–29; TEMP 36.4–36.5; O2SAT 91–100; BMI 29.7
--- NOTE | ~2023-10-15 | XR_ITS ---
XR chest 2V DATE: 10/24/2023 11:19 INDICATION: Shortness of breath TECHNIQUE: AP and lateral views COMPARISON: 10/17/2013 portable AP chest 10/15/2023 CTA chest FINDINGS: Persistent bilateral pleural effusions, left greater than right as well as infiltrate and/o r atelectasis in the lower lung zones, also greater on the left. Cardiomegaly. Status post coronary bypass graft surgery. Status post mitral valve replacement. Left-sided AICD/pacemaker device, the right ventricular lead making one loop in the right ventricle. IMPRESSION: Little interval change since 10/2023 Reviewed, dictated and finalized at location A.
--- NOTE | ~2023-10-15 | XR_ITS ---
EXAMINATION: XR chest 2V DATE: 10/15/2023 16:27 INDICATION: Shortness of breath. TECHNIQUE: Frontal and lateral views of the chest were obtained. COMPARISON: Chest 2 views 06/20/2023 FINDINGS: There are airspace opacities in right lower lung zone and left mid and lower lung zones. Th ere are small right and moderate-sized left pleural effusions. No pneumothorax. Cardiomegaly is noted . There are changes of coronary artery bypass grafting and heart valve replacement. There is a left c hest wall pacer with leads in the right atrium and right ventricle. There is a closure device at left atrial appendage. IMPRESSION: 1. Worsened small right and moderate-sized left pleural effusions. 2. Worsened airspace opacities in right lower lung zone and left mid and lower lung zones, consistent with atelectasis versus pneumonia. 3. Cardiomegaly. Reviewed, dictated and finalized at location A. ESS ENG
--- NOTE | ~2023-10-15 | XR_ITS ---
EXAMINATION: XR chest PICC line INDICATION: PICC insertion TECHNIQUE: Portable AP chest at 1917 hours COMPARISON: 1624 hours FINDINGS: A right upper extremity PICC has been inserted which ends with its tip at the superior cavo atrial junction. Cardiomegaly is noted. Small right and moderate-sized left pleural effusions persist without significant change. Bibasilar airspace opacities are stable. There is no pneumothorax. A guillermo l-lead cardiac pacemaker of the left chest wall ends with leads in expected locations. There are stover ges of prior cardiac surgery. IMPRESSION: 1. Right upper extremity PICC inserted ending with its tip at the superior cavoatrial junction. 2. Cardiomegaly. 3. Small right and moderate-sized left pleural effusion with associated airspace opacities, consisten t with atelectasis versus pneumonia. Reviewed, dictated and finalized at location F. ARATION OPERATOR IMPRESSION: 1. Right upper extremity PICC inserted ending with its tip at the superior cavo atrial junction. 2. Cardiomegaly. 3. Small right and moderate-sized left pleural effusion with associated airspac e opacities, consistent with atelectasis versus pneumonia.
--- NOTE | ~2023-10-15 | CT_ITS ---
EXAMINATION: CTA chest PE protocol DATE: 10/15/2023 20:03 INDICATION: Shortness of breath TECHNIQUE: Computed tomography angiography (CTA) of the chest was performed with 100 mL Omnipaque-350 intravenous contrast timed to evaluate the pulmonary arteries. Coronal maximum intensity projection 3D-reconstructions were created by the technologist. The dose-length product (DLP) was 965.36 mGy-cm. Automated exposure control and iterative reconstruction technique were employed. COMPARISON: 12/08/2022 FINDINGS: The pulmonary arteries are well-opacified. There are emboli in subsegmental branches of the right lower lobe. There are moderate-sized left and small right pleural effusion with associated pas sive atelectasis. Cardiomegaly is noted. There is no pneumothorax. There is a right perihilar upper l obe nodule measuring 14 mm. There is mild bilateral hilar lymphadenopathy. Mediastinal and aorticopul monary window lymphadenopathy are also noted. There are patchy airspace opacities of the mid and uppe r lung zones. There is no pneumothorax. There are changes of cholecystectomy. A right upper extremity PICC ends with its tip at the superior cavoatrial junction. There is moderate thoracic spondylosis. Vertebroplasty change is noted at L1. There is an L2 burst fracture. IMPRESSION: 1. Subsegmental pulmonary emboli of the right lower lobe. 2. Moderate size left and small right pleural effusions with associated passive atelectasis. 3. Patchy airspace opacities of the mid and upper lung zones, consistent with pneumonia versus pulmon dean edema. 4. 14 mm right perihilar upper lobe nodule concerning for primary bronchogenic carcinoma. Follow-up C T in three months is recommended. 5. Mediastinal and bilateral hilar lymphadenopathy, reactive versus metastatic disease. These findings and recommendations were discussed with Dr. Mary Jo MD in the Emergency Department at 2040 hours on 10/15/2023. Reviewed, dictated and finalized at location F. MITH IMPRESSION: 1. Subsegmental pulmonary emboli of the right lower lobe. 2. Moderate size left and small right pleural effusions with associated passive atelectasis. 3. Patchy airspace opacities of the mid and upper lung zones, consistent with p neumonia versus pulmonary edema. 4. 14 mm right perihilar upper lobe nodule concerning for primary bronchogenic carcinoma. Follow-up CT in three months is recommended. 5. Mediastinal and bilateral hilar lymphadenopathy, reactive versus metastatic disease. These findings and recommendations were discussed with Dr. Mary Jo MD in the Emergency Department at 2040 hours on 10/15/2023.
--- NOTE | ~2023-10-15 | US_ITS ---
EXAMINATION: US venous doppler [facility] DATE: 10/15/2023 16:26 INDICATION: Left lower limb swelling. TECHNIQUE: Grayscale ultrasound images without and with compression and Doppler ultrasound images of the left lower extremity veins were obtained. COMPARISON: Ultrasound 08/01/2022 FINDINGS: The visualized portions of left common femoral vein, profunda (deep) femoral vein, femoral vein, popl iteal vein, and greater saphenous vein outflow are patent. The calf veins are not well visualized. IMPRESSION: 1. No deep venous thrombosis. Reviewed, dictated and finalized at location A. S SALES ASSOCIATE
--- NOTE | ~2023-10-15 | XR_ITS ---
EXAMINATION: XR chest 1V portable DATE: 10/17/2023 12:53 INDICATION: Pleural effusion. Infiltrates. TECHNIQUE: A single frontal view of the chest was obtained. COMPARISON: Chest single view 10/15/2023, chest CT 10/15/2023 FINDINGS: There is a moderate-sized left pleural effusion. There are airspace opacities at left lung base. No pneumothorax. Cardiomegaly is noted. Median sternotomy wires and mediastinal surgical clips are seen, likely from prior coronary artery bypass grafting. There are changes of mitral valve replac ement. There is a left chest wall pacer with leads in the right atrium and right ventricle. A right u pper extremity peripherally inserted central venous catheter (PICC) is seen with tip in the superior vena cava. IMPRESSION: 1. Stable moderate-sized left pleural effusion. 2. Airspace opacities at left lung base, consistent with atelectasis versus pneumonia. 3. Cardiomegaly. Reviewed, dictated and finalized at location A. ND WATER CONTRACTOR IMPRESSION: 1. Stable moderate-sized left pleural effusion. 2. Airspace opacities at left lung base, consistent with atelectasis versus pne umonia. 3. Cardiomegaly.
--- NOTE | ~2023-10-15 | US_ITS ---
EXAMINATION: US renal BI DATE: 10/17/2023 17:44 INDICATION: Acute kidney injury rule out hydronephrosis TECHNIQUE: Multiple grayscale and Doppler ultrasound images of the kidneys were obtained. COMPARISON: None. FINDINGS: The right kidney measures 10.9 x 4.7 x 5.5 cm. The left kidney measures 9.0 x 4.5 x 5.0 cm. The kidne ys demonstrate normal parenchymal echogenicity. The inferior left kidney pole obscured by bowel gas. There is no hydronephrosis. The bladder is not well visualized. IMPRESSION: No sonographic evidence of hydronephrosis. Reviewed, dictated and finalized at location K. IFIED ENERGY MANAGER
--- NOTE | ~2023-10-15 | XR_ITS ---
EXAMINATION: XR chest 1V portable DATE: 10/18/2023 06:08 INDICATION: Pneumonia. Pleural effusion. TECHNIQUE: A single frontal view of the chest was obtained. COMPARISON: Chest view 10/17/2023 FINDINGS: There is a moderate-sized left pleural effusion. There are airspace opacities at left lung base. No pneumothorax. Cardiomegaly is noted. There are changes of coronary artery bypass grafting an d heart valve replacement. There is a left chest wall pacer with leads in the right atrium and right ventricle. There is a closure device at left atrial appendage. A right upper extremity peripherally i nserted central venous catheter (PICC) is seen with tip in the superior vena cava. IMPRESSION: 1. Stable moderate-sized left pleural effusion. 2. Stable airspace opacities at left lung base, consistent with atelectasis versus pneumonia. 3. Cardiomegaly. Reviewed, dictated and finalized at location E. 7TH GRADE SOCIAL STUDIES TEACHER IMPRESSION: 1. Stable moderate-sized left pleural effusion. 2. Stable airspace opacities at left lung base, consistent with atelectasis laurie zac pneumonia. 3. Cardiomegaly.
--- NOTE | ~2023-10-15 | CT_ITS ---
EXAMINATION: CT brain wo con INDICATION: Transient alteration of awareness COMPARISON: 03/30/2022 TECHNIQUE: Standard unenhanced head CT. The dose-length product (DLP) was 1362.00 mGy-cm. The mA was adjusted according to patient size. Iterative reconstruction technique was employed. FINDINGS: Motion artifact limits the examination. No acute intraparenchymal hemorrhage. No evidence o f mass lesion. No evidence of acute infarction. There is mild periventricular and subcortical hypoden sity probably related to small vessel ischemic disease. There is mild prominence of the sulci and jag tricles related to cerebral atrophy. Intracranial calcified cerebral atherosclerosis is noted. No ext ra-axial collections. No mass effect or midline shift. The orbits and soft tissues are unremarkable. The visualized sinuses and mastoid air cells are well aerated. IMPRESSION: 1. No acute intracranial abnormality. 2. Age related findings. Reviewed, dictated and finalized at location F. PREVENTION GUARD
--- NOTE | 2023-10-15 15:27 | ECG_ITS ---
Measurements Intervals Backus Rate: 99 P: 65 CT: 192 QRS: -35 QRSD: 99 T: 90 QT: 322 QTc: 414 Interpretive Statements SINUS RHYTHM ATRIAL AND VENTRICULAR PREMATURE COMPLEXES LEFT AXIS DEVIATION CONSIDER INFERIOR INFARCT, AGE INDETERMINATE BORDERLINE ST-T WAVE ABNORMALITY- HIGH LATERAL LEADS BASELINE ARTIFACT- I, III, AVR, AVL, AVF, V2, V4-V5 ABNORMAL ECG COMPARED TO ECG 06/18/2023 09:23:54 LEFT-AXIS DEVIATION NOW PRESENT Electronically Signed On 10-15-2023 16:09:50 FIREWALL ADMINISTRATOR by Mike Bernardo D.O.
--- NOTE | 2023-10-15 15:51 | ED.GENADULT ---
HPI - General Adult General Chief complaint: Shortness of Breath/Dyspnea <Miller Collins MD - Last Filed: 10/16/23 07:04> Stated complaint: SOB <Miller Collins MD - Last Filed: 10/16/23 07:04> Time Seen by Provider: 10/15/23 15:21 <Miller Collins MD - Last Filed: 10/16/23 07:04> History of Present Illness HPI narrative: 58-year-old female presenting to the emergency department for evaluation of not feeling well for the last few days, cough and shortness of breath and rapid heart rate. Patient reports last night she had a coughing fit with associated syncope. Patient does have left lower extremity edema and does complain shortness of breath. <Miller Collins MD - Last Filed: 10/16/23 07:04> Related Data Home medications: Home Medications Medication Instructions Recorded Confirmed insulin lispro 100 unit/mL 10 unit subcut TIDWM 03/30/22 10/15/23 subcutaneous solution (Admelog U-100 Insulin lispro) evolocumab 140 mg/mL subcutaneous 140 mg subcut [id number] 06/15/22 10/16/23 pen injector (Bety Friedman) amiodarone 200 mg tablet 400 mg PO DAILY 11/19/22 10/15/23 midodrine 5 mg tablet 5 mg PO TID 04/13/23 10/15/23 cyclobenzaprine 10 mg tablet 10 mg PO TID PRN muscle spasms 05/19/23 10/15/23 duloxetine 60 mg capsule,delayed 60 mg PO DAILY 05/28/23 10/15/23 release empagliflozin 25 mg tablet 25 mg PO DAILY 05/28/23 10/15/23 (Jardiance) insulin glargine 100 unit/mL (3 8 unit subcut .COMPLEX 05/28/23 10/15/23 mL) subcutaneous pen (Basaglar KwkatiePen U-100 Insulin) spironolactone 25 mg tablet 12.5 mg PO DAILY 05/28/23 10/16/23 sacubitril 24 mg-valsartan 26 mg 1 tablet PO BID 10/15/23 10/16/23 tablet (Entresto) <Miller Collins MD - Last Filed: 10/16/23 07:04> Allergies/adverse reactions: Allergies Allergy/AdvReac Type Severity Reaction Status Date / Time methantheline Allergy Unknown Verified 05/19/23 13:07 propofol Allergy Agitated Verified 05/19/23 13:07 [id number] Reductase AdvReac Intermediate MYALGIAS Verified 05/19/23 13:07 Inhibitor <Miller Collins MD - Last Filed: 10/16/23 07:04> Review of Systems Review of Systems: All systems reviewed & are unremarkable except as noted in HPI and below <Miller Collins MD - Last Filed: 10/16/23 07:04> [facility] Past Medical History Medical History: Medical History Anxiety Charcot's joint of foot in type 2 diabetes mellitus Of the right foot Chronic obstructive pulmonary disease Coronary artery disease Left anterior descending stent 01/2019. Usual general operations manager is Dr. Jasyon Durant. 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 Peripheral vascular disease due to secondary diabetes Serotonin syndrome Suspected sleep apnea AHI 35 on apnea link on 06/16/2022. <Miller Collins MD - Last Filed: 10/16/23 07:04> Surgical History Surgical History: Surgical History History of appendectomy History of section x3 History of hysterectomy Partial, ovaries retained. Due to cervical changes. History of tonsillectomy and adenoidectomy History of vertebroplasty Hx of BKA Right 11/19/20 at [facility] S/P CABG x 5 w/MVR and left atrial appendage ligation Status post cholecystectomy Stented coronary artery X1 <Miller Collins MD - Last Filed: 10/16/23 07:04> Family History Family History: Family History Sibling Diabetes mellitus Mother H
[2023-10-15 16:03] LABS: Basophils Percent Auto 0.4 % (0.2-1.2); Eosinophils Percent Auto 0.2 % (0-4.4); Hematocrit 40.5 % (37.0-47.0); Hemoglobin 11.8 g/dL (12.0-15.0); Immature Granulocyte Absolute 0.04 K/mm3 (0.00-0.031); Immature Granulocyte Percent A 0.4 % (0-0.5); Lymphocytes Absolute Auto 1.04 K/mm3 (0.9-3.2); Lymphocytes Percent Auto 9.8 % (18.3-44.2); Mean Corpuscular HGB Conc 29.1 g/dl (32-36); Mean Corpuscular Hemoglobin 23.4 pg (26-34); Mean Corpuscular Volume 80.4 fl (80-100); Mean Platelet Volume 11.5 fl (7.4-10.4); Monocytes Absolute Auto 0.5 K/mm3 (0.1-0.6); Monocytes Percent Auto 5.1 % (2.6-8.5); Neutrophils Absolute Auto 8.9 K/mm3 (1.3-6.7); Neutrophils Percent Auto 84.1 % (45.5-73.1); Platelet Count Result 200 k/mm3 (150-375); Red Blood Count 5.04 M/mm3 (4.2-5.4); Red Cell Distribution Width 17.3 % (11.5-14.5); White Blood Count 10.6 K/mm3 (4.5-10.0)
[2023-10-15] MEDS: METOPROLOL TARTRATE INJ 5 MG/5 ML VIAL IV PUSH (16:08)
[2023-10-15 16:14] LABS: Alanine Aminotransferase 37 U/L (6-35); Albumin Level 4.2 g/dL (3.5-5.1); Alkaline Phosphatase 121 U/L (38-126); Anion Gap 12 mmol/L (8-16); Aspartate Amino Transferase 51 U/L (14-36); Bilirubin,Total 1.2 mg/dL (0.2-1.3); Blood Urea Nitrogen 22 mg/dL (7-17); Calcium 8.9 mg/dL (8.4-10.2); Carbon Dioxide 15 mmol/L (22-30); Chloride 109 mmol/L (98-107); Estimated CRCL calculation 62 ml/min; Estimated Glomerular Filt Rate 57; Glucose 348 mg/dL (65-110); Potassium 3.8 mmol/L (3.4-5.0); Sodium 136 mmol/L (137-145)
[2023-10-15 16:23] LABS: NT Pro B Type Natriuretic Pept 5890 pg/mL (19.9-100)
[2023-10-15 16:40] LABS: Influenza A QL RT-PCR Negative (Negative); Influenza B QL RT-PCR Negative (Negative); RSV RNA, RT-PCR Negative (Negative); SARS-CoV-2 RNA PCR Negative (Negative)
--- NOTE | 2023-10-15 19:00 | PC.NURSE ---
1650- Pt returned from CT, IV infiltrated per CT, IV removed. Multiple attempts by 3 RNs for IV placement. Pt refusing further attempts. Dr. Collins notified. PICC line ordered.
[2023-10-15] MEDS: FUROSEMIDE INJ 40 MG/4 ML VIAL IV PUSH (20:25)
[2023-10-15 22:11] LABS: Lactic Acid Reflex 1.8 mmol/L (0.7-2.0)
[2023-10-15] MEDS: AZITHROMYCIN 500 MG/NS 250 ML 500 MG/250 ML BAG 250 MG IVPB (22:25)
[2023-10-15] MEDS: ENOXAPARIN 100 MG/ML SYRINGE 90 MG SUB-Q (22:25)
--- NOTE | 2023-10-15 23:22 | ADMGEN ---
This patient, Tiff Vaughn, was admitted to Medical Room 241-. Patient/family oriented to hospital policies and general routines including ID bracelet, bed and alarms, visiting hours, pain management, procedures, bathroom and other care routines, personal items, smoking policy, room service/diet, and visiting hours. Information on how to activate the Rapid Response Team has been discussed. Patient/Family are encouraged to report perceived risks to care and to ask questions if they do not understand what they are told or what they should do.
[2023-10-16] VITALS (14 sets, daily range): BP systolic 100–120; BP diastolic 42–63; PULSE 69–98; RESP 15–20; TEMP 36.4–36.8; O2SAT 90–100
[2023-10-16] MEDS: LEVOTHYROXINE SODIUM 50 MCG TABLET PO (05:04)
[2023-10-16 05:25] LABS: Hematocrit 33.4 % (37.0-47.0); Hemoglobin 9.8 g/dL (12.0-15.0); Mean Corpuscular HGB Conc 29.3 g/dl (32-36); Mean Corpuscular Hemoglobin 23.5 pg (26-34); Mean Corpuscular Volume 80.1 fl (80-100); Mean Platelet Volume 11.2 fl (7.4-10.4); Platelet Count Result 170 k/mm3 (150-375); Red Blood Count 4.17 M/mm3 (4.2-5.4); Red Cell Distribution Width 17.2 % (11.5-14.5)
[2023-10-16 05:35] LABS: Alanine Aminotransferase 35 U/L (6-35); Albumin Level 3.4 g/dL (3.5-5.1); Alkaline Phosphatase 103 U/L (38-126); Anion Gap 10 mmol/L (8-16); Aspartate Amino Transferase 44 U/L (14-36); Bilirubin,Total 0.8 mg/dL (0.2-1.3); Blood Urea Nitrogen 25 mg/dL (7-17); Calcium 8.3 mg/dL (8.4-10.2); Carbon Dioxide 16 mmol/L (22-30); Chloride 111 mmol/L (98-107); Estimated CRCL calculation 52 ml/min; Estimated Glomerular Filt Rate 46; Glucose 304 mg/dL (65-110); Potassium 3.9 mmol/L (3.4-5.0); Sodium 137 mmol/L (137-145)
[2023-10-16] MEDS: UMECLIDINIUM/VILANTEROL 62.5-25 MCG ELLIPTA 1 PUFF INHALATION (07:37)
[2023-10-16 08:42] LABS: Glucose Point of Care 270 mg/dl (65-105)
[2023-10-16] MEDS: INSULIN ASPART (*BKC) 100 UNITS/ML SUB-Q (09:42)
[2023-10-16] MEDS: INSULIN ASPART (*BKC) 100 UNITS/ML 10 UNITS SUB-Q ×2 (09:42→13:45)
[2023-10-16] MEDS: CLOPIDOGREL BISULFATE 75 MG TABLET PO (09:43)
[2023-10-16] MEDS: PREGABALIN (*CRX) 50 MG CAPSULE 100 MG PO ×2 (09:43→21:31)
[2023-10-16] MEDS: SACUBITRIL/VALSARTAN 24-26 MG TABLET 1 TAB PO ×2 (09:43→21:32)
[2023-10-16] MEDS: AMIODARONE HCL 200 MG TABLET 400 MG PO (09:43)
[2023-10-16] MEDS: ENOXAPARIN 100 MG/ML SYRINGE 90 MG SUB-Q ×2 (09:44→21:31)
[2023-10-16] MEDS: MIDODRINE HCL 2.5 MG TABLET 5 MG PO ×3 (09:44→18:23)
[2023-10-16] MEDS: DULoxetine HCL 60 MG CAPSULE.DR PO (09:44)
[2023-10-16] MEDS: METOPROLOL SUCCINATE EXT REL 12.5 MG TABCR PO ×2 (09:45→21:31)
[2023-10-16] MEDS: FUROSEMIDE INJ 40 MG/4 ML VIAL IV PUSH ×2 (09:52→21:31)
[2023-10-16] MEDS: SPIRONOLACTONE 12.5 MG TABLET PO (09:54)
--- NOTE | 2023-10-16 09:54 | PC.NURSE ---
12.5 mg Sprionolactone given without scanning. Pharmacy aware that barcode unable to be scanned and [place] Pharmacist said that this is a housewide problem since yesterday. IT also aware.
--- NOTE | 2023-10-16 11:05 | PM.IMHP ---
H&P: HPI History of Present Illness Date/Time: 10/16/23 11:05 Chief Complaint: Patient brought for evaluation from [facility] with worsening shortness of breath Narrative: 58 years old female with chronic medical issues is complaining of chronic shortness of breath for last low past few weeks for which she sees a lung doctor. Patient had worsening shortness of breath last night causing her to have a syncopal episode and she fell to the floor from a sitting position. EMS was called, patient was brought to the ER for evaluation, workup was done which showed the bilateral pneumonia and she was started on IV antibiotics and anticoagulation. She is feeling better during my evaluation at the bedside today. She is being admitted for medical management, telemonitoring, syncopal workup, pulmonary evaluation, IV antibiotics, anticoagulation and medical management. Review of Systems Review of Systems: 14 systems were reviewed with pertinent positives and negatives per HPI. Except as documented in the HPI/progress notes, all other systems were reviewed and are negative. All systems reviewed & are unremarkable except as noted in HPI and below PMFSH Past Medical History Medical History Anxiety Charcot's joint of foot in type 2 diabetes mellitus Of the right foot Chronic obstructive pulmonary disease Coronary artery disease Left anterior descending stent 01/2019. 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 Peripheral vascular disease due to secondary diabetes Serotonin syndrome Suspected sleep apnea AHI 35 on apnea link on 06/16/2022. Surgical History Surgical History History of appendectomy History of section x3 History of hysterectomy Partial, ovaries retained. Due to cervical changes. History of tonsillectomy and adenoidectomy History of vertebroplasty Hx of BKA Right 11/19/20 at [facility] S/P CABG x 5 w/MVR and left atrial appendage ligation Status post cholecystectomy Stented coronary artery X1 Family History Family History Sibling Diabetes mellitus Mother Heart failure Cardiomegaly Arthritis Atrial fibrillation Family history of osteoporosis Family history of Alzheimer's disease Hypertension Cardiomyopathy Acute myocardial infarction History of heart artery stent Congestive heart failure Daughter Anxiety Father Esophagus cancer Cancer of spinal column Social History Social History Social History: The patient is . The patient had 4 children and 1 of her daughters is now. She is disabled. She is a former smoker. She denies any alcohol marijuana or illicit drugs. Primarily wheelchair-bound. Surrogate medical decision maker: Jass Arciniega, son. Code status: Full code. Smoking packs per day: 1.5 Smoking cigarettes per day: 30.0 Years smoked: 20 Smoking pack-years: 30.00 Smoking status: Former smoker Additional smoking assessment comments: quit 2020 Alcohol intake: former Substance use: never Substance use type: does not use Other substance usage details: One edible 2 per week Last use: 12/05/22 Do You Feel Safe in your Home?: Yes Lack of Transportation: No Lack of Food: Often True Current Housing: I Have Housing Concerned About Future Housing: No Difficulty Paying Gas/Electric Bills: No Difficulty Paying for Meds: No Currently Unempl
[2023-10-16 12:21] LABS: Phosphorus 4.3 mg/dL (2.5-4.5)
[2023-10-16 12:33] LABS: Troponin I 0.027 ng/mL (0.000-0.034)
[2023-10-16 12:41] LABS: Glucose Point of Care 151 mg/dl (65-105)
[2023-10-16] MEDS: CENTRAL LINE FLUSH 10 ML IV PUSH ×2 (13:46→21:33)
[2023-10-16] MEDS: INSULIN GLARGINE (*BKC) 100 UNITS/ML 8 UNITS SUB-Q (13:46)
--- NOTE | 2023-10-16 14:09 | PM.CNCAR ---
Assessment and Plan Assessment and plan (1) Syncope: Code(s): R55 - Syncope and collapse Status: Acute Assessment and Plan: Her syncope is clearly related to coughing. This is test of syncope and no further workup needed because of syncope. She has a recent ICD implantation also (2) Pulmonary embolism: Code(s): I26.99 - Other pulmonary embolism without acute cor pulmonale Status: Acute Assessment and Plan: Per pulmonology (3) Acute on chronic systolic (congestive) heart failure: Code(s): I50.23 - Acute on chronic systolic (congestive) heart failure Status: Acute Assessment and Plan: Agree with IV diuresis with furosemide 40 mg IV q.12 hours. Continue spironolactone, metoprolol, Entresto, Jardiance at current dosing. Intake and output daily weights to be followed. Daily BMP (4) Coronary artery disease: Qualifiers: Coronary Disease-Associated Artery/Lesion type: [place] artery [place] vs. transplanted heart: unspecified whether [place] or transplanted heart Code(s): I25.10 - Atherosclerotic heart disease of [place] coronary artery without angina pectoris Status: Chronic Assessment and Plan: Continue anti-platelet and statin therapy (5) Ischemic cardiomyopathy: Code(s): I25.5 - Ischemic cardiomyopathy Status: Acute Assessment and Plan: Continue standard heart CHF regimen and agree with diuresis. Recent ICD implantation in August 2023. History of Present Illness History of Present Illness Consult date/time: 10/16/23 14:09 Requesting physician: Andre Mitchell MD Consult reason: Other (Syncope, poor EF) Reason For Visit: Pulmonary Embolus,CHF,Pneumonia Narrative: Reason for consultation: Syncope, poor EF Date of service 10/16/2023 Requesting provider: Dr. Mitchell History: She is a [id number] with a history of CAD s/p prior PCI, cardiomyopathy with LVEF 10-20% status post ICD implantation recently in August, peripheral arterial disease s/p bilateral iliac stents, history of right BKA, COPD, Diabetes, anxiety/depression, hyperlipidemia on Repatha, history of loop recorder who presented this time for shortness of breath. Patient states she has been progressively more short of breath and swollen over the past several weeks. She states that she has been especially more short of breath at night whenever she is trying to lay down and sleep. She also had a coughing spell yesterday whenever she was drinking and she aspirated she coughed significantly and incessantly and then later passed out. She was found to have bilateral pulmonary embolisms. She denies any chest pain, orthopnea. Does admit to worsening left lower extremity edema, dyspnea with activity, and weight gain Review of Systems Review of Systems: All systems reviewed & are unremarkable except as noted in HPI and below Constitutional: Constitutional: Denies body ache(s) Eyes: Eyes: Denies blurry vision ENT: Reports Normal hearing present Cardiovascular: Cardiovascular: Denies chest pain, Reports pedal edema and Reports leg edema Respiratory: Respiratory: Reports dyspnea Gastrointestinal: Gastrointestinal: Denies abdominal pain Genitourinary: Genitourinary: Denies hematuria Musculoskeletal: Musculoskeletal: Denies back pain Integumentary/Breasts: Skin/Breast: Denies dry skin Neurologic: Denies Abnormal speech present Psychiatric: Psychiatric: Denies anxiety Endocrine: Endocrine: Denies excessive sweating Hematologic/Lymphatic: Hematologic/Lymphatic: Denies easy bleeding Allergic/Immunologic: Allergic/Immunologic: Denies GI upset with certain foods PMFSH Past Medical History Medical History Anxiety Charcot's joint of foot in type 2 diabetes mellitus Of the right foot Chronic obstructive pulmonary disease Coronary artery disease Left anterior descending stent 01/2019. Usual card
[2023-10-16] MEDS: DEXTROSE 50% 25 GM/50 ML SYRINGE IV PUSH ×2 (17:09→22:08)
[2023-10-16 17:19] LABS: Glucose Point of Care 52 mg/dl (65-105)
[2023-10-16 17:55] LABS: Troponin I 0.024 ng/mL (0.000-0.034)
[2023-10-16 17:56] LABS: Glucose Point of Care 109 mg/dl (65-105)
[2023-10-16] MEDS: AZITHROMYCIN 500 MG/NS 250 ML 500 MG/250 ML BAG 250 MG IVPB (21:32)
[2023-10-16 21:57] LABS: Glucose Point of Care 64 mg/dl (65-105)
--- NOTE | 2023-10-16 22:08 | P.PNCROSS_ITS ---
Event Note Event Note Event Note: Cross Coverage: Patient eating 45-50% of her meals since arrival, during previous admissions has typically eaten 100%. Patient's blood sugar 64 at 9:53 p.m. RN instructed to follow hypoglycemia protocols. Patient is currently on NovoLog 10 units t.i.d. with meals, 8 units glargine daily, and moderate corrective dose ordered. Will hold mealtime insulin. Consider reducing long- acting if patient has additional hypoglycemic event.
[2023-10-16 22:29] LABS: Glucose Point of Care 146 mg/dl (65-105)
[2023-10-16] MEDS: VANCOMYCIN 1,250 MG/NS 250 ML 1,250 MG/250 ML BAG 166.67 MG IVPB (23:58)
[2023-10-17] VITALS (34 sets, daily range): BP systolic 63–136; BP diastolic 36–91; PULSE 65–96; RESP 12–20; TEMP 36.3–36.8; O2SAT 94–100
[2023-10-17] MEDS: VANCOMYCIN 1,000 MG/NS 250 ML 1,000 MG/250 ML BAG 250 MG IVPB (04:24)
[2023-10-17] MEDS: CENTRAL LINE FLUSH 10 ML IV PUSH ×3 (05:39→20:43)
[2023-10-17] MEDS: LEVOTHYROXINE SODIUM 50 MCG TABLET PO (05:40)
[2023-10-17 05:58] LABS: Basophils Percent Auto 0.5 % (0.2-1.2); Eosinophils Absolute Auto 0.1 K/mm3 (0-0.3); Eosinophils Percent Auto 1.5 % (0-4.4); Hematocrit 34.1 % (37.0-47.0); Hemoglobin 9.8 g/dL (12.0-15.0); Immature Granulocyte Absolute 0.02 K/mm3 (0.00-0.031); Immature Granulocyte Percent A 0.2 % (0-0.5); Lymphocytes Absolute Auto 1.02 K/mm3 (0.9-3.2); Lymphocytes Percent Auto 12.1 % (18.3-44.2); Mean Corpuscular HGB Conc 28.7 g/dl (32-36); Mean Corpuscular Hemoglobin 23.4 pg (26-34); Mean Corpuscular Volume 81.4 fl (80-100); Mean Platelet Volume 11.2 fl (7.4-10.4); Monocytes Absolute Auto 0.4 K/mm3 (0.1-0.6); Neutrophils Absolute Auto 6.8 K/mm3 (1.3-6.7); Neutrophils Percent Auto 80.7 % (45.5-73.1); Platelet Count Result 154 k/mm3 (150-375); Red Blood Count 4.19 M/mm3 (4.2-5.4); Red Cell Distribution Width 17.2 % (11.5-14.5); White Blood Count 8.4 K/mm3 (4.5-10.0)
[2023-10-17 06:12] LABS: Anion Gap 6 mmol/L (8-16); Blood Urea Nitrogen 35 mg/dL (7-17); Calcium 7.9 mg/dL (8.4-10.2); Carbon Dioxide 19 mmol/L (22-30); Chloride 114 mmol/L (98-107); Estimated CRCL calculation 37 ml/min; Estimated Glomerular Filt Rate 31; Glucose 75 mg/dL (65-110); Potassium 4.2 mmol/L (3.4-5.0); Sodium 139 mmol/L (137-145)
[2023-10-17] MEDS: UMECLIDINIUM/VILANTEROL 62.5-25 MCG ELLIPTA 1 PUFF INHALATION (07:57)
--- NOTE | 2023-10-17 09:00 | PM.PNCARD ---
Progress Note: A&P Assessment and Plan (1) Syncope: Code(s): R55 - Syncope and collapse Status: Acute Assessment and Plan: Her syncope is clearly related to coughing. This is tussive syncope and no further workup needed because of syncope. She has a recent ICD implantation also (2) Pulmonary embolism: Code(s): I26.99 - Other pulmonary embolism without acute cor pulmonale Status: Acute Assessment and Plan: Per pulmonology (3) Acute on chronic systolic (congestive) heart failure: Code(s): I50.23 - Acute on chronic systolic (congestive) heart failure Status: Acute Assessment and Plan: Continue diuresis but with her low blood pressure and worsening renal function, she likely needs some inotropes. Will start her on dobutamine 2.5 micrograms/kilogram per minute. This will obviously necessitate will her to IMU. Continue spironolactone, metoprolol, Entresto, Jardiance at current dosing. Intake and output daily weights to be followed. Daily BMP (4) Coronary artery disease: Qualifiers: Coronary Disease-Associated Artery/Lesion type: [place] artery [place] vs. transplanted heart: unspecified whether [place] or transplanted heart Code(s): I25.10 - Atherosclerotic heart disease of [place] coronary artery without angina pectoris Status: Chronic Assessment and Plan: Continue anti-platelet and statin therapy (5) Ischemic cardiomyopathy: Code(s): I25.5 - Ischemic cardiomyopathy Status: Acute Assessment and Plan: Continue standard heart CHF regimen and agree with diuresis. Recent ICD implantation in August 2023. Subjective Date/time seen: 10/17/23 09:00 Interval history: 58-year-old admitted for test of syncope, shortness breath, heart failure Date of service 10/17/2023: Still with significant edema. Still a bit short of breath. No chest pain. Blood pressure is low however. Review of Systems Review of Systems: All systems reviewed & are unremarkable except as noted in HPI and below Constitutional: Constitutional: Denies body ache(s) and Denies excessive sweating Eyes: Eyes: Denies blurry vision ENT: Reports Normal hearing present Cardiovascular: Cardiovascular: Denies chest pain, Reports pedal edema, Reports leg edema and Reports dyspnea Respiratory: Respiratory: Reports dyspnea Gastrointestinal: Gastrointestinal: Denies abdominal pain Genitourinary: Genitourinary: Denies hematuria Musculoskeletal: Musculoskeletal: Denies back pain Integumentary/Breasts: Skin/Breast: Denies dry skin Neurologic: Reports Normal hearing present and Denies Abnormal speech present Psychiatric: Psychiatric: Denies anxiety Endocrine: Endocrine: Denies excessive sweating Hematologic/Lymphatic: Hematologic/Lymphatic: Denies easy bleeding Allergic/Immunologic: Allergic/Immunologic: Denies GI upset with certain foods Exam Narrative: Awake alert and oriented appears older than stated age Const: General: comfortable and no acute distress HENMT: Face/Nose/Sinus: Normal nares present Mouth: Yes moist mucous membranes Eyes: General: appearance normal, both eyes and all related structures Sclera: sclerae normal Neck: Neck: supple and no JVD Carotids: no bruits Chest: Other: No reproducible chest wall pain to palpation Resp: Effort & Inspection: normal respiratory effort Auscultation: clear to auscultation bilaterally Cardio: Rate: regular rate GI: Inspection: non-distended Skin: General skin exam: normal color Neuro: Cranial nerves: Yes Normal hearing present Speech: normal speech and No Abnormal speech present Extrem: General: edema Other: Right BKA Psych: Mental Status: mental status grossly normal Affect: normal affect Objective Data Vital Signs Vital Signs: Vital Signs - 24 hr 10/16/23 09:43 10/16/23 09:45 10/16/23 09:40 Temperature Pulse Rate 96 89 Respiratory Rate
[2023-10-17 09:01] LABS: Glucose Point of Care 69 mg/dl (65-105)
[2023-10-17] MEDS: DULoxetine HCL 60 MG CAPSULE.DR PO (09:16)
[2023-10-17] MEDS: AMIODARONE HCL 200 MG TABLET 400 MG PO (09:16)
[2023-10-17] MEDS: SACUBITRIL/VALSARTAN 24-26 MG TABLET 1 TAB PO (09:17)
[2023-10-17] MEDS: PREGABALIN (*CRX) 50 MG CAPSULE 100 MG PO ×2 (09:17→20:42)
[2023-10-17] MEDS: METOPROLOL SUCCINATE EXT REL 12.5 MG TABCR PO (09:18)
[2023-10-17] MEDS: CLOPIDOGREL BISULFATE 75 MG TABLET PO (09:18)
[2023-10-17] MEDS: SPIRONOLACTONE 12.5 MG TABLET PO (09:19)
[2023-10-17] MEDS: ENOXAPARIN 100 MG/ML SYRINGE 90 MG SUB-Q (09:19)
[2023-10-17] MEDS: MIDODRINE HCL 2.5 MG TABLET 5 MG PO ×3 (09:22→13:20)
[2023-10-17 09:54] LABS: Glucose Point of Care 78 mg/dl (65-105)
--- NOTE | 2023-10-17 10:30 | PC.NURSE ---
This patient, Tiff Vaughn, was transferred to ICU 7 on 10/17/23 at 1030. Personal belongings sent with patient. Report given to Brissa NUNES. Appropriate documentation sent with patient.
[2023-10-17] MEDS: DOBUTamine 250 MG/D5W 250 ML 250 MG/250 ML BAG 13.34 MG IV CONT (10:39)
[2023-10-17 11:29] LABS: Glucose Point of Care 131 mg/dl (65-105)
[2023-10-17] MEDS: INSULIN GLARGINE (*BKC) 100 UNITS/ML 8 UNITS SUB-Q (11:32)
[2023-10-17] MEDS: ACETAMINOPHEN 325 MG TABLET 650 MG PO (11:38)
[2023-10-17] MEDS: SODIUM CHLORIDE 0.9% IV 500 ML IV CONT (12:35)
[2023-10-17] MEDS: NOREPINEPHRINE 8 MG/D5W 250 ML 8 MG/250 ML BAG 18.75 MG IV CONT (12:43)
[2023-10-17 12:50] LABS: Lactic Acid Reflex 0.9 mmol/L (0.7-2.0)
[2023-10-17 12:59] LABS: MRSA (PCR) NOT DETECTED (NOT DETECTE)
[2023-10-17] MEDS: metroNIDAZOLE 500 MG/ISO 100ML 500 MG/100 ML BAG 100 MG IVPB ×2 (13:01→20:42)
--- NOTE | 2023-10-17 13:07 | WPDCNINT ---
Assessment and Plan Assessment and plan (1) Septic shock: Code(s): A41.9 - Sepsis, unspecified organism; R65.21 - Severe sepsis with septic shock Status: Acute Assessment and Plan: 10/17/2023: I was asked to see the patient due to hypotension with systolics in the 70s and 80s. -septic shock likely related to bacteremia, pneumonia -will check UA, -lactic acid is normal -check procalcitonin -10/14: Blood cultures growing Gram-positive cocci in clusters 2/2 bottles, sensitivities pending -continue ceftriaxone and vancomycin (10/14) -given patient's cardiomyopathy with EF of 20%, will give 500 mL IV fluid bolus over 1 hour, re-evaluate and if required may repeat a small bolus very cautiously -patient started on Levophed, titrate to maintain MAP > 65 mmHg or SBP > 100 mmHg for adequate end organ perfusion -monitor urine output, renal function -will use albumin for intravascular volume expansion (2) Syncope: Qualifiers: Syncope type: vasovagal syncope Qualified Code(s): R55 - Syncope and collapse Code(s): R55 - Syncope and collapse Status: Acute Assessment and Plan: Patient had syncope after a coughing spell, cardiology following the patient and no further workup as syncope was thought to be secondary to the coughing spell -continue to monitor -patient does have an AICD (3) Pulmonary embolism: Qualifiers: Pulmonary embolism type: other Chronicity: acute Acute cor pulmonale presence: unspecified Qualified Code(s): I26.99 - Other pulmonary embolism without acute cor pulmonale Code(s): I26.99 - Other pulmonary embolism without acute cor pulmonale Status: Acute Assessment and Plan: 10/14: CTA chest 1. Subsegmental pulmonary emboli of the right lower lobe. 2. Moderate size left and small right pleural effusions with associated passive atelectasis. 3. Patchy airspace opacities of the mid and upper lung zones, consistent with pneumonia versus pulmonary edema. 4. 14 mm right perihilar upper lobe nodule concerning for primary bronchogenic carcinoma. Follow-up CT in three months is recommended. 5. Mediastinal and bilateral hilar lymphadenopathy, reactive versus metastatic disease. -continue therapeutic Lovenox -will obtain echocardiogram (4) CHF (congestive heart failure): Qualifiers: Heart failure type: systolic Heart failure chronicity: chronic Qualified Code(s): I50.22 - Chronic systolic (congestive) heart failure Code(s): I50.9 - Heart failure, unspecified Status: Acute Assessment and Plan: Patient has a history of systolic heart failure with EF of 20% with AICD implantation in August 2023 -cardiology following the patient -currently holding spironolactone, Entresto, metoprolol, furosemide due to hypotension and patient being on pressors (5) Chronic obstructive pulmonary disease: Qualifiers: COPD type: unspecified COPD Qualified Code(s): J44.9 - Chronic obstructive pulmonary disease, unspecified Code(s): J44.9 - Chronic obstructive pulmonary disease, unspecified Status: Chronic Assessment and Plan: Continue bronchodilator - Umeclidinium bromide / Vilanterol -currently on 3 L nasal cannula with adequate O2 sats (6) Diabetes mellitus: Code(s): E11.9 - Type 2 diabetes mellitus without complications Status: Chronic Assessment and Plan: Continue Accu-Cheks, sliding scale insulin and Lantus (7) Pneumonia: Code(s): J18.9 - Pneumonia, unspecified organism Status: Acute Assessment and Plan: Chest x-ray and CTA showed pneumonia -continue antibiotics as above (8) Moderate sized pleural effusion: Code(s): J90 - Pleural effusion, not elsewhere classified Status: Acute Assessment and Plan: CTA showed moderate size left pleural effusion as above -patient may require thoracentesis Plan DVT prophylaxis: Therapeutic Lovenox for PE Stress ulcer p
[2023-10-17 13:38] LABS: Procalcitonin 0.1 ng/mL
[2023-10-17 13:42] LABS: Appearance Urine Cloudy (Clear); Bacteria Urine None Seen /hpf; Bilirubin Urine Negative (Negative); Blood Urine Negative (Negative); Color Urine Dark Yellow (Yellow); Glucose Urine UA Negative (Negative); Ketones Urine Trace mg/dL (Negative); Leukocyte Esterase Ur 1+ LEU/UL (Negative); Need Manual Microscopic Reviewed; Nitrate Urine Negative (Negative); Non Pathogenic Casts >20; Protein Urine 1+ mg/dL (Negative); RBC Urine 0-2 /hpf (0-2); Squamous Epithelial Cell Urine Moderate /hpf (Few); Urobilinogen Urine 0.2 mg/dL (<2.0)
[2023-10-17 13:48] LABS: Add Urine Microscopic? YES; Specific Grav Ur 1.038 (1.001-1.035)
[2023-10-17] MEDS: ALBUMIN HUMAN 25% 25 GM/100 ML 100 ML IVPB ×3 (13:48→23:39)
[2023-10-17 14:43] LABS: Creatinine Urine 219.4 mg/dL
[2023-10-17 14:48] LABS: Potassium Urine Random 38.7 meq/L; Sodium Urine Random 56 meq/L
--- NOTE | 2023-10-17 14:53 | PM.IMPN ---
Progress Note: A&P Assessment and Plan (1) CHF exacerbation: Code(s): I50.9 - Heart failure, unspecified Status: Acute (2) Pulmonary embolism: Qualifiers: Acute cor pulmonale presence: unspecified Chronicity: acute Pulmonary embolism type: other Qualified Code(s): I26.99 - Other pulmonary embolism without acute cor pulmonale Code(s): I26.99 - Other pulmonary embolism without acute cor pulmonale Status: Acute (3) CHF (congestive heart failure): Code(s): I50.9 - Heart failure, unspecified Status: Acute (4) Pneumonia: Code(s): J18.9 - Pneumonia, unspecified organism Status: Acute (5) Edema of left lower extremity: Code(s): R60.0 - Localized edema Status: Acute (6) Pulmonary infiltrate on chest x-ray: Code(s): R91.8 - Other nonspecific abnormal finding of lung field Status: Acute (7) Moderate sized pleural effusion: Code(s): J90 - Pleural effusion, not elsewhere classified Status: Acute (8) Acute on chronic combined systolic (congestive) and diastolic (congestive) heart failure: Code(s): I50.43 - Acute on chronic combined systolic (congestive) and diastolic (congestive) heart failure Status: Acute (9) Shortness of breath: Code(s): R06.02 - Shortness of breath Status: Acute (10) Suspected sleep apnea: Code(s): R29.818 - Other symptoms and signs involving the nervous system Status: Chronic (11) Coronary artery disease: Qualifiers: Associated angina: without angina Coronary Disease-Associated Artery/Lesion type: [place] artery [place] vs. transplanted heart: [place] heart Qualified Code(s): I25.10 - Atherosclerotic heart disease of [place] coronary artery without angina pectoris Code(s): I25.10 - Atherosclerotic heart disease of [place] coronary artery without angina pectoris Status: Acute (12) Chronic obstructive pulmonary disease: Qualifiers: COPD type: unspecified COPD Qualified Code(s): J44.9 - Chronic obstructive pulmonary disease, unspecified Code(s): J44.9 - Chronic obstructive pulmonary disease, unspecified Status: Chronic (13) Hyperlipidemia: Code(s): E78.5 - Hyperlipidemia, unspecified Status: Chronic (14) Diabetes mellitus: Code(s): E11.9 - Type 2 diabetes mellitus without complications Status: Chronic (15) Anxiety: Code(s): F41.9 - Anxiety disorder, unspecified Status: Acute (16) Urinary incontinence: Code(s): R32 - Unspecified urinary incontinence Status: Acute (17) Below knee amputation: Code(s): S88.119A - Complete traumatic amputation at level between knee and ankle, unspecified lower leg, initial encounter Status: Acute (18) Vitamin D deficiency: Code(s): E55.9 - Vitamin D deficiency, unspecified Status: Chronic (19) Neuropathy: Code(s): G62.9 - Polyneuropathy, unspecified Status: Acute (20) Septic shock: Code(s): A41.9 - Sepsis, unspecified organism; R65.21 - Severe sepsis with septic shock Status: Acute (21) Ischemic cardiomyopathy: Code(s): I25.5 - Ischemic cardiomyopathy Status: Acute (22) Acute on chronic systolic (congestive) heart failure: Code(s): I50.23 - Acute on chronic systolic (congestive) heart failure Status: Acute (23) Syncope: Qualifiers: Syncope type: vasovagal syncope Qualified Code(s): R55 - Syncope and collapse Code(s): R55 - Syncope and collapse Status: Acute Plan Admit patient to medical unit under full inpatient status ... Transferred to ICU today for higher level of care Patient has ischemic cardiomyopathy and systolic heart failure with severely reduced EF around 10-20% status post AICD implantation in August 2023 Cardiac meds adjusted by residential aide which made her drop her blood pressure Patient transferred to ICU and initiall
[2023-10-17 15:09] LABS: Eosinophil Urine None Seen % (None Seen); Urine Eos QC 2nd Tech Confirmed
[2023-10-17 15:38] LABS: Creatine Kinase 222 U/L (30-135)
[2023-10-17 16:26] LABS: Glucose Point of Care 148 mg/dl (65-105)
[2023-10-17] MEDS: MIDODRINE HCL 10 MG TABLET PO (17:47)
[2023-10-17] MEDS: HYDROcodone/acetaminophen (*CRX) 5-325 MG TABLET 1 TAB PO (19:18)
[2023-10-17] MEDS: cefTRIAXone 2 GM/NS 100 ML 2 GM/100 ML BAG IVPB (20:42)
[2023-10-17 21:00] LABS: Glucose Point of Care 314 mg/dl (65-105)
[2023-10-17] MEDS: INSULIN ASPART (*BKC) 100 UNITS/ML SUB-Q (21:01)
[2023-10-18] VITALS (19 sets, daily range): BP systolic 98–120; BP diastolic 56–92; PULSE 65–84; RESP 10–25; TEMP 36.1–36.8; O2SAT 91–100
--- NOTE | 2023-10-18 | ECHO_ITS ---
Patient Info Name: Tiff Vaughn Age: 58 years : 1965 Gender: Female Ht: 68 in Wt: 195 lbs BSA: 2.08 m2 HR: 76 bpm BP: 117 / 88 mmHg Heart Rhythm: Sinus Rhythm Technical Quality: Fair Exam Date: 10/18/2023 7:35 AM Exam Location: Echo Lab Patient Status: Inpatient Admit Date: 10/16/2023 Staff Ordering Physician: Harleen Huang MD Data Warehousing Architect: Linda Corona RDCS Attending Provider: Andre Mitchell MD Referring Physician: Reina RUCKER; Exam Type: CA echo dop color flow w con Study Info Indications - Septic shock, bacteremia, CHF Complete two-dimensional, color flow and Doppler transthoracic echocardiogram is performed with contrast to opacify the left ventricle and to improve the deliniation of the left ventricle endocardial borders. Contrast/Agitated Saline Contrast/Ag. Saline: Definity Amount: 3.00 ml Administered By: Linda Corona RDCS Existing IV Access: Yes IV Access Condition: patent with no signs of infiltration Summary 1. Mild left ventricular enlargement with severe global systolic dysfunction. 2. Dilated left atrium. 3. Thickened mitral valve with no mitral regurgitation. 4. Sclerotic aortic valve without stenosis. 5. Pacemaker/ICD lead identified. Left Ventricle Left ventricular chamber dimension is moderately enlarged. Left ventricular systolic function is severely reduced, estimated at 20-25%. The left ventricular diastolic function is grade I diastolic dysfunction. Right Ventricle Right ventricular chamber dimension is normal. Linear artifact in right ventricle suggestive of catheter(s), pacemaker lead(s), or ICD lead(s). Left Atria Left atrial chamber dimension is moderately enlarged. Right Atria Right atrial chamber dimension is normal. Aortic Valve The aortic valve is trileaflet. There is mild aortic valve sclerosis. Pulmonic Valve The pulmonic valve is not well visualized. Mitral Valve The mitral valve has thickened leaflets. There is no mitral valve regurgitation. The mitral valve annulus is severely calcified. Tricuspid Valve The tricuspid valve leaflets are normal. There is mild tricuspid valve regurgitation. Pericardium/Pleural The pericardium appears normal. Aorta The aortic root size at the sinus of Valsalva is normal. Left Ventricular Outflow Tract Name Value Normal LVOT 2D LVOT Diameter 1.93 cm LVOT Doppler LVOT Peak Gradient 2 mmHg LVOT Mean Gradient 1 mmHg LVOT VTI 11.24 cm LVOT VTI/AV VTI Ratio 0.57 LVOT Stroke Volume 32.88 ml LVOT CO 2.51 l/min LVOT CI 1.21 L/min/m2 Mitral Valve Name Value Normal MV Doppler MV Peak Gradient 9 mmHg MV Mean Gradient 3 mmHg
[2023-10-18 02:07] LABS: Vancomycin Trough 12.9 ug/mL (10.0-20.0)
[2023-10-18] MEDS: VANCOMYCIN 1,250 MG/NS 250 ML 1,250 MG/250 ML BAG 166.67 MG IVPB (05:19)
[2023-10-18] MEDS: metroNIDAZOLE 500 MG/ISO 100ML 500 MG/100 ML BAG 100 MG IVPB ×3 (05:20→21:27)
[2023-10-18] MEDS: LEVOTHYROXINE SODIUM 50 MCG TABLET PO (05:21)
[2023-10-18] MEDS: ALBUMIN HUMAN 25% 25 GM/100 ML 100 ML IVPB ×3 (05:21→18:28)
[2023-10-18 05:22] LABS: Basophils Percent Auto 0.5 % (0.2-1.2); Eosinophils Absolute Auto 0.1 K/mm3 (0-0.3); Eosinophils Percent Auto 1.6 % (0-4.4); Hematocrit 34.3 % (37.0-47.0); Hemoglobin 9.5 g/dL (12.0-15.0); Immature Granulocyte Absolute 0.01 K/mm3 (0.00-0.031); Immature Granulocyte Percent A 0.2 % (0-0.5); Lymphocytes Percent Auto 10.8 % (18.3-44.2); Mean Corpuscular HGB Conc 27.7 g/dl (32-36); Mean Corpuscular Hemoglobin 23.1 pg (26-34); Mean Corpuscular Volume 83.3 fl (80-100); Mean Platelet Volume 11.3 fl (7.4-10.4); Monocytes Absolute Auto 0.4 K/mm3 (0.1-0.6); Monocytes Percent Auto 6.5 % (2.6-8.5); Neutrophils Absolute Auto 4.5 K/mm3 (1.3-6.7); Neutrophils Percent Auto 80.4 % (45.5-73.1); Platelet Count Result 151 k/mm3 (150-375); Red Blood Count 4.12 M/mm3 (4.2-5.4); Red Cell Distribution Width 17.3 % (11.5-14.5); White Blood Count 5.6 K/mm3 (4.5-10.0)
[2023-10-18] MEDS: CENTRAL LINE FLUSH 10 ML IV PUSH ×3 (05:22→21:30)
[2023-10-18 05:41] LABS: Alanine Aminotransferase 44 U/L (6-35); Albumin Level 4.1 g/dL (3.5-5.1); Alkaline Phosphatase 136 U/L (38-126); Anion Gap 13 mmol/L (8-16); Aspartate Amino Transferase 60 U/L (14-36); Bilirubin,Total 0.6 mg/dL (0.2-1.3); Blood Urea Nitrogen 40 mg/dL (7-17); CRP 1.9 mg/dL (<1.0); Carbon Dioxide 16 mmol/L (22-30); Chloride 111 mmol/L (98-107); Estimated CRCL calculation 33 ml/min; Estimated Glomerular Filt Rate 27; Glucose 199 mg/dL (65-110); Magnesium 2.1 mg/dL (1.6-2.3); Phosphorus 5.7 mg/dL (2.5-4.5); Potassium 4.4 mmol/L (3.4-5.0); Sodium 140 mmol/L (137-145)
[2023-10-18 05:45] LABS: Lactic Acid Reflex 0.9 mmol/L (0.7-2.0)
[2023-10-18 06:00] LABS: Anisocytosis 1+ (NORMAL); Crenated RBC 1+ (NORMAL); Platelet Estimate Adequate (Adequate); Polychromasia 1+ (NORMAL)
[2023-10-18 06:01] LABS: Schistocytes None Seen (NORMAL)
[2023-10-18 07:52] LABS: Glucose Point of Care 182 mg/dl (65-105)
--- NOTE | 2023-10-18 08:41 | WPDINTPN ---
Progress Note: A&P Assessment and Plan (1) Septic shock: Code(s): A41.9 - Sepsis, unspecified organism; R65.21 - Severe sepsis with septic shock Status: Acute Assessment and Plan: 10/17/2023: I was asked to see the patient due to hypotension with systolics in the 70s and 80s. -septic shock likely related to bacteremia, pneumonia -will check UA, -lactic acid is normal -check procalcitonin -10/14: Blood cultures growing Gram-positive cocci in clusters 2/2 bottles, sensitivities pending -continue ceftriaxone and vancomycin (10/14) -given patient's cardiomyopathy with EF of 20%, patient was given IV fluid bolus of 500 mL x1 on 10/17/2023 -patient briefly on Levophed which is currently turned off -patient refusing urine catheter, unable to obtain accurate input and output -continue albumin for intravascular volume expansion -10/17: Repeat blood cultures (2) Syncope: Qualifiers: Syncope type: vasovagal syncope Qualified Code(s): R55 - Syncope and collapse Code(s): R55 - Syncope and collapse Status: Acute Assessment and Plan: Patient had syncope after a coughing spell, cardiology following the patient and no further workup as syncope was thought to be secondary to the coughing spell -continue to monitor -patient does have an AICD (3) Pulmonary embolism: Qualifiers: Acute cor pulmonale presence: unspecified Chronicity: acute Pulmonary embolism type: other Qualified Code(s): I26.99 - Other pulmonary embolism without acute cor pulmonale Code(s): I26.99 - Other pulmonary embolism without acute cor pulmonale Status: Acute Assessment and Plan: 10/14: CTA chest 1. Subsegmental pulmonary emboli of the right lower lobe. 2. Moderate size left and small right pleural effusions with associated passive atelectasis. 3. Patchy airspace opacities of the mid and upper lung zones, consistent with pneumonia versus pulmonary edema. 4. 14 mm right perihilar upper lobe nodule concerning for primary bronchogenic carcinoma. Follow-up CT in three months is recommended. 5. Mediastinal and bilateral hilar lymphadenopathy, reactive versus metastatic disease. -continue therapeutic Lovenox -will obtain echocardiogram (4) CHF (congestive heart failure): Qualifiers: Heart failure chronicity: chronic Heart failure type: systolic Qualified Code(s): I50.22 - Chronic systolic (congestive) heart failure Code(s): I50.9 - Heart failure, unspecified Status: Acute Assessment and Plan: Patient has a history of systolic heart failure with EF of 20% with AICD implantation in August 2023 -cardiology following the patient -currently holding spironolactone, Entresto, metoprolol, furosemide due to hypotension and patient being on pressors (5) Chronic obstructive pulmonary disease: Qualifiers: COPD type: unspecified COPD Qualified Code(s): J44.9 - Chronic obstructive pulmonary disease, unspecified Code(s): J44.9 - Chronic obstructive pulmonary disease, unspecified Status: Chronic Assessment and Plan: Continue bronchodilator - Umeclidinium bromide / Vilanterol -currently on 3 L nasal cannula with adequate O2 sats (6) Diabetes mellitus: Code(s): E11.9 - Type 2 diabetes mellitus without complications Status: Chronic Assessment and Plan: Continue Accu-Cheks, sliding scale insulin and Lantus (7) Pneumonia: Code(s): J18.9 - Pneumonia, unspecified organism Status: Acute Assessment and Plan: Chest x-ray and CTA showed pneumonia -continue antibiotics as above (8) Moderate sized pleural effusion: Code(s): J90 - Pleural effusion, not elsewhere classified Status: Acute Assessment and Plan: CTA showed moderate size left pleural effusion as above -patient may require thoracentesis Plan DVT prophylaxis: Therapeutic Lovenox for PE Stress ulcer prophylaxis: Not indicated Nutrition:
[2023-10-18] MEDS: UMECLIDINIUM/VILANTEROL 62.5-25 MCG ELLIPTA 1 PUFF INHALATION (08:46)
[2023-10-18] MEDS: SODIUM BICARBONATE 8.4% 50 MEQ/50 ML SYRINGE 100 MEQ IV PUSH (08:58)
[2023-10-18] MEDS: ONDANSETRON INJ 4 MG/2 ML VIAL IV PUSH ×2 (09:27→22:37)
--- NOTE | 2023-10-18 09:39 | PM.IMPN ---
Progress Note: A&P Assessment and Plan (1) Septic shock: Code(s): A41.9 - Sepsis, unspecified organism; R65.21 - Severe sepsis with septic shock Status: Acute Assessment and Plan: Associated with septic shock on pressors Currently on IV Rocephin IV vancomycin Follow-up final culture result record filing clerk following (2) CHF exacerbation: Code(s): I50.9 - Heart failure, unspecified Status: Acute Assessment and Plan: Acute and of chronic systolic CHF exacerbation of cardiology following diuresis was held due to patient being on pressors (3) Pulmonary embolism: Qualifiers: Acute cor pulmonale presence: unspecified Chronicity: acute Pulmonary embolism type: other Qualified Code(s): I26.99 - Other pulmonary embolism without acute cor pulmonale Code(s): I26.99 - Other pulmonary embolism without acute cor pulmonale Status: Acute Assessment and Plan: Reviewed CT scan of the chest also patient has lung mass follow-up with pulmonology as outpatient concern for bronchogenic carcinoma Continue IV antibiotics (4) Pneumonia: Code(s): J18.9 - Pneumonia, unspecified organism Status: Acute Assessment and Plan: Continue IV antibiotics (5) Moderate sized pleural effusion: Code(s): J90 - Pleural effusion, not elsewhere classified Status: Acute Assessment and Plan: Currently on pressors (6) Suspected sleep apnea: Code(s): R29.818 - Other symptoms and signs involving the nervous system Status: Chronic Assessment and Plan: Resume home treatment (7) COPD exacerbation: Code(s): J44.1 - Chronic obstructive pulmonary disease with (acute) exacerbation Status: Acute Assessment and Plan: Continue nebulizer treatment (8) Type 2 diabetes mellitus with hyperglycemia, with long-term current use of insulin: Code(s): E11.65 - Type 2 diabetes mellitus with hyperglycemia; Z79.4 - MCFP (current) use of insulin Status: Chronic Assessment and Plan: Continue current treatment insulin sliding scale (9) Lung mass: Code(s): R91.8 - Other nonspecific abnormal finding of lung field Status: Acute Assessment and Plan: Follow-up with pulmonology as outpatient Subjective Date/time seen: 10/18/23 09:39 Interval history: Patient seen and examined Patient was found to have bacteremia associated with septic shock associated with acute and of chronic systolic CHF exacerbation required pressor IV antibiotics also has worsening renal failure required pressors Diuresis was held due to patient being on pressors patient also has found to have pulmonary embolism pleural effusion and atelectasis and pneumonia patient was treated with IV antibiotics therapeutic Lovenox Patient feels nauseous Patient denies fever headache chest pain I am seeing the patient for generalized weakness Exam Narrative: Alert Chest decreased air entry bilateral Abdomen nontender nondistended CVS S1 + S2 Lower extremity edema Objective Data Vital Signs Vital Signs: Vital Signs - 24 hr 10/17/23 10:39 10/17/23 12:43 10/17/23 12:00 Temperature Pulse Rate 67 78 89 Respiratory Rate 18 Blood Pressure 87/60 L 97/51 L 81/36 L Pulse Oximetry 98 Oxygen Delivery Oxygen Flow Rate Fraction of Inspired Oxygen 10/17/23 12:48 10/17/23 12:51 10/17/23 12:00 Temperature 98.0 F Pulse Rate 80 73 96 Respiratory Rate 18 Blood Pressure 78/67 L 105/66 Pulse Oximetry 100 Oxygen Delivery Oxygen Flow Rate Fraction of Inspired Oxygen 10/17/23 13:53 10/17/23 14:21 10/17/23 11:05 Temperature Pulse Rate 69 65 Respiratory Rate Blood Pressure 128/83 136/91 H Pulse Oximetry 95 Oxygen Delivery Nasal Cannula Oxygen Flow Rate 3 Fraction of Inspired Oxygen 10/17/23 14:00 10/17/23 14:00 10/17/23 15:10 Temperature Pulse Rate 68 68 Respiratory Rate 15 Bl
--- NOTE | 2023-10-18 10:01 | PM.CNNEP ---
Assessment and Plan Assessment and plan (1) EVAN (acute kidney injury): Code(s): N17.9 - Acute kidney failure, unspecified Status: Acute Assessment and Plan: suspect ATN with multifactorial etiology: hemodynamic instability/hypotension infection/sepsis (pneumonia + bacteremia) medications (diuretics, entresto, anti-hypertensives...etc) contrast exposure (CTA of chest on 10/14) known cardiomyopathy may have some underlying CKD given history of DM, cardiomyopathy, vascular disease, and JOSE evaluation to date: normal renal ultrasound urine eosinophils negative urine electrolytes prerenal (but this maybe more related to her cardiomyopathy/depressed EF) CPK mildly elevated (but not likely to affect kidney function) at risk for requiring TOW FEEDER/dialysis follow trend of repeat labs and UOP (2) Septic shock: Code(s): A41.9 - Sepsis, unspecified organism; R65.21 - Severe sepsis with septic shock Status: Acute Assessment and Plan: presumed secondary to bacteremia and pneumonia blood culture with GPC in clusters was on vasopressor therapy but weaned off albumin for volume expansion follow trend of hemodynamics (3) Pulmonary embolism: Qualifiers: Acute cor pulmonale presence: unspecified Chronicity: acute Pulmonary embolism type: other Qualified Code(s): I26.99 - Other pulmonary embolism without acute cor pulmonale Code(s): I26.99 - Other pulmonary embolism without acute cor pulmonale Status: Acute Assessment and Plan: as documented by CTA of chest: subsegmental pulmonary emboli of the right lower lobe further CT chest findings noted: moderate size left and small right pleural effusions with associated passive atelectasis patchy airspace opacities of the mid and upper lung zones, consistent with pneumonia versus pulmonary edema. 14 mm right perihilar upper lobe nodule concerning for primary bronchogenic carcinoma. Follow-up CT in three months is recommended. mediastinal and bilateral hilar lymphadenopathy, reactive versus metastatic disease. on anticoagulation follow respiratory status (4) Pneumonia: Code(s): J18.9 - Pneumonia, unspecified organism Status: Acute Assessment and Plan: admission CXR and CT chest demonstrated this follow repeat cultures continue antibiotics as outlined (5) CHF (congestive heart failure): Qualifiers: Heart failure chronicity: chronic Heart failure type: systolic Qualified Code(s): I50.22 - Chronic systolic (congestive) heart failure Code(s): I50.9 - Heart failure, unspecified Status: Acute Assessment and Plan: known history of systolic heart failure with EF of 20% s/p AICD implantation in August 2023 Cardiology following the patient spironolactone, Entresto, metoprolol, furosemide on hold due to hypotension (6) Chronic obstructive pulmonary disease: Qualifiers: COPD type: unspecified COPD Qualified Code(s): J44.9 - Chronic obstructive pulmonary disease, unspecified Code(s): J44.9 - Chronic obstructive pulmonary disease, unspecified Status: Chronic Assessment and Plan: continue bronchodilator therapy supplemental oxygen complicated by PE, pneumonia, and volume overload on supplemental oxygen (7) Moderate sized pleural effusion: Code(s): J90 - Pleural effusion, not elsewhere classified Status: Acute Assessment and Plan: noted by admission imaging consider thoracentesis if unable to diuresis (8) Diabetes mellitus: Code(s): E11.9 - Type 2 diabetes mellitus without complications Status: Chronic Assessment and Plan: monitor accu-cheks glycemic control per roller inspector and mender and hospitalist Discussed case with Dr. Huang. I will continue follow the patient with you while she remains hospitalized and make further recommendations as deemed necessary.
--- NOTE | 2023-10-18 10:01 | P.CONNP_ITS ---
Assessment and Plan Assessment and plan (1) EVAN (acute kidney injury): Code(s): N17.9 - Acute kidney failure, unspecified Status: Acute Assessment and Plan: * suspect ATN with multifactorial etiology: * hemodynamic instability/hypotension * infection/sepsis (pneumonia + bacteremia) * medications (diuretics, entresto, anti-hypertensives...etc) * contrast exposure (CTA of chest on 10/14) * known cardiomyopathy * may have some underlying CKD given history of DM, cardiomyopathy, vascular disease, and JOSE * evaluation to date: * normal renal ultrasound * urine eosinophils negative * urine electrolytes prerenal (but this maybe more related to her cardiomyopathy/depressed EF) * CPK mildly elevated (but not likely to affect kidney function) * at risk for requiring FIRE PROTECTION SPECIALIST/dialysis * follow trend of repeat labs and UOP (2) Septic shock: Code(s): A41.9 - Sepsis, unspecified organism; R65.21 - Severe sepsis with septic shock Status: Acute Assessment and Plan: * presumed secondary to bacteremia and pneumonia * blood culture with GPC in clusters * was on vasopressor therapy but weaned off * albumin for volume expansion * follow trend of hemodynamics (3) Pulmonary embolism: Qualifiers: Acute cor pulmonale presence: unspecified Chronicity: acute Pulmonary embolism type: other Qualified Code(s): I26.99 - Other pulmonary embolism without acute cor pulmonale Code(s): I26.99 - Other pulmonary embolism without acute cor pulmonale Status: Acute Assessment and Plan: * as documented by CTA of chest: * subsegmental pulmonary emboli of the right lower lobe * further CT chest findings noted: * moderate size left and small right pleural effusions with associated passive atelectasis * patchy airspace opacities of the mid and upper lung zones, consistent with pneumonia versus pulmonary edema. * 14 mm right perihilar upper lobe nodule concerning for primary bronchogenic carcinoma. Follow-up CT in three months is recommended. * mediastinal and bilateral hilar lymphadenopathy, reactive versus metastatic disease. * on anticoagulation * follow respiratory status (4) Pneumonia: Code(s): J18.9 - Pneumonia, unspecified organism Status: Acute Assessment and Plan: * admission CXR and CT chest demonstrated this * follow repeat cultures * continue antibiotics as outlined (5) CHF (congestive heart failure): Qualifiers: Heart failure chronicity: chronic Heart failure type: systolic Qualified Code(s): I50.22 - Chronic systolic (congestive) heart failure Code(s): I50.9 - Heart failure, unspecified Status: Acute Assessment and Plan: * known history of systolic heart failure with EF of 20% * s/p AICD implantation in August 2023 * Cardiology following the patient * spironolactone, Entresto, metoprolol, furosemide on hold due to hypotension (6) Chronic obstructive pulmonary disease: Qualifiers: COPD type: unspecified COPD Qualified Code(s): J44.9 - Chronic obstruct jessica pulmonary disease, unspecified Code(s): J44.9 - Chronic obstructive pulmonary disease, unspecified Status: Chronic Assessment and Plan: * continue bronchodilator therapy * supplemental oxygen * complicated by PE, pneumonia, and volume overload * on supplemental oxygen (7) Moderate sized pleural effusion: Code(s): J90 - Pleural effusion, not elsewhere classified Status: Acute Assessment and
--- NOTE | 2023-10-18 10:32 | PM.PNCARD ---
Progress Note: A&P Assessment and Plan (1) Syncope: Qualifiers: Syncope type: vasovagal syncope Qualified Code(s): R55 - Syncope and collapse Code(s): R55 - Syncope and collapse Status: Acute Assessment and Plan: Her syncope is clearly related to coughing. This is tussive syncope and no further workup needed because of syncope. She has a recent ICD implantation also (2) Pulmonary embolism: Qualifiers: Acute cor pulmonale presence: unspecified Chronicity: acute Pulmonary embolism type: other Qualified Code(s): I26.99 - Other pulmonary embolism without acute cor pulmonale Code(s): I26.99 - Other pulmonary embolism without acute cor pulmonale Status: Acute Assessment and Plan: Per pulmonology (3) Acute on chronic systolic (congestive) heart failure: Code(s): I50.23 - Acute on chronic systolic (congestive) heart failure Status: Acute Assessment and Plan: She has stabilized. She had septic shock. Weaning Levophed as able. Antibiotics per ICU. Restart spironolactone, metoprolol, Entresto, Jardiance when able. Intake and output daily weights to be followed. Daily BMP (4) Coronary artery disease: Qualifiers: Coronary Disease-Associated Artery/Lesion type: [place] artery [place] vs. transplanted heart: unspecified whether [place] or transplanted heart Code(s): I25.10 - Atherosclerotic heart disease of [place] coronary artery without angina pectoris Status: Chronic Assessment and Plan: Continue anti-platelet and statin therapy (5) Ischemic cardiomyopathy: Code(s): I25.5 - Ischemic cardiomyopathy Status: Acute Assessment and Plan: Continue standard heart CHF regimen and agree with diuresis. Recent ICD implantation in August 2023. Subjective Date/time seen: 10/18/23 10:32 Interval history: 58-year-old admitted for test of syncope, shortness breath, heart failure Date of service 10/17/2023: Still with significant edema. Still a bit short of breath. No chest pain. Blood pressure is low however. Date of service 10/18/2023: Seen in the ICU. Transferred yesterday due to hypotension and sepsis. Blood cultures were positive. She is somnolent but denies any chest pain. Review of Systems Review of Systems: All systems reviewed & are unremarkable except as noted in HPI and below Constitutional: Constitutional: Denies body ache(s) and Denies excessive sweating Eyes: Eyes: Denies blurry vision ENT: Reports Normal hearing present Cardiovascular: Cardiovascular: Denies chest pain, Reports pedal edema, Reports leg edema and Reports dyspnea Respiratory: Respiratory: Reports dyspnea Gastrointestinal: Gastrointestinal: Denies abdominal pain Genitourinary: Genitourinary: Denies hematuria Musculoskeletal: Musculoskeletal: Denies back pain Integumentary/Breasts: Skin/Breast: Denies dry skin Neurologic: Reports Normal hearing present and Denies Abnormal speech present Psychiatric: Psychiatric: Denies anxiety Endocrine: Endocrine: Denies excessive sweating Hematologic/Lymphatic: Hematologic/Lymphatic: Denies easy bleeding Allergic/Immunologic: Allergic/Immunologic: Denies GI upset with certain foods Exam Narrative: Awake alert and oriented appears older than stated age Const: General: comfortable and no acute distress HENMT: Face/Nose/Sinus: Normal nares present Mouth: Yes moist mucous membranes Eyes: General: appearance normal, both eyes and all related structures Sclera: sclerae normal Neck: Neck: supple and no JVD Carotids: no bruits Chest: Other: No reproducible chest wall pain to palpation Resp: Effort & Inspection: normal respiratory effort Auscultation: clear to auscultation bilaterally Cardio: Rate: regular rate GI: Inspection: non-distended Skin: General skin exam: normal color Neuro: Cranial nerves: Yes Normal hearing present Speech: nor
[2023-10-18] MEDS: PERFLUTREN LIPID MICROSPHERES 1.5 ML VIAL DILUTED TO 10 ML TOTAL VOLUME IV PUSH (11:03)
--- NOTE | 2023-10-18 11:04 | IVDEFINITY ---
Prior to administration of IV Definity the patient was educated on the risks and benefits of the imaging enhancing agent including potential adverse side effects. The patient verbalized understanding. Allergies were verified. No exclusion criteria were identified and at least one of the following inclusion criteria were met: 1) physician request, 2) patient technically difficult to image (per the [place] [employer]ocardi[employer] guidelines of two or more segments not discernable within the apical view), or 3) questionable left ventricular function. ?
--- NOTE | 2023-10-18 11:57 | PC.NURSE ---
This patient, Tiff Vaughn, was transferred to [facility] on 10/18/23 at 1157. Personal belongings sent with patient. Report given to DES oMta. Appropriate documentation sent with patient.
[2023-10-18 12:14] LABS: Glucose Point of Care 179 mg/dl (65-105)
--- NOTE | 2023-10-18 12:14 | PC.NURSE ---
This patient, Tiff Vaughn, was received from [ICU 7 ] on 10/18/23 at 1153. Patient/family oriented to unit policies and routines
[2023-10-18] MEDS: INSULIN GLARGINE (*BKC) 100 UNITS/ML 8 UNITS SUB-Q (12:30)
[2023-10-18] MEDS: INSULIN ASPART (*BKC) 100 UNITS/ML 10 UNITS SUB-Q ×2 (12:30→17:05)
[2023-10-18] MEDS: MIDODRINE HCL 10 MG TABLET PO ×2 (13:02→16:11)
--- NOTE | 2023-10-18 13:46 | PCRCNOTE ---
Home O2 eval complete. Patient does not require Home O2 at this time. RN notified.
[2023-10-18] MEDS: HYDROcodone/acetaminophen (*CRX) 5-325 MG TABLET 1 TAB PO (15:45)
[2023-10-18 17:04] LABS: Glucose Point of Care 159 mg/dl (65-105)
[2023-10-18] MEDS: PREGABALIN (*CRX) 50 MG CAPSULE 100 MG PO (21:21)
[2023-10-18] MEDS: SACUBITRIL/VALSARTAN 24-26 MG TABLET 1 TAB PO (21:21)
[2023-10-18] MEDS: FUROSEMIDE INJ 40 MG/4 ML VIAL IV PUSH (21:23)
[2023-10-18] MEDS: cefTRIAXone 2 GM/NS 100 ML 2 GM/100 ML BAG IVPB (21:23)
[2023-10-18 21:46] LABS: Glucose Point of Care 99 mg/dl (65-105)
[2023-10-18] MEDS: AZITHROMYCIN 500 MG/NS 250 ML 500 MG/250 ML BAG 250 MG IVPB (22:20)
--- NOTE | 2023-10-18 23:39 | PC.NURSE ---
Pt had an unmeasured amount of emesis at 2240. Zofran given, will continue to monitor patient.
[2023-10-19] VITALS (10 sets, daily range): BP systolic 89–113; BP diastolic 41–98; PULSE 65–76; RESP 18; TEMP 36–36.4; O2SAT 97–100
[2023-10-19 04:55] LABS: Basophils Percent Auto 0.4 % (0.2-1.2); Eosinophils Absolute Auto 0.1 K/mm3 (0-0.3); Eosinophils Percent Auto 0.7 % (0-4.4); Hematocrit 36.3 % (37.0-47.0); Immature Granulocyte Absolute 0.04 K/mm3 (0.00-0.031); Immature Granulocyte Percent A 0.5 % (0-0.5); Lymphocytes Absolute Auto 0.68 K/mm3 (0.9-3.2); Lymphocytes Percent Auto 8.9 % (18.3-44.2); Mean Corpuscular HGB Conc 27.5 g/dl (32-36); Mean Corpuscular Hemoglobin 22.8 pg (26-34); Mean Corpuscular Volume 82.7 fl (80-100); Mean Platelet Volume 11.6 fl (7.4-10.4); Monocytes Absolute Auto 0.5 K/mm3 (0.1-0.6); Monocytes Percent Auto 6.6 % (2.6-8.5); Neutrophils Absolute Auto 6.4 K/mm3 (1.3-6.7); Neutrophils Percent Auto 82.9 % (45.5-73.1); Nucleated Red Blood Cells Perc 0.3 % (0.0-0.2); Platelet Count Result 159 k/mm3 (150-375); Red Blood Count 4.39 M/mm3 (4.2-5.4); Red Cell Distribution Width 17.4 % (11.5-14.5); White Blood Count 7.7 K/mm3 (4.5-10.0)
[2023-10-19 05:17] LABS: Lactic Acid Reflex 0.8 mmol/L (0.7-2.0)
[2023-10-19] MEDS: CENTRAL LINE FLUSH 10 ML IV PUSH ×3 (05:21→22:00)
[2023-10-19] MEDS: metroNIDAZOLE 500 MG/ISO 100ML 500 MG/100 ML BAG 100 MG IVPB ×2 (05:21→13:23)
[2023-10-19] MEDS: LEVOTHYROXINE SODIUM 50 MCG TABLET PO (05:21)
[2023-10-19 05:52] LABS: Vancomycin Trough 18.5 ug/mL (10.0-20.0)
[2023-10-19 06:09] LABS: Alanine Aminotransferase 82 U/L (6-35); Albumin Level 4.3 g/dL (3.5-5.1); Alkaline Phosphatase 131 U/L (38-126); Anion Gap 12 mmol/L (8-16); Aspartate Amino Transferase 139 U/L (14-36); Bilirubin,Total 0.5 mg/dL (0.2-1.3); Blood Urea Nitrogen 48 mg/dL (7-17); Calcium 7.9 mg/dL (8.4-10.2); Carbon Dioxide 19 mmol/L (22-30); Chloride 112 mmol/L (98-107); Estimated CRCL calculation 28 ml/min; Estimated Glomerular Filt Rate 22; Glucose 76 mg/dL (65-110); Magnesium 2.1 mg/dL (1.6-2.3); Phosphorus 5.8 mg/dL (2.5-4.5); Potassium 4.6 mmol/L (3.4-5.0); Sodium 143 mmol/L (137-145)
[2023-10-19 08:16] LABS: Glucose Point of Care 60 mg/dl (65-105)
[2023-10-19 08:17] LABS: Glucose Point of Care 61 mg/dl (65-105)
[2023-10-19] MEDS: UMECLIDINIUM/VILANTEROL 62.5-25 MCG ELLIPTA 1 PUFF INHALATION (08:24)
[2023-10-19] MEDS: VANCOMYCIN 1,250 MG/NS 250 ML 1,250 MG/250 ML BAG 166.67 MG IVPB (08:35)
[2023-10-19] MEDS: AMIODARONE HCL 200 MG TABLET 400 MG PO (08:41)
[2023-10-19] MEDS: PREGABALIN (*CRX) 50 MG CAPSULE 100 MG PO ×2 (08:41→21:56)
[2023-10-19] MEDS: SPIRONOLACTONE 12.5 MG TABLET PO (08:41)
[2023-10-19] MEDS: CLOPIDOGREL BISULFATE 75 MG TABLET PO (08:41)
[2023-10-19] MEDS: DULoxetine HCL 60 MG CAPSULE.DR PO (08:41)
[2023-10-19] MEDS: FUROSEMIDE INJ 40 MG/4 ML VIAL IV PUSH (08:42)
[2023-10-19] MEDS: EMPAGLIFLOZIN 25 MG TABLET PO (08:42)
[2023-10-19] MEDS: MIDODRINE HCL 10 MG TABLET PO ×3 (08:42→16:34)
[2023-10-19] MEDS: SACUBITRIL/VALSARTAN 24-26 MG TABLET 1 TAB PO (08:42)
[2023-10-19] MEDS: ENOXAPARIN 100 MG/ML SYRINGE 90 MG SUB-Q ×2 (08:46→21:57)
--- NOTE | 2023-10-19 08:50 | PM.PNCARD ---
Progress Note: A&P Assessment and Plan (1) Syncope: Qualifiers: Syncope type: vasovagal syncope Qualified Code(s): R55 - Syncope and collapse Code(s): R55 - Syncope and collapse Status: Acute Assessment and Plan: Her syncope is clearly related to coughing. This is tussive syncope and no further workup needed because of syncope. She has a recent ICD implantation also (2) Pulmonary embolism: Qualifiers: Acute cor pulmonale presence: unspecified Chronicity: acute Pulmonary embolism type: other Qualified Code(s): I26.99 - Other pulmonary embolism without acute cor pulmonale Code(s): I26.99 - Other pulmonary embolism without acute cor pulmonale Status: Acute Assessment and Plan: Per pulmonology (3) Acute on chronic systolic (congestive) heart failure: Code(s): I50.23 - Acute on chronic systolic (congestive) heart failure Status: Acute Assessment and Plan: She has stabilized. She had septic shock. Off levophed. Antibiotics per hospitalist. --BUN/SCr 48/2.3 (40, 1.9). Hold furosemide for today. Hopefully can resume tomorrow - she is still volume overloaded. --Resume spironolactone, metoprolol, Entresto, Jardiance when able - not appropriate today BP 101/41 this a.m. and SBP 90's overnight --Intake and output --daily weights to be followed --Daily BMP (4) Coronary artery disease: Qualifiers: Coronary Disease-Associated Artery/Lesion type: [place] artery [place] vs. transplanted heart: unspecified whether redd[place] or transplanted heart Code(s): I25.10 - Atherosclerotic heart disease of [place] coronary artery without angina pectoris Status: Chronic Assessment and Plan: Continue anti-platelet and statin therapy (5) Ischemic cardiomyopathy: Code(s): I25.5 - Ischemic cardiomyopathy Status: Acute Assessment and Plan: Continue standard heart CHF regimen and agree with diuresis. Recent ICD implantation in August 2023. Subjective Date/time seen: 10/19/23 08:50 Interval history: 58-year-old admitted for test of syncope, shortness breath, heart failure Date of service 10/17/2023: Still with significant edema. Still a bit short of breath. No chest pain. Blood pressure is low however. Date of service 10/18/2023: Seen in the ICU. Transferred yesterday due to hypotension and sepsis. Blood cultures were positive. She is somnolent but denies any chest pain. Date of service 10/19/2023: She feels woozy this morning. Complaining of nausea. Breathing is better. No chest pain Review of Systems Review of Systems: All systems reviewed & are unremarkable except as noted in HPI and below Constitutional: Constitutional: Denies body ache(s) and Denies excessive sweating Eyes: Eyes: Denies blurry vision ENT: Reports Normal hearing present Cardiovascular: Cardiovascular: Denies chest pain, Reports pedal edema, Reports leg edema and Reports dyspnea Respiratory: Respiratory: Reports dyspnea Gastrointestinal: Gastrointestinal: Denies abdominal pain Genitourinary: Genitourinary: Denies hematuria Musculoskeletal: Musculoskeletal: Denies back pain Integumentary/Breasts: Skin/Breast: Denies dry skin Neurologic: Reports Normal hearing present and Denies Abnormal speech present Psychiatric: Psychiatric: Denies anxiety Endocrine: Endocrine: Denies excessive sweating Hematologic/Lymphatic: Hematologic/Lymphatic: Denies easy bleeding Allergic/Immunologic: Allergic/Immunologic: Denies GI upset with certain foods Exam Const: General: comfortable and no acute distress HENMT: Face/Nose/Sinus: Normal nares present Mouth: Yes moist mucous membranes Eyes: General: appearance normal, both eyes and all related structures Sclera: sclerae normal Neck: Neck: supple and no JVD Carotids: no bruits Chest: Other: No reproducible chest wall pain to palpation Resp: Effort & Inspecti
[2023-10-19 09:00] LABS: Glucose Point of Care 74 mg/dl (65-105)
--- NOTE | 2023-10-19 09:17 | PM.IMPN ---
Progress Note: A&P Assessment and Plan (1) Syncope: Qualifiers: Syncope type: vasovagal syncope Qualified Code(s): R55 - Syncope and collapse Code(s): R55 - Syncope and collapse Status: Acute Assessment and Plan: Had recent ICD implantation cardiology following (2) Pulmonary embolism: Qualifiers: Acute cor pulmonale presence: unspecified Chronicity: acute Pulmonary embolism type: other Qualified Code(s): I26.99 - Other pulmonary embolism without acute cor pulmonale Code(s): I26.99 - Other pulmonary embolism without acute cor pulmonale Status: Acute Assessment and Plan: Full anticoagulation (3) Acute on chronic systolic (congestive) heart failure: Code(s): I50.23 - Acute on chronic systolic (congestive) heart failure Status: Acute Assessment and Plan: Nodule recommendation appreciated --Resume spironolactone, metoprolol, Entresto, Jardiance overnight Daily intake and output (4) Coronary artery disease: Qualifiers: Coronary Disease-Associated Artery/Lesion type: [place] artery [place] vs. transplanted heart: unspecified whether [place] or transplanted heart Code(s): I25.10 - Atherosclerotic heart disease of [place] coronary artery without angina pectoris Status: Chronic Assessment and Plan: Continue antiplatelet therapy continue statin (5) Ischemic cardiomyopathy: Code(s): I25.5 - Ischemic cardiomyopathy Status: Acute Assessment and Plan: Continue with diuresis has recent ICD placed. (6) Septic shock: Code(s): A41.9 - Sepsis, unspecified organism; R65.21 - Severe sepsis with septic shock Status: Acute Assessment and Plan: Continue IV antibiotics probably related to pneumonia repeat blood culture negative Follow-up final culture result emerging solutions executive following Positive blood culture probably contaminant (7) CHF exacerbation: Code(s): I50.9 - Heart failure, unspecified Status: Acute Assessment and Plan: Acute and of chronic systolic CHF exacerbation of cardiology following diuresis was held due to patient being on pressors (8) Pneumonia: Code(s): J18.9 - Pneumonia, unspecified organism Status: Acute Assessment and Plan: Continue IV antibiotics (9) Moderate sized pleural effusion: Code(s): J90 - Pleural effusion, not elsewhere classified Status: Acute Assessment and Plan: Improved (10) Suspected sleep apnea: Code(s): R29.818 - Other symptoms and signs involving the nervous system Status: Chronic Assessment and Plan: Resume home treatment (11) COPD exacerbation: Code(s): J44.1 - Chronic obstructive pulmonary disease with (acute) exacerbation Status: Acute Assessment and Plan: Continue nebulizer treatment (12) Type 2 diabetes mellitus with hyperglycemia, with long-term current use of insulin: Code(s): E11.65 - Type 2 diabetes mellitus with hyperglycemia; Z79.4 - MCC (current) use of insulin Status: Chronic Assessment and Plan: Continue current treatment insulin sliding scale (13) Lung mass: Code(s): R91.8 - Other nonspecific abnormal finding of lung field Status: Acute Assessment and Plan: Concern for lung mass follow-up with pulmonology as outpatient Plan Anticipate discharge in 2 with the Subjective Date/time seen: 10/19/23 09:17 Interval history: Patient seen and examined Patient was found to have bacteremia associated with septic shock associated with acute and of chronic systolic CHF exacerbation required pressor IV antibiotics also has worsening renal failure required pressors Diuresis was held due to patient being on pressors patient also has found to have pulmonary embolism pleural effusion and atelectasis and pneumonia patient was treated with IV antibiotics therapeutic Lovenox Patient feels better today cardio
--- NOTE | 2023-10-19 10:41 | P.PNNP_ITS ---
Progress Note: A&P Assessment and Plan (1) EVAN (acute kidney injury): Code(s): N17.9 - Acute kidney failure, unspecified Status: Acute Assessment and Plan: * suspect ATN with multifactorial etiology: * hemodynamic instability/hypotension * infection/sepsis (pneumonia + bacteremia) * medications (diuretics, entresto, anti-hypertensives...etc) * contrast exposure (CTA of chest on 10/14) * known cardiomyopathy * may have some underlying CKD given history of DM, cardiomyopathy, vascular disease, and JOSE * evaluation to date: * normal renal ultrasound * urine eosinophils negative * urine electrolytes prerenal (but this maybe more related to her cardiomyopathy/depressed EF) * CPK mildly elevated (but not likely to affect kidney function) * follow trend of repeat labs and UOP (2) Septic shock: Code(s): A41.9 - Sepsis, unspecified organism; R65.21 - Severe sepsis with septic shock Status: Acute Assessment and Plan: * resolving * presumed secondary to bacteremia and pneumonia * blood culture with Staph epidermis * was on vasopressor therapy but weaned off * albumin for volume expansion * follow trend of hemodynamics (3) Pulmonary embolism: Qualifiers: Acute cor pulmonale presence: unspecified Chronicity: acute Pulmonary embolism type: other Qualified Code(s): I26.99 - Other pulmonary embolism without acute cor pulmonale Code(s): I26.99 - Other pulmonary embolism without acute cor pulmonale Status: Acute Assessment and Plan: * as documented by CTA of chest: * subsegmental pulmonary emboli of the right lower lobe * further CT chest findings noted: * moderate size left and small right pleural effusions with associated passive atelectasis * patchy airspace opacities of the mid and upper lung zones, consistent with pneumonia versus pulmonary edema. * 14 mm right perihilar upper lobe nodule concerning for primary bronchogenic carcinoma. Follow-up CT in three months is recommended. * mediastinal and bilateral hilar lymphadenopathy, reactive versus metastatic disease. * on anticoagulation * follow respiratory status (4) Pneumonia: Code(s): J18.9 - Pneumonia, unspecified organism Status: Acute Assessment and Plan: * admission CXR and CT chest demonstrated this * follow repeat cultures * continue antibiotics as outlined (5) CHF (congestive heart failure): Qualifiers: Heart failure chronicity: chronic Heart failure type: systolic Qualified Code(s): I50.22 - Chronic systolic (congestive) heart failure Code(s): I50.9 - Heart failure, unspecified Status: Acute Assessment and Plan: * known history of systolic heart failure with EF of 20% * s/p AICD implantation in August 2023 * Cardiology following the patient * spironolactone, Entresto, metoprolol, furosemide on hold due to hypotension * to be resumed when able (6) Chronic obstructive pulmonary disease: Qualifiers: COPD type: unspecified COPD Qualified Code(s): J44.9 - Chronic obstruct jessica pulmonary disease, unspecified Code(s): J44.9 - Chronic obstructive pulmonary disease, unspecified Status: Chronic Assessment and Plan: * continue bronchodilator therapy * supplemental oxygen * complicated by PE, pneumonia, and volume overload * on supplemental oxygen (7) Moderate sized pleural effusion: Code(s): J90 - Pleural effusion, not elsewhere classified Status: Acute Assessm
--- NOTE | 2023-10-19 10:41 | PM.PNNEP ---
Progress Note: A&P Assessment and Plan (1) EVAN (acute kidney injury): Code(s): N17.9 - Acute kidney failure, unspecified Status: Acute Assessment and Plan: suspect ATN with multifactorial etiology: hemodynamic instability/hypotension infection/sepsis (pneumonia + bacteremia) medications (diuretics, entresto, anti-hypertensives...etc) contrast exposure (CTA of chest on 10/14) known cardiomyopathy may have some underlying CKD given history of DM, cardiomyopathy, vascular disease, and JOSE evaluation to date: normal renal ultrasound urine eosinophils negative urine electrolytes prerenal (but this maybe more related to her cardiomyopathy/depressed EF) CPK mildly elevated (but not likely to affect kidney function) follow trend of repeat labs and UOP (2) Septic shock: Code(s): A41.9 - Sepsis, unspecified organism; R65.21 - Severe sepsis with septic shock Status: Acute Assessment and Plan: resolving presumed secondary to bacteremia and pneumonia blood culture with Staph epidermis was on vasopressor therapy but weaned off albumin for volume expansion follow trend of hemodynamics (3) Pulmonary embolism: Qualifiers: Acute cor pulmonale presence: unspecified Chronicity: acute Pulmonary embolism type: other Qualified Code(s): I26.99 - Other pulmonary embolism without acute cor pulmonale Code(s): I26.99 - Other pulmonary embolism without acute cor pulmonale Status: Acute Assessment and Plan: as documented by CTA of chest: subsegmental pulmonary emboli of the right lower lobe further CT chest findings noted: moderate size left and small right pleural effusions with associated passive atelectasis patchy airspace opacities of the mid and upper lung zones, consistent with pneumonia versus pulmonary edema. 14 mm right perihilar upper lobe nodule concerning for primary bronchogenic carcinoma. Follow-up CT in three months is recommended. mediastinal and bilateral hilar lymphadenopathy, reactive versus metastatic disease. on anticoagulation follow respiratory status (4) Pneumonia: Code(s): J18.9 - Pneumonia, unspecified organism Status: Acute Assessment and Plan: admission CXR and CT chest demonstrated this follow repeat cultures continue antibiotics as outlined (5) CHF (congestive heart failure): Qualifiers: Heart failure chronicity: chronic Heart failure type: systolic Qualified Code(s): I50.22 - Chronic systolic (congestive) heart failure Code(s): I50.9 - Heart failure, unspecified Status: Acute Assessment and Plan: known history of systolic heart failure with EF of 20% s/p AICD implantation in August 2023 Cardiology following the patient spironolactone, Entresto, metoprolol, furosemide on hold due to hypotension to be resumed when able (6) Chronic obstructive pulmonary disease: Qualifiers: COPD type: unspecified COPD Qualified Code(s): J44.9 - Chronic obstructive pulmonary disease, unspecified Code(s): J44.9 - Chronic obstructive pulmonary disease, unspecified Status: Chronic Assessment and Plan: continue bronchodilator therapy supplemental oxygen complicated by PE, pneumonia, and volume overload on supplemental oxygen (7) Moderate sized pleural effusion: Code(s): J90 - Pleural effusion, not elsewhere classified Status: Acute Assessment and Plan: noted by admission imaging consider thoracentesis if unable to diuresis (8) Diabetes mellitus: Code(s): E11.9 - Type 2 diabetes mellitus without complications Status: Chronic Assessment and Plan: monitor accu-cheks glycemic control per manager traffic and hospitalist Will continue to follow. Subjective Date/time seen: 10/19/23 10:41 Interval history: Follow-up for acute kidney injury/acute renal failure. Transferred out
[2023-10-19 11:45] LABS: Glucose Point of Care 138 mg/dl (65-105)
[2023-10-19] MEDS: INSULIN GLARGINE (*BKC) 100 UNITS/ML 8 UNITS SUB-Q (11:58)
[2023-10-19 17:05] LABS: Glucose Point of Care 126 mg/dl (65-105)
[2023-10-19] MEDS: cefTRIAXone 2 GM/NS 100 ML 2 GM/100 ML BAG IVPB (21:56)
[2023-10-19 23:20] LABS: Glucose Point of Care 187 mg/dl (65-105)
[2023-10-20] VITALS (12 sets, daily range): BP systolic 101–130; BP diastolic 49–70; PULSE 57–86; RESP 16–20; TEMP 35.6–36.5; O2SAT 94–100
[2023-10-20] MEDS: LEVOTHYROXINE SODIUM 50 MCG TABLET PO (05:10)
[2023-10-20] MEDS: CENTRAL LINE FLUSH 10 ML IV PUSH ×3 (05:11→20:31)
[2023-10-20 06:39] LABS: Basophils Absolute Auto 0.1 K/mm3 (0.0-0.1); Basophils Percent Auto 0.6 % (0.2-1.2); Eosinophils Absolute Auto 0.3 K/mm3 (0-0.3); Eosinophils Percent Auto 2.6 % (0-4.4); Hematocrit 37.1 % (37.0-47.0); Hemoglobin 10.3 g/dL (12.0-15.0); Immature Granulocyte Absolute 0.04 K/mm3 (0.00-0.031); Immature Granulocyte Percent A 0.4 % (0-0.5); Lymphocytes Absolute Auto 1.27 K/mm3 (0.9-3.2); Mean Corpuscular HGB Conc 27.8 g/dl (32-36); Mean Corpuscular Hemoglobin 22.9 pg (26-34); Mean Corpuscular Volume 82.6 fl (80-100); Mean Platelet Volume 10.9 fl (7.4-10.4); Monocytes Absolute Auto 0.7 K/mm3 (0.1-0.6); Monocytes Percent Auto 6.6 % (2.6-8.5); Neutrophils Absolute Auto 8.3 K/mm3 (1.3-6.7); Neutrophils Percent Auto 77.8 % (45.5-73.1); Nucleated Red Blood Cells Perc 0.2 % (0.0-0.2); Platelet Count Result 185 k/mm3 (150-375); Red Blood Count 4.49 M/mm3 (4.2-5.4); Red Cell Distribution Width 17.6 % (11.5-14.5); White Blood Count 10.6 K/mm3 (4.5-10.0)
[2023-10-20 06:51] LABS: Alanine Aminotransferase 89 U/L (6-35); Albumin Level 4.1 g/dL (3.5-5.1); Alkaline Phosphatase 129 U/L (38-126); Anion Gap 12 mmol/L (8-16); Aspartate Amino Transferase 91 U/L (14-36); Bilirubin,Total 0.5 mg/dL (0.2-1.3); Blood Urea Nitrogen 46 mg/dL (7-17); Calcium 8.2 mg/dL (8.4-10.2); Carbon Dioxide 19 mmol/L (22-30); Chloride 113 mmol/L (98-107); Estimated CRCL calculation 29 ml/min; Estimated Glomerular Filt Rate 23; Glucose 136 mg/dL (65-110); Potassium 4.3 mmol/L (3.4-5.0); Sodium 144 mmol/L (137-145)
[2023-10-20 07:44] LABS: Hypochromasia 1+ (NORMAL); Platelet Estimate Adequate (Adequate); Schistocytes Rare (NORMAL)
[2023-10-20 07:50] LABS: Glucose Point of Care 133 mg/dl (65-105)
[2023-10-20] MEDS: ENOXAPARIN 100 MG/ML SYRINGE 90 MG SUB-Q ×2 (09:22→20:29)
[2023-10-20] MEDS: SPIRONOLACTONE 12.5 MG TABLET PO (09:22)
[2023-10-20] MEDS: AMIODARONE HCL 200 MG TABLET 400 MG PO (09:22)
[2023-10-20] MEDS: MIDODRINE HCL 10 MG TABLET PO ×3 (09:22→17:04)
[2023-10-20] MEDS: PREGABALIN (*CRX) 50 MG CAPSULE 100 MG PO ×2 (09:22→20:29)
[2023-10-20] MEDS: CLOPIDOGREL BISULFATE 75 MG TABLET PO (09:23)
[2023-10-20] MEDS: EMPAGLIFLOZIN 25 MG TABLET PO (09:23)
[2023-10-20] MEDS: DULoxetine HCL 60 MG CAPSULE.DR PO (09:23)
[2023-10-20] MEDS: UMECLIDINIUM/VILANTEROL 62.5-25 MCG ELLIPTA 1 PUFF INHALATION (09:45)
--- NOTE | 2023-10-20 09:52 | PM.PNCARD ---
Progress Note: A&P Assessment and Plan (1) Syncope: Qualifiers: Syncope type: vasovagal syncope Qualified Code(s): R55 - Syncope and collapse Code(s): R55 - Syncope and collapse Status: Acute Assessment and Plan: Her syncope is clearly related to coughing. This is tussive syncope and no further workup needed because of syncope. She has a recent ICD implantation also (2) Pulmonary embolism: Qualifiers: Acute cor pulmonale presence: unspecified Chronicity: acute Pulmonary embolism type: other Qualified Code(s): I26.99 - Other pulmonary embolism without acute cor pulmonale Code(s): I26.99 - Other pulmonary embolism without acute cor pulmonale Status: Acute Assessment and Plan: Per pulmonology (3) Acute on chronic systolic (congestive) heart failure: Code(s): I50.23 - Acute on chronic systolic (congestive) heart failure Status: Acute Assessment and Plan: She has stabilized. She had septic shock. Off levophed. Antibiotics per hospitalist. --creatinine 2.2 today which is slightly better but will still need to hold off on a aggressive diuresis and delay restarting Entresto or spironolactone. I am going to restart her metoprolol however. Will start metoprolol succinate 25 mg daily --Resume spironolactone, Entresto, Jardiance when able --Intake and output --daily weights to be followed --Daily BMP (4) Coronary artery disease: Qualifiers: Coronary Disease-Associated Artery/Lesion type: [place] artery [place] vs. transplanted heart: unspecified whether [place] or transplanted heart Code(s): I25.10 - Atherosclerotic heart disease of [place] coronary artery without angina pectoris Status: Chronic Assessment and Plan: Continue anti-platelet and statin therapy (5) Ischemic cardiomyopathy: Code(s): I25.5 - Ischemic cardiomyopathy Status: Acute Assessment and Plan: Continue standard heart CHF regimen and agree with diuresis. Recent ICD implantation in August 2023. Subjective Date/time seen: 10/20/23 09:52 Interval history: 58-year-old admitted for test of syncope, shortness breath, heart failure Date of service 10/17/2023: Still with significant edema. Still a bit short of breath. No chest pain. Blood pressure is low however. Date of service 10/18/2023: Seen in the ICU. Transferred yesterday due to hypotension and sepsis. Blood cultures were positive. She is somnolent but denies any chest pain. Date of service 10/19/2023: She feels woozy this morning. Complaining of nausea. Breathing is better. No chest pain Date of service 10/20/2023: Still feels cold and shivering. She denies any chest pain or shortness of breath. Review of Systems Review of Systems: All systems reviewed & are unremarkable except as noted in HPI and below Constitutional: Constitutional: Denies body ache(s) and Denies excessive sweating Eyes: Eyes: Denies blurry vision ENT: Reports Normal hearing present Cardiovascular: Cardiovascular: Denies chest pain, Reports pedal edema, Reports leg edema and Reports dyspnea Respiratory: Respiratory: Reports dyspnea Gastrointestinal: Gastrointestinal: Denies abdominal pain Genitourinary: Genitourinary: Denies hematuria Musculoskeletal: Musculoskeletal: Denies back pain Integumentary/Breasts: Skin/Breast: Denies dry skin Neurologic: Reports Normal hearing present and Denies Abnormal speech present Psychiatric: Psychiatric: Denies anxiety Endocrine: Endocrine: Denies excessive sweating Hematologic/Lymphatic: Hematologic/Lymphatic: Denies easy bleeding Allergic/Immunologic: Allergic/Immunologic: Denies GI upset with certain foods Exam Narrative: Awake alert and oriented appears older than stated age Const: General: comfortable and no acute distress HENMT: Face/Nose/Sinus: Normal nares present Mouth: Yes moist mucous membranes Eyes: Gen
[2023-10-20 11:55] LABS: Glucose Point of Care 283 mg/dl (65-105)
[2023-10-20] MEDS: INSULIN GLARGINE (*BKC) 100 UNITS/ML 8 UNITS SUB-Q (12:06)
[2023-10-20] MEDS: INSULIN ASPART (*BKC) 100 UNITS/ML 10 UNITS SUB-Q ×2 (12:06→17:04)
[2023-10-20] MEDS: INSULIN ASPART (*BKC) 100 UNITS/ML SUB-Q (12:07)
--- NOTE | 2023-10-20 12:46 | P.PNNP_ITS ---
Progress Note: A&P Assessment and Plan (1) EVAN (acute kidney injury): Code(s): N17.9 - Acute kidney failure, unspecified Status: Acute Assessment and Plan: * slow improvement * suspect ATN with multifactorial etiology: * hemodynamic instability/hypotension * infection/sepsis (pneumonia + bacteremia) * medications (diuretics, entresto, anti-hypertensives...etc) * contrast exposure (CTA of chest on 10/14) * known cardiomyopathy * may have some underlying CKD given history of DM, cardiomyopathy, vascular disease, and JOSE * evaluation to date: * normal renal ultrasound * urine eosinophils negative * urine electrolytes prerenal (but this maybe more related to her cardiomyopathy/depressed EF) * CPK mildly elevated (but not likely to affect kidney function) * follow trend of repeat labs and UOP (2) Septic shock: Code(s): A41.9 - Sepsis, unspecified organism; R65.21 - Severe sepsis with septic shock Status: Acute Assessment and Plan: * resolving * presumed secondary to bacteremia and pneumonia * blood culture with Staph epidermis * was on vasopressor therapy but weaned off * albumin for volume expansion * follow trend of hemodynamics (3) Pulmonary embolism: Qualifiers: Acute cor pulmonale presence: unspecified Chronicity: acute Pulmonary embolism type: other Qualified Code(s): I26.99 - Other pulmonary embolism without acute cor pulmonale Code(s): I26.99 - Other pulmonary embolism without acute cor pulmonale Status: Acute Assessment and Plan: * as documented by CTA of chest: * subsegmental pulmonary emboli of the right lower lobe * further CT chest findings noted: * moderate size left and small right pleural effusions with associated passive atelectasis * patchy airspace opacities of the mid and upper lung zones, consistent with pneumonia versus pulmonary edema. * 14 mm right perihilar upper lobe nodule concerning for primary bronchogenic carcinoma. Follow-up CT in three months is recommended. * mediastinal and bilateral hilar lymphadenopathy, reactive versus metastatic disease. * on anticoagulation * follow respiratory status (4) Pneumonia: Code(s): J18.9 - Pneumonia, unspecified organism Status: Acute Assessment and Plan: * admission CXR and CT chest demonstrated this * follow repeat cultures * continue antibiotics as outlined (5) CHF (congestive heart failure): Qualifiers: Heart failure chronicity: chronic Heart failure type: systolic Qualified Code(s): I50.22 - Chronic systolic (congestive) heart failure Code(s): I50.9 - Heart failure, unspecified Status: Acute Assessment and Plan: * known history of systolic heart failure with EF of 20% * s/p AICD implantation in August 2023 * Cardiology following the patient * spironolactone, Entresto, furosemide on hold due to hypotension * resumed on metoprolol today (6) Chronic obstructive pulmonary disease: Qualifiers: COPD type: unspecified COPD Qualified Code(s): J44.9 - Chronic obstructive pulmonary disease, unspecified Code(s): J44.9 - Chronic obstructive pulmonary disease, unspecified Status: Chronic Assessment and Plan: * continue bronchodilator therapy * supplemental oxygen * complicated by PE, pneumonia, and volume overload * on supplemental oxygen (7) Moderate sized pleural effusion: Code(s): J90 - Pleural effusion, not elsewhere classified Status: Acute
--- NOTE | 2023-10-20 12:46 | PM.PNNEP ---
Progress Note: A&P Assessment and Plan (1) EVAN (acute kidney injury): Code(s): N17.9 - Acute kidney failure, unspecified Status: Acute Assessment and Plan: slow improvement suspect ATN with multifactorial etiology: hemodynamic instability/hypotension infection/sepsis (pneumonia + bacteremia) medications (diuretics, entresto, anti-hypertensives...etc) contrast exposure (CTA of chest on 10/14) known cardiomyopathy may have some underlying CKD given history of DM, cardiomyopathy, vascular disease, and JOSE evaluation to date: normal renal ultrasound urine eosinophils negative urine electrolytes prerenal (but this maybe more related to her cardiomyopathy/depressed EF) CPK mildly elevated (but not likely to affect kidney function) follow trend of repeat labs and UOP (2) Septic shock: Code(s): A41.9 - Sepsis, unspecified organism; R65.21 - Severe sepsis with septic shock Status: Acute Assessment and Plan: resolving presumed secondary to bacteremia and pneumonia blood culture with Staph epidermis was on vasopressor therapy but weaned off albumin for volume expansion follow trend of hemodynamics (3) Pulmonary embolism: Qualifiers: Acute cor pulmonale presence: unspecified Chronicity: acute Pulmonary embolism type: other Qualified Code(s): I26.99 - Other pulmonary embolism without acute cor pulmonale Code(s): I26.99 - Other pulmonary embolism without acute cor pulmonale Status: Acute Assessment and Plan: as documented by CTA of chest: subsegmental pulmonary emboli of the right lower lobe further CT chest findings noted: moderate size left and small right pleural effusions with associated passive atelectasis patchy airspace opacities of the mid and upper lung zones, consistent with pneumonia versus pulmonary edema. 14 mm right perihilar upper lobe nodule concerning for primary bronchogenic carcinoma. Follow-up CT in three months is recommended. mediastinal and bilateral hilar lymphadenopathy, reactive versus metastatic disease. on anticoagulation follow respiratory status (4) Pneumonia: Code(s): J18.9 - Pneumonia, unspecified organism Status: Acute Assessment and Plan: admission CXR and CT chest demonstrated this follow repeat cultures continue antibiotics as outlined (5) CHF (congestive heart failure): Qualifiers: Heart failure chronicity: chronic Heart failure type: systolic Qualified Code(s): I50.22 - Chronic systolic (congestive) heart failure Code(s): I50.9 - Heart failure, unspecified Status: Acute Assessment and Plan: known history of systolic heart failure with EF of 20% s/p AICD implantation in August 2023 Cardiology following the patient spironolactone, Entresto, furosemide on hold due to hypotension resumed on metoprolol today (6) Chronic obstructive pulmonary disease: Qualifiers: COPD type: unspecified COPD Qualified Code(s): J44.9 - Chronic obstructive pulmonary disease, unspecified Code(s): J44.9 - Chronic obstructive pulmonary disease, unspecified Status: Chronic Assessment and Plan: continue bronchodilator therapy supplemental oxygen complicated by PE, pneumonia, and volume overload on supplemental oxygen (7) Moderate sized pleural effusion: Code(s): J90 - Pleural effusion, not elsewhere classified Status: Acute Assessment and Plan: noted by admission imaging consider thoracentesis if unable to diuresis (8) Diabetes mellitus: Code(s): E11.9 - Type 2 diabetes mellitus without complications Status: Chronic Assessment and Plan: monitor accu-cheks glycemic control per dry pan feeder and hospitalist Will continue to follow. Subjective Date/time seen: 10/20/23 12:46 Interval history: Follow-up for acute kidney injury/acute renal failure. Mara
--- NOTE | 2023-10-20 15:43 | PM.IMPN ---
Progress Note: A&P Assessment and Plan (1) Syncope: Qualifiers: Syncope type: vasovagal syncope Qualified Code(s): R55 - Syncope and collapse Code(s): R55 - Syncope and collapse Status: Acute Assessment and Plan: Had recent ICD implantation cardiology following (2) Pulmonary embolism: Qualifiers: Acute cor pulmonale presence: unspecified Chronicity: acute Pulmonary embolism type: other Qualified Code(s): I26.99 - Other pulmonary embolism without acute cor pulmonale Code(s): I26.99 - Other pulmonary embolism without acute cor pulmonale Status: Acute Assessment and Plan: Full anticoagulation (3) Acute on chronic systolic (congestive) heart failure: Code(s): I50.23 - Acute on chronic systolic (congestive) heart failure Status: Acute Assessment and Plan: Nodule recommendation appreciated --Resume spironolactone, metoprolol, Entresto, Jardiance overnight Daily intake and output (4) Coronary artery disease: Qualifiers: Coronary Disease-Associated Artery/Lesion type: [place] artery [place] vs. transplanted heart: unspecified whether [place] or transplanted heart Code(s): I25.10 - Atherosclerotic heart disease of [place] coronary artery without angina pectoris Status: Chronic Assessment and Plan: Continue antiplatelet therapy continue statin (5) Ischemic cardiomyopathy: Code(s): I25.5 - Ischemic cardiomyopathy Status: Acute Assessment and Plan: Continue with diuresis has recent ICD placed. 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 following Positive blood culture probably contaminant (7) CHF exacerbation: Code(s): I50.9 - Heart failure, unspecified Status: Acute Assessment and Plan: Acute and of chronic systolic CHF exacerbation of cardiology following diuresis was held due to patient being on pressors (8) Pneumonia: Code(s): J18.9 - Pneumonia, unspecified organism Status: Acute Assessment and Plan: Continue IV antibiotics (9) Moderate sized pleural effusion: Code(s): J90 - Pleural effusion, not elsewhere classified Status: Acute Assessment and Plan: Improved (10) Suspected sleep apnea: Code(s): R29.818 - Other symptoms and signs involving the nervous system Status: Chronic Assessment and Plan: Resume home treatment (11) COPD exacerbation: Code(s): J44.1 - Chronic obstructive pulmonary disease with (acute) exacerbation Status: Acute Assessment and Plan: Continue nebulizer treatment (12) Type 2 diabetes mellitus with hyperglycemia, with long-term current use of insulin: Code(s): E11.65 - Type 2 diabetes mellitus with hyperglycemia; Z79.4 - retirement (current) use of insulin Status: Chronic Assessment and Plan: Continue current treatment insulin sliding scale (13) Lung mass: Code(s): R91.8 - Other nonspecific abnormal finding of lung field Status: Acute Assessment and Plan: Concern for lung mass follow-up with pulmonology as outpatient Plan Anticipate discharge in 2 with the Subjective Date/time seen: 10/20/23 15:43 Interval history: Patient seen and examined Patient was found to have bacteremia associated with septic shock associated with acute and of chronic systolic CHF exacerbation required pressor IV antibiotics also has worsening renal failure required pressors Diuresis was held due to patient being on pressors patient also has found to have pulmonary embolism pleural effusion and atelectasis and pneumonia patient was treated with IV antibiotics therapeutic Lovenox Patient feels better today cardio
[2023-10-20 16:34] LABS: Glucose Point of Care 193 mg/dl (65-105)
[2023-10-20 18:04] LABS: Glucose Point of Care 205 mg/dl (65-105)
[2023-10-20] MEDS: cefTRIAXone 2 GM/NS 100 ML 2 GM/100 ML BAG IVPB (20:30)
[2023-10-20 21:06] LABS: Vancomycin Random 19.4 ug/mL (10-20)
[2023-10-20 22:17] LABS: Glucose Point of Care 105 mg/dl (65-105)
[2023-10-20 22:17] LABS: Glucose Point of Care 83 mg/dl (65-105)
[2023-10-20] MEDS: HYDROcodone/acetaminophen (*CRX) 5-325 MG TABLET 1 TAB PO (22:54)
[2023-10-21] VITALS (14 sets, daily range): BP systolic 104–115; BP diastolic 59–76; PULSE 69–86; RESP 18–20; TEMP 36.1–36.3; O2SAT 93–100
[2023-10-21] MEDS: VANCOMYCIN 1,250 MG/NS 250 ML BAG 166.67 MG IVPB (00:36)
[2023-10-21] MEDS: CENTRAL LINE FLUSH 10 ML IV PUSH ×3 (05:54→21:06)
[2023-10-21] MEDS: LEVOTHYROXINE SODIUM 50 MCG TABLET PO (05:54)
[2023-10-21 06:40] LABS: Basophils Absolute Auto 0.1 K/mm3 (0.0-0.1); Basophils Percent Auto 0.8 % (0.2-1.2); Eosinophils Absolute Auto 0.2 K/mm3 (0-0.3); Eosinophils Percent Auto 2.3 % (0-4.4); Hematocrit 33.9 % (37.0-47.0); Hemoglobin 9.5 g/dL (12.0-15.0); Immature Granulocyte Absolute 0.04 K/mm3 (0.00-0.031); Immature Granulocyte Percent A 0.5 % (0-0.5); Lymphocytes Absolute Auto 1.47 K/mm3 (0.9-3.2); Lymphocytes Percent Auto 17.8 % (18.3-44.2); Mean Corpuscular Hemoglobin 23.2 pg (26-34); Mean Corpuscular Volume 82.7 fl (80-100); Mean Platelet Volume 11.3 fl (7.4-10.4); Monocytes Absolute Auto 0.7 K/mm3 (0.1-0.6); Monocytes Percent Auto 8.3 % (2.6-8.5); Neutrophils Absolute Auto 5.8 K/mm3 (1.3-6.7); Neutrophils Percent Auto 70.3 % (45.5-73.1); Platelet Count Result 154 k/mm3 (150-375); Red Cell Distribution Width 17.6 % (11.5-14.5); White Blood Count 8.3 K/mm3 (4.5-10.0)
[2023-10-21 06:49] LABS: Alanine Aminotransferase 64 U/L (6-35); Albumin Level 3.9 g/dL (3.5-5.1); Alkaline Phosphatase 120 U/L (38-126); Anion Gap 10 mmol/L (8-16); Aspartate Amino Transferase 51 U/L (14-36); Bilirubin,Total 0.4 mg/dL (0.2-1.3); Blood Urea Nitrogen 45 mg/dL (7-17); Calcium 8.3 mg/dL (8.4-10.2); Carbon Dioxide 21 mmol/L (22-30); Chloride 113 mmol/L (98-107); Estimated CRCL calculation 33 ml/min; Estimated Glomerular Filt Rate 27; Glucose 84 mg/dL (65-110); Potassium 4.2 mmol/L (3.4-5.0); Sodium 144 mmol/L (137-145)
[2023-10-21 07:29] LABS: Hypochromasia 1+ (NORMAL); Ovalocytes 1+ (NORMAL); Platelet Estimate Adequate (Adequate); Schistocytes None Seen (NORMAL)
[2023-10-21 07:30] LABS: Burr Cells 1+ (NORMAL)
[2023-10-21 07:43] LABS: Glucose Point of Care 96 mg/dl (65-105)
[2023-10-21] MEDS: UMECLIDINIUM/VILANTEROL 62.5-25 MCG ELLIPTA 1 PUFF INHALATION (08:47)
--- NOTE | 2023-10-21 09:00 | PCPTNOTE ---
The patient treatment was not able to be completed in A.M. due to patient sleeping. Will plan to continue treatment per plan of care.
[2023-10-21] MEDS: MIDODRINE HCL 10 MG TABLET PO ×3 (09:54→16:59)
[2023-10-21] MEDS: DULoxetine HCL 60 MG CAPSULE.DR PO (09:54)
[2023-10-21] MEDS: AMIODARONE HCL 200 MG TABLET 400 MG PO (09:55)
[2023-10-21] MEDS: METOPROLOL SUCCINATE EXT REL 12.5 MG TABCR PO ×2 (09:55→21:04)
[2023-10-21] MEDS: CLOPIDOGREL BISULFATE 75 MG TABLET PO (09:55)
[2023-10-21] MEDS: EMPAGLIFLOZIN 25 MG TABLET PO (09:55)
[2023-10-21] MEDS: PREGABALIN (*CRX) 50 MG CAPSULE 100 MG PO ×2 (09:57→21:04)
[2023-10-21] MEDS: SPIRONOLACTONE 12.5 MG TABLET PO (09:57)
[2023-10-21] MEDS: ENOXAPARIN 100 MG/ML SYRINGE 90 MG SUB-Q ×2 (09:57→21:05)
--- NOTE | 2023-10-21 10:07 | PM.PNCARD ---
Progress Note: A&P Assessment and Plan (1) Syncope: Qualifiers: Syncope type: vasovagal syncope Qualified Code(s): R55 - Syncope and collapse Code(s): R55 - Syncope and collapse Status: Acute Assessment and Plan: Her syncope is clearly related to coughing. This is tussive syncope and no further workup needed because of syncope. She has a recent ICD implantation also (2) Pulmonary embolism: Qualifiers: Acute cor pulmonale presence: unspecified Chronicity: acute Pulmonary embolism type: other Qualified Code(s): I26.99 - Other pulmonary embolism without acute cor pulmonale Code(s): I26.99 - Other pulmonary embolism without acute cor pulmonale Status: Acute Assessment and Plan: Per pulmonology (3) Acute on chronic systolic (congestive) heart failure: Code(s): I50.23 - Acute on chronic systolic (congestive) heart failure Status: Acute Assessment and Plan: She has stabilized. She had septic shock. Off levophed. Antibiotics per hospitalist. --creatinine 1.9 today which is better, but will continue to hold diuresis for today, hopefully able to resume tomorrow. --Hold Entresto, spironolactone, jardiance for now --Continue metoprolol succinate 25 mg daily --Intake and output --daily weights to be followed --Daily BMP (4) Coronary artery disease: Qualifiers: Coronary Disease-Associated Artery/Lesion type: [place] artery [place] vs. transplanted heart: unspecified whether [place] or transplanted heart Code(s): I25.10 - Atherosclerotic heart disease of [place] coronary artery without angina pectoris Status: Chronic Assessment and Plan: Continue anti-platelet and statin therapy (5) Ischemic cardiomyopathy: Code(s): I25.5 - Ischemic cardiomyopathy Status: Acute Assessment and Plan: Resume standard heart CHF regimen when able. Recent ICD implantation in August 2023. Subjective Date/time seen: 10/21/23 10:07 Interval history: 58-year-old admitted for test of syncope, shortness breath, heart failure Date of service 10/17/2023: Still with significant edema. Still a bit short of breath. No chest pain. Blood pressure is low however. Date of service 10/18/2023: Seen in the ICU. Transferred yesterday due to hypotension and sepsis. Blood cultures were positive. She is somnolent but denies any chest pain. Date of service 10/19/2023: She feels woozy this morning. Complaining of nausea. Breathing is better. No chest pain Date of service 10/20/2023: Still feels cold and shivering. She denies any chest pain or shortness of breath. Date of service 10/20/2022: Feeling shaky. States her breathing is worse today. No chest pain. Review of Systems Review of Systems: All systems reviewed & are unremarkable except as noted in HPI and below Constitutional: Constitutional: Denies body ache(s) and Denies excessive sweating Eyes: Eyes: Denies blurry vision ENT: Reports Normal hearing present Cardiovascular: Cardiovascular: Denies chest pain, Reports pedal edema, Reports leg edema and Reports dyspnea Respiratory: Respiratory: Reports dyspnea Gastrointestinal: Gastrointestinal: Denies abdominal pain Genitourinary: Genitourinary: Denies hematuria Musculoskeletal: Musculoskeletal: Denies back pain Integumentary/Breasts: Skin/Breast: Denies dry skin Neurologic: Reports Normal hearing present and Denies Abnormal speech present Psychiatric: Psychiatric: Denies anxiety Endocrine: Endocrine: Denies excessive sweating Hematologic/Lymphatic: Hematologic/Lymphatic: Denies easy bleeding Allergic/Immunologic: Allergic/Immunologic: Denies GI upset with certain foods Exam Narrative: Sleeping but awakens to voice Const: General: comfortable and no acute distress HENMT: Face/Nose/Sinus: Normal nares present Mouth: Yes moist mucous membranes Eyes: General: appearance nor
[2023-10-21 11:35] LABS: Glucose Point of Care 90 mg/dl (65-105)
--- NOTE | 2023-10-21 13:00 | PM.IMPN ---
Progress Note: A&P Assessment and Plan (1) Syncope: Qualifiers: Syncope type: vasovagal syncope Qualified Code(s): R55 - Syncope and collapse Code(s): R55 - Syncope and collapse Status: Acute Assessment and Plan: Had recent ICD implantation cardiology following (2) Pulmonary embolism: Qualifiers: Acute cor pulmonale presence: unspecified Chronicity: acute Pulmonary embolism type: other Qualified Code(s): I26.99 - Other pulmonary embolism without acute cor pulmonale Code(s): I26.99 - Other pulmonary embolism without acute cor pulmonale Status: Acute Assessment and Plan: Full anticoagulation (3) Acute on chronic systolic (congestive) heart failure: Code(s): I50.23 - Acute on chronic systolic (congestive) heart failure Status: Acute Assessment and Plan: Nodule recommendation appreciated --Resume spironolactone, metoprolol, Entresto, Jardiance overnight Daily intake and output (4) Coronary artery disease: Qualifiers: Coronary Disease-Associated Artery/Lesion type: [place] artery [place] vs. transplanted heart: unspecified whether [place] or transplanted heart Code(s): I25.10 - Atherosclerotic heart disease of [place] coronary artery without angina pectoris Status: Chronic Assessment and Plan: Continue antiplatelet therapy continue statin (5) Ischemic cardiomyopathy: Code(s): I25.5 - Ischemic cardiomyopathy Status: Acute Assessment and Plan: Continue with diuresis has recent ICD placed. 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 Positive blood culture probably contaminant (7) CHF exacerbation: Code(s): I50.9 - Heart failure, unspecified Status: Acute Assessment and Plan: Acute and of chronic systolic CHF exacerbation of cardiology following diuresis was held due to patient being on pressors (8) Pneumonia: Code(s): J18.9 - Pneumonia, unspecified organism Status: Acute Assessment and Plan: Continue IV antibiotics (9) Moderate sized pleural effusion: Code(s): J90 - Pleural effusion, not elsewhere classified Status: Acute Assessment and Plan: Improved (10) Suspected sleep apnea: Code(s): R29.818 - Other symptoms and signs involving the nervous system Status: Chronic Assessment and Plan: Resume home treatment (11) COPD exacerbation: Code(s): J44.1 - Chronic obstructive pulmonary disease with (acute) exacerbation Status: Acute Assessment and Plan: Continue nebulizer treatment (12) Type 2 diabetes mellitus with hyperglycemia, with long-term current use of insulin: Code(s): E11.65 - Type 2 diabetes mellitus with hyperglycemia; Z79.4 - [facility] (current) use of insulin Status: Chronic Assessment and Plan: Continue current treatment insulin sliding scale (13) Lung mass: Code(s): R91.8 - Other nonspecific abnormal finding of lung field Status: Acute Assessment and Plan: Concern for lung mass follow-up with pulmonology as outpatient (14) Myoclonic jerking: Code(s): G25.3 - Myoclonus Status: Acute Assessment and Plan: 10/21/23: Neurology consulted Plan Anticipate discharge in 2-3 days Time Spent With Patient Time with patient: 25 - 35 minutes Subjective Date/time seen: 10/21/23 13:00 Interval history: Patient seen and examined Patient was found to have bacteremia associated with septic shock associated with acute and of chronic systolic CHF exacerbation required pressor IV antibiotics also has worsening renal failure required pressors Diuresis was held due to patient being on p
--- NOTE | 2023-10-21 13:18 | PM.PNNEP ---
Progress Note: A&P Assessment and Plan (1) EVAN (acute kidney injury): Code(s): N17.9 - Acute kidney failure, unspecified Status: Acute Assessment and Plan: slow improvement suspect ATN with multifactorial etiology: hemodynamic instability/hypotension infection/sepsis (pneumonia + bacteremia) medications (diuretics, entresto, anti-hypertensives...etc) contrast exposure (CTA of chest on 10/14) known cardiomyopathy may have some underlying CKD given history of DM, cardiomyopathy, vascular disease, and JOSE evaluation to date: normal renal ultrasound urine eosinophils negative urine electrolytes prerenal (but this maybe more related to her cardiomyopathy/depressed EF) CPK mildly elevated (but not likely to affect kidney function) follow trend of repeat labs and UOP (2) Septic shock: Code(s): A41.9 - Sepsis, unspecified organism; R65.21 - Severe sepsis with septic shock Status: Acute Assessment and Plan: resolving presumed secondary to bacteremia and pneumonia blood culture with Staph epidermis was on vasopressor therapy but weaned off follow trend of hemodynamics (3) Pulmonary embolism: Qualifiers: Acute cor pulmonale presence: unspecified Chronicity: acute Pulmonary embolism type: other Qualified Code(s): I26.99 - Other pulmonary embolism without acute cor pulmonale Code(s): I26.99 - Other pulmonary embolism without acute cor pulmonale Status: Acute Assessment and Plan: as documented by CTA of chest: subsegmental pulmonary emboli of the right lower lobe further CT chest findings noted: moderate size left and small right pleural effusions with associated passive atelectasis patchy airspace opacities of the mid and upper lung zones, consistent with pneumonia versus pulmonary edema. 14 mm right perihilar upper lobe nodule concerning for primary bronchogenic carcinoma. Follow-up CT in three months is recommended. mediastinal and bilateral hilar lymphadenopathy, reactive versus metastatic disease. on anticoagulation follow respiratory status (4) Pneumonia: Code(s): J18.9 - Pneumonia, unspecified organism Status: Acute Assessment and Plan: admission CXR and CT chest demonstrated this follow repeat cultures continue antibiotics as outlined (5) CHF (congestive heart failure): Qualifiers: Heart failure chronicity: chronic Heart failure type: systolic Qualified Code(s): I50.22 - Chronic systolic (congestive) heart failure Code(s): I50.9 - Heart failure, unspecified Status: Acute Assessment and Plan: known history of systolic heart failure with EF of 20% s/p AICD implantation in August 2023 Cardiology following the patient spironolactone, Entresto, furosemide on hold due to hypotension resumed on metoprolol resume other medications when able (6) Chronic obstructive pulmonary disease: Qualifiers: COPD type: unspecified COPD Qualified Code(s): J44.9 - Chronic obstructive pulmonary disease, unspecified Code(s): J44.9 - Chronic obstructive pulmonary disease, unspecified Status: Chronic Assessment and Plan: continue bronchodilator therapy supplemental oxygen complicated by PE, pneumonia, and volume overload on supplemental oxygen (7) Moderate sized pleural effusion: Code(s): J90 - Pleural effusion, not elsewhere classified Status: Acute Assessment and Plan: noted by admission imaging consider thoracentesis if unable to diuresis however, given need for anticoagulation, this might be difficult (8) Diabetes mellitus: Code(s): E11.9 - Type 2 diabetes mellitus without complications Status: Chronic Assessment and Plan: monitor accu-cheks glycemic control per laboratory apparatus glass blower and hospitalist Will continue to follow. Subjective Date/time seen: 10/21/23 13:18 Interval hist
[2023-10-21 16:15] LABS: Glucose Point of Care 89 mg/dl (65-105)
--- NOTE | 2023-10-21 16:49 | WPDNEURCNPN ---
Assessment and Plan Assessment and plan (1) Myoclonic jerking: Code(s): G25.3 - Myoclonus Status: Acute Assessment and Plan: patient has metabolic myoclonic or also or asterixis 6 which may be seen commonly with renal failure however other metabolic conditions may also lead to the same. The treatment is that of the underlying condition and medical therapy for these is under history and often use unacceptable side effects. (2) EVAN (acute kidney injury): Code(s): N17.9 - Acute kidney failure, unspecified Status: Acute (3) Lung mass: Code(s): R91.8 - Other nonspecific abnormal finding of lung field Status: Acute (4) Ischemic cardiomyopathy: Code(s): I25.5 - Ischemic cardiomyopathy Status: Acute (5) Suspected sleep apnea: Code(s): R29.818 - Other symptoms and signs involving the nervous system Status: Chronic (6) Diabetes mellitus: Code(s): E11.9 - Type 2 diabetes mellitus without complications Status: Chronic Plan 1. Check her B12 DN EEG 2. Consider management of the underlying medical conditions since the drug therapy for myoclonic jerks indicated and and mainly to unacceptable side effects. I did consider Amiodarone induced movement disorder as a potential cause for the presentation but to my knowledge, amiodarone can lead to essential type tremor in some cases her this particular presentation is not consistent with the same at this time. Consult date: 10/21/23 Time Seen: 16:10 Reason for consult: Jerking of muscles HPI: Tiff Vaughn is a 58 year old female with history of for acute kidney injury, diabetes mellitus, right below knee amputation, possible carcinoma of lung, bilateral pleural effusion, coronary artery disease, previous history of heavy smoking, abnormal liver and, obstructive sleep apnea syndrome not on CPAP seen for initial neurology given patient to states that she has no specific symptoms nor she had any passing out spells however overall she does not feel well. Her records were reviewed. Her creatinine was 1.9 AST 51 ALT 64 hemoglobin 9.5 hematocrit 34 previous he is also on amiodarone. The patient also had been diagnosed to have disease and diabetic polyneuropathy. She has history of pelvic fracture and peripheral vascular disease a in patient home sleep apnea screening done in 2021 had shown an AHI of 22 per hour. Review of Systems Review of Systems: All systems reviewed & are unremarkable except as noted in HPI and below PMFSH Past Medical History Medical History Anxiety Charcot's joint of foot in type 2 diabetes mellitus Of the right foot Chronic obstructive pulmonary disease Coronary artery disease Left anterior descending stent 01/2019. Usual nutrition instructor is Dr. 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 Peripheral vascular disease due to secondary diabetes Serotonin syndrome Suspected sleep apnea AHI 35 on apnea link on 06/16/2022. Surgical History Surgical History History of appendectomy History of section x3 History of hysterectomy Partial, ovaries retained. Due to cervical changes. History of tonsillectomy and adenoidectomy History of vertebroplasty Hx of BKA Right 11/19/20 at [facility] S/P CABG x 5 w/MVR and left atrial appendage ligation Status post cholecystectomy Stented coronary artery X1 Family History Family History Sibling Zulma
[2023-10-21 18:38] LABS: Glucose Point of Care 136 mg/dl (65-105)
--- NOTE | 2023-10-21 19:06 | PC.NURSE ---
On 10/21/23, the LINE INSTALLER, Ladonna Florez, provided care and completed [employer] documentation on this patient. I have reviewed the LINE INSTALLER's documentation and agree with the findings.
[2023-10-21] MEDS: cefTRIAXone 2 GM/NS 100 ML 2 GM/100 ML BAG IVPB (21:02)
[2023-10-22] VITALS (10 sets, daily range): BP systolic 108–132; BP diastolic 57–88; PULSE 63–89; RESP 14–20; TEMP 36.1–36.5; O2SAT 92–99
[2023-10-22 05:25] LABS: Glucose Point of Care 212 mg/dl (65-105)
[2023-10-22] MEDS: LEVOTHYROXINE SODIUM 50 MCG TABLET PO (05:54)
[2023-10-22] MEDS: CENTRAL LINE FLUSH 10 ML IV PUSH ×3 (05:55→20:08)
[2023-10-22 07:51] LABS: Glucose Point of Care 116 mg/dl (65-105)
[2023-10-22] MEDS: AMIODARONE HCL 200 MG TABLET 400 MG PO (07:58)
[2023-10-22] MEDS: DULoxetine HCL 60 MG CAPSULE.DR PO (07:59)
[2023-10-22] MEDS: ENOXAPARIN 100 MG/ML SYRINGE 90 MG SUB-Q (07:59)
[2023-10-22] MEDS: MIDODRINE HCL 10 MG TABLET PO ×3 (07:59→16:08)
[2023-10-22] MEDS: PREGABALIN (*CRX) 50 MG CAPSULE 100 MG PO (07:59)
[2023-10-22] MEDS: SPIRONOLACTONE 12.5 MG TABLET PO (07:59)
[2023-10-22] MEDS: EMPAGLIFLOZIN 25 MG TABLET PO (07:59)
[2023-10-22] MEDS: CLOPIDOGREL BISULFATE 75 MG TABLET PO (07:59)
[2023-10-22] MEDS: METOPROLOL SUCCINATE EXT REL 12.5 MG TABCR PO ×2 (07:59→20:07)
--- NOTE | 2023-10-22 08:38 | PM.PNCARD ---
Progress Note: A&P Assessment and Plan (1) Acute on chronic systolic (congestive) heart failure: Code(s): I50.23 - Acute on chronic systolic (congestive) heart failure Status: Acute Assessment and Plan: She has stabilized. She had septic shock. Off levophed. Antibiotics per hospitalist. --creatinine 1.9 today. Will resume IV furosemide 40 mg every 12 hours. Hopefully can shift to p.o. furosemide tomorrow. --continue to hold Entresto, spironolactone, jardiance for now --Continue metoprolol succinate 25 mg daily --Intake and output --daily weights to be followed --Daily BMP (2) Syncope: Qualifiers: Syncope type: vasovagal syncope Qualified Code(s): R55 - Syncope and collapse Code(s): R55 - Syncope and collapse Status: Acute Assessment and Plan: Her syncope is clearly related to coughing. This is tussive syncope and no further workup needed because of syncope. She has a recent ICD implantation also (3) Pulmonary embolism: Qualifiers: Acute cor pulmonale presence: unspecified Chronicity: acute Pulmonary embolism type: other Qualified Code(s): I26.99 - Other pulmonary embolism without acute cor pulmonale Code(s): I26.99 - Other pulmonary embolism without acute cor pulmonale Status: Acute Assessment and Plan: Per pulmonology (4) Coronary artery disease: Qualifiers: Coronary Disease-Associated Artery/Lesion type: [place] artery [place] vs. transplanted heart: unspecified whether [place] or transplanted heart Code(s): I25.10 - Atherosclerotic heart disease of [place] coronary artery without angina pectoris Status: Chronic Assessment and Plan: Continue anti-platelet and statin therapy (5) Ischemic cardiomyopathy: Code(s): I25.5 - Ischemic cardiomyopathy Status: Acute Assessment and Plan: Resume standard heart CHF regimen when able. Recent ICD implantation in August 2023. Subjective Date/time seen: 10/22/23 08:38 Interval history: 58-year-old admitted for test of syncope, shortness breath, heart failure Date of service 10/17/2023: Still with significant edema. Still a bit short of breath. No chest pain. Blood pressure is low however. Date of service 10/18/2023: Seen in the ICU. Transferred yesterday due to hypotension and sepsis. Blood cultures were positive. She is somnolent but denies any chest pain. Date of service 10/19/2023: She feels woozy this morning. Complaining of nausea. Breathing is better. No chest pain Date of service 10/20/2023: Still feels cold and shivering. She denies any chest pain or shortness of breath. Date of service 10/21/2023: Feeling shaky. States her breathing is worse today. No chest pain. Date of service 10/22/2023: She feels better today, complains of weakness but her breathing has improved. Able to lay flat. Review of Systems Review of Systems: All systems reviewed & are unremarkable except as noted in HPI and below Constitutional: Constitutional: Denies body ache(s) and Denies excessive sweating Eyes: Eyes: Denies blurry vision ENT: Reports Normal hearing present Cardiovascular: Cardiovascular: Denies chest pain, Reports pedal edema, Reports leg edema and Reports dyspnea Respiratory: Respiratory: Reports dyspnea Gastrointestinal: Gastrointestinal: Denies abdominal pain Genitourinary: Genitourinary: Denies hematuria Musculoskeletal: Musculoskeletal: Denies back pain Integumentary/Breasts: Skin/Breast: Denies dry skin Neurologic: Reports Normal hearing present and Denies Abnormal speech present Psychiatric: Psychiatric: Denies anxiety Endocrine: Endocrine: Denies excessive sweating Hematologic/Lymphatic: Hematologic/Lymphatic: Denies easy bleeding Allergic/Immunologic: Allergic/Immunologic: Denies GI upset with certain foods Exam Narrative: Sleeping but awakens to voice Const: General: comfor
[2023-10-22] MEDS: UMECLIDINIUM/VILANTEROL 62.5-25 MCG ELLIPTA 1 PUFF INHALATION (08:45)
--- NOTE | 2023-10-22 08:52 | WPDNEUROPN ---
Progress Note: A&P Assessment and Plan (1) Asterixis: Code(s): R27.8 - Other lack of coordination Status: Acute (2) EVAN (acute kidney injury): Code(s): N17.9 - Acute kidney failure, unspecified Status: Acute (3) Septic shock: Code(s): A41.9 - Sepsis, unspecified organism; R65.21 - Severe sepsis with septic shock Status: Acute (4) Pulmonary embolism: Qualifiers: Acute cor pulmonale presence: unspecified Chronicity: acute Pulmonary embolism type: other Qualified Code(s): I26.99 - Other pulmonary embolism without acute cor pulmonale Code(s): I26.99 - Other pulmonary embolism without acute cor pulmonale Status: Acute Plan Ms. Vaughn is a 58 year old female with a complex past medical history, currently admitted due to septic shock with renal failure and acute on chronic HF, also complicated by pulmonary embolism. She has was to have jerking movements during this admission. Exam is suggestive of asterixis, likely secondary to underlying metabolic etiologies. Most likely related to renal failure and uremia. LFTs only slightly elevated but hepatic injury can also be a cause. Patient is currently on pregabalin, which can also exacerbate or produce myoclonus in the setting of renal injury. - Obtain MRI brain - Reduce pregabalin dose to 50mg BID for now given renal disease - Check ammonia level Subjective Date/time seen: 10/22/23 08:52 Interval history: Ms. Vaughn is a 58 year old female with a history of CHF, NSTEMI, CAD, HLD, DM, anxiety, COPD, PAD who is currently admitted for bacteremia, septic shock. Also being treated for pulmonary embolism and renal failure. Patient found to have 'myoclonic jerking' during this admission. CT head done on 10/15/23 showed no acute findings. Labs are significant for uremia (45). Her magnesium and calcium levels are normal. ALT and AST are elevated slightly at 51 and 64 respectively. Her phos is a bit elevated at 5.7. Ammonia level has not been checked. Dr. Valles has seen the patient and noted asterixis on exam. Patient reports that the jerking movements are better. She takes Lyrica 100mg BID for chronic pain and diabetic neuropathy. She does not feel that it helps very much. Review of Systems Review of Systems: All systems reviewed & are unremarkable except as noted in HPI and below Exam Const: General: comfortable and no acute distress HENMT: Mouth: Yes moist mucous membranes Eyes: Pupils: Equal, round and reactive pupils present EOM: EOMs intact bilaterally Resp: Effort & Inspection: normal respiratory effort Skin: General skin exam: normal color Neuro: Other: Pupils equal and reactive bilaterally, EOMI, face symmetric, tongue protrudes midline, palate midline. 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 Sensation is symmetric bilaterally. Asterixis is noted with hands outstretched bilaterally. FNF normal bilaterally. Language comprehension and fluency intact. Gait deferred. Extrem: Other: R below knee amputation Psych: Mental Status: mental status grossly normal Affect: normal affect Objective Data Vital Signs Vital Signs: Vital Signs - 24 hr 10/21/23 09:55 10/21/23 09:55 10/21/23 10:00 Temperature Pulse Rate 83 83 83 Respiratory Rate Blood Pressure 104/62 Pulse Oximetry 100 Oxygen Delivery Oxygen Flow Rate 10/21/23 09:50 10/21/23 14:00 10/21/23 12:00 Temperature 36.2 C L Pulse Rate 75 86 Respiratory Rate 18 Blood Pressure 106/59 L Pulse Oximetry 100 98 Oxygen Delivery Nasal Cannula Oxygen Flow Rate 2 10/21/23 16:00 10/21/23 21:04 10/21/23 21:05 Temperature Pulse Rate 74 69 70 Respiratory Rate Blood Pressure Pulse Oximetry Oxygen Delivery Oxygen Flow Rate 10/21/23 21:05 10/21/23 22:00 10/22/23
--- NOTE | 2023-10-22 10:45 | PM.PNNEP ---
Progress Note: A&P Assessment and Plan (1) EVAN (acute kidney injury): Code(s): N17.9 - Acute kidney failure, unspecified Status: Acute Assessment and Plan: slow improvement noted suspect ATN with multifactorial etiology: hemodynamic instability/hypotension infection/sepsis (pneumonia + bacteremia) medications (diuretics, entresto, anti-hypertensives...etc) contrast exposure (CTA of chest on 10/14) known cardiomyopathy may have some underlying CKD given history of DM, cardiomyopathy, vascular disease, and JOSE evaluation to date: normal renal ultrasound urine eosinophils negative urine electrolytes prerenal (but this maybe more related to her cardiomyopathy/depressed EF) CPK mildly elevated (but not likely to affect kidney function) follow trend of repeat labs and UOP (2) Septic shock: Code(s): A41.9 - Sepsis, unspecified organism; R65.21 - Severe sepsis with septic shock Status: Acute Assessment and Plan: resolving presumed secondary to bacteremia and pneumonia blood culture with Staph epidermis was on vasopressor therapy but weaned off follow trend of hemodynamics (3) Pulmonary embolism: Qualifiers: Acute cor pulmonale presence: unspecified Chronicity: acute Pulmonary embolism type: other Qualified Code(s): I26.99 - Other pulmonary embolism without acute cor pulmonale Code(s): I26.99 - Other pulmonary embolism without acute cor pulmonale Status: Acute Assessment and Plan: as documented by CTA of chest: subsegmental pulmonary emboli of the right lower lobe further CT chest findings noted: moderate size left and small right pleural effusions with associated passive atelectasis patchy airspace opacities of the mid and upper lung zones, consistent with pneumonia versus pulmonary edema. 14 mm right perihilar upper lobe nodule concerning for primary bronchogenic carcinoma. Follow-up CT in three months is recommended. mediastinal and bilateral hilar lymphadenopathy, reactive versus metastatic disease. on anticoagulation follow respiratory status (4) Pneumonia: Code(s): J18.9 - Pneumonia, unspecified organism Status: Acute Assessment and Plan: admission CXR and CT chest demonstrated this follow repeat cultures continue antibiotics as outlined (5) CHF (congestive heart failure): Qualifiers: Heart failure chronicity: chronic Heart failure type: systolic Qualified Code(s): I50.22 - Chronic systolic (congestive) heart failure Code(s): I50.9 - Heart failure, unspecified Status: Acute Assessment and Plan: known history of systolic heart failure with EF of 20% s/p AICD implantation in August 2023 Cardiology following the patient spironolactone, Entresto, furosemide on hold due to hypotension resumed on metoprolol resume other medications when able (6) Chronic obstructive pulmonary disease: Qualifiers: COPD type: unspecified COPD Qualified Code(s): J44.9 - Chronic obstructive pulmonary disease, unspecified Code(s): J44.9 - Chronic obstructive pulmonary disease, unspecified Status: Chronic Assessment and Plan: continue bronchodilator therapy supplemental oxygen complicated by PE, pneumonia, and volume overload on supplemental oxygen (7) Moderate sized pleural effusion: Code(s): J90 - Pleural effusion, not elsewhere classified Status: Acute Assessment and Plan: noted by admission imaging consider thoracentesis if unable to diuresis however, given need for anticoagulation, this might be difficult (8) Diabetes mellitus: Code(s): E11.9 - Type 2 diabetes mellitus without complications Status: Chronic Assessment and Plan: monitor accu-cheks glycemic control per hearing specialist and hospitalist Will continue to follow. Subjective Date/time seen: 10/22/23 10:45 Interva
--- NOTE | 2023-10-22 10:45 | P.PNNP_ITS ---
Progress Note: A&P Assessment and Plan (1) EVAN (acute kidney injury): Code(s): N17.9 - Acute kidney failure, unspecified Status: Acute Assessment and Plan: * slow improvement noted * suspect ATN with multifactorial etiology: * hemodynamic instability/hypotension * infection/sepsis (pneumonia + bacteremia) * medications (diuretics, entresto, anti-hypertensives...etc) * contrast exposure (CTA of chest on 10/14) * known cardiomyopathy * may have some underlying CKD given history of DM, cardiomyopathy, vascular di sease, and JOSE * evaluation to date: * normal renal ultrasound * urine eosinophils negative * urine electrolytes prerenal (but this maybe more related to her cardiomyopathy/depressed EF) * CPK mildly elevated (but not likely to affect kidney function) * follow trend of repeat labs and UOP (2) Septic shock: Code(s): A41.9 - Sepsis, unspecified organism; R65.21 - Severe sepsis with septic shock Status: Acute Assessment and Plan: * resolving * presumed secondary to bacteremia and pneumonia * blood culture with Staph epidermis * was on vasopressor therapy but weaned off * follow trend of hemodynamics (3) Pulmonary embolism: Qualifiers: Acute cor pulmonale presence: unspecified Chronicity: acute Pulmonary embolism type: other Qualified Code(s): I26.99 - Other pulmonary embolism without acute cor pulmonale Code(s): I26.99 - Other pulmonary embolism without acute cor pulmonale Status: Acute Assessment and Plan: * as documented by CTA of chest: * subsegmental pulmonary emboli of the right lower lobe * further CT chest findings noted: * moderate size left and small right pleural effusions with associated passive atelectasis * patchy airspace opacities of the mid and upper lung zones, consistent with pneumonia versus pulmonary edema. * 14 mm right perihilar upper lobe nodule concerning for primary bronchogenic carcinoma. Follow-up CT in three months is recommended. * mediastinal and bilateral hilar lymphadenopathy, reactive versus metastatic disease. * on anticoagulation * follow respiratory status (4) Pneumonia: Code(s): J18.9 - Pneumonia, unspecified organism Status: Acute Assessment and Plan: * admission CXR and CT chest demonstrated this * follow repeat cultures * continue antibiotics as outlined (5) CHF (congestive heart failure): Qualifiers: Heart failure chronicity: chronic Heart failure type: systolic Qualified Code(s): I50.22 - Chronic systolic (congestive) heart failure Code(s): I50.9 - Heart failure, unspecified Status: Acute Assessment and Plan: * known history of systolic heart failure with EF of 20% * s/p AICD implantation in August 2023 * Cardiology following the patient * spironolactone, Entresto, furosemide on hold due to hypotension * resumed on metoprolol * resume other medications when able (6) Chronic obstructive pulmonary disease: Qualifiers: COPD type: unspecified COPD Qualified Code(s): J44.9 - Chronic obstructive pulmonary disease, unspecified Code(s): J44.9 - Chronic obstructive pulmonary disease, unspecified Status: Chronic Assessment and Plan: * continue bronchodilator therapy * supplemental oxygen * complicated by PE, pneumonia, and volume overload * on supplemental oxygen (7) Moderate sized pleural effusion: Code(s): J90 - Pleural effusion, not elsewhere classified Status:
[2023-10-22 11:23] LABS: Glucose Point of Care 103 mg/dl (65-105)
--- NOTE | 2023-10-22 12:11 | PCNWS ---
Weekly nutritional screen. Patient is tolerating current diet with adequate intake. No weight loss reported. No nutritional needs at this time.
[2023-10-22 12:26] LABS: Basophils Absolute Auto 0.1 K/mm3 (0.0-0.1); Basophils Percent Auto 0.7 % (0.2-1.2); Eosinophils Absolute Auto 0.1 K/mm3 (0-0.3); Eosinophils Percent Auto 0.7 % (0-4.4); Hematocrit 36.2 % (37.0-47.0); Hemoglobin 10.1 g/dL (12.0-15.0); Immature Granulocyte Absolute 0.03 K/mm3 (0.00-0.031); Immature Granulocyte Percent A 0.3 % (0-0.5); Immature Platelet Fraction Pct 6.9 % (0.9-11.2); Lymphocytes Absolute Auto 0.89 K/mm3 (0.9-3.2); Lymphocytes Percent Auto 9.5 % (18.3-44.2); Mean Corpuscular HGB Conc 27.9 g/dl (32-36); Mean Corpuscular Volume 82.5 fl (80-100); Mean Platelet Volume 11.8 fl (7.4-10.4); Monocytes Absolute Auto 0.6 K/mm3 (0.1-0.6); Monocytes Percent Auto 5.8 % (2.6-8.5); Neutrophils Absolute Auto 7.8 K/mm3 (1.3-6.7); Platelet Count Result 140 k/mm3 (150-375); Red Blood Count 4.39 M/mm3 (4.2-5.4); Red Cell Distribution Width 17.8 % (11.5-14.5); White Blood Count 9.4 K/mm3 (4.5-10.0)
[2023-10-22 12:40] LABS: Alanine Aminotransferase 49 U/L (6-35); Alkaline Phosphatase 133 U/L (38-126); Anion Gap 9 mmol/L (8-16); Aspartate Amino Transferase 35 U/L (14-36); Bilirubin,Total 0.6 mg/dL (0.2-1.3); Blood Urea Nitrogen 32 mg/dL (7-17); Calcium 8.6 mg/dL (8.4-10.2); Carbon Dioxide 22 mmol/L (22-30); Chloride 113 mmol/L (98-107); Estimated CRCL calculation 48 ml/min; Estimated Glomerular Filt Rate 42; Glucose 179 mg/dL (65-110); Potassium 4.5 mmol/L (3.4-5.0); Sodium 144 mmol/L (137-145)
[2023-10-22 13:08] LABS: Hypochromasia 1+ (NORMAL); Platelet Estimate Adequate (Adequate); Schistocytes None Seen (NORMAL)
[2023-10-22] MEDS: VANCOMYCIN 1,250 MG/NS 250 ML BAG 166.67 MG IVPB (13:49)
[2023-10-22 14:10] LABS: Chloride Rand Ur 64 mmol/L (32-290); Chloride/Creatinine Rand Ur 33 (38-318); Creatinine Random Urine 196 mg/dL (20-275)
[2023-10-22 15:49] LABS: Ammonia < 9 umol/L (9-30)
--- NOTE | 2023-10-22 16:20 | PM.IMPN ---
Progress Note: A&P Assessment and Plan (1) Syncope: Qualifiers: Syncope type: vasovagal syncope Qualified Code(s): R55 - Syncope and collapse Code(s): R55 - Syncope and collapse Status: Acute Assessment and Plan: Had recent ICD implantation cardiology following (2) Pulmonary embolism: Qualifiers: Acute cor pulmonale presence: unspecified Chronicity: acute Pulmonary embolism type: other Qualified Code(s): I26.99 - Other pulmonary embolism without acute cor pulmonale Code(s): I26.99 - Other pulmonary embolism without acute cor pulmonale Status: Acute Assessment and Plan: Full anticoagulation (3) Acute on chronic systolic (congestive) heart failure: Code(s): I50.23 - Acute on chronic systolic (congestive) heart failure Status: Acute Assessment and Plan: Nodule recommendation appreciated --Resume spironolactone, metoprolol, Entresto, Jardiance overnight Daily intake and output (4) Coronary artery disease: Qualifiers: Coronary Disease-Associated Artery/Lesion type: [place] artery [place] vs. transplanted heart: unspecified whether [place] or transplanted heart Code(s): I25.10 - Atherosclerotic heart disease of [place] coronary artery without angina pectoris Status: Chronic Assessment and Plan: Continue antiplatelet therapy continue statin (5) Ischemic cardiomyopathy: Code(s): I25.5 - Ischemic cardiomyopathy Status: Acute Assessment and Plan: Continue with diuresis has recent ICD placed. (6) Septic shock: Code(s): A41.9 - Sepsis, unspecified organism; R65.21 - Severe sepsis with septic shock Status: Acute Assessment and Plan: Continue IV antibiotics probably related to pneumonia repeat blood culture negative Follow-up final culture result payable processor following Positive blood culture probably contaminant (7) CHF exacerbation: Code(s): I50.9 - Heart failure, unspecified Status: Acute Assessment and Plan: Acute and of chronic systolic CHF exacerbation of cardiology following diuresis was held due to patient being on pressors (8) Pneumonia: Code(s): J18.9 - Pneumonia, unspecified organism Status: Acute Assessment and Plan: Continue IV antibiotics (9) Moderate sized pleural effusion: Code(s): J90 - Pleural effusion, not elsewhere classified Status: Acute Assessment and Plan: Improved (10) Suspected sleep apnea: Code(s): R29.818 - Other symptoms and signs involving the nervous system Status: Chronic Assessment and Plan: Resume home treatment (11) COPD exacerbation: Code(s): J44.1 - Chronic obstructive pulmonary disease with (acute) exacerbation Status: Acute Assessment and Plan: Continue nebulizer treatment (12) Type 2 diabetes mellitus with hyperglycemia, with long-term current use of insulin: Code(s): E11.65 - Type 2 diabetes mellitus with hyperglycemia; Z79.4 - care home (current) use of insulin Status: Chronic Assessment and Plan: Continue current treatment insulin sliding scale (13) Lung mass: Code(s): R91.8 - Other nonspecific abnormal finding of lung field Status: Acute Assessment and Plan: Concern for lung mass follow-up with pulmonology as outpatient (14) Myoclonic jerking: Code(s): G25.3 - Myoclonus Status: Acute Assessment and Plan: 10/21/23: Neurology consulted 10/22/23: Per Neurology: - Obtain MRI brain: Cannot due to PPM - Reduce pregabalin dose to 50mg BID for now given renal disease - Check ammonia level (15) Asterixis: Code(s): R27.8 - Other lack of coordination Status: Acute Assessment and Plan: Per Neurology: - Obtain MRI brain: Cannot due to PPM - Reduce pregabalin dose to 50mg BID for now given renal disease - Check ammonia level Plan Anticipate discharge in 2-3 days
[2023-10-22 16:31] LABS: Glucose Point of Care 179 mg/dl (65-105)
[2023-10-22] MEDS: INSULIN ASPART (*BKC) 100 UNITS/ML SUB-Q (20:07)
[2023-10-22] MEDS: FUROSEMIDE INJ 40 MG/4 ML VIAL IV PUSH (20:07)
[2023-10-22] MEDS: PREGABALIN (*CRX) 50 MG CAPSULE PO (20:07)
[2023-10-22 20:46] LABS: Glucose Point of Care 261 mg/dl (65-105)
[2023-10-23] VITALS (10 sets, daily range): BP systolic 97–108; BP diastolic 50–67; PULSE 70–87; RESP 14–18; TEMP 36.1–36.4; O2SAT 92–99
[2023-10-23] MEDS: LEVOTHYROXINE SODIUM 50 MCG TABLET PO (05:16)
[2023-10-23] MEDS: CENTRAL LINE FLUSH 10 ML IV PUSH ×3 (05:16→21:13)
[2023-10-23 05:30] LABS: Basophils Absolute Auto 0.1 K/mm3 (0.0-0.1); Basophils Percent Auto 0.7 % (0.2-1.2); Eosinophils Absolute Auto 0.1 K/mm3 (0-0.3); Eosinophils Percent Auto 1.5 % (0-4.4); Hematocrit 34.7 % (37.0-47.0); Hemoglobin 9.9 g/dL (12.0-15.0); Immature Granulocyte Absolute 0.03 K/mm3 (0.00-0.031); Immature Granulocyte Percent A 0.4 % (0-0.5); Immature Platelet Fraction Pct 6.6 % (0.9-11.2); Lymphocytes Absolute Auto 1.06 K/mm3 (0.9-3.2); Lymphocytes Percent Auto 12.4 % (18.3-44.2); Mean Corpuscular HGB Conc 28.5 g/dl (32-36); Mean Corpuscular Hemoglobin 23.3 pg (26-34); Mean Corpuscular Volume 81.6 fl (80-100); Monocytes Absolute Auto 0.8 K/mm3 (0.1-0.6); Monocytes Percent Auto 8.8 % (2.6-8.5); Neutrophils Absolute Auto 6.5 K/mm3 (1.3-6.7); Neutrophils Percent Auto 76.2 % (45.5-73.1); Platelet Count Result 115 k/mm3 (150-375); Red Blood Count 4.25 M/mm3 (4.2-5.4); Red Cell Distribution Width 17.5 % (11.5-14.5); White Blood Count 8.5 K/mm3 (4.5-10.0)
[2023-10-23 05:38] LABS: Alanine Aminotransferase 39 U/L (6-35); Albumin Level 3.7 g/dL (3.5-5.1); Alkaline Phosphatase 117 U/L (38-126); Anion Gap 5 mmol/L (8-16); Aspartate Amino Transferase 26 U/L (14-36); Bilirubin,Total 0.7 mg/dL (0.2-1.3); Blood Urea Nitrogen 26 mg/dL (7-17); Calcium 8.7 mg/dL (8.4-10.2); Carbon Dioxide 27 mmol/L (22-30); Chloride 111 mmol/L (98-107); Estimated CRCL calculation 52 ml/min; Estimated Glomerular Filt Rate 46; Glucose 143 mg/dL (65-110); Potassium 4.3 mmol/L (3.4-5.0); Sodium 143 mmol/L (137-145)
[2023-10-23] MEDS: UMECLIDINIUM/VILANTEROL 62.5-25 MCG ELLIPTA 1 PUFF INHALATION (08:10)
[2023-10-23] MEDS: CLOPIDOGREL BISULFATE 75 MG TABLET PO (09:06)
[2023-10-23] MEDS: FUROSEMIDE INJ 40 MG/4 ML VIAL IV PUSH (09:06)
[2023-10-23] MEDS: METOPROLOL SUCCINATE EXT REL 12.5 MG TABCR PO (09:10)
[2023-10-23] MEDS: SPIRONOLACTONE 12.5 MG TABLET PO (09:10)
[2023-10-23] MEDS: MIDODRINE HCL 10 MG TABLET PO ×2 (09:10→17:09)
[2023-10-23] MEDS: AMIODARONE HCL 200 MG TABLET 400 MG PO (09:10)
--- NOTE | 2023-10-23 10:19 | P.PNNP_ITS ---
Progress Note: A&P Assessment and Plan (1) EVAN (acute kidney injury): Code(s): N17.9 - Acute kidney failure, unspecified Status: Acute Assessment and Plan: * slow improvement noted * suspect ATN with multifactorial etiology: * hemodynamic instability/hypotension * infection/sepsis (pneumonia + bacteremia) * medications (diuretics, entresto, anti-hypertensives...etc) * contrast exposure (CTA of chest on 10/14) * known cardiomyopathy * may have some underlying CKD given history of DM, cardiomyopathy, vascular disease, and JOSE * evaluation to date: * normal renal ultrasound * urine eosinophils negative * urine electrolytes prerenal (but this maybe more related to her cardiomyopathy/depressed EF) * CPK mildly elevated (but not likely to affect kidney function) * blood pressure is doing better. * Fluid status is improved. * She has received antibiotics. * She has gained some distance temporarily from the contrast. * It looks like she is improving. (2) Septic shock: Code(s): A41.9 - Sepsis, unspecified organism; R65.21 - Severe sepsis with septic shock Status: Acute Assessment and Plan: * resolving * presumed secondary to bacteremia and pneumonia * blood culture with Staph epidermis * Blood pressure is better. (3) Pulmonary embolism: Qualifiers: Acute cor pulmonale presence: unspecified Chronicity: acute Pulmonary embolism type: other Qualified Code(s): I26.99 - Other pulmonary embolism without acute cor pulmonale Code(s): I26.99 - Other pulmonary embolism without acute cor pulmonale Status: Acute Assessment and Plan: * as documented by CTA of chest: * subsegmental pulmonary emboli of the right lower lobe * further CT chest findings noted: * moderate size left and small right pleural effusions with associated passive atelectasis * patchy airspace opacities of the mid and upper lung zones, consistent with pneumonia versus pulmonary edema. * 14 mm right perihilar upper lobe nodule concerning for primary bronchogenic carcinoma. Follow-up CT in three months is recommended. * mediastinal and bilateral hilar lymphadenopathy, reactive versus metastatic disease. * on anticoagulation * follow respiratory status (4) Pneumonia: Code(s): J18.9 - Pneumonia, unspecified organism Status: Acute Assessment and Plan: * admission CXR and CT chest demonstrated this * follow repeat cultures * continue antibiotics as outlined (5) CHF (congestive heart failure): Qualifiers: Heart failure chronicity: chronic Heart failure type: systolic Qualified Code(s): I50.22 - Chronic systolic (congestive) heart failure Code(s): I50.9 - Heart failure, unspecified Status: Acute Assessment and Plan: * known history of systolic heart failure with EF of 20% * s/p AICD implantation in August 2023 * Cardiology following the patient * spironolactone, Entresto, furosemide on hold due to hypotension * resumed on metoprolol * resume other medications when able * Will let Cardiology fold the other medications back in. (6) Chronic obstructive pulmonary disease: Qualifiers: COPD type: unspecified COPD Qualified Code(s): J44.9 - Chronic obstructive pulmonary disease, unspecified Code(s): J44.9 - Chronic obstructive pulmonary disease, unspecified Status: Chronic Assessment and Plan: * continue bronchodilator therapy * supplemental oxygen * complicated by PE, pneumonia
--- NOTE | 2023-10-23 10:19 | PM.PNNEP ---
Progress Note: A&P Assessment and Plan (1) EVAN (acute kidney injury): Code(s): N17.9 - Acute kidney failure, unspecified Status: Acute Assessment and Plan: slow improvement noted suspect ATN with multifactorial etiology: hemodynamic instability/hypotension infection/sepsis (pneumonia + bacteremia) medications (diuretics, entresto, anti-hypertensives...etc) contrast exposure (CTA of chest on 10/14) known cardiomyopathy may have some underlying CKD given history of DM, cardiomyopathy, vascular disease, and JOSE evaluation to date: normal renal ultrasound urine eosinophils negative urine electrolytes prerenal (but this maybe more related to her cardiomyopathy/depressed EF) CPK mildly elevated (but not likely to affect kidney function) blood pressure is doing better. Fluid status is improved. She has received antibiotics. She has gained some distance temporarily from the contrast. It looks like she is improving. (2) Septic shock: Code(s): A41.9 - Sepsis, unspecified organism; R65.21 - Severe sepsis with septic shock Status: Acute Assessment and Plan: resolving presumed secondary to bacteremia and pneumonia blood culture with Staph epidermis Blood pressure is better. (3) Pulmonary embolism: Qualifiers: Acute cor pulmonale presence: unspecified Chronicity: acute Pulmonary embolism type: other Qualified Code(s): I26.99 - Other pulmonary embolism without acute cor pulmonale Code(s): I26.99 - Other pulmonary embolism without acute cor pulmonale Status: Acute Assessment and Plan: as documented by CTA of chest: subsegmental pulmonary emboli of the right lower lobe further CT chest findings noted: moderate size left and small right pleural effusions with associated passive atelectasis patchy airspace opacities of the mid and upper lung zones, consistent with pneumonia versus pulmonary edema. 14 mm right perihilar upper lobe nodule concerning for primary bronchogenic carcinoma. Follow-up CT in three months is recommended. mediastinal and bilateral hilar lymphadenopathy, reactive versus metastatic disease. on anticoagulation follow respiratory status (4) Pneumonia: Code(s): J18.9 - Pneumonia, unspecified organism Status: Acute Assessment and Plan: admission CXR and CT chest demonstrated this follow repeat cultures continue antibiotics as outlined (5) CHF (congestive heart failure): Qualifiers: Heart failure chronicity: chronic Heart failure type: systolic Qualified Code(s): I50.22 - Chronic systolic (congestive) heart failure Code(s): I50.9 - Heart failure, unspecified Status: Acute Assessment and Plan: known history of systolic heart failure with EF of 20% s/p AICD implantation in August 2023 Cardiology following the patient spironolactone, Entresto, furosemide on hold due to hypotension resumed on metoprolol resume other medications when able Will let Cardiology fold the other medications back in. (6) Chronic obstructive pulmonary disease: Qualifiers: COPD type: unspecified COPD Qualified Code(s): J44.9 - Chronic obstructive pulmonary disease, unspecified Code(s): J44.9 - Chronic obstructive pulmonary disease, unspecified Status: Chronic Assessment and Plan: continue bronchodilator therapy supplemental oxygen complicated by PE, pneumonia, and volume overload on supplemental oxygen (7) Moderate sized pleural effusion: Code(s): J90 - Pleural effusion, not elsewhere classified Status: Acute Assessment and Plan: noted by admission imaging consider thoracentesis if unable to diuresis however, given need for anticoagulation, this might be difficult (8) Diabetes mellitus: Code(s): E11.9 - Type 2 diabetes mellitus without complications Status: Chronic Assess
[2023-10-23 11:05] LABS: Glucose Point of Care 123 mg/dl (65-105)
--- NOTE | 2023-10-23 11:21 | PM.PNCARD ---
Progress Note: A&P Assessment and Plan (1) Acute on chronic systolic (congestive) heart failure: Code(s): I50.23 - Acute on chronic systolic (congestive) heart failure Status: Acute Assessment and Plan: Improved. In the setting of septic shock. Will switch IV Lasix to PO Lasix. Resume Entresto now as renal function and blood pressures have improved. Continue Spironolactone. Continue Toprol. Continue Jardiance. (2) Syncope: Qualifiers: Syncope type: vasovagal syncope Qualified Code(s): R55 - Syncope and collapse Code(s): R55 - Syncope and collapse Status: Acute Assessment and Plan: Her syncope is clearly related to coughing. This is tussive syncope and no further workup needed because of syncope. She has a recent ICD implantation also (3) Pulmonary embolism: Qualifiers: Acute cor pulmonale presence: unspecified Chronicity: acute Pulmonary embolism type: other Qualified Code(s): I26.99 - Other pulmonary embolism without acute cor pulmonale Code(s): I26.99 - Other pulmonary embolism without acute cor pulmonale Status: Acute Assessment and Plan: Per pulmonology (4) Coronary artery disease: Qualifiers: Coronary Disease-Associated Artery/Lesion type: [place] artery [place] vs. transplanted heart: unspecified whether [place] or transplanted heart Code(s): I25.10 - Atherosclerotic heart disease of [place] coronary artery without angina pectoris Status: Chronic Assessment and Plan: Continue anti-platelet and statin therapy Subjective Date/time seen: 10/23/23 11:21 Interval history: 58-year-old admitted for syncope, shortness breath, heart failure Date of service 10/17/2023: Still with significant edema. Still a bit short of breath. No chest pain. Blood pressure is low however. Date of service 10/18/2023: Seen in the ICU. Transferred yesterday due to hypotension and sepsis. Blood cultures were positive. She is somnolent but denies any chest pain. Date of service 10/19/2023: She feels woozy this morning. Complaining of nausea. Breathing is better. No chest pain Date of service 10/20/2023: Still feels cold and shivering. She denies any chest pain or shortness of breath. Date of service 10/21/2023: Feeling shaky. States her breathing is worse today. No chest pain. Date of service 10/22/2023: She feels better today, complains of weakness but her breathing has improved. Able to lay flat. Date of service 10/23/2023: Sleepy this morning, but otherwise feels okay. Exam Const: General: comfortable and no acute distress HENMT: Mouth: Yes moist mucous membranes Resp: Effort & Inspection: normal respiratory effort Cardio: Rate: regular rate Rhythm: regular rhythm Skin: General skin exam: normal color Neuro: Speech: normal speech Psych: Mental Status: mental status grossly normal Affect: normal affect Objective Data Vital Signs Vital Signs: Vital Signs - 24 hr 10/22/23 12:00 10/22/23 14:00 10/22/23 16:00 Temperature 36.1 C L Pulse Rate 82 89 72 Respiratory Rate 20 Blood Pressure 108/88 Pulse Oximetry 95 Oxygen Delivery Oxygen Flow Rate 10/22/23 21:23 10/22/23 20:10 10/22/23 20:10 Temperature 36.1 C L Pulse Rate 83 82 Respiratory Rate 14 Blood Pressure 132/68 Pulse Oximetry 92 92 Oxygen Delivery Nasal Cannula Oxygen Flow Rate 2 10/23/23 00:00 10/23/23 04:00 10/23/23 06:00 Temperature 36.1 C L Pulse Rate 76 77 87 Respiratory Rate 14 Blood Pressure 108/67 Pulse Oximetry 92 Oxygen Delivery Oxygen Flow Rate 10/23/23 09:10 10/23/23 09:10 10/23/23 09:10 Temperature Pulse Rate 75 75 Respiratory Rate Blood Pressure Pulse Oximetry Oxygen Delivery Room Air Oxygen Flow Rate Intake/Output Intake/Output: Intake & Output 10/20/23 10/21/23 10/22/23 10/23/23 23:59 23:59 23:59 23:59 Willian
[2023-10-23 11:25] LABS: Glucose Point of Care 128 mg/dl (65-105)
[2023-10-23] MEDS: APIXABAN 5 MG TABLET 10 MG PO ×2 (11:47→21:09)
[2023-10-23] MEDS: INSULIN ASPART (*BKC) 100 UNITS/ML 10 UNITS SUB-Q ×2 (11:48→17:08)
[2023-10-23] MEDS: INSULIN GLARGINE (*BKC) 100 UNITS/ML 8 UNITS SUB-Q (11:48)
--- NOTE | 2023-10-23 14:13 | PM.IMPN ---
Progress Note: A&P Assessment and Plan (1) [place]: Code(s): R27.8 - Other lack of coordination Status: Acute (2) EVAN (acute kidney injury): Code(s): N17.9 - Acute kidney failure, unspecified Status: Acute (3) Myoclonic jerking: Code(s): G25.3 - Myoclonus Status: Acute (4) Lung mass: Code(s): R91.8 - Other nonspecific abnormal finding of lung field Status: Acute (5) Acute on chronic systolic (congestive) heart failure: Code(s): I50.23 - Acute on chronic systolic (congestive) heart failure Status: Acute (6) Syncope: Qualifiers: Syncope type: vasovagal syncope Qualified Code(s): R55 - Syncope and collapse Code(s): R55 - Syncope and collapse Status: Acute (7) CHF exacerbation: Qualifiers: Heart failure type: systolic Qualified Code(s): I50.23 - Acute on chronic systolic (congestive) heart failure Code(s): I50.9 - Heart failure, unspecified Status: Acute Plan # acute pulmonary embolism -patient found to have subsegmental pulmonary embolism right lower lobe -she has been refusing Lovenox shots, starting Eliquis 10/22- # acute on chronic heart failure exacerbation -echo shows EF 20% -status post AICD placement August 2023 -appreciate cardiology recommendation: Resuming Entresto -patient now on Jardiance, Toprol, spironolactone, Entresto, p.o. Lasix 40 mg b.i.d. -on flag # acute kidney injury -creatinine improving. May been from exposure from contrast, sepsis -inpatient Nephrology consultation -normal renal ultrasound # septic shock, resolved -shock resolved, off levophed from 10/17 -secondary to pneumonia -PT and OT consult: SNF -blood cultures Staph epi likely contaminant, repeat cultures negative -continue midodrine 10 mg t.i.d., will consider titrating down tomorrow as we have resumed heart failure regimen # chronic conditions -moderate left pleural effusion: May need a thoracentesis in the future, patient appears to be stable -history of syncope status post AICD. She may have tussive syncope -COPD: incruse ellipta -peripheral neuropathy: Lyrica, Cymbalta -hypothyroidism: Synthroid -type 2 diabetes: Continue glargine 8 units daily, sliding scale insulin, Accu-Cheks a.c. HS, hypoglycemia protocol, A1c 8.0. On Jardiance -amiodarone Diet: Heart healthy diet DVT prophylaxis: starting eliquis Code status: Full code Disposition: Pending SNF placement Time Spent With Patient Time: 35 minutes Subjective Date/time seen: 10/23/23 14:13 Interval history: Patient seen and examined. She is doing well no new complaints. Cardiology resuming Lasix and Entresto.-patient still on midodrine, will likely need to wean after resuming heart failure regimen. patient has been refusing Lovenox shots, it is transitioning to Eliquis for anticoagulation with new PE. Disposition may be SNF. Patient denies fever, chills, nausea, vomiting diarrhea. Nurse states patient has been incontinent of urine. Review of Systems Review of Systems: 10 point ROS complete, negative other than what is specified in HPI. Exam Narrative: - GENERAL: Pleasant woman in no acute distress - EYES: EOMI. Anicteric. - HENT: Moist mucous membranes. - LUNGS: Clear to auscultation bilaterally, no wheezing, rhonchi, or rales. - CARDIOVASCULAR: Regular rate and rhythm. No murmur. No JVD. - ABDOMEN: Soft, non-tender and non-distended. No palpable masses. - EXTREMITIES: 1+ edema. Peripheral pulses 2+. Non-tender. Left foot amputation - NEUROLOGIC: No focal neurological deficits. CN II-XII grossly intact. - PSYCHIATRIC: Awake, Alert and oriented x 3. Appropriate mood and affect. - SKIN: No rashes or lesions. Warm. - LYMPH: No cervical lymphadenopathy. Objective Data Vital Signs Vital Signs: Vital Signs - 24 hr 10/22/23 16:00 10/22/23 21:23 10/22/23 20:10 Temperature 36.1 C L Pulse Rate 72 83 82 Respiratory Rate 14
[2023-10-23 17:08] LABS: Glucose Point of Care 146 mg/dl (65-105)
[2023-10-23] MEDS: FUROSEMIDE 40 MG TABLET PO (17:09)
[2023-10-23] MEDS: ALPRAZolam (*CRX) 0.5 MG TABLET PO (21:11)
[2023-10-23] MEDS: SACUBITRIL/VALSARTAN 24-26 MG TABLET 1 TAB PO (21:11)
[2023-10-23] MEDS: PREGABALIN (*CRX) 50 MG CAPSULE PO (21:11)
[2023-10-23] MEDS: HYDROcodone/acetaminophen (*CRX) 5-325 MG TABLET 1 TAB PO (21:11)
[2023-10-23 21:13] LABS: Glucose Point of Care 240 mg/dl (65-105)
[2023-10-24] VITALS (10 sets, daily range): BP systolic 80–105; BP diastolic 48–72; PULSE 61–80; RESP 16–18; TEMP 36.3–36.7; O2SAT 93–98
--- NOTE | 2023-10-24 01:54 | PC.NURSE ---
Daylight Savings Time For Daylight Savings Time Ending in the Fall - Clocks are moved back. For Daylight Savings Time Beginning in the Spring - Clocks are moved ahead. For [facility], the time of change occurs at 0200 hrs. Time is taken from the line server. This entry on the patient's chart recognizes the change in time reflected during documentation. Example: 2 entries for vital signs may be charted for 0200 hrs.
[2023-10-24] MEDS: TOLNAFTATE 1% POWDER 45 GM BTL 1 APPLIC TOPICAL ×3 (05:59→20:34)
[2023-10-24] MEDS: MICONAZOLE NITRATE 2% VAGINAL CREAM 45 GM TUBE 1 APPFUL VAGINAL ×2 (06:00→20:35)
[2023-10-24] MEDS: LEVOTHYROXINE SODIUM 50 MCG TABLET PO (06:00)
[2023-10-24] MEDS: CENTRAL LINE FLUSH 10 ML IV PUSH ×2 (06:01→14:29)
[2023-10-24 06:46] LABS: Basophils Absolute Auto 0.1 K/mm3 (0.0-0.1); Basophils Percent Auto 0.7 % (0.2-1.2); Eosinophils Absolute Auto 0.2 K/mm3 (0-0.3); Eosinophils Percent Auto 2.6 % (0-4.4); Hematocrit 37.3 % (37.0-47.0); Hemoglobin 10.8 g/dL (12.0-15.0); Immature Granulocyte Absolute 0.03 K/mm3 (0.00-0.031); Immature Granulocyte Percent A 0.4 % (0-0.5); Immature Platelet Fraction Pct 8.1 % (0.9-11.2); Lymphocytes Absolute Auto 1.49 K/mm3 (0.9-3.2); Lymphocytes Percent Auto 19.4 % (18.3-44.2); Mean Corpuscular Hemoglobin 23.4 pg (26-34); Mean Corpuscular Volume 80.7 fl (80-100); Mean Platelet Volume 11.9 fl (7.4-10.4); Monocytes Absolute Auto 0.7 K/mm3 (0.1-0.6); Monocytes Percent Auto 8.8 % (2.6-8.5); Neutrophils Absolute Auto 5.2 K/mm3 (1.3-6.7); Neutrophils Percent Auto 68.1 % (45.5-73.1); Platelet Count Result 107 k/mm3 (150-375); Red Blood Count 4.62 M/mm3 (4.2-5.4); Red Cell Distribution Width 17.5 % (11.5-14.5); White Blood Count 7.7 K/mm3 (4.5-10.0)
[2023-10-24 06:58] LABS: Alanine Aminotransferase 32 U/L (6-35); Albumin Level 3.8 g/dL (3.5-5.1); Alkaline Phosphatase 103 U/L (38-126); Anion Gap 4 mmol/L (8-16); Aspartate Amino Transferase 22 U/L (14-36); Bilirubin,Total 0.6 mg/dL (0.2-1.3); Blood Urea Nitrogen 21 mg/dL (7-17); Calcium 8.9 mg/dL (8.4-10.2); Carbon Dioxide 31 mmol/L (22-30); Chloride 107 mmol/L (98-107); Estimated CRCL calculation 56 ml/min; Estimated Glomerular Filt Rate 51; Glucose 101 mg/dL (65-110); Phosphorus 3.8 mg/dL (2.5-4.5); Potassium 3.9 mmol/L (3.4-5.0); Sodium 142 mmol/L (137-145)
[2023-10-24] MEDS: UMECLIDINIUM/VILANTEROL 62.5-25 MCG ELLIPTA 1 PUFF INHALATION (08:09)
[2023-10-24 08:14] LABS: Glucose Point of Care 84 mg/dl (65-105)
--- NOTE | 2023-10-24 08:26 | P.PNNP_ITS ---
Progress Note: A&P Assessment and Plan (1) EVAN (acute kidney injury): Code(s): N17.9 - Acute kidney failure, unspecified Status: Acute Assessment and Plan: * slow improvement noted * suspect ATN with multifactorial etiology: * hemodynamic instability/hypotension * infection/sepsis (pneumonia + bacteremia) * medications (diuretics, entresto, anti-hypertensives...etc) * contrast exposure (CTA of chest on 10/14) * known cardiomyopathy * patient has had some very mild underlying CKD (GFR ranging in the 50s and low 60s before all of this and has had intermittently positive urine protein over the years) probably from DM, cardiomyopathy, vascular disease, and JOSE * with this in mind will check serology and immunofixation while she is here. * evaluation to date: * normal renal ultrasound * urine eosinophils negative * urine electrolytes prerenal (but this maybe more related to her cardiomyopathy/depressed EF) * CPK mildly elevated (but not likely to affect kidney function) * Renal function is better from better blood pressure, fluids, antibiotics. (2) Septic shock: Code(s): A41.9 - Sepsis, unspecified organism; R65.21 - Severe sepsis with septic shock Status: Acute Assessment and Plan: * resolving * presumed secondary to bacteremia and pneumonia * blood culture with Staph epidermis * Blood pressure is better. (3) Pulmonary embolism: Qualifiers: Acute cor pulmonale presence: unspecified Chronicity: acute Pulmonary embolism type: other Qualified Code(s): I26.99 - Other pulmonary embolism without acute cor pulmonale Code(s): I26.99 - Other pulmonary embolism without acute cor pulmonale Status: Acute Assessment and Plan: * as documented by CTA of chest: * subsegmental pulmonary emboli of the right lower lobe * on anticoagulation (4) Pneumonia: Code(s): J18.9 - Pneumonia, unspecified organism Status: Acute Assessment and Plan: * admission CXR and CT chest demonstrated this * She received antibiotics (5) CHF (congestive heart failure): Qualifiers: Heart failure chronicity: chronic Heart failure type: systolic Qualified Code(s): I50.22 - Chronic systolic (congestive) heart failure Code(s): I50.9 - Heart failure, unspecified Status: Acute Assessment and Plan: * known history of systolic heart failure with EF of 20% * s/p AICD implantation in August 2023 * Cardiology following the patient * spironolactone, Entresto, furosemide on hold due to hypotension * resumed on metoprolol * resume other medications when able * Will let Cardiology fold the other medications back in. (6) Chronic obstructive pulmonary disease: Qualifiers: COPD type: unspecified COPD Qualified Code(s): J44.9 - Chronic obstructive pulmonary disease, unspecified Code(s): J44.9 - Chronic obstructive pulmonary disease, unspecified Status: Chronic Assessment and Plan: * continue bronchodilator therapy * supplemental oxygen * complicated by PE, pneumonia, and volume overload * on supplemental oxygen (7) Moderate sized pleural effusion: Code(s): J90 - Pleural effusion, not elsewhere classified Status: Acute Assessment and Plan: * noted by admission imaging * repeat chest x-ray to see where we are with this. (8) Diabetes mellitus: Code(s): E11.9 - Type 2 diabetes mellitus without complications Status: Chronic Assessment and Plan: * monitor
--- NOTE | 2023-10-24 08:26 | PM.PNNEP ---
Progress Note: A&P Assessment and Plan (1) EVAN (acute kidney injury): Code(s): N17.9 - Acute kidney failure, unspecified Status: Acute Assessment and Plan: slow improvement noted suspect ATN with multifactorial etiology: hemodynamic instability/hypotension infection/sepsis (pneumonia + bacteremia) medications (diuretics, entresto, anti-hypertensives...etc) contrast exposure (CTA of chest on 10/14) known cardiomyopathy patient has had some very mild underlying CKD (GFR ranging in the 50s and low 60s before all of this and has had intermittently positive urine protein over the years) probably from DM, cardiomyopathy, vascular disease, and JOSE with this in mind will check serology and immunofixation while she is here. evaluation to date: normal renal ultrasound urine eosinophils negative urine electrolytes prerenal (but this maybe more related to her cardiomyopathy/depressed EF) CPK mildly elevated (but not likely to affect kidney function) Renal function is better from better blood pressure, fluids, antibiotics. (2) Septic shock: Code(s): A41.9 - Sepsis, unspecified organism; R65.21 - Severe sepsis with septic shock Status: Acute Assessment and Plan: resolving presumed secondary to bacteremia and pneumonia blood culture with Staph epidermis Blood pressure is better. (3) Pulmonary embolism: Qualifiers: Acute cor pulmonale presence: unspecified Chronicity: acute Pulmonary embolism type: other Qualified Code(s): I26.99 - Other pulmonary embolism without acute cor pulmonale Code(s): I26.99 - Other pulmonary embolism without acute cor pulmonale Status: Acute Assessment and Plan: as documented by CTA of chest: subsegmental pulmonary emboli of the right lower lobe on anticoagulation (4) Pneumonia: Code(s): J18.9 - Pneumonia, unspecified organism Status: Acute Assessment and Plan: admission CXR and CT chest demonstrated this She received antibiotics (5) CHF (congestive heart failure): Qualifiers: Heart failure chronicity: chronic Heart failure type: systolic Qualified Code(s): I50.22 - Chronic systolic (congestive) heart failure Code(s): I50.9 - Heart failure, unspecified Status: Acute Assessment and Plan: known history of systolic heart failure with EF of 20% s/p AICD implantation in August 2023 Cardiology following the patient spironolactone, Entresto, furosemide on hold due to hypotension resumed on metoprolol resume other medications when able Will let Cardiology fold the other medications back in. (6) Chronic obstructive pulmonary disease: Qualifiers: COPD type: unspecified COPD Qualified Code(s): J44.9 - Chronic obstructive pulmonary disease, unspecified Code(s): J44.9 - Chronic obstructive pulmonary disease, unspecified Status: Chronic Assessment and Plan: continue bronchodilator therapy supplemental oxygen complicated by PE, pneumonia, and volume overload on supplemental oxygen (7) Moderate sized pleural effusion: Code(s): J90 - Pleural effusion, not elsewhere classified Status: Acute Assessment and Plan: noted by admission imaging repeat chest x-ray to see where we are with this. (8) Diabetes mellitus: Code(s): E11.9 - Type 2 diabetes mellitus without complications Status: Chronic Assessment and Plan: monitor accu-cheks glycemic control per program research specialist and hospitalist Subjective Date/time seen: 10/24/23 08:26 Interval history: slept better. She did not have room made and the TV was off overnight. Exam Narrative: General: WD/WN female in NAD Heart: normal S1 and S2; no rub or gallop Lungs: coarse and decreased at bases Abdomen: soft, nontender, nondistended, positive bowel sounds Extremities: 1+ edema; s/p right BKA; left [place] fo
[2023-10-24] MEDS: AMIODARONE HCL 200 MG TABLET 400 MG PO (09:11)
[2023-10-24] MEDS: SPIRONOLACTONE 12.5 MG TABLET PO (09:11)
[2023-10-24] MEDS: APIXABAN 5 MG TABLET 10 MG PO ×2 (09:11→20:34)
[2023-10-24] MEDS: FUROSEMIDE 40 MG TABLET PO ×2 (09:12→17:05)
[2023-10-24] MEDS: DULoxetine HCL 60 MG CAPSULE.DR PO (09:12)
[2023-10-24] MEDS: SACUBITRIL/VALSARTAN 24-26 MG TABLET 1 TAB PO (09:12)
[2023-10-24] MEDS: PREGABALIN (*CRX) 50 MG CAPSULE PO ×2 (09:12→20:34)
[2023-10-24] MEDS: EMPAGLIFLOZIN 25 MG TABLET PO (09:12)
[2023-10-24] MEDS: MIDODRINE HCL 10 MG TABLET PO (09:12)
[2023-10-24] MEDS: CLOPIDOGREL BISULFATE 75 MG TABLET PO (09:12)
[2023-10-24] MEDS: METOPROLOL SUCCINATE EXT REL 12.5 MG TABCR PO (09:12)
[2023-10-24 10:03] LABS: Complement C3 84 mg/dL (88-165)
--- NOTE | 2023-10-24 10:05 | PM.PNCARD ---
Progress Note: A&P Assessment and Plan (1) Acute on chronic systolic (congestive) heart failure: Code(s): I50.23 - Acute on chronic systolic (congestive) heart failure Status: Acute Assessment and Plan: Improved. In the setting of septic shock. Continue PO Lasix, Spironolactone, Jardiance. Entresto resumed 10/22. Patient has been on Midodrine 10mg TID. Recommend to wean off of Midodrine if possible. Will decrease dose of Entresto to 12/13mg and decrease dose of Toprol to 12.5mg daily (was getting 12.5mg BID) to see if this will allow us to wean down the Midodrine. I will decrease the Midodrine dose to 5mg TID to see how she tolerates that. Continue to wean off of Midodrine as tolerated. (2) Syncope: Qualifiers: Syncope type: vasovagal syncope Qualified Code(s): R55 - Syncope and collapse Code(s): R55 - Syncope and collapse Status: Acute Assessment and Plan: Her syncope is clearly related to coughing. This is tussive syncope and no further workup needed because of syncope. She has a recent ICD implantation also. Okay to discontinue telemetry. (3) Pulmonary embolism: Qualifiers: Acute cor pulmonale presence: unspecified Chronicity: acute Pulmonary embolism type: other Qualified Code(s): I26.99 - Other pulmonary embolism without acute cor pulmonale Code(s): I26.99 - Other pulmonary embolism without acute cor pulmonale Status: Acute Assessment and Plan: Per pulmonology. On Eliquis for anticoagulation. (4) Coronary artery disease: Qualifiers: Coronary Disease-Associated Artery/Lesion type: [place] artery [place] vs. transplanted heart: unspecified whether [place] or transplanted heart Code(s): I25.10 - Atherosclerotic heart disease of [place] coronary artery without angina pectoris Status: Chronic Assessment and Plan: Continue anti-platelet and statin therapy Plan Recommendations and plan discussed with Hospitalist. Subjective Date/time seen: 10/24/23 10:05 Interval history: 58-year-old admitted for syncope, shortness breath, heart failure Date of service 10/17/2023: Still with significant edema. Still a bit short of breath. No chest pain. Blood pressure is low however. Date of service 10/18/2023: Seen in the ICU. Transferred yesterday due to hypotension and sepsis. Blood cultures were positive. She is somnolent but denies any chest pain. Date of service 10/19/2023: She feels woozy this morning. Complaining of nausea. Breathing is better. No chest pain Date of service 10/20/2023: Still feels cold and shivering. She denies any chest pain or shortness of breath. Date of service 10/21/2023: Feeling shaky. States her breathing is worse today. No chest pain. Date of service 10/22/2023: She feels better today, complains of weakness but her breathing has improved. Able to lay flat. Date of service 10/23/2023: Sleepy this morning, but otherwise feels okay. Date of service 10/23: Didn't sleep well last night because she was having weird dreams. Otherwise, feels okay. No chest pain, shortness of breath, orthopnea. Review of Systems Review of Systems: All systems reviewed & are unremarkable except as noted in HPI and below (HPI) Exam Const: General: comfortable and no acute distress Resp: Effort & Inspection: normal respiratory effort Cardio: Rate: regular rate Rhythm: regular rhythm Skin: General skin exam: normal color Neuro: Speech: normal speech Psych: Mental Status: mental status grossly normal Affect: normal affect Objective Data Vital Signs Vital Signs: Vital Signs - 24 hr 10/23/23 09:10 10/23/23 09:10 10/23/23 09:10 Temperature Pulse Rate 75 75 Respiratory Rate Blood Pressure Pulse Oximetry Oxygen Delivery Room Air 10/23/23 12:17 10/23/23 14:00 10/23/23 16:00 Temperature 36.3 C L Pulse Rate 80 70 76 Respiratory Rate 18 Blood Pres
[2023-10-24 10:08] LABS: Erythrocyte Sedimentation Rate 15 mm/hr (0-20)
--- NOTE | 2023-10-24 11:55 | PC.NURSE ---
Attempted to get patient up 3 separate times this morning and to clean patient up. She is adamant that she wants left alone and wants to stay in bed. She does not want to get up at all and verbalized understanding that if she does not get up, she will continue to get weaker. Asked patient if she intends to be bedbound and the patient states that she feels unsafe getting up- whether it is with an assistive device or not. Instructed her to let us know if she changes her mind.
[2023-10-24 12:12] LABS: Glucose Point of Care 221 mg/dl (65-105)
[2023-10-24] MEDS: INSULIN GLARGINE (*BKC) 100 UNITS/ML 8 UNITS SUB-Q (12:25)
[2023-10-24] MEDS: INSULIN ASPART (*BKC) 100 UNITS/ML SUB-Q ×3 (12:25→20:35)
[2023-10-24] MEDS: INSULIN ASPART (*BKC) 100 UNITS/ML 10 UNITS SUB-Q ×2 (12:25→17:05)
[2023-10-24] MEDS: MIDODRINE HCL 2.5 MG TABLET 5 MG PO ×3 (12:32→17:05)
--- NOTE | 2023-10-24 15:26 | PM.IMPN ---
Progress Note: A&P Assessment and Plan (1) EVAN (acute kidney injury): Code(s): N17.9 - Acute kidney failure, unspecified Status: Acute (2) Acute on chronic systolic (congestive) heart failure: Code(s): I50.23 - Acute on chronic systolic (congestive) heart failure Status: Acute (3) Syncope: Qualifiers: Syncope type: vasovagal syncope Qualified Code(s): R55 - Syncope and collapse Code(s): R55 - Syncope and collapse Status: Acute (4) Pulmonary embolism: Qualifiers: Acute cor pulmonale presence: unspecified Chronicity: acute Pulmonary embolism type: other Qualified Code(s): I26.99 - Other pulmonary embolism without acute cor pulmonale Code(s): I26.99 - Other pulmonary embolism without acute cor pulmonale Status: Acute Plan # acute pulmonary embolism -patient found to have subsegmental pulmonary embolism right lower lobe -Eliquis 10/22- -on room air # acute on chronic heart failure exacerbation -echo shows EF 20% -status post AICD placement August 2023 -appreciate cardiology recommendation:?adjust heart failure regimen -patient now on Jardiance, Toprol 12.5mg BID to daily, spironolactone, Entresto to half dose 12/13mg , p.o. Lasix 40 mg b.i.d. # acute kidney injury -creatinine improving down to 1.10.? May been from exposure from contrast, sepsis -inpatient Nephrology consultation -normal renal ultrasound # septic shock, resolved -shock resolved, off levophed from 10/17 -secondary to pneumonia -PT and OT consult: SNF -blood cultures Staph epi likely contaminant, repeat cultures negative -weaning midodrine as tolerated 10 -> 5mg TID # chronic conditions -moderate left pleural effusion:? May need a thoracentesis in the future, patient appears to be stable -history of syncope status post AICD.? She may have tussive syncope -COPD: incruse ellipta -peripheral neuropathy:? LyricaLarrymbalta -hypothyroidism: Synthroid -type 2 diabetes:? Continue glargine 8 units daily, sliding scale insulin, Accu-Cheks a.c. HS, hypoglycemia protocol, A1c 8.0.? On Jardiance -amiodarone Diet:??Heart healthy diet DVT prophylaxis:?starting eliquis Code status:?Full code Disposition:? Pending SNF placement Time Spent With Patient Time: 35 minutes Subjective Date/time seen: 10/24/23 15:26 Interval history: Patient seen examined. She is doing well with no new complaints. Patient yesterday had resumed all her meds, after weaning midodrine from 10 mg to 5 mg, she had a low blood pressure of 80/50 this afternoon. We have down titrated Entresto and Toprol. Patient denies fever, chills, nausea, vomiting, diarrhea, chest pain, shortness of breath, lightheadedness, dizziness. Review of Systems Review of Systems: 10 point ROS complete, negative other than what is specified in HPI. Exam Narrative: - GENERAL:? Pleasant woman in no acute distress - EYES: EOMI. Anicteric. - HENT: Moist mucous membranes. - LUNGS: Clear to auscultation bilaterally, no wheezing, rhonchi, or rales. - CARDIOVASCULAR: Regular rate and rhythm. No murmur. No JVD. - ABDOMEN: Soft, non-tender and non-distended. No palpable masses. - EXTREMITIES: 1+ edema. Peripheral pulses 2+. Non-tender.? Left foot amputation - NEUROLOGIC: No focal neurological deficits. CN II-XII grossly intact. - PSYCHIATRIC: Awake, Alert and oriented x 3. Appropriate mood and affect. - SKIN: No rashes or lesions. Warm. - LYMPH: No cervical lymphadenopathy. Objective Data Vital Signs Vital Signs: Vital Signs - 24 hr 10/23/23 16:00 10/23/23 22:00 10/23/23 20:20 Temperature 36.4 C L Pulse Rate 76 81 80 Respiratory Rate 18 Blood Pressure 97/61 L Pulse Oximetry 99 Oxygen Delivery Oxygen Flow Rate 10/24/23 00:00 10/24/23 04:00 10/24/23 06:00 Temperature 36.3 C L Pulse Rate 61 65 64 Respiratory Rate 16 Blood Pressure 102/60 Pulse Oximetry 98 Oxygen Delivery Oxygen Flow Rate 0
--- NOTE | 2023-10-24 15:50 | PCOTNOTE ---
Attempted to see pt for Occupational Therapy treatment. Pt is refusing to participate in therapy session stating several time I don't care when educated on importance of participation in therapy for independence with daily occupations in order to return home. Pt becomes upset and crying when telling therapist that she does not care about living anymore since her family does not care about her or has a purpose in life. Pt is offered to speak with staff and/or [place] however pt declined. RN is made aware of pt's emotional state and refusal of therapy service.
[2023-10-24 16:32] LABS: Glucose Point of Care 211 mg/dl (65-105)
[2023-10-24] MEDS: SACUBITRIL/VALSARTAN 12-13 MG TABLET 1 TAB PO (20:34)
[2023-10-24 21:29] LABS: Glucose Point of Care 244 mg/dl (65-105)
[2023-10-25] VITALS (8 sets, daily range): BP systolic 100–109; BP diastolic 53–62; PULSE 69–87; RESP 16–20; TEMP 36.3–36.6; O2SAT 92–96
[2023-10-25] MEDS: LEVOTHYROXINE SODIUM 50 MCG TABLET PO (05:37)
[2023-10-25 05:39] LABS: Basophils Absolute Auto 0.1 K/mm3 (0.0-0.1); Basophils Percent Auto 0.5 % (0.2-1.2); Eosinophils Absolute Auto 0.2 K/mm3 (0-0.3); Eosinophils Percent Auto 2.3 % (0-4.4); Hematocrit 35.4 % (37.0-47.0); Hemoglobin 10.3 g/dL (12.0-15.0); Immature Granulocyte Absolute 0.02 K/mm3 (0.00-0.031); Immature Granulocyte Percent A 0.2 % (0-0.5); Lymphocytes Absolute Auto 1.83 K/mm3 (0.9-3.2); Lymphocytes Percent Auto 19.8 % (18.3-44.2); Mean Corpuscular HGB Conc 29.1 g/dl (32-36); Mean Corpuscular Hemoglobin 23.1 pg (26-34); Mean Corpuscular Volume 79.4 fl (80-100); Mean Platelet Volume 11.5 fl (7.4-10.4); Monocytes Absolute Auto 0.7 K/mm3 (0.1-0.6); Monocytes Percent Auto 7.8 % (2.6-8.5); Neutrophils Absolute Auto 6.4 K/mm3 (1.3-6.7); Neutrophils Percent Auto 69.4 % (45.5-73.1); Platelet Count Result 163 k/mm3 (150-375); Red Blood Count 4.46 M/mm3 (4.2-5.4); Red Cell Distribution Width 17.5 % (11.5-14.5); White Blood Count 9.2 K/mm3 (4.5-10.0)
[2023-10-25 05:51] LABS: Alanine Aminotransferase 24 U/L (6-35); Albumin Level 3.3 g/dL (3.5-5.1); Alkaline Phosphatase 89 U/L (38-126); Anion Gap 3 mmol/L (8-16); Aspartate Amino Transferase 22 U/L (14-36); Bilirubin,Total 0.6 mg/dL (0.2-1.3); Blood Urea Nitrogen 17 mg/dL (7-17); Calcium 8.5 mg/dL (8.4-10.2); Carbon Dioxide 33 mmol/L (22-30); Chloride 105 mmol/L (98-107); Estimated CRCL calculation 62 ml/min; Estimated Glomerular Filt Rate 57; Glucose 112 mg/dL (65-110); Phosphorus 4.4 mg/dL (2.5-4.5); Potassium 3.5 mmol/L (3.4-5.0); Sodium 141 mmol/L (137-145)
[2023-10-25 07:12] LABS: Anisocytosis 1+ (NORMAL); Hypochromasia 1+ (NORMAL); Platelet Estimate Adequate (Adequate); Schistocytes Rare (NORMAL)
[2023-10-25] MEDS: UMECLIDINIUM/VILANTEROL 62.5-25 MCG ELLIPTA 1 PUFF INHALATION (07:37)
[2023-10-25 07:43] LABS: Glucose Point of Care 111 mg/dl (65-105)
--- NOTE | 2023-10-25 08:18 | PM.PNCARD ---
Progress Note: A&P Assessment and Plan (1) Acute on chronic systolic (congestive) heart failure: Code(s): I50.23 - Acute on chronic systolic (congestive) heart failure Status: Acute Assessment and Plan: Improved. In the setting of septic shock. Continue PO Lasix, Spironolactone, Jardiance. Entresto resumed 10/22. Patient has been on Midodrine 10mg TID. Recommend to wean off of Midodrine if possible. Will decrease dose of Entresto to 12/13mg and decrease dose of Toprol to 12.5mg daily (was getting 12.5mg BID) to see if this will allow us to wean down the Midodrine. Tolerating decrease in Midodrine dose to 5mg TID. Continue to wean off of Midodrine as tolerated. Cardiology will sign off at this point. Please call with questions. (2) Syncope: Qualifiers: Syncope type: vasovagal syncope Qualified Code(s): R55 - Syncope and collapse Code(s): R55 - Syncope and collapse Status: Acute Assessment and Plan: Her syncope is clearly related to coughing. This is tussive syncope and no further workup needed because of syncope. She has a recent ICD implantation also. Okay to discontinue telemetry. (3) Pulmonary embolism: Qualifiers: Acute cor pulmonale presence: unspecified Chronicity: acute Pulmonary embolism type: other Qualified Code(s): I26.99 - Other pulmonary embolism without acute cor pulmonale Code(s): I26.99 - Other pulmonary embolism without acute cor pulmonale Status: Acute Assessment and Plan: Per pulmonology. On Eliquis for anticoagulation. (4) Coronary artery disease: Qualifiers: Coronary Disease-Associated Artery/Lesion type: [place] artery [place] vs. transplanted heart: unspecified whether [place] or transplanted heart Code(s): I25.10 - Atherosclerotic heart disease of [place] coronary artery without angina pectoris Status: Chronic Assessment and Plan: Continue anti-platelet and statin therapy Plan Recommendations and plan discussed with Hospitalist. Subjective Date/time seen: 10/25/23 08:18 Interval history: 58-year-old admitted for syncope, shortness breath, heart failure Date of service 10/17/2023: Still with significant edema. Still a bit short of breath. No chest pain. Blood pressure is low however. Date of service 10/18/2023: Seen in the ICU. Transferred yesterday due to hypotension and sepsis. Blood cultures were positive. She is somnolent but denies any chest pain. Date of service 10/19/2023: She feels woozy this morning. Complaining of nausea. Breathing is better. No chest pain Date of service 10/20/2023: Still feels cold and shivering. She denies any chest pain or shortness of breath. Date of service 10/21/2023: Feeling shaky. States her breathing is worse today. No chest pain. Date of service 10/22/2023: She feels better today, complains of weakness but her breathing has improved. Able to lay flat. Date of service 10/23/2023: Sleepy this morning, but otherwise feels okay. Date of service 10/23: Didn't sleep well last night because she was having weird dreams. Otherwise, feels okay. No chest pain, shortness of breath, orthopnea. Date of service 10/25/2023: Feels weak. Complains of not sleeping well last night. No shortness of breath, orthopnea. Review of Systems Review of Systems: All systems reviewed & are unremarkable except as noted in HPI and below (HPI) Constitutional: Constitutional: Denies body ache(s) and Denies excessive sweating Eyes: Eyes: Denies blurry vision ENT: Reports Normal hearing present Cardiovascular: Cardiovascular: Denies chest pain, Reports pedal edema, Reports leg edema and Reports dyspnea Respiratory: Respiratory: Reports dyspnea Gastrointestinal: Gastrointestinal: Denies abdominal pain Genitourinary: Genitourinary: Denies hematuria Musculoskeletal: Musculoskeletal: Denies back pain Integumentary/Breasts: Skin/Breast:
[2023-10-25] MEDS: EMPAGLIFLOZIN 25 MG TABLET PO (08:25)
[2023-10-25] MEDS: FUROSEMIDE 40 MG TABLET PO ×2 (08:25→16:30)
[2023-10-25] MEDS: CLOPIDOGREL BISULFATE 75 MG TABLET PO (08:25)
[2023-10-25] MEDS: DULoxetine HCL 60 MG CAPSULE.DR PO (08:25)
[2023-10-25] MEDS: MIDODRINE HCL 2.5 MG TABLET 5 MG PO ×3 (08:25→16:30)
[2023-10-25] MEDS: PREGABALIN (*CRX) 50 MG CAPSULE PO ×2 (08:25→20:23)
[2023-10-25] MEDS: APIXABAN 5 MG TABLET 10 MG PO ×2 (08:25→20:23)
[2023-10-25] MEDS: SPIRONOLACTONE 12.5 MG TABLET PO (08:25)
[2023-10-25] MEDS: AMIODARONE HCL 200 MG TABLET 400 MG PO (08:25)
[2023-10-25] MEDS: SACUBITRIL/VALSARTAN 12-13 MG TABLET 1 TAB PO ×2 (08:25→20:22)
[2023-10-25] MEDS: METOPROLOL SUCCINATE EXT REL 12.5 MG TABCR PO (08:26)
[2023-10-25] MEDS: TOLNAFTATE 1% POWDER 45 GM BTL 1 APPLIC TOPICAL ×2 (08:26→20:26)
[2023-10-25] MEDS: CENTRAL LINE FLUSH 10 ML IV PUSH ×4 (08:26→20:29)
[2023-10-25 11:28] LABS: Glucose Point of Care 108 mg/dl (65-105)
--- NOTE | 2023-10-25 13:59 | PM.IMPN ---
Progress Note: A&P Assessment and Plan (1) EVAN (acute kidney injury): Code(s): N17.9 - Acute kidney failure, unspecified Status: Acute (2) Acute on chronic systolic (congestive) heart failure: Code(s): I50.23 - Acute on chronic systolic (congestive) heart failure Status: Acute (3) Syncope: Qualifiers: Syncope type: vasovagal syncope Qualified Code(s): R55 - Syncope and collapse Code(s): R55 - Syncope and collapse Status: Acute (4) Pulmonary embolism: Qualifiers: Acute cor pulmonale presence: unspecified Chronicity: acute Pulmonary embolism type: other Qualified Code(s): I26.99 - Other pulmonary embolism without acute cor pulmonale Code(s): I26.99 - Other pulmonary embolism without acute cor pulmonale Status: Acute Plan # acute pulmonary embolism -patient found to have subsegmental pulmonary embolism right lower lobe -Eliquis 10/22- -on room air # acute on chronic heart failure exacerbation, resolved -echo shows EF 20% -status post AICD placement August 2023 -appreciate cardiology recommendation:?adjust heart failure regimen -plan for chronic management: Jardiance, Toprol 12.5mg BID to daily, spironolactone, Entresto to half dose 12/13mg , p.o. Lasix 40 mg b.i.d. # acute kidney injury, resolved -creatinine improving down to 1.00.? May been from exposure from contrast, sepsis -inpatient Nephrology consultation -normal renal ultrasound # septic shock, resolved -shock resolved, off levophed from 10/17 -secondary to pneumonia -PT and OT consult: SNF -blood cultures Staph epi likely contaminant, repeat cultures negative -midodrine 5mg TID, will try to discontinue midodrine tomorrow # chronic conditions -moderate left pleural effusion:? May need a thoracentesis in the future, patient appears to be stable -history of syncope status post AICD.? She may have tussive syncope -COPD: incruse ellipta -peripheral neuropathy:? Lyrica, Cymbalta -hypothyroidism: Synthroid -type 2 diabetes:? Continue glargine 8 units daily, sliding scale insulin, Accu-Cheks a.c. HS, hypoglycemia protocol, A1c 8.0.? On Jardiance -amiodarone Diet:??Heart healthy diet DVT prophylaxis:?starting eliquis Code status:?Full code Disposition:? Pending SNF placement Subjective Date/time seen: 10/25/23 13:59 Interval history: Patient seen and examined. She is in no new complaints. We are awaiting assisted facility placement. Continue midodrine today, will try discontinuing tomorrow. Continue heart failure regimen. She denies fever, chills, nausea vomiting, diarrhea, chest pain, dyspnea. Review of Systems Review of Systems: 10 point ROS complete, negative other than what is specified in HPI. Exam Narrative: - GENERAL:? Pleasant woman in no acute distress - EYES: EOMI. Anicteric. - HENT: Moist mucous membranes. - LUNGS: Clear to auscultation bilaterally, no wheezing, rhonchi, or rales. - CARDIOVASCULAR: Regular rate and rhythm. No murmur. No JVD. - ABDOMEN: Soft, non-tender and non-distended. No palpable masses. - EXTREMITIES: 1+ edema RLE. Peripheral pulses 2+. Non-tender.? Left foot amputation - NEUROLOGIC: No focal neurological deficits. CN II-XII grossly intact. - PSYCHIATRIC: Awake, Alert and oriented x 3. Appropriate mood and affect. - SKIN: No rashes or lesions. Warm. - LYMPH: No cervical lymphadenopathy. Objective Data Vital Signs Vital Signs: Vital Signs - 24 hr 10/24/23 14:23 10/24/23 14:00 10/24/23 15:45 Temperature 36.7 C Pulse Rate 75 Respiratory Rate 18 Blood Pressure 80/50 L 80/50 L 97/48 L Pulse Oximetry 96 Oxygen Delivery 10/24/23 22:00 10/25/23 06:00 10/25/23 07:37 Temperature 36.6 C 36.3 C L Pulse Rate 80 72 69 Respiratory Rate 18 16 20 Blood Pressure 105/72 101/62 Pulse Oximetry 96 96 Oxygen Delivery 10/25/23 08:07 10/25/23 08:20 10/25/23 08:25 Temperature Pulse Rate 87 87 Respiratory Rate
[2023-10-25] MEDS: INSULIN ASPART (*BKC) 100 UNITS/ML 10 UNITS SUB-Q (16:30)
[2023-10-25] MEDS: INSULIN ASPART (*BKC) 100 UNITS/ML SUB-Q ×2 (16:31→20:23)
[2023-10-25 16:33] LABS: Glucose Point of Care 240 mg/dl (65-105)
[2023-10-25] MEDS: MICONAZOLE NITRATE 2% VAGINAL CREAM 45 GM TUBE 1 APPFUL VAGINAL (20:29)
[2023-10-25 20:31] LABS: Glucose Point of Care 266 mg/dl (65-105)
[2023-10-26 05:11] LABS: Basophils Absolute Auto 0.1 K/mm3 (0.0-0.1); Eosinophils Absolute Auto 0.2 K/mm3 (0-0.3); Eosinophils Percent Auto 2.8 % (0-4.4); Hemoglobin 10.5 g/dL (12.0-15.0); Immature Granulocyte Absolute 0.02 K/mm3 (0.00-0.031); Immature Granulocyte Percent A 0.2 % (0-0.5); Lymphocytes Absolute Auto 1.91 K/mm3 (0.9-3.2); Lymphocytes Percent Auto 23.5 % (18.3-44.2); Mean Corpuscular HGB Conc 29.2 g/dl (32-36); Mean Corpuscular Hemoglobin 22.8 pg (26-34); Mean Corpuscular Volume 78.1 fl (80-100); Mean Platelet Volume 10.6 fl (7.4-10.4); Monocytes Absolute Auto 0.7 K/mm3 (0.1-0.6); Neutrophils Absolute Auto 5.2 K/mm3 (1.3-6.7); Neutrophils Percent Auto 63.5 % (45.5-73.1); Platelet Count Result 158 k/mm3 (150-375); Red Blood Count 4.61 M/mm3 (4.2-5.4); Red Cell Distribution Width 17.5 % (11.5-14.5); White Blood Count 8.1 K/mm3 (4.5-10.0)
[2023-10-26] MEDS: LEVOTHYROXINE SODIUM 50 MCG TABLET PO (05:22)
[2023-10-26] MEDS: CENTRAL LINE FLUSH 10 ML IV PUSH ×3 (05:22→21:03)
[2023-10-26 05:33] LABS: Alanine Aminotransferase 21 U/L (6-35); Albumin Level 3.5 g/dL (3.5-5.1); Alkaline Phosphatase 86 U/L (38-126); Anion Gap 5 mmol/L (8-16); Aspartate Amino Transferase 21 U/L (14-36); Bilirubin,Total 0.6 mg/dL (0.2-1.3); Blood Urea Nitrogen 15 mg/dL (7-17); Calcium 8.7 mg/dL (8.4-10.2); Carbon Dioxide 35 mmol/L (22-30); Chloride 99 mmol/L (98-107); Estimated CRCL calculation 56 ml/min; Estimated Glomerular Filt Rate 51; Glucose 128 mg/dL (65-110); Potassium 3.3 mmol/L (3.4-5.0); Sodium 139 mmol/L (137-145)
[2023-10-26 06:00] VITALS: BP 93/44; PULSE 85; RESP 18; TEMP 36.2; O2SAT 95
[2023-10-26 06:21] LABS: Ovalocytes 1+ (NORMAL); Platelet Estimate Adequate (Adequate)
[2023-10-26 06:22] LABS: Anisocytosis 1+ (NORMAL); Hypochromasia 1+ (NORMAL); Schistocytes None Seen (NORMAL)
[2023-10-26 08:01] LABS: Glucose Point of Care 107 mg/dl (65-105)
[2023-10-26] MEDS: APIXABAN 5 MG TABLET 10 MG PO ×2 (08:55→20:12)
[2023-10-26] MEDS: DULoxetine HCL 60 MG CAPSULE.DR PO (08:55)
[2023-10-26] MEDS: MIDODRINE HCL 2.5 MG TABLET 5 MG PO ×3 (08:55→17:31)
[2023-10-26] MEDS: EMPAGLIFLOZIN 25 MG TABLET PO (08:55)
[2023-10-26 08:56] VITALS: PULSE 80
[2023-10-26] MEDS: SPIRONOLACTONE 12.5 MG TABLET PO (08:56)
[2023-10-26] MEDS: FUROSEMIDE 40 MG TABLET PO ×2 (08:56→17:31)
[2023-10-26] MEDS: PREGABALIN (*CRX) 50 MG CAPSULE PO ×2 (08:56→20:12)
[2023-10-26] MEDS: METOPROLOL SUCCINATE EXT REL 12.5 MG TABCR PO (08:56)
[2023-10-26] MEDS: AMIODARONE HCL 200 MG TABLET 400 MG PO (08:56)
[2023-10-26] MEDS: CLOPIDOGREL BISULFATE 75 MG TABLET PO (08:56)
[2023-10-26] MEDS: TOLNAFTATE 1% POWDER 45 GM BTL 1 APPLIC TOPICAL ×2 (08:58→20:12)
[2023-10-26] MEDS: SACUBITRIL/VALSARTAN 12-13 MG TABLET 1 TAB PO (09:00)
[2023-10-26 11:27] LABS: Glucose Point of Care 104 mg/dl (65-105)
[2023-10-26 14:00] VITALS: BP 102/51; PULSE 79; RESP 18; TEMP 36.6; O2SAT 92
--- NOTE | 2023-10-26 14:57 | PM.PNNEP ---
Progress Note: A&P Assessment and Plan (1) EVAN (acute kidney injury): Code(s): N17.9 - Acute kidney failure, unspecified Status: Acute Assessment and Plan: Renal function is doing much better. Creatinine is down to 1.1 2 days in a row. suspect ATN with multifactorial etiology: hemodynamic instability/hypotension infection/sepsis (pneumonia + bacteremia) medications (diuretics, entresto, anti-hypertensives...etc) contrast exposure (CTA of chest on 10/14) known cardiomyopathy patient has had some very mild underlying CKD (GFR ranging in the 50s and low 60s Things look like they are at her baseline. Nephrology will sign off (2) Diabetes mellitus: Code(s): E11.9 - Type 2 diabetes mellitus without complications Status: Chronic Assessment and Plan: monitor accu-cheks glycemic control per equipment operat0r and hospitalist Subjective Date/time seen: 10/26/23 14:57 Interval history: Patient is feeling good. No chest pain or shortness Exam Narrative: General: WD/WN female in NAD Heart: normal S1 and S2; no rub or gallop Lungs: coarse and decreased at bases Abdomen: soft, nontender, nondistended, positive bowel sounds Extremities: 1+ edema; s/p right BKA; left Charcot foot Skin: No acute rash Objective Data Vital Signs Vital Signs: Vital Signs - 24 hr 10/25/23 21:10 10/25/23 20:00 10/26/23 06:00 Temperature 98 F 97.1 F L Pulse Rate 77 85 Respiratory Rate 18 18 Blood Pressure 109/56 L 93/44 L Pulse Oximetry 94 95 Oxygen Delivery Room Air 10/26/23 08:56 10/26/23 08:56 10/26/23 08:00 Temperature Pulse Rate 80 80 Respiratory Rate Blood Pressure Pulse Oximetry Oxygen Delivery Room Air 10/26/23 14:00 Temperature 97.8 F Pulse Rate 79 Respiratory Rate 18 Blood Pressure 102/51 L Pulse Oximetry 92 Oxygen Delivery Intake/Output Intake/Output: Intake & Output 10/23/23 10/24/23 10/25/23 10/26/23 22:59 23:59 23:59 23:59 Intake Total 480 120 Output Total 1150 Balance -670 120 Meds/Results Medications: Active Medications Generic Name Dose Route Start Last Admin Trade Name Freq PRN Reason Stop Dose Admin Hydrocodone Bitart/Acetaminophen 1 tab 10/17/23 18:06 10/23/23 21:11 Hydrocodone/Acetaminophen (*Crx) 5-325 Mg Tablet PO 1 tab Q6H PRN Administration Pain Rated 4-6 Al Hydrox/Mg Hydrox/Simethicone 30 ml 10/16/23 11:25 Mag Hydrox/Al Hydrox/Simeth 30 Ml Udc PO QID PRN Dyspepsia Amiodarone HCl 400 mg 10/16/23 09:00 10/26/23 08:56 Amiodarone Hcl 200 Mg Tablet PO 400 mg DAILY LIBBY Administration Apixaban 10 mg 10/23/23 11:00 10/26/23 08:55 Apixaban 5 Mg Tablet PO 10/29/23 21:01 10 mg Q12HR LIBBY Administration Apixaban 5 mg 10/30/23 09:00 Apixaban 5 Mg Tablet PO Q12HR LIBBY Clopidogrel Bisulfate 75 mg 10/16/23 09:00 10/26/23 08:56 Clopidogrel Bisulfate 75 Mg Tablet PO 75 mg QAM LIBBY Administration Cyclobenzaprine HCl 10 mg 10/16/23 01:13 Cyclobenzaprine Hcl 10 Mg Tablet PO TID PRN muscle spasms Dextrose 12.5 gm 10/16/23 01:16 10/16/23 22:08 Dextrose 50% 25 Gm/50 Ml Syringe IV PUSH 12.5 gm PRN PRN Administration Hypoglycemia Protocol Duloxetine HCl 60 mg 10/16/23 09:00 10/26/23 08:55 Duloxetine Hcl 60 Mg Capsule.Dr PO 60 mg DAILY LIBBY Administration Empagliflozin 25 mg 10/18/23 09:00 10/26/23 08:55 Empagliflozin 25 Mg Tablet PO 25 mg DAILY LIBBY Administration Furosemide 40 mg 10/23/23 17:00 10/26/23 08:56 Furosemide 40 Mg Tablet PO 40 mg BID LIBBY Administration Glucagon 1 mg 10/16/23 01:16 Glucagon For Inj 1 Mg Vial IM PRN PRN Hypoglycemia Protocol Glucose 15 gm 10/16/23 01:16 Glucose Oral Gel 15 Gm Of Glucse In 37.5 Gm Tube PO PRN PRN Hypoglycemia Protocol Dextrose 1,000 mls @ 100 mls/hr 10/16/23 01:16 Dextr
[2023-10-26 16:12] LABS: Glucose Point of Care 206 mg/dl (65-105)
[2023-10-26] MEDS: INSULIN ASPART (*BKC) 100 UNITS/ML 10 UNITS SUB-Q (17:30)
[2023-10-26] MEDS: INSULIN ASPART (*BKC) 100 UNITS/ML SUB-Q ×2 (17:31→21:13)
--- NOTE | 2023-10-26 17:43 | PM.IMPN ---
Progress Note: A&P Assessment and Plan (1) Hypotension: Code(s): I95.9 - Hypotension, unspecified Status: Acute Plan The patient has been started on aggressive guideline directed medical therapy for heart failure as well as midodrine. Blood pressure continues to be low. With her very low EF will have to back off on these medications. Discontinue midodrine along with spironolactone Lasix and Entresto. Monitor blood pressure. Discussed this with Cardiology. Full code. Discharge to therapy when ready. Tash for DVT prophylaxis Subjective Date/time seen: 10/26/23 17:43 Interval history: No acute overnight events. The patient's blood pressure running low. She has no complaints otherwise. Review of Systems Review of Systems: All systems reviewed & are unremarkable except as noted in HPI and below (Subjective) Exam Const: General: comfortable and no acute distress Other: A&O x3 Eyes: Pupils: Equal, round and reactive pupils present Neck: Neck: supple Resp: Effort & Inspection: normal respiratory effort Auscultation: clear to auscultation bilaterally Cardio: Rate: regular rate Rhythm: regular rhythm GI: GI Palp: Yes Soft to palpation Extrem: General: no edema Objective Data Vital Signs Vital Signs: Vital Signs - 24 hr 10/25/23 21:10 10/25/23 20:00 10/26/23 06:00 Temperature 98 F 97.1 F L Pulse Rate 77 85 Respiratory Rate 18 18 Blood Pressure 109/56 L 93/44 L Pulse Oximetry 94 95 Oxygen Delivery Room Air 10/26/23 08:56 10/26/23 08:56 10/26/23 08:00 Temperature Pulse Rate 80 80 Respiratory Rate Blood Pressure Pulse Oximetry Oxygen Delivery Room Air 10/26/23 14:00 Temperature 97.8 F Pulse Rate 79 Respiratory Rate 18 Blood Pressure 102/51 L Pulse Oximetry 92 Oxygen Delivery Intake/Output Intake/Output: Intake & Output 10/23/23 10/24/23 10/25/23 10/26/23 22:59 23:59 23:59 23:59 Intake Total 480 120 Output Total 1150 Balance -670 120 Meds/Results Medications: Active Medications Generic Name Dose Route Start Last Admin Trade Name Freq PRN Reason Stop Dose Admin Hydrocodone Bitart/Acetaminophen 1 tab 10/17/23 18:06 10/23/23 21:11 Hydrocodone/Acetaminophen (*Crx) 5-325 Mg Tablet PO 1 tab Q6H PRN Administration Pain Rated 4-6 Al Hydrox/Mg Hydrox/Simethicone 30 ml 10/16/23 11:25 Mag Hydrox/Al Hydrox/Simeth 30 Ml Udc PO QID PRN Dyspepsia Amiodarone HCl 400 mg 10/16/23 09:00 10/26/23 08:56 Amiodarone Hcl 200 Mg Tablet PO 400 mg DAILY LIBBY Administration Apixaban 10 mg 10/23/23 11:00 10/26/23 08:55 Apixaban 5 Mg Tablet PO 10/29/23 21:01 10 mg Q12HR LIBBY Administration Apixaban 5 mg 10/30/23 09:00 Apixaban 5 Mg Tablet PO Q12HR LIBBY Clopidogrel Bisulfate 75 mg 10/16/23 09:00 10/26/23 08:56 Clopidogrel Bisulfate 75 Mg Tablet PO 75 mg QAM LIBBY Administration Cyclobenzaprine HCl 10 mg 10/16/23 01:13 Cyclobenzaprine Hcl 10 Mg Tablet PO TID PRN muscle spasms Dextrose 12.5 gm 10/16/23 01:16 10/16/23 22:08 Dextrose 50% 25 Gm/50 Ml Syringe IV PUSH 12.5 gm PRN PRN Administration Hypoglycemia Protocol Duloxetine HCl 60 mg 10/16/23 09:00 10/26/23 08:55 Duloxetine Hcl 60 Mg Capsule.Dr PO 60 mg DAILY LIBBY Administration Empagliflozin 25 mg 10/18/23 09:00 10/26/23 08:55 Empagliflozin 25 Mg Tablet PO 25 mg DAILY LIBBY Administration Furosemide 40 mg 10/23/23 17:00 10/26/23 17:31 Furosemide 40 Mg Tablet PO 40 mg BID LIBBY Administration Glucagon 1 mg 10/16/23 01:16 Glucagon For Inj 1 Mg Vial IM PRN PRN Hypoglycemia Protocol Glucose 15 gm 10/16/23 01:16 Glucose Oral Gel 15 Gm Of Glucse In 37.5 Gm Tube PO PRN PRN Hypoglycemia Protocol Dextrose 1,000 mls @ 100 mls/hr 10/16/23 01:16 Dextrose 5% 1,000 Ml IVPB PRN PRN Hypoglycemia
[2023-10-26] MEDS: POTASSIUM CHLORIDE 20 MEQ ER TABLET PO (20:12)
[2023-10-26] MEDS: CYCLOBENZAPRINE HCL 10 MG TABLET PO (20:12)
[2023-10-26] MEDS: MICONAZOLE NITRATE 2% VAGINAL CREAM 45 GM TUBE 1 APPFUL VAGINAL (20:12)
[2023-10-26] MEDS: ACETAMINOPHEN 325 MG TABLET 650 MG PO (21:17)
[2023-10-26 21:29] LABS: Glucose Point of Care 225 mg/dl (65-105)
[2023-10-26 22:00] VITALS: BP 101/51; PULSE 82; RESP 14; TEMP 36.2; O2SAT 98
[2023-10-26 22:51] LABS: Kappa\\Lambda Light Chains 1.54 (0.26-1.65); Lambda Light Chain 23.5 mg/L (5.7-26.3)
[2023-10-27 06:00] VITALS: BP 106/70; PULSE 84; RESP 14; TEMP 36; O2SAT 93
[2023-10-27] MEDS: CENTRAL LINE FLUSH 10 ML IV PUSH (06:06)
[2023-10-27] MEDS: LEVOTHYROXINE SODIUM 50 MCG TABLET PO (06:07)
[2023-10-27 06:19] LABS: Basophils Absolute Auto 0.1 K/mm3 (0.0-0.1); Eosinophils Absolute Auto 0.2 K/mm3 (0-0.3); Eosinophils Percent Auto 2.8 % (0-4.4); Hematocrit 38.3 % (37.0-47.0); Hemoglobin 11.5 g/dL (12.0-15.0); Immature Granulocyte Absolute 0.02 K/mm3 (0.00-0.031); Immature Granulocyte Percent A 0.2 % (0-0.5); Lymphocytes Percent Auto 22.9 % (18.3-44.2); Mean Corpuscular Hemoglobin 23.2 pg (26-34); Mean Corpuscular Volume 77.2 fl (80-100); Mean Platelet Volume 11.7 fl (7.4-10.4); Monocytes Absolute Auto 0.8 K/mm3 (0.1-0.6); Monocytes Percent Auto 9.5 % (2.6-8.5); Neutrophils Absolute Auto 5.3 K/mm3 (1.3-6.7); Neutrophils Percent Auto 63.6 % (45.5-73.1); Platelet Count Result 180 k/mm3 (150-375); Red Blood Count 4.96 M/mm3 (4.2-5.4); Red Cell Distribution Width 17.3 % (11.5-14.5); White Blood Count 8.3 K/mm3 (4.5-10.0)
[2023-10-27 06:28] LABS: Alanine Aminotransferase 19 U/L (6-35); Albumin Level 3.8 g/dL (3.5-5.1); Alkaline Phosphatase 94 U/L (38-126); Anion Gap 8 mmol/L (8-16); Aspartate Amino Transferase 20 U/L (14-36); Bilirubin,Total 0.8 mg/dL (0.2-1.3); Blood Urea Nitrogen 16 mg/dL (7-17); Calcium 8.9 mg/dL (8.4-10.2); Carbon Dioxide 36 mmol/L (22-30); Chloride 94 mmol/L (98-107); Estimated CRCL calculation 48 ml/min; Estimated Glomerular Filt Rate 42; Glucose 157 mg/dL (65-110); Potassium 3.3 mmol/L (3.4-5.0); Sodium 138 mmol/L (137-145)
[2023-10-27 07:15] VITALS: PULSE 80; RESP 18; O2SAT 94
[2023-10-27] MEDS: UMECLIDINIUM/VILANTEROL 62.5-25 MCG ELLIPTA 1 PUFF INHALATION (07:16)
[2023-10-27 07:35] LABS: Glucose Point of Care 146 mg/dl (65-105)
[2023-10-27 08:29] VITALS: PULSE 86
[2023-10-27] MEDS: METOPROLOL SUCCINATE EXT REL 12.5 MG TABCR PO (08:29)
[2023-10-27] MEDS: CLOPIDOGREL BISULFATE 75 MG TABLET PO (08:29)
[2023-10-27 08:30] VITALS: PULSE 86
[2023-10-27] MEDS: AMIODARONE HCL 200 MG TABLET 400 MG PO (08:30)
[2023-10-27] MEDS: PREGABALIN (*CRX) 50 MG CAPSULE PO (08:30)
[2023-10-27] MEDS: APIXABAN 5 MG TABLET 10 MG PO (08:30)
[2023-10-27] MEDS: DULoxetine HCL 60 MG CAPSULE.DR PO (08:30)
[2023-10-27] MEDS: TOLNAFTATE 1% POWDER 45 GM BTL 1 APPLIC TOPICAL (08:30)
[2023-10-27 11:13] LABS: Glucose Point of Care 153 mg/dl (65-105)
[2023-10-27] MEDS: INSULIN ASPART (*BKC) 100 UNITS/ML 10 UNITS SUB-Q (11:31)
[2023-10-27] MEDS: INSULIN GLARGINE (*BKC) 100 UNITS/ML 8 UNITS SUB-Q (11:31)
--- NOTE | 2023-10-27 12:20 | PCOTNOTE ---
Attempted to see Patient at this time. Patient declined at this time, she just finished eating and would like to rest. Patient requested therapy come back later today.
--- NOTE | 2023-10-27 13:15 | PM.DS ---
DS: Admitting Diagnosis Discharge Date October 27, 2023 Admitting Diagnosis Shortness of breath DS: Discharge Diagnosis Discharge Diagnosis (1) Acute on chronic systolic (congestive) heart failure: Code(s): I50.23 - Acute on chronic systolic (congestive) heart failure Status: Acute (2) Pulmonary embolism: Qualifiers: Acute cor pulmonale presence: unspecified Chronicity: acute Pulmonary embolism type: other Qualified Code(s): I26.99 - Other pulmonary embolism without acute cor pulmonale Code(s): I26.99 - Other pulmonary embolism without acute cor pulmonale Status: Acute (3) EVAN (acute kidney injury): Code(s): N17.9 - Acute kidney failure, unspecified Status: Acute DS: Summary Hospital Course Hospital Course: 58-year-old female with past medical history insulin-dependent diabetes mellitus, depression and anxiety, COPD, CKD, CAD status post prior PCI, cardiomyopathy/congestive heart failure with EF 20-25% and grade 1 diastolic dysfunction, peripheral artery disease status post bilateral iliac stents, status post ICD implantation, history of right BKA, hyperlipidemia on Repatha presenting with shortness of breath. Patient admitted on 10/16/2023 for an extended admission and subsequently treated for acute on chronic heart failure exacerbation. Ultimately her acute decompensation did resolve however on 10/25 her blood pressures were very low. Jardiance Lasix and Entresto were discontinued along with midodrine. Spironolactone and metoprolol succinate 12.5 mg q.day were continued. Blood pressure did improve. Acute kidney injury improved. May have been due in part to contrast exposure or sepsis. Ultrasound normal. Repeat BMP in 2 days post discharge. She does have mild underlying CKD. Septic shock did resolve. Levophed discontinued. Secondary to suspected pneumonia. Acute pulmonary embolism discovered. Patient started on Eliquis. A moderate left pleural effusion noted. Continue outpatient surveillance. Patient had syncope related to coughing. Her Lyrica dose was also cut in half. The patient is stable for discharge to half-way facility on 10/26 for rehab. The patient is in understanding and agreement with this plan. She has been educated on adverse effects risk and benefits of all the new medications. She is to follow-up with her primary care physician within 1-2 weeks. The patient was full code during her admission. Time Spent with Patient Time attestation: Total time spent providing and/or coordinating discharge services: Exam Const: General: cooperative and no acute distress Resp: Effort & Inspection: normal respiratory effort Auscultation: clear to auscultation bilaterally Cardio: Rate: regular rate Rhythm: regular rhythm Heart sounds: S1 normal heart sound present and S2 normal heart sound present GI: GI Palp: No abdominal tenderness Auscultation: normal bowel sounds DS: Data Data Completed and Pending Labs on day of discharge: Labs from last 24 hours 10/27/23 10/27/23 10/27/23 11:10 07:27 06:03 WBC 8.3 RBC 4.96 Hgb 11.5 L Hct 38.3 MCV 77.2 L MCH 23.2 L MCHC 30.0 L RDW 17.3 H Plt Count 180 MPV 11.7 H Immature Gran % (Auto) 0.2 Neut % (Auto) 63.6 Lymph % (Auto) 22.9 [place] % (Auto) 9.5 H Eos % (Auto) 2.8 Baso % (Auto) 1.0 Lymph # (Auto) 1.90 [place] # (Auto) 0.8 H Eos # (Auto) 0.2 Baso # (Auto) 0.1 Abs Immat Gran (auto) 0.02 Absolute Neuts (auto) 5.3 Absolute Nucleated RBC 0.000 Nucleated RBC % 0.0 Sodium 138 Potassium 3.3 L Chloride 94 L Carbon Dioxide 36 H Anion Gap 8 BUN 16 Creatinine 1.30 H Estim Creat Clear Calc 48 Estimated GFR 42 L Glucose 157 H POC Capillary Glucose 153 H 146 H Calcium 8.9 Total Bilirubin 0.8 AST 20 ALT 19 Alkaline Phosphatase 94 Total Protein 6.0 L Albumin 3.8 [place]/Lambda R
[2023-10-27 14:00] VITALS: BP 90/68; PULSE 81; RESP 16; TEMP 36.3; O2SAT 96
[2023-10-27] MEDS: NEOMYCIN/POLYMYXIN/BACITRACIN OINTMENT PACKET 1 PACKET (14:04)
[2023-10-27 16:21] LABS: Glucose Point of Care 246 mg/dl (65-105)
[2023-10-27 22:45] LABS: Anti Nuclear Antibody Titer 1:40 (Negative)
[2023-10-28 09:18] LABS: Complement Total CH50 57 U/mL (31-60)
== END 2023-10-27 16:50 | DRG 871 ==
LOC: ANHED 21:33 → ANH2MED 22:44 → ANHICU 10-17 10:23 → ANH3MEDSUR 10-18 11:45
PROVIDERS: Emergency Medicine; Family Medicine; Internal Medicine; Internal Medicine Nephrology; Student in an Organized Health Care Education/Training Program; Admitting Provider Internal Medicine; Emergency Provider Emergency Medicine; PCP Emergency Medicine; Visit Provider General Practice
DX: A41.9 Sepsis, unspecified organism (principal); I26.99 Other pulmonary embolism without acute cor pulmonale; I50.43 Acute on chronic combined systolic (congestive) and diastolic (congestive) heart failure; J18.9 Pneumonia, unspecified organism; R65.21 Severe sepsis with septic shock; J44.0 Chronic obstructive pulmonary disease with (acute) lower respiratory infection; N17.9 Acute kidney failure, unspecified; J44.1 Chronic obstructive pulmonary disease with (acute) exacerbation; I25.5 Ischemic cardiomyopathy; B95.7 Other staphylococcus as the cause of diseases classified elsewhere; G25.3 Myoclonus; R27.8 Other lack of coordination; R29.818 Other symptoms and signs involving the nervous system; R91.1 Solitary pulmonary nodule; E78.00 Pure hypercholesterolemia, unspecified; E11.42 Type 2 diabetes mellitus with diabetic polyneuropathy; E11.51 Type 2 diabetes mellitus with diabetic peripheral angiopathy without gangrene; E11.22 Type 2 diabetes mellitus with diabetic chronic kidney disease; E11.65 Type 2 diabetes mellitus with hyperglycemia; E11.649 Type 2 diabetes mellitus with hypoglycemia without coma; N18.9 Chronic kidney disease, unspecified; R32 Unspecified urinary incontinence; E03.9 Hypothyroidism, unspecified; F41.9 Anxiety disorder, unspecified; F32.A Depression, unspecified; I25.2 Old myocardial infarction; Z20.822 Contact with and (suspected) exposure to COVID-19; Z89.511 Acquired absence of right leg below knee; Z95.5 Presence of coronary angioplasty implant and graft; Z95.1 Presence of aortocoronary bypass graft; Z79.84 Long term (current) use of oral hypoglycemic drugs; Z99.3 Dependence on wheelchair; Z87.891 Personal history of nicotine dependence; Z95.810 Presence of automatic (implantable) cardiac defibrillator; Z95.820 Peripheral vascular angioplasty status with implants and grafts; Z79.4 Long term (current) use of insulin; Z79.02 Long term (current) use of antithrombotics/antiplatelets
CPT/HCPCS: 36415; 36569; 70450; 71045; 71046; 71275; 76775; 80048; 80053; 80202; 81001; 82140; 82436; 82550; 82570; 82948; 83605; 83735; 83880; 83883; 84100; 84133; 84145; 84300; 84484; 85025; 85027; 85055; 85652; 85999; 86038; 86039; 86140; 86160; 86162; 86334; 87040; 87077; 87086; 87181; 87637; 87641; 93005; 93306; 93971; 94618; 94640; 96365; 96367; 96372; 96375; 96376; 97110; 97161; 97166; 97530; 97535; 99285; A9270; C1751; C8929; G0378; J0456; J0696; J1250; J1650; J1815; J1836; J1940; J2405; J3370; J7040; P9047; Q9957; Q9967

== ENCOUNTER 2023-11-16 04:57 | Emergency (ER) | payer MEDICARE, MEDICAID, SELFPAY ==
[2023-11-16] VITALS (8 sets, daily range): BP systolic 99–122; BP diastolic 50–81; PULSE 90–104; RESP 16–19; TEMP 36.7–36.9; O2SAT 93–100
--- NOTE | ~2023-11-16 | XR_ITS ---
Portable chest x-ray Comparison: 10/24/2023 Clinical History: Weakness Findings: Probable moderate left pleural effusion present. Right lung clear. Cardiomediastinal silh ouette is stable, with pacemaker device. Bones and soft tissues are unremarkable. Impression: Moderate left pleural effusion. Pacemaker device and evidence of prior cardiac surgery. Reviewed, dictated and finalized at location . Impression: Moderate left pleural effusion. Pacemaker device and evidence of prior cardiac surgery.
[2023-11-16] MEDS: MORPHINE SULFATE (*CRX) 2 MG/ML INJ IV PUSH (05:24)
[2023-11-16] MEDS: ONDANSETRON INJ 4 MG/2 ML VIAL IV PUSH (05:24)
[2023-11-16 05:38] LABS: Basophils Absolute Auto 0.1 K/mm3 (0.0-0.1); Basophils Percent Auto 0.5 % (0.2-1.2); Eosinophils Absolute Auto 0.2 K/mm3 (0-0.3); Eosinophils Percent Auto 1.5 % (0-4.4); Hematocrit 33.2 % (37.0-47.0); Hemoglobin 9.8 g/dL (12.0-15.0); Immature Granulocyte Absolute 0.06 K/mm3 (0.00-0.031); Immature Granulocyte Percent A 0.5 % (0-0.5); Lymphocytes Absolute Auto 0.92 K/mm3 (0.9-3.2); Lymphocytes Percent Auto 8.4 % (18.3-44.2); Mean Corpuscular HGB Conc 29.5 g/dl (32-36); Mean Corpuscular Hemoglobin 22.8 pg (26-34); Mean Corpuscular Volume 77.2 fl (80-100); Mean Platelet Volume 11.6 fl (7.4-10.4); Monocytes Absolute Auto 0.6 K/mm3 (0.1-0.6); Monocytes Percent Auto 5.3 % (2.6-8.5); Neutrophils Absolute Auto 9.2 K/mm3 (1.3-6.7); Neutrophils Percent Auto 83.8 % (45.5-73.1); Platelet Count Result 197 k/mm3 (150-375); Red Cell Distribution Width 17.2 % (11.5-14.5)
--- NOTE | 2023-11-16 05:40 | PC.NURSE ---
Pt refused giving urine sample at this time. pt states she does not have any urinary sx. EDP Dr. Benjamin made aware.
[2023-11-16 05:49] LABS: Alanine Aminotransferase 11 U/L (6-35); Albumin Level 3.9 g/dL (3.5-5.1); Alkaline Phosphatase 92 U/L (38-126); Anion Gap 10 mmol/L (4-12); Aspartate Amino Transferase 14 U/L (14-36); Bilirubin,Total 0.6 mg/dL (0.2-1.3); Blood Urea Nitrogen 21 mg/dL (7-17); Calcium 8.4 mg/dL (8.4-10.2); Carbon Dioxide 17 mmol/L (22-30); Chloride 110 mmol/L (98-107); Estimated CRCL calculation 59 ml/min; Estimated Glomerular Filt Rate 57; Glucose 291 mg/dL (65-110); Lipase 64 U/L (23-300); Potassium 3.5 mmol/L (3.4-5.0); Sodium 137 mmol/L (137-145)
[2023-11-16 06:14] LABS: Platelet Estimate Adequate (Adequate)
[2023-11-16 06:15] LABS: Anisocytosis 1+; Burr Cells 1+; Macrocytosis 1+ (NORMAL); Poikilocytosis 1+; Schistocytes None Seen
[2023-11-16 06:16] LABS: Tear Drop Cells 1+
--- NOTE | 2023-11-16 06:24 | ED.BACK ---
HPI - Back Pain/Injury General Chief Complaint: Back Pain/Injury <Meche Benjamin MD - Last Filed: 11/16/23 07:13> Stated Complaint: BACK PAIN RADIATING DOWN LEG <Meche Benjamin MD - Last Filed: 11/16/23 07:13> Time Seen by Provider: 11/16/23 12:14 <Meche Benjamin MD - Last Filed: 11/16/23 07:13> History of Present Illness HPI Narrative: Patient is a 58-year-old female who presents to the emergency department this morning complaining of right sided lower back pain radiating to her right leg. Patient admits to a history of sciatica and states that this feels similar. Patient was recently discharged from our facility a few weeks ago with heart failure, pneumonia and at PE. Patient states that she was discharged to a rehab facility and recently got home 2 days ago. Patient states that she feels very weak and is having difficulty even getting in and out of bed secondary to her weakness and sciatic pain. Patient admits that she lives at home alone and is concerned about falling. She admits that she fell 2 weeks ago, denies hitting her head and denies any loss of consciousness. Patient denies any urinary symptoms including dysuria or hematuria, denies any concerns for kidney stones. There are no other modifying, alleviating, or precipitating factors at this time. <Meche Benjamin MD - Last Filed: 11/16/23 07:13> Related Data Home Medications: Home Medications Medication Instructions Recorded Confirmed insulin lispro 100 unit/mL 10 unit subcut TIDWM 03/30/22 10/15/23 subcutaneous solution (Admelog U-100 Insulin lispro) evolocumab 140 mg/mL subcutaneous 140 mg subcut [id number] 06/15/22 10/16/23 pen injector (Bety Friedman) amiodarone 200 mg tablet 400 mg PO DAILY 11/19/22 10/15/23 cyclobenzaprine 10 mg tablet 10 mg PO TID PRN muscle spasms 05/19/23 10/15/23 duloxetine 60 mg capsule,delayed 60 mg PO DAILY 05/28/23 10/15/23 release empagliflozin 25 mg tablet 25 mg PO DAILY 05/28/23 10/15/23 (Jardiance) insulin glargine 100 unit/mL (3 8 unit subcut .COMPLEX 05/28/23 10/15/23 mL) subcutaneous pen (Basaglar KwikPen U-100 Insulin) spironolactone 25 mg tablet 12.5 mg PO DAILY 05/28/23 10/16/23 <Meche Benjamin MD - Last Filed: 11/16/23 07:13> Allergies/Adverse Reactions: Allergies Allergy/AdvReac Type Severity Reaction Status Date / Time methantheline Allergy Unknown Verified 11/16/23 05:05 propofol Allergy Agitated Verified 11/16/23 05:05 Uhujtri-[id number]-NhV Reductase AdvReac Intermediate MYALGIAS Verified 11/16/23 05:05 Inhibitor <Meche Benjamin MD - Last Filed: 11/16/23 07:13> Review of Systems Review of Systems: All systems are reviewed and are negative unless stated otherwise in the HPI. <Meche Benjamin MD - Last Filed: 11/16/23 07:13> PMFSH Past Medical History Medical History: Medical History Anxiety Charcot's joint of foot in type 2 diabetes mellitus Of the right foot Chronic obstructive pulmonary disease Coronary artery disease Left anterior descending stent 01/2019. 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 Peripheral vascular disease due to secondary diabetes Serotonin syndrome Suspected sleep apnea AHI 35 on apnea link on 06/16/2022. <Meche Benjamin MD - Last Filed: 11/16/23 07:13> Surgical History Surgical History: Surgical History History of appendectomy History of section x3 History
--- NOTE | 2023-11-16 07:11 | PC.NURSE ---
BSSR given to DES Rea at this time.
[2023-11-16 08:49] LABS: Appearance Urine Clear (Clear); Bacteria Urine None Seen /hpf; Bilirubin Urine Negative (Negative); Blood Urine Non-Hemolyzed Trace (Negative); Color Urine Yellow (Yellow); Glucose Urine UA 3+ mg/dL (Negative); Ketones Urine Negative (Negative); Leukocyte Esterase Ur Negative LEU/UL (Negative); Need Manual Microscopic Reviewed; Nitrate Urine Negative (Negative); Non Pathogenic Casts 0-2; Protein Urine 2+ mg/dL (Negative); Squamous Epithelial Cell Urine Occasional /hpf (Few); Urobilinogen Urine 0.2 mg/dL (<2.0); pH Urine 5.5 (5.0-9.0)
[2023-11-16 08:52] LABS: Specific Grav Ur 1.032 (1.001-1.035)
[2023-11-16 08:53] LABS: Add Urine Microscopic? YES
--- NOTE | 2023-11-16 12:30 | PC.NURSE ---
Care Coordination attempting to find placement for patient to a SNF. Pt in agreement of this as she states she cannot take care of herself at home.
[2023-11-16] MEDS: KETOROLAC 30 MG/ML VIAL (*BKC) IV PUSH (13:15)
--- NOTE | 2023-11-16 13:58 | PC.NURSE ---
This RN spoke with Jass, pts son, and let him know she will be going home today as insurance wont allow her to return to a SNF until 11/17 and there is no medical reason to keep her. Son states he will stop by pts home this evening to check on her.
[2023-11-16] MEDS: CYCLOBENZAPRINE HCL 10 MG TABLET PO (14:33)
--- NOTE | 2023-11-16 15:33 | PCCCNOTE ---
1240 CC called to the ED for assistance with placement for patient. Pt just left [facility] 2 days ago. Pt wants to be admitted in the hospital for therapy. Explained to patient that there is no medical reason for her to be admitted. She said she would just go home. Called back down shortly there after, patient decided she would go back to [facility]. I spoke with Aileen, the admission coordinator there, she explained that patient left because she didn't want to pay. Pt could come back if she was willing to pay with her SI check. Pt said she spent it already. Aileen said on the of this month, she could come back, but will have to be agreeable to signing the paper for her check to go to the detention for payment. Patient given Aileen's phone number so she can contact her if she would like to do this. The ED nurse spoke with patients son about patient returning home. He was agreeable to going to check on her.
== END 2023-11-16 14:50 | disposition home or self-care (01) ==
PROVIDERS: Emergency Medicine; Emergency Provider Emergency Medicine; PCP Emergency Medicine
DX: M54.50 Low back pain, unspecified (principal); G89.29 Other chronic pain; Z74.2 Need for assistance at home and no other household member able to render care; R82.998 Other abnormal findings in urine; E11.610 Type 2 diabetes mellitus with diabetic neuropathic arthropathy; J44.9 Chronic obstructive pulmonary disease, unspecified; E11.42 Type 2 diabetes mellitus with diabetic polyneuropathy; E11.51 Type 2 diabetes mellitus with diabetic peripheral angiopathy without gangrene; I73.9 Peripheral vascular disease, unspecified; E78.00 Pure hypercholesterolemia, unspecified; F41.9 Anxiety disorder, unspecified; F32.A Depression, unspecified; Z95.1 Presence of aortocoronary bypass graft; Z95.818 Presence of other cardiac implants and grafts; Z87.891 Personal history of nicotine dependence; Z90.711 Acquired absence of uterus with remaining cervical stump; Z89.511 Acquired absence of right leg below knee; Z90.49 Acquired absence of other specified parts of digestive tract; Z79.4 Long term (current) use of insulin
CPT/HCPCS: 36415; 71045; 80053; 81001; 82248; 83690; 83735; 85025; 87086; 87088; 96374; 96375; 99284; A9270; J1885; J2270; J2405

== ENCOUNTER 2023-11-20 23:27 | Inpatient (IN) | payer MEDICARE, MEDICAID, SELFPAY ==
--- NOTE | ~2023-11-20 | XR_ITS ---
EXAMINATION: XR lumbar spine 2-3V DATE: 11/24/2023 10:16 INDICATION: Back pain. TECHNIQUE: 3 views of the lumbar spine were obtained. COMPARISON: Chest CT 10/15/2023, CT abdomen and pelvis 11/24/2023 FINDINGS: There is 4 degrees dextrocurvature of thoracolumbar spine. There are chronic burst fracture s of L1 and L2. There are changes of vertebroplasty in L1. There is an acute compression fracture of L3 with less than 1/5 loss of height. There is mild chronic height loss of L4 and L5 vertebral bodies . There are endplate osteophytes at most levels. There is mildly decreased disc height at L5-S1. Ther e is multilevel mild to moderate facet joint osteoarthritis. There is a stent in left common iliac ve in. There is a stent in right common and external iliac arteries. There is a stent in left external i liac artery. There is internal fixation of left femur. IMPRESSION: 1. Acute L3 compression fracture. 2. Mild lumbar spondylosis. Reviewed, dictated and finalized at location A.
--- NOTE | ~2023-11-20 | CT_ITS ---
EXAMINATION: CT abdomen pelvis wo con DATE: 11/24/2023 10:10 INDICATION: Elevated liver function tests. Increased back pain. TECHNIQUE: Computed tomography (CT) of the abdomen and pelvis was performed without intravenous contr ast. Automated exposure control and iterative reconstruction technique were employed. The dose-length product was 1345.05 mGy-cm. COMPARISON: Ultrasound dated 11/24/2023 and MRI dated 06/26/2022 FINDINGS: Partially visualized small right and small to moderate-sized left posterior layering pleural effusion s with dependent atelectasis in the bilateral lower lobes, left greater than right. Mild mosaic atten uation at the right lung base which could represent additional atelectasis and/or mild pulmonary favio a. Cardiomegaly. Atherosclerotic coronary artery calcifications unchanged prior medial sternotomy and coronary artery bypass grafting. There are retained epicardial pacemaker leads. Dual-lead cardiac pa cemaker/defibrillator with lead tips at the right atrial appendage and very apex of the right ventric le. Mitral valve repair. No pericardial effusion. Cholecystectomy clips at the gallbladder fossa. Liver, spleen, pancreas, bilateral adrenal glands and kidneys are normal. Small amount of ascites scattered throughout the abdomen and pelvis. Bowels are normal with no obstruction. The appendix is not visualized. No pericecal inflammatory change to sugge st acute appendicitis. Bladder is normal. The uterus is not identified and has likely been surgically resected. Bilateral adnexa are unremarkable. There is calcified atherosclerosis of the aorta and man y of the other arteries. Stenting at the right common and external iliac arteries and left external i liac arteries. There is also stenting of the left common iliac vein. Chronic L1 and L2 compression fr actures with moderate anterior vertebral body height loss and chronic L4 and L5 superior endplate com pression fractures. Chronic L1 vertebroplasty. There is a small amount of gas and fluid along a more recent-appearing compression fracture plane underlying the anterior superior endplate of L3 which sol ears new since the prior MRI. Old healed intratrochanteric fracture of the proximal femur with antegr luan intramedullary trey and interlocking femoral neck screw fixation. Diffuse body wall edema.. IMPRESSION: 1. Small right and small to moderate-sized left pleural effusions with associated dependent compressi ve atelectasis and possible mild pulmonary edema there is additional atelectasis in the right lower l obe. 2. Cardiomegaly with postoperative changes including coronary artery bypass grafting and mitral valve repair as detailed above. 3. Nonspecific diffuse body wall edema and small amount of ascites in the abdomen and pelvis. 4. Multiple lumbar compression fracture majority appearing chronic with a recent-appearing fracture p idris underlying the superior endplate of L3. Reviewed, dictated and finalized at location B. IMPRESSION: 1. Small right and small to moderate-sized left pleural effusions with associat ed dependent compressive atelectasis and possible mild pulmonary edema there is additional atelectasis in the right lower lobe. 2. Cardiomegaly with postoperative changes including coronary artery bypass gra fting and mitral valve repair as detailed above. 3. Nonspecific diffuse body wall edema and small amount of ascites in the abdom en and pelvis. 4. Multiple lumbar compression fracture majority appearing chronic with a recen t-appearing fracture plane underlying the superior endplate of L3.
--- NOTE | ~2023-11-20 | US_ITS ---
EXAMINATION: US abdomen limited DATE: 11/24/2023 10:00 INDICATION: Abnormal liver function tests. TECHNIQUE: Multiple grayscale and Doppler ultrasound images of the abdomen were obtained. COMPARISON: Chest CT 10/15/2023 FINDINGS: The visualized portions of the head, body, and tail of the pancreas are normal. The liver i s normal without focal lesion. There is bidirectional flow in main portal vein. The gallbladder is ab sent. The common duct is normal and measures 4 mm. IMPRESSION: 1. Bidirectional flow in main portal vein. Reviewed, dictated and finalized at location A.
--- NOTE | ~2023-11-20 | XR_ITS ---
XR sacrum coccyx min 2V DATE: 11/21/2023 01:03 INDICATION: Fall. Tailbone pain. History of previous tailbone fracture. TECHNIQUE: AP, angled AP and lateral views COMPARISON: 05/02/2022 CT pelvis is not available from the archive at this time. FINDINGS: Left common iliac vein and bilateral iliac arterial stents are noted. Compression screw and nail proximal left femur. There is osteopenia. Normal alignment at the pubic symphysis and sacroiliac joints. No sacral or coccygeal recent fracture is evident. Due to the osteopenia and overlying bowel content, CT or radionuclide bone scan would be more sensiti ve for detection of fracture. IMPRESSION: No apparent fracture of sacrum or coccyx is evident; Limited examination due to osteopeni a, overlying bowel. CT or radionuclide bone scan would be more sensitive for detection of sacral or c occygeal fractures. Reviewed, dictated and finalized at location A. IMPRESSION: No apparent fracture of sacrum or coccyx is evident; Limited examin ation due to osteopenia, overlying bowel. CT or radionuclide bone scan would be more sensitive for detection of sacral or coccygeal fractures.
[2023-11-20 23:27] VITALS: BP 128/73; PULSE 99; RESP 18; TEMP 36.8; O2SAT 95
[2023-11-21] VITALS (12 sets, daily range): BP systolic 99–132; BP diastolic 52–90; PULSE 90–102; RESP 14–18; TEMP 36.4–36.8; O2SAT 88–100; BMI 30.2
[2023-11-21] MEDS: HYDROmorphone HCL INJ (*CRX) 1 MG/ML SYR 0.5 MG IV PUSH (02:30)
[2023-11-21 02:40] LABS: Basophils Absolute Auto 0.1 K/mm3 (0.0-0.1); Basophils Percent Auto 0.8 % (0.2-1.2); Eosinophils Absolute Auto 0.1 K/mm3 (0-0.3); Eosinophils Percent Auto 1.7 % (0-4.4); Hematocrit 33.4 % (37.0-47.0); Hemoglobin 9.9 g/dL (12.0-15.0); Immature Granulocyte Absolute 0.03 K/mm3 (0.00-0.031); Immature Granulocyte Percent A 0.4 % (0-0.5); Lymphocytes Absolute Auto 1.35 K/mm3 (0.9-3.2); Lymphocytes Percent Auto 17.2 % (18.3-44.2); Mean Corpuscular HGB Conc 29.6 g/dl (32-36); Mean Corpuscular Volume 74.4 fl (80-100); Mean Platelet Volume 10.9 fl (7.4-10.4); Monocytes Absolute Auto 0.5 K/mm3 (0.1-0.6); Monocytes Percent Auto 6.3 % (2.6-8.5); Neutrophils Absolute Auto 5.8 K/mm3 (1.3-6.7); Neutrophils Percent Auto 73.6 % (45.5-73.1); Platelet Count Result 198 k/mm3 (150-375); Red Blood Count 4.49 M/mm3 (4.2-5.4); Red Cell Distribution Width 16.9 % (11.5-14.5); White Blood Count 7.8 K/mm3 (4.5-10.0)
[2023-11-21 02:51] LABS: Platelet Estimate Adequate (Adequate)
[2023-11-21 02:52] LABS: Anisocytosis 1+; Hypochromasia 1+; Large Platelets Present; Microcytosis 1+ (NORMAL); Poikilocytosis 1+
[2023-11-21 02:53] LABS: Ovalocytes 1+; Schistocytes None Seen
[2023-11-21 02:53] LABS: Alanine Aminotransferase 12 U/L (6-35); Alkaline Phosphatase 98 U/L (38-126); Anion Gap 7 mmol/L (4-12); Aspartate Amino Transferase 19 U/L (14-36); Bilirubin,Total 0.7 mg/dL (0.2-1.3); Blood Urea Nitrogen 24 mg/dL (7-17); Calcium 9.3 mg/dL (8.4-10.2); Carbon Dioxide 19 mmol/L (22-30); Chloride 109 mmol/L (98-107); Estimated Glomerular Filt Rate > 60; Glucose 275 mg/dL (65-110); Magnesium 1.9 mg/dL (1.6-2.3); Potassium 4.5 mmol/L (3.4-5.0); Sodium 135 mmol/L (137-145)
--- NOTE | 2023-11-21 02:54 | ED.FALL ---
HPI - Fall General Chief Complaint: Fall Stated Complaint: PAIN TO COCCYX S/P FALL YESTERDAY Time Seen by Provider: 11/21/23 02:06 History of Present Illness HPI Narrative: Patient is 58-year-old female who presents to the emergency department this evening complaining of a fall at home and tailbone pain. Patient states that she has at home alone and has been having recurrent falls and is unable to care self. She was recently admitted to our facility a few weeks ago and discharged to a rehab facility she has spent 12 days in and was doing well, however, her insurance kicked her out of the rehab facility and patient feels as though she needs to be placed back in rehab or halfway. She denies hitting her head today and denies any loss of consciousness. Patient's only complaint is tail bone pain and states that this feels similar to the last time she broke her tailbone, and understands that I feel a thing to do for this is pain control. There are no other modifying, alleviating, or precipitating factors at this time. Related Data Home Medications Medication Instructions Recorded Confirmed insulin lispro 100 unit/mL 10 unit subcut TIDWM 03/30/22 11/21/23 subcutaneous solution (Admelog U-100 Insulin lispro) evolocumab 140 mg/mL subcutaneous 140 mg subcut V3ESIFF 06/15/22 11/21/23 pen injector (Bety Friedman) amiodarone 200 mg tablet 400 mg PO DAILY 11/19/22 11/21/23 cyclobenzaprine 10 mg tablet 10 mg PO TID PRN muscle spasms 05/19/23 11/21/23 duloxetine 60 mg capsule,delayed 60 mg PO DAILY 05/28/23 11/21/23 release empagliflozin 25 mg tablet 25 mg PO DAILY 05/28/23 11/21/23 (Jardiance) insulin glargine 100 unit/mL (3 8 unit subcut .COMPLEX 05/28/23 11/21/23 mL) subcutaneous pen (Basaglar KwikPen U-100 Insulin) spironolactone 25 mg tablet 12.5 mg PO DAILY 05/28/23 11/21/23 Allergies Allergy/AdvReac Type Severity Reaction Status Date / Time methantheline Allergy Unknown Verified 11/20/23 23:35 propofol Allergy Agitated Verified 11/20/23 23:35 Apdlasx-XZB-XaN Reductase AdvReac Intermediate MYALGIAS Verified 11/20/23 23:35 Inhibitor Review of Systems Review of Systems: All systems are reviewed and are negative unless stated otherwise in the HPI. [facility] Past Medical History Medical History Anxiety Charcot's joint of foot in type 2 diabetes mellitus Of the right foot Chronic obstructive pulmonary disease Coronary artery disease Left anterior descending stent 01/2019. Usual sander machine is Dr. 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 Peripheral vascular disease due to secondary diabetes Serotonin syndrome Suspected sleep apnea AHI 35 on apnea link on 06/16/2022. Surgical History Surgical History History of appendectomy History of section x3 History of hysterectomy Partial, ovaries retained. Due to cervical changes. History of tonsillectomy and adenoidectomy History of vertebroplasty Hx of BKA Right 11/19/20 at [facility] S/P CABG x 5 w/MVR and left atrial appendage ligation Status post cholecystectomy Stented coronary artery X1 Family History Family History Sibling Diabetes mellitus Mother Heart failure Cardiomegaly Arthritis Atrial fibrillation Family history of osteoporosis Family history of Alzheimer's disease Hypertension Cardiomyopathy Acute myocardial infarction History of heart artery stent Congestive he
--- NOTE | 2023-11-21 04:08 | ADMGEN ---
This patient, Tiff Vaughn, was admitted to Medical Room 258-. Patient/family oriented to hospital policies and general routines including ID bracelet, bed and alarms, visiting hours, pain management, procedures, bathroom and other care routines, personal items, smoking policy, room service/diet, and visiting hours. Information on how to activate the Rapid Response Team has been discussed. Patient/Family are encouraged to report perceived risks to care and to ask questions if they do not understand what they are told or what they should do.
--- NOTE | 2023-11-21 07:00 | PM.IMPN ---
Subjective Date/time seen: 11/21/23 07:00 Interval history: This is a 58-year-old female with a significant past medical history anxiety, type 2 diabetes mellitus, coronary artery disease, depression, diabetic peripheral neuropathy, hypercholesterolemia, peripheral artery disease, 5 vessel CABG, hysterectomy, appendectomy, tonsillectomy, BKA on the right, former smoker who presented to the emergency room for evaluation after a ground level fall and tailbone pain. Patient was admitted and discharged to a rehab facility this month. She spent 12 days there before insurance denied anymore rehab days. She went home and then sustained a fall last night. Patient states she is not able to care for herself at home and is wanting placement. Work up in the hospital included a sacrum and coccyx x-ray which revealed. Labs today reveal hemoglobin of 9.9, sodium 135, bicarb 19, magnesium 1.9, liver enzymes are normal. Last echo was reviewed from 10/18/2023 which shows of severely reduced LV systolic function with an estimated EF of 20-25%, grade 1 diastolic dysfunction. Patient was given dilaudid for pain while in the ER. Review of Systems Review of Systems: All systems reviewed & are unremarkable except as noted in HPI and below Constitutional: Constitutional: Reports as per HPI and Reports no additional constitutional complaints Eyes: Eyes: Reports as per HPI and Reports no additional eye complaints ENT: Reports system reviewed and no additional complaints, except as documented and Reports as per HPI Cardiovascular: Cardiovascular: Reports as per HPI and Reports no additional cardiovascular complaints Respiratory: Respiratory: Reports as per HPI and Reports no additional respiratory complaints Gastrointestinal: Gastrointestinal: Reports as per HPI and Reports no additional gastrointestinal complaints Genitourinary: Genitourinary: Reports no additional female genitourinary complaints and Reports as per HPI Musculoskeletal: Musculoskeletal: Reports no additional musculoskeletal complaints and Reports as per HPI Integumentary/Breasts: Skin/Breast: Reports system reviewed and no additional complaints, except as docu and Reports as per HPI Neurologic: Reports system reviewed and no additional complaints, except as documented and Reports as per HPI Psychiatric: Psychiatric: Reports no additional psychiatric complaints and Reports as per HPI Exam Narrative: General: In no acute distress, well nourished Head: atraumatic, no encephalopathy Eyes: EOMI, PERRLA, sclera clear ENT: moist mucous membranes, nasal passages clear Neck: supple, no JVD, no adenopathy, trachea midline Cardiac: Normal S1 and S2. No murmur, gallops or friction rubs, peripheral pulses intact. Respiratory: Lungs clear to auscultation, no adventitious lung sounds Gastrointestinal: soft, non-distended, non-tender, normoactive bowel sounds. : voiding without difficulty. Extremities: moves all extremities well, no edema, good ROM, strength 5/5 Skin: clean, dry, intact. No wounds or lesions. Neuro: Alert and oriented x4, cranial nerves intact, no neuro deficits. Psych: normal mood, normal affect, interactive Objective Data Vital Signs Vital Signs: Vital Signs - 24 hr 11/20/23 23:27 11/21/23 01:12 11/21/23 02:07 Temperature 98.2 F Pulse Rate 99 99 102 H Respiratory Rate 18 18 16 Blood Pressure 128/73 112/54 L 124/90 Pulse Oximetry 95 95 96 Oxygen Delivery Room Air Oxygen Flow Rate 11/21/23 03:12 11/21/23 03:15 11/21/23 04:19 Temperature Pulse Rate 95 Respiratory Rate 14 Blood Pressure 132/81 Pulse Oximetry 88 L 98 95 Oxygen Delivery Nasal Cannula Nasal Cannula Oxygen Flow Rate 2 2 11/21/23 04:15 Temperature 98.3 F Pulse Rate 98 Respiratory Rate 16 Blood Pressure 117/63 Pulse Oximetry 100 Oxygen Delivery Oxygen Flow Rate Intake/Output Intake/Output: Intake & Output 11/18/23 11/19/23 11/20/23 11/21/23 23:59 23:59 23:5
--- NOTE | 2023-11-21 07:35 | PM.IMHP ---
H&P: HPI History of Present Illness Date/Time: 11/21/23 07:35 Chief Complaint: Ground level fall physical deconditioning weakness Narrative: Interval history: This is a 58-year-old female with a significant past medical history anxiety, type 2 diabetes mellitus, coronary artery disease, depression, diabetic peripheral neuropathy, hypercholesterolemia, peripheral artery disease, 5 vessel CABG, hysterectomy, appendectomy, tonsillectomy, BKA on the right, former smoker who presented to the emergency room for evaluation after a ground level fall and tailbone pain.?Most of history and presenting illness obtained through the medical record as patient is arousable to voice but drifts back to sleep during my assessment. Patient was admitted and discharged to a rehab facility this month.? She spent 12 days there before insurance denied anymore rehab days.? She went home and then sustained a fall last night. Patient states she is not able to care for herself at home and is wanting placement. Work up in the hospital included a sacrum and coccyx x-ray which was negative for fracture.? Labs today reveal hemoglobin of 9.9, sodium 135, bicarb 19, magnesium 1.9, liver enzymes are normal.? Last echo was reviewed from 10/18/2023 which shows of severely reduced LV systolic function with an estimated EF of 20-25%, grade 1 diastolic dysfunction. Patient was given Dilaudid for pain while in the ER. Review of Systems Review of Systems: ROS unobtainable: Yes unobtainable due to mental status PMFSH Past Medical History Medical History Anxiety Charcot's joint of foot in type 2 diabetes mellitus Of the right foot Chronic obstructive pulmonary disease Coronary artery disease Left anterior descending stent 01/2019. 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 Peripheral vascular disease due to secondary diabetes Serotonin syndrome Suspected sleep apnea AHI 35 on apnea link on 06/16/2022. Surgical History Surgical History History of appendectomy History of section x3 History of hysterectomy Partial, ovaries retained. Due to cervical changes. History of tonsillectomy and adenoidectomy History of vertebroplasty Hx of BKA Right 11/19/20 at [facility] S/P CABG x 5 w/MVR and left atrial appendage ligation Status post cholecystectomy Stented coronary artery X1 Family History Family History Sibling Diabetes mellitus Mother Heart failure Cardiomegaly Arthritis Atrial fibrillation Family history of osteoporosis Family history of Alzheimer's disease Hypertension Cardiomyopathy Acute myocardial infarction History of heart artery stent Congestive heart failure Daughter Anxiety Father Esophagus cancer Cancer of spinal column Social History Social History Social History: The patient is . The patient had 4 children and 1 of her daughters is now. She is disabled. She is a former smoker. She denies any alcohol marijuana or illicit drugs. Primarily wheelchair-bound. Surrogate medical decision maker: Jass Arciniega, son. Code status: Full code. Smoking packs per day: 1.5 Smoking cigarettes per day: 30.0 Years smoked: 20 Smoking pack-years: 30.00 Smoking status: Former smoker Additional smoking assessment comments: quit 2019 Alcohol intake: former Substance use: never Substance u
[2023-11-21] MEDS: DOCUSATE SODIUM 100 MG CAPSULE PO ×2 (08:23→17:42)
[2023-11-21] MEDS: LEVOTHYROXINE SODIUM 50 MCG TABLET PO (08:23)
[2023-11-21] MEDS: PREGABALIN (*CRX) 50 MG CAPSULE PO ×2 (08:23→20:40)
[2023-11-21] MEDS: APIXABAN 5 MG TABLET PO ×2 (08:23→20:40)
[2023-11-21] MEDS: AMIODARONE HCL 200 MG TABLET 400 MG PO (08:23)
[2023-11-21] MEDS: DULoxetine HCL 60 MG CAPSULE.DR PO (08:23)
[2023-11-21] MEDS: SPIRONOLACTONE 12.5 MG TABLET PO (08:23)
[2023-11-21] MEDS: CLOPIDOGREL BISULFATE 75 MG TABLET PO (08:26)
[2023-11-21] MEDS: EMPAGLIFLOZIN 25 MG TABLET PO (08:26)
[2023-11-21] MEDS: INSULIN ASPART (*BKC) 100 UNITS/ML 10 UNITS SUB-Q ×2 (08:26→17:37)
[2023-11-21] MEDS: INSULIN ASPART (*BKC) 100 UNITS/ML SUB-Q (08:27)
[2023-11-21] MEDS: METOPROLOL SUCCINATE EXT REL 12.5 MG TABCR PO (08:29)
[2023-11-21 08:50] LABS: Glucose Point of Care 228 mg/dl (65-105)
[2023-11-21] MEDS: traMADol HCL (*CRX) 25 MG TABLET PO (09:22)
[2023-11-21] MEDS: DEXTROSE 5%/0.9% SOD CHL 1,000 ML 75 ML IV CONT (13:42)
[2023-11-21 14:44] LABS: Glucose Point of Care 88 mg/dl (65-105)
--- NOTE | 2023-11-21 16:38 | PC.NURSE ---
1305: pt had adult hypoglycemia event with POC blood glucose of 60. Hypoglycemia protocol followed, orders received from ENGRAVER JEWELRY. 1320: 15min recheck was >70. Hypoglycemia protocol complete
[2023-11-21 17:12] LABS: Glucose Point of Care 87 mg/dl (65-105)
[2023-11-21 17:12] LABS: Glucose Point of Care 60 mg/dl (65-105)
[2023-11-21 17:21] LABS: Glucose Point of Care 157 mg/dl (65-105)
[2023-11-21] MEDS: CYCLOBENZAPRINE HCL 10 MG TABLET PO (17:42)
[2023-11-21 21:00] LABS: Glucose Point of Care 97 mg/dl (65-105)
[2023-11-21] MEDS: oxyCODONE HCL (*CRX) 5 MG TAB IR 10 MG PO (23:31)
[2023-11-22 04:56] VITALS: BP 95/45; PULSE 80; RESP 18; TEMP 36.5; O2SAT 97
[2023-11-22] MEDS: LEVOTHYROXINE SODIUM 50 MCG TABLET PO (06:06)
[2023-11-22] MEDS: DEXTROSE 5%/0.9% SOD CHL 1,000 ML 75 ML IV CONT (06:06)
--- NOTE | 2023-11-22 07:38 | P.PNIM_ITS ---
Progress Note: A&P Assessment and Plan (1) Ground-level fall: Code(s): W18.30XA - Fall on same level, unspecified, initial encounter Status: Acute Assessment and Plan: 11/21/23: * Patient sustained a ground level fall at home * Sacrum/coccyx x-ray was negative for fracture of sacrum or coccyx * Recently was discharged from a rehab facility, currently patient lives alone * PT and OT to eval and treat * Case management consulted for outpatient rehab needs versus jail placement * Continue pain control 11/22/23: * Continue PT and OT * Case management following * No change to current treatment plan (2) Adult failure to thrive: Code(s): R62.7 - Adult failure to thrive Status: Acute Assessment and Plan: 11/21/23: * see above (3) Physical deconditioning: Code(s): R53.81 - Other malaise Status: Acute Assessment and Plan: 11/21/23: * see above (4) Pain, coccyx: Code(s): M53.3 - Sacrococcygeal disorders, not elsewhere classified Status: Acute Assessment and Plan: 11/21/23: * Continue with pain control efforts 11/22/23: * No change to current treatment plan (5) CHF (congestive heart failure): Qualifiers: Heart failure chronicity: chronic Heart failure type: systolic Qualified Code(s): I50.22 - Chronic systolic (congestive) heart failure Code(s): I50.9 - Heart failure, unspecified Status: Chronic Assessment and Plan: 11/21/23: * Combined systolic and diastolic CHF * Last echo on 10/18/23 shown a severely reduced LV systolic function with an estimated EF of 20-25%, grade 1 diastolic dysfunction * Continue Jardiance, spironolactone, and metoprolol 11/22/23: * No change to current treatment plan (6) Anxiety: Code(s): F41.9 - Anxiety disorder, unspecified Status: Chronic Assessment and Plan: 11/21/23: * Continue Xanax 11/22/23: * No change to current treatment plan (7) Diabetes mellitus: Code(s): E11.9 - Type 2 diabetes mellitus without complications Status: Chronic Assessment and Plan: 11/21/23: * Accu checks AC/HS * Last Hgb A1C was 8.0 * Blood glucose 275 * low dose SSI ordered * Meal time insulin ordered * Diabetic diet ordered * Lantus 8 units ordered * Hypoglycemia protocol in place 11/22/23: * Blood sugars ranging 97-157 * No change to current treatment plan (8) Coronary artery disease: Qualifiers: Associated angina: without angina Coronary Disease-Associated Artery/Lesion type: [place] artery [place] vs. transplanted heart: [place] heart Qualified Code(s): I25.10 - Atherosclerotic heart disease of [place] coronary artery without angina pectoris Code(s): I25.10 - Atherosclerotic heart disease of [place] coronary artery without angina pectoris Status: Acute Assessment and Plan: 11/21/23: * Hx of 5v CABG * Continue Plavix 11/22/23: * No change to current treatment plan (9) Depression: Code(s): F32.9 - Major depressive disorder, single episode, unspecified Status: Chronic Assessment and Plan: 11/21/23: * Continue Cymbalta 11/22/23: * No change to current treatment plan Time Spent With Patient Time with patient: 25 - 35 minutes Subjective Date/time seen: 11/22/23 07:38 Interval history: 10/21/23: This is a 58-year-old female with a significant past medical history anxiety, type 2 diabetes mellitus, coronary artery disease, depression, diabeti
--- NOTE | 2023-11-22 07:38 | PM.IMPN ---
Progress Note: A&P Assessment and Plan (1) Ground-level fall: Code(s): W18.30XA - Fall on same level, unspecified, initial encounter Status: Acute Assessment and Plan: 11/21/23: Patient sustained a ground level fall at home Sacrum/coccyx x-ray was negative for fracture of sacrum or coccyx Recently was discharged from a rehab facility, currently patient lives alone PT and OT to eval and treat Case management consulted for outpatient rehab needs versus [facility]ci placement Continue pain control 11/22/23: Continue PT and OT Case management following No change to current treatment plan (2) Adult failure to thrive: Code(s): R62.7 - Adult failure to thrive Status: Acute Assessment and Plan: 11/21/23: see above (3) Physical deconditioning: Code(s): R53.81 - Other malaise Status: Acute Assessment and Plan: 11/21/23: see above (4) Pain, coccyx: Code(s): M53.3 - Sacrococcygeal disorders, not elsewhere classified Status: Acute Assessment and Plan: 11/21/23: Continue with pain control efforts 11/22/23: No change to current treatment plan (5) CHF (congestive heart failure): Qualifiers: Heart failure chronicity: chronic Heart failure type: systolic Qualified Code(s): I50.22 - Chronic systolic (congestive) heart failure Code(s): I50.9 - Heart failure, unspecified Status: Chronic Assessment and Plan: 11/21/23: Combined systolic and diastolic CHF Last echo on 10/18/23 shown a severely reduced LV systolic function with an estimated EF of 20-25%, grade 1 diastolic dysfunction Continue Jardiance, spironolactone, and metoprolol 11/22/23: No change to current treatment plan (6) Anxiety: Code(s): F41.9 - Anxiety disorder, unspecified Status: Chronic Assessment and Plan: 11/21/23: Continue Xanax 11/22/23: No change to current treatment plan (7) Diabetes mellitus: Code(s): E11.9 - Type 2 diabetes mellitus without complications Status: Chronic Assessment and Plan: 11/21/23: Accu checks AC/HS Last Hgb A1C was 8.0 Blood glucose 275 low dose SSI ordered Meal time insulin ordered Diabetic diet ordered Lantus 8 units ordered Hypoglycemia protocol in place 11/22/23: Blood sugars ranging 97-157 No change to current treatment plan (8) Coronary artery disease: Qualifiers: Associated angina: without angina Coronary Disease-Associated Artery/Lesion type: [place] artery [place] vs. transplanted heart: [place] heart Qualified Code(s): I25.10 - Atherosclerotic heart disease of [place] coronary artery without angina pectoris Code(s): I25.10 - Atherosclerotic heart disease of [place] coronary artery without angina pectoris Status: Acute Assessment and Plan: 11/21/23: Hx of 5v CABG Continue Plavix 11/22/23: No change to current treatment plan (9) Depression: Code(s): F32.9 - Major depressive disorder, single episode, unspecified Status: Chronic Assessment and Plan: 11/21/23: Continue Cymbalta 11/22/23: No change to current treatment plan Time Spent With Patient Time with patient: 25 - 35 minutes Subjective Date/time seen: 11/22/23 07:38 Interval history: 10/21/23: This is a 58-year-old female with a significant past medical history anxiety, type 2 diabetes mellitus, coronary artery disease, depression, diabetic peripheral neuropathy, hypercholesterolemia, peripheral artery disease, 5 vessel CABG, hysterectomy, appendectomy, tonsillectomy, BKA on the right, former smoker who presented to the emergency room for evaluation after a ground level fall and tailbone pain.?Most of history and presenting illness obtained through the medical record as patient is arousable to voice but drifts back to sleep during my assessment.? Patient was admitted and discharged to a rehab facility this month.? She spent 12 days there before insurance denied
[2023-11-22 08:25] LABS: Glucose Point of Care 165 mg/dl (65-105)
[2023-11-22 08:29] LABS: Basophils Absolute Auto 0.1 K/mm3 (0.0-0.1); Basophils Percent Auto 1.2 % (0.2-1.2); Eosinophils Absolute Auto 0.2 K/mm3 (0-0.3); Eosinophils Percent Auto 2.5 % (0-4.4); Hematocrit 29.6 % (37.0-47.0); Hemoglobin 8.6 g/dL (12.0-15.0); Immature Granulocyte Absolute 0.02 K/mm3 (0.00-0.031); Immature Granulocyte Percent A 0.3 % (0-0.5); Lymphocytes Absolute Auto 1.27 K/mm3 (0.9-3.2); Mean Corpuscular HGB Conc 29.1 g/dl (32-36); Mean Corpuscular Hemoglobin 22.1 pg (26-34); Mean Corpuscular Volume 76.1 fl (80-100); Mean Platelet Volume 10.8 fl (7.4-10.4); Monocytes Absolute Auto 0.5 K/mm3 (0.1-0.6); Monocytes Percent Auto 7.8 % (2.6-8.5); Neutrophils Absolute Auto 4.6 K/mm3 (1.3-6.7); Neutrophils Percent Auto 69.2 % (45.5-73.1); Platelet Count Result 197 k/mm3 (150-375); Red Blood Count 3.89 M/mm3 (4.2-5.4); White Blood Count 6.7 K/mm3 (4.5-10.0)
[2023-11-22 08:34] LABS: Alanine Aminotransferase 11 U/L (6-35); Albumin Level 3.4 g/dL (3.5-5.1); Alkaline Phosphatase 83 U/L (38-126); Anion Gap 8 mmol/L (4-12); Aspartate Amino Transferase 19 U/L (14-36); Bilirubin,Total 0.6 mg/dL (0.2-1.3); Blood Urea Nitrogen 26 mg/dL (7-17); Calcium 8.6 mg/dL (8.4-10.2); Carbon Dioxide 15 mmol/L (22-30); Chloride 113 mmol/L (98-107); Estimated CRCL calculation 57 ml/min; Estimated Glomerular Filt Rate 51; Glucose 177 mg/dL (65-110); Potassium 4.2 mmol/L (3.4-5.0); Sodium 136 mmol/L (137-145)
[2023-11-22 09:40] VITALS: PULSE 80; RESP 18; O2SAT 97
[2023-11-22] MEDS: SPIRONOLACTONE 12.5 MG TABLET PO (09:40)
[2023-11-22] MEDS: APIXABAN 5 MG TABLET PO ×2 (09:40→20:48)
[2023-11-22] MEDS: PREGABALIN (*CRX) 50 MG CAPSULE PO ×2 (09:40→20:48)
[2023-11-22] MEDS: AMIODARONE HCL 200 MG TABLET 400 MG PO (09:40)
[2023-11-22] MEDS: DULoxetine HCL 60 MG CAPSULE.DR PO (09:40)
[2023-11-22] MEDS: EMPAGLIFLOZIN 25 MG TABLET PO (09:40)
[2023-11-22] MEDS: DOCUSATE SODIUM 100 MG CAPSULE PO ×2 (09:40→17:17)
[2023-11-22] MEDS: CLOPIDOGREL BISULFATE 75 MG TABLET PO (09:40)
[2023-11-22 09:41] VITALS: PULSE 80
[2023-11-22] MEDS: METOPROLOL SUCCINATE EXT REL 12.5 MG TABCR PO (09:41)
[2023-11-22 10:24] LABS: Anisocytosis 1+; Hypochromasia 1+; Platelet Estimate Adequate (Adequate)
[2023-11-22 10:25] LABS: Microcytosis 1+ (NORMAL); Schistocytes None Seen
[2023-11-22] MEDS: INSULIN GLARGINE (*BKC) 100 UNITS/ML 8 UNITS SUB-Q (12:00)
[2023-11-22] MEDS: INSULIN ASPART (*BKC) 100 UNITS/ML 10 UNITS SUB-Q (12:00)
[2023-11-22 12:15] LABS: Glucose Point of Care 177 mg/dl (65-105)
[2023-11-22] MEDS: CYCLOBENZAPRINE HCL 10 MG TABLET PO (13:42)
[2023-11-22] MEDS: traMADol HCL (*CRX) 25 MG TABLET PO (13:43)
[2023-11-22 14:00] VITALS: BP 106/56; PULSE 85; RESP 18; TEMP 36.5; O2SAT 94
[2023-11-22] MEDS: ONDANSETRON INJ 4 MG/2 ML VIAL IV PUSH (15:33)
[2023-11-22 17:16] LABS: Glucose Point of Care 94 mg/dl (65-105)
[2023-11-22 20:50] VITALS: O2SAT 94
[2023-11-22 21:04] VITALS: BP 95/58; PULSE 85; RESP 17; TEMP 36.8; O2SAT 93
[2023-11-22 21:19] LABS: Glucose Point of Care 107 mg/dl (65-105)
[2023-11-23] VITALS (9 sets, daily range): BP systolic 95–129; BP diastolic 50–71; PULSE 73–83; RESP 16–20; TEMP 36.4–36.8; O2SAT 91–100
[2023-11-23 05:20] LABS: Basophils Absolute Auto 0.1 K/mm3 (0.0-0.1); Basophils Percent Auto 0.6 % (0.2-1.2); Eosinophils Percent Auto 0.1 % (0-4.4); Hemoglobin 9.9 g/dL (12.0-15.0); Immature Granulocyte Absolute 0.04 K/mm3 (0.00-0.031); Immature Granulocyte Percent A 0.5 % (0-0.5); Lymphocytes Absolute Auto 0.75 K/mm3 (0.9-3.2); Lymphocytes Percent Auto 8.5 % (18.3-44.2); Mean Corpuscular HGB Conc 28.3 g/dl (32-36); Mean Corpuscular Hemoglobin 22.1 pg (26-34); Mean Corpuscular Volume 78.3 fl (80-100); Mean Platelet Volume 11.6 fl (7.4-10.4); Monocytes Absolute Auto 0.4 K/mm3 (0.1-0.6); Monocytes Percent Auto 4.5 % (2.6-8.5); Neutrophils Absolute Auto 7.6 K/mm3 (1.3-6.7); Neutrophils Percent Auto 85.8 % (45.5-73.1); Platelet Count Result 221 k/mm3 (150-375); Red Blood Count 4.47 M/mm3 (4.2-5.4); Red Cell Distribution Width 17.2 % (11.5-14.5); White Blood Count 8.8 K/mm3 (4.5-10.0)
[2023-11-23 05:42] LABS: Alanine Aminotransferase 20 U/L (6-35); Albumin Level 4.4 g/dL (3.5-5.1); Alkaline Phosphatase 118 U/L (38-126); Anion Gap 13 mmol/L (4-12); Aspartate Amino Transferase 48 U/L (14-36); Blood Urea Nitrogen 31 mg/dL (7-17); Calcium 8.7 mg/dL (8.4-10.2); Carbon Dioxide 12 mmol/L (22-30); Chloride 112 mmol/L (98-107); Estimated CRCL calculation 52 ml/min; Estimated Glomerular Filt Rate 46; Glucose 156 mg/dL (65-110); Sodium 137 mmol/L (137-145)
[2023-11-23 05:47] LABS: Potassium 5.2 mmol/L (3.4-5.0)
[2023-11-23 05:56] LABS: Platelet Estimate Adequate (Adequate)
[2023-11-23 05:57] LABS: Anisocytosis 1+; Hypochromasia 1+; Ovalocytes 1+; Schistocytes None Seen
[2023-11-23] MEDS: LEVOTHYROXINE SODIUM 50 MCG TABLET PO (06:22)
[2023-11-23 08:09] LABS: Glucose Point of Care 124 mg/dl (65-105)
[2023-11-23 08:22] LABS: Glucose Point of Care 139 mg/dl (65-105)
[2023-11-23] MEDS: APIXABAN 5 MG TABLET PO ×2 (09:18→21:04)
[2023-11-23] MEDS: EMPAGLIFLOZIN 25 MG TABLET PO (09:18)
[2023-11-23] MEDS: AMIODARONE HCL 200 MG TABLET 400 MG PO (09:18)
[2023-11-23] MEDS: SPIRONOLACTONE 12.5 MG TABLET PO (09:18)
[2023-11-23] MEDS: CLOPIDOGREL BISULFATE 75 MG TABLET PO (09:18)
[2023-11-23] MEDS: METOPROLOL SUCCINATE EXT REL 12.5 MG TABCR PO (09:18)
[2023-11-23] MEDS: DOCUSATE SODIUM 100 MG CAPSULE PO ×2 (09:19→17:17)
[2023-11-23] MEDS: PREGABALIN (*CRX) 50 MG CAPSULE PO ×2 (09:19→21:03)
[2023-11-23] MEDS: DULoxetine HCL 60 MG CAPSULE.DR PO (09:19)
[2023-11-23 11:51] LABS: Glucose Point of Care 145 mg/dl (65-105)
[2023-11-23] MEDS: INSULIN GLARGINE (*BKC) 100 UNITS/ML 8 UNITS SUB-Q (11:56)
[2023-11-23] MEDS: INSULIN ASPART (*BKC) 100 UNITS/ML 10 UNITS SUB-Q ×2 (11:57→17:19)
[2023-11-23] MEDS: predniSONE 5 MG TABLET PO (12:44)
[2023-11-23] MEDS: CYCLOBENZAPRINE HCL 10 MG TABLET PO ×2 (12:44→21:04)
[2023-11-23] MEDS: traMADol HCL (*CRX) 50 MG TABLET PO ×2 (12:44→17:16)
--- NOTE | 2023-11-23 13:34 | P.PNIM_ITS ---
Progress Note: A&P Assessment and Plan (1) Ground-level fall: Code(s): W18.30XA - Fall on same level, unspecified, initial encounter Status: Acute Assessment and Plan: 11/21/23: * Patient sustained a ground level fall at home * Sacrum/coccyx x-ray was negative for fracture of sacrum or coccyx * Recently was discharged from a rehab facility, currently patient lives alone * PT and OT to eval and treat * Case management consulted for outpatient rehab needs versus residential placement * Continue pain control 11/22/23: * Continue PT and OT * Case management following * No change to current treatment plan 11/23/2023: * Increased Ultram to 50 mg tabs q.4 hours as needed for pain * Will add prednisone 5 mg daily to start now * She does have Tylenol as well for pain control * Patient keeps refusing PT and OT. We stressed that she needs to work with them so we can get her placement for outpatient. (2) Adult failure to thrive: Code(s): R62.7 - Adult failure to thrive Status: Acute Assessment and Plan: 11/21/23: * see above (3) Physical deconditioning: Code(s): R53.81 - Other malaise Status: Acute Assessment and Plan: 11/21/23: * see above (4) Pain, coccyx: Code(s): M53.3 - Sacrococcygeal disorders, not elsewhere classified Status: Acute Assessment and Plan: 11/21/23: * Continue with pain control efforts 11/22/23: * No change to current treatment plan (5) CHF (congestive heart failure): Qualifiers: Heart failure chronicity: chronic Heart failure type: systolic Qualified Code(s): I50.22 - Chronic systolic (congestive) heart failure Code(s): I50.9 - Heart failure, unspecified Status: Chronic Assessment and Plan: 11/21/23: * Combined systolic and diastolic CHF * Last echo on 10/18/23 shown a severely reduced LV systolic function with an estimated EF of 20-25%, grade 1 diastolic dysfunction * Continue Jardiance, spironolactone, and metoprolol 11/22/23: * No change to current treatment plan (6) Anxiety: Code(s): F41.9 - Anxiety disorder, unspecified Status: Chronic Assessment and Plan: 11/21/23: * Continue Xanax 11/22/23: * No change to current treatment plan (7) Diabetes mellitus: Code(s): E11.9 - Type 2 diabetes mellitus without complications Status: Chronic Assessment and Plan: 11/21/23: * Accu checks AC/HS * Last Hgb A1C was 8.0 * Blood glucose 275 * low dose SSI ordered * Meal time insulin ordered * Diabetic diet ordered * Lantus 8 units ordered * Hypoglycemia protocol in place 11/22/23: * Blood sugars ranging 97-157 * No change to current treatment plan (8) Coronary artery disease: Qualifiers: Associated angina: without angina Coronary Disease-Associated Artery/Lesion type: [place] artery [place] vs. transplanted heart: [place] heart Qualified Code(s): I25.10 - Atherosclerotic heart disease of [place] coronary artery without angina pectoris Code(s): I25.10 - Atherosclerotic heart disease of [place] coronary artery without angina pectoris Status: Acute Assessment and Plan: 11/21/23: * Hx of 5v CABG * Continue Plavix 11/22/23: * No change to current treatment plan (9) Depression: Code(s): F32.9 - Major depressive disorder, single episode, unspecified Status: Chronic Assessment and Plan: 11/21/23: * Continue Cymbalta 11/22/23: * No change to current treatment plan
--- NOTE | 2023-11-23 13:34 | PM.IMPN ---
Progress Note: A&P Assessment and Plan (1) Ground-level fall: Code(s): W18.30XA - Fall on same level, unspecified, initial encounter Status: Acute Assessment and Plan: 11/21/23: Patient sustained a ground level fall at home Sacrum/coccyx x-ray was negative for fracture of sacrum or coccyx Recently was discharged from a rehab facility, currently patient lives alone PT and OT to eval and treat Case management consulted for outpatient rehab needs versus shelter placement Continue pain control 11/22/23: Continue PT and OT Case management following No change to current treatment plan 11/23/2023: Increased Ultram to 50 mg tabs q.4 hours as needed for pain Will add prednisone 5 mg daily to start now She does have Tylenol as well for pain control Patient keeps refusing PT and OT. We stressed that she needs to work with them so we can get her placement for outpatient. (2) Adult failure to thrive: Code(s): R62.7 - Adult failure to thrive Status: Acute Assessment and Plan: 11/21/23: see above (3) Physical deconditioning: Code(s): R53.81 - Other malaise Status: Acute Assessment and Plan: 11/21/23: see above (4) Pain, coccyx: Code(s): M53.3 - Sacrococcygeal disorders, not elsewhere classified Status: Acute Assessment and Plan: 11/21/23: Continue with pain control efforts 11/22/23: No change to current treatment plan (5) CHF (congestive heart failure): Qualifiers: Heart failure chronicity: chronic Heart failure type: systolic Qualified Code(s): I50.22 - Chronic systolic (congestive) heart failure Code(s): I50.9 - Heart failure, unspecified Status: Chronic Assessment and Plan: 11/21/23: Combined systolic and diastolic CHF Last echo on 10/18/23 shown a severely reduced LV systolic function with an estimated EF of 20-25%, grade 1 diastolic dysfunction Continue Jardiance, spironolactone, and metoprolol 11/22/23: No change to current treatment plan (6) Anxiety: Code(s): F41.9 - Anxiety disorder, unspecified Status: Chronic Assessment and Plan: 11/21/23: Continue Xanax 11/22/23: No change to current treatment plan (7) Diabetes mellitus: Code(s): E11.9 - Type 2 diabetes mellitus without complications Status: Chronic Assessment and Plan: 11/21/23: Accu checks AC/HS Last Hgb A1C was 8.0 Blood glucose 275 low dose SSI ordered Meal time insulin ordered Diabetic diet ordered Lantus 8 units ordered Hypoglycemia protocol in place 11/22/23: Blood sugars ranging 97-157 No change to current treatment plan (8) Coronary artery disease: Qualifiers: Associated angina: without angina Coronary Disease-Associated Artery/Lesion type: [place] artery [place] vs. transplanted heart: [place] heart Qualified Code(s): I25.10 - Atherosclerotic heart disease of [place] coronary artery without angina pectoris Code(s): I25.10 - Atherosclerotic heart disease of [place] coronary artery without angina pectoris Status: Acute Assessment and Plan: 11/21/23: Hx of 5v CABG Continue Plavix 11/22/23: No change to current treatment plan (9) Depression: Code(s): F32.9 - Major depressive disorder, single episode, unspecified Status: Chronic Assessment and Plan: 11/21/23: Continue Cymbalta 11/22/23: No change to current treatment plan Time Spent With Patient Time with patient: 25 - 35 minutes Subjective Date/time seen: 11/23/23 13:34 Interval history: 10/21/23: This is a 58-year-old female with a significant past medical history anxiety, type 2 diabetes mellitus, coronary artery disease, depression, diabetic peripheral neuropathy, hypercholesterolemia, peripheral artery disease, 5 vessel CABG, hysterectomy, appendectomy, tonsillectomy, BKA on the right, former smoker who presented to the emergency room for evaluation after a ground level
--- NOTE | 2023-11-23 15:30 | PCOTNOTE ---
Attempted to see Patient for OT treatment session. Patient refused, stated she just finished PT session and she can only tolerate 1 therapy a day .
[2023-11-23 17:01] LABS: Glucose Point of Care 142 mg/dl (65-105)
[2023-11-23 22:04] LABS: Glucose Point of Care 110 mg/dl (65-105)
[2023-11-24 05:12] LABS: Basophils Absolute Auto 0.1 K/mm3 (0.0-0.1); Basophils Percent Auto 0.7 % (0.2-1.2); Eosinophils Percent Auto 0.1 % (0-4.4); Hematocrit 37.5 % (37.0-47.0); Hemoglobin 10.7 g/dL (12.0-15.0); Immature Granulocyte Absolute 0.07 K/mm3 (0.00-0.031); Immature Granulocyte Percent A 0.5 % (0-0.5); Lymphocytes Absolute Auto 1.25 K/mm3 (0.9-3.2); Lymphocytes Percent Auto 9.5 % (18.3-44.2); Mean Corpuscular HGB Conc 28.5 g/dl (32-36); Mean Corpuscular Volume 77.2 fl (80-100); Mean Platelet Volume 11.3 fl (7.4-10.4); Monocytes Absolute Auto 1.1 K/mm3 (0.1-0.6); Monocytes Percent Auto 8.7 % (2.6-8.5); Neutrophils Absolute Auto 10.6 K/mm3 (1.3-6.7); Neutrophils Percent Auto 80.5 % (45.5-73.1); Nucleated Red Blood Cells Perc 0.2 % (0.0-0.2); Platelet Count Result 296 k/mm3 (150-375); Red Blood Count 4.86 M/mm3 (4.2-5.4); Red Cell Distribution Width 17.2 % (11.5-14.5); White Blood Count 13.1 K/mm3 (4.5-10.0)
[2023-11-24] MEDS: LEVOTHYROXINE SODIUM 50 MCG TABLET PO (05:47)
[2023-11-24 05:54] VITALS: BP 92/61; PULSE 75; RESP 18; TEMP 36.3; O2SAT 98
[2023-11-24 05:56] LABS: Schistocytes None Seen
[2023-11-24 05:57] LABS: Anisocytosis 1+; Burr Cells 1+; Ovalocytes 1+; Platelet Estimate Adequate (Adequate)
[2023-11-24 07:06] LABS: Alanine Aminotransferase 284 U/L (6-35); Albumin Level 4.2 g/dL (3.5-5.1); Alkaline Phosphatase 155 U/L (38-126); Anion Gap 11 mmol/L (4-12); Bilirubin,Total 1.7 mg/dL (0.2-1.3); Blood Urea Nitrogen 39 mg/dL (7-17); Carbon Dioxide 14 mmol/L (22-30); Chloride 113 mmol/L (98-107); Estimated CRCL calculation 37 ml/min; Estimated Glomerular Filt Rate 31; Glucose 92 mg/dL (65-110); Potassium 5.5 mmol/L (3.4-5.0); Sodium 138 mmol/L (137-145)
[2023-11-24 07:08] LABS: Aspartate Amino Transferase 851 U/L (14-36)
--- NOTE | 2023-11-24 07:55 | P.PNIM_ITS ---
Progress Note: A&P Assessment and Plan (1) Ground-level fall: Code(s): W18.30XA - Fall on same level, unspecified, initial encounter Status: Acute Assessment and Plan: 11/21/23: * Patient sustained a ground level fall at home * Sacrum/coccyx x-ray was negative for fracture of sacrum or coccyx * Recently was discharged from a rehab facility, currently patient lives alone * PT and OT to eval and treat * Case management consulted for outpatient rehab needs versus long-term placement * Continue pain control 11/22/23: * Continue PT and OT * Case management following * No change to current treatment plan 11/23/2023: * Increased Ultram to 50 mg tabs q.4 hours as needed for pain * Will add prednisone 5 mg daily to start now * She does have Tylenol as well for pain control * Patient keeps refusing PT and OT. We stressed that she needs to work with them so we can get her placement for outpatient. 11/24/23: * Continue with pain control efforts * X-ray of lumbar spine showing a new L3 compression fracture * Continue with PT and OT * WBC elevated to 13.1 likely due to starting prednisone yesterday, prednisone DC * Will order a TLSO brace and place ortho consult today (2) Adult failure to thrive: Code(s): R62.7 - Adult failure to thrive Status: Acute Assessment and Plan: 11/21/23: * see above (3) Physical deconditioning: Code(s): R53.81 - Other malaise Status: Acute Assessment and Plan: 11/21/23: * see above (4) Pain, coccyx: Code(s): M53.3 - Sacrococcygeal disorders, not elsewhere classified Status: Acute Assessment and Plan: 11/21/23: * Continue with pain control efforts 11/22/23: * No change to current treatment plan (5) CHF (congestive heart failure): Qualifiers: Heart failure chronicity: chronic Heart failure type: systolic Qualified Code(s): I50.22 - Chronic systolic (congestive) heart failure Code(s): I50.9 - Heart failure, unspecified Status: Chronic Assessment and Plan: 11/21/23: * Combined systolic and diastolic CHF * Last echo on 10/18/23 shown a severely reduced LV systolic function with an estimated EF of 20-25%, grade 1 diastolic dysfunction * Continue Jardiance, spironolactone, and metoprolol 11/22/23: * No change to current treatment plan (6) Anxiety: Code(s): F41.9 - Anxiety disorder, unspecified Status: Chronic Assessment and Plan: 11/21/23: * Continue Xanax 11/22/23: * No change to current treatment plan (7) Diabetes mellitus: Code(s): E11.9 - Type 2 diabetes mellitus without complications Status: Chronic Assessment and Plan: 11/21/23: * Accu checks AC/HS * Last Hgb A1C was 8.0 * Blood glucose 275 * low dose SSI ordered * Meal time insulin ordered * Diabetic diet ordered * Lantus 8 units ordered * Hypoglycemia protocol in place 11/22/23: * Blood sugars ranging 97-157 * No change to current treatment plan (8) Coronary artery disease: Qualifiers: Associated angina: without angina Coronary Disease-Associated Artery/Lesion type: [place] artery [place] vs. transplanted heart: [place] heart Qualified Code(s): I25.10 - Atherosclerotic heart disease of [place] coronary artery without angina pectoris Code(s): I25.10 - Atherosclerotic heart disease of [place] coronary artery without angina pectoris Status: Acute Assessment and Plan: 11/21/23: * Hx of 5v CABG * Continue Plavix 11/22/23:
--- NOTE | 2023-11-24 07:55 | PM.IMPN ---
Progress Note: A&P Assessment and Plan (1) Ground-level fall: Code(s): W18.30XA - Fall on same level, unspecified, initial encounter Status: Acute Assessment and Plan: 11/21/23: Patient sustained a ground level fall at home Sacrum/coccyx x-ray was negative for fracture of sacrum or coccyx Recently was discharged from a rehab facility, currently patient lives alone PT and OT to eval and treat Case management consulted for outpatient rehab needs versus half-way placement Continue pain control 11/22/23: Continue PT and OT Case management following No change to current treatment plan 11/23/2023: Increased Ultram to 50 mg tabs q.4 hours as needed for pain Will add prednisone 5 mg daily to start now She does have Tylenol as well for pain control Patient keeps refusing PT and OT. We stressed that she needs to work with them so we can get her placement for outpatient. 11/24/23: Continue with pain control efforts X-ray of lumbar spine showing a new L3 compression fracture Continue with PT and OT WBC elevated to 13.1 likely due to starting prednisone yesterday, prednisone DC Will order a TLSO brace and place ortho consult today (2) Adult failure to thrive: Code(s): R62.7 - Adult failure to thrive Status: Acute Assessment and Plan: 11/21/23: see above (3) Physical deconditioning: Code(s): R53.81 - Other malaise Status: Acute Assessment and Plan: 11/21/23: see above (4) Pain, coccyx: Code(s): M53.3 - Sacrococcygeal disorders, not elsewhere classified Status: Acute Assessment and Plan: 11/21/23: Continue with pain control efforts 11/22/23: No change to current treatment plan (5) CHF (congestive heart failure): Qualifiers: Heart failure chronicity: chronic Heart failure type: systolic Qualified Code(s): I50.22 - Chronic systolic (congestive) heart failure Code(s): I50.9 - Heart failure, unspecified Status: Chronic Assessment and Plan: 11/21/23: Combined systolic and diastolic CHF Last echo on 10/18/23 shown a severely reduced LV systolic function with an estimated EF of 20-25%, grade 1 diastolic dysfunction Continue Jardiance, spironolactone, and metoprolol 11/22/23: No change to current treatment plan (6) Anxiety: Code(s): F41.9 - Anxiety disorder, unspecified Status: Chronic Assessment and Plan: 11/21/23: Continue Xanax 11/22/23: No change to current treatment plan (7) Diabetes mellitus: Code(s): E11.9 - Type 2 diabetes mellitus without complications Status: Chronic Assessment and Plan: 11/21/23: Accu checks AC/HS Last Hgb A1C was 8.0 Blood glucose 275 low dose SSI ordered Meal time insulin ordered Diabetic diet ordered Lantus 8 units ordered Hypoglycemia protocol in place 11/22/23: Blood sugars ranging 97-157 No change to current treatment plan (8) Coronary artery disease: Qualifiers: Associated angina: without angina Coronary Disease-Associated Artery/Lesion type: [place] artery [place] vs. transplanted heart: [place] heart Qualified Code(s): I25.10 - Atherosclerotic heart disease of [place] coronary artery without angina pectoris Code(s): I25.10 - Atherosclerotic heart disease of [place] coronary artery without angina pectoris Status: Acute Assessment and Plan: 11/21/23: Hx of 5v CABG Continue Plavix 11/22/23: No change to current treatment plan (9) Depression: Code(s): F32.9 - Major depressive disorder, single episode, unspecified Status: Chronic Assessment and Plan: 11/21/23: Continue Cymbalta 11/22/23: No change to current treatment plan (10) Total bilirubin, elevated: Code(s): R17 - Unspecified jaundice Status: Acute Assessment and Plan: 11/24/23: total bilirubin 1.7 Hepatitis panel was negative Ultrasound of the liver was negative CT of the abdomen/pel
[2023-11-24 08:00] VITALS: PULSE 75; RESP 18; O2SAT 98
[2023-11-24 08:31] LABS: Glucose Point of Care 114 mg/dl (65-105)
[2023-11-24 09:35] LABS: Creatine Kinase 156 U/L (30-135)
--- NOTE | 2023-11-24 09:44 | PC.NURSE ---
pt to radiology via stretcher
[2023-11-24 09:47] LABS: Hepatitis B Surface Antigen Negative (Negative)
[2023-11-24 09:53] LABS: HAV RESULT Negative (Negative); Hepatitis B Core IgM Result Negative (Negative)
[2023-11-24 10:05] LABS: Hepatitis C Virus Antibody Negative (Negative)
--- NOTE | 2023-11-24 10:48 | PC.NURSE ---
pt returned from radiology, she is refusing to eat or take meds at this time, she is only wanting ice chips
[2023-11-24 12:14] LABS: Glucose Point of Care 115 mg/dl (65-105)
--- NOTE | 2023-11-24 12:59 | PM.CNOR ---
Assessment and Plan Assessment and plan (1) Compression fracture of L3 vertebra: Code(s): S32.030A - [place] compression fracture of third lumbar vertebra, initial encounter for closed fracture Status: Acute (2) Lumbar spondylosis: Code(s): M47.816 - Spondylosis without myelopathy or radiculopathy, lumbar region Status: Acute Plan 58 y/o female patient. Past medical history notable for below the knee amputation on the right, Diabetes, Charcot joint in the left foot, COPD, CAD, PAD, sleep apnea. Admitted to the hospital for failure to thrive. She was found to have an acute L3 compression fracture. She has a history of vertebroplasty at L1. She has chronic burst fractures at L1-L2. Mild spondylosis and mild to moderate multilevel facet joint arthritis. Patient states she has had pain for 1 month. She does not recall falling. I recommend a TLSO brace. She may follow up in office in 1 month. Continue PT/OT. Patient may need SNF/Rehab at discharge. Thank you for the consultation. History of Present Illness HPI Consult date: 11/24/23 Chief complaint: Compression fracture Narrative: Patient resting comfortably at the time of my visit. Complains of back pain. She states she has had the pain for the last month. She states she does not walk. She uses a wheelchair. She lives at home by herself. She has a below the knee amputation. Admitted to the hospital for failure to thrive. She was found to have an acute L3 compression fracture. She has a history of vertebroplasty at L1. No other complaints at this time. Review of Systems Review of Systems: All systems reviewed & are unremarkable except as noted in HPI and below [facility] Past Medical History Medical History Anxiety Charcot's joint of foot in type 2 diabetes mellitus Of the right foot Chronic obstructive pulmonary disease Coronary artery disease Left anterior descending stent 01/2019. 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 Peripheral vascular disease due to secondary diabetes Serotonin syndrome Suspected sleep apnea AHI 35 on apnea link on 06/16/2022. Surgical History Surgical History History of appendectomy History of section x3 History of hysterectomy Partial, ovaries retained. Due to cervical changes. History of tonsillectomy and adenoidectomy History of vertebroplasty Hx of BKA Right 11/19/20 at [facility] S/P CABG x 5 w/MVR and left atrial appendage ligation Status post cholecystectomy Stented coronary artery X1 Family History Family History Sibling Diabetes mellitus Mother Heart failure Cardiomegaly Arthritis Atrial fibrillation Family history of osteoporosis Family history of Alzheimer's disease Hypertension Cardiomyopathy Acute myocardial infarction History of heart artery stent Congestive heart failure Daughter Anxiety Father Esophagus cancer Cancer of spinal column Social History Social History Social History: The patient is . The patient had 4 children and 1 of her daughters is now. She is disabled. She is a former smoker. She denies any alcohol marijuana or illicit drugs. Primarily wheelchair-bound. Surrogate medical decision maker: Jass Arciniega, son. Code status: Full code. Smoking packs per day: 1.5 Smoking cigarettes per day: 30.0 Years smoked
[2023-11-24 13:15] VITALS: O2SAT 97
--- NOTE | 2023-11-24 13:57 | PC.NURSE ---
pt continues to refuse any lunch and PO meds, pt encouraged but states not right now
[2023-11-24 14:00] VITALS: BP 121/59; PULSE 76; RESP 18; TEMP 36.5; O2SAT 98
--- NOTE | 2023-11-24 15:20 | PC.NURSE ---
[employer] here to get TSLO brace on pt, she is refusing to wear brace and will not even try it on, she states she has had a brace before and does not want to wear another one, she kept eyes closed throughout most of conversation
[2023-11-24 17:44] LABS: Glucose Point of Care 126 mg/dl (65-105)
[2023-11-24] MEDS: ONDANSETRON INJ 4 MG/2 ML VIAL IV PUSH (18:21)
--- NOTE | 2023-11-24 19:40 | PC.NURSE ---
pt refused PO intake today except for ice chips, refused meds, bladder scan 370mls, encouraged to drink
[2023-11-24] MEDS: APIXABAN 5 MG TABLET PO (20:16)
[2023-11-24] MEDS: PREGABALIN (*CRX) 50 MG CAPSULE PO (20:16)
[2023-11-24 21:10] LABS: Glucose Point of Care 128 mg/dl (65-105)
[2023-11-24 21:47] VITALS: BP 106/53; PULSE 76; RESP 18; TEMP 36.4; O2SAT 100
[2023-11-24] MEDS: MORPHINE SULFATE (*CRX) 2 MG/ML INJ IV PUSH (22:19)
[2023-11-25] MEDS: LEVOTHYROXINE SODIUM 50 MCG TABLET PO (05:23)
[2023-11-25 05:48] LABS: Appearance Urine Clear (Clear); Bacteria Urine Rare /hpf; Bilirubin Urine Negative (Negative); Blood Urine Non-Hemolyzed Trace (Negative); Color Urine Dark Yellow (Yellow); Glucose Urine UA 3+ mg/dL (Negative); Ketones Urine Trace mg/dL (Negative); Leukocyte Esterase Ur Negative LEU/UL (Negative); Nitrate Urine Negative (Negative); Protein Urine 1+ mg/dL (Negative); RBC Urine 0-2 /hpf (0-2); Squamous Epithelial Cell Urine None Seen /hpf (Few)
[2023-11-25 05:49] LABS: Add Urine Microscopic? YES; Specific Grav Ur 1.039 (1.001-1.035)
[2023-11-25 06:00] VITALS: BP 126/68; PULSE 154; RESP 18; TEMP 36.3; O2SAT 100
[2023-11-25 06:26] LABS: Basophils Absolute Auto 0.1 K/mm3 (0.0-0.1); Basophils Percent Auto 0.9 % (0.2-1.2); Eosinophils Absolute Auto 0.1 K/mm3 (0-0.3); Eosinophils Percent Auto 0.8 % (0-4.4); Hematocrit 36.1 % (37.0-47.0); Hemoglobin 10.1 g/dL (12.0-15.0); Immature Granulocyte Absolute 0.07 K/mm3 (0.00-0.031); Immature Granulocyte Percent A 0.8 % (0-0.5); Lymphocytes Absolute Auto 1.19 K/mm3 (0.9-3.2); Lymphocytes Percent Auto 13.2 % (18.3-44.2); Mean Corpuscular Volume 78.5 fl (80-100); Mean Platelet Volume 11.2 fl (7.4-10.4); Monocytes Absolute Auto 0.6 K/mm3 (0.1-0.6); Monocytes Percent Auto 7.1 % (2.6-8.5); Neutrophils Percent Auto 77.2 % (45.5-73.1); Nucleated Red Blood Cells Perc 0.2 % (0.0-0.2); Platelet Count Result 200 k/mm3 (150-375); Red Cell Distribution Width 17.3 % (11.5-14.5)
[2023-11-25 06:48] LABS: Alanine Aminotransferase 472 U/L (6-35); Albumin Level 4.2 g/dL (3.5-5.1); Alkaline Phosphatase 142 U/L (38-126); Anion Gap 14 mmol/L (4-12); Bilirubin,Total 1.2 mg/dL (0.2-1.3); Blood Urea Nitrogen 47 mg/dL (7-17); Carbon Dioxide 14 mmol/L (22-30); Chloride 113 mmol/L (98-107); Estimated CRCL calculation 42 ml/min; Estimated Glomerular Filt Rate 35; Glucose 115 mg/dL (65-110); Potassium 5.2 mmol/L (3.4-5.0); Sodium 141 mmol/L (137-145)
[2023-11-25 07:23] LABS: Anisocytosis 1+; Platelet Estimate Adequate (Adequate)
[2023-11-25 07:24] LABS: Burr Cells 1+; Ovalocytes 1+; Schistocytes Rare
[2023-11-25 07:28] LABS: Aspartate Amino Transferase 763 U/L (14-36)
--- NOTE | 2023-11-25 07:54 | P.PNIM_ITS ---
Progress Note: A&P Assessment and Plan (1) Ground-level fall: Code(s): W18.30XA - Fall on same level, unspecified, initial encounter Status: Acute Assessment and Plan: 11/21/23: * Patient sustained a ground level fall at home * Sacrum/coccyx x-ray was negative for fracture of sacrum or coccyx * Recently was discharged from a rehab facility, currently patient lives alone * PT and OT to eval and treat * Case management consulted for outpatient rehab needs versus fdc placement * Continue pain control 11/22/23: * Continue PT and OT * Case management following * No change to current treatment plan 11/23/2023: * Increased Ultram to 50 mg tabs q.4 hours as needed for pain * Will add prednisone 5 mg daily to start now * She does have Tylenol as well for pain control * Patient keeps refusing PT and OT. We stressed that she needs to work with them so we can get her placement for outpatient. 11/24/23: * Continue with pain control efforts * X-ray of lumbar spine showing a new L3 compression fracture * Continue with PT and OT * WBC elevated to 13.1 likely due to starting prednisone yesterday, prednisone DC * Will order a TLSO brace and place ortho consult today 11/25/23: * Ortho consulted and recommending management with TLSO * Continue PT and OT * Continue with TLSO brace * Case coordination following (2) Adult failure to thrive: Code(s): R62.7 - Adult failure to thrive Status: Acute Assessment and Plan: 11/21/23: * see above (3) Physical deconditioning: Code(s): R53.81 - Other malaise Status: Acute Assessment and Plan: 11/21/23: * see above (4) Pain, coccyx: Code(s): M53.3 - Sacrococcygeal disorders, not elsewhere classified Status: Acute Assessment and Plan: 11/21/23: * Continue with pain control efforts 11/22/23: * No change to current treatment plan (5) CHF (congestive heart failure): Qualifiers: Heart failure chronicity: chronic Heart failure type: systolic Qualified Code(s): I50.22 - Chronic systolic (congestive) heart failure Code(s): I50.9 - Heart failure, unspecified Status: Chronic Assessment and Plan: 11/21/23: * Combined systolic and diastolic CHF * Last echo on 10/18/23 shown a severely reduced LV systolic function with an estimated EF of 20-25%, grade 1 diastolic dysfunction * Continue Jardiance, spironolactone, and metoprolol 11/22/23: * No change to current treatment plan (6) Anxiety: Code(s): F41.9 - Anxiety disorder, unspecified Status: Chronic Assessment and Plan: 11/21/23: * Continue Xanax 11/22/23: * No change to current treatment plan (7) Diabetes mellitus: Code(s): E11.9 - Type 2 diabetes mellitus without complications Status: Chronic Assessment and Plan: 11/21/23: * Accu checks AC/HS * Last Hgb A1C was 8.0 * Blood glucose 275 * low dose SSI ordered * Meal time insulin ordered * Diabetic diet ordered * Lantus 8 units ordered * Hypoglycemia protocol in place 11/22/23: * Blood sugars ranging 97-157 * No change to current treatment plan (8) Coronary artery disease: Qualifiers: Associated angina: without angina Coronary Disease-Associated Artery/Lesion type: [place] artery [place] vs. transplanted heart: [place] heart Qualified Code(s): I25.10 - Atherosclerotic heart disease of [place] coronary artery without angina pectoris Code(s): I25.10 - Atherosclerotic heart disease of [place] coron
--- NOTE | 2023-11-25 07:54 | PM.IMPN ---
Progress Note: A&P Assessment and Plan (1) Ground-level fall: Code(s): W18.30XA - Fall on same level, unspecified, initial encounter Status: Acute Assessment and Plan: 11/21/23: Patient sustained a ground level fall at home Sacrum/coccyx x-ray was negative for fracture of sacrum or coccyx Recently was discharged from a rehab facility, currently patient lives alone PT and OT to eval and treat Case management consulted for outpatient rehab needs versus fdc placement Continue pain control 11/22/23: Continue PT and OT Case management following No change to current treatment plan 11/23/2023: Increased Ultram to 50 mg tabs q.4 hours as needed for pain Will add prednisone 5 mg daily to start now She does have Tylenol as well for pain control Patient keeps refusing PT and OT. We stressed that she needs to work with them so we can get her placement for outpatient. 11/24/23: Continue with pain control efforts X-ray of lumbar spine showing a new L3 compression fracture Continue with PT and OT WBC elevated to 13.1 likely due to starting prednisone yesterday, prednisone DC Will order a TLSO brace and place ortho consult today 11/25/23: Ortho consulted and recommending management with TLSO Continue PT and OT Continue with TLSO brace Case coordination following (2) Adult failure to thrive: Code(s): R62.7 - Adult failure to thrive Status: Acute Assessment and Plan: 11/21/23: see above (3) Physical deconditioning: Code(s): R53.81 - Other malaise Status: Acute Assessment and Plan: 11/21/23: see above (4) Pain, coccyx: Code(s): M53.3 - Sacrococcygeal disorders, not elsewhere classified Status: Acute Assessment and Plan: 11/21/23: Continue with pain control efforts 11/22/23: No change to current treatment plan (5) CHF (congestive heart failure): Qualifiers: Heart failure chronicity: chronic Heart failure type: systolic Qualified Code(s): I50.22 - Chronic systolic (congestive) heart failure Code(s): I50.9 - Heart failure, unspecified Status: Chronic Assessment and Plan: 11/21/23: Combined systolic and diastolic CHF Last echo on 10/18/23 shown a severely reduced LV systolic function with an estimated EF of 20-25%, grade 1 diastolic dysfunction Continue Jardiance, spironolactone, and metoprolol 11/22/23: No change to current treatment plan (6) Anxiety: Code(s): F41.9 - Anxiety disorder, unspecified Status: Chronic Assessment and Plan: 11/21/23: Continue Xanax 11/22/23: No change to current treatment plan (7) Diabetes mellitus: Code(s): E11.9 - Type 2 diabetes mellitus without complications Status: Chronic Assessment and Plan: 11/21/23: Accu checks AC/HS Last Hgb A1C was 8.0 Blood glucose 275 low dose SSI ordered Meal time insulin ordered Diabetic diet ordered Lantus 8 units ordered Hypoglycemia protocol in place 11/22/23: Blood sugars ranging 97-157 No change to current treatment plan (8) Coronary artery disease: Qualifiers: Associated angina: without angina Coronary Disease-Associated Artery/Lesion type: [place] artery [place] vs. transplanted heart: [place] heart Qualified Code(s): I25.10 - Atherosclerotic heart disease of [place] coronary artery without angina pectoris Code(s): I25.10 - Atherosclerotic heart disease of [place] coronary artery without angina pectoris Status: Acute Assessment and Plan: 11/21/23: Hx of 5v CABG Continue Plavix 11/22/23: No change to current treatment plan (9) Depression: Code(s): F32.9 - Major depressive disorder, single episode, unspecified Status: Chronic Assessment and Plan: 11/21/23: Continue Cymbalta 11/22/23: No change to current treatment plan (10) Total bilirubin, elevated: Code(s): R17 - Unspecified jaundice Status: Acute A
[2023-11-25 07:56] VITALS: BP 105/55; PULSE 73; RESP 16; O2SAT 99
[2023-11-25 08:17] LABS: Glucose Point of Care 113 mg/dl (65-105)
[2023-11-25] MEDS: SODIUM CHLORIDE 0.9% IV 500 ML IV CONT (08:41)
[2023-11-25] MEDS: SODIUM CHLORIDE 0.9% IV 1,000 ML 100 ML IV CONT ×2 (09:45→17:50)
--- NOTE | 2023-11-25 10:02 | PC.NURSE ---
pt refusing morning medications at this time, she requests to take them with lunch, denies nausea, but is not wanting meds at this time
[2023-11-25 12:21] LABS: Glucose Point of Care 102 mg/dl (65-105)
[2023-11-25] MEDS: INSULIN GLARGINE (*BKC) 100 UNITS/ML 8 UNITS SUB-Q (13:05)
[2023-11-25 13:06] VITALS: PULSE 74
[2023-11-25] MEDS: AMIODARONE HCL 200 MG TABLET 400 MG PO (13:06)
[2023-11-25] MEDS: EMPAGLIFLOZIN 25 MG TABLET PO (13:06)
[2023-11-25] MEDS: DULoxetine HCL 60 MG CAPSULE.DR PO (13:06)
[2023-11-25] MEDS: CLOPIDOGREL BISULFATE 75 MG TABLET PO (13:06)
[2023-11-25] MEDS: PREGABALIN (*CRX) 50 MG CAPSULE PO ×2 (13:07→19:39)
[2023-11-25] MEDS: APIXABAN 5 MG TABLET PO ×2 (13:07→19:39)
[2023-11-25 14:00] VITALS: BP 108/62; PULSE 76; RESP 19; TEMP 36.5; O2SAT 98
[2023-11-25 17:36] LABS: Glucose Point of Care 168 mg/dl (65-105)
[2023-11-25 19:32] VITALS: O2SAT 98
[2023-11-25] MEDS: MORPHINE SULFATE (*CRX) 2 MG/ML INJ IV PUSH (19:39)
[2023-11-25 20:20] LABS: Glucose Point of Care 172 mg/dl (65-105)
[2023-11-25 21:18] VITALS: BP 102/51; PULSE 77; RESP 20; TEMP 36.3; O2SAT 100
[2023-11-25] MEDS: ALPRAZolam (*CRX) 0.5 MG TABLET PO (22:06)
[2023-11-25] MEDS: CYCLOBENZAPRINE HCL 10 MG TABLET PO (22:06)
[2023-11-26] VITALS (8 sets, daily range): BP systolic 105–112; BP diastolic 58–64; PULSE 75–90; RESP 16–20; TEMP 36.6–36.8; O2SAT 97–99
[2023-11-26] MEDS: SODIUM CHLORIDE 0.9% IV 1,000 ML 100 ML IV CONT ×2 (04:29→14:31)
[2023-11-26] MEDS: LEVOTHYROXINE SODIUM 50 MCG TABLET PO (04:58)
[2023-11-26] MEDS: MORPHINE SULFATE (*CRX) 2 MG/ML INJ IV PUSH ×3 (05:00→14:31)
[2023-11-26 05:21] LABS: Alanine Aminotransferase 323 U/L (6-35); Albumin Level 3.7 g/dL (3.5-5.1); Alkaline Phosphatase 120 U/L (38-126); Anion Gap 3 mmol/L (4-12); Aspartate Amino Transferase 291 U/L (14-36); Blood Urea Nitrogen 37 mg/dL (7-17); Calcium 8.4 mg/dL (8.4-10.2); Carbon Dioxide 23 mmol/L (22-30); Chloride 111 mmol/L (98-107); Estimated CRCL calculation 57 ml/min; Estimated Glomerular Filt Rate 51; Glucose 119 mg/dL (65-110); Potassium 4.8 mmol/L (3.4-5.0); Sodium 137 mmol/L (137-145)
[2023-11-26 07:08] LABS: Basophils Absolute Auto 0.1 K/mm3 (0.0-0.1); Basophils Percent Auto 0.7 % (0.2-1.2); Eosinophils Absolute Auto 0.1 K/mm3 (0-0.3); Eosinophils Percent Auto 1.5 % (0-4.4); Hematocrit 33.9 % (37.0-47.0); Hemoglobin 9.7 g/dL (12.0-15.0); Immature Granulocyte Absolute 0.04 K/mm3 (0.00-0.031); Immature Granulocyte Percent A 0.5 % (0-0.5); Lymphocytes Absolute Auto 1.06 K/mm3 (0.9-3.2); Lymphocytes Percent Auto 14.4 % (18.3-44.2); Mean Corpuscular HGB Conc 28.6 g/dl (32-36); Mean Corpuscular Hemoglobin 22.2 pg (26-34); Mean Corpuscular Volume 77.6 fl (80-100); Mean Platelet Volume 11.6 fl (7.4-10.4); Monocytes Absolute Auto 0.6 K/mm3 (0.1-0.6); Monocytes Percent Auto 8.2 % (2.6-8.5); Neutrophils Absolute Auto 5.5 K/mm3 (1.3-6.7); Neutrophils Percent Auto 74.7 % (45.5-73.1); Platelet Count Result 185 k/mm3 (150-375); Red Blood Count 4.37 M/mm3 (4.2-5.4); Red Cell Distribution Width 17.3 % (11.5-14.5); White Blood Count 7.3 K/mm3 (4.5-10.0)
[2023-11-26 07:37] LABS: Anisocytosis 1+; Hypochromasia 1+; Ovalocytes 1+
[2023-11-26 08:04] LABS: Schistocytes None Seen
[2023-11-26 08:05] LABS: Platelet Estimate Adequate (Adequate)
[2023-11-26] MEDS: CLOPIDOGREL BISULFATE 75 MG TABLET PO (08:41)
[2023-11-26] MEDS: EMPAGLIFLOZIN 25 MG TABLET PO (08:41)
[2023-11-26] MEDS: DOCUSATE SODIUM 100 MG CAPSULE PO (08:41)
[2023-11-26] MEDS: APIXABAN 5 MG TABLET PO ×2 (08:41→20:26)
[2023-11-26] MEDS: PREGABALIN (*CRX) 50 MG CAPSULE PO ×2 (08:42→20:26)
[2023-11-26] MEDS: METOPROLOL SUCCINATE EXT REL 12.5 MG TABCR PO (08:42)
[2023-11-26] MEDS: DULoxetine HCL 60 MG CAPSULE.DR PO (08:42)
[2023-11-26] MEDS: AMIODARONE HCL 200 MG TABLET 400 MG PO (08:42)
[2023-11-26 08:57] LABS: Glucose Point of Care 93 mg/dl (65-105)
--- NOTE | 2023-11-26 11:50 | PC.NURSE ---
Addendum entered by Kimi Jeter RN 11/26/23 11:52: Spoke with Naresh with [facility], he stated that patient refused brace when they attempted to bring it Original Note: Patient does not have TLSO brace in room yet. Reaching out to Naresh at [facility] to see how we can get the brace.
[2023-11-26 12:43] LABS: Glucose Point of Care 130 mg/dl (65-105)
[2023-11-26] MEDS: INSULIN GLARGINE (*BKC) 100 UNITS/ML 8 UNITS SUB-Q (13:12)
--- NOTE | 2023-11-26 15:58 | P.PNIM_ITS ---
Progress Note: A&P Assessment and Plan (1) Ground-level fall: Code(s): W18.30XA - Fall on same level, unspecified, initial encounter Status: Acute Assessment and Plan: 11/21/23: * Patient sustained a ground level fall at home * Sacrum/coccyx x-ray was negative for fracture of sacrum or coccyx * Recently was discharged from a rehab facility, currently patient lives alone * PT and OT to eval and treat * Case management consulted for outpatient rehab needs versus care home placement * Continue pain control 11/22/23: * Continue PT and OT * Case management following * No change to current treatment plan 11/23/2023: * Increased Ultram to 50 mg tabs q.4 hours as needed for pain * Will add prednisone 5 mg daily to start now * She does have Tylenol as well for pain control * Patient keeps refusing PT and OT. We stressed that she needs to work with them so we can get her placement for outpatient. 11/24/23: * Continue with pain control efforts * X-ray of lumbar spine showing a new L3 compression fracture * Continue with PT and OT * WBC elevated to 13.1 likely due to starting prednisone yesterday, prednisone DC * Will order a TLSO brace and place ortho consult today 11/25/23: * Ortho consulted and recommending management with TLSO * Continue PT and OT * Continue with TLSO brace * Case coordination following 11/26/23: * PT and OT work with patient today and is recommending SNF placement * Case management notified (2) Adult failure to thrive: Code(s): R62.7 - Adult failure to thrive Status: Acute Assessment and Plan: 11/21/23: * see above (3) Physical deconditioning: Code(s): R53.81 - Other malaise Status: Acute Assessment and Plan: 11/21/23: * see above (4) Pain, coccyx: Code(s): M53.3 - Sacrococcygeal disorders, not elsewhere classified Status: Acute Assessment and Plan: 11/21/23: * Continue with pain control efforts 11/22/23: * No change to current treatment plan (5) CHF (congestive heart failure): Qualifiers: Heart failure chronicity: chronic Heart failure type: systolic Qualified Code(s): I50.22 - Chronic systolic (congestive) heart failure Code(s): I50.9 - Heart failure, unspecified Status: Chronic Assessment and Plan: 11/21/23: * Combined systolic and diastolic CHF * Last echo on 10/18/23 shown a severely reduced LV systolic function with an e stimated EF of 20-25%, grade 1 diastolic dysfunction * Continue Jardiance, spironolactone, and metoprolol 11/22/23: * No change to current treatment plan (6) Anxiety: Code(s): F41.9 - Anxiety disorder, unspecified Status: Chronic Assessment and Plan: 11/21/23: * Continue Xanax 11/22/23: * No change to current treatment plan (7) Diabetes mellitus: Code(s): E11.9 - Type 2 diabetes mellitus without complications Status: Chronic Assessment and Plan: 11/21/23: * Accu checks AC/HS * Last Hgb A1C was 8.0 * Blood glucose 275 * low dose SSI ordered * Meal time insulin ordered * Diabetic diet ordered * Lantus 8 units ordered * Hypoglycemia protocol in place 11/22/23: * Blood sugars ranging 97-157 * No change to current treatment plan (8) Coronary artery disease: Qualifiers: Associated angina: without angina Coronary Disease-Associated Artery/Lesion type: [place] artery [place] vs. transplanted heart: [place] heart Qualified Code(s): I25.10 - Atherosclerotic heart disease of [place]
--- NOTE | 2023-11-26 15:58 | PM.IMPN ---
Progress Note: A&P Assessment and Plan (1) Ground-level fall: Code(s): W18.30XA - Fall on same level, unspecified, initial encounter Status: Acute Assessment and Plan: 11/21/23: Patient sustained a ground level fall at home Sacrum/coccyx x-ray was negative for fracture of sacrum or coccyx Recently was discharged from a rehab facility, currently patient lives alone PT and OT to eval and treat Case management consulted for outpatient rehab needs versus correction placement Continue pain control 11/22/23: Continue PT and OT Case management following No change to current treatment plan 11/23/2023: Increased Ultram to 50 mg tabs q.4 hours as needed for pain Will add prednisone 5 mg daily to start now She does have Tylenol as well for pain control Patient keeps refusing PT and OT. We stressed that she needs to work with them so we can get her placement for outpatient. 11/24/23: Continue with pain control efforts X-ray of lumbar spine showing a new L3 compression fracture Continue with PT and OT WBC elevated to 13.1 likely due to starting prednisone yesterday, prednisone DC Will order a TLSO brace and place ortho consult today 11/25/23: Ortho consulted and recommending management with TLSO Continue PT and OT Continue with TLSO brace Case coordination following 11/26/23: PT and OT work with patient today and is recommending SNF placement Case management notified (2) Adult failure to thrive: Code(s): R62.7 - Adult failure to thrive Status: Acute Assessment and Plan: 11/21/23: see above (3) Physical deconditioning: Code(s): R53.81 - Other malaise Status: Acute Assessment and Plan: 11/21/23: see above (4) Pain, coccyx: Code(s): M53.3 - Sacrococcygeal disorders, not elsewhere classified Status: Acute Assessment and Plan: 11/21/23: Continue with pain control efforts 11/22/23: No change to current treatment plan (5) CHF (congestive heart failure): Qualifiers: Heart failure chronicity: chronic Heart failure type: systolic Qualified Code(s): I50.22 - Chronic systolic (congestive) heart failure Code(s): I50.9 - Heart failure, unspecified Status: Chronic Assessment and Plan: 11/21/23: Combined systolic and diastolic CHF Last echo on 10/18/23 shown a severely reduced LV systolic function with an estimated EF of 20-25%, grade 1 diastolic dysfunction Continue Jardiance, spironolactone, and metoprolol 11/22/23: No change to current treatment plan (6) Anxiety: Code(s): F41.9 - Anxiety disorder, unspecified Status: Chronic Assessment and Plan: 11/21/23: Continue Xanax 11/22/23: No change to current treatment plan (7) Diabetes mellitus: Code(s): E11.9 - Type 2 diabetes mellitus without complications Status: Chronic Assessment and Plan: 11/21/23: Accu checks AC/HS Last Hgb A1C was 8.0 Blood glucose 275 low dose SSI ordered Meal time insulin ordered Diabetic diet ordered Lantus 8 units ordered Hypoglycemia protocol in place 11/22/23: Blood sugars ranging 97-157 No change to current treatment plan (8) Coronary artery disease: Qualifiers: Associated angina: without angina Coronary Disease-Associated Artery/Lesion type: [place] artery [place] vs. transplanted heart: [place] heart Qualified Code(s): I25.10 - Atherosclerotic heart disease of [place] coronary artery without angina pectoris Code(s): I25.10 - Atherosclerotic heart disease of [place] coronary artery without angina pectoris Status: Acute Assessment and Plan: 11/21/23: Hx of 5v CABG Continue Plavix 11/22/23: No change to current treatment plan (9) Depression: Code(s): F32.9 - Major depressive disorder, single episode, unspecified Status: Chronic Assessment and Plan: 11/21/23: Continue Cymbalta 11/22/23: No change to current treatment simeon
[2023-11-26 17:33] LABS: Glucose Point of Care 119 mg/dl (65-105)
[2023-11-26 19:53] LABS: Glucose Point of Care 127 mg/dl (65-105)
[2023-11-27] VITALS (8 sets, daily range): BP systolic 100–112; BP diastolic 52–67; PULSE 66–75; RESP 16; TEMP 36.3–37.1; O2SAT 98–100
[2023-11-27] MEDS: SODIUM CHLORIDE 0.9% IV 1,000 ML 100 ML IV CONT (00:15)
[2023-11-27] MEDS: CYCLOBENZAPRINE HCL 10 MG TABLET PO (01:59)
[2023-11-27] MEDS: LEVOTHYROXINE SODIUM 50 MCG TABLET PO (04:47)
[2023-11-27] MEDS: ALPRAZolam (*CRX) 0.5 MG TABLET PO (04:47)
[2023-11-27 05:46] LABS: Alanine Aminotransferase 240 U/L (6-35); Albumin Level 3.5 g/dL (3.5-5.1); Alkaline Phosphatase 118 U/L (38-126); Anion Gap 7 mmol/L (4-12); Aspartate Amino Transferase 159 U/L (14-36); Bilirubin,Total 0.9 mg/dL (0.2-1.3); Blood Urea Nitrogen 29 mg/dL (7-17); Carbon Dioxide 15 mmol/L (22-30); Chloride 114 mmol/L (98-107); Estimated CRCL calculation 68 ml/min; Estimated Glomerular Filt Rate > 60; Glucose 115 mg/dL (65-110); Potassium 4.4 mmol/L (3.4-5.0); Sodium 136 mmol/L (137-145)
[2023-11-27 05:54] LABS: Basophils Absolute Auto 0.1 K/mm3 (0.0-0.1); Eosinophils Absolute Auto 0.1 K/mm3 (0-0.3); Eosinophils Percent Auto 1.2 % (0-4.4); Hematocrit 35.1 % (37.0-47.0); Hemoglobin 9.6 g/dL (12.0-15.0); Immature Granulocyte Absolute 0.02 K/mm3 (0.00-0.031); Immature Granulocyte Percent A 0.3 % (0-0.5); Lymphocytes Absolute Auto 0.89 K/mm3 (0.9-3.2); Mean Corpuscular HGB Conc 27.4 g/dl (32-36); Mean Corpuscular Hemoglobin 22.3 pg (26-34); Mean Corpuscular Volume 81.4 fl (80-100); Mean Platelet Volume 11.3 fl (7.4-10.4); Monocytes Absolute Auto 0.6 K/mm3 (0.1-0.6); Monocytes Percent Auto 8.1 % (2.6-8.5); Neutrophils Absolute Auto 5.2 K/mm3 (1.3-6.7); Neutrophils Percent Auto 76.4 % (45.5-73.1); Platelet Count Result 162 k/mm3 (150-375); Red Blood Count 4.31 M/mm3 (4.2-5.4); Red Cell Distribution Width 17.2 % (11.5-14.5); White Blood Count 6.8 K/mm3 (4.5-10.0)
[2023-11-27 07:26] LABS: Hypochromasia 1+; Platelet Estimate Adequate (Adequate); Schistocytes None Seen
[2023-11-27 07:27] LABS: Ovalocytes 1+; Poikilocytosis 1+
[2023-11-27 07:28] LABS: Anisocytosis 1+; Burr Cells 1+
[2023-11-27 08:14] LABS: Glucose Point of Care 100 mg/dl (65-105)
[2023-11-27] MEDS: CLOPIDOGREL BISULFATE 75 MG TABLET PO (09:33)
[2023-11-27] MEDS: AMIODARONE HCL 200 MG TABLET 400 MG PO (09:33)
[2023-11-27] MEDS: DULoxetine HCL 60 MG CAPSULE.DR PO (09:34)
[2023-11-27] MEDS: PREGABALIN (*CRX) 50 MG CAPSULE PO ×2 (09:34→20:34)
[2023-11-27] MEDS: METOPROLOL SUCCINATE EXT REL 12.5 MG TABCR PO (09:34)
[2023-11-27] MEDS: EMPAGLIFLOZIN 25 MG TABLET PO (09:34)
[2023-11-27] MEDS: APIXABAN 5 MG TABLET PO ×2 (09:34→20:34)
[2023-11-27] MEDS: DOCUSATE SODIUM 100 MG CAPSULE PO ×2 (09:34→17:40)
--- NOTE | 2023-11-27 10:15 | P.PNIM_ITS ---
Progress Note: A&P Assessment and Plan (1) Ground-level fall: Code(s): W18.30XA - Fall on same level, unspecified, initial encounter Status: Acute Assessment and Plan: 11/21/23: * Patient sustained a ground level fall at home * Sacrum/coccyx x-ray was negative for fracture of sacrum or coccyx * Recently was discharged from a rehab facility, currently patient lives alone * PT and OT to eval and treat * Case management consulted for outpatient rehab needs versus [facility] placement * Continue pain control 11/22/23: * Continue PT and OT * Case management following * No change to current treatment plan 11/23/2023: * Increased Ultram to 50 mg tabs q.4 hours as needed for pain * Will add prednisone 5 mg daily to start now * She does have Tylenol as well for pain control * Patient keeps refusing PT and OT. We stressed that she needs to work with them so we can get her placement for outpatient. 11/24/23: * Continue with pain control efforts * X-ray of lumbar spine showing a new L3 compression fracture * Continue with PT and OT * WBC elevated to 13.1 likely due to starting prednisone yesterday, prednisone DC * Will order a TLSO brace and place ortho consult today 11/25/23: * Ortho consulted and recommending management with TLSO * Continue PT and OT * Continue with TLSO brace * Case coordination following 11/26/23: * PT and OT work with patient today and is recommending SNF placement * Case management notified 11/27/23: * PT and OT to work with patient again today * Case management working on SNF placement * Patient refuses to go to a [facility] and wishes to go back home after a rehab stay (2) Adult failure to thrive: Code(s): R62.7 - Adult failure to thrive Status: Acute Assessment and Plan: 11/21/23: * see above (3) Physical deconditioning: Code(s): R53.81 - Other malaise Status: Acute Assessment and Plan: 11/21/23: * see above (4) Pain, coccyx: Code(s): M53.3 - Sacrococcygeal disorders, not elsewhere classified Status: Acute Assessment and Plan: 11/21/23: * Continue with pain control efforts 11/22/23: * No change to current treatment plan (5) CHF (congestive heart failure): Qualifiers: Heart failure chronicity: chronic Heart failure type: systolic Qualified Code(s): I50.22 - Chronic systolic (congestive) heart failure Code(s): I50.9 - Heart failure, unspecified Status: Chronic Assessment and Plan: 11/21/23: * Combined systolic and diastolic CHF * Last echo on 10/18/23 shown a severely reduced LV systolic function with an estimated EF of 20-25%, grade 1 diastolic dysfunction * Continue Jardiance, spironolactone, and metoprolol 11/22/23: * No change to current treatment plan (6) Anxiety: Code(s): F41.9 - Anxiety disorder, unspecified Status: Chronic Assessment and Plan: 11/21/23: * Continue Xanax 11/22/23: * No change to current treatment plan (7) Diabetes mellitus: Code(s): E11.9 - Type 2 diabetes mellitus without complications Status: Chronic Assessment and Plan: 11/21/23: * Accu checks AC/HS * Last Hgb A1C was 8.0 * Blood glucose 275 * low dose SSI ordered * Meal time insulin ordered * Diabetic diet ordered * Lantus 8 units ordered * Hypoglycemia protocol in place 11/22/23: * Blood sugars ranging 97-157 * No change to current treatment plan (8) Coronary artery disease: Qualifiers:
--- NOTE | 2023-11-27 10:15 | PM.IMPN ---
Progress Note: A&P Assessment and Plan (1) Ground-level fall: Code(s): W18.30XA - Fall on same level, unspecified, initial encounter Status: Acute Assessment and Plan: 11/21/23: Patient sustained a ground level fall at home Sacrum/coccyx x-ray was negative for fracture of sacrum or coccyx Recently was discharged from a rehab facility, currently patient lives alone PT and OT to eval and treat Case management consulted for outpatient rehab needs versus [facility] placement Continue pain control 11/22/23: Continue PT and OT Case management following No change to current treatment plan 11/23/2023: Increased Ultram to 50 mg tabs q.4 hours as needed for pain Will add prednisone 5 mg daily to start now She does have Tylenol as well for pain control Patient keeps refusing PT and OT. We stressed that she needs to work with them so we can get her placement for outpatient. 11/24/23: Continue with pain control efforts X-ray of lumbar spine showing a new L3 compression fracture Continue with PT and OT WBC elevated to 13.1 likely due to starting prednisone yesterday, prednisone DC Will order a TLSO brace and place ortho consult today 11/25/23: Ortho consulted and recommending management with TLSO Continue PT and OT Continue with TLSO brace Case coordination following 11/26/23: PT and OT work with patient today and is recommending SNF placement Case management notified 11/27/23: PT and OT to work with patient again today Case management working on SNF placement Patient refuses to go to a [facility] and wishes to go back home after a rehab stay (2) Adult failure to thrive: Code(s): R62.7 - Adult failure to thrive Status: Acute Assessment and Plan: 11/21/23: see above (3) Physical deconditioning: Code(s): R53.81 - Other malaise Status: Acute Assessment and Plan: 11/21/23: see above (4) Pain, coccyx: Code(s): M53.3 - Sacrococcygeal disorders, not elsewhere classified Status: Acute Assessment and Plan: 11/21/23: Continue with pain control efforts 11/22/23: No change to current treatment plan (5) CHF (congestive heart failure): Qualifiers: Heart failure chronicity: chronic Heart failure type: systolic Qualified Code(s): I50.22 - Chronic systolic (congestive) heart failure Code(s): I50.9 - Heart failure, unspecified Status: Chronic Assessment and Plan: 11/21/23: Combined systolic and diastolic CHF Last echo on 10/18/23 shown a severely reduced LV systolic function with an estimated EF of 20-25%, grade 1 diastolic dysfunction Continue Jardiance, spironolactone, and metoprolol 11/22/23: No change to current treatment plan (6) Anxiety: Code(s): F41.9 - Anxiety disorder, unspecified Status: Chronic Assessment and Plan: 11/21/23: Continue Xanax 11/22/23: No change to current treatment plan (7) Diabetes mellitus: Code(s): E11.9 - Type 2 diabetes mellitus without complications Status: Chronic Assessment and Plan: 11/21/23: Accu checks AC/HS Last Hgb A1C was 8.0 Blood glucose 275 low dose SSI ordered Meal time insulin ordered Diabetic diet ordered Lantus 8 units ordered Hypoglycemia protocol in place 11/22/23: Blood sugars ranging 97-157 No change to current treatment plan (8) Coronary artery disease: Qualifiers: Associated angina: without angina Coronary Disease-Associated Artery/Lesion type: [place] artery [place] vs. transplanted heart: [place] heart Qualified Code(s): I25.10 - Atherosclerotic heart disease of [place] coronary artery without angina pectoris Code(s): I25.10 - Atherosclerotic heart disease of [place] coronary artery without angina pectoris Status: Acute Assessment and Plan: 11/21/23: Hx of 5v CABG Continue Plavix 11/22/23: No change to current treatment plan (9) Depression: Code(s): F32
[2023-11-27 11:55] LABS: Glucose Point of Care 124 mg/dl (65-105)
--- NOTE | 2023-11-27 12:35 | PC.NURSE ---
Called therapy to see if they will work with patient today. Therapy will try their best to be able to see patient today
[2023-11-27] MEDS: INSULIN GLARGINE (*BKC) 100 UNITS/ML 8 UNITS SUB-Q (12:53)
[2023-11-27 17:28] LABS: Glucose Point of Care 114 mg/dl (65-105)
[2023-11-27 20:04] LABS: Glucose Point of Care 189 mg/dl (65-105)
[2023-11-28] VITALS (7 sets, daily range): BP systolic 100–108; BP diastolic 54–68; PULSE 68–74; RESP 16–18; TEMP 36.5–36.9; O2SAT 97–99
[2023-11-28 05:11] LABS: Basophils Percent Auto 0.5 % (0.2-1.2); Eosinophils Absolute Auto 0.1 K/mm3 (0-0.3); Eosinophils Percent Auto 1.5 % (0-4.4); Hematocrit 37.5 % (37.0-47.0); Hemoglobin 10.5 g/dL (12.0-15.0); Immature Granulocyte Absolute 0.03 K/mm3 (0.00-0.031); Immature Granulocyte Percent A 0.4 % (0-0.5); Lymphocytes Absolute Auto 0.91 K/mm3 (0.9-3.2); Lymphocytes Percent Auto 12.3 % (18.3-44.2); Mean Corpuscular Hemoglobin 21.9 pg (26-34); Mean Corpuscular Volume 78.3 fl (80-100); Mean Platelet Volume 11.7 fl (7.4-10.4); Monocytes Absolute Auto 0.4 K/mm3 (0.1-0.6); Monocytes Percent Auto 5.9 % (2.6-8.5); Neutrophils Absolute Auto 5.9 K/mm3 (1.3-6.7); Neutrophils Percent Auto 79.4 % (45.5-73.1); Nucleated Red Blood Cells Perc 0.3 % (0.0-0.2); Platelet Count Result 192 k/mm3 (150-375); Red Blood Count 4.79 M/mm3 (4.2-5.4); Red Cell Distribution Width 17.4 % (11.5-14.5); White Blood Count 7.4 K/mm3 (4.5-10.0)
[2023-11-28 05:25] LABS: Alanine Aminotransferase 194 U/L (6-35); Albumin Level 3.6 g/dL (3.5-5.1); Alkaline Phosphatase 119 U/L (38-126); Anion Gap 7 mmol/L (4-12); Aspartate Amino Transferase 99 U/L (14-36); Blood Urea Nitrogen 25 mg/dL (7-17); Calcium 8.3 mg/dL (8.4-10.2); Carbon Dioxide 18 mmol/L (22-30); Chloride 112 mmol/L (98-107); Estimated CRCL calculation 62 ml/min; Estimated Glomerular Filt Rate 57; Glucose 148 mg/dL (65-110); Potassium 4.1 mmol/L (3.4-5.0); Sodium 137 mmol/L (137-145)
[2023-11-28] MEDS: LEVOTHYROXINE SODIUM 50 MCG TABLET PO (05:30)
[2023-11-28 05:35] LABS: Anisocytosis 1+; Hypochromasia 1+; Ovalocytes 1+; Platelet Estimate Adequate (Adequate); Poikilocytosis 1+; Schistocytes None Seen
[2023-11-28 07:38] LABS: Glucose Point of Care 168 mg/dl (65-105)
--- NOTE | 2023-11-28 08:49 | P.PNIM_ITS ---
Progress Note: A&P Assessment and Plan (1) Ground-level fall: Code(s): W18.30XA - Fall on same level, unspecified, initial encounter Status: Acute Assessment and Plan: 11/21/23: * Patient sustained a ground level fall at home * Sacrum/coccyx x-ray was negative for fracture of sacrum or coccyx * Recently was discharged from a rehab facility, currently patient lives alone * PT and OT to eval and treat * Case management consulted for outpatient rehab needs versus halfway placement * Continue pain control 11/22/23: * Continue PT and OT * Case management following * No change to current treatment plan 11/23/2023: * Increased Ultram to 50 mg tabs q.4 hours as needed for pain * Will add prednisone 5 mg daily to start now * She does have Tylenol as well for pain control * Patient keeps refusing PT and OT. We stressed that she needs to work with them so we can get her placement for outpatient. 11/24/23: * Continue with pain control efforts * X-ray of lumbar spine showing a new L3 compression fracture * Continue with PT and OT * WBC elevated to 13.1 likely due to starting prednisone yesterday, prednisone DC * Will order a TLSO brace and place ortho consult today 11/25/23: * Ortho consulted and recommending management with TLSO * Continue PT and OT * Continue with TLSO brace * Case coordination following 11/26/23: * PT and OT work with patient today and is recommending SNF placement * Case management notified 11/27/23: * PT and OT to work with patient again today * Case management working on SNF placement * Patient refuses to go to a halfway and wishes to go back home after a rehab stay 11/28/2023 Continue with physical therapy and wait for SNF placement (2) Adult failure to thrive: Code(s): R62.7 - Adult failure to thrive Status: Acute Assessment and Plan: 11/28/23: Encourage activity and diet intake. (3) Physical deconditioning: Code(s): R53.81 - Other malaise Status: Acute Assessment and Plan: 11/28/23: Stable on current medications, will continue current treat (4) Pain, coccyx: Code(s): M53.3 - Sacrococcygeal disorders, not elsewhere classified Status: Acute Assessment and Plan: 11/28/23: Pain controlled Stable on current medications, will continue current treat (5) CHF (congestive heart failure): Qualifiers: Heart failure chronicity: chronic Heart failure type: systolic Qualified Code(s): I50.22 - Chronic systolic (congestive) heart failure Code(s): I50.9 - Heart failure, unspecified Status: Chronic Assessment and Plan: 11/28/23: Stable on current medications, will continue current treat Combined systolic and diastolic CHF Last echo on 10/18/23 shown a severely reduced LV systolic function with an estimated EF of 20-25%, grade 1 diastolic dysfunction Continue Jardiance, spironolactone, and metoprolol (6) Anxiety: Code(s): F41.9 - Anxiety disorder, unspecified Status: Chronic Assessment and Plan: 11/28/23: * Stable on current medications, will continue current treat (7) Diabetes mellitus: Code(s): E11.9 - Type 2 diabetes mellitus without complications Status: Chronic Assessment and Plan: 11/28/23: * Stable on current medications, will continue current treat (8) Coronary artery disease: Qualifiers: Associated angina: without angina Coronary Disease-Associated Artery/Lesion type: [place] artery [place] vs. transplanted he
--- NOTE | 2023-11-28 08:49 | PM.IMPN ---
Progress Note: A&P Assessment and Plan (1) Ground-level fall: Code(s): W18.30XA - Fall on same level, unspecified, initial encounter Status: Acute Assessment and Plan: 11/21/23: Patient sustained a ground level fall at home Sacrum/coccyx x-ray was negative for fracture of sacrum or coccyx Recently was discharged from a rehab facility, currently patient lives alone PT and OT to eval and treat Case management consulted for outpatient rehab needs versus long-term placement Continue pain control 11/22/23: Continue PT and OT Case management following No change to current treatment plan 11/23/2023: Increased Ultram to 50 mg tabs q.4 hours as needed for pain Will add prednisone 5 mg daily to start now She does have Tylenol as well for pain control Patient keeps refusing PT and OT. We stressed that she needs to work with them so we can get her placement for outpatient. 11/24/23: Continue with pain control efforts X-ray of lumbar spine showing a new L3 compression fracture Continue with PT and OT WBC elevated to 13.1 likely due to starting prednisone yesterday, prednisone DC Will order a TLSO brace and place ortho consult today 11/25/23: Ortho consulted and recommending management with TLSO Continue PT and OT Continue with TLSO brace Case coordination following 11/26/23: PT and OT work with patient today and is recommending SNF placement Case management notified 11/27/23: PT and OT to work with patient again today Case management working on SNF placement Patient refuses to go to a long-term and wishes to go back home after a rehab stay 11/28/2023 Continue with physical therapy and wait for SNF placement (2) Adult failure to thrive: Code(s): R62.7 - Adult failure to thrive Status: Acute Assessment and Plan: 11/28/23: Encourage activity and diet intake. (3) Physical deconditioning: Code(s): R53.81 - Other malaise Status: Acute Assessment and Plan: 11/28/23: Stable on current medications, will continue current treat (4) Pain, coccyx: Code(s): M53.3 - Sacrococcygeal disorders, not elsewhere classified Status: Acute Assessment and Plan: 11/28/23: Pain controlled Stable on current medications, will continue current treat (5) CHF (congestive heart failure): Qualifiers: Heart failure chronicity: chronic Heart failure type: systolic Qualified Code(s): I50.22 - Chronic systolic (congestive) heart failure Code(s): I50.9 - Heart failure, unspecified Status: Chronic Assessment and Plan: 11/28/23: Stable on current medications, will continue current treat Combined systolic and diastolic CHF Last echo on 10/18/23 shown a severely reduced LV systolic function with an estimated EF of 20-25%, grade 1 diastolic dysfunction Continue Jardiance, spironolactone, and metoprolol (6) Anxiety: Code(s): F41.9 - Anxiety disorder, unspecified Status: Chronic Assessment and Plan: 11/28/23: Stable on current medications, will continue current treat (7) Diabetes mellitus: Code(s): E11.9 - Type 2 diabetes mellitus without complications Status: Chronic Assessment and Plan: 11/28/23: Stable on current medications, will continue current treat (8) Coronary artery disease: Qualifiers: Associated angina: without angina Coronary Disease-Associated Artery/Lesion type: [place] artery [place] vs. transplanted heart: [place] heart Qualified Code(s): I25.10 - Atherosclerotic heart disease of [place] coronary artery without angina pectoris Code(s): I25.10 - Atherosclerotic heart disease of [place] coronary artery without angina pectoris Status: Acute Assessment and Plan: 11/28/23: Stable on current medications, will continue current treat (9) Depression: Code(s): F32.9 - Major depressive disorder, single episode, unspecified Status: Chronic
[2023-11-28] MEDS: DOCUSATE SODIUM 100 MG CAPSULE PO ×2 (09:25→18:03)
[2023-11-28] MEDS: EMPAGLIFLOZIN 25 MG TABLET PO (09:25)
[2023-11-28] MEDS: AMIODARONE HCL 200 MG TABLET 400 MG PO (09:25)
[2023-11-28] MEDS: APIXABAN 5 MG TABLET PO ×2 (09:25→20:26)
[2023-11-28] MEDS: PREGABALIN (*CRX) 50 MG CAPSULE PO ×2 (09:25→20:26)
[2023-11-28] MEDS: CLOPIDOGREL BISULFATE 75 MG TABLET PO (09:25)
[2023-11-28] MEDS: METOPROLOL SUCCINATE EXT REL 12.5 MG TABCR PO (09:25)
[2023-11-28] MEDS: DULoxetine HCL 60 MG CAPSULE.DR PO (09:25)
[2023-11-28 11:37] LABS: Glucose Point of Care 156 mg/dl (65-105)
[2023-11-28] MEDS: INSULIN GLARGINE (*BKC) 100 UNITS/ML 8 UNITS SUB-Q (12:28)
[2023-11-28] MEDS: HYDROcodone/acetaminophen (*CRX) 5-325 MG TABLET 1 TAB PO (15:21)
[2023-11-28 16:44] LABS: Glucose Point of Care 185 mg/dl (65-105)
[2023-11-28 20:35] LABS: Glucose Point of Care 136 mg/dl (65-105)
[2023-11-29] VITALS (7 sets, daily range): BP systolic 88–106; BP diastolic 52–62; PULSE 63–74; RESP 16–18; TEMP 36.5–36.7; O2SAT 98–100
[2023-11-29 05:11] LABS: Basophils Absolute Auto 0.1 K/mm3 (0.0-0.1); Basophils Percent Auto 0.8 % (0.2-1.2); Eosinophils Absolute Auto 0.1 K/mm3 (0-0.3); Eosinophils Percent Auto 1.3 % (0-4.4); Hematocrit 37.1 % (37.0-47.0); Hemoglobin 10.4 g/dL (12.0-15.0); Immature Granulocyte Absolute 0.02 K/mm3 (0.00-0.031); Immature Granulocyte Percent A 0.3 % (0-0.5); Lymphocytes Absolute Auto 1.19 K/mm3 (0.9-3.2); Lymphocytes Percent Auto 15.9 % (18.3-44.2); Mean Corpuscular Hemoglobin 21.6 pg (26-34); Mean Platelet Volume 11.6 fl (7.4-10.4); Monocytes Absolute Auto 0.5 K/mm3 (0.1-0.6); Monocytes Percent Auto 6.4 % (2.6-8.5); Neutrophils Absolute Auto 5.6 K/mm3 (1.3-6.7); Neutrophils Percent Auto 75.3 % (45.5-73.1); Platelet Count Result 179 k/mm3 (150-375); Red Blood Count 4.82 M/mm3 (4.2-5.4); Red Cell Distribution Width 17.3 % (11.5-14.5); White Blood Count 7.5 K/mm3 (4.5-10.0)
[2023-11-29 05:27] LABS: Alanine Aminotransferase 152 U/L (6-35); Albumin Level 3.7 g/dL (3.5-5.1); Alkaline Phosphatase 103 U/L (38-126); Anion Gap 8 mmol/L (4-12); Aspartate Amino Transferase 65 U/L (14-36); Blood Urea Nitrogen 25 mg/dL (7-17); Calcium 8.7 mg/dL (8.4-10.2); Carbon Dioxide 20 mmol/L (22-30); Chloride 112 mmol/L (98-107); Estimated CRCL calculation 62 ml/min; Estimated Glomerular Filt Rate 57; Glucose 150 mg/dL (65-110); Potassium 4.2 mmol/L (3.4-5.0); Sodium 140 mmol/L (137-145)
[2023-11-29] MEDS: LEVOTHYROXINE SODIUM 50 MCG TABLET PO (05:31)
[2023-11-29 05:36] LABS: Anisocytosis 1+; Hypochromasia 1+; Ovalocytes 1+; Platelet Estimate Adequate (Adequate); Poikilocytosis 1+; Schistocytes None Seen
--- NOTE | 2023-11-29 07:46 | PM.PNORT ---
Progress Note: A&P Assessment and Plan (1) Compression fracture of L3 vertebra: Code(s): S32.030A - Wedge compression fracture of third lumbar vertebra, initial encounter for closed fracture Status: Acute (2) Lumbar spondylosis: Code(s): M47.816 - Spondylosis without myelopathy or radiculopathy, lumbar region Status: Acute Plan No change in care plan from orthopedic standpoint. Patient refuses TLSO brace. Awaiting discharge planning. 58 y/o female patient. Past medical history notable for below the knee amputation on the right, Diabetes, Charcot joint in the left foot, COPD, CAD, PAD, sleep apnea. Admitted to the hospital for failure to thrive. She was found to have an acute L3 compression fracture. She has a history of vertebroplasty at L1.? She has chronic burst fractures at L1-L2. Mild spondylosis and mild to moderate multilevel facet joint arthritis. Patient states she has had pain for 1 month. She does not recall falling. I recommend a TLSO brace. She may follow up in office in 1 month. Continue PT/OT. Patient may need SNF/Rehab at discharge. Subjective Subjective Date/Time Seen: 11/29/23 07:46 Objective Data Vital Signs Vital Signs: Vital Signs - 24 hr 11/28/23 09:15 11/28/23 09:25 11/28/23 09:25 Temperature Pulse Rate 72 74 74 Respiratory Rate 16 Blood Pressure 102/66 Pulse Oximetry 98 Oxygen Delivery Oxygen Flow Rate Fraction of Inspired Oxygen 11/28/23 09:30 11/28/23 14:00 11/28/23 20:12 Temperature 97.7 F 97.8 F Pulse Rate 73 68 Respiratory Rate 18 17 Blood Pressure 100/68 107/57 L Pulse Oximetry 98 99 99 Oxygen Delivery Nasal Cannula Oxygen Flow Rate 2 Fraction of Inspired Oxygen 11/28/23 20:00 11/29/23 05:10 Temperature 98.1 F Pulse Rate 68 66 Respiratory Rate 17 17 Blood Pressure 102/52 L Pulse Oximetry 99 98 Oxygen Delivery Nasal Cannula Oxygen Flow Rate 2 Fraction of Inspired Oxygen 28 Intake/Output Intake/Output: Intake & Output 11/26/23 11/27/23 11/28/23 11/29/23 23:59 23:59 23:59 23:59 Intake Total 2350 1443.3 492 220 Output Total 500 1050 600 200 Balance 1850 393.3 -108 20 Meds/Results Medications: Active Medications Generic Name Dose Route Start Last Admin Trade Name Freq PRN Reason Stop Dose Admin Hydrocodone Bitart/Acetaminophen 1 tab 11/24/23 10:49 11/28/23 15:21 Hydrocodone/Acetaminophen (*Crx) 5-325 Mg Tablet PO 1 tab Q4H PRN Administration Pain Rated 4-6 Hydrocodone Bitart/Acetaminophen 2 tab 11/24/23 10:49 Hydrocodone/Acetaminophen (*Crx) 5-325 Mg Tablet PO Q4H PRN Pain Rated 7-10 Alprazolam 0.5 mg 11/21/23 07:20 11/27/23 04:47 Alprazolam (*Crx) 0.5 Mg Tablet PO 0.5 mg BID PRN Administration Anxiety Amiodarone HCl 400 mg 11/21/23 09:00 11/28/23 09:25 Amiodarone Hcl 200 Mg Tablet PO 400 mg DAILY LIBBY Administration Apixaban 5 mg 11/21/23 09:00 11/28/23 20:26 Apixaban 5 Mg Tablet PO 5 mg Q12HR LIBBY Administration Clopidogrel Bisulfate 75 mg 11/21/23 09:00 11/28/23 09:25 Clopidogrel Bisulfate 75 Mg Tablet PO 75 mg QAM LIBBY Administration Cyclobenzaprine HCl 10 mg 11/21/23 07:20 11/27/23 01:59 Cyclobenzaprine Hcl 10 Mg Tablet PO 10 mg TID PRN Administration muscle spasms Dextrose 12.5 gm 11/21/23 07:30 Dextrose 50% 25 Gm/50 Ml Syringe IV PUSH PRN PRN Hypoglycemia Protocol Docusate Sodium 100 mg 11/21/23 09:00 11/28/23 18:03 Docusate Sodium 100 Mg Capsule PO 100 mg BID LIBBY Administration Duloxetine HCl 60 mg 11/21/23 09:00 11/28/23 09:25 Duloxetine Hcl 60 Mg Capsule.Dr PO 60 mg DAILY LIBBY Administration Empagliflozin 25 mg 11/21/23 09:00 11/28/23 09:25 Empagliflozin 25 Mg Tablet PO 25 mg DAILY LIBBY Administration Glucagon 1 mg 11/21/23 07:30 Glucagon For Inj 1 Mg Vial IM PRN PRN Hypoglycemia Protocol Glucose 15 gm 11/20
[2023-11-29 08:17] LABS: Glucose Point of Care 120 mg/dl (65-105)
--- NOTE | 2023-11-29 08:29 | P.PNIM_ITS ---
Progress Note: A&P Assessment and Plan (1) Ground-level fall: Code(s): W18.30XA - Fall on same level, unspecified, initial encounter Status: Acute Assessment and Plan: 11/21/23: * Patient sustained a ground level fall at home * Sacrum/coccyx x-ray was negative for fracture of sacrum or coccyx * Recently was discharged from a rehab facility, currently patient lives alone * PT and OT to eval and treat * Case management consulted for outpatient rehab needs versus [facility] placement * Continue pain control 11/22/23: * Continue PT and OT * Case management following * No change to current treatment plan 11/23/2023: * Increased Ultram to 50 mg tabs q.4 hours as needed for pain * Will add prednisone 5 mg daily to start now * She does have Tylenol as well for pain control * Patient keeps refusing PT and OT. We stressed that she needs to work with them so we can get her placement for outpatient. 11/24/23: * Continue with pain control efforts * X-ray of lumbar spine showing a new L3 compression fracture * Continue with PT and OT * WBC elevated to 13.1 likely due to starting prednisone yesterday, prednisone DC * Will order a TLSO brace and place ortho consult today 11/25/23: * Ortho consulted and recommending management with TLSO * Continue PT and OT * Continue with TLSO brace * Case coordination following 11/26/23: * PT and OT work with patient today and is recommending SNF placement * Case management notified 11/27/23: * PT and OT to work with patient again today * Case management working on SNF placement * Patient refuses to go to a [facility] and wishes to go back home after a rehab stay 11/28/2023 Continue with physical therapy and wait for SNF placement 11/29/2023: Continue PT OT reinforced need for SNF placement. TLSO brace Ortho following (2) Adult failure to thrive: Code(s): R62.7 - Adult failure to thrive Status: Acute Assessment and Plan: Encourage activity and diet intake. (3) Physical deconditioning: Code(s): R53.81 - Other malaise Status: Acute Assessment and Plan: Stable on current medications, will continue current treat (4) Pain, coccyx: Code(s): M53.3 - Sacrococcygeal disorders, not elsewhere classified Status: Acute Assessment and Plan: Pain controlled Stable on current medications, will continue current treat (5) CHF (congestive heart failure): Qualifiers: Heart failure chronicity: chronic Heart failure type: systolic Qualified Code(s): I50.22 - Chronic systolic (congestive) heart failure Code(s): I50.9 - Heart failure, unspecified Status: Chronic Assessment and Plan: Stable on current medications, will continue current treat Combined systolic and diastolic CHF Last echo on 10/18/23 shown a severely reduced LV systolic function with an estimated EF of 20-25%, grade 1 diastolic dysfunction Continue Jardiance, spironolactone, and metoprolol (6) Anxiety: Code(s): F41.9 - Anxiety disorder, unspecified Status: Chronic Assessment and Plan: * Stable on current medications, will continue current treat (7) Diabetes mellitus: Code(s): E11.9 - Type 2 diabetes mellitus without complications Status: Chronic Assessment and Plan: * Stable on current medications, will continue current treat (8) Coronary artery disease: Qualifiers: Associated angina: without angina Coronary Disease-Associated Artery/Lesion type: [place] artery [place]
--- NOTE | 2023-11-29 08:29 | PM.IMPN ---
Progress Note: A&P Assessment and Plan (1) Ground-level fall: Code(s): W18.30XA - Fall on same level, unspecified, initial encounter Status: Acute Assessment and Plan: 11/21/23: Patient sustained a ground level fall at home Sacrum/coccyx x-ray was negative for fracture of sacrum or coccyx Recently was discharged from a rehab facility, currently patient lives alone PT and OT to eval and treat Case management consulted for outpatient rehab needs versus halfway placement Continue pain control 11/22/23: Continue PT and OT Case management following No change to current treatment plan 11/23/2023: Increased Ultram to 50 mg tabs q.4 hours as needed for pain Will add prednisone 5 mg daily to start now She does have Tylenol as well for pain control Patient keeps refusing PT and OT. We stressed that she needs to work with them so we can get her placement for outpatient. 11/24/23: Continue with pain control efforts X-ray of lumbar spine showing a new L3 compression fracture Continue with PT and OT WBC elevated to 13.1 likely due to starting prednisone yesterday, prednisone DC Will order a TLSO brace and place ortho consult today 11/25/23: Ortho consulted and recommending management with TLSO Continue PT and OT Continue with TLSO brace Case coordination following 11/26/23: PT and OT work with patient today and is recommending SNF placement Case management notified 11/27/23: PT and OT to work with patient again today Case management working on SNF placement Patient refuses to go to a halfway and wishes to go back home after a rehab stay 11/28/2023 Continue with physical therapy and wait for SNF placement 11/29/2023: Continue PT OT reinforced need for SNF placement. TLSO brace Ortho following (2) Adult failure to thrive: Code(s): R62.7 - Adult failure to thrive Status: Acute Assessment and Plan: Encourage activity and diet intake. (3) Physical deconditioning: Code(s): R53.81 - Other malaise Status: Acute Assessment and Plan: Stable on current medications, will continue current treat (4) Pain, coccyx: Code(s): M53.3 - Sacrococcygeal disorders, not elsewhere classified Status: Acute Assessment and Plan: Pain controlled Stable on current medications, will continue current treat (5) CHF (congestive heart failure): Qualifiers: Heart failure chronicity: chronic Heart failure type: systolic Qualified Code(s): I50.22 - Chronic systolic (congestive) heart failure Code(s): I50.9 - Heart failure, unspecified Status: Chronic Assessment and Plan: Stable on current medications, will continue current treat Combined systolic and diastolic CHF Last echo on 10/18/23 shown a severely reduced LV systolic function with an estimated EF of 20-25%, grade 1 diastolic dysfunction Continue Jardiance, spironolactone, and metoprolol (6) Anxiety: Code(s): F41.9 - Anxiety disorder, unspecified Status: Chronic Assessment and Plan: Stable on current medications, will continue current treat (7) Diabetes mellitus: Code(s): E11.9 - Type 2 diabetes mellitus without complications Status: Chronic Assessment and Plan: Stable on current medications, will continue current treat (8) Coronary artery disease: Qualifiers: Associated angina: without angina Coronary Disease-Associated Artery/Lesion type: [place] artery [place] vs. transplanted heart: [place] heart Qualified Code(s): I25.10 - Atherosclerotic heart disease of [place] coronary artery without angina pectoris Code(s): I25.10 - Atherosclerotic heart disease of [place] coronary artery without angina pectoris Status: Acute Assessment and Plan: Stable on current medications, will continue current treat (9) Depression: Code(s): F32.9 - Major depressive disorder, single episode, unspecified
[2023-11-29] MEDS: AMIODARONE HCL 200 MG TABLET 400 MG PO (11:04)
[2023-11-29] MEDS: DULoxetine HCL 60 MG CAPSULE.DR PO (11:05)
[2023-11-29] MEDS: METOPROLOL SUCCINATE EXT REL 12.5 MG TABCR PO (11:05)
[2023-11-29] MEDS: PREGABALIN (*CRX) 50 MG CAPSULE PO ×2 (11:05→20:02)
[2023-11-29] MEDS: CLOPIDOGREL BISULFATE 75 MG TABLET PO (11:05)
[2023-11-29] MEDS: DOCUSATE SODIUM 100 MG CAPSULE PO ×2 (11:05→17:46)
[2023-11-29] MEDS: APIXABAN 5 MG TABLET PO ×2 (11:05→20:02)
[2023-11-29] MEDS: EMPAGLIFLOZIN 25 MG TABLET PO (11:06)
[2023-11-29 12:00] LABS: Glucose Point of Care 110 mg/dl (65-105)
[2023-11-29] MEDS: INSULIN GLARGINE (*BKC) 100 UNITS/ML 8 UNITS SUB-Q (13:09)
--- NOTE | 2023-11-29 14:17 | PM.DS ---
DS: Admitting Diagnosis Discharge Date 11/29/2023 Admitting Diagnosis Fall DS: Discharge Diagnosis Discharge Diagnosis (1) Ground-level fall: Code(s): W18.30XA - Fall on same level, unspecified, initial encounter Status: Acute (2) Adult failure to thrive: Code(s): R62.7 - Adult failure to thrive Status: Acute (3) Physical deconditioning: Code(s): R53.81 - Other malaise Status: Acute (4) Pain, coccyx: Code(s): M53.3 - Sacrococcygeal disorders, not elsewhere classified Status: Acute (5) CHF (congestive heart failure): Qualifiers: Heart failure chronicity: chronic Heart failure type: systolic Qualified Code(s): I50.22 - Chronic systolic (congestive) heart failure Code(s): I50.9 - Heart failure, unspecified Status: Chronic (6) Anxiety: Code(s): F41.9 - Anxiety disorder, unspecified Status: Chronic (7) Diabetes mellitus: Code(s): E11.9 - Type 2 diabetes mellitus without complications Status: Chronic (8) Coronary artery disease: Qualifiers: Associated angina: without angina Coronary Disease-Associated Artery/Lesion type: [place] artery [place] vs. transplanted heart: [place] heart Qualified Code(s): I25.10 - Atherosclerotic heart disease of [place] coronary artery without angina pectoris Code(s): I25.10 - Atherosclerotic heart disease of [place] coronary artery without angina pectoris Status: Acute (9) Depression: Code(s): F32.9 - Major depressive disorder, single episode, unspecified Status: Chronic (10) Total bilirubin, elevated: Code(s): R17 - Unspecified jaundice Status: Acute (11) Elevated liver enzymes: Code(s): R74.8 - Abnormal levels of other serum enzymes Status: Acute (12) Hyperkalemia: Code(s): E87.5 - Hyperkalemia Status: Acute (13) EVAN (acute kidney injury): Code(s): N17.9 - Acute kidney failure, unspecified Status: Acute DS: Summary Hospital Course Hospital Course: This is a 58-year-old female with past medical history of anxiety, type 2 diabetes, coronary artery disease, depression, diabetic peripheral neuropathy, hypercholesterolemia, peripheral arterial disease, 5 vessel CABG, hysterectomy, appendectomy, tonsillectomy, BKA on right, former smoker presented to the ER after a ground level fall and tailbone pain. She was recently admitted and was discharged to rehab facility and spent 12 days after his insurance denied and went back home where she sustained a fall. She has been able to care for herself at home and was wanting placement. Workup in the ER showed the sacrum and coccyx x-ray negative for fracture. Hemoglobin of 9.9 sodium 135 bicarb 19 magnesium 1.9 liver enzymes were normal echocardiogram last done on 10/18/2023 showed severely reduced LV systolic function with ejection fraction of 20-25% grade 1 diastolic dysfunction. Subsequently during the hospital stay PT OT was consulted pain control was achieved with hydrocodone. Rest of the chronic medical problems were stable and maintain on her chronic medications. CT abdomen was performed due to elevated liver enzymes which showed compression fracture of L3 which is new. X-ray of lumbar spine conformed finding. Orthopedic was consulted. TLSO brace was recommended however she had not tolerated in the past and refused. Since then she has been evaluated by case folder for SNF placement however patient has been refusing to be placed because of financial reason. This was discussed several times with the patient and subsequently family which includes her son was also involved and decision of home with home health was made and is getting discharged there. Time Spent with Patient Time attestation: Total time spent providing and/or coordinating discharge services: 35 minutes Exam Narrative: General: In no acute distress, well nourished Head: atraumatic, no encephal
[2023-11-29 17:07] LABS: Glucose Point of Care 195 mg/dl (65-105)
[2023-11-29 21:01] LABS: Glucose Point of Care 271 mg/dl (65-105)
[2023-11-29] MEDS: INSULIN ASPART (*BKC) 100 UNITS/ML SUB-Q (21:09)
[2023-11-29] MEDS: HYDROcodone/acetaminophen (*CRX) 5-325 MG TABLET 2 TAB PO (22:54)
[2023-11-29] MEDS: CYCLOBENZAPRINE HCL 10 MG TABLET PO (23:51)
[2023-11-30] VITALS (7 sets, daily range): BP systolic 95–101; BP diastolic 53–66; PULSE 73; RESP 14–18; TEMP 36.2–36.6; O2SAT 93–97
[2023-11-30] MEDS: LEVOTHYROXINE SODIUM 50 MCG TABLET PO (05:22)
[2023-11-30 05:58] LABS: Basophils Absolute Auto 0.1 K/mm3 (0.0-0.1); Basophils Percent Auto 1.1 % (0.2-1.2); Eosinophils Absolute Auto 0.2 K/mm3 (0-0.3); Eosinophils Percent Auto 2.2 % (0-4.4); Hemoglobin 10.3 g/dL (12.0-15.0); Immature Granulocyte Absolute 0.03 K/mm3 (0.00-0.031); Immature Granulocyte Percent A 0.4 % (0-0.5); Lymphocytes Absolute Auto 1.48 K/mm3 (0.9-3.2); Lymphocytes Percent Auto 19.5 % (18.3-44.2); Mean Corpuscular HGB Conc 28.6 g/dl (32-36); Mean Corpuscular Hemoglobin 21.8 pg (26-34); Mean Corpuscular Volume 76.3 fl (80-100); Mean Platelet Volume 11.3 fl (7.4-10.4); Monocytes Absolute Auto 0.6 K/mm3 (0.1-0.6); Monocytes Percent Auto 7.8 % (2.6-8.5); Neutrophils Absolute Auto 5.2 K/mm3 (1.3-6.7); Platelet Count Result 180 k/mm3 (150-375); Red Blood Count 4.72 M/mm3 (4.2-5.4); Red Cell Distribution Width 17.2 % (11.5-14.5); White Blood Count 7.6 K/mm3 (4.5-10.0)
[2023-11-30 06:10] LABS: Alanine Aminotransferase 114 U/L (6-35); Albumin Level 3.6 g/dL (3.5-5.1); Alkaline Phosphatase 100 U/L (38-126); Anion Gap 9 mmol/L (4-12); Aspartate Amino Transferase 38 U/L (14-36); Bilirubin,Total 0.9 mg/dL (0.2-1.3); Blood Urea Nitrogen 23 mg/dL (7-17); Calcium 8.6 mg/dL (8.4-10.2); Carbon Dioxide 19 mmol/L (22-30); Chloride 111 mmol/L (98-107); Estimated CRCL calculation 62 ml/min; Estimated Glomerular Filt Rate 57; Glucose 150 mg/dL (65-110); Magnesium 2.3 mg/dL (1.6-2.3); Potassium 4.2 mmol/L (3.4-5.0); Sodium 139 mmol/L (137-145)
[2023-11-30 06:45] LABS: Platelet Estimate Adequate (Adequate)
[2023-11-30 06:46] LABS: Anisocytosis 1+; Large Platelets Present; Schistocytes None Seen
--- NOTE | 2023-11-30 08:06 | P.PNIM_ITS ---
Progress Note: A&P Assessment and Plan (1) Ground-level fall: Code(s): W18.30XA - Fall on same level, unspecified, initial encounter Status: Acute Assessment and Plan: 11/21/23: * Patient sustained a ground level fall at home * Sacrum/coccyx x-ray was negative for fracture of sacrum or coccyx * Recently was discharged from a rehab facility, currently patient lives alone * PT and OT to eval and treat * Case management consulted for outpatient rehab needs versus [facility] placement * Continue pain control 11/22/23: * Continue PT and OT * Case management following * No change to current treatment plan 11/23/2023: * Increased Ultram to 50 mg tabs q.4 hours as needed for pain * Will add prednisone 5 mg daily to start now * She does have Tylenol as well for pain control * Patient keeps refusing PT and OT. We stressed that she needs to work with them so we can get her placement for outpatient. 11/24/23: * Continue with pain control efforts * X-ray of lumbar spine showing a new L3 compression fracture * Continue with PT and OT * WBC elevated to 13.1 likely due to starting prednisone yesterday, prednisone DC * Will order a TLSO brace and place ortho consult today 11/25/23: * Ortho consulted and recommending management with TLSO * Continue PT and OT * Continue with TLSO brace * Case coordination following 11/26/23: * PT and OT work with patient today and is recommending SNF placement * Case management notified 11/27/23: * PT and OT to work with patient again today * Case management working on SNF placement * Patient refuses to go to a [facility] and wishes to go back home after a rehab stay 11/28/23: * No change to current treatment plan (2) Adult failure to thrive: Code(s): R62.7 - Adult failure to thrive Status: Acute Assessment and Plan: 11/21/23: * see above (3) Physical deconditioning: Code(s): R53.81 - Other malaise Status: Acute Assessment and Plan: 11/21/23: * see above (4) Pain, coccyx: Code(s): M53.3 - Sacrococcygeal disorders, not elsewhere classified Status: Acute Assessment and Plan: 11/21/23: * Continue with pain control efforts 11/22/23: * No change to current treatment plan (5) CHF (congestive heart failure): Qualifiers: Heart failure chronicity: chronic Heart failure type: systolic Qualified Code(s): I50.22 - Chronic systolic (congestive) heart failure Code(s): I50.9 - Heart failure, unspecified Status: Chronic Assessment and Plan: 11/21/23: * Combined systolic and diastolic CHF * Last echo on 10/18/23 shown a severely reduced LV systolic function with an estimated EF of 20-25%, grade 1 diastolic dysfunction * Continue Jardiance, spironolactone, and metoprolol 11/22/23: * No change to current treatment plan (6) Anxiety: Code(s): F41.9 - Anxiety disorder, unspecified Status: Chronic Assessment and Plan: 11/21/23: * Continue Xanax 11/22/23: * No change to current treatment plan (7) Diabetes mellitus: Code(s): E11.9 - Type 2 diabetes mellitus without complications Status: Chronic Assessment and Plan: 11/21/23: * Accu checks AC/HS * Last Hgb A1C was 8.0 * Blood glucose 275 * low dose SSI ordered * Meal time insulin ordered * Diabetic diet ordered * Lantus 8 units ordered * Hypoglycemia protocol in place 11/22/23: * Blood sugars ranging 97-157 * No change to current treatment plan
--- NOTE | 2023-11-30 08:06 | PM.IMPN ---
Progress Note: A&P Assessment and Plan (1) Ground-level fall: Code(s): W18.30XA - Fall on same level, unspecified, initial encounter Status: Acute Assessment and Plan: 11/21/23: Patient sustained a ground level fall at home Sacrum/coccyx x-ray was negative for fracture of sacrum or coccyx Recently was discharged from a rehab facility, currently patient lives alone PT and OT to eval and treat Case management consulted for outpatient rehab needs versus residential placement Continue pain control 11/22/23: Continue PT and OT Case management following No change to current treatment plan 11/23/2023: Increased Ultram to 50 mg tabs q.4 hours as needed for pain Will add prednisone 5 mg daily to start now She does have Tylenol as well for pain control Patient keeps refusing PT and OT. We stressed that she needs to work with them so we can get her placement for outpatient. 11/24/23: Continue with pain control efforts X-ray of lumbar spine showing a new L3 compression fracture Continue with PT and OT WBC elevated to 13.1 likely due to starting prednisone yesterday, prednisone DC Will order a TLSO brace and place ortho consult today 11/25/23: Ortho consulted and recommending management with TLSO Continue PT and OT Continue with TLSO brace Case coordination following 11/26/23: PT and OT work with patient today and is recommending SNF placement Case management notified 11/27/23: PT and OT to work with patient again today Case management working on SNF placement Patient refuses to go to a residential and wishes to go back home after a rehab stay 11/28/23: No change to current treatment plan (2) Adult failure to thrive: Code(s): R62.7 - Adult failure to thrive Status: Acute Assessment and Plan: 11/21/23: see above (3) Physical deconditioning: Code(s): R53.81 - Other malaise Status: Acute Assessment and Plan: 11/21/23: see above (4) Pain, coccyx: Code(s): M53.3 - Sacrococcygeal disorders, not elsewhere classified Status: Acute Assessment and Plan: 11/21/23: Continue with pain control efforts 11/22/23: No change to current treatment plan (5) CHF (congestive heart failure): Qualifiers: Heart failure chronicity: chronic Heart failure type: systolic Qualified Code(s): I50.22 - Chronic systolic (congestive) heart failure Code(s): I50.9 - Heart failure, unspecified Status: Chronic Assessment and Plan: 11/21/23: Combined systolic and diastolic CHF Last echo on 10/18/23 shown a severely reduced LV systolic function with an estimated EF of 20-25%, grade 1 diastolic dysfunction Continue Jardiance, spironolactone, and metoprolol 11/22/23: No change to current treatment plan (6) Anxiety: Code(s): F41.9 - Anxiety disorder, unspecified Status: Chronic Assessment and Plan: 11/21/23: Continue Xanax 11/22/23: No change to current treatment plan (7) Diabetes mellitus: Code(s): E11.9 - Type 2 diabetes mellitus without complications Status: Chronic Assessment and Plan: 11/21/23: Accu checks AC/HS Last Hgb A1C was 8.0 Blood glucose 275 low dose SSI ordered Meal time insulin ordered Diabetic diet ordered Lantus 8 units ordered Hypoglycemia protocol in place 11/22/23: Blood sugars ranging 97-157 No change to current treatment plan 11/30/23: BG ranging 150-271 Will increase to medium dose SSI (8) Coronary artery disease: Qualifiers: Associated angina: without angina Coronary Disease-Associated Artery/Lesion type: [place] artery [place] vs. transplanted heart: [place] heart Qualified Code(s): I25.10 - Atherosclerotic heart disease of [place] coronary artery without angina pectoris Code(s): I25.10 - Atherosclerotic heart disease of [place] coronary artery without angina pectoris Status: Acute Assessment and Plan: 11/21/23: H
[2023-11-30 08:21] LABS: Glucose Point of Care 126 mg/dl (65-105)
[2023-11-30] MEDS: DULoxetine HCL 60 MG CAPSULE.DR PO (09:28)
[2023-11-30] MEDS: CLOPIDOGREL BISULFATE 75 MG TABLET PO (09:28)
[2023-11-30] MEDS: AMIODARONE HCL 200 MG TABLET 400 MG PO (09:28)
[2023-11-30] MEDS: APIXABAN 5 MG TABLET PO ×2 (09:28→20:02)
[2023-11-30] MEDS: EMPAGLIFLOZIN 25 MG TABLET PO (09:29)
[2023-11-30] MEDS: METOPROLOL SUCCINATE EXT REL 12.5 MG TABCR PO (09:29)
[2023-11-30] MEDS: DOCUSATE SODIUM 100 MG CAPSULE PO ×2 (09:29→18:03)
[2023-11-30] MEDS: PREGABALIN (*CRX) 50 MG CAPSULE PO ×2 (09:29→20:02)
[2023-11-30 11:52] LABS: Glucose Point of Care 188 mg/dl (65-105)
[2023-11-30] MEDS: INSULIN GLARGINE (*BKC) 100 UNITS/ML 8 UNITS SUB-Q (12:34)
[2023-11-30 16:56] LABS: Glucose Point of Care 297 mg/dl (65-105)
[2023-11-30] MEDS: INSULIN ASPART (*BKC) 100 UNITS/ML SUB-Q (18:03)
[2023-11-30 21:11] LABS: Glucose Point of Care 188 mg/dl (65-105)
[2023-11-30] MEDS: HYDROcodone/acetaminophen (*CRX) 5-325 MG TABLET 2 TAB PO (22:28)
[2023-12-01] VITALS (7 sets, daily range): BP systolic 95–100; BP diastolic 52–58; PULSE 62–68; RESP 16–18; TEMP 36.3–36.4; O2SAT 94–100
[2023-12-01] MEDS: HYDROcodone/acetaminophen (*CRX) 5-325 MG TABLET 2 TAB PO ×2 (02:29→14:51)
[2023-12-01] MEDS: LEVOTHYROXINE SODIUM 50 MCG TABLET PO (05:06)
[2023-12-01 05:38] LABS: Basophils Absolute Auto 0.1 K/mm3 (0.0-0.1); Basophils Percent Auto 1.1 % (0.2-1.2); Eosinophils Absolute Auto 0.2 K/mm3 (0-0.3); Eosinophils Percent Auto 2.4 % (0-4.4); Hematocrit 37.5 % (37.0-47.0); Hemoglobin 10.4 g/dL (12.0-15.0); Immature Granulocyte Absolute 0.04 K/mm3 (0.00-0.031); Immature Granulocyte Percent A 0.5 % (0-0.5); Lymphocytes Absolute Auto 1.55 K/mm3 (0.9-3.2); Lymphocytes Percent Auto 18.7 % (18.3-44.2); Mean Corpuscular HGB Conc 27.7 g/dl (32-36); Mean Corpuscular Hemoglobin 21.4 pg (26-34); Mean Corpuscular Volume 77.3 fl (80-100); Mean Platelet Volume 11.2 fl (7.4-10.4); Monocytes Absolute Auto 0.6 K/mm3 (0.1-0.6); Monocytes Percent Auto 7.7 % (2.6-8.5); Neutrophils Absolute Auto 5.8 K/mm3 (1.3-6.7); Neutrophils Percent Auto 69.6 % (45.5-73.1); Platelet Count Result 197 k/mm3 (150-375); Red Blood Count 4.85 M/mm3 (4.2-5.4); Red Cell Distribution Width 17.4 % (11.5-14.5); White Blood Count 8.3 K/mm3 (4.5-10.0)
[2023-12-01 05:52] LABS: Alanine Aminotransferase 91 U/L (6-35); Albumin Level 3.8 g/dL (3.5-5.1); Alkaline Phosphatase 98 U/L (38-126); Anion Gap 10 mmol/L (4-12); Aspartate Amino Transferase 28 U/L (14-36); Bilirubin,Total 0.7 mg/dL (0.2-1.3); Blood Urea Nitrogen 25 mg/dL (7-17); Calcium 8.5 mg/dL (8.4-10.2); Carbon Dioxide 18 mmol/L (22-30); Chloride 111 mmol/L (98-107); Estimated CRCL calculation 52 ml/min; Estimated Glomerular Filt Rate 46; Glucose 186 mg/dL (65-110); Potassium 4.1 mmol/L (3.4-5.0); Sodium 139 mmol/L (137-145)
[2023-12-01 06:19] LABS: Anisocytosis 1+; Hypochromasia 1+; Platelet Estimate Adequate (Adequate); Schistocytes None Seen
[2023-12-01 08:20] LABS: Glucose Point of Care 168 mg/dl (65-105)
[2023-12-01] MEDS: PREGABALIN (*CRX) 50 MG CAPSULE PO ×2 (08:31→20:21)
[2023-12-01] MEDS: METOPROLOL SUCCINATE EXT REL 12.5 MG TABCR PO (08:31)
[2023-12-01] MEDS: EMPAGLIFLOZIN 25 MG TABLET PO (08:31)
[2023-12-01] MEDS: DOCUSATE SODIUM 100 MG CAPSULE PO ×2 (08:33→17:59)
[2023-12-01] MEDS: AMIODARONE HCL 200 MG TABLET 400 MG PO (08:33)
[2023-12-01] MEDS: DULoxetine HCL 60 MG CAPSULE.DR PO (08:33)
[2023-12-01] MEDS: CLOPIDOGREL BISULFATE 75 MG TABLET PO (08:33)
[2023-12-01] MEDS: SODIUM CHLORIDE 0.9% IV 500 ML 250 ML IV CONT (08:34)
[2023-12-01] MEDS: APIXABAN 5 MG TABLET PO ×2 (08:34→20:21)
[2023-12-01 12:13] LABS: Glucose Point of Care 135 mg/dl (65-105)
--- NOTE | 2023-12-01 12:30 | PM.DS ---
DS: Admitting Diagnosis Discharge Date 12/01/23 Admitting Diagnosis Ground level fall Adult failure to thrive Physical deconditioning Pain, coccyx CHF Anxiety Diabetes mellitus Atherosclerosis heart [place] coronary artery without angina pectoralis Depression DS: Discharge Diagnosis Discharge Diagnosis (1) Ground-level fall: Code(s): W18.30XA - Fall on same level, unspecified, initial encounter Status: Acute (2) Adult failure to thrive: Code(s): R62.7 - Adult failure to thrive Status: Acute (3) Physical deconditioning: Code(s): R53.81 - Other malaise Status: Acute (4) Pain, coccyx: Code(s): M53.3 - Sacrococcygeal disorders, not elsewhere classified Status: Acute (5) CHF (congestive heart failure): Qualifiers: Heart failure chronicity: chronic Heart failure type: systolic Qualified Code(s): I50.22 - Chronic systolic (congestive) heart failure Code(s): I50.9 - Heart failure, unspecified Status: Chronic (6) Anxiety: Code(s): F41.9 - Anxiety disorder, unspecified Status: Chronic (7) Diabetes mellitus: Code(s): E11.9 - Type 2 diabetes mellitus without complications Status: Chronic (8) Coronary artery disease: Qualifiers: Associated angina: without angina Coronary Disease-Associated Artery/Lesion type: [place] artery [place] vs. transplanted heart: [place] heart Qualified Code(s): I25.10 - Atherosclerotic heart disease of [place] coronary artery without angina pectoris Code(s): I25.10 - Atherosclerotic heart disease of [place] coronary artery without angina pectoris Status: Acute (9) Depression: Code(s): F32.9 - Major depressive disorder, single episode, unspecified Status: Chronic (10) Elevated liver enzymes: Code(s): R74.8 - Abnormal levels of other serum enzymes Status: Acute (11) EVAN (acute kidney injury): Code(s): N17.9 - Acute kidney failure, unspecified Status: Acute DS: Summary Hospital Course Reason for hospitalization: Ground level fall Adult failure to thrive Physical deconditioning Pain, coccyx CHF Anxiety Diabetes mellitus Atherosclerosis heart [place] coronary artery without angina pectoralis Depression Hospital Course: Interval history: 11/21/23: This is a 58-year-old female with a significant past medical history anxiety, type 2 diabetes mellitus, coronary artery disease, depression, diabetic peripheral neuropathy, hypercholesterolemia, peripheral artery disease, 5 vessel CABG, hysterectomy, appendectomy, tonsillectomy, BKA on the right, former smoker who presented to the emergency room for evaluation after a ground level fall and tailbone pain.?Most of history and presenting illness obtained through the medical record as patient is arousable to voice but drifts back to sleep during my assessment.? Patient was admitted and discharged to a rehab facility this month.? She spent 12 days there before insurance denied anymore rehab days.? She went home and then sustained a fall last night. Patient states she is not able to care for herself at home and is wanting placement. Work up in the hospital included a sacrum and coccyx x-ray which was negative for fracture.? Labs today reveal hemoglobin of 9.9, sodium 135, bicarb 19, magnesium 1.9, liver enzymes are normal.? Last echo was reviewed from 10/18/2023 which shows of severely reduced LV systolic function with an estimated EF of 20-25%, grade 1 diastolic dysfunction. Patient was given Dilaudid for pain while in the ER. 11/22/23: On examination today patient is alert oriented x3, lying in the bed.? She denies any new complaints today.? Labs today showed hemoglobin of 8.6, sodium 136, creatinine 1.1, blood sugars ranging 165-177.? She will continue working with PT and OT at this time and we will also touch base with Case Management for outpatient rehab needs. 11/23/23: Patient reporting back pain this morning.?
[2023-12-01] MEDS: INSULIN GLARGINE (*BKC) 100 UNITS/ML 8 UNITS SUB-Q (12:53)
[2023-12-01] MEDS: CYCLOBENZAPRINE HCL 10 MG TABLET PO (14:52)
--- NOTE | 2023-12-01 15:02 | P.PNIM_ITS ---
Progress Note: A&P Assessment and Plan (1) Ground-level fall: Code(s): W18.30XA - Fall on same level, unspecified, initial encounter Status: Acute Assessment and Plan: 11/21/23: * Patient sustained a ground level fall at home * Sacrum/coccyx x-ray was negative for fracture of sacrum or coccyx * Recently was discharged from a rehab facility, currently patient lives alone * PT and OT to eval and treat * Case management consulted for outpatient rehab needs versus long term placement * Continue pain control 11/22/23: * Continue PT and OT * Case management following * No change to current treatment plan 11/23/2023: * Increased Ultram to 50 mg tabs q.4 hours as needed for pain * Will add prednisone 5 mg daily to start now * She does have Tylenol as well for pain control * Patient keeps refusing PT and OT. We stressed that she needs to work with them so we can get her placement for outpatient. 11/24/23: * Continue with pain control efforts * X-ray of lumbar spine showing a new L3 compression fracture * Continue with PT and OT * WBC elevated to 13.1 likely due to starting prednisone yesterday, prednisone DC * Will order a TLSO brace and place ortho consult today 11/25/23: * Ortho consulted and recommending management with TLSO * Continue PT and OT * Continue with TLSO brace * Case coordination following 11/26/23: * PT and OT work with patient today and is recommending SNF placement * Case management notified 11/27/23: * PT and OT to work with patient again today * Case management working on SNF placement * Patient refuses to go to a long term and wishes to go back home after a rehab stay 11/28/23: * No change to current treatment plan 12/01/2023: * No change to current treatment plan * Going to [facility] tomorrow, patient is agreeable, facility accepted the patient we are just waiting for the bed to be of available which will happen as of tomorrow. (2) Adult failure to thrive: Code(s): R62.7 - Adult failure to thrive Status: Acute Assessment and Plan: 11/21/23: * see above (3) Physical deconditioning: Code(s): R53.81 - Other malaise Status: Acute Assessment and Plan: 11/21/23: * see above (4) Pain, coccyx: Code(s): M53.3 - Sacrococcygeal disorders, not elsewhere classified Status: Acute Assessment and Plan: 11/21/23: * Continue with pain control efforts 11/22/23: * No change to current treatment plan (5) CHF (congestive heart failure): Qualifiers: Heart failure chronicity: chronic Heart failure type: systolic Qualified Code(s): I50.22 - Chronic systolic (congestive) heart failure Code(s): I50.9 - Heart failure, unspecified Status: Chronic Assessment and Plan: 11/21/23: * Combined systolic and diastolic CHF * Last echo on 10/18/23 shown a severely reduced LV systolic function with an estimated EF of 20-25%, grade 1 diastolic dysfunction * Continue Jardiance, spironolactone, and metoprolol 11/22/23: * No change to current treatment plan (6) Anxiety: Code(s): F41.9 - Anxiety disorder, unspecified Status: Chronic Assessment and Plan: 11/21/23: * Continue Xanax 11/22/23: * No change to current treatment plan (7) Diabetes mellitus: Code(s): E11.9 - Type 2 diabetes mellitus without complications Status: Chronic Assessment and Plan: 11/21/23: * Accu checks AC/HS * Last Hgb A1C was 8.0 * Blood glucose 275 * low do
--- NOTE | 2023-12-01 15:02 | PM.IMPN ---
Progress Note: A&P Assessment and Plan (1) Ground-level fall: Code(s): W18.30XA - Fall on same level, unspecified, initial encounter Status: Acute Assessment and Plan: 11/21/23: Patient sustained a ground level fall at home Sacrum/coccyx x-ray was negative for fracture of sacrum or coccyx Recently was discharged from a rehab facility, currently patient lives alone PT and OT to eval and treat Case management consulted for outpatient rehab needs versus [facility] placement Continue pain control 11/22/23: Continue PT and OT Case management following No change to current treatment plan 11/23/2023: Increased Ultram to 50 mg tabs q.4 hours as needed for pain Will add prednisone 5 mg daily to start now She does have Tylenol as well for pain control Patient keeps refusing PT and OT. We stressed that she needs to work with them so we can get her placement for outpatient. 11/24/23: Continue with pain control efforts X-ray of lumbar spine showing a new L3 compression fracture Continue with PT and OT WBC elevated to 13.1 likely due to starting prednisone yesterday, prednisone DC Will order a TLSO brace and place ortho consult today 11/25/23: Ortho consulted and recommending management with TLSO Continue PT and OT Continue with TLSO brace Case coordination following 11/26/23: PT and OT work with patient today and is recommending SNF placement Case management notified 11/27/23: PT and OT to work with patient again today Case management working on SNF placement Patient refuses to go to a [facility] and wishes to go back home after a rehab stay 11/28/23: No change to current treatment plan 12/01/2023: No change to current treatment plan Going to [facility] tomorrow, patient is agreeable, facility accepted the patient we are just waiting for the bed to be of available which will happen as of tomorrow. (2) Adult failure to thrive: Code(s): R62.7 - Adult failure to thrive Status: Acute Assessment and Plan: 11/21/23: see above (3) Physical deconditioning: Code(s): R53.81 - Other malaise Status: Acute Assessment and Plan: 11/21/23: see above (4) Pain, coccyx: Code(s): M53.3 - Sacrococcygeal disorders, not elsewhere classified Status: Acute Assessment and Plan: 11/21/23: Continue with pain control efforts 11/22/23: No change to current treatment plan (5) CHF (congestive heart failure): Qualifiers: Heart failure chronicity: chronic Heart failure type: systolic Qualified Code(s): I50.22 - Chronic systolic (congestive) heart failure Code(s): I50.9 - Heart failure, unspecified Status: Chronic Assessment and Plan: 11/21/23: Combined systolic and diastolic CHF Last echo on 10/18/23 shown a severely reduced LV systolic function with an estimated EF of 20-25%, grade 1 diastolic dysfunction Continue Jardiance, spironolactone, and metoprolol 11/22/23: No change to current treatment plan (6) Anxiety: Code(s): F41.9 - Anxiety disorder, unspecified Status: Chronic Assessment and Plan: 11/21/23: Continue Xanax 11/22/23: No change to current treatment plan (7) Diabetes mellitus: Code(s): E11.9 - Type 2 diabetes mellitus without complications Status: Chronic Assessment and Plan: 11/21/23: Accu checks AC/HS Last Hgb A1C was 8.0 Blood glucose 275 low dose SSI ordered Meal time insulin ordered Diabetic diet ordered Lantus 8 units ordered Hypoglycemia protocol in place 11/22/23: Blood sugars ranging 97-157 No change to current treatment plan 11/30/23: BG ranging 150-271 Will increase to medium dose SSI 12/01/2023: Blood sugars ranging 135-168 Continue with current treatment plan (8) Coronary artery disease: Qualifiers: Associated angina: without angina Coronary Disease-Associated Artery/Lesion type: [place] artery [place] vs. [place]
[2023-12-01 17:24] LABS: Glucose Point of Care 174 mg/dl (65-105)
[2023-12-01 20:04] LABS: Glucose Point of Care 142 mg/dl (65-105)
[2023-12-02 03:32] LABS: Glucose Point of Care 154 mg/dl (65-105)
[2023-12-02 03:54] VITALS: BP 92/50; PULSE 68; RESP 17; TEMP 36.5; O2SAT 97
[2023-12-02] MEDS: HYDROcodone/acetaminophen (*CRX) 5-325 MG TABLET 2 TAB PO (04:02)
[2023-12-02] MEDS: ALPRAZolam (*CRX) 0.5 MG TABLET PO (04:03)
[2023-12-02] MEDS: LEVOTHYROXINE SODIUM 50 MCG TABLET PO (04:03)
[2023-12-02 05:48] LABS: Basophils Absolute Auto 0.1 K/mm3 (0.0-0.1); Basophils Percent Auto 0.9 % (0.2-1.2); Eosinophils Absolute Auto 0.1 K/mm3 (0-0.3); Eosinophils Percent Auto 1.9 % (0-4.4); Hematocrit 38.5 % (37.0-47.0); Hemoglobin 10.3 g/dL (12.0-15.0); Immature Granulocyte Absolute 0.02 K/mm3 (0.00-0.031); Immature Granulocyte Percent A 0.3 % (0-0.5); Lymphocytes Absolute Auto 1.05 K/mm3 (0.9-3.2); Lymphocytes Percent Auto 15.2 % (18.3-44.2); Mean Corpuscular HGB Conc 26.8 g/dl (32-36); Mean Corpuscular Hemoglobin 21.7 pg (26-34); Mean Corpuscular Volume 81.2 fl (80-100); Mean Platelet Volume 12.7 fl (7.4-10.4); Monocytes Absolute Auto 0.4 K/mm3 (0.1-0.6); Monocytes Percent Auto 6.4 % (2.6-8.5); Neutrophils Absolute Auto 5.2 K/mm3 (1.3-6.7); Neutrophils Percent Auto 75.3 % (45.5-73.1); Platelet Count Result 167 k/mm3 (150-375); Red Blood Count 4.74 M/mm3 (4.2-5.4); Red Cell Distribution Width 17.6 % (11.5-14.5); White Blood Count 6.9 K/mm3 (4.5-10.0)
[2023-12-02 06:00] LABS: Alanine Aminotransferase 69 U/L (6-35); Albumin Level 3.3 g/dL (3.5-5.1); Alkaline Phosphatase 89 U/L (38-126); Anion Gap 10 mmol/L (4-12); Aspartate Amino Transferase 32 U/L (14-36); Bilirubin,Total 0.9 mg/dL (0.2-1.3); Blood Urea Nitrogen 26 mg/dL (7-17); Calcium 7.8 mg/dL (8.4-10.2); Carbon Dioxide 15 mmol/L (22-30); Chloride 109 mmol/L (98-107); Estimated CRCL calculation 57 ml/min; Estimated Glomerular Filt Rate 51; Glucose 187 mg/dL (65-110); Potassium 4.1 mmol/L (3.4-5.0); Sodium 134 mmol/L (137-145)
[2023-12-02 06:30] LABS: Burr Cells 2+; Platelet Estimate Adequate (Adequate); Poikilocytosis 1+; Schistocytes None Seen
[2023-12-02 07:55] VITALS: O2SAT 97
[2023-12-02 08:20] LABS: Glucose Point of Care 155 mg/dl (65-105)
--- NOTE | 2023-12-02 08:38 | PCNWS ---
Weekly nutritional screen. Patient is tolerating current diet with adequate intake. No weight loss reported. No nutritional needs at this time.
[2023-12-02 09:10] VITALS: BP 100/57; PULSE 63; O2SAT 96
[2023-12-02 09:12] VITALS: PULSE 63
[2023-12-02] MEDS: DULoxetine HCL 60 MG CAPSULE.DR PO (09:12)
[2023-12-02] MEDS: PREGABALIN (*CRX) 50 MG CAPSULE PO (09:12)
[2023-12-02] MEDS: METOPROLOL SUCCINATE EXT REL 12.5 MG TABCR PO (09:12)
[2023-12-02] MEDS: CLOPIDOGREL BISULFATE 75 MG TABLET PO (09:12)
[2023-12-02] MEDS: AMIODARONE HCL 200 MG TABLET 400 MG PO (09:12)
[2023-12-02] MEDS: APIXABAN 5 MG TABLET PO (09:13)
[2023-12-02] MEDS: EMPAGLIFLOZIN 25 MG TABLET PO (09:13)
[2023-12-02] MEDS: DOCUSATE SODIUM 100 MG CAPSULE PO (09:13)
--- NOTE | 2023-12-02 11:07 | PM.DS ---
DS: Admitting Diagnosis Discharge Date 12/02/23 Admitting Diagnosis Fall Weakness Physical Deconditioning DS: Discharge Diagnosis Discharge Diagnosis (1) Anxiety: Code(s): F41.9 - Anxiety disorder, unspecified Status: Chronic (2) Lumbar spondylosis: Code(s): M47.816 - Spondylosis without myelopathy or radiculopathy, lumbar region Status: Acute (3) Compression fracture of L3 vertebra: Code(s): S32.030A - [place] compression fracture of third lumbar vertebra, initial encounter for closed fracture Status: Acute (4) Physical deconditioning: Code(s): R53.81 - Other malaise Status: Acute (5) Ground-level fall: Code(s): W18.30XA - Fall on same level, unspecified, initial encounter Status: Acute DS: Summary Hospital Course Reason for hospitalization: Fall Physical [place] Hospital Course: ?58-year-old female with a significant past medical history anxiety, type 2 diabetes mellitus, coronary artery disease, depression, diabetic peripheral neuropathy, hypercholesterolemia, peripheral artery disease, 5 vessel CABG, hysterectomy, appendectomy, tonsillectomy, BKA on the right, former smoker who presented to the emergency room for evaluation after a ground level fall and tailbone pain.? Ortho was consulted, was recommended for TLSO brace. Discharge to [facility] in stable condition. Status at Discharge Overall status at discharge: patient is not back to baseline Time Spent with Patient Time attestation: Total time spent providing and/or coordinating discharge services: Time spent: Greater than 30 minutes Exam Narrative: General: In no acute distress, well nourished Head: atraumatic, no encephalopathy Eyes: EOMI, PERRLA, sclera clear ENT: moist mucous membranes, nasal passages clear Neck: supple, no JVD, no adenopathy, trachea midline Cardiac: Normal S1 and S2. No murmur, gallops or friction rubs, peripheral pulses intact. Respiratory: Lungs clear to auscultation, no adventitious lung sounds Gastrointestinal: soft, non-distended, non-tender, normoactive bowel sounds. : voiding without difficulty. Extremities: moves all extremities well, no edema Skin: clean, dry, intact. No wounds or lesions. Neuro: Alert and oriented x4, cranial nerves intact, no neuro deficits. Psych: normal mood, normal affect, interactive DS: Data Data Completed and Pending Labs on day of discharge: Labs from last 24 hours 12/02/23 12/02/23 12/02/23 08:00 05:26 03:28 WBC 6.9 RBC 4.74 Hgb 10.3 L Hct 38.5 MCV 81.2 D MCH 21.7 L MCHC 26.8 L RDW 17.6 H Plt Count 167 MPV 12.7 H Immature Gran % (Auto) 0.3 Neut % (Auto) 75.3 H Lymph % (Auto) 15.2 L [place] % (Auto) 6.4 Eos % (Auto) 1.9 Baso % (Auto) 0.9 Lymph # (Auto) 1.05 [place] # (Auto) 0.4 Eos # (Auto) 0.1 Baso # (Auto) 0.1 Abs Immat Gran (auto) 0.02 Absolute Neuts (auto) 5.2 Absolute Nucleated RBC 0.000 Nucleated RBC % 0.0 Platelet Estimate Adequate Poikilocytosis 1+ [place] Cells 2+ Schistocytes None seen Sodium 134 L Potassium 4.1 Chloride 109 H Carbon Dioxide 15 L Anion Gap 10 BUN 26 H Creatinine 1.10 H Estim Creat Clear Calc 57 Estimated GFR 51 L Glucose 187 H POC Capillary Glucose 155 H 154 H Calcium 7.8 L Total Bilirubin 0.9 AST 32 ALT 69 H Alkaline Phosphatase 89 Total Protein 6.0 L Albumin 3.3 L 12/01/23 12/01/23 12/01/23 19:50 16:58 12:08 WBC RBC Hgb Hct MCV MCH MCHC RDW Plt Count MPV Immature Gran % (Auto) Neut % (Auto) Lymph % (Auto) [place] % (Auto) Eos % (Auto) Baso % (Auto) Lymph # (Auto) Baldwin # (Auto) Eos # (Auto) Baso # (Auto) Abs Immat Gran (auto) Absolute Neuts (auto) Absolute Nucleated RBC Nucleated RBC % Platelet Estimate Poikilocytosis Leonard Cells Shaunna
[2023-12-02 11:44] LABS: Glucose Point of Care 127 mg/dl (65-105)
[2023-12-02] MEDS: INSULIN GLARGINE (*BKC) 100 UNITS/ML 8 UNITS SUB-Q (12:05)
[2023-12-02 12:08] LABS: SARS-CoV-2 RNA PCR Negative (Negative)
[2023-12-02 13:44] VITALS: BP 101/56; PULSE 70; RESP 17; TEMP 36.1; O2SAT 100
== END 2023-12-02 14:20 | DRG 552 ==
LOC: ANHED 11-21 02:38 → ANH3MEDSUR 11-21 03:35 → ANH2MED 11-21 03:50
PROVIDERS: Nurse Practitioner Acute Care; Admitting Provider Internal Medicine; Emergency Provider Emergency Medicine; PCP Emergency Medicine; Visit Provider Internal Medicine
DX: S32.039A Unspecified fracture of third lumbar vertebra, initial encounter for closed fracture (principal); I50.42 Chronic combined systolic (congestive) and diastolic (congestive) heart failure; N17.9 Acute kidney failure, unspecified; R17 Unspecified jaundice; E11.42 Type 2 diabetes mellitus with diabetic polyneuropathy; F41.9 Anxiety disorder, unspecified; I25.10 Atherosclerotic heart disease of native coronary artery without angina pectoris; W18.30XA Fall on same level, unspecified, initial encounter; M47.816 Spondylosis without myelopathy or radiculopathy, lumbar region; J44.9 Chronic obstructive pulmonary disease, unspecified; E11.51 Type 2 diabetes mellitus with diabetic peripheral angiopathy without gangrene; E78.00 Pure hypercholesterolemia, unspecified; G47.30 Sleep apnea, unspecified; F32.9 Major depressive disorder, single episode, unspecified; Z90.49 Acquired absence of other specified parts of digestive tract; Z95.1 Presence of aortocoronary bypass graft; Z89.511 Acquired absence of right leg below knee; Z87.891 Personal history of nicotine dependence; Z11.52 Encounter for screening for COVID-19; Z79.4 Long term (current) use of insulin; Z90.710 Acquired absence of both cervix and uterus; Z95.5 Presence of coronary angioplasty implant and graft; R62.7 Adult failure to thrive; Z68.30 Body mass index [BMI] 30.0-30.9, adult; R74.8 Abnormal levels of other serum enzymes; E87.5 Hyperkalemia; Z99.3 Dependence on wheelchair
CPT/HCPCS: 36415; 72100; 72220; 74176; 76705; 80053; 80074; 81001; 82550; 82948; 83735; 85025; 87086; 87088; 87635; 96361; 96374; 96375; 97110; 97162; 97166; 97530; 97535; 99285; A9270; G0378; J1170; J1815; J2270; J2405; J7030; J7040; J7042; J7512

== ENCOUNTER 2023-12-04 00:32 | Emergency (ER) | payer MEDICARE, MEDICAID, SELFPAY ==
[2023-12-04 00:34] VITALS: BP 113/88; PULSE 69; RESP 20; TEMP 37; O2SAT 94
--- NOTE | 2023-12-04 01:51 | PC.NURSE ---
pt refusing blood work/ catheterization at this time. pt states, I want to go home I have rights . Pt is ao x 4 at this time. pt verbalized understanding of risks of not testing urine and blood work. Pt states, Send me home, I don't care I will call my machine pie maker in the morning to get me out of there . GAIL Zamora witnessed pt refusing lab testing at this time.
--- NOTE | 2023-12-04 01:58 | PC.NURSE ---
pt refused vital signs.
[2023-12-04] MEDS: ZINC OXIDE 20% OINT 30 GM TUBE 1 APPLIC TOPICAL (02:40)
--- NOTE | 2023-12-04 03:17 | PC.NURSE ---
pt continuously using call light requesting to go back to [facility].
--- NOTE | 2023-12-04 03:18 | ED.GENADULT ---
HPI - General Adult General Chief complaint: Unspecified Stated complaint: rectal pain Time Seen by Provider: 12/04/23 01:01 Source: patient and old records reviewed Mode of arrival: EMS Limitations: no limitations History of Present Illness HPI narrative: Patient is a 58-year-old female, with PMH of DM, PAD, CHF, R BKA, who presents to the ED EMS with report of rectal burning. Per records, patient has been seen in our ED recently for several falls, failure to thrive, difficulty caring for herself at home. She was most recently diagnosed with an L3 compression fracture. She was discharged to [facility] for rehabilitation. Patient is not happy with her care there. States staff does not help change her depends and she frequently is sitting in her urine and feces. She complains of burning pain to her rectum and vulvar region with using the restroom. States she has had multiple bowel movement today. Denies rectal bleeding or melena. Denies abdominal pain, nausea, vomiting, fevers. Related Data Home Medications Medication Instructions Recorded Confirmed insulin lispro 100 unit/mL 10 unit subcut TIDWM 03/30/22 11/21/23 subcutaneous solution (Admelog U-100 Insulin lispro) evolocumab 140 mg/mL subcutaneous 140 mg subcut [id number] 06/15/22 11/21/23 pen injector (Bety Friedman) amiodarone 200 mg tablet 400 mg PO DAILY 11/19/22 11/21/23 cyclobenzaprine 10 mg tablet 10 mg PO TID PRN muscle spasms 05/19/23 11/21/23 duloxetine 60 mg capsule,delayed 60 mg PO DAILY 05/28/23 11/21/23 release empagliflozin 25 mg tablet 25 mg PO DAILY 05/28/23 11/21/23 (Jardiance) insulin glargine 100 unit/mL (3 8 unit subcut .COMPLEX 05/28/23 11/21/23 mL) subcutaneous pen (Basaglar KwikPen U-100 Insulin) spironolactone 25 mg tablet 12.5 mg PO DAILY 05/28/23 11/21/23 Allergies Allergy/AdvReac Type Severity Reaction Status Date / Time methantheline Allergy Unknown Verified 11/20/23 23:35 Mrakkbx-WQO-AnP Reductase AdvReac Intermediate MYALGIAS Verified 11/20/23 23:35 Inhibitor propofol AdvReac Agitated Verified 11/30/23 08:17 Review of Systems Review of Systems: CONSTITUTIONAL: Denies fever, chills, or sweats. GASTROINTESTINAL: See HPI. GENITOURINARY: See HPI. MUSCULOSKELETAL: Denies back pain, extremity pain, myalgia. All systems reviewed & are unremarkable except as noted in HPI and below PMFSH Past Medical History Medical History Anxiety Charcot's joint of foot in type 2 diabetes mellitus Of the right foot Chronic obstructive pulmonary disease Coronary artery disease Left anterior descending stent 01/2019. 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 Peripheral vascular disease due to secondary diabetes Serotonin syndrome Suspected sleep apnea AHI 35 on apnea link on 06/16/2022. Surgical History Surgical History History of appendectomy History of section x3 History of hysterectomy Partial, ovaries retained. Due to cervical changes. History of tonsillectomy and adenoidectomy History of vertebroplasty Hx of BKA Right 11/19/20 at [facility] S/P CABG x 5 w/MVR and left atrial appendage ligation Status post cholecystectomy Stented coronary artery X1 Family History Family History Sibling Diabetes mellitus Mother Heart failure Cardiomegaly Arthritis Atrial fibrillation Family history of osteoporos
[2023-12-04 03:42] LABS: Toxigenic C. Diff POSITIVE (NEGATIVE)
[2023-12-04] MEDS: VANCOMYCIN HCL 125 MG ORAL CAPSULE PO (04:36)
--- NOTE | 2023-12-04 04:51 | PC.NURSE ---
pt refusing vital signs.
--- NOTE | 2023-12-04 05:59 | PC.NURSE ---
pt refused vital signs upon discharge, prior to EMS arrival to transport patient back to [place].
== END 2023-12-04 04:07 ==
PROVIDERS: Emergency Provider Physician Assistant; PCP Emergency Medicine
DX: A04.72 Enterocolitis due to Clostridium difficile, not specified as recurrent (principal); L22 Diaper dermatitis; E11.610 Type 2 diabetes mellitus with diabetic neuropathic arthropathy; E11.42 Type 2 diabetes mellitus with diabetic polyneuropathy; E11.51 Type 2 diabetes mellitus with diabetic peripheral angiopathy without gangrene; I73.9 Peripheral vascular disease, unspecified; J44.9 Chronic obstructive pulmonary disease, unspecified; E78.00 Pure hypercholesterolemia, unspecified; F41.9 Anxiety disorder, unspecified; F32.A Depression, unspecified; Z95.1 Presence of aortocoronary bypass graft; Z95.818 Presence of other cardiac implants and grafts; Z87.891 Personal history of nicotine dependence; Z90.711 Acquired absence of uterus with remaining cervical stump; Z89.511 Acquired absence of right leg below knee; Z90.49 Acquired absence of other specified parts of digestive tract; Z79.4 Long term (current) use of insulin; Z79.01 Long term (current) use of anticoagulants; Z79.84 Long term (current) use of oral hypoglycemic drugs
CPT/HCPCS: 87045; 87427; 87449; 87493; 99283; A9270

== ENCOUNTER 2024-03-28 02:06 | Inpatient (IN) | payer MEDICARE, MEDICAID, SELFPAY ==
[2024-03-28] VITALS (13 sets, daily range): BP systolic 102–147; BP diastolic 66–86; PULSE 82–140; RESP 15–18; TEMP 36.5–37; O2SAT 85–100; BMI 25.8
--- NOTE | ~2024-03-28 | US_ITS ---
EXAMINATION: US biopsy liver DATE: 03/29/2024 11:33 INDICATION: Liver mass. TECHNIQUE: The procedure including the risks, benefits, and alternatives was discussed with the patie nt. Risks discussed included bleeding and infection. The patient understood the risks and agreed to p roceed. The skin overlying the liver was prepped and draped in usual sterile fashion. Anesthetic was administered with 1% lidocaine subcutaneously. An 18 gauge core biopsy needle was then used to obta in 3 core biopsy specimens under continuous sonographic guidance. The entry site was cleaned and dres sed. There were no immediate complications. FINDINGS: Ultrasound images demonstrate the needle in a 4.2 cm mass in the liver. IMPRESSION: 1. Ultrasound-guided core needle biopsy of a liver mass. Reviewed, dictated and finalized at location A.
--- NOTE | ~2024-03-28 | CT_ITS ---
EXAMINATION: CT abdomen pelvis w con DATE: 03/28/2024 04:07 INDICATION: Right upper quadrant abdominal pain. TECHNIQUE: Computed tomography (CT) of the abdomen and pelvis was performed with 100 mL Omnipaque 350 intravenous contrast. Automated exposure control and iterative reconstruction technique were employe d. The dose-length product was 858.07 mGy-cm. COMPARISON: CT abdomen and pelvis 11/24/2023, 03/30/2022 FINDINGS: The visualized portions of the lung bases demonstrate smooth septal thickening, consistent with mild pulmonary edema. There are small right and moderate-sized left pleural effusions. There is dependent passive atelectasis in left lung. There is left ventricular enlargement of the heart. There are changes of mitral valve replacement. There are pacer wires in right atrium and right ventricle. No pericardial effusion. There is a 3.3 cm mass with peripheral arterial enhancement in left hepatic lobe. There are changes of cholecystectomy. Calcifications in the spleen are consistent with old gran ulomatous disease. The pancreas, adrenal glands, and right kidney are normal. There is cortical thinn ing of left kidney. There are no dilated loops of bowel. The appendix is not visualized. There is dewayne cified atherosclerosis of the aorta and many of the other arteries. There is a stent in right common and external iliac arteries. There is a stent in left common iliac vein. There are no pathologically enlarged lymph nodes. There is no free intraperitoneal fluid. There is internal fixation of proximal left femur. There are old healed fractures of left superior and inferior pubic rami. There is a chron ic burst fracture of L1 with changes of vertebroplasty. There are chronic burst fractures of L2 and L 3. There are chronic compression fractures of T11, T12, L4, and L5. There is mild lumbar spondylosis. IMPRESSION: 1. Mild pulmonary edema. 2. Small right and moderate-sized left pleural effusions. 3. 3.3 cm mass in left hepatic lobe, new from 03/30/2022. The differential diagnosis includes metastat ic disease and hepatocellular carcinoma. Ultrasound-guided core needle biopsy is recommended. Reviewed, dictated and finalized at location A. IMPRESSION: 1. Mild pulmonary edema. 2. Small right and moderate-sized left pleural effusions. 3. 3.3 cm mass in left hepatic lobe, new from 03/30/2022. The differential diagn osis includes metastatic disease and hepatocellular carcinoma. Ultrasound-guide d core needle biopsy is recommended.
--- NOTE | ~2024-03-28 | CT_ITS ---
EXAMINATION:CT diagnostic chest w con DATE: 04/03/2024 11:43 INDICATION: Lung nodule. TECHNIQUE: Computed tomography (CT) of the chest was performed with 75 mL Omnipaque 350 intravenous c ontrast. Automated exposure control and iterative reconstruction technique were employed. The dose-le ngth product (DLP) was 320.20 mGy-cm. COMPARISON: Chest CT 10/15/2023, 12/08/22 FINDINGS: There is mild emphysema. There is septal thickening the lungs, consistent with mild pulmona ry edema. There are small right and moderate-sized left pleural effusions. There is dependent atelect asis in left lung. There is a 1.9 cm nodule in right upper lobe near the hilum. There are tree-in-bud opacities peripheral to the mass, consistent with infection. There is mild right hilar and mediastin al lymphadenopathy. Calcified mediastinal lymph nodes are consistent with old granulomatous disease. Cardiomegaly is noted. There are changes of mitral valve replacement. There are coronary artery calci fications. There are pacer wires in right atrium and right ventricle. There is a closure device at le ft atrial appendage. There is a 3.7 cm mass in left hepatic lobe. There is a burst fracture of the in ferior plate endplate of T7 with less than 1/5 loss of height. There are is mild chronic height loss of T11 and T12. There is a chronic burst fracture L1 with changes of vertebroplasty. IMPRESSION: 1. 1.9 cm nodule in right lung upper lobe, worsened from 10/15/2023, consistent with primary bronchogen ic carcinoma. 2. Mild postobstructive pneumonia in right upper lobe. 3. Mild right hilar and mediastinal lymphadenopathy, which may be reactive or metastatic disease. 4. Liver mass suspicious for metastatic disease. Biopsy results are pending. 5. Mild pulmonary edema. 6. Small right and moderate-sized left pleural effusions. Reviewed, dictated and finalized at location A. IMPRESSION: 1. 1.9 cm nodule in right lung upper lobe, worsened from 10/15/2023, consistent w ith primary bronchogenic carcinoma. 2. Mild postobstructive pneumonia in right upper lobe. 3. Mild right hilar and mediastinal lymphadenopathy, which may be reactive or m etastatic disease. 4. Liver mass suspicious for metastatic disease. Biopsy results are pending. 5. Mild pulmonary edema. 6. Small right and moderate-sized left pleural effusions.
--- NOTE | ~2024-03-28 | XR_ITS ---
XR chest 1V portable 03/29/2024 09:09 Indication: Hypoxia. Pleural effusion. Procedure: AP portable chest Comparison: 10/18/2023 Findings: Status post median sternotomy for CABG. Cardiomegaly. Small left pleural effusion. Mild int erstitial edema. No pneumothorax. Pacemaker leads are in expected position. There is a closure device overlying the left atrium. Impression: 1: Cardiomegaly with mild interstitial edema. Reviewed, dictated and finalized at location B. Impression: 1: Cardiomegaly with mild interstitial edema.
--- NOTE | 2024-03-28 02:25 | ECG_ITS ---
Test Date: 2024-03-28 02:54:11 Measurements Intervals [place] Rate: 97 P: 51 CT: 201 QRS: -50 QRSD: 118 T: 87 QT: 390 QTc: 497 Interpretive Statements SINUS RHYTHM LEFT ANTERIOR FASCICULAR BLOCK [QRS AXIS <= -45, QR IN I, RS IN II] No previous ECG available for comparison Electronically Signed On 03-28-2024 08:54:41 CDT by Micheline Salinas M.D.
--- NOTE | 2024-03-28 02:30 | PC.NURSE ---
Pt states she would like to refuse blood draw or an IV until the provider speaks with her.
[2024-03-28 03:27] LABS: Basophils Absolute Auto 0.1 K/mm3 (0.0-0.1); Basophils Percent Auto 0.8 % (0.2-1.2); Eosinophils Absolute Auto 0.1 K/mm3 (0-0.3); Eosinophils Percent Auto 1.5 % (0-4.4); Hematocrit 40.9 % (37.0-47.0); Hemoglobin 12.3 g/dL (12.0-15.0); Immature Granulocyte Absolute 0.03 K/mm3 (0.00-0.031); Immature Granulocyte Percent A 0.4 % (0-0.5); Immature Platelet Fraction Pct 5.4 % (0.9-11.2); Lymphocytes Absolute Auto 1.15 K/mm3 (0.9-3.2); Lymphocytes Percent Auto 14.8 % (18.3-44.2); Mean Corpuscular HGB Conc 30.1 g/dl (32-36); Mean Corpuscular Volume 73.3 fl (80-100); Mean Platelet Volume 10.4 fl (7.4-10.4); Monocytes Absolute Auto 0.5 K/mm3 (0.1-0.6); Monocytes Percent Auto 6.3 % (2.6-8.5); Neutrophils Absolute Auto 5.9 K/mm3 (1.3-6.7); Neutrophils Percent Auto 76.2 % (45.5-73.1); Platelet Count Result 190 k/mm3 (150-375); Red Blood Count 5.58 M/mm3 (4.2-5.4); Red Cell Distribution Width 18.2 % (11.5-14.5); White Blood Count 7.8 K/mm3 (4.5-10.0)
[2024-03-28] MEDS: HYDROmorphone HCL INJ (*CRX) 1 MG/ML SYR 0.5 MG IV PUSH ×5 (03:31→20:10)
[2024-03-28 03:39] LABS: Alanine Aminotransferase 12 U/L (6-35); Albumin Level 4.2 g/dL (3.5-5.1); Alkaline Phosphatase 115 U/L (38-126); Anion Gap 12 mmol/L (4-12); Aspartate Amino Transferase 20 U/L (14-36); Bilirubin,Total 0.7 mg/dL (0.2-1.3); Blood Urea Nitrogen 21 mg/dL (7-17); Calcium 8.9 mg/dL (8.4-10.2); Carbon Dioxide 22 mmol/L (22-30); Chloride 102 mmol/L (98-107); Estimated CRCL calculation 61 ml/min; Estimated Glomerular Filt Rate > 60; Glucose 373 mg/dL (65-110); Lipase 89 U/L (23-300); Potassium 3.9 mmol/L (3.4-5.0); Sodium 136 mmol/L (137-145)
[2024-03-28 03:41] LABS: Anisocytosis 1+; Large Platelets Present; Ovalocytes 1+; Platelet Estimate Adequate (Adequate); Schistocytes None Seen
--- NOTE | 2024-03-28 03:48 | ED.ABDPAIN ---
HPI - Abdominal Pain General Chief Complaint: Abdominal Pain Stated Complaint: ABD PAIN Time Seen by Provider: 03/28/24 02:16 History of Present Illness HPI narrative: Patient with history of CAD, CHF, cholecystectomy, presents here with severe right quadrant pain for the last 4 days, mild nausea which has resolved. Denies any chest pain or difficulty breathing. Related Data Home Medications Medication Instructions Recorded Confirmed insulin lispro 100 unit/mL 10 unit subcut TIDWM 03/30/22 01/05/24 subcutaneous solution (Admelog U-100 Insulin lispro) evolocumab 140 mg/mL subcutaneous 140 mg subcut [id number] 06/15/22 01/05/24 pen injector (Repatha SureClick) amiodarone 200 mg tablet 400 mg PO DAILY 11/19/22 01/05/24 cyclobenzaprine 10 mg tablet 10 mg PO TID PRN muscle spasms 05/19/23 01/05/24 duloxetine 60 mg capsule,delayed 60 mg PO DAILY 05/28/23 01/05/24 release empagliflozin 25 mg tablet 25 mg PO DAILY 05/28/23 01/05/24 (Jardiance) insulin glargine 100 unit/mL (3 8 unit subcut .COMPLEX 05/28/23 01/05/24 mL) subcutaneous pen (Basaglar KwikPen U-100 Insulin) spironolactone 25 mg tablet 12.5 mg PO DAILY 05/28/23 01/05/24 Allergies Allergy/AdvReac Type Severity Reaction Status Date / Time methantheline Allergy Severe Unknown Verified 03/28/24 05:34 methylene blue Allergy Severe Unknown Verified 03/28/24 05:34 Kfmqkfh-EGM-XtC Reductase AdvReac Intermediate MYALGIAS Verified 02/09/24 09:43 Inhibitor propofol AdvReac Agitated Verified 02/09/24 09:43 Review of Systems Review of Systems: All systems reviewed & are unremarkable except as noted in HPI and below PMFSH Past Medical History Medical History (Updated 03/28/24 @ 06:19 by Ninoska Millan MD) Anxiety Charcot's joint of foot in type 2 diabetes mellitus Of the right foot Chronic obstructive pulmonary disease Coronary artery disease Left anterior descending stent 01/2019. 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 Peripheral vascular disease due to secondary diabetes Serotonin syndrome Suspected sleep apnea AHI 35 on apnea link on 06/16/2022. UTI (urinary tract infection) Surgical History Surgical History History of appendectomy History of section x3 History of hysterectomy Partial, ovaries retained. Due to cervical changes. History of tonsillectomy and adenoidectomy History of vertebroplasty Hx of BKA Right 11/19/20 at [facility] S/P CABG x 5 w/MVR and left atrial appendage ligation Status post cholecystectomy Stented coronary artery X1 Family History Family History Sibling Diabetes mellitus Mother Heart failure Cardiomegaly Arthritis Atrial fibrillation Family history of osteoporosis Family history of Alzheimer's disease Hypertension Cardiomyopathy Acute myocardial infarction History of heart artery stent Congestive heart failure Daughter Anxiety Father Esophagus cancer Cancer of spinal column Social History Social History Social History: The patient is . The patient had 4 children and 1 of her daughters is now. She is disabled. She is a former smoker. She denies any alcohol marijuana or illicit drugs. Primarily wheelchair-bound. Surrogate medical decision maker: Jass Arciniega, son. Code status: Full code. Smoking packs per day: 1.5 Smoking cigarettes per day: 30.0 Years smoked: 20 Smoking
[2024-03-28 03:54] LABS: Add Urine Microscopic? YES; Appearance Urine Clear (Clear); Bacteria Urine None Seen /hpf; Bilirubin Urine Negative (Negative); Blood Urine Non-Hemolyzed Trace (Negative); Color Urine Yellow (Yellow); Glucose Urine UA 3+ mg/dL (Negative); Ketones Urine Negative (Negative); Leukocyte Esterase Ur Negative LEU/UL (Negative); Nitrate Urine Negative (Negative); Non Pathogenic Casts 0-2; Protein Urine 2+ mg/dL (Negative); RBC Urine 0-2 /hpf (0-2); Specific Grav Ur 1.042 (1.001-1.035); Squamous Epithelial Cell Urine None Seen /hpf (Few); WBC Urine 0-5 /hpf (0-3); pH Urine 5.5 (5.0-9.0)
[2024-03-28 06:34] LABS: Partial Thromboplastin Time 25.7 Seconds (22.3-36.8)
[2024-03-28] MEDS: LORazepam INJ (*CRX) 2 MG/ML VIAL 0.5 MG IV PUSH (06:35)
[2024-03-28 06:58] LABS: Hepatitis B Surface Antigen Negative (Negative)
[2024-03-28 07:04] LABS: HAV RESULT Negative (Negative); Hepatitis B Core IgM Result Negative (Negative)
[2024-03-28 07:16] LABS: Hepatitis C Virus Antibody Negative (Negative)
--- NOTE | 2024-03-28 07:27 | PM.IMHP ---
H&P: HPI History of Present Illness Date/Time: 03/28/24 07:27 Chief Complaint: Abdominal pain Narrative: This is a 58-year-old female with a past medical history significant for anxiety, COPD, type 2 diabetes, coronary artery disease s/p 5 vessel CABG, CHF with EF 20-25% (pacemaker,defib??)depression, peripheral arterial disease with right BKA, who presented to the emergency room with complaints of abdominal pain. History is somewhat difficult to obtain as the patient is rather lethargic in frequently falls asleep during our conversation. She requires tactile stimulation to keep her awake. She does say that she has had right upper quadrant abdominal pain for the last 4 days. Last night she had 1 episode of nausea with vomiting that she describes as bile. She is not taking any Tylenol or ibuprofen at home for the pain. Pain is worse with movement, cough, deep inspiration. She does report chronic shortness of breath as she has a diagnosis of COPD and is on 2 L of oxygen at night. She denies increased cough or sputum production. She has + 3 pitting edema to her left lower extremity. She says she was recently at [facility] 3 weeks ago for increased swelling and her Lasix was stopped during that admission. No complaints of headache, dizziness, sore throat, fever, chills, constipation or diarrhea. In the emergency room labs were fairly unremarkable however her glucose was 373. Urinalysis showed specific gravity of 1.042, 2+ protein, 3+ glucose. A CT of her abdomen and pelvis was completed and showed mild pulmonary edema, small right and moderate size left pleural effusion and a 3.3 cm mass in the left hepatic lobe which is a new finding from March of 2022. There were concerns for hepatocellular carcinoma. Her vital signs were stable blood pressure 104/75, pulse 84. She received IV Dilaudid in the emergency room for her pain. She was admitted to the hospitalist service for further workup of her abdominal pain. A liver biopsy was ordered by the emergency room. GI has been consulted and recommendations are appreciated. Review of Systems Review of Systems: All systems reviewed & are unremarkable except as noted in HPI and below PMFSH Past Medical History Medical History Anxiety Charcot's joint of foot in type 2 diabetes mellitus Of the right foot Chronic obstructive pulmonary disease wears 2 L NC at night only Coronary artery disease Left anterior descending stent 01/2019. 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 Peripheral vascular disease due to secondary diabetes Presence of combination internal cardiac defibrillator (ICD) and pacemaker Serotonin syndrome Suspected sleep apnea AHI 35 on apnea link on 06/16/2022. UTI (urinary tract infection) Surgical History Surgical History History of appendectomy History of section x3 History of hysterectomy Partial, ovaries retained. Due to cervical changes. History of tonsillectomy and adenoidectomy History of vertebroplasty Hx of BKA Right 11/19/20 at [facility] S/P CABG x 5 w/MVR and left atrial appendage ligation Status post cholecystectomy Stented coronary artery X1 Family History Family History Sibling Diabetes mellitus Mother Heart failure Cardiomegaly Arthritis Atrial fibrillation Family history of osteoporosis Family history of Alzheimer's disease Hypertension Cardiomyopathy Acu
--- NOTE | 2024-03-28 07:54 | ADMGEN ---
This patient, Tiff Vaughn, was admitted to Medical Room 243-. Patient/family oriented to hospital policies and general routines including ID bracelet, bed and alarms, visiting hours, pain management, procedures, bathroom and other care routines, personal items, smoking policy, room service/diet, and visiting hours. Information on how to activate the Rapid Response Team has been discussed. Patient/Family are encouraged to report perceived risks to care and to ask questions if they do not understand what they are told or what they should do.
--- NOTE | 2024-03-28 10:47 | P.CONGI_ITS ---
I, Miah Ching MD, have provided a substantive portion of the care of this patient and discussed the patient with my Nurse Practitioner. I have reviewed any new relevant radiographic and laboratory results including medications. I agree with her documentation as noted below.?I personally performed the medical decision making and much of the history and exam for this encounter. briefly, she has several comorbidities including CAD, cardiomyopathy with EF 20%, PAD s/p Rt BKA on eliquis and plavix. She is not best historian but here with more abdomina pain. CT scan showed 3 cm mass in liver can not rule out malignancy (normal liver enzymes), also nausea and poor appetite last few days. She initially was unsure about EGD but after she talked to me she is agreeable. Plan is to hold blood thinners and ask radiology to get liver biopsy (could be also metastatic disease based on report), EGD in am and AFP level pending (no h/o cirrhosis, normal liver enzymes) Assessment and Plan Assessment and plan (1) Epigastric abdominal pain: Code(s): R10.13 - Epigastric pain Status: Acute (2) Decreased appetite: Code(s): R63.0 - Anorexia Status: Acute (3) Liver mass: Code(s): R16.0 - Hepatomegaly, not elsewhere classified Status: Acute Plan 1. Epigastric abdominal pain/decreased appetite: Patient has never had an EGD and states that she will never have one . Patient complains of epigastric abdominal pain that is sharp and severe at times. This pain has been occurring for 4 days and has no correlation with food intake or bowel movements. She had a 1 time episode of nausea without vomiting. She was unable to say if she has been taking NSAIDs regularly at home. Both her father and paternal grandfather had esophageal cancer. * Since patient is declining endoscopic evaluation I will start patient on treatment for peptic ulcer disease empirically * Protonix 40 mg daily and Carafate 1 g ac/hs * will continue to monitor 2. Abnormal imaging liver/ liver mass: Patient on Eliquis and she is unable to say when she took her last dose of Eliquis. Patient has a history of liver transaminase elevation since November of 2023 but LFTs this admission were normal showing total bilirubin 0.7, AST 20, ALT 12, alkaline phosphatase 115 , INR 1.[address] on admission showed a 3.3 cm mass in the left hepatic lobe. CT without contrast and ultrasound both performed in November 2023 showed no abnormal liver findings. a CT in March 2022 showed an indeterminate hypoattenuating lesion in the liver and follow-up MRI showed normal-appearing liver and findings on CT were thought to be transient focal steatosis. * Hold off on liver biopsy at this time as there is contraindications to biopsy depending on etiology of liver mass * discussed more detailed imaging such as MRI but patient states that she has metal in her leg which are new since her last MRI, but i was unable to find any imaging to confirm this. Will further investigate what advanced imaging options we have for the patient * AFP ordered and if elevated would increase suspicion for HCC * best option for further evaluation would be EUS but this would have to be scheduled outpatient at another facility Thank you very much for allowing me to share in the care this very nice patient. This report may have been done utilizing a voice recognition system. Attempts have been made to correct errors. However, there may be uncorrected grammatical, spelling, and recognition errors present. GI Consult Note Consult date/time: 03/28/24 10:47 Reason for consult:
--- NOTE | 2024-03-28 10:47 | WPDGICN ---
Assessment and Plan Assessment and plan (1) Epigastric abdominal pain: Code(s): R10.13 - Epigastric pain Status: Acute (2) Decreased appetite: Code(s): R63.0 - Anorexia Status: Acute (3) Liver mass: Code(s): R16.0 - Hepatomegaly, not elsewhere classified Status: Acute Plan 1. Epigastric abdominal pain/decreased appetite: Patient has never had an EGD and states that she will never have one . Patient complains of epigastric abdominal pain that is sharp and severe at times. This pain has been occurring for 4 days and has no correlation with food intake or bowel movements. She had a 1 time episode of nausea without vomiting. She was unable to say if she has been taking NSAIDs regularly at home. Both her father and paternal grandfather had esophageal cancer. Since patient is declining endoscopic evaluation I will start patient on treatment for peptic ulcer disease empirically Protonix 40 mg daily and Carafate 1 g ac/hs will continue to monitor 2. Abnormal imaging liver/ liver mass: Patient on Eliquis and she is unable to say when she took her last dose of Eliquis. Patient has a history of liver transaminase elevation since November of 2023 but LFTs this admission were normal showing total bilirubin 0.7, AST 20, ALT 12, alkaline phosphatase 115 , INR 1.[address] on admission showed a 3.3 cm mass in the left hepatic lobe. CT without contrast and ultrasound both performed in November 2023 showed no abnormal liver findings. a CT in March 2022 showed an indeterminate hypoattenuating lesion in the liver and follow-up MRI showed normal-appearing liver and findings on CT were thought to be transient focal steatosis. Hold off on liver biopsy at this time as there is contraindications to biopsy depending on etiology of liver mass discussed more detailed imaging such as MRI but patient states that she has metal in her leg which are new since her last MRI, but i was unable to find any imaging to confirm this. Will further investigate what advanced imaging options we have for the patient AFP ordered and if elevated would increase suspicion for HCC best option for further evaluation would be EUS but this would have to be scheduled outpatient at another facility Thank you very much for allowing me to share in the care this very nice patient. This report may have been done utilizing a voice recognition system. Attempts have been made to correct errors. However, there may be uncorrected grammatical, spelling, and recognition errors present. GI Consult Note Consult date/time: 03/28/24 10:47 Reason for consult: abdominal pain and liver mass HPI: This is a pleasant 61 year old female with a past medical surgical history of anxiety, COPD, type 2 diabetes, coronary artery disease s/p 5 vessel CABG, CHF with EF 20-25% (pacemaker,defib??)depression, peripheral arterial disease with right BKA, who presented to the emergency room with complaints of abdominal pain. History is somewhat difficult to obtain as the patient is rather lethargic in frequently falls asleep during our conversation. She presented to the ER room 03/24/2024 with complaints of sharp epigastric pain for 4 days. GI consulted for epigastric pain. She reports the pain is sharp in character, located in the epigastric region. She had one episode of nausea but no vomiting. Denies bloating, dysphagia, heartburn, weight loss, diarrhea, hematochezia or melena. Bowel movements are regular, daily and formed. Last bowel movement was yesterday and felt like she emptied completely. Abdominal pain has no direct correlation with bowel movements or eating. She has been having poor PO intake for the past 4 days due to pain, patient states My appetite's really pretty icky right now. Denies any previous EGDs or colonoscopies and refuses to have any in the future - No. I never will. Reports quitting alcohol in 2006 after a binge drinking episode. Quit smo
[2024-03-28 11:11] LABS: Ammonia < 9 umol/L (9-30)
[2024-03-28] MEDS: PANTOPRAZOLE 40 MG TABLET PO (11:12)
[2024-03-28] MEDS: FUROSEMIDE INJ 40 MG/4 ML VIAL IV PUSH (11:13)
[2024-03-28 11:21] LABS: NT Pro B Type Natriuretic Pept 4320 pg/mL (19.9-100)
[2024-03-28 11:52] LABS: Glucose Point of Care 239 mg/dl (65-105)
[2024-03-28] MEDS: INSULIN ASPART (*BKC) 100 UNITS/ML SUB-Q (12:00)
[2024-03-28] MEDS: SUCRALFATE SUSP 100 MG/ML 10 ML UDC 1000 MG PO ×2 (12:18→17:07)
[2024-03-28] MEDS: oxyCODONE HCL (*CRX) 5 MG TAB IR PO (15:11)
[2024-03-28 17:03] LABS: Glucose Point of Care 198 mg/dl (65-105)
[2024-03-28] MEDS: ALPRAZolam (*CRX) 0.5 MG TABLET PO (19:54)
[2024-03-28] MEDS: PREGABALIN (*CRX) 50 MG CAPSULE PO (20:21)
[2024-03-28] MEDS: hydrOXYzine HCL 25 MG TABLET PO (21:20)
[2024-03-28 23:39] LABS: Glucose Point of Care 170 mg/dl (65-105)
[2024-03-29 04:53] VITALS: BP 120/56; PULSE 91; RESP 18; TEMP 36.8; O2SAT 100
[2024-03-29] MEDS: HYDROmorphone HCL INJ (*CRX) 1 MG/ML SYR 0.5 MG IV PUSH ×4 (04:56→21:00)
[2024-03-29] MEDS: oxyCODONE HCL (*CRX) 5 MG TAB IR PO (04:59)
[2024-03-29] MEDS: LEVOTHYROXINE SODIUM 50 MCG TABLET PO (05:33)
[2024-03-29 06:06] LABS: Glucose Point of Care 152 mg/dl (65-105)
[2024-03-29 06:10] LABS: Basophils Absolute Auto 0.1 K/mm3 (0.0-0.1); Eosinophils Absolute Auto 0.2 K/mm3 (0-0.3); Eosinophils Percent Auto 2.5 % (0-4.4); Hematocrit 43.4 % (37.0-47.0); Hemoglobin 12.5 g/dL (12.0-15.0); Immature Granulocyte Absolute 0.02 K/mm3 (0.00-0.031); Immature Granulocyte Percent A 0.3 % (0-0.5); Immature Platelet Fraction Pct 7.4 % (0.9-11.2); Lymphocytes Absolute Auto 1.44 K/mm3 (0.9-3.2); Lymphocytes Percent Auto 18.6 % (18.3-44.2); Mean Corpuscular HGB Conc 28.8 g/dl (32-36); Mean Corpuscular Volume 76.5 fl (80-100); Mean Platelet Volume 10.7 fl (7.4-10.4); Monocytes Absolute Auto 0.7 K/mm3 (0.1-0.6); Monocytes Percent Auto 8.4 % (2.6-8.5); Neutrophils Absolute Auto 5.4 K/mm3 (1.3-6.7); Neutrophils Percent Auto 69.2 % (45.5-73.1); Platelet Count Result 187 k/mm3 (150-375); Red Blood Count 5.67 M/mm3 (4.2-5.4); Red Cell Distribution Width 18.7 % (11.5-14.5); White Blood Count 7.7 K/mm3 (4.5-10.0)
[2024-03-29 06:18] LABS: Alanine Aminotransferase 13 U/L (6-35); Albumin Level 3.6 g/dL (3.5-5.1); Alkaline Phosphatase 110 U/L (38-126); Anion Gap 13 mmol/L (4-12); Aspartate Amino Transferase 33 U/L (14-36); Bilirubin,Total 0.8 mg/dL (0.2-1.3); Blood Urea Nitrogen 22 mg/dL (7-17); Calcium 8.6 mg/dL (8.4-10.2); Carbon Dioxide 18 mmol/L (22-30); Chloride 107 mmol/L (98-107); Estimated CRCL calculation 55 ml/min; Estimated Glomerular Filt Rate > 60; Glucose 144 mg/dL (65-110); Magnesium 2.2 mg/dL (1.6-2.3); Sodium 138 mmol/L (137-145)
--- NOTE | 2024-03-29 07:30 | P.PNIM_ITS ---
Progress Note: A&P Assessment and Plan (1) Acute respiratory failure with hypoxia: Code(s): J96.01 - Acute respiratory failure with hypoxia Status: Acute (2) Abdominal pain: Code(s): R10.9 - Unspecified abdominal pain Status: Acute (3) Acute on chronic combined systolic (congestive) and diastolic (congestive) heart failure: Code(s): I50.43 - Acute on chronic combined systolic (congestive) and diastolic (congestive) heart failure Status: Acute Plan Acute Respiratory failure with hypoxia * HX of HF 20-25% EF likely secondary to HF * CT ABD showed bilateral pleural effusions * CXR Cardiomegaly with mild interstitial edema. * 2 L nasal cannula wean as tolerated wears 2L at night currently * 40 of IV Lasix daily * Spironolactone * Incentive spirometer ABD Pain/N/V/Liver Mass * CT abdomen and pelvis in the emergency room showed 3.3 cm mass in the left hepatic lobe that was new from March of 2022. * No reports of bloody stool or bloody emesis. Last bowel movement was yesterday. She has a recent history of C diff infection. Repeat C diff testing. * Protonix daily * Liver biopsy was ordered by the emergency room. Eliquis on hold * GI was consulted given presence of a liver mass, recs are appreciated 03/29/2023: * EGD held today GI would like biopsy results first due to patient low EF * AFP pending * liver biopsy pending * PPI/Carafate added by GI Acute on chronic combined systolic and diastolic heart failure * BNP 4320 * cardiology consulted * IV Lasix daily * Spironolactone * monitor renal function during diuresis * Echo from October 18, 2019 for showed severe global systolic dysfunction with an estimated EF of 20-25%. * chest x-ray Pending * CT ABD showed bilateral pleural effusions * Daily weight. * fluid restriction * elevate/Jordon wrap legs if needed * Add Entresto?? will contact patient lead manufacturing engineering tech Diabetes * Accu-Cheks a.c. HS * sliding scale insulin * hold oral diabetic medications * resume patient's home long-acting * Hemoglobin A1c 8.0 * Diabetic diet * encourage lifestyle modifications and weight loss * Optimize Jordon inhibitors and statins. * Watch for hypoglycemia/hypoglycemic protocol ordered Code status: Full code per patient DVT prophylaxis: Eliquis on hold for procedure/SCD's Stress ulcer prophylaxis: Protonix 40 daily PT/OT notes: PT/OT Pending Disposition: Patient continues admission to the medical unit plan for EGD and liver biopsy. Will need to continue diuresis and possible thoracentesis. Continue to wean oxygen per patient her plan for discharge is to return home. Time Spent With Patient Time with patient: 15 - 25 minutes Subjective Date/time seen: 03/29/24 07:30 Interval history: Admission: Medical Chart This is a 58-year-old female with a past medical history significant for anxiety, COPD, type 2 diabetes, coronary artery disease s/p 5 vessel CABG, CHF with EF 20-25% (pacemaker,defib??)depression, peripheral arterial disease with right BKA, who presented to the emergency room with complaints of abdominal pain. History is somewhat difficult to obtain as the patient is rather lethargic in frequently falls asleep during our conversation. She requires tactile stimulation to keep her awake. She does say that she has had right upper quadrant abdominal pain for the last 4 days. Last night she had 1 episode of nausea with vomiting that she describes as bile. A CT of her abdomen and pelvis was completed and showed mild pulmona
--- NOTE | 2024-03-29 07:30 | PM.IMPN ---
Progress Note: A&P Assessment and Plan (1) Acute respiratory failure with hypoxia: Code(s): J96.01 - Acute respiratory failure with hypoxia Status: Acute (2) Abdominal pain: Code(s): R10.9 - Unspecified abdominal pain Status: Acute (3) Acute on chronic combined systolic (congestive) and diastolic (congestive) heart failure: Code(s): I50.43 - Acute on chronic combined systolic (congestive) and diastolic (congestive) heart failure Status: Acute Plan Acute Respiratory failure with hypoxia HX of HF 20-25% EF likely secondary to HF CT ABD showed bilateral pleural effusions CXR Cardiomegaly with mild interstitial edema. 2 L nasal cannula wean as tolerated wears 2L at night currently 40 of IV Lasix daily Spironolactone Incentive spirometer ABD Pain/N/V/Liver Mass CT abdomen and pelvis in the emergency room showed 3.3 cm mass in the left hepatic lobe that was new from March of 2022. No reports of bloody stool or bloody emesis. Last bowel movement was yesterday. She has a recent history of C diff infection. Repeat C diff testing. Protonix daily Liver biopsy was ordered by the emergency room. Eliquis on hold GI was consulted given presence of a liver mass, recs are appreciated 03/29/2023: EGD held today GI would like biopsy results first due to patient low EF AFP pending liver biopsy pending PPI/Carafate added by GI Acute on chronic combined systolic and diastolic heart failure BNP 4320 cardiology consulted IV Lasix daily Spironolactone monitor renal function during diuresis Echo from October 18, 2019 for showed severe global systolic dysfunction with an estimated EF of 20-25%. chest x-ray Pending CT ABD showed bilateral pleural effusions Daily weight. fluid restriction elevate/Jordon wrap legs if needed Add Entresto?? 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 HS sliding scale insulin hold oral diabetic medications resume patient's home long-acting Hemoglobin A1c 8.0 Diabetic diet encourage lifestyle modifications and weight loss Optimize Jordon inhibitors and statins. Watch for hypoglycemia/hypoglycemic protocol ordered Code status: Full code per patient DVT prophylaxis: Eliquis on hold for procedure/SCD's Stress ulcer prophylaxis: Protonix 40 daily PT/OT notes: PT/OT Pending Disposition: Patient continues admission to the medical unit plan for EGD and liver biopsy. Will need to continue diuresis and possible thoracentesis. Continue to wean oxygen per patient her plan for discharge is to return home. Time Spent With Patient Time with patient: 15 - 25 minutes Subjective Date/time seen: 03/29/24 07:30 Interval history: Admission: Medical Chart This is a 58-year-old female with a past medical history significant for anxiety, COPD, type 2 diabetes, coronary artery disease s/p 5 vessel CABG, CHF with EF 20-25% (pacemaker,defib??)depression, peripheral arterial disease with right BKA, who presented to the emergency room with complaints of abdominal pain. History is somewhat difficult to obtain as the patient is rather lethargic in frequently falls asleep during our conversation. She requires tactile stimulation to keep her awake. She does say that she has had right upper quadrant abdominal pain for the last 4 days. Last night she had 1 episode of nausea with vomiting that she describes as bile. A CT of her abdomen and pelvis was completed and showed mild pulmonary edema, small right and moderate size left pleural effusion and a 3.3 cm mass in the left hepatic lobe which is a new finding from March of 2022. There were concerns for hepatocellular carcinoma. 03/29/2024: Patient scheduled for EGD today on hold waiting on biopsy results, joanne on hold for liver biopsy. Patient lethargic and falling asleep during assessment but did report continued pain to the RUQ of her ABD. Patient on 2L O2 which she currently w
[2024-03-29 07:36] VITALS: PULSE 85; RESP 16; O2SAT 98
[2024-03-29] MEDS: UMECLIDINIUM/VILANTEROL 62.5-25 MCG ELLIPTA 1 PUFF INHALATION (07:36)
[2024-03-29 07:51] LABS: Platelet Estimate Adequate (Adequate)
[2024-03-29 07:52] LABS: Anisocytosis 1+; Ovalocytes 1+; Schistocytes None Seen
[2024-03-29 08:00] VITALS: O2SAT 98
[2024-03-29 08:40] LABS: Glucose Point of Care 140 mg/dl (65-105)
[2024-03-29] MEDS: PANTOPRAZOLE 40 MG TABLET PO (08:50)
[2024-03-29] MEDS: FUROSEMIDE INJ 40 MG/4 ML VIAL IV PUSH (08:51)
--- NOTE | 2024-03-29 09:30 | PC.NURSE ---
Patient's chart including patient's recent discharge notes from 03/17/[address] Alves said she was too sick from a cardiac standpoint to receive anesthesia. Dr. Florez notified of anesthesia's decision.
[2024-03-29 12:39] LABS: Glucose Point of Care 191 mg/dl (65-105)
[2024-03-29 14:00] VITALS: BP 118/60; PULSE 88; RESP 18; TEMP 36.6; O2SAT 100
--- NOTE | 2024-03-29 16:10 | WPDGIPROGNO ---
Progress Note: A&P Assessment and Plan (1) Liver mass: Code(s): R16.0 - Hepatomegaly, not elsewhere classified Status: Acute Assessment and Plan: s/p liver biopsy ? malignancy (2) Epigastric abdominal pain: Code(s): R10.13 - Epigastric pain Status: Acute Assessment and Plan: ? from liver mass she will be high risk to undergo anesthesia given severe ischemic cardiomyopathy with EF 20% hold off EGD for now (3) Decreased appetite: Code(s): R63.0 - Anorexia Status: Acute (4) Ischemic cardiomyopathy: Code(s): I25.5 - Ischemic cardiomyopathy Status: Acute Assessment and Plan: by primary s/p icd Subjective Date/time seen: 03/29/24 16:10 Interval history: still with similar pain Review of Systems Review of Systems: All systems reviewed & are unremarkable except as noted in HPI and below Exam Const: General: comfortable and no acute distress Other: using oxygen HENMT: Face/Nose/Sinus: Normal nares present Eyes: General: appearance normal, both eyes and all related structures Neck: Neck: supple Resp: Auscultation: clear to auscultation bilaterally Cardio: Rate: regular rate Rhythm: regular rhythm GI: Inspection: non-distended GI Palp: Yes Soft to palpation and Yes Tenderness to palpation present (GI) (in epigastric ) Auscultation: normal bowel sounds Skin: General skin exam: normal color Neuro: Speech: normal speech Extrem: General: normal to inspection Psych: Affect: Anxious affect present Objective Data Vital Signs Vital Signs: Vital Signs - 24 hr 03/28/24 16:26 03/28/24 20:19 03/28/24 20:10 Temperature 97.7 F 98.0 F Pulse Rate 140 H 86 Respiratory Rate 18 18 Blood Pressure 105/68 113/66 Pulse Oximetry 100 100 100 Oxygen Delivery Nasal Cannula Oxygen Flow Rate 2 Fraction of Inspired Oxygen 03/29/24 04:53 03/29/24 07:36 03/29/24 07:36 Temperature 98.2 F Pulse Rate 91 85 85 Respiratory Rate 18 16 16 Blood Pressure 120/56 L Pulse Oximetry 100 98 Oxygen Delivery Nasal Cannula Oxygen Flow Rate 2 Fraction of Inspired Oxygen 28 03/29/24 08:00 03/29/24 14:00 Temperature 98 F Pulse Rate 88 Respiratory Rate 18 Blood Pressure 118/60 Pulse Oximetry 98 100 Oxygen Delivery Nasal Cannula Oxygen Flow Rate 2 Fraction of Inspired Oxygen Intake/Output Intake/Output: Intake & Output 03/26/24 03/27/24 03/28/24 03/29/24 23:59 23:59 23:59 23:59 Intake Total 0 Output Total 400 400 Balance -400 -400 Meds/Results Medications: Active Medications Generic Name Dose Route Start Last Admin Trade Name Freq PRN Reason Stop Dose Admin Alprazolam 0.5 mg 03/28/24 15:17 03/28/24 19:54 Alprazolam (*Crx) 0.5 Mg Tablet PO 0.5 mg BID PRN Administration Anxiety Apixaban 5 mg 03/28/24 21:00 Apixaban 5 Mg Tablet PO Q12HR LIBBY Clopidogrel Bisulfate 75 mg 03/29/24 09:00 03/29/24 08:50 Clopidogrel Bisulfate 75 Mg Tablet PO Not Given QAM LIBBY Dextrose 12.5 gm 03/28/24 10:35 Dextrose 50% 25 Gm/50 Ml Syringe IV PUSH PRN PRN Hypoglycemia Protocol Duloxetine HCl 60 mg 03/29/24 09:00 03/29/24 08:50 Duloxetine Hcl 60 Mg Capsule.Dr PO Not Given DAILY LIBBY Furosemide 40 mg 03/29/24 09:00 03/29/24 08:51 Furosemide Inj 40 Mg/4 Ml Vial IV PUSH 40 mg DAILY LIBBY Administration Glucagon 1 mg 03/28/24 10:35 Glucagon For Inj 1 Mg Vial IM PRN PRN Hypoglycemia Protocol Glucose 15 gm 03/28/24 10:35 Glucose Oral Gel 15 Gm Of Glucse In 37.5 Gm Tube PO PRN PRN Hypoglycemia Protocol Hydromorphone HCl 0.5 mg 03/28/24 15:21 03/29/24 14:13 Hydromorphone Hcl Inj (*Crx) 1 Mg/Ml Syr IV PUSH 0.5 mg Q3H PRN Administration Pain Rated 7-10 Dextrose 1,000 mls @ 100 mls/hr 03/28/24 10:35 Dextrose 5% 1,000 Ml IVPB PRN PRN Hypoglycemia Protocol
[2024-03-29 17:03] LABS: Glucose Point of Care 171 mg/dl (65-105)
[2024-03-29 20:00] VITALS: BP 113/56; PULSE 87; RESP 18; TEMP 36.7; O2SAT 98
[2024-03-29 21:00] VITALS: O2SAT 98
[2024-03-29] MEDS: PREGABALIN (*CRX) 50 MG CAPSULE PO (21:01)
[2024-03-30 00:09] LABS: Glucose Point of Care 260 mg/dl (65-105)
[2024-03-30] MEDS: INSULIN ASPART (*BKC) 100 UNITS/ML SUB-Q ×4 (00:12→17:08)
[2024-03-30] MEDS: HYDROmorphone HCL INJ (*CRX) 1 MG/ML SYR 0.5 MG IV PUSH ×3 (00:13→10:09)
[2024-03-30 05:10] VITALS: BP 123/68; PULSE 83; RESP 18; TEMP 36.8; O2SAT 98
[2024-03-30 05:36] LABS: Basophils Absolute Auto 0.1 K/mm3 (0.0-0.1); Eosinophils Absolute Auto 0.2 K/mm3 (0-0.3); Eosinophils Percent Auto 2.4 % (0-4.4); Hematocrit 42.7 % (37.0-47.0); Hemoglobin 12.4 g/dL (12.0-15.0); Immature Granulocyte Absolute 0.02 K/mm3 (0.00-0.031); Immature Granulocyte Percent A 0.3 % (0-0.5); Immature Platelet Fraction Pct 6.2 % (0.9-11.2); Lymphocytes Absolute Auto 1.27 K/mm3 (0.9-3.2); Lymphocytes Percent Auto 18.9 % (18.3-44.2); Mean Corpuscular Volume 75.8 fl (80-100); Mean Platelet Volume 10.8 fl (7.4-10.4); Monocytes Absolute Auto 0.6 K/mm3 (0.1-0.6); Monocytes Percent Auto 8.2 % (2.6-8.5); Neutrophils Absolute Auto 4.7 K/mm3 (1.3-6.7); Neutrophils Percent Auto 69.2 % (45.5-73.1); Platelet Count Result 210 k/mm3 (150-375); Red Blood Count 5.63 M/mm3 (4.2-5.4); Red Cell Distribution Width 18.7 % (11.5-14.5); White Blood Count 6.7 K/mm3 (4.5-10.0)
[2024-03-30] MEDS: LEVOTHYROXINE SODIUM 50 MCG TABLET PO (05:41)
[2024-03-30 05:55] LABS: Alanine Aminotransferase 14 U/L (6-35); Albumin Level 3.8 g/dL (3.5-5.1); Alkaline Phosphatase 113 U/L (38-126); Anion Gap 12 mmol/L (4-12); Aspartate Amino Transferase 25 U/L (14-36); Bilirubin,Total 0.6 mg/dL (0.2-1.3); Blood Urea Nitrogen 28 mg/dL (7-17); Calcium 8.5 mg/dL (8.4-10.2); Carbon Dioxide 24 mmol/L (22-30); Chloride 102 mmol/L (98-107); Estimated CRCL calculation 52 ml/min; Estimated Glomerular Filt Rate 51; Glucose 225 mg/dL (65-110); Potassium 4.1 mmol/L (3.4-5.0); Sodium 138 mmol/L (137-145)
[2024-03-30 05:58] LABS: Glucose Point of Care 235 mg/dl (65-105)
[2024-03-30 06:59] LABS: Anisocytosis 1+; Hypochromasia 1+; Platelet Estimate Adequate (Adequate)
[2024-03-30 07:00] LABS: Schistocytes None Seen
--- NOTE | 2024-03-30 07:30 | P.PNIM_ITS ---
Progress Note: A&P Assessment and Plan (1) Abdominal pain: Code(s): R10.9 - Unspecified abdominal pain Status: Acute (2) Acute on chronic combined systolic (congestive) and diastolic (congestive) heart failure: Code(s): I50.43 - Acute on chronic combined systolic (congestive) and diastolic (congestive) heart failure Status: Acute (3) Acute and chronic respiratory failure with hypoxia: Code(s): J96.21 - Acute and chronic respiratory failure with hypoxia Status: Acute Plan Acute on Chronis Respiratory failure with hypoxia-At Baseline * HX of HF 20-25% EF likely secondary to HF * CT ABD showed bilateral pleural effusions * CXR Cardiomegaly with mild interstitial edema. * 2 L nasal cannula wean as tolerated wears 2L at night currently * 40 of IV Lasix daily * Spironolactone * Incentive spirometer ABD Pain/N/V/Liver Mass * CT abdomen and pelvis in the emergency room showed 3.3 cm mass in the left hepatic lobe that was new from March of 2022. * No reports of bloody stool or bloody emesis. Last bowel movement was yesterday. She has a recent history of C diff infection. Repeat C diff testing. * Protonix daily * Liver biopsy was ordered by the emergency room. Eliquis on hold * GI was consulted given presence of a liver mass, recs are appreciated 03/29/2023: * EGD held today GI would like biopsy results first due to patient low EF * AFP pending * liver biopsy pending * PPI/Carafate added by GI 03/30/2024 * Liver biopsy pending * further intervention pending results Acute on chronic combined systolic and diastolic heart failure * BNP 4320 * cardiology consulted * IV Lasix daily * Spironolactone * ICD * monitor renal function during diuresis * Echo from October 18, 2019 for showed severe global systolic dysfunction with an estimated EF of 20-25%. * chest x-ray Pending * CT ABD showed bilateral pleural effusions * Daily weight. * fluid restriction * elevate/Jordon wrap legs if needed * Add Entresto?? will contact patient hair or beauty salon assistant 03/30/2024: * Spoke with patient hair or beauty salon assistant on medications * Started Entresto * monitor renal function * was on frusemide 80mg was stopped due to EVAN on last hospitalization Diabetes * Accu-Cheks a.c. HS * sliding scale insulin * hold oral diabetic medications * resume patient's home long-acting * Hemoglobin A1c 8.0 * Diabetic diet * encourage lifestyle modifications and weight loss * Optimize Jordon inhibitors and statins. * Watch for hypoglycemia/hypoglycemic protocol ordered Code status: Full code per patient DVT prophylaxis: Eliquis on hold for procedure/SCD's Stress ulcer prophylaxis: Protonix 40 daily PT/OT notes: PT/OT Pending Disposition: Patient continues admission to the medical unit plan for EGD and liver biopsy. Will need to continue diuresis and possible thoracentesis. Continue to wean oxygen per patient her plan for discharge is to return home. Time Spent With Patient Time with patient: 15 - 25 minutes Subjective Date/time seen: 03/30/24 07:30 Interval history: Admission: Medical Chart This is a 58-year-old female with a past medical history significant for anxiety, COPD, type 2 diabetes, coronary artery disease s/p 5 vessel CABG, CHF with EF 20-25% (pacemaker,defib??)depression, peripheral arterial disease with right BKA, who presented to the emergency room with complaints of abdominal pain. History is somewhat difficult to obtain as the patient is rather lethargic
--- NOTE | 2024-03-30 07:30 | PM.IMPN ---
Progress Note: A&P Assessment and Plan (1) Abdominal pain: Code(s): R10.9 - Unspecified abdominal pain Status: Acute (2) Acute on chronic combined systolic (congestive) and diastolic (congestive) heart failure: Code(s): I50.43 - Acute on chronic combined systolic (congestive) and diastolic (congestive) heart failure Status: Acute (3) Acute and chronic respiratory failure with hypoxia: Code(s): J96.21 - Acute and chronic respiratory failure with hypoxia Status: Acute Plan Acute on Chronis Respiratory failure with hypoxia-At Baseline HX of HF 20-25% EF likely secondary to HF CT ABD showed bilateral pleural effusions CXR Cardiomegaly with mild interstitial edema. 2 L nasal cannula wean as tolerated wears 2L at night currently 40 of IV Lasix daily Spironolactone Incentive spirometer ABD Pain/N/V/Liver Mass CT abdomen and pelvis in the emergency room showed 3.3 cm mass in the left hepatic lobe that was new from March of 2022. No reports of bloody stool or bloody emesis. Last bowel movement was yesterday. She has a recent history of C diff infection. Repeat C diff testing. Protonix daily Liver biopsy was ordered by the emergency room. Eliquis on hold GI was consulted given presence of a liver mass, recs are appreciated 03/29/2023: EGD held today GI would like biopsy results first due to patient low EF AFP pending liver biopsy pending PPI/Carafate added by GI 03/30/2024 Liver biopsy pending further intervention pending results Acute on chronic combined systolic and diastolic heart failure BNP 4320 cardiology consulted IV Lasix daily Spironolactone ICD monitor renal function during diuresis Echo from October 18, 2019 for showed severe global systolic dysfunction with an estimated EF of 20-25%. chest x-ray Pending CT ABD showed bilateral pleural effusions Daily weight. fluid restriction elevate/Jordon wrap legs if needed Add Entresto?? will contact patient visual supervisor 03/30/2024: Spoke with patient visual supervisor on medications Started Entresto monitor renal function was on frusemide 80mg was stopped due to EVAN on last hospitalization Diabetes Accu-Cheks a.c. HS sliding scale insulin hold oral diabetic medications resume patient's home long-acting Hemoglobin A1c 8.0 Diabetic diet encourage lifestyle modifications and weight loss Optimize Jordon inhibitors and statins. Watch for hypoglycemia/hypoglycemic protocol ordered Code status: Full code per patient DVT prophylaxis: Eliquis on hold for procedure/SCD's Stress ulcer prophylaxis: Protonix 40 daily PT/OT notes: PT/OT Pending Disposition: Patient continues admission to the medical unit plan for EGD and liver biopsy. Will need to continue diuresis and possible thoracentesis. Continue to wean oxygen per patient her plan for discharge is to return home. Time Spent With Patient Time with patient: 15 - 25 minutes Subjective Date/time seen: 03/30/24 07:30 Interval history: Admission: Medical Chart This is a 58-year-old female with a past medical history significant for anxiety, COPD, type 2 diabetes, coronary artery disease s/p 5 vessel CABG, CHF with EF 20-25% (pacemaker,defib??)depression, peripheral arterial disease with right BKA, who presented to the emergency room with complaints of abdominal pain. History is somewhat difficult to obtain as the patient is rather lethargic in frequently falls asleep during our conversation. She requires tactile stimulation to keep her awake. She does say that she has had right upper quadrant abdominal pain for the last 4 days. Last night she had 1 episode of nausea with vomiting that she describes as bile. A CT of her abdomen and pelvis was completed and showed mild pulmonary edema, small right and moderate size left pleural effusion and a 3.3 cm mass in the left hepatic lobe which is a new finding from March of 2022. There wer
[2024-03-30 08:44] VITALS: O2SAT 98
[2024-03-30] MEDS: DULoxetine HCL 60 MG CAPSULE.DR PO (08:45)
[2024-03-30] MEDS: CLOPIDOGREL BISULFATE 75 MG TABLET PO (08:45)
[2024-03-30] MEDS: PREGABALIN (*CRX) 50 MG CAPSULE PO ×2 (08:45→20:21)
[2024-03-30] MEDS: FUROSEMIDE INJ 40 MG/4 ML VIAL IV PUSH (08:45)
[2024-03-30] MEDS: PANTOPRAZOLE 40 MG TABLET PO (08:45)
[2024-03-30 10:49] LABS: Alpha Fetoprotein Tumor Marker 2.8 ng/mL
[2024-03-30 11:45] LABS: Glucose Point of Care 260 mg/dl (65-105)
--- NOTE | 2024-03-30 12:43 | WPDGIPROGNO ---
Progress Note: A&P Assessment and Plan (1) Liver mass: Code(s): R16.0 - Hepatomegaly, not elsewhere classified Status: Acute Assessment and Plan: s/p liver biopsy ? malignancy, pending path report (2) Epigastric abdominal pain: Code(s): R10.13 - Epigastric pain Status: Acute Assessment and Plan: ? from liver mass she will be high risk to undergo anesthesia given severe ischemic cardiomyopathy with EF 20% hold off EGD for now (3) Decreased appetite: Code(s): R63.0 - Anorexia Status: Acute (4) Ischemic cardiomyopathy: Code(s): I25.5 - Ischemic cardiomyopathy Status: Acute Assessment and Plan: by primary s/p icd on diuretics Subjective Date/time seen: 03/30/24 12:43 Interval history: similar pain in upper abdomen, requesting more dilaudid, she is eating Review of Systems Review of Systems: All systems reviewed & are unremarkable except as noted in HPI and below Exam Const: General: comfortable and no acute distress HENMT: Face/Nose/Sinus: Normal nares present Eyes: General: appearance normal, both eyes and all related structures Neck: Neck: supple Resp: Auscultation: clear to auscultation bilaterally Cardio: Rate: regular rate Rhythm: regular rhythm GI: Inspection: non-distended GI Palp: Yes Soft to palpation and Yes Tenderness to palpation present (GI) (in epigastric and ruq) Auscultation: normal bowel sounds Skin: General skin exam: normal color Neuro: Speech: normal speech Extrem: General: normal to inspection Psych: Affect: Anxious affect present Objective Data Vital Signs Vital Signs: Vital Signs - 24 hr 03/29/24 14:00 03/29/24 20:00 03/29/24 21:00 Temperature 98 F 98.0 F Pulse Rate 88 87 Respiratory Rate 18 18 Blood Pressure 118/60 113/56 L Pulse Oximetry 100 98 98 Oxygen Delivery Nasal Cannula Oxygen Flow Rate 2 Fraction of Inspired Oxygen 03/30/24 05:10 03/30/24 08:44 03/30/24 08:00 Temperature 98.2 F Pulse Rate 83 Respiratory Rate 18 Blood Pressure 123/68 Pulse Oximetry 98 98 Oxygen Delivery Room Air Room Air Oxygen Flow Rate Fraction of Inspired Oxygen 21 Intake/Output Intake/Output: Intake & Output 03/27/24 03/28/24 03/29/24 03/30/24 23:59 23:59 23:59 23:59 Intake Total 240 570 Output Total 400 2900 500 Balance -400 -2660 70 Meds/Results Medications: Active Medications Generic Name Dose Route Start Last Admin Trade Name Freq PRN Reason Stop Dose Admin Alprazolam 0.5 mg 03/28/24 15:17 03/28/24 19:54 Alprazolam (*Crx) 0.5 Mg Tablet PO 0.5 mg BID PRN Administration Anxiety Apixaban 5 mg 03/28/24 21:00 Apixaban 5 Mg Tablet PO Q12HR LIBBY Clopidogrel Bisulfate 75 mg 03/29/24 09:00 03/30/24 08:45 Clopidogrel Bisulfate 75 Mg Tablet PO 75 mg QAM LIBBY Administration Dextrose 12.5 gm 03/28/24 10:35 Dextrose 50% 25 Gm/50 Ml Syringe IV PUSH PRN PRN Hypoglycemia Protocol Duloxetine HCl 60 mg 03/29/24 09:00 03/30/24 08:45 Duloxetine Hcl 60 Mg Capsule.Dr PO 60 mg DAILY LIBBY Administration Furosemide 40 mg 03/29/24 09:00 03/30/24 08:45 Furosemide Inj 40 Mg/4 Ml Vial IV PUSH 40 mg DAILY LIBBY Administration Glucagon 1 mg 03/28/24 10:35 Glucagon For Inj 1 Mg Vial IM PRN PRN Hypoglycemia Protocol Glucose 15 gm 03/28/24 10:35 Glucose Oral Gel 15 Gm Of Glucse In 37.5 Gm Tube PO PRN PRN Hypoglycemia Protocol Hydromorphone HCl 0.5 mg 03/28/24 15:21 03/30/24 10:09 Hydromorphone Hcl Inj (*Crx) 1 Mg/Ml Syr IV PUSH 0.5 mg Q3H PRN Administration Pain Rated 7-10 Dextrose 1,000 mls @ 100 mls/hr 03/28/24 10:35 Dextrose 5% 1,000 Ml IVPB PRN PRN Hypoglycemia Protocol Insulin Aspart 2 - 5 units 03/28/24 12:00 03/30/24 05:40 Insulin Aspart (*Bkc) 100 Units/Ml SUB-Q 2 units Q6HR LIBBY Administration
[2024-03-30] MEDS: oxyCODONE HCL (*CRX) 5 MG TAB IR PO (13:11)
[2024-03-30 14:00] VITALS: BP 118/60; PULSE 87; RESP 16; TEMP 36.7; O2SAT 97
[2024-03-30] MEDS: HYDROmorphone HCL INJ (*CRX) 1 MG/ML SYR IV PUSH ×2 (14:33→19:38)
[2024-03-30 16:43] LABS: Glucose Point of Care 202 mg/dl (65-105)
[2024-03-30 19:58] VITALS: BP 116/71; PULSE 85; RESP 20; TEMP 35.8; O2SAT 88
[2024-03-30 20:14] VITALS: O2SAT 100
[2024-03-30 20:15] VITALS: O2SAT 100
[2024-03-30] MEDS: SACUBITRIL/VALSARTAN 24-26 MG TABLET 1 TAB PO (20:20)
[2024-03-30 21:09] LABS: Glucose Point of Care 210 mg/dl (65-105)
[2024-03-30] MEDS: NEOMYCIN/POLYMYXIN/BACITR/HC OINT 15 GM TUBE 1 APPLIC TOPICAL (22:14)
[2024-03-30 23:54] LABS: Glucose Point of Care 206 mg/dl (65-105)
[2024-03-31] MEDS: INSULIN ASPART (*BKC) 100 UNITS/ML SUB-Q ×3 (00:13→21:36)
[2024-03-31] MEDS: HYDROmorphone HCL INJ (*CRX) 1 MG/ML SYR IV PUSH ×2 (00:20→04:26)
[2024-03-31 05:11] LABS: Basophils Absolute Auto 0.1 K/mm3 (0.0-0.1); Basophils Percent Auto 0.9 % (0.2-1.2); Eosinophils Absolute Auto 0.2 K/mm3 (0-0.3); Eosinophils Percent Auto 2.7 % (0-4.4); Hematocrit 43.1 % (37.0-47.0); Hemoglobin 12.3 g/dL (12.0-15.0); Immature Granulocyte Absolute 0.01 K/mm3 (0.00-0.031); Immature Granulocyte Percent A 0.2 % (0-0.5); Lymphocytes Absolute Auto 1.04 K/mm3 (0.9-3.2); Lymphocytes Percent Auto 15.9 % (18.3-44.2); Mean Corpuscular HGB Conc 28.5 g/dl (32-36); Mean Corpuscular Hemoglobin 21.8 pg (26-34); Mean Corpuscular Volume 76.6 fl (80-100); Monocytes Absolute Auto 0.6 K/mm3 (0.1-0.6); Neutrophils Absolute Auto 4.7 K/mm3 (1.3-6.7); Neutrophils Percent Auto 71.3 % (45.5-73.1); Platelet Count Result 206 k/mm3 (150-375); Red Blood Count 5.63 M/mm3 (4.2-5.4); Red Cell Distribution Width 18.4 % (11.5-14.5); White Blood Count 6.6 K/mm3 (4.5-10.0)
[2024-03-31 05:15] VITALS: BP 109/56; PULSE 73; RESP 18; TEMP 36.3; O2SAT 86
[2024-03-31 05:27] LABS: Alanine Aminotransferase 12 U/L (6-35); Albumin Level 4.1 g/dL (3.5-5.1); Alkaline Phosphatase 110 U/L (38-126); Anion Gap 11 mmol/L (4-12); Aspartate Amino Transferase 26 U/L (14-36); Bilirubin,Total 0.6 mg/dL (0.2-1.3); Blood Urea Nitrogen 32 mg/dL (7-17); Calcium 8.8 mg/dL (8.4-10.2); Carbon Dioxide 25 mmol/L (22-30); Chloride 101 mmol/L (98-107); Estimated CRCL calculation 34 ml/min; Estimated Glomerular Filt Rate 35; Glucose 163 mg/dL (65-110); Potassium 4.4 mmol/L (3.4-5.0); Sodium 137 mmol/L (137-145)
[2024-03-31 05:30] VITALS: O2SAT 99
[2024-03-31] MEDS: LEVOTHYROXINE SODIUM 50 MCG TABLET PO (05:35)
[2024-03-31 05:47] LABS: Glucose Point of Care 151 mg/dl (65-105)
--- NOTE | 2024-03-31 05:56 | PC.NURSE ---
Left voicemail message with vascular access [phone] to attempt an IV on the patient after many failed attempts including with US imaging.
[2024-03-31 06:49] LABS: Anisocytosis 1+; Hypochromasia 1+; Platelet Estimate Adequate (Adequate); Schistocytes None Seen
[2024-03-31 07:51] VITALS: O2SAT 98
[2024-03-31 09:14] LABS: Glucose Point of Care 219 mg/dl (65-105)
[2024-03-31 09:21] VITALS: O2SAT 98
[2024-03-31] MEDS: CLOPIDOGREL BISULFATE 75 MG TABLET PO (09:30)
[2024-03-31] MEDS: DULoxetine HCL 60 MG CAPSULE.DR PO (09:30)
[2024-03-31] MEDS: PANTOPRAZOLE 40 MG TABLET PO (09:31)
[2024-03-31] MEDS: PREGABALIN (*CRX) 50 MG CAPSULE PO ×2 (09:31→21:20)
[2024-03-31] MEDS: FUROSEMIDE INJ 40 MG/4 ML VIAL IV PUSH (09:31)
[2024-03-31] MEDS: NEOMYCIN/POLYMYXIN/BACITR/HC OINT 15 GM TUBE 1 APPLIC TOPICAL ×2 (09:31→21:31)
[2024-03-31] MEDS: oxyCODONE HCL (*CRX) 5 MG TAB IR PO (09:45)
[2024-03-31 11:42] LABS: Glucose Point of Care 272 mg/dl (65-105)
--- NOTE | 2024-03-31 11:57 | WPDGIPROGNO ---
Progress Note: A&P Assessment and Plan (1) Liver mass: Code(s): R16.0 - Hepatomegaly, not elsewhere classified Status: Acute Assessment and Plan: s/p liver biopsy ? malignancy, still pending path report (2) Epigastric abdominal pain: Code(s): R10.13 - Epigastric pain Status: Acute Assessment and Plan: ? from liver mass she will be high risk to undergo anesthesia given severe ischemic cardiomyopathy with EF 20% hold off EGD for now (3) Decreased appetite: Code(s): R63.0 - Anorexia Status: Acute (4) Ischemic cardiomyopathy: Code(s): I25.5 - Ischemic cardiomyopathy Status: Acute Assessment and Plan: by primary s/p icd on diuretics Subjective Date/time seen: 03/31/24 11:57 Interval history: no changes, similar pain she is eating Review of Systems Review of Systems: All systems reviewed & are unremarkable except as noted in HPI and below Exam Const: General: comfortable and no acute distress HENMT: Face/Nose/Sinus: Normal nares present Eyes: General: appearance normal, both eyes and all related structures Neck: Neck: supple Resp: Auscultation: clear to auscultation bilaterally Cardio: Rate: regular rate Rhythm: regular rhythm GI: Inspection: non-distended GI Palp: Yes Soft to palpation and Yes Tenderness to palpation present (GI) (in epigastric and ruq) Auscultation: normal bowel sounds Skin: General skin exam: normal color Neuro: Speech: normal speech Extrem: General: normal to inspection Psych: Affect: Anxious affect present Objective Data Vital Signs Vital Signs: Vital Signs - 24 hr 03/30/24 14:00 03/30/24 19:58 03/30/24 20:14 Temperature 98.1 F 96.5 F L Pulse Rate 87 85 Respiratory Rate 16 20 Blood Pressure 118/60 116/71 Pulse Oximetry 97 88 L 100 Oxygen Delivery Oxygen Flow Rate 03/30/24 20:15 03/31/24 05:15 03/31/24 05:30 Temperature 97.3 F L Pulse Rate 73 Respiratory Rate 18 Blood Pressure 109/56 L Pulse Oximetry 100 86 L 99 Oxygen Delivery Nasal Cannula Oxygen Flow Rate 2 03/31/24 07:51 03/31/24 10:45 Temperature Pulse Rate Respiratory Rate Blood Pressure Pulse Oximetry 98 Oxygen Delivery Nasal Cannula Nasal Cannula Oxygen Flow Rate 2 2 Intake/Output Intake/Output: Intake & Output 03/28/24 03/29/24 03/30/24 03/31/24 23:59 23:59 23:59 23:59 Intake Total 240 930 200 Output Total 400 2900 1200 600 Balance -400 -2660 -270 -400 Meds/Results Medications: Active Medications Generic Name Dose Route Start Last Admin Trade Name Freq PRN Reason Stop Dose Admin Alprazolam 0.5 mg 03/28/24 15:17 03/28/24 19:54 Alprazolam (*Crx) 0.5 Mg Tablet PO 0.5 mg BID PRN Administration Anxiety Apixaban 5 mg 03/28/24 21:00 Apixaban 5 Mg Tablet PO Q12HR LIBBY Clopidogrel Bisulfate 75 mg 03/29/24 09:00 03/31/24 09:30 Clopidogrel Bisulfate 75 Mg Tablet PO 75 mg QAM LIBBY Administration Dextrose 12.5 gm 03/28/24 10:35 Dextrose 50% 25 Gm/50 Ml Syringe IV PUSH PRN PRN Hypoglycemia Protocol Duloxetine HCl 60 mg 03/29/24 09:00 03/31/24 09:30 Duloxetine Hcl 60 Mg Capsule.Dr PO 60 mg DAILY LIBBY Administration Furosemide 40 mg 03/29/24 09:00 03/31/24 09:31 Furosemide Inj 40 Mg/4 Ml Vial IV PUSH 40 mg DAILY LIBBY Administration Glucagon 1 mg 03/28/24 10:35 Glucagon For Inj 1 Mg Vial IM PRN PRN Hypoglycemia Protocol Glucose 15 gm 03/28/24 10:35 Glucose Oral Gel 15 Gm Of Glucse In 37.5 Gm Tube PO PRN PRN Hypoglycemia Protocol Hydromorphone HCl 1 mg 03/30/24 13:44 03/31/24 04:26 Hydromorphone Hcl Inj (*Crx) 1 Mg/Ml Syr IV PUSH 1 mg Q3H PRN Administration Pain Rated 7-10 Hydroxyzine HCl 25 mg 03/30/24 13:43 Hydroxyzine Hcl 25 Mg Tablet PO Q6H PRN Itching Dextrose 1,000 mls @ 100 mls/hr 03/28/24 10:35 Dextrose
--- NOTE | 2024-03-31 12:50 | P.PNIM_ITS ---
Progress Note: A&P Assessment and Plan (1) Abdominal pain: Code(s): R10.9 - Unspecified abdominal pain Status: Acute (2) Acute on chronic combined systolic (congestive) and diastolic (congestive) heart failure: Code(s): I50.43 - Acute on chronic combined systolic (congestive) and diastolic (congestive) heart failure Status: Acute (3) Acute and chronic respiratory failure with hypoxia: Code(s): J96.21 - Acute and chronic respiratory failure with hypoxia Status: Acute Plan Acute on Chronis Respiratory failure with hypoxia-At Baseline RESOLVED * HX of HF 20-25% EF likely secondary to HF * CT ABD showed bilateral pleural effusions * CXR Cardiomegaly with mild interstitial edema. * 2 L nasal cannula wean as tolerated wears 2L at night currently * 40 of IV Lasix daily * Spironolactone * Incentive spirometer ABD Pain/N/V/Liver Mass * CT abdomen and pelvis in the emergency room showed 3.3 cm mass in the left hepatic lobe that was new from March of 2022. * No reports of bloody stool or bloody emesis. Last bowel movement was yesterday. She has a recent history of C diff infection. Repeat C diff testing. * Protonix daily * Liver biopsy was ordered by the emergency room. Eliquis on hold * GI was consulted given presence of a liver mass, recs are appreciated 03/29/2023: * EGD held today GI would like biopsy results first due to patient low EF * AFP pending * liver biopsy pending * PPI/Carafate added by GI 03/30/2024 * Liver biopsy pending * further intervention pending results Acute on chronic combined systolic and diastolic heart failure * BNP 4320 * cardiology consulted * IV Lasix daily * Spironolactone * ICD * monitor renal function during diuresis * Echo from October 18, 2019 for showed severe global systolic dysfunction with an estimated EF of 20-25%. * chest x-ray Pending * CT ABD showed bilateral pleural effusions * Daily weight. * fluid restriction * elevate/Jordon wrap legs if needed * Add Entresto?? 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 HS * sliding scale insulin * hold oral diabetic medications * resume patient's home long-acting * Hemoglobin A1c 8.0 * Diabetic diet * encourage lifestyle modifications and weight loss * Optimize Jordon inhibitors and statins. * Watch for hypoglycemia/hypoglycemic protocol ordered Code status: Full code per patient DVT prophylaxis: Eliquis on hold for procedure/SCD's Stress ulcer prophylaxis: Protonix 40 daily PT/OT notes: PT/OT Pending Disposition: Patient continues admission to the medical unit plan for EGD and liver biopsy. Will need to continue diuresis and possible thoracentesis. Continue to wean oxygen per patient her plan for discharge is to return home. Time Spent With Patient Time with patient: 15 - 25 minutes Subjective Date/time seen: 03/31/24 12:50 Interval history: Admission: Medical Chart This is a 58-year-old female with a past medical history significant for anxiety, COPD, type 2 diabetes, coronary artery disease s/p 5 vessel CABG, CHF with EF 20-25% (pacemaker,defib??)depression, peripheral arterial disease with right BKA, who presented to the emergenc
--- NOTE | 2024-03-31 12:50 | PM.IMPN ---
Progress Note: A&P Assessment and Plan (1) Abdominal pain: Code(s): R10.9 - Unspecified abdominal pain Status: Acute (2) Acute on chronic combined systolic (congestive) and diastolic (congestive) heart failure: Code(s): I50.43 - Acute on chronic combined systolic (congestive) and diastolic (congestive) heart failure Status: Acute (3) Acute and chronic respiratory failure with hypoxia: Code(s): J96.21 - Acute and chronic respiratory failure with hypoxia Status: Acute Plan Acute on Chronis Respiratory failure with hypoxia-At Baseline RESOLVED HX of HF 20-25% EF likely secondary to HF CT ABD showed bilateral pleural effusions CXR Cardiomegaly with mild interstitial edema. 2 L nasal cannula wean as tolerated wears 2L at night currently 40 of IV Lasix daily Spironolactone Incentive spirometer ABD Pain/N/V/Liver Mass CT abdomen and pelvis in the emergency room showed 3.3 cm mass in the left hepatic lobe that was new from March of 2022. No reports of bloody stool or bloody emesis. Last bowel movement was yesterday. She has a recent history of C diff infection. Repeat C diff testing. Protonix daily Liver biopsy was ordered by the emergency room. Eliquis on hold GI was consulted given presence of a liver mass, recs are appreciated 03/29/2023: EGD held today GI would like biopsy results first due to patient low EF AFP pending liver biopsy pending PPI/Carafate added by GI 03/30/2024 Liver biopsy pending further intervention pending results Acute on chronic combined systolic and diastolic heart failure BNP 4320 cardiology consulted IV Lasix daily Spironolactone ICD monitor renal function during diuresis Echo from October 18, 2019 for showed severe global systolic dysfunction with an estimated EF of 20-25%. chest x-ray Pending CT ABD showed bilateral pleural effusions Daily weight. fluid restriction elevate/Jordon wrap legs if needed Add Entresto?? 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 HS sliding scale insulin hold oral diabetic medications resume patient's home long-acting Hemoglobin A1c 8.0 Diabetic diet encourage lifestyle modifications and weight loss Optimize Jordon inhibitors and statins. Watch for hypoglycemia/hypoglycemic protocol ordered Code status: Full code per patient DVT prophylaxis: Eliquis on hold for procedure/SCD's Stress ulcer prophylaxis: Protonix 40 daily PT/OT notes: PT/OT Pending Disposition: Patient continues admission to the medical unit plan for EGD and liver biopsy. Will need to continue diuresis and possible thoracentesis. Continue to wean oxygen per patient her plan for discharge is to return home. Time Spent With Patient Time with patient: 15 - 25 minutes Subjective Date/time seen: 03/31/24 12:50 Interval history: Admission: Medical Chart This is a 58-year-old female with a past medical history significant for anxiety, COPD, type 2 diabetes, coronary artery disease s/p 5 vessel CABG, CHF with EF 20-25% (pacemaker,defib??)depression, peripheral arterial disease with right BKA, who presented to the emergency room with complaints of abdominal pain. History is somewhat difficult to obtain as the patient is rather lethargic in frequently falls asleep during our conversation. She requires tactile stimulation to keep her awake. She does say that she has had right upper quadrant abdominal pain for the last 4 days. Last night she had 1 episode of nausea with vomiting that she describes as bile. A CT of her abdomen and pelvis was completed and showed mild pulmonary edema, small right and moderate size left ple
--- NOTE | 2024-03-31 12:56 | PCNFU ---
Nutrition Follow-Up Complete: Unintentional weight loss related to chronic disease as evidenced by -32 lb weight loss. -17%/4 months Diet advancement - Goal met, diabetic diet Optimize PO intake when diet is advanced - Progressing. Intakes improving to 20-100% Goal: Pt current nutrition is Diabetic consistent carb diet. Glucerna BID ordered. Nutrition recommendation: Discontinue supplement, pt does not want supplement and is not drinking. Last recorded weight is 75.1 kg. Bowel Motility: +1 BM 03/29/24 Labs Reviewed: GFR 35, BUN 32, Cre 1.5, Glu 163 Meds Noted: Protonix, carafate, Lasix Skin: No pressure injuries Additional Notes: Appetite is better. Pt starting to feel better. Does not like Glucerna so will discontinue order. Monitor diet orders, weights, labs, intakes, plan of care Follow up in 3 days
[2024-03-31 14:00] VITALS: BP 96/60; PULSE 79; RESP 16; TEMP 36.1; O2SAT 97
--- NOTE | 2024-03-31 15:49 | PCPTNOTE ---
On 03/31/24, the student, [Tere Nick], provided care and completed [facility] documentation on this patient. I have reviewed the student's documentation and agree with the findings.
[2024-03-31 17:15] LABS: Glucose Point of Care 192 mg/dl (65-105)
[2024-03-31 20:46] LABS: Glucose Point of Care 306 mg/dl (65-105)
[2024-03-31] MEDS: HYDROcodone/acetaminophen (*CRX) 7.5-325 MG TABLET 1 TAB PO (21:21)
[2024-03-31 22:00] VITALS: BP 97/42; PULSE 60; RESP 18; TEMP 36.3; O2SAT 94
[2024-04-01] VITALS (8 sets, daily range): BP systolic 95–132; BP diastolic 45–67; PULSE 77–84; RESP 16–18; TEMP 36.5–36.8; O2SAT 94–100
[2024-04-01] MEDS: HYDROmorphone HCL INJ (*CRX) 1 MG/ML SYR IV PUSH ×2 (01:21→04:50)
--- NOTE | 2024-04-01 01:48 | PC.NURSE ---
No urinary output recorded since 816 AM. Pt denies any sensation to urinate. Bladder scan performed, showing 847ml. Educated patient that if she was unable to void then she would need to have a catheter put in. Patient states she does not like catheters and will be refusing that, patient then urinated approx 400ml into purewick.
[2024-04-01 03:34] LABS: Glucose Point of Care 123 mg/dl (65-105)
[2024-04-01 05:01] LABS: Basophils Absolute Auto 0.1 K/mm3 (0.0-0.1); Basophils Percent Auto 1.1 % (0.2-1.2); Eosinophils Absolute Auto 0.2 K/mm3 (0-0.3); Eosinophils Percent Auto 3.1 % (0-4.4); Hematocrit 41.9 % (37.0-47.0); Hemoglobin 12.1 g/dL (12.0-15.0); Immature Granulocyte Absolute 0.02 K/mm3 (0.00-0.031); Immature Granulocyte Percent A 0.4 % (0-0.5); Lymphocytes Percent Auto 16.2 % (18.3-44.2); Mean Corpuscular HGB Conc 28.9 g/dl (32-36); Mean Corpuscular Hemoglobin 22.1 pg (26-34); Mean Corpuscular Volume 76.6 fl (80-100); Mean Platelet Volume 10.7 fl (7.4-10.4); Monocytes Absolute Auto 0.4 K/mm3 (0.1-0.6); Neutrophils Percent Auto 72.2 % (45.5-73.1); Platelet Count Result 218 k/mm3 (150-375); Red Blood Count 5.47 M/mm3 (4.2-5.4); Red Cell Distribution Width 18.6 % (11.5-14.5); White Blood Count 5.6 K/mm3 (4.5-10.0)
[2024-04-01 05:24] LABS: Anisocytosis 1+; Hypochromasia 1+; Platelet Estimate Adequate (Adequate); Schistocytes None Seen
[2024-04-01 05:25] LABS: Alanine Aminotransferase 11 U/L (6-35); Albumin Level 3.4 g/dL (3.5-5.1); Alkaline Phosphatase 83 U/L (38-126); Anion Gap 8 mmol/L (4-12); Aspartate Amino Transferase 25 U/L (14-36); Bilirubin,Total 0.6 mg/dL (0.2-1.3); Blood Urea Nitrogen 37 mg/dL (7-17); Calcium 8.6 mg/dL (8.4-10.2); Carbon Dioxide 27 mmol/L (22-30); Chloride 101 mmol/L (98-107); Estimated CRCL calculation 34 ml/min; Estimated Glomerular Filt Rate 35; Glucose 217 mg/dL (65-110); Magnesium 1.8 mg/dL (1.6-2.3); Potassium 4.6 mmol/L (3.4-5.0); Sodium 136 mmol/L (137-145)
[2024-04-01] MEDS: LEVOTHYROXINE SODIUM 50 MCG TABLET PO (05:33)
[2024-04-01] MEDS: UMECLIDINIUM/VILANTEROL 62.5-25 MCG ELLIPTA 1 PUFF INHALATION (07:29)
[2024-04-01 07:43] LABS: Glucose Point of Care 280 mg/dl (65-105)
[2024-04-01] MEDS: PANTOPRAZOLE 40 MG TABLET PO (08:40)
[2024-04-01] MEDS: DULoxetine HCL 60 MG CAPSULE.DR PO (08:41)
[2024-04-01] MEDS: FUROSEMIDE INJ 40 MG/4 ML VIAL IV PUSH (08:41)
[2024-04-01] MEDS: PREGABALIN (*CRX) 50 MG CAPSULE PO ×2 (08:41→21:06)
[2024-04-01] MEDS: INSULIN ASPART (*BKC) 100 UNITS/ML SUB-Q ×2 (08:41→12:02)
[2024-04-01] MEDS: CLOPIDOGREL BISULFATE 75 MG TABLET PO (08:41)
[2024-04-01] MEDS: NEOMYCIN/POLYMYXIN/BACITR/HC OINT 15 GM TUBE 1 APPLIC TOPICAL ×2 (08:42→21:06)
[2024-04-01 11:50] LABS: Glucose Point of Care 215 mg/dl (65-105)
--- NOTE | 2024-04-01 12:16 | P.PNIM_ITS ---
Progress Note: A&P Assessment and Plan (1) Abdominal pain: Code(s): R10.9 - Unspecified abdominal pain Status: Acute (2) Acute on chronic combined systolic (congestive) and diastolic (congestive) heart failure: Code(s): I50.43 - Acute on chronic combined systolic (congestive) and diastolic (congestive) heart failure Status: Acute (3) Acute and chronic respiratory failure with hypoxia: Code(s): J96.21 - Acute and chronic respiratory failure with hypoxia Status: Acute Plan Acute on Chronis Respiratory failure with hypoxia-At Baseline RESOLVED * HX of HF 20-25% EF likely secondary to HF * CT ABD showed bilateral pleural effusions * CXR Cardiomegaly with mild interstitial edema. * 2 L nasal cannula wean as tolerated wears 2L at night currently * 40 of IV Lasix daily * Spironolactone * Incentive spirometer ABD Pain/N/V/Liver Mass * CT abdomen and pelvis in the emergency room showed 3.3 cm mass in the left hepatic lobe that was new from March of 2022. * No reports of bloody stool or bloody emesis. Last bowel movement was yesterday. She has a recent history of C diff infection. Repeat C diff testing. * Protonix daily * Liver biopsy was ordered by the emergency room. Eliquis on hold * GI was consulted given presence of a liver mass, recs are appreciated 03/29/2023: * EGD held today GI would like biopsy results first due to patient low EF * AFP pending * liver biopsy pending * PPI/Carafate added by GI 03/30/2024 * Liver biopsy pending * further intervention pending results Acute on chronic combined systolic and diastolic heart failure * BNP 4320 * cardiology consulted * IV Lasix daily * Spironolactone * ICD * monitor renal function during diuresis * Echo from October 18, 2019 for showed severe global systolic dysfunction with an estimated EF of 20-25%. * chest x-ray Pending * CT ABD showed bilateral pleural effusions * Daily weight. * fluid restriction * elevate/Jordon wrap legs if needed * Add Entresto?? 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 -strict I&O -liver biopsy pending -continue to monitor patient Diabetes * Accu-Cheks a.c. HS * sliding scale insulin * hold oral diabetic medications * resume patient's home long-acting * Hemoglobin A1c 8.0 * Diabetic diet * encourage lifestyle modifications and weight loss * Optimize Jordon inhibitors and statins. * Watch for hypoglycemia/hypoglycemic protocol ordered Code status: Full code per patient DVT prophylaxis: Eliquis on hold for procedure/SCD's Stress ulcer prophylaxis: Protonix 40 daily PT/OT notes: PT/OT Pending Disposition: Patient continues admission to the medical unit, monitor pt for hypotension, need for thoracentesis. Continue to wean oxygen. . Time Spent With Patient Time with patient: 25 - 35 minutes Subjective Date/time seen: 04/01/24 12:16 Interval history: Admission: Medical Chart This is a 58-year-old female with a past medical history significant for anxiety, COPD, type 2 diabetes, coronary artery disease s/p 5 vessel CABG, CHF with EF 20-25% (pacemak
--- NOTE | 2024-04-01 12:16 | PM.IMPN ---
Progress Note: A&P Assessment and Plan (1) Abdominal pain: Code(s): R10.9 - Unspecified abdominal pain Status: Acute (2) Acute on chronic combined systolic (congestive) and diastolic (congestive) heart failure: Code(s): I50.43 - Acute on chronic combined systolic (congestive) and diastolic (congestive) heart failure Status: Acute (3) Acute and chronic respiratory failure with hypoxia: Code(s): J96.21 - Acute and chronic respiratory failure with hypoxia Status: Acute Plan Acute on Chronis Respiratory failure with hypoxia-At Baseline RESOLVED HX of HF 20-25% EF likely secondary to HF CT ABD showed bilateral pleural effusions CXR Cardiomegaly with mild interstitial edema. 2 L nasal cannula wean as tolerated wears 2L at night currently 40 of IV Lasix daily Spironolactone Incentive spirometer ABD Pain/N/V/Liver Mass CT abdomen and pelvis in the emergency room showed 3.3 cm mass in the left hepatic lobe that was new from March of 2022. No reports of bloody stool or bloody emesis. Last bowel movement was yesterday. She has a recent history of C diff infection. Repeat C diff testing. Protonix daily Liver biopsy was ordered by the emergency room. Eliquis on hold GI was consulted given presence of a liver mass, recs are appreciated 03/29/2023: EGD held today GI would like biopsy results first due to patient low EF AFP pending liver biopsy pending PPI/Carafate added by GI 03/30/2024 Liver biopsy pending further intervention pending results Acute on chronic combined systolic and diastolic heart failure BNP 4320 cardiology consulted IV Lasix daily Spironolactone ICD monitor renal function during diuresis Echo from October 18, 2019 for showed severe global systolic dysfunction with an estimated EF of 20-25%. chest x-ray Pending CT ABD showed bilateral pleural effusions Daily weight. fluid restriction elevate/Jordon wrap legs if needed Add Entresto?? 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 -strict I&O -liver biopsy pending -continue to monitor patient Diabetes Accu-Cheks a.c. HS sliding scale insulin hold oral diabetic medications resume patient's home long-acting Hemoglobin A1c 8.0 Diabetic diet encourage lifestyle modifications and weight loss Optimize Jordon inhibitors and statins. Watch for hypoglycemia/hypoglycemic protocol ordered Code status: Full code per patient DVT prophylaxis: Eliquis on hold for procedure/SCD's Stress ulcer prophylaxis: Protonix 40 daily PT/OT notes: PT/OT Pending Disposition: Patient continues admission to the medical unit, monitor pt for hypotension, need for thoracentesis. Continue to wean oxygen. . Time Spent With Patient Time with patient: 25 - 35 minutes Subjective Date/time seen: 04/01/24 12:16 Interval history: Admission: Medical Chart This is a 58-year-old female with a past medical history significant for anxiety, COPD, type 2 diabetes, coronary artery disease s/p 5 vessel CABG, CHF with EF 20-25% (pacemaker,defib??)depression, peripheral arterial disease with right BKA, who presented to the emergency room with complaints of abdominal pain. History is somewhat difficult to obtain as the patient is rather lethargic in frequently falls asleep during our conversation. She requires tactile stimulation to keep her awake. She does say that she has had right upper quadrant abdominal pain for the last 4 days. Last night she had 1 episode of nausea with vomiting that she describes as bile. A CT of her abdomen and pelvis was completed and
[2024-04-01 17:21] LABS: Glucose Point of Care 195 mg/dl (65-105)
[2024-04-01] MEDS: HYDROcodone/acetaminophen (*CRX) 7.5-325 MG TABLET 1 TAB PO ×2 (17:35→22:55)
[2024-04-01 21:45] LABS: Glucose Point of Care 246 mg/dl (65-105)
[2024-04-01 23:03] LABS: Glucose Point of Care 239 mg/dl (65-105)
[2024-04-02] MEDS: HYDROmorphone HCL INJ (*CRX) 1 MG/ML SYR IV PUSH ×5 (00:23→20:18)
[2024-04-02 04:37] LABS: Basophils Absolute Auto 0.1 K/mm3 (0.0-0.1); Basophils Percent Auto 0.9 % (0.2-1.2); Eosinophils Absolute Auto 0.2 K/mm3 (0-0.3); Eosinophils Percent Auto 2.4 % (0-4.4); Hematocrit 44.3 % (37.0-47.0); Immature Granulocyte Absolute 0.01 K/mm3 (0.00-0.031); Immature Granulocyte Percent A 0.1 % (0-0.5); Lymphocytes Absolute Auto 1.25 K/mm3 (0.9-3.2); Lymphocytes Percent Auto 17.7 % (18.3-44.2); Mean Corpuscular HGB Conc 29.3 g/dl (32-36); Mean Corpuscular Hemoglobin 22.1 pg (26-34); Mean Corpuscular Volume 75.2 fl (80-100); Mean Platelet Volume 9.9 fl (7.4-10.4); Monocytes Absolute Auto 0.5 K/mm3 (0.1-0.6); Neutrophils Absolute Auto 5.1 K/mm3 (1.3-6.7); Neutrophils Percent Auto 71.9 % (45.5-73.1); Platelet Count Result 212 k/mm3 (150-375); Red Blood Count 5.89 M/mm3 (4.2-5.4); Red Cell Distribution Width 18.7 % (11.5-14.5); White Blood Count 7.1 K/mm3 (4.5-10.0)
[2024-04-02 04:54] LABS: Alanine Aminotransferase 13 U/L (6-35); Albumin Level 4.1 g/dL (3.5-5.1); Alkaline Phosphatase 140 U/L (38-126); Anion Gap 8 mmol/L (4-12); Aspartate Amino Transferase 35 U/L (14-36); Bilirubin,Total 0.8 mg/dL (0.2-1.3); Blood Urea Nitrogen 31 mg/dL (7-17); Calcium 8.9 mg/dL (8.4-10.2); Carbon Dioxide 30 mmol/L (22-30); Chloride 97 mmol/L (98-107); Estimated CRCL calculation 47 ml/min; Estimated Glomerular Filt Rate 46; Glucose 186 mg/dL (65-110); Magnesium 1.9 mg/dL (1.6-2.3); Potassium 4.2 mmol/L (3.4-5.0); Sodium 135 mmol/L (137-145)
[2024-04-02 04:56] LABS: Platelet Estimate Adequate (Adequate)
[2024-04-02 04:57] LABS: Anisocytosis 1+; Crenated RBC 1+; Schistocytes Rare
[2024-04-02 06:00] VITALS: BP 102/57; PULSE 77; RESP 18; TEMP 36.7; O2SAT 99
[2024-04-02] MEDS: LEVOTHYROXINE SODIUM 50 MCG TABLET PO (06:42)
[2024-04-02 08:07] LABS: Glucose Point of Care 160 mg/dl (65-105)
[2024-04-02 08:25] VITALS: O2SAT 97
[2024-04-02] MEDS: UMECLIDINIUM/VILANTEROL 62.5-25 MCG ELLIPTA 1 PUFF INHALATION (08:25)
[2024-04-02 08:57] VITALS: O2SAT 97
[2024-04-02] MEDS: PANTOPRAZOLE 40 MG TABLET PO (08:59)
[2024-04-02] MEDS: CLOPIDOGREL BISULFATE 75 MG TABLET PO (08:59)
[2024-04-02] MEDS: NEOMYCIN/POLYMYXIN/BACITR/HC OINT 15 GM TUBE 1 APPLIC TOPICAL ×2 (08:59→20:16)
[2024-04-02] MEDS: DULoxetine HCL 60 MG CAPSULE.DR PO (08:59)
[2024-04-02] MEDS: PREGABALIN (*CRX) 50 MG CAPSULE PO ×2 (08:59→20:15)
--- NOTE | 2024-04-02 11:32 | P.PNIM_ITS ---
Progress Note: A&P Assessment and Plan (1) Abdominal pain: Code(s): R10.9 - Unspecified abdominal pain Status: Acute (2) Acute on chronic combined systolic (congestive) and diastolic (congestive) heart failure: Code(s): I50.43 - Acute on chronic combined systolic (congestive) and diastolic (congestive) heart failure Status: Acute (3) Acute and chronic respiratory failure with hypoxia: Code(s): J96.21 - Acute and chronic respiratory failure with hypoxia Status: Acute Plan Acute on Chronis Respiratory failure with hypoxia-At Baseline RESOLVED * HX of HF 20-25% EF likely secondary to HF * CT ABD showed bilateral pleural effusions * CXR Cardiomegaly with mild interstitial edema. * 2 L nasal cannula wean as tolerated wears 2L at night currently * 40 of IV Lasix daily * Spironolactone * Incentive spirometer ABD Pain/N/V/Liver Mass * CT abdomen and pelvis in the emergency room showed 3.3 cm mass in the left hepatic lobe that was new from March of 2022. * No reports of bloody stool or bloody emesis. Last bowel movement was yesterday. She has a recent history of C diff infection. Repeat C diff testing. * Protonix daily * Liver biopsy was ordered by the emergency room. Eliquis on hold * GI was consulted given presence of a liver mass, recs are appreciated 03/29/2023: * EGD held today GI would like biopsy results first due to patient low EF * AFP pending * liver biopsy pending * PPI/Carafate added by GI 03/30/2024 * Liver biopsy pending * further intervention pending results Acute on chronic combined systolic and diastolic heart failure * BNP 4320 * cardiology consulted * IV Lasix daily * Spironolactone * ICD * monitor renal function during diuresis * Echo from October 18, 2019 for showed severe global systolic dysfunction with an estimated EF of 20-25%. * chest x-ray Pending * CT ABD showed bilateral pleural effusions * Daily weight. * fluid restriction * elevate/Jordon wrap legs if needed * Add Entresto?? will contact patient clinical geneticist 03/30/2024: * Spoke with patient clinical geneticist on medications * Started Entresto * monitor renal function * was on frusemide 80mg was stopped due to EVAN on last hospitalization 03/31/2024 * did not tolerate Entresto low BP and worsening EVAN discontinued will continue with lasix 04/01/2024: -agree with plan above -patient hypotensive hold furosemide this a.m. -strict I&O -liver biopsy pending -continue to monitor patient 04/02/2024: * No changes vitals stable * Switched to 40mg PO lasix Diabetes * Accu-Cheks a.c. HS * sliding scale insulin * hold oral diabetic medications * resume patient's home long-acting * Hemoglobin A1c 8.0 * Diabetic diet * encourage lifestyle modifications and weight loss * Optimize Jordon inhibitors and statins. * Watch for hypoglycemia/hypoglycemic protocol ordered Code status: Full code per patient DVT prophylaxis: Eliquis on hold for procedure/SCD's Stress ulcer prophylaxis: Protonix 40 daily PT/OT notes: PT/OT Pending Disposition: Patient off oxygen pending liver biopsy report for further treatment plans. . Time Spent With Patient Time with patient: 15 - 25 minutes Subjective Date/time seen: 04/02/24 11:32 Interval history: Admission: Medical Chart This is a 58-year-old female with a past medical history significant for anxiety, COPD, type 2 diabetes, coronary artery disease s/p 5 ves
--- NOTE | 2024-04-02 11:32 | PM.IMPN ---
Progress Note: A&P Assessment and Plan (1) Abdominal pain: Code(s): R10.9 - Unspecified abdominal pain Status: Acute (2) Acute on chronic combined systolic (congestive) and diastolic (congestive) heart failure: Code(s): I50.43 - Acute on chronic combined systolic (congestive) and diastolic (congestive) heart failure Status: Acute (3) Acute and chronic respiratory failure with hypoxia: Code(s): J96.21 - Acute and chronic respiratory failure with hypoxia Status: Acute Plan Acute on Chronis Respiratory failure with hypoxia-At Baseline RESOLVED HX of HF 20-25% EF likely secondary to HF CT ABD showed bilateral pleural effusions CXR Cardiomegaly with mild interstitial edema. 2 L nasal cannula wean as tolerated wears 2L at night currently 40 of IV Lasix daily Spironolactone Incentive spirometer ABD Pain/N/V/Liver Mass CT abdomen and pelvis in the emergency room showed 3.3 cm mass in the left hepatic lobe that was new from March of 2022. No reports of bloody stool or bloody emesis. Last bowel movement was yesterday. She has a recent history of C diff infection. Repeat C diff testing. Protonix daily Liver biopsy was ordered by the emergency room. Eliquis on hold GI was consulted given presence of a liver mass, recs are appreciated 03/29/2023: EGD held today GI would like biopsy results first due to patient low EF AFP pending liver biopsy pending PPI/Carafate added by GI 03/30/2024 Liver biopsy pending further intervention pending results Acute on chronic combined systolic and diastolic heart failure BNP 4320 cardiology consulted IV Lasix daily Spironolactone ICD monitor renal function during diuresis Echo from October 18, 2019 for showed severe global systolic dysfunction with an estimated EF of 20-25%. chest x-ray Pending CT ABD showed bilateral pleural effusions Daily weight. fluid restriction elevate/Jordon wrap legs if needed Add Entresto?? 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 -strict I&O -liver biopsy pending -continue to monitor patient 04/02/2024: No changes vitals stable Switched to 40mg PO lasix Diabetes Accu-Cheks a.c. HS sliding scale insulin hold oral diabetic medications resume patient's home long-acting Hemoglobin A1c 8.0 Diabetic diet encourage lifestyle modifications and weight loss Optimize Jordon inhibitors and statins. Watch for hypoglycemia/hypoglycemic protocol ordered Code status: Full code per patient DVT prophylaxis: Eliquis on hold for procedure/SCD's Stress ulcer prophylaxis: Protonix 40 daily PT/OT notes: PT/OT Pending Disposition: Patient off oxygen pending liver biopsy report for further treatment plans. . Time Spent With Patient Time with patient: 15 - 25 minutes Subjective Date/time seen: 04/02/24 11:32 Interval history: Admission: Medical Chart This is a 58-year-old female with a past medical history significant for anxiety, COPD, type 2 diabetes, coronary artery disease s/p 5 vessel CABG, CHF with EF 20-25% (pacemaker,defib??)depression, peripheral arterial disease with right BKA, who presented to the emergency room with complaints of abdominal pain. History is somewhat difficult to obtain as the patient is rather lethargic in frequently falls asleep during our conversation. She requires tactile stimulation to keep her awake. She does say that she has had right upper quadrant abdominal pain for the last 4 days. Last night she had 1 episode of nausea with vomiting that she describes as bile. A CT of her abdomen and pelvis
[2024-04-02 11:42] LABS: Glucose Point of Care 288 mg/dl (65-105)
[2024-04-02] MEDS: INSULIN ASPART (*BKC) 100 UNITS/ML SUB-Q ×2 (12:27→17:37)
--- NOTE | 2024-04-02 13:57 | WPDGIPROGNO ---
Progress Note: A&P Assessment and Plan (1) Liver mass: Code(s): R16.0 - Hepatomegaly, not elsewhere classified Status: Acute Assessment and Plan: s/p liver biopsy ? malignancy, still pending path report (2) Epigastric abdominal pain: Code(s): R10.13 - Epigastric pain Status: Acute Assessment and Plan: ? from liver mass high risk to undergo anesthesia given severe ischemic cardiomyopathy with EF 20% hold off EGD will follow as needed (3) Decreased appetite: Code(s): R63.0 - Anorexia Status: Acute (4) Ischemic cardiomyopathy: Code(s): I25.5 - Ischemic cardiomyopathy Status: Acute Assessment and Plan: by primary s/p icd on diuretics entresto per cardiology recommendation Subjective Date/time seen: 04/02/24 13:57 Interval history: similar abdominal, no changes Review of Systems Review of Systems: All systems reviewed & are unremarkable except as noted in HPI and below Exam Const: General: comfortable and no acute distress HENMT: Face/Nose/Sinus: Normal nares present Eyes: General: appearance normal, both eyes and all related structures Neck: Neck: supple Resp: Auscultation: clear to auscultation bilaterally Cardio: Rate: regular rate Rhythm: regular rhythm GI: Inspection: non-distended GI Palp: Yes Soft to palpation and Yes Tenderness to palpation present (GI) (in epigastric and ruq) Auscultation: normal bowel sounds Skin: General skin exam: normal color Neuro: Speech: normal speech Extrem: General: normal to inspection Psych: Affect: Anxious affect present Objective Data Vital Signs Vital Signs: Vital Signs - 24 hr 04/01/24 14:57 04/01/24 17:35 04/01/24 22:00 Temperature 97.7 F Pulse Rate 84 Respiratory Rate 18 Blood Pressure 109/67 132/66 Pulse Oximetry 95 94 Oxygen Delivery Room Air 04/01/24 20:00 04/02/24 06:00 04/02/24 08:25 Temperature 98.0 F Pulse Rate 77 Respiratory Rate 18 Blood Pressure 102/57 L Pulse Oximetry 99 97 Oxygen Delivery Room Air Room Air 04/02/24 08:57 Temperature Pulse Rate Respiratory Rate Blood Pressure Pulse Oximetry 97 Oxygen Delivery Room Air Intake/Output Intake/Output: Intake & Output 03/30/24 03/31/24 04/01/24 04/02/24 23:59 23:59 23:59 23:59 Intake Total 930 320 240 0 Output Total 0508 757 3903 1200 Balance -270 -280 -830 -1200 Meds/Results Medications: Active Medications Generic Name Dose Route Start Last Admin Trade Name Freq PRN Reason Stop Dose Admin Hydrocodone Bitart/Acetaminophen 1 tab 03/31/24 12:49 04/01/24 22:55 Hydrocodone/Acetaminophen (*Crx) 7.5-325 Mg Tablet PO 1 tab Q4H PRN Administration Pain Rated 6 or Greater Alprazolam 0.5 mg 03/28/24 15:17 03/28/24 19:54 Alprazolam (*Crx) 0.5 Mg Tablet PO 0.5 mg BID PRN Administration Anxiety Apixaban 5 mg 03/28/24 21:00 Apixaban 5 Mg Tablet PO Q12HR LIBBY Clopidogrel Bisulfate 75 mg 03/29/24 09:00 04/02/24 08:59 Clopidogrel Bisulfate 75 Mg Tablet PO 75 mg QAM LIBBY Administration Dextrose 12.5 gm 03/28/24 10:35 Dextrose 50% 25 Gm/50 Ml Syringe IV PUSH PRN PRN Hypoglycemia Protocol Duloxetine HCl 60 mg 03/29/24 09:00 04/02/24 08:59 Duloxetine Hcl 60 Mg Capsule.Dr PO 60 mg DAILY LIBBY Administration Furosemide 40 mg 04/03/24 09:00 Furosemide 40 Mg Tablet PO DAILY LIBBY Glucagon 1 mg 03/28/24 10:35 Glucagon For Inj 1 Mg Vial IM PRN PRN Hypoglycemia Protocol Glucose 15 gm 03/28/24 10:35 Glucose Oral Gel 15 Gm Of Glucse In 37.5 Gm Tube PO PRN PRN Hypoglycemia Protocol Hydromorphone HCl 1 mg 03/30/24 13:44 04/02/24 12:33 Hydromorphone Hcl Inj (*Crx) 1 Mg/Ml Syr IV PUSH 1 mg Q3H PRN Administration Pain Rated 7-10 Hydroxyzine HCl 25 mg 03/30/24 13:43 Hydroxyzine Hcl 25 Mg Tablet PO Q6H PRN Itching
[2024-04-02 14:00] VITALS: BP 112/65; PULSE 80; RESP 16; TEMP 36.1; O2SAT 98
[2024-04-02] MEDS: HYDROcodone/acetaminophen (*CRX) 7.5-325 MG TABLET 1 TAB PO (14:58)
[2024-04-02 16:39] LABS: Glucose Point of Care 227 mg/dl (65-105)
[2024-04-02 21:31] LABS: Glucose Point of Care 186 mg/dl (65-105)
[2024-04-02 22:00] VITALS: BP 103/63; PULSE 78; RESP 18; TEMP 36.4; O2SAT 97
[2024-04-03] MEDS: HYDROmorphone HCL INJ (*CRX) 1 MG/ML SYR IV PUSH ×3 (02:16→11:25)
[2024-04-03] MEDS: HYDROcodone/acetaminophen (*CRX) 7.5-325 MG TABLET 1 TAB PO (04:47)
[2024-04-03 05:40] LABS: Basophils Absolute Auto 0.1 K/mm3 (0.0-0.1); Basophils Percent Auto 0.9 % (0.2-1.2); Eosinophils Absolute Auto 0.2 K/mm3 (0-0.3); Eosinophils Percent Auto 2.9 % (0-4.4); Hemoglobin 13.1 g/dL (12.0-15.0); Immature Granulocyte Absolute 0.01 K/mm3 (0.00-0.031); Immature Granulocyte Percent A 0.2 % (0-0.5); Lymphocytes Absolute Auto 0.96 K/mm3 (0.9-3.2); Lymphocytes Percent Auto 14.8 % (18.3-44.2); Mean Corpuscular HGB Conc 29.1 g/dl (32-36); Mean Corpuscular Hemoglobin 22.1 pg (26-34); Mean Corpuscular Volume 75.8 fl (80-100); Mean Platelet Volume 11.1 fl (7.4-10.4); Monocytes Absolute Auto 0.5 K/mm3 (0.1-0.6); Monocytes Percent Auto 7.1 % (2.6-8.5); Neutrophils Absolute Auto 4.8 K/mm3 (1.3-6.7); Neutrophils Percent Auto 74.1 % (45.5-73.1); Platelet Count Result 200 k/mm3 (150-375); Red Blood Count 5.94 M/mm3 (4.2-5.4); Red Cell Distribution Width 18.6 % (11.5-14.5); White Blood Count 6.5 K/mm3 (4.5-10.0)
[2024-04-03 05:50] LABS: Alanine Aminotransferase 12 U/L (6-35); Alkaline Phosphatase 130 U/L (38-126); Anion Gap 8 mmol/L (4-12); Aspartate Amino Transferase 27 U/L (14-36); Bilirubin,Total 0.5 mg/dL (0.2-1.3); Blood Urea Nitrogen 28 mg/dL (7-17); Calcium 8.9 mg/dL (8.4-10.2); Carbon Dioxide 31 mmol/L (22-30); Chloride 97 mmol/L (98-107); Estimated CRCL calculation 42 ml/min; Estimated Glomerular Filt Rate 46; Glucose 242 mg/dL (65-110); Magnesium 1.9 mg/dL (1.6-2.3); Potassium 4.8 mmol/L (3.4-5.0); Sodium 136 mmol/L (137-145)
[2024-04-03 05:55] LABS: Platelet Estimate Adequate (Adequate)
[2024-04-03 05:56] LABS: Anisocytosis 1+; Schistocytes None Seen
[2024-04-03 06:00] VITALS: BP 112/58; PULSE 73; RESP 18; TEMP 36.9; O2SAT 97
[2024-04-03] MEDS: LEVOTHYROXINE SODIUM 50 MCG TABLET PO (06:01)
[2024-04-03 07:58] LABS: Glucose Point of Care 268 mg/dl (65-105)
[2024-04-03 08:05] VITALS: O2SAT 96
[2024-04-03] MEDS: DULoxetine HCL 60 MG CAPSULE.DR PO (08:37)
[2024-04-03] MEDS: FUROSEMIDE 40 MG TABLET PO (08:37)
[2024-04-03] MEDS: CLOPIDOGREL BISULFATE 75 MG TABLET PO (08:37)
[2024-04-03] MEDS: PANTOPRAZOLE 40 MG TABLET PO (08:37)
[2024-04-03] MEDS: PREGABALIN (*CRX) 50 MG CAPSULE PO ×2 (08:38→21:13)
[2024-04-03] MEDS: NEOMYCIN/POLYMYXIN/BACITR/HC OINT 15 GM TUBE 1 APPLIC TOPICAL ×2 (08:38→21:13)
[2024-04-03] MEDS: INSULIN ASPART (*BKC) 100 UNITS/ML SUB-Q ×2 (08:38→17:07)
[2024-04-03 10:35] LABS: Glucose Point of Care 181 mg/dl (65-105)
--- NOTE | 2024-04-03 11:47 | PCPTNOTE ---
Attempted to see aptient for PT, however patient just got back from MRI and asked in PT can come back later.
[2024-04-03 11:49] LABS: Glucose Point of Care 140 mg/dl (65-105)
--- NOTE | 2024-04-03 12:22 | P.PNIM_ITS ---
Progress Note: A&P Assessment and Plan (1) Abdominal pain: Code(s): R10.9 - Unspecified abdominal pain Status: Acute (2) Acute on chronic combined systolic (congestive) and diastolic (congestive) heart failure: Code(s): I50.43 - Acute on chronic combined systolic (congestive) and diastolic (congestive) heart failure Status: Acute (3) Acute and chronic respiratory failure with hypoxia: Code(s): J96.21 - Acute and chronic respiratory failure with hypoxia Status: Acute Plan Acute on Chronis Respiratory failure with hypoxia-At Baseline RESOLVED * HX of HF 20-25% EF likely secondary to HF * CT ABD showed bilateral pleural effusions * CXR Cardiomegaly with mild interstitial edema. * 2 L nasal cannula wean as tolerated wears 2L at night currently * 40 of IV Lasix daily * Spironolactone * Incentive spirometer ABD Pain/N/V/Liver Mass * CT abdomen and pelvis in the emergency room showed 3.3 cm mass in the left hepatic lobe that was new from March of 2022. * No reports of bloody stool or bloody emesis. Last bowel movement was yesterday. She has a recent history of C diff infection. Repeat C diff testing. * Protonix daily * Liver biopsy was ordered by the emergency room. Eliquis on hold * GI was consulted given presence of a liver mass, recs are appreciated 03/29/2023: * EGD held today GI would like biopsy results first due to patient low EF * AFP pending * liver biopsy pending * PPI/Carafate added by GI 03/30/2024 * Liver biopsy pending * further intervention pending results 04/03/2024 * Prelim showing neoplasm * Sent for further testing could take up to 1 week for final * Did follow-up CT chest which showed: 1.9 cm nodule in right lung upper lobe, worsened from 10/15/2023, consistent with primary bronchogenic carcinoma likely primary Mild right hilar and mediastinal lymphadenopathy, which may be reactive or metastatic disease * Oncology consulted Acute on chronic combined systolic and diastolic heart failure-STABLE * BNP 4320 * cardiology consulted * IV Lasix daily * Spironolactone * ICD * monitor renal function during diuresis * Echo from October 18, 2019 for showed severe global systolic dysfunction with an estimated EF of 20-25%. * chest x-ray Pending * CT ABD showed bilateral pleural effusions * Daily weight. * fluid restriction * elevate/Jordon wrap legs if needed * Add Entresto?? will contact patient manager education 03/30/2024: * Spoke with patient manager education on medications * Started Entresto * monitor renal function * was on frusemide 80mg was stopped due to EVAN on last hospitalization 03/31/2024 * did not tolerate Entresto low BP and worsening EVAN discontinued will continue with lasix 04/01/2024: -agree with plan above -patient hypotensive hold furosemide this a.m. -strict I&O -liver biopsy pending -continue to monitor patient 04/02/2024: * No changes vitals stable * Switched to 40mg PO lasix 04/03/2024 * Stable Diabetes * Accu-Cheks a.c. HS * sliding scale insulin * hold oral diabetic medications * resume patient's home long-acting * Hemoglobin A1c 8.0 * Diabetic diet * encourage lifestyle modifications and weight loss * Optimize Jordon inhibitors and statins. * Watch for hypoglycemia/hypoglycemic protocol ordered Code status: Full code per patient DVT prophylaxis: Eliquis on hold for procedure/SCD's Stress ulcer prophylaxis: Protonix 40 daily PT/OT notes: PT/OT Pending Dis
--- NOTE | 2024-04-03 12:22 | PM.IMPN ---
Progress Note: A&P Assessment and Plan (1) Abdominal pain: Code(s): R10.9 - Unspecified abdominal pain Status: Acute (2) Acute on chronic combined systolic (congestive) and diastolic (congestive) heart failure: Code(s): I50.43 - Acute on chronic combined systolic (congestive) and diastolic (congestive) heart failure Status: Acute (3) Acute and chronic respiratory failure with hypoxia: Code(s): J96.21 - Acute and chronic respiratory failure with hypoxia Status: Acute Plan Acute on Chronis Respiratory failure with hypoxia-At Baseline RESOLVED HX of HF 20-25% EF likely secondary to HF CT ABD showed bilateral pleural effusions CXR Cardiomegaly with mild interstitial edema. 2 L nasal cannula wean as tolerated wears 2L at night currently 40 of IV Lasix daily Spironolactone Incentive spirometer ABD Pain/N/V/Liver Mass CT abdomen and pelvis in the emergency room showed 3.3 cm mass in the left hepatic lobe that was new from March of 2022. No reports of bloody stool or bloody emesis. Last bowel movement was yesterday. She has a recent history of C diff infection. Repeat C diff testing. Protonix daily Liver biopsy was ordered by the emergency room. Eliquis on hold GI was consulted given presence of a liver mass, recs are appreciated 03/29/2023: EGD held today GI would like biopsy results first due to patient low EF AFP pending liver biopsy pending PPI/Carafate added by GI 03/30/2024 Liver biopsy pending further intervention pending results 04/03/2024 Prelim showing neoplasm Sent for further testing could take up to 1 week for final Did follow-up CT chest which showed: 1.9 cm nodule in right lung upper lobe, worsened from 10/15/2023, consistent with primary bronchogenic carcinoma likely primary Mild right hilar and mediastinal lymphadenopathy, which may be reactive or metastatic disease Oncology consulted Acute on chronic combined systolic and diastolic heart failure-STABLE BNP 4320 cardiology consulted IV Lasix daily Spironolactone ICD monitor renal function during diuresis Echo from October 18, 2019 for showed severe global systolic dysfunction with an estimated EF of 20-25%. chest x-ray Pending CT ABD showed bilateral pleural effusions Daily weight. fluid restriction elevate/Jordon wrap legs if needed Add Entresto?? will contact patient press brake operator 03/30/2024: Spoke with patient press brake operator on medications Started Entresto monitor renal function was on frusemide 80mg was stopped due to EVAN on last hospitalization 03/31/2024 did not tolerate Entresto low BP and worsening EVAN discontinued will continue with lasix 04/01/2024: -agree with plan above -patient hypotensive hold furosemide this a.m. -strict I&O -liver biopsy pending -continue to monitor patient 04/02/2024: No changes vitals stable Switched to 40mg PO lasix 04/03/2024 Stable Diabetes Accu-Cheks a.c. HS sliding scale insulin hold oral diabetic medications resume patient's home long-acting Hemoglobin A1c 8.0 Diabetic diet encourage lifestyle modifications and weight loss Optimize Jordon inhibitors and statins. Watch for hypoglycemia/hypoglycemic protocol ordered Code status: Full code per patient DVT prophylaxis: Eliquis on hold for procedure/SCD's Stress ulcer prophylaxis: Protonix 40 daily PT/OT notes: PT/OT Pending Disposition: Patient off oxygen Prelim for biopsy neoplasm, follow up CT 1.9 CM RT upper lobe nodule carcinoma likely primary with metastasis to liver. Oncology consulted to discuss treatment options. . Time Spent With Patient Time with patient: 15 - 25 minutes Subjective Date/time seen: 04/03/24 12:22 Interval history: Admission: Medical Chart This is a 58-year-old female with a past medical history significant for anxiety, COPD, type 2 diabetes, coronary artery disease s/p 5 vessel CABG, CHF with EF 20-25% (aryan
[2024-04-03 14:10] VITALS: BP 124/54; PULSE 86; RESP 16; TEMP 37.1; O2SAT 96
[2024-04-03 17:02] LABS: Glucose Point of Care 240 mg/dl (65-105)
--- NOTE | 2024-04-03 17:46 | PDONCCN ---
HPI - Date of Consult Date/Time: 04/03/24 17:46 Requesting Physician: Leora Lai APRN Primary Care Provider: Zay Martinez MD - Consult Narrative Reason for consult: Likely metastatic lung cancer Narrative: Tiff Vaughn is a 58 year old female with history of COPD type 2 diabetes, coronary artery disease status post bypass grafting, congestive heart failure, peripheral vascular disease status post right-sided BKA and smoking quit in 2006 came into the hospital with abdominal pain involving the right upper quadrant along with 1 episode of nausea and vomiting. Patient has COPD and also on 2 L of oxygen at nighttime.. She denies any hemoptysis. Denies any bone pain. Nose headaches and seizures. CT scan abdomen and pelvis was performed that showed 3.3 cm left hepatic lobe mass. CT chest showed 1.9 cm right upper lobe lung nodule consistent with primary bronchogenic carcinoma with hilar and mediastinal lymphadenopathy along with liver mass with small right and moderate left-sided pleural effusion. She is not sure about the weight as she is not able to measure herself at home but has been eating fairly well. No other new complaints. Review of Systems - Review of Systems All systems reviewed & are unremarkable except as noted in HPI and [facility] Medical History: Medical History (Last Reviewed 03/28/24 @ 10:14 by Theresa Murrieta APRN) Anxiety Charcot's joint of foot in type 2 diabetes mellitus Of the right foot Chronic obstructive pulmonary disease wears 2 L NC at night only Coronary artery disease Left anterior descending stent 01/2019. Usual bee rancher is Dr. 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 Peripheral vascular disease due to secondary diabetes Presence of combination internal cardiac defibrillator (ICD) and pacemaker Serotonin syndrome Suspected sleep apnea AHI 35 on apnea link on 06/16/2022. UTI (urinary tract infection) Surgical History: Surgical History (Last Reviewed 03/28/24 @ 10:14 by Theresa Murrieta APRN) History of appendectomy History of section x3 History of hysterectomy Partial, ovaries retained. Due to cervical changes. History of tonsillectomy and adenoidectomy History of vertebroplasty Hx of BKA Right 11/19/20 at [facility] S/P CABG x 5 w/MVR and left atrial appendage ligation Status post cholecystectomy Stented coronary artery X1 Family History: Family History (Last Reviewed 03/28/24 @ 10:38 by Chelsea Soria RN) Sibling Diabetes mellitus Mother Heart failure Cardiomegaly Arthritis Atrial fibrillation Family history of osteoporosis Family history of Alzheimer's disease Hypertension Cardiomyopathy Acute myocardial infarction History of heart artery stent Congestive heart failure Daughter Anxiety Father Esophagus cancer Cancer of spinal column - Social History Social History: Social History (Last Reviewed 03/28/24 @ 10:15 by Theresa Murrieta APRN) Gender Identity: Gender identity (if verbalized by the patient): Female Alcohol Use: Alcohol intake: former Substance Use: Substance use: current Substance use type: marijuana Other substance usage details: One edible 2 per week Last use: 03/22/24 Others: Spiritual care concerns: No Living Arrangements: Living arrangements: alone Smoking Status: Smoking status: Former smoker Smoking Pack-years: Smoking packs per day: 1.5 Smoking cigarettes per day: 30.0 Years smoked: 20 Smoking pack-years: 30.00 Comments:
[2024-04-03 19:42] VITALS: BP 113/49; PULSE 77; RESP 18; TEMP 36.4; O2SAT 97
[2024-04-03 20:27] LABS: Glucose Point of Care 282 mg/dl (65-105)
[2024-04-03 21:08] VITALS: O2SAT 97
[2024-04-04 05:01] VITALS: BP 114/70; PULSE 76; RESP 17; TEMP 36.8; O2SAT 100
[2024-04-04 05:12] LABS: Basophils Percent Auto 0.7 % (0.2-1.2); Eosinophils Absolute Auto 0.1 K/mm3 (0-0.3); Eosinophils Percent Auto 2.2 % (0-4.4); Hematocrit 42.3 % (37.0-47.0); Hemoglobin 12.5 g/dL (12.0-15.0); Immature Granulocyte Absolute 0.02 K/mm3 (0.00-0.031); Immature Granulocyte Percent A 0.3 % (0-0.5); Lymphocytes Absolute Auto 1.17 K/mm3 (0.9-3.2); Lymphocytes Percent Auto 19.9 % (18.3-44.2); Mean Corpuscular HGB Conc 29.6 g/dl (32-36); Mean Corpuscular Volume 74.6 fl (80-100); Mean Platelet Volume 10.4 fl (7.4-10.4); Monocytes Absolute Auto 0.5 K/mm3 (0.1-0.6); Monocytes Percent Auto 7.8 % (2.6-8.5); Neutrophils Absolute Auto 4.1 K/mm3 (1.3-6.7); Neutrophils Percent Auto 69.1 % (45.5-73.1); Platelet Count Result 201 k/mm3 (150-375); Red Blood Count 5.67 M/mm3 (4.2-5.4); Red Cell Distribution Width 18.6 % (11.5-14.5); White Blood Count 5.9 K/mm3 (4.5-10.0)
[2024-04-04 05:29] LABS: Alanine Aminotransferase 11 U/L (6-35); Albumin Level 3.8 g/dL (3.5-5.1); Alkaline Phosphatase 113 U/L (38-126); Anion Gap 8 mmol/L (4-12); Aspartate Amino Transferase 25 U/L (14-36); Bilirubin,Total 0.5 mg/dL (0.2-1.3); Blood Urea Nitrogen 23 mg/dL (7-17); Calcium 8.8 mg/dL (8.4-10.2); Carbon Dioxide 33 mmol/L (22-30); Chloride 96 mmol/L (98-107); Estimated CRCL calculation 42 ml/min; Estimated Glomerular Filt Rate 46; Glucose 212 mg/dL (65-110); Magnesium 1.9 mg/dL (1.6-2.3); Potassium 4.8 mmol/L (3.4-5.0); Sodium 137 mmol/L (137-145)
[2024-04-04 05:34] LABS: Hypochromasia 2+; Microcytosis 1+ (NORMAL); Ovalocytes 1+; Platelet Estimate Adequate (Adequate)
[2024-04-04 05:35] LABS: Large Platelets Present; Schistocytes None Seen
[2024-04-04 07:45] LABS: Glucose Point of Care 203 mg/dl (65-105)
[2024-04-04 08:00] VITALS: O2SAT 96
[2024-04-04 08:18] VITALS: PULSE 83; RESP 20; O2SAT 96
--- NOTE | 2024-04-04 08:25 | P.PNIM_ITS ---
Progress Note: A&P Assessment and Plan (1) Abdominal pain: Code(s): R10.9 - Unspecified abdominal pain Status: Acute (2) Acute on chronic combined systolic (congestive) and diastolic (congestive) heart failure: Code(s): I50.43 - Acute on chronic combined systolic (congestive) and diastolic (congestive) heart failure Status: Acute (3) Acute and chronic respiratory failure with hypoxia: Code(s): J96.21 - Acute and chronic respiratory failure with hypoxia Status: Acute Plan Acute on Chronis Respiratory failure with hypoxia-At Baseline RESOLVED * HX of HF 20-25% EF likely secondary to HF * CT ABD showed bilateral pleural effusions * CXR Cardiomegaly with mild interstitial edema. * 2 L nasal cannula wean as tolerated wears 2L at night currently * 40 of IV Lasix daily * Spironolactone * Incentive spirometer ABD Pain/N/V/Liver Mass * CT abdomen and pelvis in the emergency room showed 3.3 cm mass in the left hepatic lobe that was new from March of 2022. * No reports of bloody stool or bloody emesis. Last bowel movement was yesterday. She has a recent history of C diff infection. Repeat C diff testing. * Protonix daily * Liver biopsy was ordered by the emergency room. Eliquis on hold * GI was consulted given presence of a liver mass, recs are appreciated 03/29/2023: * EGD held today GI would like biopsy results first due to patient low EF * AFP pending * liver biopsy pending * PPI/Carafate added by GI 03/30/2024 * Liver biopsy pending * further intervention pending results 04/03/2024 * Prelim showing neoplasm * Sent for further testing could take up to 1 week for final * Did follow-up CT chest which showed: 1.9 cm nodule in right lung upper lobe, worsened from 10/15/2023, consistent with primary bronchogenic carcinoma likely primary Mild right hilar and mediastinal lymphadenopathy, which may be reactive or metastatic disease * Oncology consulted Notes reviewed: Likely metastatic lung cancer status post liver biopsy. Patient is the 58-year-old female with multiple comorbidities including peripheral vascular disease status post right-sided BKA, diabetes, congestive heart failure, COPD and history of smoking quit in 2006. She came into the hospital with right upper quadrant abdominal pain with some shortness of breath and tiredness and fatigue. CT chest showed 1.9 cm right upper lobe lung nodule with right hilar and mediastinal lymphadenopathy. There was a small right and moderate left-sided pleural effusion and liver mass. CT abdomen and pelvis showed 3.3 cm left hepatic lobe mass. Patient underwent liver biopsy and pathology is pending. I have discussed the likelihood of metastatic non-small cell lung cancer and treatment for stage IV disease. I have provided her my office information for follow-up . - I spoke with ehr about her wishes for plan of care and she wants to wait for an official biopsy results- she realizes that it might be a bit before we get results back. Acute on chronic combined systolic and diastolic heart failure-STABLE * BNP 4320 * cardiology consulted * IV Lasix daily * Spironolactone * ICD * monitor renal function during diuresis * Echo from October 18, 2019 for showed severe global systolic dysfunction with an estimated EF of 20-25%. * chest x-ray Pending * CT ABD showed bilateral pleural effusions * Daily weight. * fluid restriction * elevate/Jordon wrap legs if needed * Add Entresto?? 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
--- NOTE | 2024-04-04 08:25 | PM.IMPN ---
Progress Note: A&P Assessment and Plan (1) Abdominal pain: Code(s): R10.9 - Unspecified abdominal pain Status: Acute (2) Acute on chronic combined systolic (congestive) and diastolic (congestive) heart failure: Code(s): I50.43 - Acute on chronic combined systolic (congestive) and diastolic (congestive) heart failure Status: Acute (3) Acute and chronic respiratory failure with hypoxia: Code(s): J96.21 - Acute and chronic respiratory failure with hypoxia Status: Acute Plan Acute on Chronis Respiratory failure with hypoxia-At Baseline RESOLVED HX of HF 20-25% EF likely secondary to HF CT ABD showed bilateral pleural effusions CXR Cardiomegaly with mild interstitial edema. 2 L nasal cannula wean as tolerated wears 2L at night currently 40 of IV Lasix daily Spironolactone Incentive spirometer ABD Pain/N/V/Liver Mass CT abdomen and pelvis in the emergency room showed 3.3 cm mass in the left hepatic lobe that was new from March of 2022. No reports of bloody stool or bloody emesis. Last bowel movement was yesterday. She has a recent history of C diff infection. Repeat C diff testing. Protonix daily Liver biopsy was ordered by the emergency room. Eliquis on hold GI was consulted given presence of a liver mass, recs are appreciated 03/29/2023: EGD held today GI would like biopsy results first due to patient low EF AFP pending liver biopsy pending PPI/Carafate added by GI 03/30/2024 Liver biopsy pending further intervention pending results 04/03/2024 Prelim showing neoplasm Sent for further testing could take up to 1 week for final Did follow-up CT chest which showed: 1.9 cm nodule in right lung upper lobe, worsened from 10/15/2023, consistent with primary bronchogenic carcinoma likely primary Mild right hilar and mediastinal lymphadenopathy, which may be reactive or metastatic disease Oncology consulted Notes reviewed: Likely metastatic lung cancer status post liver biopsy. Patient is the 58-year-old female with multiple comorbidities including peripheral vascular disease status post right-sided BKA, diabetes, congestive heart failure, COPD and history of smoking quit in 2006. She came into the hospital with right upper quadrant abdominal pain with some shortness of breath and tiredness and fatigue. CT chest showed 1.9 cm right upper lobe lung nodule with right hilar and mediastinal lymphadenopathy. There was a small right and moderate left-sided pleural effusion and liver mass. CT abdomen and pelvis showed 3.3 cm left hepatic lobe mass. Patient underwent liver biopsy and pathology is pending. I have discussed the likelihood of metastatic non-small cell lung cancer and treatment for stage IV disease. I have provided her my office information for follow-up . - I spoke with ehr about her wishes for plan of care and she wants to wait for an official biopsy results- she realizes that it might be a bit before we get results back. Acute on chronic combined systolic and diastolic heart failure-STABLE BNP 4320 cardiology consulted IV Lasix daily Spironolactone ICD monitor renal function during diuresis Echo from October 18, 2019 for showed severe global systolic dysfunction with an estimated EF of 20-25%. chest x-ray Pending CT ABD showed bilateral pleural effusions Daily weight. fluid restriction elevate/Jordon wrap legs if needed Add Entresto?? will contact patient pocket closer 03/30/2024: Spoke with patient pocket closer on medications Started Entresto monitor renal function was on frusemide 80mg was stopped due to EVAN on last hospitalization 03/31/2024 did not tolerate Entresto low BP and worsening EVAN discontinued will continue with lasix 04/01/2024: -agree with plan above -patient hypotensive hold furosemide this a.m. -strict I&O -liver biopsy pending -continue to monitor patient 04/02/2024: No changes vitals stable Switched to 40mg PO lasix 04/03/20
--- NOTE | 2024-04-04 09:27 | PC.NURSE ---
Pt is in room moaning and crying saying she is in pain. Offered pain medication and pt refused. Tried to get pt to take other medications and she is refusing those as well. Pt is not holding a conversation either, tried to ask orientation questions and pt was not able to answer them at this time. Called provider to inform them of pt's condition.
[2024-04-04] MEDS: HYDROmorphone HCL INJ (*CRX) 1 MG/ML SYR IV PUSH ×4 (09:36→22:56)
[2024-04-04 11:44] LABS: Glucose Point of Care 179 mg/dl (65-105)
[2024-04-04 14:00] VITALS: BP 101/44; PULSE 79; RESP 16; TEMP 36.3; O2SAT 96
[2024-04-04 16:49] LABS: Glucose Point of Care 245 mg/dl (65-105)
[2024-04-04] MEDS: INSULIN ASPART (*BKC) 100 UNITS/ML SUB-Q (17:17)
[2024-04-04 19:42] VITALS: BP 103/50; PULSE 77; RESP 17; TEMP 36.7; O2SAT 100
[2024-04-04 20:05] VITALS: O2SAT 100
[2024-04-04] MEDS: NEOMYCIN/POLYMYXIN/BACITR/HC OINT 15 GM TUBE 1 APPLIC TOPICAL (20:05)
[2024-04-04] MEDS: PREGABALIN (*CRX) 50 MG CAPSULE PO (20:05)
[2024-04-04 20:13] LABS: Glucose Point of Care 315 mg/dl (65-105)
[2024-04-04 20:13] LABS: Glucose Point of Care 282 mg/dl (65-105)
[2024-04-04] MEDS: HYDROcodone/acetaminophen (*CRX) 7.5-325 MG TABLET 1 TAB PO (21:00)
[2024-04-04] MEDS: hydrOXYzine HCL 25 MG TABLET PO (22:43)
--- NOTE | 2024-04-05 00:59 | PC.NURSE ---
Patient's blood sugar was 282 at the HS check. She refused any insulin despite this nurse providing education about elevated blood sugars over a prolonged period. Patient is A&O x 3 and no signs of distress. This nurse will continue to monitor the rest of the shift.
[2024-04-05] MEDS: HYDROmorphone HCL INJ (*CRX) 1 MG/ML SYR IV PUSH ×4 (02:27→20:39)
[2024-04-05] MEDS: ALPRAZolam (*CRX) 0.5 MG TABLET PO ×2 (02:44→20:29)
[2024-04-05 04:57] LABS: Basophils Absolute Auto 0.1 K/mm3 (0.0-0.1); Basophils Percent Auto 0.8 % (0.2-1.2); Eosinophils Absolute Auto 0.2 K/mm3 (0-0.3); Hematocrit 43.3 % (37.0-47.0); Hemoglobin 12.9 g/dL (12.0-15.0); Immature Granulocyte Absolute 0.02 K/mm3 (0.00-0.031); Immature Granulocyte Percent A 0.3 % (0-0.5); Lymphocytes Absolute Auto 1.51 K/mm3 (0.9-3.2); Mean Corpuscular HGB Conc 29.8 g/dl (32-36); Mean Corpuscular Hemoglobin 22.1 pg (26-34); Mean Corpuscular Volume 74.1 fl (80-100); Mean Platelet Volume 10.2 fl (7.4-10.4); Monocytes Absolute Auto 0.5 K/mm3 (0.1-0.6); Monocytes Percent Auto 7.8 % (2.6-8.5); Neutrophils Percent Auto 64.1 % (45.5-73.1); Platelet Count Result 203 k/mm3 (150-375); Red Blood Count 5.84 M/mm3 (4.2-5.4); Red Cell Distribution Width 18.4 % (11.5-14.5); White Blood Count 6.3 K/mm3 (4.5-10.0)
[2024-04-05 05:01] VITALS: BP 126/78; PULSE 81; RESP 18; TEMP 36.3; O2SAT 99
[2024-04-05 05:11] LABS: Alanine Aminotransferase 12 U/L (6-35); Albumin Level 4.1 g/dL (3.5-5.1); Alkaline Phosphatase 118 U/L (38-126); Anion Gap 9 mmol/L (4-12); Aspartate Amino Transferase 28 U/L (14-36); Bilirubin,Total 0.6 mg/dL (0.2-1.3); Blood Urea Nitrogen 21 mg/dL (7-17); Carbon Dioxide 29 mmol/L (22-30); Chloride 96 mmol/L (98-107); Estimated CRCL calculation 45 ml/min; Estimated Glomerular Filt Rate 51; Glucose 217 mg/dL (65-110); Magnesium 1.8 mg/dL (1.6-2.3); Sodium 134 mmol/L (137-145)
[2024-04-05 05:15] LABS: Ovalocytes 1+; Platelet Estimate Adequate (Adequate); Schistocytes None Seen
[2024-04-05] MEDS: LEVOTHYROXINE SODIUM 50 MCG TABLET PO (06:07)
[2024-04-05] MEDS: UMECLIDINIUM/VILANTEROL 62.5-25 MCG ELLIPTA 1 PUFF INHALATION (06:58)
[2024-04-05 07:00] VITALS: PULSE 81; RESP 18; O2SAT 97
[2024-04-05 07:33] LABS: Glucose Point of Care 192 mg/dl (65-105)
[2024-04-05] MEDS: DULoxetine HCL 60 MG CAPSULE.DR PO (08:48)
[2024-04-05] MEDS: CLOPIDOGREL BISULFATE 75 MG TABLET PO (08:48)
[2024-04-05] MEDS: PANTOPRAZOLE 40 MG TABLET PO (08:48)
[2024-04-05] MEDS: PREGABALIN (*CRX) 50 MG CAPSULE PO (08:49)
[2024-04-05] MEDS: NEOMYCIN/POLYMYXIN/BACITR/HC OINT 15 GM TUBE 1 APPLIC TOPICAL ×2 (08:49→20:28)
--- NOTE | 2024-04-05 09:48 | PCNFU ---
Nutrition Follow-Up Complete: Unintentional weight loss related to chronic disease as evidenced by -32 lb weight loss. -17%/4 months goal: Diet advancement Optimize PO intake when diet is advanced Patient is meeting goal. No new goal. Pt current nutrition is DBCC. Last recorded weight is 75.5 kg, up from 72.7 kg on admit. Bowel Motility: Last BM reported 03/29-nursing is aware. Labs Reviewed: NA 134, GFR 51, Glu 217 Meds Noted: Dilaudid, Protonix, NovoLog,Protonix Skin: WNL Additional Notes: Patient remains on a DBCC diet. Oral Intake has been good, 50-100% of meals. Spoke with nursing today regarding No BM documented since 03/29. Agree with diet orders. Monitor diet orders, weights, labs, intakes, plan of care Follow up in 7 days
--- NOTE | 2024-04-05 10:59 | PM.IMPN ---
Subjective Date/time seen: 04/05/24 10:59 Interval history: Admission: Medical Chart This is a 58-year-old female with a past medical history significant for anxiety, COPD, type 2 diabetes, coronary artery disease s/p 5 vessel CABG, CHF with EF 20-25% (pacemaker,defib??)depression, peripheral arterial disease with right BKA, who presented to the emergency room with complaints of abdominal pain. History is somewhat difficult to obtain as the patient is rather lethargic in frequently falls asleep during our conversation. She requires tactile stimulation to keep her awake. She does say that she has had right upper quadrant abdominal pain for the last 4 days. Last night she had 1 episode of nausea with vomiting that she describes as bile. A CT of her abdomen and pelvis was completed and showed mild pulmonary edema, small right and moderate size left pleural effusion and a 3.3 cm mass in the left hepatic lobe which is a new finding from March of 2022. There were concerns for hepatocellular carcinoma. 03/29/2024: Patient scheduled for EGD today on hold waiting on biopsy results, elishade on hold for liver biopsy. Patient lethargic and falling asleep during assessment but did report continued pain to the RUQ of her ABD. Patient on 2L O2 which she currently wears at night at home. Will attempt to contact patient Art Educator at [facility] regarding medications and why he stopped her lasix per patient and no Entresto on board patient is a poor historian. 03/30/2024: Liver biopsy still pending, has continued RUQ abd pain encouraged her to use PO pain medication and IV for breakthrough pain. Patient did report anxiety and itching will add Hydroxyzine to cover both. Spoke with patient [facility] can start entresto low dose her lasix 80mg was stopped due to EVAN on previous admission at [facility]. 03/31/2024: Patient continues to have same abdominal pain is super focused on her pain medication reported that the PO Oxy taste bad will transition to [place] is requesting more pain medication however during our interview and assessment patient fell asleep mid sentence. Liver biopsy is still pending further treatment to be discussed pending results. Patient did not tolerate Entresto drop in BP and worsening kidney function discontinued will continue with just Lasix p.o. 40. 04/01/2024: Assumed care for pt, today, she is resting with eyes closed easily arouses, she reports ongoing RUQ pain citing its 04/25. Mrs. Vaughn continues to close her eyes and rest comfortably during interview. She denies any overnight c/o at this time. Chart reveals hypotension this morning, Entresto is currently on hold. Kidney function continues to be decline, liver biopsy is pending. 04/02/2024: Patient a little more comfortable today still with same ABD pain, more alert and wake today. Vitals stable and labs unremarkable currently waiting on liver biopsy to determine treatment. 04/03/2024: spoke with past follow just and patient's liver biopsy very suspicious of neoplasm had to be sent out for further examination likely metastatic. Reviewed patient chart and she had a previous CT chest that had shown a suspicious upper lobe nodule 14mm did a follow up CT showing 1.9 cm nodule in right lung upper lobe, worsened from 10/15/2023, consistent with primary bronchogenic carcinoma and Mild right hilar and mediastinal lymphadenopathy, which may be reactive or metastatic disease. GI updated and oncology consulted. Patient updated on current findings, pathology stated it could take up to a week longer to get final results back 04/04 - assuming care for today. Oncology was consulted- saw pt 04/03. Pt is seen and examined. She is weak and in pain, buit feels ok overall. Wants to stay here tonight- as she had an episode when everything was blurry and she felt like if she goes home- she would fall. She wants to wait till biopsy results are back to make an official decision about plan of care. 04/05: Assum
[2024-04-05 11:36] LABS: Glucose Point of Care 257 mg/dl (65-105)
--- NOTE | 2024-04-05 11:46 | PM.IMPN ---
Progress Note: A&P Assessment and Plan (1) Acute and chronic respiratory failure with hypoxia: Code(s): J96.21 - Acute and chronic respiratory failure with hypoxia Status: Acute Assessment and Plan: Acute on Chronis Respiratory failure with hypoxia-At Baseline RESOLVED HX of HF 20-25% EF likely secondary to HF CT ABD showed bilateral pleural effusions CXR Cardiomegaly with mild interstitial edema. 2 L nasal cannula wean as tolerated wears 2L at night currently pt is on oral lasix Spironolactone Incentive spirometer (2) Decreased appetite: Code(s): R63.0 - Anorexia Status: Acute Assessment and Plan: Secondary to comorbidities (3) Liver mass: Code(s): R16.0 - Hepatomegaly, not elsewhere classified Status: Acute Assessment and Plan: See below (4) Abdominal pain: Code(s): R10.9 - Unspecified abdominal pain Status: Acute Assessment and Plan: ABD Pain/N/V/Liver Mass CT abdomen and pelvis in the emergency room showed 3.3 cm mass in the left hepatic lobe that was new from March of 2022. No reports of bloody stool or bloody emesis. Last bowel movement was yesterday. She has a recent history of C diff infection. Repeat C diff testing. Protonix daily Liver biopsy was ordered by the emergency room. Eliquis on hold GI was consulted given presence of a liver mass, recs are appreciated 03/29/2023: EGD held today GI would like biopsy results first due to patient low EF AFP pending liver biopsy pending PPI/Carafate added by GI 03/30/2024 Liver biopsy pending further intervention pending results 04/03/2024 Prelim showing neoplasm Sent for further testing could take up to 1 week for final Did follow-up CT chest which showed: 1.9 cm nodule in right lung upper lobe, worsened from 10/15/2023, consistent with primary bronchogenic carcinoma likely primary Mild right hilar and mediastinal lymphadenopathy, which may be reactive or metastatic disease Oncology consulted Notes reviewed: Likely metastatic lung cancer status post liver biopsy. Patient is the 58-year-old female with multiple comorbidities including peripheral vascular disease status post right-sided BKA, diabetes, congestive heart failure, COPD and history of smoking quit in 2006. She came into the hospital with right upper quadrant abdominal pain with some shortness of breath and tiredness and fatigue. CT chest showed 1.9 cm right upper lobe lung nodule with right hilar and mediastinal lymphadenopathy. There was a small right and moderate left-sided pleural effusion and liver mass. CT abdomen and pelvis showed 3.3 cm left hepatic lobe mass. Patient underwent liver biopsy and pathology is pending. I have discussed the likelihood of metastatic non-small cell lung cancer and treatment for stage IV disease. I have provided her my office information for follow-up . -pt awaiting or official biopsy result Continue pain control in hospital hopeful dc silvia when oncology decides full plan. Prelim for biopsy neoplasm, follow up CT 1.9 CM RT upper lobe nodule carcinoma likely primary with metastasis to liver. Oncology consulted to discuss treatment options. (5) Cirrhosis: Code(s): K74.60 - Unspecified cirrhosis of liver Status: Acute Assessment and Plan: see above (6) Compression fracture of L2 lumbar vertebra: Qualifiers: Encounter type: initial encounter Qualified Code(s): S32.020A - Wedge compression fracture of second lumbar vertebra, initial encounter for closed fracture Code(s): S32.020A - Wedge compression fracture of second lumbar vertebra, initial encounter for closed fracture Status: Acute (7) Acute on chronic combined systolic (congestive) and diastolic (congestive) heart failure: Code(s): I50.43 - Acute on chronic combined systolic (congestive) and diastolic (congestive) heart failure Status: Acute Assessment and Pl
[2024-04-05] MEDS: INSULIN ASPART (*BKC) 100 UNITS/ML 10 UNITS SUB-Q (12:19)
[2024-04-05] MEDS: INSULIN GLARGINE (*BKC) 100 UNITS/ML 8 UNITS SUB-Q (12:19)
[2024-04-05] MEDS: INSULIN ASPART (*BKC) 100 UNITS/ML SUB-Q (12:19)
[2024-04-05] MEDS: polyethylene glycoL 3350 17 GM POWD.PACK PO (12:30)
[2024-04-05 13:53] VITALS: BP 115/71; PULSE 77; RESP 18; TEMP 36.6; O2SAT 100
--- NOTE | 2024-04-05 14:07 | PCPTNOTE ---
Attempted to see patient for PT, however patient reported she just got pain medication 15 minutes ago and is too sleepy to participate with therapy and functional transfers. Patient was falling asleep while talking with this therapist. Patient unable to be seen for PT for this reason.
[2024-04-05 16:50] LABS: Glucose Point of Care 97 mg/dl (65-105)
[2024-04-05 20:30] VITALS: PULSE 79; RESP 17; O2SAT 100
[2024-04-05 20:32] VITALS: BP 100/44; PULSE 79; RESP 17; TEMP 36.5; O2SAT 100
[2024-04-05 20:59] LABS: Glucose Point of Care 155 mg/dl (65-105)
[2024-04-06 08:06] LABS: Glucose Point of Care 157 mg/dl (65-105)
[2024-04-06 08:14] VITALS: PULSE 80; RESP 18; O2SAT 96
[2024-04-06] MEDS: UMECLIDINIUM/VILANTEROL 62.5-25 MCG ELLIPTA 1 PUFF INHALATION (08:14)
[2024-04-06] MEDS: PREGABALIN (*CRX) 50 MG CAPSULE PO ×2 (08:41→20:34)
[2024-04-06] MEDS: FUROSEMIDE 40 MG TABLET PO (08:41)
[2024-04-06] MEDS: PANTOPRAZOLE 40 MG TABLET PO (08:41)
[2024-04-06] MEDS: DULoxetine HCL 60 MG CAPSULE.DR PO (08:41)
[2024-04-06] MEDS: CLOPIDOGREL BISULFATE 75 MG TABLET PO (08:41)
[2024-04-06] MEDS: HYDROmorphone HCL INJ (*CRX) 1 MG/ML SYR IV PUSH ×2 (08:42→18:42)
[2024-04-06] MEDS: NEOMYCIN/POLYMYXIN/BACITR/HC OINT 15 GM TUBE 1 APPLIC TOPICAL ×2 (08:44→20:38)
[2024-04-06] MEDS: INSULIN ASPART (*BKC) 100 UNITS/ML 10 UNITS SUB-Q ×3 (08:45→18:20)
[2024-04-06 12:19] LABS: Glucose Point of Care 140 mg/dl (65-105)
[2024-04-06] MEDS: INSULIN GLARGINE (*BKC) 100 UNITS/ML 8 UNITS SUB-Q (12:54)
--- NOTE | 2024-04-06 13:17 | PM.IMPN ---
Progress Note: A&P Assessment and Plan (1) Acute and chronic respiratory failure with hypoxia: Code(s): J96.21 - Acute and chronic respiratory failure with hypoxia Status: Acute Assessment and Plan: Acute on Chronis Respiratory failure with hypoxia pt is back to her Baseline at 2 liters HX of HF 20-25% EF likely secondary to HF CT ABD showed bilateral pleural effusions CXR Cardiomegaly with mild interstitial edema. 2 L nasal cannula wean as tolerated wears 2L at night currently pt is on oral lasix Spironolactone Incentive spirometer (2) Decreased appetite: Code(s): R63.0 - Anorexia Status: Acute Assessment and Plan: Secondary to comorbidities (3) Liver mass: Code(s): R16.0 - Hepatomegaly, not elsewhere classified Status: Acute Assessment and Plan: See below (4) Abdominal pain: Code(s): R10.9 - Unspecified abdominal pain Status: Acute Assessment and Plan: ABD Pain/N/V/Liver Mass CT abdomen and pelvis in the emergency room showed 3.3 cm mass in the left hepatic lobe that was new from March of 2022. No reports of bloody stool or bloody emesis. Last bowel movement was yesterday. She has a recent history of C diff infection. Repeat C diff testing. Protonix daily sp liver biopsy 03/29/2023: EGD held today GI would like biopsy results first due to patient low EF AFP pending liver biopsy pending PPI/Carafate added by GI 03/30/2024 Liver biopsy pending 04/03/2024 Prelim showing neoplasm Sent for further testing could take up to [address] chest which showed: 1.9 cm nodule in right lung upper lobe, worsened from 10/15/2023, consistent with primary bronchogenic carcinoma likely primary Mild right hilar and mediastinal lymphadenopathy, which may be reactive or metastatic disease Oncology consulted states Likely metastatic lung cancer status post liver biopsy. Patient is the 58-year-old female with multiple comorbidities including peripheral vascular disease status post right-sided BKA, diabetes, congestive heart failure, COPD and history of smoking quit in 2006. She came into the hospital with right upper quadrant abdominal pain with some shortness of breath and tiredness and fatigue. CT chest showed 1.9 cm right upper lobe lung nodule with right hilar and mediastinal lymphadenopathy. There was a small right and moderate left-sided pleural effusion and liver mass. CT abdomen and pelvis showed 3.3 cm left hepatic lobe mass. Patient underwent liver biopsy and pathology is pending. I have discussed the likelihood of metastatic non-small cell lung cancer and treatment for stage IV disease. I have provided her my office information for follow-up . 04/06/2024 -pt wanting to await for official biopsy result Continue pain control in hospital follow up CT 1.9 CM RT upper lobe nodule carcinoma likely primary with metastasis to liver. Oncology consulted to discuss treatment options. awaiting BM and official biospy report - dc soon with oncology follow up (5) Cirrhosis: Code(s): K74.60 - Unspecified cirrhosis of liver Status: Acute Assessment and Plan: see above (6) Compression fracture of L2 lumbar vertebra: Qualifiers: Encounter type: initial encounter Qualified Code(s): S32.020A - Wedge compression fracture of second lumbar vertebra, initial encounter for closed fracture Code(s): S32.020A - Wedge compression fracture of second lumbar vertebra, initial encounter for closed fracture Status: Acute (7) Acute on chronic combined systolic (congestive) and diastolic (congestive) heart failure: Code(s): I50.43 - Acute on chronic combined systolic (congestive) and diastolic (congestive) heart failure Status: Acute Assessment and Plan: Acute on chronic combined systolic and diastolic heart failure BNP [address] showed BL pleural effusions on admission card
[2024-04-06 14:00] VITALS: BP 101/46; PULSE 81; RESP 12; TEMP 36.5; O2SAT 92
[2024-04-06 16:56] LABS: Glucose Point of Care 166 mg/dl (65-105)
[2024-04-06 20:19] VITALS: BP 106/52; PULSE 78; RESP 20; TEMP 36.5; O2SAT 95
[2024-04-06] MEDS: SENNA/DOCUSATE SODIUM TABLET 1 TAB PO (20:34)
[2024-04-06 20:35] VITALS: PULSE 78; RESP 20; O2SAT 91
[2024-04-06] MEDS: ALPRAZolam (*CRX) 0.5 MG TABLET PO (20:35)
[2024-04-06 20:40] LABS: Glucose Point of Care 259 mg/dl (65-105)
[2024-04-06 21:11] VITALS: O2SAT 91
[2024-04-07] MEDS: HYDROmorphone HCL INJ (*CRX) 1 MG/ML SYR IV PUSH ×5 (01:15→20:39)
[2024-04-07 04:46] VITALS: BP 114/49; PULSE 74; RESP 18; TEMP 36.6; O2SAT 99
[2024-04-07] MEDS: LEVOTHYROXINE SODIUM 50 MCG TABLET PO (05:44)
[2024-04-07 08:20] LABS: Glucose Point of Care 147 mg/dl (65-105)
[2024-04-07 09:00] LABS: Alanine Aminotransferase 12 U/L (6-35); Alkaline Phosphatase 97 U/L (38-126); Anion Gap 8 mmol/L (4-12); Aspartate Amino Transferase 26 U/L (14-36); Bilirubin,Total 0.4 mg/dL (0.2-1.3); Blood Urea Nitrogen 23 mg/dL (7-17); Calcium 8.6 mg/dL (8.4-10.2); Carbon Dioxide 31 mmol/L (22-30); Chloride 95 mmol/L (98-107); Estimated CRCL calculation 45 ml/min; Estimated Glomerular Filt Rate 51; Glucose 172 mg/dL (65-110); Potassium 4.6 mmol/L (3.4-5.0); Sodium 134 mmol/L (137-145)
[2024-04-07] MEDS: INSULIN ASPART (*BKC) 100 UNITS/ML 10 UNITS SUB-Q ×3 (09:00→17:54)
[2024-04-07] MEDS: FUROSEMIDE 40 MG TABLET PO (09:03)
[2024-04-07] MEDS: CLOPIDOGREL BISULFATE 75 MG TABLET PO (09:03)
[2024-04-07] MEDS: PANTOPRAZOLE 40 MG TABLET PO (09:03)
[2024-04-07] MEDS: PREGABALIN (*CRX) 50 MG CAPSULE PO ×2 (09:03→20:43)
[2024-04-07] MEDS: NEOMYCIN/POLYMYXIN/BACITR/HC OINT 15 GM TUBE 1 APPLIC TOPICAL ×2 (09:04→20:47)
[2024-04-07] MEDS: DULoxetine HCL 60 MG CAPSULE.DR PO (09:04)
[2024-04-07 09:23] LABS: Hemoglobin 12.3 g/dL (12.0-15.0); Immature Platelet Fraction Pct 8.5 % (0.9-11.2); Mean Corpuscular HGB Conc 28.6 g/dl (32-36); Mean Corpuscular Hemoglobin 21.7 pg (26-34); Mean Corpuscular Volume 75.8 fl (80-100); Mean Platelet Volume 11.2 fl (7.4-10.4); Platelet Count Result 179 k/mm3 (150-375); Red Blood Count 5.67 M/mm3 (4.2-5.4); Red Cell Distribution Width 18.3 % (11.5-14.5); White Blood Count 6.4 K/mm3 (4.5-10.0)
--- NOTE | 2024-04-07 09:46 | PCOTNOTE ---
Attempted to see Patient for OT treatment session at this time. Patient stated she had just received her IV pain medication. Therapist continued stating this would be a good time to perform therapy. Patient refused stating she needs it to calm her pain down and is feeling loopy unable to stay awake. Will try back this afternoon.
[2024-04-07 11:54] LABS: Glucose Point of Care 172 mg/dl (65-105)
[2024-04-07] MEDS: INSULIN GLARGINE (*BKC) 100 UNITS/ML 8 UNITS SUB-Q (12:57)
[2024-04-07 14:00] VITALS: BP 104/42; PULSE 89; RESP 16; TEMP 36.9; O2SAT 98
[2024-04-07 16:26] LABS: Glucose Point of Care 147 mg/dl (65-105)
[2024-04-07 19:28] VITALS: BP 101/55; PULSE 79; RESP 18; TEMP 36.5; O2SAT 96
[2024-04-07] MEDS: SENNA/DOCUSATE SODIUM TABLET 1 TAB PO (20:43)
[2024-04-07 20:59] LABS: Glucose Point of Care 153 mg/dl (65-105)
[2024-04-07] MEDS: ALPRAZolam (*CRX) 0.5 MG TABLET PO (21:23)
[2024-04-07] MEDS: HYDROcodone/acetaminophen (*CRX) 7.5-325 MG TABLET 1 TAB PO (21:23)
[2024-04-07] MEDS: hydrOXYzine HCL 25 MG TABLET PO (23:17)
[2024-04-08] MEDS: HYDROmorphone HCL INJ (*CRX) 1 MG/ML SYR IV PUSH ×3 (01:29→22:35)
[2024-04-08 04:40] VITALS: BP 134/68; PULSE 80; RESP 20; TEMP 36.5; O2SAT 98
[2024-04-08] MEDS: LEVOTHYROXINE SODIUM 50 MCG TABLET PO (06:31)
[2024-04-08 07:30] VITALS: O2SAT 98
[2024-04-08 07:44] LABS: Glucose Point of Care 144 mg/dl (65-105)
[2024-04-08] MEDS: UMECLIDINIUM/VILANTEROL 62.5-25 MCG ELLIPTA 1 PUFF INHALATION (08:10)
[2024-04-08] MEDS: PANTOPRAZOLE 40 MG TABLET PO (09:04)
[2024-04-08] MEDS: FUROSEMIDE 40 MG TABLET PO (09:04)
[2024-04-08] MEDS: PREGABALIN (*CRX) 50 MG CAPSULE PO ×2 (09:04→22:37)
[2024-04-08] MEDS: CLOPIDOGREL BISULFATE 75 MG TABLET PO (09:04)
[2024-04-08] MEDS: DULoxetine HCL 60 MG CAPSULE.DR PO (09:05)
[2024-04-08] MEDS: INSULIN ASPART (*BKC) 100 UNITS/ML 10 UNITS SUB-Q ×3 (09:05→17:50)
[2024-04-08] MEDS: NEOMYCIN/POLYMYXIN/BACITR/HC OINT 15 GM TUBE 1 APPLIC TOPICAL ×2 (09:11→22:38)
[2024-04-08 12:10] LABS: Glucose Point of Care 193 mg/dl (65-105)
[2024-04-08] MEDS: INSULIN GLARGINE (*BKC) 100 UNITS/ML 8 UNITS SUB-Q (12:41)
--- NOTE | 2024-04-08 14:17 | P.PNIM_ITS ---
Progress Note: A&P Assessment and Plan (1) Acute and chronic respiratory failure with hypoxia: Code(s): J96.21 - Acute and chronic respiratory failure with hypoxia Status: Acute (2) Decreased appetite: Code(s): R63.0 - Anorexia Status: Acute (3) Liver mass: Code(s): R16.0 - Hepatomegaly, not elsewhere classified Status: Acute (4) Abdominal pain: Code(s): R10.9 - Unspecified abdominal pain Status: Acute Assessment and Plan: Patient reports mid to right upper quadrant abdominal pain for 4 days. Pain is progressively gotten worse at home and therefore she sought treatment. She describes the pain as intermittent stabbing. She also reports 1 episode of nausea with vomiting that she described as bile. CT abdomen and pelvis in the emergency room showed 3.3 cm mass in the left hepatic lobe that was new from March of 2022. She also had small right and moderate size left pleural effusion with pulmonary edema. Differentials for abdominal pain include cirrhosis versus gastritis versus gastroenteritis versus less likely PUD * Received Dilaudid in the emergency room which she states helps her pain. She is lethargic now. Hold on Dilaudid. * No reports of bloody stool or bloody emesis. Last bowel movement was yesterday. She has a recent history of C diff infection. Repeat C diff testing. * Protonix daily * Liver biopsy was ordered by the emergency room. This is on hold per GI. * GI was consulted given presence of a liver mass, recs are appreciated * 04/07 had BM- abd is better. will need a good BM regimen upon discharge anticipate d/s home tomorrow with onc f/u (5) Cirrhosis: Code(s): K74.60 - Unspecified cirrhosis of liver Status: Acute (6) Compression fracture of L2 lumbar vertebra: Qualifiers: Encounter type: initial encounter Qualified Code(s): S32.020A - Wedge compression fracture of second lumbar vertebra, initial encounter for closed fracture Code(s): S32.020A - Wedge compression fracture of second lumbar vertebra, initial encounter for closed fracture Status: Acute (7) Acute on chronic combined systolic (congestive) and diastolic (congestive) heart failure: Code(s): I50.43 - Acute on chronic combined systolic (congestive) and diastolic (congestive) heart failure Status: Acute Assessment and Plan: Significant history of heart failure with reduced ejection fraction estimated at 20-25%. The patient has pacemaker and cardiac defibrillator present. She reports recently being [facility] 3 weeks ago in her Lasix was stopped. She appears fluid overloaded with pitting edema to her left lower extremity and pulmonary edema with small pleural effusion seen on x-ray. * Echo from October 18, 2019 for showed severe global systolic dysfunction with an estimated EF of 20-25%. * Renal function stable. Will give 40 of IV Lasix now. Resume home spironolactone. * BNP 4320 * Strict I's and O, daily weight * low-sodium diet Plan DVT prophylaxis: Eliquis GI prophylaxis: Protonix Glycemic control: Q.6 Accu-Cheks while in p.o., low-dose SSI Code Status: DNR Disposition: 58-year-old female who presents from her home with complaints of right-sided abdominal pain x4 days with 1 episode of nausea and vomiting. CT of her abdomen shows at 3.3 cm mass in the liver questionable for HCC. Liver biopsy was ordered by the emergency room. GI was consulted. She received Dilaudid for her pain which has made her lethargic and now requiring oxygen at 2 L. She does have COPD but normally only wears oxygen at night. She was also recent
[2024-04-08 17:12] LABS: Glucose Point of Care 70 mg/dl (65-105)
[2024-04-08 17:30] VITALS: BP 114/56; PULSE 76; RESP 16; TEMP 36.6; O2SAT 95
[2024-04-08] MEDS: MAGNESIUM CITRATE 300 ML BTL 150 ML PO (17:49)
[2024-04-08 22:00] VITALS: BP 128/62; PULSE 80; RESP 18; TEMP 36.1; O2SAT 96
[2024-04-08] MEDS: SENNA/DOCUSATE SODIUM TABLET 1 TAB PO (22:37)
[2024-04-09] MEDS: HYDROmorphone HCL INJ (*CRX) 1 MG/ML SYR IV PUSH ×2 (01:39→07:01)
[2024-04-09 01:48] VITALS: BP 110/56
[2024-04-09 06:00] VITALS: BP 119/56; PULSE 71; RESP 20; TEMP 36.7; O2SAT 100
[2024-04-09] MEDS: LEVOTHYROXINE SODIUM 50 MCG TABLET PO (06:52)
[2024-04-09 08:02] LABS: Glucose Point of Care 121 mg/dl (65-105)
[2024-04-09 08:13] LABS: Glucose Point of Care 101 mg/dl (65-105)
--- NOTE | 2024-04-09 09:13 | PM.IMPN ---
Progress Note: A&P Assessment and Plan (1) Acute and chronic respiratory failure with hypoxia: Code(s): J96.21 - Acute and chronic respiratory failure with hypoxia Status: Acute (2) Decreased appetite: Code(s): R63.0 - Anorexia Status: Acute (3) Liver mass: Code(s): R16.0 - Hepatomegaly, not elsewhere classified Status: Acute (4) Abdominal pain: Code(s): R10.9 - Unspecified abdominal pain Status: Acute Assessment and Plan: Patient reports mid to right upper quadrant abdominal pain for 4 days. Pain is progressively gotten worse at home and therefore she sought treatment. She describes the pain as intermittent stabbing. She also reports 1 episode of nausea with vomiting that she described as bile. CT abdomen and pelvis in the emergency room showed 3.3 cm mass in the left hepatic lobe that was new from March of 2022. She also had small right and moderate size left pleural effusion with pulmonary edema. Differentials for abdominal pain include cirrhosis versus gastritis versus gastroenteritis versus less likely PUD Received Dilaudid in the emergency room which she states helps her pain. She is lethargic now. Hold on Dilaudid. No reports of bloody stool or bloody emesis. Last bowel movement was yesterday. She has a recent history of C diff infection. Repeat C diff testing. Protonix daily Liver biopsy was ordered by the emergency room. This is on hold per GI. GI was consulted given presence of a liver mass, recs are appreciated 04/07 had BM- abd is better. will need a good BM regimen upon discharge anticipate d/s home tomorrow with onc f/u (5) Cirrhosis: Code(s): K74.60 - Unspecified cirrhosis of liver Status: Acute (6) Compression fracture of L2 lumbar vertebra: Qualifiers: Encounter type: initial encounter Qualified Code(s): S32.020A - Wedge compression fracture of second lumbar vertebra, initial encounter for closed fracture Code(s): S32.020A - Wedge compression fracture of second lumbar vertebra, initial encounter for closed fracture Status: Acute (7) Acute on chronic combined systolic (congestive) and diastolic (congestive) heart failure: Code(s): I50.43 - Acute on chronic combined systolic (congestive) and diastolic (congestive) heart failure Status: Acute Assessment and Plan: Significant history of heart failure with reduced ejection fraction estimated at 20-25%. The patient has pacemaker and cardiac defibrillator present. She reports recently being [facility] 3 weeks ago in her Lasix was stopped. She appears fluid overloaded with pitting edema to her left lower extremity and pulmonary edema with small pleural effusion seen on x-ray. Echo from October 18, 2019 for showed severe global systolic dysfunction with an estimated EF of 20-25%. Renal function stable. Will give 40 of IV Lasix now. Resume home spironolactone. BNP 4320 Strict I's and O, daily weight low-sodium diet Plan DVT prophylaxis: Eliquis GI prophylaxis: Protonix Glycemic control: Q.6 Accu-Cheks while in p.o., low-dose SSI Code Status: DNR Disposition: 58-year-old female who presents from her home with complaints of right-sided abdominal pain x4 days with 1 episode of nausea and vomiting. CT of her abdomen shows at 3.3 cm mass in the liver questionable for HCC. Liver biopsy was ordered by the emergency room. GI was consulted. She received Dilaudid for her pain which has made her lethargic and now requiring oxygen at 2 L. She does have COPD but normally only wears oxygen at night. She was also recently stopped on her Lasix 3 weeks ago during a hospitalization at [facility]. She appears fluid overloaded with pulmonary edema and lower extremity pitting edema. Resuming Lasix IV push today. Patient came from home and is wanting to return home at discharge.
[2024-04-09] MEDS: DULoxetine HCL 60 MG CAPSULE.DR PO (10:34)
[2024-04-09] MEDS: CLOPIDOGREL BISULFATE 75 MG TABLET PO (10:34)
[2024-04-09] MEDS: PREGABALIN (*CRX) 50 MG CAPSULE PO ×2 (10:35→21:21)
[2024-04-09] MEDS: FUROSEMIDE 40 MG TABLET PO (10:35)
[2024-04-09] MEDS: NEOMYCIN/POLYMYXIN/BACITR/HC OINT 15 GM TUBE 1 APPLIC TOPICAL ×2 (10:35→21:24)
--- NOTE | 2024-04-09 11:42 | PC.NURSE ---
RN educated pt on the importance of carafate but pt states that she doesn't need it and doesn't want to take it.
[2024-04-09 13:07] LABS: Glucose Point of Care 230 mg/dl (65-105)
[2024-04-09 15:00] VITALS: BP 106/49; PULSE 76; RESP 16; TEMP 36.3; O2SAT 94
[2024-04-09] MEDS: INSULIN GLARGINE (*BKC) 100 UNITS/ML 8 UNITS SUB-Q (15:24)
[2024-04-09] MEDS: INSULIN ASPART (*BKC) 100 UNITS/ML SUB-Q ×2 (15:25→21:24)
[2024-04-09] MEDS: INSULIN ASPART (*BKC) 100 UNITS/ML 10 UNITS SUB-Q (15:27)
[2024-04-09 17:51] LABS: Glucose Point of Care 116 mg/dl (65-105)
[2024-04-09] MEDS: SENNA/DOCUSATE SODIUM TABLET 1 TAB PO (21:21)
[2024-04-09 21:36] LABS: Glucose Point of Care 222 mg/dl (65-105)
[2024-04-09 21:59] VITALS: BP 119/59; PULSE 95; RESP 14; TEMP 36.4; O2SAT 94
[2024-04-10] MEDS: LEVOTHYROXINE SODIUM 50 MCG TABLET PO (06:01)
[2024-04-10 06:21] VITALS: BP 131/62; PULSE 92; RESP 16; TEMP 36.4; O2SAT 96
[2024-04-10 09:20] LABS: Glucose Point of Care 179 mg/dl (65-105)
--- NOTE | 2024-04-10 09:26 | PCOTNOTE ---
Patient refused treatment this session due being tearful and upset. Patient reports she does not want to do therapy today.
[2024-04-10] MEDS: DULoxetine HCL 60 MG CAPSULE.DR PO (10:42)
[2024-04-10] MEDS: FUROSEMIDE 40 MG TABLET PO (10:42)
[2024-04-10] MEDS: HYDROmorphone HCL INJ (*CRX) 1 MG/ML SYR IV PUSH (10:42)
[2024-04-10] MEDS: CLOPIDOGREL BISULFATE 75 MG TABLET PO (10:42)
[2024-04-10] MEDS: PANTOPRAZOLE 40 MG TABLET PO (10:43)
[2024-04-10] MEDS: NEOMYCIN/POLYMYXIN/BACITR/HC OINT 15 GM TUBE 1 APPLIC TOPICAL (10:43)
[2024-04-10] MEDS: PREGABALIN (*CRX) 50 MG CAPSULE PO (10:43)
--- NOTE | 2024-04-10 11:30 | PM.DS ---
DS: Admitting Diagnosis Discharge Date 04/10/2024 Admitting Diagnosis Abdominal pain DS: Discharge Diagnosis Discharge Diagnosis (1) Acute and chronic respiratory failure with hypoxia: Code(s): J96.21 - Acute and chronic respiratory failure with hypoxia Status: Resolved Assessment and Plan: Patient's respiratory function at baseline Imaging performed during hospitalization includes CT of the chest with contrast that demonstrated a 1.9 cm nodule in the right upper lobe worsened from 10/15/2023 consistent with primary bronchogenic carcinoma. There is mild postobstructive pneumonia in the right upper lobe as well. In addition there is mild right hilar and mediastinal lymphadenopathy which could either be reactive or metastatic disease. Also imaged on this was a liver mass suspicious for metastatic disease. Final biopsy results are pending, however patient has been consulted on by Oncology and he suspects patient to have stage IV metastatic disease. Patient is stable at this time on room air and wants to discharge home. She will follow up with Oncology as outpatient. (2) Decreased appetite: Code(s): R63.0 - Anorexia Status: Acute Assessment and Plan: Secondary to most likely metastatic disease. (3) Liver mass: Code(s): R16.0 - Hepatomegaly, not elsewhere classified Status: Acute Assessment and Plan: Metastatic disease again suspected. Liver biopsy performed on March 29. Preliminary evaluation by radiologist suspects hepatocellular neoplasm. CT abdomen and pelvis demonstrating an abnormally enhancing mass within the left lobe of the liver measuring up to 3.2 cm. There is a cirrhotic morphology of the liver as well. This is felt to be the source of the patient's presenting abdominal pain. Patient has been consulted on by Dr. Edwards. His note indicates ?likely metastatic lung cancer status post liver biopsy.? His note also states that he has ?discussed the likelihood of metastatic non-small cell lung cancer and treatment for stage IV disease and I have provided her my office information for follow-up. ? He indicated in his note that he had answered all questions to her satisfaction. (4) Abdominal pain: Code(s): R10.9 - Unspecified abdominal pain Status: Acute Assessment and Plan: Patient reports mid to right upper quadrant abdominal pain for 4 days. Pain is progressively gotten worse at home and therefore she sought treatment. She describes the pain as intermittent stabbing. She also reports 1 episode of nausea with vomiting that she described as bile. CT abdomen and pelvis in the emergency room showed 3.3 cm mass in the left hepatic lobe that was new from March of 2022. She also had small right and moderate size left pleural effusion with pulmonary edema. Differentials for abdominal pain include cirrhosis versus gastritis versus gastroenteritis versus less likely PUD Received Dilaudid in the emergency room which she states helps her pain. She is lethargic now. Hold on Dilaudid. No reports of bloody stool or bloody emesis. Last bowel movement was yesterday. She has a recent history of C diff infection. Repeat C diff testing. Protonix daily Liver biopsy was ordered by the emergency room. This is on hold per GI. GI was consulted given presence of a liver mass, recs are appreciated 04/07 had BM- abd is better. will need a good BM regimen upon discharge anticipate d/s home tomorrow with onc f/u 04/09/24: Date of discharge: See problem number 4. (5) Cirrhosis: Code(s): K74.60 - Unspecified cirrhosis of liver Status: Acute Assessment and Plan: Most likely secondary to hepatocellular neoplasm. (6) Compression fracture of L2 lumbar vertebra: Qualifiers: Encounter type: initial encounter Qualified Code(s): S32.020A - Wedge compression fracture of second lumbar vertebra, initial encounter for closed fracture
[2024-04-10 12:11] LABS: Glucose Point of Care 171 mg/dl (65-105)
[2024-04-10 14:00] VITALS: BP 125/58; PULSE 94; RESP 16; TEMP 36.4; O2SAT 95
[2024-04-10] MEDS: INSULIN GLARGINE (*BKC) 100 UNITS/ML 8 UNITS SUB-Q (15:06)
[2024-04-10] MEDS: HYDROcodone/acetaminophen (*CRX) 5-325 MG TABLET 1 TAB PO (15:40)
== END 2024-04-10 16:00 | disposition home health service (06) | DRG 435 ==
LOC: ANHED 06:58 → ANH2MED 07:24
PROVIDERS: Nurse Practitioner; Nurse Practitioner Acute Care; Nurse Practitioner Family; Admitting Provider Internal Medicine; Emergency Provider Emergency Medicine; PCP Emergency Medicine; Visit Provider Nurse Practitioner Adult Health
DX: C78.7 Secondary malignant neoplasm of liver and intrahepatic bile duct (principal); I50.43 Acute on chronic combined systolic (congestive) and diastolic (congestive) heart failure; J18.8 Other pneumonia, unspecified organism; J96.21 Acute and chronic respiratory failure with hypoxia; C34.90 Malignant neoplasm of unspecified part of unspecified bronchus or lung; K74.69 Other cirrhosis of liver; K52.9 Noninfective gastroenteritis and colitis, unspecified; K29.70 Gastritis, unspecified, without bleeding; I25.10 Atherosclerotic heart disease of native coronary artery without angina pectoris; E11.610 Type 2 diabetes mellitus with diabetic neuropathic arthropathy; J44.9 Chronic obstructive pulmonary disease, unspecified; E11.51 Type 2 diabetes mellitus with diabetic peripheral angiopathy without gangrene; I73.9 Peripheral vascular disease, unspecified; E11.42 Type 2 diabetes mellitus with diabetic polyneuropathy; I25.5 Ischemic cardiomyopathy; R63.0 Anorexia; Z66 Do not resuscitate; Z95.810 Presence of automatic (implantable) cardiac defibrillator; Z99.81 Dependence on supplemental oxygen; Z95.1 Presence of aortocoronary bypass graft; Z89.511 Acquired absence of right leg below knee; Z99.3 Dependence on wheelchair; Z90.49 Acquired absence of other specified parts of digestive tract; Z79.4 Long term (current) use of insulin; Z87.891 Personal history of nicotine dependence; Z95.5 Presence of coronary angioplasty implant and graft
CPT/HCPCS: 36415; 47000; 71045; 71260; 74177; 76942; 80053; 80074; 81001; 82105; 82140; 82948; 83690; 83735; 83880; 85025; 85027; 85055; 85610; 85730; 88307; 88312; 88313; 88342; 93005; 94640; 96374; 96375; 96376; 97110; 97161; 97166; 97530; 99285; A9270; J1170; J1815; J1940; J2060; Q9967

== ENCOUNTER 2024-05-02 02:38 | Emergency (ER) | payer MEDICARE, MEDICAID, SELFPAY ==
[2024-05-02] VITALS (9 sets, daily range): BP systolic 98–139; BP diastolic 53–88; PULSE 89–99; RESP 12–20; TEMP 36.3–36.8; O2SAT 94–98
--- NOTE | ~2024-05-02 | CT_ITS ---
CTA chest PE protocol Ordering provider: Miller Collins MD History: 58 years Female with . SOB, hsx of cancer . Comparison: None. Technique: CT angiogram chest was performed following timed intravenous injection of contrast. Thin s lice axial images and reformatted coronal images were obtained. Three dimensional reformatted images of the chest were also obtained using a [employer] workstation. . Automated exposure control and iterati ve reconstruction technique were employed. The dose-length product was 714.65 mGy-cm. 100 mL Omnipaqu e 350 was given IV. Findings: PULMONARY ARTERIES: No pulmonary embolus. VISUALIZED THORACIC INLET: Normal. MEDIASTINUM: Aorta/coronary arteries: Mild atheromatous disease. Heart/other: The heart is slightly enlarged. Lymph nodes: . Right hilar adenopathy is seen measuring 1.9 cm. Subcarinal lymphadenopathy is seen. P rominent prevascular lymph nodes are also noted. Postoperative changes in the mediastinum. LUNGS: Left lower lobe atelectasis versus pneumonia. Large left pleural effusion. Minimal atelectatic change s in the right lung base with mild to moderate pleural effusion. No pulmonary nodules or masses. No p neumothorax. VISUALIZED UPPER ABDOMEN: 3.4 cm Focal hypodensity adjacent to the interlobar fissure of the liver ma y be fat infiltration. Follow-up advised. Hypodensity also seen in the left lobe posteriorly measurin g 2.7 cm. Further evaluation advised. Otherwise, the visualized upper abdomen is normal. MUSCULOSKELETAL: Soft tissues: The superficial soft tissues are normal. Bones: Age appropriate degenerative changes of the spine. Vertebroplasty of L1. Loss of volume of L2 is also noted. IMPRESSION: 1. Bilateral pleural effusion larger on the left side. 2. Left basal atelectasis versus pneumonia. Right minimal atelectatic changes. 3. No pulmonary embolism. 4. Right hilar and subcarinal lymphadenopathy. 5. Multiple hypodensities in the liver. Further evaluation advised. Reviewed, dictated and finalized at location A.
--- NOTE | ~2024-05-02 | US_ITS ---
EXAMINATION: US venous doppler [facility] DATE: 05/02/2024 08:48 INDICATION: Left lower limb swelling. TECHNIQUE: Grayscale ultrasound images without and with compression and Doppler ultrasound images of the left lower extremity veins were obtained. COMPARISON: Ultrasound 10/15/2023 FINDINGS: The visualized portions of left common femoral vein, profunda (deep) femoral vein, femoral vein, popl iteal vein, peroneal veins, posterior tibial veins, and greater saphenous vein outflow are patent. IMPRESSION: 1. No deep venous thrombosis. Reviewed, dictated and finalized at location A.
--- NOTE | 2024-05-02 07:06 | ED.GENADULT ---
HPI - General Adult General Chief complaint: Unspecified Stated complaint: leg swelling Time Seen by Provider: 05/02/24 06:54 History of Present Illness HPI narrative: 58-year-old female presenting ED for evaluation for worsening lower extremity swelling. Patient does have history of diabetes. 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 Patient reports she was recently diagnosed with lung and liver cancer and is going to be following up with [facility]. Patient reports he has had some worsening swelling of her left lower extremity. Patient denies any current chest pain or shortness breath. Patient denies any falls or injuries. Related Data Home Medications Medication Instructions Recorded Confirmed cyclobenzaprine 10 mg tablet 10 mg PO TID PRN muscle spasms 05/19/23 03/28/24 duloxetine 60 mg capsule,delayed 60 mg PO DAILY 05/28/23 03/28/24 release Allergies Allergy/AdvReac Type Severity Reaction Status Date / Time methantheline Allergy Severe Unknown Verified 05/02/24 07:37 methylene blue Allergy Severe Unknown Verified 05/02/24 07:37 Owclkcy-BGF-IzA Reductase AdvReac Intermediate MYALGIAS Verified 05/02/24 07:37 Inhibitor propofol AdvReac Agitated Verified 05/02/24 07:37 Review of Systems Review of Systems: All systems reviewed & are unremarkable except as noted in HPI and below PMFSH Past Medical History Medical History (Updated 05/02/24 @ 09:35 by Miller Collins MD) Anxiety Charcot's joint of foot in type 2 diabetes mellitus Of the right foot Chronic obstructive pulmonary disease wears 2 L NC at night only Coronary artery disease Left anterior descending stent 01/2019. 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 Peripheral vascular disease due to secondary diabetes Presence of combination internal cardiac defibrillator (ICD) and pacemaker Serotonin syndrome Suspected sleep apnea AHI 35 on apnea link on 06/16/2022. UTI (urinary tract infection) Surgical History Surgical History (Updated 04/03/24 @ 17:50 by Sawyer Edwards MD) History of appendectomy History of section x3 History of hysterectomy Partial, ovaries retained. Due to cervical changes. History of tonsillectomy and adenoidectomy History of vertebroplasty Hx of BKA Right 11/19/20 at [facility] S/P CABG x 5 w/MVR and left atrial appendage ligation Status post cholecystectomy Stented coronary artery X1 Family History Family History Sibling Diabetes mellitus Mother Heart failure Cardiomegaly Arthritis Atrial fibrillation Family history of osteoporosis Family history of Alzheimer's disease Hypertension Cardiomyopathy Acute myocardial infarction History of heart artery stent Congestive heart failure Daughter Anxiety Father Esophagus cancer Cancer of spinal column Social History Social History Social History: The patient is . The patient had 4 children and 1 of her daughters is now. She is disabled. She is a former smoker. She denies any alcohol marijuana or illicit drugs. Primarily wheelchair-bound. Surrogate medical decision maker: Jass Arciniega, son. Code status: Full code. Smoking packs per day: 1.5 Smoking cigarettes per day: 30.0 Years smoked: 20 Smoking pack-years: 30.00 Smoking status: Former smoker Additional smoking assessment comments: quit 2019 Alcohol intake: former Substance use: current Substance u
--- NOTE | 2024-05-02 07:36 | PC.NURSE ---
[facility] contacted for IV placement after two failed attempts by RN
[2024-05-02 07:52] LABS: Influenza A QL RT-PCR Negative (Negative); Influenza B QL RT-PCR Negative (Negative); RSV RNA, RT-PCR Negative (Negative); SARS-CoV-2 RNA PCR Negative (Negative)
[2024-05-02 08:03] LABS: Basophils Absolute Auto 0.1 K/mm3 (0.0-0.1); Basophils Percent Auto 0.7 % (0.2-1.2); Eosinophils Absolute Auto 0.1 K/mm3 (0-0.3); Hematocrit 37.8 % (37.0-47.0); Hemoglobin 11.3 g/dL (12.0-15.0); Immature Granulocyte Absolute 0.04 K/mm3 (0.00-0.031); Immature Granulocyte Percent A 0.4 % (0-0.5); Immature Platelet Fraction Pct 6.7 % (0.9-11.2); Lymphocytes Absolute Auto 1.21 K/mm3 (0.9-3.2); Lymphocytes Percent Auto 13.5 % (18.3-44.2); Mean Corpuscular HGB Conc 29.9 g/dl (32-36); Mean Corpuscular Hemoglobin 22.4 pg (26-34); Monocytes Absolute Auto 0.7 K/mm3 (0.1-0.6); Monocytes Percent Auto 7.4 % (2.6-8.5); Neutrophils Absolute Auto 6.9 K/mm3 (1.3-6.7); Platelet Count Result 175 k/mm3 (150-375); Red Blood Count 5.04 M/mm3 (4.2-5.4); Red Cell Distribution Width 19.9 % (11.5-14.5)
[2024-05-02 08:14] LABS: Alanine Aminotransferase 24 U/L (6-35); Alkaline Phosphatase 115 U/L (38-126); Anion Gap 13 mmol/L (4-12); Aspartate Amino Transferase 27 U/L (14-36); Bilirubin,Total 0.8 mg/dL (0.2-1.3); Blood Urea Nitrogen 26 mg/dL (7-17); Calcium 8.5 mg/dL (8.4-10.2); Carbon Dioxide 18 mmol/L (22-30); Chloride 104 mmol/L (98-107); Estimated CRCL calculation 53 ml/min; Estimated Glomerular Filt Rate 57; Glucose 362 mg/dL (65-110); Potassium 4.2 mmol/L (3.4-5.0); Sodium 135 mmol/L (137-145)
[2024-05-02 08:23] LABS: NT Pro B Type Natriuretic Pept 6340 pg/mL (19.9-100)
[2024-05-02] MEDS: HYDROmorphone HCL INJ (*CRX) 1 MG/ML SYR 0.5 MG IV PUSH (08:23)
[2024-05-02 08:45] LABS: Anisocytosis 1+; Ovalocytes 1+; Platelet Estimate Adequate (Adequate); Poikilocytosis 1+; Schistocytes None Seen
[2024-05-02 08:53] LABS: INR 1.1; Partial Thromboplastin Time 25.3 Seconds (22.3-36.8); Prothrombin Time 14.2 Seconds (11.1-14.7)
[2024-05-02] MEDS: FUROSEMIDE INJ 40 MG/4 ML VIAL IV PUSH (09:15)
== END 2024-05-02 11:57 | disposition home or self-care (01) ==
PROVIDERS: Emergency Provider Emergency Medicine
DX: L03.116 Cellulitis of left lower limb (principal); R60.0 Localized edema; R06.02 Shortness of breath; Z20.822 Contact with and (suspected) exposure to COVID-19; C34.90 Malignant neoplasm of unspecified part of unspecified bronchus or lung; C78.7 Secondary malignant neoplasm of liver and intrahepatic bile duct; J44.9 Chronic obstructive pulmonary disease, unspecified; Z99.81 Dependence on supplemental oxygen; I25.10 Atherosclerotic heart disease of native coronary artery without angina pectoris; E78.00 Pure hypercholesterolemia, unspecified; E11.42 Type 2 diabetes mellitus with diabetic polyneuropathy; E11.51 Type 2 diabetes mellitus with diabetic peripheral angiopathy without gangrene; I73.9 Peripheral vascular disease, unspecified; F32.A Depression, unspecified; F41.9 Anxiety disorder, unspecified; Z95.810 Presence of automatic (implantable) cardiac defibrillator; Z95.1 Presence of aortocoronary bypass graft; Z95.5 Presence of coronary angioplasty implant and graft; Z86.711 Personal history of pulmonary embolism; Z87.891 Personal history of nicotine dependence; Z89.511 Acquired absence of right leg below knee; Z90.710 Acquired absence of both cervix and uterus; Z90.49 Acquired absence of other specified parts of digestive tract; Z79.4 Long term (current) use of insulin; Z79.01 Long term (current) use of anticoagulants; Z79.899 Other long term (current) drug therapy; R91.8 Other nonspecific abnormal finding of lung field
CPT/HCPCS: 36415; 71275; 80053; 83880; 85025; 85055; 85610; 85730; 87637; 93971; 96374; 96375; 99284; J1170; J1940; Q9967

== ENCOUNTER 2024-05-05 04:05 | Emergency (ER) | payer MEDICARE, MEDICAID, SELFPAY ==
--- NOTE | ~2024-05-05 | XR_ITS ---
EXAMINATION: XR chest 2V DATE: 05/05/2024 09:21 INDICATION: Shortness of breath. Chest pain. TECHNIQUE: Frontal and lateral views of the chest were obtained. COMPARISON: Chest single view 03/29/2024 FINDINGS: There are airspace opacities in left mid and lower lung zones. There is a diffuse interstit ial pattern, consistent with mild pulmonary edema. There are small pleural effusions, left worse the right. No pneumothorax. Cardiomegaly is noted. There are changes of coronary artery bypass grafting. There is a closure device at left atrial appendage. There is a left chest wall pacer with leads in th e right atrium and right ventricle. IMPRESSION: 1. Mild pulmonary edema. 2. Stable airspace opacities in left mid and lower lung zones, consistent with atelectasis versus pne umonia. 3. Small pleural effusions, left worse than right. 4. Cardiomegaly. Reviewed, dictated and finalized at location A. IMPRESSION: 1. Mild pulmonary edema. 2. Stable airspace opacities in left mid and lower lung zones, consistent with atelectasis versus pneumonia. 3. Small pleural effusions, left worse than right. 4. Cardiomegaly.
[2024-05-05 04:24] VITALS: BP 125/57; PULSE 91; RESP 20; TEMP 36.8; O2SAT 98
[2024-05-05 06:17] VITALS: BP 130/74; PULSE 96; RESP 22; TEMP 37; O2SAT 92
--- NOTE | 2024-05-05 06:19 | PC.NURSE ---
Patient states that she only gets IVs with ultrasound and will only consent to an US iv.
[2024-05-05 07:14] VITALS: BP 138/85; PULSE 97; RESP 18; O2SAT 99
[2024-05-05 07:53] LABS: Basophils Absolute Auto 0.1 K/mm3 (0.0-0.1); Basophils Percent Auto 0.7 % (0.2-1.2); Eosinophils Absolute Auto 0.1 K/mm3 (0-0.3); Eosinophils Percent Auto 0.9 % (0-4.4); Hematocrit 42.7 % (37.0-47.0); Hemoglobin 12.8 g/dL (12.0-15.0); Immature Granulocyte Absolute 0.02 K/mm3 (0.00-0.031); Immature Granulocyte Percent A 0.2 % (0-0.5); Lymphocytes Absolute Auto 1.33 K/mm3 (0.9-3.2); Lymphocytes Percent Auto 14.5 % (18.3-44.2); Mean Corpuscular Hemoglobin 22.6 pg (26-34); Mean Corpuscular Volume 75.4 fl (80-100); Mean Platelet Volume 11.2 fl (7.4-10.4); Monocytes Absolute Auto 0.5 K/mm3 (0.1-0.6); Monocytes Percent Auto 5.2 % (2.6-8.5); Neutrophils Absolute Auto 7.2 K/mm3 (1.3-6.7); Neutrophils Percent Auto 78.5 % (45.5-73.1); Platelet Count Result 203 k/mm3 (150-375); Red Blood Count 5.66 M/mm3 (4.2-5.4); Red Cell Distribution Width 19.7 % (11.5-14.5); White Blood Count 9.2 K/mm3 (4.5-10.0)
[2024-05-05 07:54] LABS: Add Urine Microscopic? YES; Appearance Urine Clear (Clear); Bacteria Urine None Seen /hpf; Bilirubin Urine Negative (Negative); Blood Urine Negative (Negative); Color Urine Yellow (Yellow); Glucose Urine UA 3+ mg/dL (Negative); Ketones Urine Negative (Negative); Leukocyte Esterase Ur Negative LEU/UL (Negative); Nitrate Urine Negative (Negative); Non Pathogenic Casts 0-2; Protein Urine 2+ mg/dL (Negative); RBC Urine 0-2 /hpf (0-2); Specific Grav Ur 1.036 (1.001-1.035); Squamous Epithelial Cell Urine None Seen /hpf (Few); Urobilinogen Urine 0.2 mg/dL (<2.0); WBC Urine 0-5 /hpf (0-3); pH Urine 5.5 (5.0-9.0)
[2024-05-05 08:12] LABS: Alanine Aminotransferase 28 U/L (6-35); Albumin Level 4.4 g/dL (3.5-5.1); Alkaline Phosphatase 146 U/L (38-126); Aspartate Amino Transferase 34 U/L (14-36); Bilirubin,Total 0.9 mg/dL (0.2-1.3); Blood Urea Nitrogen 26 mg/dL (7-17); Calcium 9.1 mg/dL (8.4-10.2); Carbon Dioxide 21 mmol/L (22-30); Chloride 97 mmol/L (98-107); Estimated CRCL calculation 53 ml/min; Estimated Glomerular Filt Rate 57; Glucose 336 mg/dL (65-110); Lipase 70 U/L (23-300); Potassium 3.6 mmol/L (3.4-5.0)
[2024-05-05 08:30] LABS: Anion Gap 8 mmol/L (4-12); Sodium 126 mmol/L (137-145)
[2024-05-05] MEDS: SODIUM CHLORIDE 0.9% IV 1,000 ML 999 ML IV CONT (08:58)
[2024-05-05] MEDS: HYDROmorphone HCL INJ (*CRX) 1 MG/ML SYR IV PUSH (08:58)
[2024-05-05 08:59] VITALS: BP 136/74; PULSE 85; RESP 20; O2SAT 100
[2024-05-05 11:18] VITALS: BP 133/75; PULSE 84; RESP 15; O2SAT 98
--- NOTE | 2024-05-05 11:23 | ED.GENADULT ---
HPI - General Adult General Chief complaint: Abdominal Pain Stated complaint: abd pain Time Seen by Provider: 05/05/24 07:58 History of Present Illness HPI narrative: 58-year-old female with extensive medical history including recently diagnosed liver and lung cancer 3 weeks prior. She is not presently undergoing any kind of chemotherapy, radiation therapy or treatment. She has not followed up with her oncologist for this. She was recently discharged from the hospital with this diagnosis and presents today requesting pain medicine. Patient immediately upon arrival presents and is asking for Dilaudid by name. On my initial evaluation of the patient her first words were ?I need Dilaudid. When inquiring further patient states that she has not sought treatment for her newly diagnosed cancer she did not like how the oncologist as treated her, but was still willing to undergo outpatient care. She states that oral medications do not help her pain and she is not interested in anything aside from IV narcotics. She has no particular complaints aside from her cancer pain. She states that the pain is always in her right side upper abdomen in right-sided lung where the cancer was diagnosed. She denies any chest pain, shortness of breath, nauseousness, vomiting, back pain, abdominal pain elsewhere, GI or symptoms, fever, chills. Patient states she has been seen multiple times and receives IV narcotics each visit. Review of the EMR shows that she went on extensive workup 3 days prior for some leg pain that was treated as a cellulitis with outpatient antibiotics for which she is compliant and states that she is taking that with improvement her symptoms. No other new acute concerns. No trauma or injuries. Related Data Home Medications Medication Instructions Recorded Confirmed cyclobenzaprine 10 mg tablet 10 mg PO TID PRN muscle spasms 05/19/23 03/28/24 duloxetine 60 mg capsule,delayed 60 mg PO DAILY 05/28/23 03/28/24 release Allergies Allergy/AdvReac Type Severity Reaction Status Date / Time methantheline Allergy Severe Unknown Verified 05/02/24 07:37 methylene blue Allergy Severe Unknown Verified 05/02/24 07:37 Zuurkjz-RGR-RpY Reductase AdvReac Intermediate MYALGIAS Verified 05/02/24 07:37 Inhibitor propofol AdvReac Agitated Verified 05/02/24 07:37 Review of Systems Review of Systems: As reviewed above in HPI [facility] Past Medical History Medical History Anxiety Charcot's joint of foot in type 2 diabetes mellitus Of the right foot Chronic obstructive pulmonary disease wears 2 L NC at night only Coronary artery disease Left anterior descending stent 01/2019. 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 Peripheral vascular disease due to secondary diabetes Presence of combination internal cardiac defibrillator (ICD) and pacemaker Serotonin syndrome Suspected sleep apnea AHI 35 on apnea link on 06/16/2022. UTI (urinary tract infection) Surgical History Surgical History History of appendectomy History of section x3 History of hysterectomy Partial, ovaries retained. Due to cervical changes. History of tonsillectomy and adenoidectomy History of vertebroplasty Hx of BKA Right 11/19/20 at [facility] S/P CABG x 5 w/MVR and left atrial appendage ligation Status post cholecystectomy Stented coronary artery X1 Family History Family History (Reviewed 05/05/24 @ 11:27 by Quoc Villarreal
[2024-05-05 14:41] VITALS: BP 129/79; PULSE 92; RESP 16; TEMP 36.5; O2SAT 97
== END 2024-05-05 15:19 | disposition home or self-care (01) ==
PROVIDERS: Emergency Medicine; Emergency Provider Student in an Organized Health Care Education/Training Program
DX: G89.3 Neoplasm related pain (acute) (chronic) (principal); C34.90 Malignant neoplasm of unspecified part of unspecified bronchus or lung; C78.7 Secondary malignant neoplasm of liver and intrahepatic bile duct; I25.10 Atherosclerotic heart disease of native coronary artery without angina pectoris; J44.9 Chronic obstructive pulmonary disease, unspecified; E78.00 Pure hypercholesterolemia, unspecified; E11.42 Type 2 diabetes mellitus with diabetic polyneuropathy; F41.8 Other specified anxiety disorders
CPT/HCPCS: 36415; 71046; 80053; 81001; 83690; 85025; 85055; 96361; 96374; 99284; J1170; J1171; J2405; J7030

== ENCOUNTER 2024-05-06 16:05 | Inpatient (IN) | payer MEDICARE, MEDICAID, SELFPAY ==
--- NOTE | ~2024-05-06 | XR_ITS ---
Portable chest x-ray Comparison: 05/06/2024 Clinical History: Shortness of breath Findings: Moderate left pleural effusion present. There is probable mild pulmonary edema pattern jos aterally. Cardiomediastinal silhouette is stable, status post probable CABG with pacemaker device. B ones and soft tissues are unremarkable. Impression: Moderate left pleural effusion and mild probable pulmonary edema. Status post CABG with pacemaker device. Reviewed, dictated and finalized at location . Impression: Moderate left pleural effusion and mild probable pulmonary edema. Status post CABG with pacemaker device.
--- NOTE | ~2024-05-06 | XR_ITS ---
EXAMINATION: XR chest 2V DATE: 05/06/2024 23:30 INDICATION: Lung cancer. TECHNIQUE: Frontal and lateral views of the chest were obtained. COMPARISON: Chest 2 views 05/05/2024 FINDINGS: There are small pleural effusions, left worse than right. There are airspace opacities in l eft mid and lower lung zones. There is a diffuse interstitial pattern, consistent mild pulmonary favio a. No pneumothorax. Cardiomegaly is noted. There are changes of coronary artery bypass grafting. Ther e is a closure device at left atrial appendage. There is a left chest wall pacer with leads in the ri ght atrium and right ventricle. There is a chronic compression fracture in the lower spine with chisholm es of vertebroplasty. IMPRESSION: 1. Mild pulmonary edema. 2. Worsened airspace opacities in left mid and lower lung zones, consistent with atelectasis versus p neumonia. 3. Worsened small pleural effusions, left worse than right. 4. Cardiomegaly. Reviewed, dictated and finalized at location A. IMPRESSION: 1. Mild pulmonary edema. 2. Worsened airspace opacities in left mid and lower lung zones, consistent wit h atelectasis versus pneumonia. 3. Worsened small pleural effusions, left worse than right. 4. Cardiomegaly.
[2024-05-06 16:08] VITALS: BP 119/58; PULSE 92; RESP 20; TEMP 36.4; O2SAT 93
[2024-05-06 18:36] VITALS: BP 129/68; PULSE 89; RESP 20; O2SAT 96
--- NOTE | 2024-05-06 18:57 | ED.ABDPAIN ---
HPI - Abdominal Pain General Chief Complaint: Recheck/Abnormal Lab/Rx Stated Complaint: abd pain Time Seen by Provider: 05/06/24 18:46 Source: patient Mode of arrival: EMS Limitations: no limitations History of Present Illness HPI narrative: Patient is a 58-year-old female who presents to the ER with upper right abdominal pain. She was seen in the ER yesterday stay for pain management after recent diagnosis with liver cancer. Patient reports yesterday the Dilaudid helped treat her pain. She has an extensive medical history. 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 Patient in agreement with plan of care. Related Data Home Medications Medication Instructions Recorded Confirmed cyclobenzaprine 10 mg tablet 10 mg PO TID PRN muscle spasms 05/19/23 05/07/24 duloxetine 60 mg capsule,delayed 60 mg PO DAILY 05/28/23 05/07/24 release Allergies Allergy/AdvReac Type Severity Reaction Status Date / Time methantheline Allergy Severe Unknown Verified 05/06/24 16:09 methylene blue Allergy Severe Unknown Verified 05/06/24 16:09 Oxbvlxf-SHA-PfC Reductase AdvReac Intermediate MYALGIAS Verified 05/06/24 16:09 Inhibitor propofol AdvReac Agitated Verified 05/06/24 16:09 Review of Systems Review of Systems: All systems reviewed & are unremarkable except as noted in HPI and below PMFSH Past Medical History Medical History Anxiety Charcot's joint of foot in type 2 diabetes mellitus Of the right foot Chronic obstructive pulmonary disease wears 2 L NC at night only Coronary artery disease Left anterior descending stent 01/2019. 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 Peripheral vascular disease due to secondary diabetes Presence of combination internal cardiac defibrillator (ICD) and pacemaker Serotonin syndrome Suspected sleep apnea AHI 35 on apnea link on 06/16/2022. UTI (urinary tract infection) Surgical History Surgical History History of appendectomy History of section x3 History of hysterectomy Partial, ovaries retained. Due to cervical changes. History of tonsillectomy and adenoidectomy History of vertebroplasty Hx of BKA Right 11/19/20 at [facility] S/P CABG x 5 w/MVR and left atrial appendage ligation Status post cholecystectomy Stented coronary artery X1 Family History Family History Sibling Diabetes mellitus Mother Heart failure Cardiomegaly Arthritis Atrial fibrillation Family history of osteoporosis Family history of Alzheimer's disease Hypertension Cardiomyopathy Acute myocardial infarction History of heart artery stent Congestive heart failure Daughter Anxiety Father Esophagus cancer Cancer of spinal column Social History Social History Social History: The patient is . The patient had 4 children and 1 of her daughters is now. She is disabled. She is a former smoker. She denies any alcohol marijuana or illicit drugs. Primarily wheelchair-bound. Surrogate medical decision maker: Jass Arciniega, son. Code status: Full code. Smoking packs per day: 1 Smoking cigarettes per day: 20.0 Years smoked: 20 Smoking pack-years: 20.00 Smoking status: Former smoker Smoking end date: 08/16/06 Additional smoking assessment comments: quit 2019 Alcohol intake: former Substance use: current [place]
[2024-05-06] MEDS: HYDROmorphone HCL INJ (*CRX) 1 MG/ML SYR 0.5 MG IV PUSH ×2 (19:34→21:36)
[2024-05-06] MEDS: SODIUM CHLORIDE 0.9% IV 1,000 ML 999 ML IV CONT (19:34)
[2024-05-06 20:12] VITALS: BP 114/96; PULSE 98; RESP 18; O2SAT 94
[2024-05-06 21:38] VITALS: BP 127/56; PULSE 86; RESP 20; O2SAT 97
--- NOTE | 2024-05-06 22:57 | PC.NURSE ---
3L applied to pt Sp02 currently 97%. Sp02 88% when sleeping, pt states she wears 2L at home when sleeping.
[2024-05-06 22:58] VITALS: BP 104/69; PULSE 76; RESP 20; O2SAT 98
[2024-05-06 23:58] LABS: Lactic Acid Reflex 1.6 mmol/L (0.7-2.0)
[2024-05-06 23:59] LABS: Alanine Aminotransferase 24 U/L (6-35); Albumin Level 3.9 g/dL (3.5-5.1); Alkaline Phosphatase 121 U/L (38-126); Anion Gap 11 mmol/L (4-12); Aspartate Amino Transferase 29 U/L (14-36); Bilirubin,Total 0.9 mg/dL (0.2-1.3); Blood Urea Nitrogen 23 mg/dL (7-17); Calcium 8.3 mg/dL (8.4-10.2); Carbon Dioxide 18 mmol/L (22-30); Chloride 104 mmol/L (98-107); Estimated Glomerular Filt Rate > 60; Glucose 272 mg/dL (65-110); Lipase 51 U/L (23-300); Potassium 3.7 mmol/L (3.4-5.0); Sodium 133 mmol/L (137-145)
[2024-05-07] VITALS (9 sets, daily range): BP systolic 115–139; BP diastolic 54–90; PULSE 82–99; RESP 16–21; TEMP 36.2–36.7; O2SAT 88–100; BMI 32.1
[2024-05-07 00:10] LABS: Troponin I 0.018 ng/mL (0.000-0.034)
[2024-05-07 00:20] LABS: Basophils Absolute Auto 0.1 K/mm3 (0.0-0.1); Basophils Percent Auto 0.7 % (0.2-1.2); Eosinophils Absolute Auto 0.1 K/mm3 (0-0.3); Eosinophils Percent Auto 1.1 % (0-4.4); Hematocrit 36.4 % (37.0-47.0); INR 1.1; Immature Granulocyte Absolute 0.03 K/mm3 (0.00-0.031); Immature Granulocyte Percent A 0.4 % (0-0.5); Immature Platelet Fraction Pct 6.6 % (0.9-11.2); Lymphocytes Absolute Auto 1.53 K/mm3 (0.9-3.2); Lymphocytes Percent Auto 18.5 % (18.3-44.2); Mean Corpuscular HGB Conc 30.2 g/dl (32-36); Mean Corpuscular Hemoglobin 22.7 pg (26-34); Mean Corpuscular Volume 75.1 fl (80-100); Monocytes Absolute Auto 0.6 K/mm3 (0.1-0.6); Monocytes Percent Auto 6.8 % (2.6-8.5); Neutrophils Percent Auto 72.5 % (45.5-73.1); Platelet Count Result 186 k/mm3 (150-375); Prothrombin Time 14.5 Seconds (11.1-14.7); Red Blood Count 4.85 M/mm3 (4.2-5.4); Red Cell Distribution Width 19.4 % (11.5-14.5); White Blood Count 8.3 K/mm3 (4.5-10.0)
[2024-05-07 00:21] LABS: Partial Thromboplastin Time 26.8 Seconds (22.3-36.8)
--- NOTE | 2024-05-07 01:18 | PM.IMHP ---
H&P: HPI History of Present Illness Date/Time: 05/07/24 01:18 Chief Complaint: pain Narrative: THIS IS A 58-YEAR-OLD FEMALE RECENTLY DIAGNOSED WITH CANCER, PAST MEDICAL HISTORY SIGNIFICANT FOR DIABETES, RIGHT BKA, OSTEOPOROSIS, VERTEBRAL FRACTURE, FORMER SMOKER, INSULIN-DEPENDENT DIABETES MELLITUS [place] CORDS DISEASE LEFT LOWER EXTREMITY AICD IN PLACE. PATIENT PRESENTS TO THE EMERGENCY ROOM DUE TO INTRACTABLE PAIN OF RIGHT UPPER QUADRANT AND CHEST UNABLE TO CARE FOR SELF AT HOME. patient admitted for further evaluation management and treatment. EXAMINATION: XR chest 2V DATE: 05/05/2024 09:21 INDICATION: Shortness of breath. Chest pain. TECHNIQUE: Frontal and lateral views of the chest were obtained. COMPARISON: Chest single view 03/29/2024 FINDINGS: There are airspace opacities in left mid and lower lung zones. There is a diffuse interstitial pattern, consistent with mild pulmonary edema. There are small pleural effusions, left worse the right. No pneumothorax. Cardiomegaly is noted. There are changes of coronary artery bypass grafting. There is a closure device at left atrial appendage. There is a left chest wall pacer with leads in the right atrium and right ventricle. IMPRESSION: 1. Mild pulmonary edema. 2. Stable airspace opacities in left mid and lower lung zones, consistent with atelectasis versus pneumonia. 3. Small pleural effusions, left worse than right. 4. Cardiomegaly. Review of Systems Review of Systems: RIGHT UPPER QUADRANT PAIN, CHEST PAIN PMFSH Past Medical History Medical History Anxiety Charcot's joint of foot in type 2 diabetes mellitus Of the right foot Chronic obstructive pulmonary disease wears 2 L NC at night only Coronary artery disease Left anterior descending stent 01/2019. 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 Peripheral vascular disease due to secondary diabetes Presence of combination internal cardiac defibrillator (ICD) and pacemaker Serotonin syndrome Suspected sleep apnea AHI 35 on apnea link on 06/16/2022. UTI (urinary tract infection) Surgical History Surgical History History of appendectomy History of section x3 History of hysterectomy Partial, ovaries retained. Due to cervical changes. History of tonsillectomy and adenoidectomy History of vertebroplasty Hx of BKA Right 11/19/20 at [facility] S/P CABG x 5 w/MVR and left atrial appendage ligation Status post cholecystectomy Stented coronary artery X1 Family History Family History Sibling Diabetes mellitus Mother Heart failure Cardiomegaly Arthritis Atrial fibrillation Family history of osteoporosis Family history of Alzheimer's disease Hypertension Cardiomyopathy Acute myocardial infarction History of heart artery stent Congestive heart failure Daughter Anxiety Father Esophagus cancer Cancer of spinal column Social History Social History Social History: The patient is . The patient had 4 children and 1 of her daughters is now. She is disabled. She is a former smoker. She denies any alcohol marijuana or illicit drugs. Primarily wheelchair-bound. Surrogate medical decision maker: Jass Arciniega, son. Code status: Full code. Smoking packs per day: 1 Smoking cigarettes per day: 20.0 Years smoked: 20 Smoking pack-years: 20
[2024-05-07 01:25] LABS: Add Urine Microscopic? YES; Appearance Urine Clear (Clear); Bacteria Urine None Seen /hpf; Bilirubin Urine Negative (Negative); Blood Urine Negative (Negative); Color Urine Yellow (Yellow); Glucose Urine UA 3+ mg/dL (Negative); Ketones Urine Negative (Negative); Leukocyte Esterase Ur Negative LEU/UL (Negative); Need Manual Microscopic Reviewed; Nitrate Urine Negative (Negative); Non Pathogenic Casts 0-2; Protein Urine 3+ mg/dL (Negative); RBC Urine 0-2 /hpf (0-2); Specific Grav Ur 1.035 (1.001-1.035); Squamous Epithelial Cell Urine None Seen /hpf (Few); Urobilinogen Urine 0.2 mg/dL (<2.0); pH Urine 5.5 (5.0-9.0)
[2024-05-07] MEDS: SODIUM CHLORIDE 0.9% IV 1,000 ML 125 ML IV CONT (01:30)
[2024-05-07] MEDS: HYDROmorphone HCL INJ (*CRX) 1 MG/ML SYR 0.5 MG IV PUSH (01:31)
[2024-05-07 05:11] LABS: NT Pro B Type Natriuretic Pept 6500 pg/mL (19.9-100)
[2024-05-07] MEDS: AZITHROMYCIN 500 MG/NS 250 ML 500 MG/250 ML BAG 250 MG IVPB (05:25)
[2024-05-07] MEDS: cefTRIAXone 2 GM/NS 100 ML 2 GM/100 ML BAG IVPB (05:25)
[2024-05-07] MEDS: HYDROmorphone HCL INJ (*CRX) 1 MG/ML SYR IV PUSH ×3 (06:08→19:49)
--- NOTE | 2024-05-07 06:19 | ADMGEN ---
0230 This patient, Tiff Vaughn, was admitted to 3 [facility] Surg Room 312-01. Patient/family oriented to hospital policies and general routines including ID bracelet, bed and alarms, visiting hours, pain management, procedures, bathroom and other care routines, personal items, smoking policy, room service/diet, and visiting hours. Information on how to activate the Rapid Response Team has been discussed. Patient/Family are encouraged to report perceived risks to care and to ask questions if they do not understand what they are told or what they should do.
--- NOTE | 2024-05-07 06:19 | PC.NURSE ---
Patient having Nausea and dry heaves when this RN was in room, offered medication to help but patient is refusing at this time. Attempted to educvate patient and still declines the medication. patient placed in comfortable position and given a cold towel.
[2024-05-07] MEDS: UMECLIDINIUM/VILANTEROL 62.5-25 MCG ELLIPTA 1 PUFF INHALATION (07:32)
--- NOTE | 2024-05-07 07:32 | PCRCNOTE ---
RT checked patient's pulse ox prior to inhaler given. Pulse ox was 88% on room air. Patient would not allow RT to put nasal cannula back in nose. RT had to encourage patient to take her inhaler which she ended up doing but then would not rinse her mouth after administration of inhaler.
--- NOTE | 2024-05-07 10:05 | PC.NURSE ---
patient experiencing nausea/dry heaving this AM; this RN offered zofran to pt to help ease nausea so she could eat breakfast, pt refused to receive zofran, reports that it makes her vomit; pt also has scheduled Novolog 10 units with her breakfast this AM, refused breakfast @0900.
[2024-05-07 10:33] LABS: Glucose Point of Care 295 mg/dl (65-105)
[2024-05-07] MEDS: INSULIN ASPART (*BKC) 100 UNITS/ML SUB-Q ×2 (10:50→12:25)
--- NOTE | 2024-05-07 10:57 | PC.NURSE ---
notified provider of pt experiencing N/V this AM, pt refusing zofran when offered, reports it does not work for her; received new order for compazine, offered to pt and she refused compazine as well. Pt also continuously pulling off nasal cannula this AM.
[2024-05-07 12:01] LABS: Glucose Point of Care 260 mg/dl (65-105)
[2024-05-07] MEDS: INSULIN GLARGINE (*BKC) 100 UNITS/ML 8 UNITS SUB-Q (12:24)
--- NOTE | 2024-05-07 12:55 | PM.IMPN ---
Progress Note: A&P Assessment and Plan (1) Abdominal pain: Code(s): R10.9 - Unspecified abdominal pain Status: Acute (2) Elevated liver enzymes: Code(s): R74.8 - Abnormal levels of other serum enzymes Status: Acute (3) Lung cancer: Code(s): C34.90 - Malignant neoplasm of unspecified part of unspecified bronchus or lung Status: Acute (4) Cirrhosis: Code(s): K74.60 - Unspecified cirrhosis of liver Status: Acute (5) Compression fracture of L2 lumbar vertebra: Qualifiers: Encounter type: initial encounter Qualified Code(s): S32.020A - Wedge compression fracture of second lumbar vertebra, initial encounter for closed fracture Code(s): S32.020A - Wedge compression fracture of second lumbar vertebra, initial encounter for closed fracture Status: Chronic (6) Physical deconditioning: Code(s): R53.81 - Other malaise Status: Acute (7) Adult failure to thrive: Code(s): R62.7 - Adult failure to thrive Status: Acute (8) Ischemic cardiomyopathy: Code(s): I25.5 - Ischemic cardiomyopathy Status: Acute (9) Chronic obstructive pulmonary disease: Qualifiers: COPD type: unspecified COPD Qualified Code(s): J44.9 - Chronic obstructive pulmonary disease, unspecified Code(s): J44.9 - Chronic obstructive pulmonary disease, unspecified Status: Chronic (10) Type 2 diabetes mellitus with hyperglycemia, with long-term current use of insulin: Code(s): E11.65 - Type 2 diabetes mellitus with hyperglycemia; Z79.4 - terminal make up operator (current) use of insulin Status: Chronic Plan This is a 58-year-old female who presents to the right upper quadrant recently diagnosed liver cancer for patient. Was recently in the ER on 05/05/2024 as well with similar complaint. Recently diagnosed cancer 3 weeks ago. Not currently undergoing any chemotherapy or radiation. Followed up with oncologist has not happened yet. She has been admitted for pain management. Pain 3.3 cm mass in the left hepatic lobe that is new from March 2022. Associated right small and moderate left pleural effusion pulmonary edema. Sedative effect from Dilaudid IV. Chest x-ray showed worsening opacities started on ceftriaxone azithromycin. Saw hypoxic needing oxygen supplementation. Effusion looks like related to CHF exacerbation. Will give a dose of Lasix Recently diagnosed primary bronchogenic carcinoma with hilar and mediastinal lymphadenopathy following up with oncologist basement planned start chemotherapy. Consult oncology Poorly differentiated carcinoma of liver biopsy done on March 29, 2024. Right below-knee amputation ulcer Charcot foot COPD wears 2 L nasal cannula at night Congestive heart failure chronic diastolic/systolic EF 20-25% Coronary artery disease with CABG and stent 2018 lad line anxiety depression Type 2 diabetes on insulin Diabetic. Peripheral neuropathy Hyperlipidemia Hypothyroidism History of L1 vertebral fracture History of pelvic fracture Peripheral artery disease with stenting of both external iliac arteries in 2019 stenting of the left common iliac vein for presumed syndrome Status post cardiac ICD pacemaker placement Suspected sleep apnea DVT prophylaxis on Eliquis Subjective Date/time seen: 05/07/24 12:55 Interval history: No overnight events. Complains of pain in abdomen. Reports some nausea. No vomiting. Remains afebrile. Review of Systems Review of Systems: All systems reviewed & are unremarkable except as noted in HPI and below Exam Narrative: GENERAL: Chronically-ill, non-toxic, in mild acute distress d/t pain. NECK: Supple. No adenopathy, no masses. RESPIRATORY: Airway patent, respirations nonlabored. Clear to auscultation bilaterally, no rales, rhonchi, wheezing. CARDIOVASCULAR: Regular rate and rhythm without murmurs, rubs, or gallops. Peripheral pulses 2+ and equal bilaterally. ABDOMINAL
[2024-05-07 16:12] LABS: Glucose Point of Care 125 mg/dl (65-105)
[2024-05-07] MEDS: FUROSEMIDE INJ 40 MG/4 ML VIAL IV PUSH (17:30)
[2024-05-07] MEDS: INSULIN ASPART (*BKC) 100 UNITS/ML 10 UNITS SUB-Q (17:33)
[2024-05-07] MEDS: PREGABALIN (*CRX) 50 MG CAPSULE PO (19:46)
[2024-05-07] MEDS: APIXABAN 5 MG TABLET PO (19:46)
[2024-05-07 20:17] LABS: Glucose Point of Care 135 mg/dl (65-105)
[2024-05-07] MEDS: LORazepam INJ (*CRX) 2 MG/ML VIAL IV PUSH (22:32)
[2024-05-08] VITALS (11 sets, daily range): BP systolic 93–111; BP diastolic 62–76; PULSE 87–141; RESP 13–18; TEMP 35.8–36.4; O2SAT 92–94
[2024-05-08] MEDS: cefTRIAXone 2 GM/NS 100 ML 2 GM/100 ML BAG IVPB (03:30)
[2024-05-08] MEDS: AZITHROMYCIN 500 MG/NS 250 ML 500 MG/250 ML BAG 250 MG IVPB (03:30)
--- NOTE | 2024-05-08 04:44 | PC.NURSE ---
Addendum entered by Renetta Elliott RN 05/08/24 05:04: Patient denies allergy to Dilaudid , states I have taken it many times in hospitals and nursing homes and it has never done this . Original Note: Patient given Dilaudid at 1951, at 2004 patient called to say she had thrown up all over her bed, herself and the floor. Emesis aprx 200 mls and food. Approximately 15 minutes after being cleaned and placed on new bedding Patient complaining of severe itching over back, chest and stomach. Patient continues to call division sales manager light to report itching. Applied lotion and helped patient to rub back. No redness or rash noted. Dr. George made aware.
[2024-05-08] MEDS: HYDROmorphone HCL INJ (*CRX) 1 MG/ML SYR IV PUSH (05:11)
[2024-05-08] MEDS: LEVOTHYROXINE SODIUM 50 MCG TABLET PO (05:12)
[2024-05-08 06:51] LABS: Basophils Absolute Auto 0.1 K/mm3 (0.0-0.1); Basophils Percent Auto 0.8 % (0.2-1.2); Eosinophils Absolute Auto 0.1 K/mm3 (0-0.3); Eosinophils Percent Auto 1.4 % (0-4.4); Hematocrit 38.9 % (37.0-47.0); Hemoglobin 11.6 g/dL (12.0-15.0); Immature Granulocyte Absolute 0.03 K/mm3 (0.00-0.031); Immature Granulocyte Percent A 0.4 % (0-0.5); Lymphocytes Absolute Auto 1.62 K/mm3 (0.9-3.2); Mean Corpuscular HGB Conc 29.8 g/dl (32-36); Mean Corpuscular Hemoglobin 22.8 pg (26-34); Mean Corpuscular Volume 76.6 fl (80-100); Mean Platelet Volume 11.3 fl (7.4-10.4); Monocytes Absolute Auto 0.6 K/mm3 (0.1-0.6); Neutrophils Absolute Auto 6.1 K/mm3 (1.3-6.7); Neutrophils Percent Auto 71.4 % (45.5-73.1); Platelet Count Result 209 k/mm3 (150-375); Red Blood Count 5.08 M/mm3 (4.2-5.4); Red Cell Distribution Width 19.9 % (11.5-14.5); White Blood Count 8.5 K/mm3 (4.5-10.0)
[2024-05-08 07:06] LABS: Alanine Aminotransferase 26 U/L (6-35); Albumin Level 3.6 g/dL (3.5-5.1); Alkaline Phosphatase 131 U/L (38-126); Anion Gap 11 mmol/L (4-12); Aspartate Amino Transferase 45 U/L (14-36); Bilirubin,Total 0.9 mg/dL (0.2-1.3); Blood Urea Nitrogen 23 mg/dL (7-17); Calcium 8.4 mg/dL (8.4-10.2); Carbon Dioxide 18 mmol/L (22-30); Chloride 106 mmol/L (98-107); Estimated CRCL calculation 58 ml/min; Estimated Glomerular Filt Rate 57; Glucose 126 mg/dL (65-110); Magnesium 1.9 mg/dL (1.6-2.3); Potassium 3.6 mmol/L (3.4-5.0); Sodium 135 mmol/L (137-145)
[2024-05-08 07:45] LABS: Hypochromasia 1+; Platelet Estimate Adequate (Adequate)
[2024-05-08 07:46] LABS: Anisocytosis 2+; Microcytosis 1+ (NORMAL); Schistocytes None Seen
[2024-05-08 07:49] LABS: Glucose Point of Care 129 mg/dl (65-105)
--- NOTE | 2024-05-08 08:04 | PM.IMPN ---
Progress Note: A&P Assessment and Plan (1) Abdominal pain: Code(s): R10.9 - Unspecified abdominal pain Status: Acute (2) Elevated liver enzymes: Code(s): R74.8 - Abnormal levels of other serum enzymes Status: Acute (3) Lung cancer: Code(s): C34.90 - Malignant neoplasm of unspecified part of unspecified bronchus or lung Status: Acute (4) Cirrhosis: Code(s): K74.60 - Unspecified cirrhosis of liver Status: Acute (5) Compression fracture of L2 lumbar vertebra: Qualifiers: Encounter type: initial encounter Qualified Code(s): S32.020A - Wedge compression fracture of second lumbar vertebra, initial encounter for closed fracture Code(s): S32.020A - Wedge compression fracture of second lumbar vertebra, initial encounter for closed fracture Status: Chronic (6) Physical deconditioning: Code(s): R53.81 - Other malaise Status: Acute (7) Adult failure to thrive: Code(s): R62.7 - Adult failure to thrive Status: Acute (8) Ischemic cardiomyopathy: Code(s): I25.5 - Ischemic cardiomyopathy Status: Acute (9) Chronic obstructive pulmonary disease: Qualifiers: COPD type: unspecified COPD Qualified Code(s): J44.9 - Chronic obstructive pulmonary disease, unspecified Code(s): J44.9 - Chronic obstructive pulmonary disease, unspecified Status: Chronic (10) Type 2 diabetes mellitus with hyperglycemia, with long-term current use of insulin: Code(s): E11.65 - Type 2 diabetes mellitus with hyperglycemia; Z79.4 - termite treater (current) use of insulin Status: Chronic Plan This is a 58-year-old female who presents to the right upper quadrant recently diagnosed liver cancer for patient. Was recently in the ER on 05/05/2024 as well with similar complaint. Recently diagnosed cancer 3 weeks ago. Not currently undergoing any chemotherapy or radiation. Followed up with oncologist has not happened yet. She has been admitted for pain management. Pain 3.3 cm mass in the left hepatic lobe that is new from March 2022. Associated right small and moderate left pleural effusion pulmonary edema. Sedative effect from Dilaudid IV. Chest x-ray showed worsening opacities started on ceftriaxone azithromycin. Saw hypoxic needing oxygen supplementation. Effusion looks like related to CHF exacerbation. Continue IV Lasix. For pain control add hydromorphone oral Recently diagnosed primary bronchogenic carcinoma with hilar and mediastinal lymphadenopathy following up with oncologist basement planned start chemotherapy. Consult oncology Poorly differentiated carcinoma of liver biopsy done on March 29, 2024. Right below-knee amputation ulcer Charcot foot COPD wears 2 L nasal cannula at night Congestive heart failure chronic diastolic/systolic EF 20-25% Coronary artery disease with CABG and stent 2018 lad line anxiety depression Type 2 diabetes on insulin Diabetic. Peripheral neuropathy Hyperlipidemia Hypothyroidism History of L1 vertebral fracture History of pelvic fracture Peripheral artery disease with stenting of both external iliac arteries in 2019 stenting of the left common iliac vein for presumed syndrome Status post cardiac ICD pacemaker placement Suspected sleep apnea DVT prophylaxis on Eliquis Subjective Date/time seen: 05/08/24 08:04 Interval history: No overnight events. Reports hydrocodone causes some problem to her. Only dilaudid works. Intermittent cough denies any shortness of breath. Review of Systems Review of Systems: All systems reviewed & are unremarkable except as noted in HPI and below Exam Narrative: GENERAL: Chronically-ill, non-toxic, in mild acute distress d/t pain. NECK: Supple. No adenopathy, no masses. RESPIRATORY: Airway patent, respirations nonlabored. Clear to auscultation bilaterally, no rales, rhonchi, wheezing. CARDIOVASCULAR: Regular rate and rhythm without murmurs
[2024-05-08] MEDS: PREGABALIN (*CRX) 50 MG CAPSULE PO ×2 (08:36→20:05)
[2024-05-08] MEDS: APIXABAN 5 MG TABLET PO ×2 (08:36→20:05)
[2024-05-08] MEDS: CLOPIDOGREL BISULFATE 75 MG TABLET PO (08:36)
[2024-05-08] MEDS: FUROSEMIDE INJ 40 MG/4 ML VIAL IV PUSH (08:37)
[2024-05-08] MEDS: DULoxetine HCL 60 MG CAPSULE.DR PO (08:38)
[2024-05-08] MEDS: ALPRAZolam (*CRX) 0.5 MG TABLET PO (08:44)
--- NOTE | 2024-05-08 10:21 | PC.NURSE ---
On 05/08/24, the student, [Ashwin Anand], provided care and completed [facility] documentation on this patient. I have reviewed the student's documentation and agree with the findings.
--- NOTE | 2024-05-08 11:44 | PCCDE ---
Addendum entered by Opal Lin RD, LDN, CDE 05/08/24 15:09: 3:00 pm re-attempted to see patient this afternoon, unsuccessful. Sleeping. Original Note: 05/08/24 11:30 am Stopped in to see patient admitted pain management due to DM Screen indicating trouble getting her supplies. Upon entering the room patient woke up however she went to sleep immediately after introduction. No relevant conversation. Received pain med earlier this am. FJ
[2024-05-08 11:49] LABS: Glucose Point of Care 127 mg/dl (65-105)
--- NOTE | 2024-05-08 12:30 | PC.NURSE ---
On 05/08/24, the student, [Margaret Owens], provided care and completed [facility] documentation on this patient. I have reviewed the student's documentation and agree with the findings.
--- NOTE | 2024-05-08 14:53 | ECG_ITS ---
Test Date: 2024-05-08 15:33:13 Measurements Intervals Pimento Rate: 146 P: -56 AR: 158 QRS: -46 QRSD: 103 T: 116 QT: 321 QTc: 501 Interpretive Statements ATRIAL FLUTTER/TACHYCARDIA WITH RAPID VENTRICLAR RESPONSE LEFT AXIS DEVIATION POOR R WAVE PROGRESSION CONSIDER INFERIOR INFARCT, AGE INDETERMINATE BORDERLINE ST-T WAVE ABNORMALITY- HIGH LATERAL LEADS ABNORMAL ECG Compared to ECG 03/28/2024 02:54:11 ATRIAL FLUTTER/TACHYCARDIA NOW PRESENT Electronically Signed On 05-08-2024 18:42:48 CDT by Mike Bernardo D.O.
[2024-05-08] MEDS: METOPROLOL TARTRATE INJ 5 MG/5 ML VIAL IV PUSH (15:35)
[2024-05-08] MEDS: carvediloL 3.125 MG TABLET PO ×2 (16:38→20:05)
[2024-05-08 16:41] LABS: Glucose Point of Care 186 mg/dl (65-105)
[2024-05-08] MEDS: DIGOXIN INJ 250 MCG/ML 2 ML AMP (*BKC) 125 MCG IV PUSH (19:07)
[2024-05-08 20:20] LABS: Glucose Point of Care 170 mg/dl (65-105)
[2024-05-09] VITALS (12 sets, daily range): BP systolic 102–113; BP diastolic 54–58; PULSE 60–125; RESP 16–20; TEMP 36.3–37.1; O2SAT 92–98
[2024-05-09] MEDS: HYDROmorphone HCL INJ (*CRX) 1 MG/ML SYR 0.5 MG IV PUSH ×2 (01:23→07:31)
[2024-05-09] MEDS: LEVOTHYROXINE SODIUM 50 MCG TABLET PO (06:35)
[2024-05-09 07:10] LABS: Basophils Absolute Auto 0.1 K/mm3 (0.0-0.1); Basophils Percent Auto 0.8 % (0.2-1.2); Eosinophils Absolute Auto 0.1 K/mm3 (0-0.3); Eosinophils Percent Auto 1.1 % (0-4.4); Hematocrit 37.4 % (37.0-47.0); Hemoglobin 10.8 g/dL (12.0-15.0); Immature Granulocyte Absolute 0.03 K/mm3 (0.00-0.031); Immature Granulocyte Percent A 0.4 % (0-0.5); Immature Platelet Fraction Pct 8.2 % (0.9-11.2); Lymphocytes Absolute Auto 1.14 K/mm3 (0.9-3.2); Lymphocytes Percent Auto 15.6 % (18.3-44.2); Mean Corpuscular HGB Conc 28.9 g/dl (32-36); Mean Corpuscular Hemoglobin 22.1 pg (26-34); Mean Corpuscular Volume 76.6 fl (80-100); Mean Platelet Volume 11.2 fl (7.4-10.4); Monocytes Absolute Auto 0.5 K/mm3 (0.1-0.6); Monocytes Percent Auto 7.3 % (2.6-8.5); Neutrophils Absolute Auto 5.5 K/mm3 (1.3-6.7); Neutrophils Percent Auto 74.8 % (45.5-73.1); Platelet Count Result 191 k/mm3 (150-375); Red Blood Count 4.88 M/mm3 (4.2-5.4); Red Cell Distribution Width 19.6 % (11.5-14.5); White Blood Count 7.3 K/mm3 (4.5-10.0)
[2024-05-09] MEDS: AZITHROMYCIN 500 MG/NS 250 ML 500 MG/250 ML BAG 250 MG IVPB (07:19)
[2024-05-09] MEDS: cefTRIAXone 2 GM/NS 100 ML 2 GM/100 ML BAG IVPB (07:19)
[2024-05-09] MEDS: UMECLIDINIUM/VILANTEROL 62.5-25 MCG ELLIPTA 1 PUFF INHALATION (07:21)
[2024-05-09 07:23] LABS: Alanine Aminotransferase 32 U/L (6-35); Albumin Level 3.5 g/dL (3.5-5.1); Alkaline Phosphatase 140 U/L (38-126); Anion Gap 13 mmol/L (4-12); Aspartate Amino Transferase 43 U/L (14-36); Blood Urea Nitrogen 32 mg/dL (7-17); Calcium 8.3 mg/dL (8.4-10.2); Carbon Dioxide 20 mmol/L (22-30); Chloride 103 mmol/L (98-107); Estimated CRCL calculation 53 ml/min; Estimated Glomerular Filt Rate 51; Glucose 129 mg/dL (65-110); Magnesium 1.9 mg/dL (1.6-2.3); Potassium 3.8 mmol/L (3.4-5.0); Sodium 136 mmol/L (137-145)
[2024-05-09 07:53] LABS: Glucose Point of Care 123 mg/dl (65-105)
[2024-05-09 08:07] LABS: Anisocytosis 2+; Microcytosis 1+ (NORMAL); Platelet Estimate Adequate (Adequate); Schistocytes None Seen
[2024-05-09] MEDS: PROCHLORPERAZINE EDISYLATE 10 MG/2 ML VIAL IV PUSH (08:30)
[2024-05-09] MEDS: FUROSEMIDE INJ 40 MG/4 ML VIAL IV PUSH (08:30)
[2024-05-09] MEDS: DULoxetine HCL 30 MG CAPSULE.DR 90 MG PO (08:30)
[2024-05-09] MEDS: carvediloL 3.125 MG TABLET PO ×2 (08:31→21:02)
[2024-05-09] MEDS: ALPRAZolam (*CRX) 0.5 MG TABLET PO (08:31)
[2024-05-09] MEDS: CLOPIDOGREL BISULFATE 75 MG TABLET PO (08:31)
[2024-05-09] MEDS: PREGABALIN (*CRX) 50 MG CAPSULE PO ×2 (08:31→21:02)
[2024-05-09] MEDS: APIXABAN 5 MG TABLET PO ×2 (08:31→21:02)
[2024-05-09] MEDS: HYDROmorphone HCL (*CRX) 2 MG TABLET PO (08:43)
[2024-05-09 11:44] LABS: Glucose Point of Care 151 mg/dl (65-105)
--- NOTE | 2024-05-09 13:25 | PM.IMPN ---
Progress Note: A&P Assessment and Plan (1) Abdominal pain: Code(s): R10.9 - Unspecified abdominal pain Status: Acute (2) Elevated liver enzymes: Code(s): R74.8 - Abnormal levels of other serum enzymes Status: Acute (3) Lung cancer: Code(s): C34.90 - Malignant neoplasm of unspecified part of unspecified bronchus or lung Status: Acute (4) Cirrhosis: Code(s): K74.60 - Unspecified cirrhosis of liver Status: Acute (5) Compression fracture of L2 lumbar vertebra: Qualifiers: Encounter type: initial encounter Qualified Code(s): S32.020A - Wedge compression fracture of second lumbar vertebra, initial encounter for closed fracture Code(s): S32.020A - Wedge compression fracture of second lumbar vertebra, initial encounter for closed fracture Status: Chronic (6) Physical deconditioning: Code(s): R53.81 - Other malaise Status: Acute (7) Adult failure to thrive: Code(s): R62.7 - Adult failure to thrive Status: Acute (8) Ischemic cardiomyopathy: Code(s): I25.5 - Ischemic cardiomyopathy Status: Acute (9) Chronic obstructive pulmonary disease: Qualifiers: COPD type: unspecified COPD Qualified Code(s): J44.9 - Chronic obstructive pulmonary disease, unspecified Code(s): J44.9 - Chronic obstructive pulmonary disease, unspecified Status: Chronic (10) Type 2 diabetes mellitus with hyperglycemia, with long-term current use of insulin: Code(s): E11.65 - Type 2 diabetes mellitus with hyperglycemia; Z79.4 - intermediate teacher (current) use of insulin Status: Chronic Plan This is a 58-year-old female who presents to the right upper quadrant recently diagnosed liver cancer for patient. Was recently in the ER on 05/05/2024 as well with similar complaint. Recently diagnosed cancer 3 weeks ago. Not currently undergoing any chemotherapy or radiation. Followed up with oncologist has not happened yet. She has been admitted for pain management. Pain 3.3 cm mass in the left hepatic lobe that is new from March 2022. Associated right small and moderate left pleural effusion pulmonary edema. Sedative effect from Dilaudid IV. Chest x-ray showed worsening opacities started on ceftriaxone azithromycin. She was hypoxic needing oxygen supplementation. Effusion looks like related to CHF exacerbation. Continue IV Lasix. For pain control add hydromorphone oral. Will avoid IV Dilaudid as this is making somnolent Recently diagnosed primary bronchogenic carcinoma with hilar and mediastinal lymphadenopathy following up with oncologist basement planned start chemotherapy. Consult oncology Poorly differentiated carcinoma of liver biopsy done on March 29, 2024. 05/08/2024 patient was tachycardic EKG with atrial tachycardia. She is back on carvedilol which fell off her list on admission. Also needed IV digoxin 1 time dose 05/08/2024. Currently rate controlled Right below-knee amputation Charcot foot COPD wears 2 L nasal cannula at night Congestive heart failure chronic diastolic/systolic EF 20-25% acute on chronic on IV diuresis Coronary artery disease with CABG and stent 2018 lad line anxiety depression Type 2 diabetes on insulin Diabetic. Peripheral neuropathy Hyperlipidemia Hypothyroidism History of L1 vertebral fracture History of pelvic fracture Peripheral artery disease with stenting of both external iliac arteries in 2019 stenting of the left common iliac vein for presumed syndrome Status post cardiac ICD pacemaker placement Suspected sleep apnea DVT prophylaxis on Eliquis Subjective Date/time seen: 05/09/24 13:25 Interval history: Patient somnolent but easily arousable to have a good conversation. She has been getting IV Dilaudid. Which will be stopped. Discussed with the patient. Heart rate is improved. Review of Systems Review of Systems: All systems reviewed & are unremarkable except as noted in
[2024-05-09 16:39] LABS: Glucose Point of Care 142 mg/dl (65-105)
[2024-05-09 21:01] LABS: Glucose Point of Care 134 mg/dl (65-105)
[2024-05-09] MEDS: DOXYCYCLINE HYCLATE 100 MG TABLET PO (21:02)
[2024-05-09] MEDS: AMOXICILLIN/CLAVULANATE K 875-125 MG TAB 1 TABLET PO (21:02)
[2024-05-10] VITALS (10 sets, daily range): BP systolic 109–122; BP diastolic 53–59; PULSE 69–87; RESP 16–20; TEMP 36.4; O2SAT 92–97
[2024-05-10] MEDS: HYDROcodone/acetaminophen (*CRX) 5-325 MG TABLET 1 TAB PO ×2 (00:06→05:38)
--- NOTE | 2024-05-10 05:06 | PC.NURSE ---
Pt woke up and called requesting Dilaudid. Went to evaluate pain level, patient already back to sleep. Valdemar reported on 05-09 that after giving her Dilaudid PO, she slept all day, not even waking up to eat her meals.
[2024-05-10] MEDS: LEVOTHYROXINE SODIUM 50 MCG TABLET PO (05:38)
[2024-05-10 06:14] LABS: Basophils Absolute Auto 0.1 K/mm3 (0.0-0.1); Eosinophils Absolute Auto 0.1 K/mm3 (0-0.3); Eosinophils Percent Auto 2.2 % (0-4.4); Hematocrit 34.7 % (37.0-47.0); Hemoglobin 10.3 g/dL (12.0-15.0); Immature Granulocyte Absolute 0.01 K/mm3 (0.00-0.031); Immature Granulocyte Percent A 0.2 % (0-0.5); Lymphocytes Absolute Auto 0.57 K/mm3 (0.9-3.2); Mean Corpuscular HGB Conc 29.7 g/dl (32-36); Mean Corpuscular Hemoglobin 22.6 pg (26-34); Mean Corpuscular Volume 76.1 fl (80-100); Mean Platelet Volume 10.8 fl (7.4-10.4); Monocytes Absolute Auto 0.4 K/mm3 (0.1-0.6); Monocytes Percent Auto 6.8 % (2.6-8.5); Neutrophils Absolute Auto 5.1 K/mm3 (1.3-6.7); Neutrophils Percent Auto 80.8 % (45.5-73.1); Platelet Count Result 183 k/mm3 (150-375); Red Blood Count 4.56 M/mm3 (4.2-5.4); Red Cell Distribution Width 19.2 % (11.5-14.5); White Blood Count 6.3 K/mm3 (4.5-10.0)
[2024-05-10 06:17] LABS: Alanine Aminotransferase 31 U/L (6-35); Albumin Level 3.2 g/dL (3.5-5.1); Alkaline Phosphatase 130 U/L (38-126); Anion Gap 9 mmol/L (4-12); Aspartate Amino Transferase 35 U/L (14-36); Bilirubin,Total 0.6 mg/dL (0.2-1.3); Blood Urea Nitrogen 27 mg/dL (7-17); Calcium 8.1 mg/dL (8.4-10.2); Carbon Dioxide 23 mmol/L (22-30); Chloride 104 mmol/L (98-107); Estimated CRCL calculation 58 ml/min; Estimated Glomerular Filt Rate 57; Glucose 151 mg/dL (65-110); Magnesium 1.7 mg/dL (1.6-2.3); Potassium 3.7 mmol/L (3.4-5.0); Sodium 136 mmol/L (137-145)
[2024-05-10 07:23] LABS: Anisocytosis 2+; Hypochromasia 1+; Microcytosis 1+ (NORMAL); Platelet Estimate Adequate (Adequate); Schistocytes None Seen
[2024-05-10 07:40] LABS: Glucose Point of Care 141 mg/dl (65-105)
[2024-05-10] MEDS: UMECLIDINIUM/VILANTEROL 62.5-25 MCG ELLIPTA 1 PUFF INHALATION (07:59)
--- NOTE | 2024-05-10 10:41 | PC.NURSE ---
This RN called MD. Patient has not eaten today but has insulin orders. MD states all insulin should be held while not eating or if BG is less than 120.
--- NOTE | 2024-05-10 11:36 | PC.NURSE ---
Pt using call light to ask for pain medication. When this RN went to the room the patient was snoring. This RN called MD to notify him of the situation. MD asked that the PRN pain medications be discontinued except tylenol and NORCO. This RN assessed patient and attempted to give all morning medications. Patient stated if she could not have Dilaudid she did not want anything at all. Pt refusing all daily medications and NORCO although she states her pain is 10/10.
[2024-05-10 11:38] LABS: Glucose Point of Care 116 mg/dl (65-105)
[2024-05-10] MEDS: HYDROmorphone HCL (*CRX) 2 MG TABLET 1 MG PO (12:47)
--- NOTE | 2024-05-10 15:50 | PM.IMPN ---
Progress Note: A&P Assessment and Plan (1) Abdominal pain: Code(s): R10.9 - Unspecified abdominal pain Status: Acute (2) Elevated liver enzymes: Code(s): R74.8 - Abnormal levels of other serum enzymes Status: Acute (3) Lung cancer: Code(s): C34.90 - Malignant neoplasm of unspecified part of unspecified bronchus or lung Status: Acute (4) Cirrhosis: Code(s): K74.60 - Unspecified cirrhosis of liver Status: Acute (5) Compression fracture of L2 lumbar vertebra: Qualifiers: Encounter type: initial encounter Qualified Code(s): S32.020A - Wedge compression fracture of second lumbar vertebra, initial encounter for closed fracture Code(s): S32.020A - Wedge compression fracture of second lumbar vertebra, initial encounter for closed fracture Status: Chronic (6) Physical deconditioning: Code(s): R53.81 - Other malaise Status: Acute (7) Adult failure to thrive: Code(s): R62.7 - Adult failure to thrive Status: Acute (8) Ischemic cardiomyopathy: Code(s): I25.5 - Ischemic cardiomyopathy Status: Acute (9) Chronic obstructive pulmonary disease: Qualifiers: COPD type: unspecified COPD Qualified Code(s): J44.9 - Chronic obstructive pulmonary disease, unspecified Code(s): J44.9 - Chronic obstructive pulmonary disease, unspecified Status: Chronic (10) Type 2 diabetes mellitus with hyperglycemia, with long-term current use of insulin: Code(s): E11.65 - Type 2 diabetes mellitus with hyperglycemia; 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 Was recently in the ER on 05/05/2024 as well with similar complaint. Recently diagnosed cancer 3 weeks ago. Not currently undergoing any chemotherapy or radiation. Followed up with oncologist has not happened yet. She has been admitted for pain management. Pain 3.3 cm mass in the left hepatic lobe that is new from March 2022. Associated right small and moderate left pleural effusion pulmonary edema. Sedative effect from Dilaudid IV. Chest x-ray showed worsening opacities started on ceftriaxone azithromycin. She was hypoxic needing oxygen supplementation. Effusion looks like related to CHF exacerbation. Continue IV Lasix. For pain control add hydromorphone oral. Will avoid IV Dilaudid as this is making somnolent Recently diagnosed primary bronchogenic carcinoma with hilar and mediastinal lymphadenopathy following up with oncologist basement planned start chemotherapy. Consult oncology Poorly differentiated carcinoma of liver biopsy done on March 29, 2024 05/08/2024 patient was tachycardic EKG with atrial tachycardia. She is back on carvedilol which fell off her list on admission. Also needed IV digoxin 1 time dose 05/08/2024. Currently rate controlled Right below-knee amputation Charcot foot COPD wears 2 L nasal cannula at night Congestive heart failure chronic diastolic/systolic EF 20-25% acute on chronic on IV diuresis Coronary artery disease with CABG and stent 2018 lad line anxiety depression Type 2 diabetes on insulin Diabetic. Peripheral neuropathy Hyperlipidemia Hypothyroidism History of L1 vertebral fracture History of pelvic fracture Peripheral artery disease with stenting of both external iliac arteries in 2019 stenting of the left common iliac vein for presumed syndrome Status post cardiac ICD pacemaker placement Suspected sleep apnea 05/10/24 -- Patient still in a lot of pain. There is a large left hepatic mass that may be extending the capsule causing the pain. We held her dilaudid because of somnolence and this improved. She was refusing her medications unless this was restarted. Will resume Dilaudid at lower dose since she did well with lower dose to control pain but without the over-somnolence. Avoid
[2024-05-10 16:37] LABS: Glucose Point of Care 200 mg/dl (65-105)
[2024-05-10] MEDS: HYDROmorphone HCL (*CRX) 1 MG TABLET PO ×2 (17:46→22:14)
--- NOTE | 2024-05-10 18:49 | PDONCCN ---
HPI - Date of Consult Date/Time: 05/10/24 18:49 Requesting Physician: Eden George MD Primary Care Provider: Zay Martinez MD - Consult Narrative Reason for consult: Metastatic poorly differentiated carcinoma Narrative: Tiff Vaughn is a 58 year old female recently diagnosed metastatic poorly differentiated carcinoma status post liver biopsy done on March 29, 2024. Patient has a history of smoke 7. She has history of coronary artery disease status post coronary artery bypass graft, type 2 diabetes status post right-sided BKA, COPD and congestive heart failure. CT chest done in April 03 showed 1.9 cm right upper lobe lung mass consistent with primary bronchogenic carcinoma with hilar mediastinal adenopathy and liver metastasis. Patient now came into the hospital with right upper quadrant abdominal pain and shortness of breath. CTA chest showed no evidence of there was bilateral enlarged on the left side. Pain has improved with Dilaudid. Review of Systems - Review of Systems All systems reviewed & are unremarkable except as noted in [facility] and [facility] Medical History: Medical History (Last Reviewed 05/06/24 @ 19:30 by Diamond Carnes APRN) Anxiety Charcot's joint of foot in type 2 diabetes mellitus Of the right foot Chronic obstructive pulmonary disease wears 2 L NC at night only Coronary artery disease Left anterior descending stent 01/2019. 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 Peripheral vascular disease due to secondary diabetes Presence of combination internal cardiac defibrillator (ICD) and pacemaker Serotonin syndrome Suspected sleep apnea AHI 35 on apnea link on 06/16/2022. UTI (urinary tract infection) Surgical History: Surgical History (Last Reviewed 05/06/24 @ 19:30 by Diamond Carnes APRN) History of appendectomy History of section x3 History of hysterectomy Partial, ovaries retained. Due to cervical changes. History of tonsillectomy and adenoidectomy History of vertebroplasty Hx of BKA Right 11/19/20 at [facility] S/P CABG x 5 w/MVR and left atrial appendage ligation Status post cholecystectomy Stented coronary artery X1 Family History: Family History (Last Reviewed 05/06/24 @ 19:30 by Diamond Carnes APRN) Sibling Diabetes mellitus Mother Heart failure Cardiomegaly Arthritis Atrial fibrillation Family history of osteoporosis Family history of Alzheimer's disease Hypertension Cardiomyopathy Acute myocardial infarction History of heart artery stent Congestive heart failure Daughter Anxiety Father Esophagus cancer Cancer of spinal column - Social History Social History: Social History (Last Reviewed 05/06/24 @ 19:30 by Diamond Carnes APRN) Gender Identity: Gender identity (if verbalized by the patient): Female Alcohol Use: Alcohol intake: former Substance Use: Substance use: current Substance use type: marijuana Other substance usage details: One edible 2 per week Last use: 03/22/24 Others: Spiritual care concerns: No Living Arrangements: Living arrangements: alone Smoking Status: Smoking status: Former smoker Smoking end date: 08/16/06 Smoking Pack-years: Smoking packs per day: 1 Smoking cigarettes per day: 20.0 Years smoked: 20 Smoking pack-years: 30.00 Comments: Additional smoking assessment comments: quit 2019 Social Determinants of Health: Do You Feel Safe in your Home?: Yes Has the Lack of Transportat
[2024-05-10 20:28] LABS: Glucose Point of Care 336 mg/dl (65-105)
[2024-05-10] MEDS: ALPRAZolam (*CRX) 0.5 MG TABLET PO (22:15)
[2024-05-11] VITALS (8 sets, daily range): BP systolic 107–142; BP diastolic 57–74; PULSE 78–92; RESP 16–18; TEMP 35.9–36.8; O2SAT 91–96
[2024-05-11] MEDS: HYDROmorphone HCL (*CRX) 1 MG TABLET PO ×3 (03:01→21:39)
[2024-05-11] MEDS: UMECLIDINIUM/VILANTEROL 62.5-25 MCG ELLIPTA 1 PUFF INHALATION (08:08)
[2024-05-11 08:12] LABS: Glucose Point of Care 167 mg/dl (65-105)
--- NOTE | 2024-05-11 08:50 | PCOTNOTE ---
Patient refused to participate in any services this A.M. Patient verbalized she is in severe body pain, nothing helps but Dilaudid, and they wont give me what I need . RN notified and stated she also refused to take her medications this A.M.
--- NOTE | 2024-05-11 10:13 | PCPTNOTE ---
Patient refused treatment this session. Patient states she does not feel well and does not want to do PT. Educated patient on the importance of participating in therapy to improve strength, endurance, and functional mobility. Patient states I know but I just can't do it. Patient's breakfast present and I offered to assist her with set up but patient refused stating she did not want to eat anything.
[2024-05-11 11:24] LABS: Glucose Point of Care 154 mg/dl (65-105)
--- NOTE | 2024-05-11 12:42 | PC.NURSE ---
This nurse went in to assess patient and give morning medications. Patient refused morning medications, OT treatment and breakfast. Dr Hutson called and left to notify of refusals. Spoke to Dr. Hutson [id number] and informed him of patient's refusal of medications, request for IV dilaudid and request to speak to the provider again. Provider does not wish to prescribe IV dilaudid at this time and told this nurse that he had to continue morning rounds and could not see patient again. Patient informed of this. Provider wanted nurse to re-try giving patient AM medications. Patient still refusing AM medications at this time, provider notified.
--- NOTE | 2024-05-11 14:19 | HOMEO2EVAL ---
Evaluation was performed at [facility] Home Oxygen Evaluation RC: Home Oxygen (O2) Evaluation Start: 05/10/24 18:59 Freq: ONCE Status: Active Protocol: RPE Activity Type Activity Date Activity User E-sign Co-sign Detail Recorded Client Recorded Date Recorded By Document 05/11/24 14:00 DJO [email or web address] 05/11/24 14:19 DJO Document 05/11/24 14:05 DJO [email or web address] 05/11/24 14:19 DJO Document 05/11/24 14:15 DJO [email or web address] 05/11/24 14:19 DJO 05/11/24 05/11/24 05/11/24 14:00 14:05 14:15 Home O2 Evaluation [Oxygen] -Test Phase Resting Exercise Resting -Oxygen Delivery Room Air Room Air Room Air [Pulse Oximetry] -Pulse Oximetry (90-100 %) 92 91 92 [Pulse Rate] -Pulse Rate (60-100 beats/min) 80 89 79 [Evaluation] -Activity Tolerance Poor [Comments] -Home Oxygen Evaluation Comments PT NON AMBULATORY, TRANSFERRED TO COMMODE [Charges] -Evaluation Charges O2 Evaluation by Pulmonary
--- NOTE | 2024-05-11 14:20 | PCRCNOTE ---
HOME O2 EVAL COMPLETE, NO DAY TIME REQUIREMENTS. SHE HAS NOC HOME O2 WITH [facility]
[2024-05-11 16:22] LABS: Glucose Point of Care 225 mg/dl (65-105)
--- NOTE | 2024-05-11 18:38 | PM.IMPN ---
Progress Note: A&P Assessment and Plan (1) Abdominal pain: Code(s): R10.9 - Unspecified abdominal pain Status: Acute (2) Elevated liver enzymes: Code(s): R74.8 - Abnormal levels of other serum enzymes Status: Acute (3) Lung cancer: Code(s): C34.90 - Malignant neoplasm of unspecified part of unspecified bronchus or lung Status: Acute (4) Cirrhosis: Code(s): K74.60 - Unspecified cirrhosis of liver Status: Acute (5) Compression fracture of L2 lumbar vertebra: Qualifiers: Encounter type: initial encounter Qualified Code(s): S32.020A - Wedge compression fracture of second lumbar vertebra, initial encounter for closed fracture Code(s): S32.020A - Wedge compression fracture of second lumbar vertebra, initial encounter for closed fracture Status: Chronic (6) Physical deconditioning: Code(s): R53.81 - Other malaise Status: Acute (7) Adult failure to thrive: Code(s): R62.7 - Adult failure to thrive Status: Acute (8) Ischemic cardiomyopathy: Code(s): I25.5 - Ischemic cardiomyopathy Status: Acute (9) Chronic obstructive pulmonary disease: Qualifiers: COPD type: unspecified COPD Qualified Code(s): J44.9 - Chronic obstructive pulmonary disease, unspecified Code(s): J44.9 - Chronic obstructive pulmonary disease, unspecified Status: Chronic (10) Type 2 diabetes mellitus with hyperglycemia, with long-term current use of insulin: Code(s): E11.65 - Type 2 diabetes mellitus with hyperglycemia; Z79.4 - long term care administrator (current) use of insulin Status: Chronic Plan Patient presents to the right upper quadrant and SOB. She was recently diagnosed liver cancer by biopsy on 03/29/24. She has concerning findings for lung cancer on imaging. The pathology showed poorly differentiating cancer so unclear where the primary lesion is but presumed lung CA. She has not followed up with oncology, has not had port placed nor is she undergoing any chemotherapy or radiation. She was admitted for pain management. LLE venous doppler was negative for DVT. CTA chest showing bilateral pleural effusion L>R, left basilar airspace disease, right hilar adenopathy and liver lesions but no PE. She was treated with IV Lasix for CHF. BNP 6340. Echo in October shows diastolic/systolic CHF with EF 20-25%. [place] she has acute on chronic diastolic/systolic CHF exacerbation. Repeat CXR continue to show mild probable pulmonary edema. She was started on Dilaudid IV but was somnolent so changed to oral route and dose decreased. She was also started on ceftriaxone azithromycin for possible PNA and now changed to oral abx. She was hypoxic needing oxygen supplementation. Effusion looks like related to CHF exacerbation vs malignant. Patient was tachycardic with EKG with atrial tachycardia, possibly atrial flutter. She is on Eliquis curently. She is back on carvedilol which fell off her list on admission. Also needed IV digoxin x1 time dose 05/08/2024. Currently rate controlled. She does have COPD and wears 2 L nasal cannula at night chronically. Patient still in a lot of pain. There is a large left hepatic mass that may be extending the capsule causing the pain. Oncology consulted and appreciate their input. Plan wsa for palliative chemotherapy but she is undecided about getting chemotherapy. We did discuss hospice but she is still undecided. No port this admission since on anticoagulation. She has been refusing her medications here. Code status - full DVT prophylaxis on Eliquis Subjective Date/time seen: 05/11/24 18:38 Interval history: 58yo female with liver cancer, lung mass, DM, CAD amd COPD on 2L O2 at night here for abdominal pain. No problems overnight. Still with persistent abdominal pain. no n/v. No diarrhea or constipation. Cough is better. No SOB or CP. Abd pain does radiated up to the right side of the chest. Exam Narrative:
[2024-05-11 19:58] LABS: Glucose Point of Care 248 mg/dl (65-105)
[2024-05-11] MEDS: CYCLOBENZAPRINE HCL 10 MG TABLET PO (20:16)
[2024-05-11] MEDS: ALPRAZolam (*CRX) 0.5 MG TABLET PO (20:16)
[2024-05-12] MEDS: HYDROmorphone HCL (*CRX) 1 MG TABLET PO (02:35)
[2024-05-12 05:20] VITALS: BP 108/62; PULSE 79; RESP 16; TEMP 36.4; O2SAT 100
[2024-05-12 08:00] VITALS: PULSE 86; O2SAT 94
[2024-05-12 08:29] VITALS: O2SAT 94
[2024-05-12 08:32] LABS: Glucose Point of Care 170 mg/dl (65-105)
[2024-05-12] MEDS: INSULIN ASPART (*BKC) 100 UNITS/ML 10 UNITS SUB-Q (09:28)
[2024-05-12] MEDS: FUROSEMIDE INJ 40 MG/4 ML VIAL IV PUSH (09:30)
--- NOTE | 2024-05-12 09:59 | PCOTNOTE ---
Attempted OT treatment session. Patient refuses to participate, states she is in to much pain, all the time. Patient states the doctor says I'm dying, so why try, let me be comfortable and get rid of pain . Patient declines any activity or participation.
--- NOTE | 2024-05-12 11:18 | PCRCNOTE ---
Home O2 eval completed , 05/11. Pt has home O2 which she wears nocturnally. No further O2 needs.
[2024-05-12 12:05] LABS: Glucose Point of Care 93 mg/dl (65-105)
--- NOTE | 2024-05-12 12:08 | PCPTNOTE ---
Patient refused PT treatment. Patient states I don't want therapy!
[2024-05-12 14:00] VITALS: BP 113/70; PULSE 72; RESP 20; TEMP 35.7; O2SAT 100
--- NOTE | 2024-05-12 15:08 | PC.NURSE ---
This nurse called Dr. Hutson to notify that patient is refusing medicines for breakfast and lunch. Pt not eating breakfast and lunch. At this time pt had two jello cups and is a lot more talkative.
[2024-05-12 16:14] LABS: Glucose Point of Care 127 mg/dl (65-105)
--- NOTE | 2024-05-12 16:32 | PM.DS ---
DS: Admitting Diagnosis Discharge Date 05/12/24 Admitting Diagnosis Abdominal pain DS: Discharge Diagnosis Discharge Diagnosis (1) Abdominal pain: Code(s): R10.9 - Unspecified abdominal pain Status: Acute (2) Elevated liver enzymes: Code(s): R74.8 - Abnormal levels of other serum enzymes Status: Acute (3) Lung cancer: Code(s): C34.90 - Malignant neoplasm of unspecified part of unspecified bronchus or lung Status: Acute (4) Cirrhosis: Code(s): K74.60 - Unspecified cirrhosis of liver Status: Acute (5) Compression fracture of L2 lumbar vertebra: Qualifiers: Encounter type: initial encounter Qualified Code(s): S32.020A - Wedge compression fracture of second lumbar vertebra, initial encounter for closed fracture Code(s): S32.020A - Wedge compression fracture of second lumbar vertebra, initial encounter for closed fracture Status: Chronic (6) Physical deconditioning: Code(s): R53.81 - Other malaise Status: Acute (7) Adult failure to thrive: Code(s): R62.7 - Adult failure to thrive Status: Acute (8) Ischemic cardiomyopathy: Code(s): I25.5 - Ischemic cardiomyopathy Status: Acute (9) Chronic obstructive pulmonary disease: Qualifiers: COPD type: unspecified COPD Qualified Code(s): J44.9 - Chronic obstructive pulmonary disease, unspecified Code(s): J44.9 - Chronic obstructive pulmonary disease, unspecified Status: Chronic (10) Type 2 diabetes mellitus with hyperglycemia, with long-term current use of insulin: Code(s): E11.65 - Type 2 diabetes mellitus with hyperglycemia; 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 Please see H&P for details. Hospital Course: Patient presents to the right upper quadrant and SOB. She was recently diagnosed liver cancer by biopsy on 03/29/24. She has concerning findings for lung cancer on imaging. The pathology showed poorly differentiating cancer so unclear where the primary lesion is but presumed lung CA. She has not followed up with oncology, has not had port placed nor is she undergoing any chemotherapy or radiation. She was admitted for pain management. LLE venous doppler was negative for DVT. CTA chest showing bilateral pleural effusion L>R, left basilar airspace disease, right hilar adenopathy and liver lesions but no PE. She was treated with IV Lasix for CHF. BNP 6340. Echo in October shows diastolic/systolic CHF with EF 20-25%. [place] she has acute on chronic diastolic/systolic CHF exacerbation. Repeat CXR continue to show mild probable pulmonary edema. She was started on Dilaudid IV but was somnolent so changed to oral route and dose decreased. She was also started on ceftriaxone and azithromycin for possible PNA and then changed to oral abx. She was hypoxic needing oxygen supplementation. Effusion looks like related to CHF exacerbation vs malignant. Patient was tachycardic with EKG with atrial tachycardia, possibly atrial flutter. She was on Eliquis currently. She is back on carvedilol which fell off her list on admission. Also needed IV digoxin x1 time dose 05/08/2024. She does have COPD and wears 2 L nasal cannula at night chronically. Patient still in a lot of pain. There is a large left hepatic mass that may be extending the capsule causing the pain. Oncology was consulted and appreciate their input. Plan was for palliative chemotherapy but she is undecided about getting chemotherapy. We did discuss hospice but she is still undecided. She has been refusing her medications here and when asked, she states that she is tired of taking her medications. Care coordination spoke with her about options and added paliative care which patietn agreed to. Home O2 evaluation showing she does
== END 2024-05-12 17:40 | disposition home health service (06) | DRG 435 ==
LOC: ANHED 18:59 → ANH3MEDSUR 05-07 01:35
PROVIDERS: Internal Medicine; Admitting Provider Internal Medicine; Emergency Provider Registered Nurse; PCP Emergency Medicine; Visit Provider Internal Medicine
DX: C78.7 Secondary malignant neoplasm of liver and intrahepatic bile duct (principal); I50.43 Acute on chronic combined systolic (congestive) and diastolic (congestive) heart failure; C34.90 Malignant neoplasm of unspecified part of unspecified bronchus or lung; E11.42 Type 2 diabetes mellitus with diabetic polyneuropathy; E11.51 Type 2 diabetes mellitus with diabetic peripheral angiopathy without gangrene; I25.10 Atherosclerotic heart disease of native coronary artery without angina pectoris; I25.5 Ischemic cardiomyopathy; J44.9 Chronic obstructive pulmonary disease, unspecified; K74.60 Unspecified cirrhosis of liver; M81.0 Age-related osteoporosis without current pathological fracture; R62.7 Adult failure to thrive; R74.8 Abnormal levels of other serum enzymes; Z79.01 Long term (current) use of anticoagulants; Z79.02 Long term (current) use of antithrombotics/antiplatelets; Z79.4 Long term (current) use of insulin; Z99.81 Dependence on supplemental oxygen; Z95.5 Presence of coronary angioplasty implant and graft; Z95.810 Presence of automatic (implantable) cardiac defibrillator; Z90.49 Acquired absence of other specified parts of digestive tract; Z89.511 Acquired absence of right leg below knee; Z95.1 Presence of aortocoronary bypass graft; Z87.891 Personal history of nicotine dependence; Z99.3 Dependence on wheelchair
CPT/HCPCS: 36415; 71045; 71046; 80053; 81001; 82948; 83605; 83690; 83735; 83880; 84484; 85025; 85055; 85610; 85730; 87040; 87086; 87088; 93005; 94618; 94640; 96361; 96374; 96376; 97161; 97166; 99284; 99285; A9270; G0378; J0456; J0696; J0780; J1160; J1170; J1171; J1815; J1940; J2060; J7030

== ENCOUNTER 2024-05-15 06:37 | Emergency (ER) | payer MEDICARE, MEDICAID, SELFPAY ==
[2024-05-15 06:44] VITALS: BP 129/86; PULSE 98; RESP 13; TEMP 36.4; O2SAT 92
[2024-05-15 07:09] VITALS: BP 137/86; PULSE 196; RESP 17; O2SAT 95
--- NOTE | 2024-05-15 07:19 | ED.ABDPAIN ---
HPI - Abdominal Pain General Chief Complaint: Unspecified Stated Complaint: Pain Time Seen by Provider: 05/15/24 06:59 History of Present Illness HPI narrative: Pt here for exacerbation of her abdominal pain due to stage 4 liver cancer. Pt also has lung cancer and chronic renal failure. Pt says she has 2 months to live. Pt has liquid dilaudid at home but it makes her sick and she is throwing it up. Pt says the pain is not new but just not under control right now because she vomited up her dilaudid. Pt has been seen several times for this here. Related Data Home Medications Medication Instructions Recorded Confirmed cyclobenzaprine 10 mg tablet 10 mg PO TID PRN muscle spasms 05/19/23 05/07/24 duloxetine 60 mg capsule,delayed 60 mg PO DAILY 05/28/23 05/07/24 release Allergies Allergy/AdvReac Type Severity Reaction Status Date / Time methantheline Allergy Severe Unknown Verified 05/15/24 09:07 methylene blue Allergy Severe Unknown Verified 05/15/24 09:07 Fjxocii-GVK-IkA Reductase AdvReac Intermediate MYALGIAS Verified 05/15/24 09:07 Inhibitor diphenhydramine AdvReac Itching Verified 05/15/24 09:07 [From Benadryl Allergy] ondansetron [From Zofran] AdvReac Nausea and Verified 05/15/24 09:07 Vomiting propofol AdvReac Agitated Verified 05/15/24 09:07 Review of Systems Review of Systems: All systems reviewed & are unremarkable except as noted in HPI and below PMFSH Past Medical History Medical History Anxiety Charcot's joint of foot in type 2 diabetes mellitus Of the right foot Chronic obstructive pulmonary disease wears 2 L NC at night only Coronary artery disease Left anterior descending stent 01/2019. Usual drop hammer setter up is Dr. 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 Peripheral vascular disease due to secondary diabetes Presence of combination internal cardiac defibrillator (ICD) and pacemaker Serotonin syndrome Suspected sleep apnea AHI 35 on apnea link on 06/16/2022. UTI (urinary tract infection) Surgical History Surgical History History of appendectomy History of section x3 History of hysterectomy Partial, ovaries retained. Due to cervical changes. History of tonsillectomy and adenoidectomy History of vertebroplasty Hx of BKA Right 11/19/20 at [facility] S/P CABG x 5 w/MVR and left atrial appendage ligation Status post cholecystectomy Stented coronary artery X1 Family History Family History Sibling Diabetes mellitus Mother Heart failure Cardiomegaly Arthritis Atrial fibrillation Family history of osteoporosis Family history of Alzheimer's disease Hypertension Cardiomyopathy Acute myocardial infarction History of heart artery stent Congestive heart failure Daughter Anxiety Father Esophagus cancer Cancer of spinal column Social History Social History Social History: The patient is . The patient had 4 children and 1 of her daughters is now. She is disabled. She is a former smoker. She denies any alcohol marijuana or illicit drugs. Primarily wheelchair-bound. Surrogate medical decision maker: Jass Arciniega, son. Code status: Full code. Smoking packs per day: 1 Smoking cigarettes per day: 20.0 Years smoked: 20 Smoking pack-years: 20.00 Smoking status: Former smoker Smoking end date: 08/16/06 Additional smoking
[2024-05-15] MEDS: SODIUM CHLORIDE 0.9% IV 1,000 ML 999 ML IV CONT (07:30)
[2024-05-15] MEDS: HYDROmorphone HCL INJ (*CRX) 1 MG/ML SYR IV PUSH (07:31)
[2024-05-15] MEDS: SODIUM CHLORIDE 0.9% IV 500 ML 999 ML IV CONT (07:51)
[2024-05-15 09:03] VITALS: RESP 17; O2SAT 97
[2024-05-15] MEDS: HYDROmorphone HCL INJ (*CRX) 1 MG/ML SYR 0.5 MG IV PUSH (09:41)
[2024-05-15 11:07] VITALS: BP 114/72; PULSE 75; RESP 14; O2SAT 98
--- NOTE | 2024-05-15 15:55 | PCCCNOTE ---
brand marketing coordinator called to the ED for assistance with pain management for pt. Pt did not want to start on hospice, she would like to start palliative care. [facility] was contacted, spoke with Alessia, who said they were unable to get her onto their service for 2-3 weeks. Call placed to [facility], they were going to contact the pt. today or tomorrow to have her get signed up if she was in agreement with their help. Her information was faxed to [facility], pt was notified that they would be contacting her. Pt was discharged home from the ED.
== END 2024-05-15 11:49 | disposition home or self-care (01) ==
PROVIDERS: Emergency Provider Emergency Medicine; PCP Emergency Medicine
DX: R10.9 Unspecified abdominal pain (principal); G89.3 Neoplasm related pain (acute) (chronic); C34.90 Malignant neoplasm of unspecified part of unspecified bronchus or lung; C78.7 Secondary malignant neoplasm of liver and intrahepatic bile duct; I25.10 Atherosclerotic heart disease of native coronary artery without angina pectoris; J44.9 Chronic obstructive pulmonary disease, unspecified; E11.610 Type 2 diabetes mellitus with diabetic neuropathic arthropathy; E11.42 Type 2 diabetes mellitus with diabetic polyneuropathy; E11.51 Type 2 diabetes mellitus with diabetic peripheral angiopathy without gangrene; I73.9 Peripheral vascular disease, unspecified; E78.00 Pure hypercholesterolemia, unspecified; Z95.5 Presence of coronary angioplasty implant and graft; Z95.1 Presence of aortocoronary bypass graft; Z95.810 Presence of automatic (implantable) cardiac defibrillator; Z87.891 Personal history of nicotine dependence; Z87.440 Personal history of urinary (tract) infections; Z90.711 Acquired absence of uterus with remaining cervical stump; Z89.511 Acquired absence of right leg below knee; Z79.01 Long term (current) use of anticoagulants; Z79.899 Other long term (current) drug therapy; Z79.02 Long term (current) use of antithrombotics/antiplatelets; Z79.4 Long term (current) use of insulin
CPT/HCPCS: 96374; 96376; 99284; J1170; J7030; J7040

== ENCOUNTER 2024-05-18 22:50 | Emergency (ER) | payer MEDICARE, MEDICAID, SELFPAY ==
[2024-05-18 22:54] VITALS: BP 131/49; PULSE 91; RESP 17; TEMP 36.1; O2SAT 100
[2024-05-19 02:23] LABS: Alanine Aminotransferase 25 U/L (6-35); Albumin Level 4.2 g/dL (3.5-5.1); Alkaline Phosphatase 135 U/L (38-126); Anion Gap 15 mmol/L (4-12); Aspartate Amino Transferase 53 U/L (14-36); Blood Urea Nitrogen 29 mg/dL (7-17); Calcium 8.9 mg/dL (8.4-10.2); Carbon Dioxide 17 mmol/L (22-30); Chloride 104 mmol/L (98-107); Estimated CRCL calculation 51 ml/min; Estimated Glomerular Filt Rate 57; Glucose 321 mg/dL (65-110); Potassium 4.4 mmol/L (3.4-5.0); Sodium 136 mmol/L (137-145)
[2024-05-19 02:30] LABS: Basophils Absolute Auto 0.1 K/mm3 (0.0-0.1); Basophils Percent Auto 0.6 % (0.2-1.2); Eosinophils Absolute Auto 0.1 K/mm3 (0-0.3); Eosinophils Percent Auto 0.7 % (0-4.4); Hematocrit 36.9 % (37.0-47.0); Hemoglobin 11.3 g/dL (12.0-15.0); Immature Granulocyte Absolute 0.03 K/mm3 (0.00-0.031); Immature Granulocyte Percent A 0.3 % (0-0.5); Immature Platelet Fraction Pct 6.6 % (0.9-11.2); Lymphocytes Absolute Auto 1.46 K/mm3 (0.9-3.2); Lymphocytes Percent Auto 13.2 % (18.3-44.2); Mean Corpuscular HGB Conc 30.6 g/dl (32-36); Mean Corpuscular Hemoglobin 22.5 pg (26-34); Mean Corpuscular Volume 73.4 fl (80-100); Mean Platelet Volume 11.5 fl (7.4-10.4); Monocytes Absolute Auto 0.9 K/mm3 (0.1-0.6); Monocytes Percent Auto 7.8 % (2.6-8.5); Neutrophils Absolute Auto 8.6 K/mm3 (1.3-6.7); Neutrophils Percent Auto 77.4 % (45.5-73.1); Platelet Count Result 223 k/mm3 (150-375); Red Blood Count 5.03 M/mm3 (4.2-5.4); Red Cell Distribution Width 18.9 % (11.5-14.5); White Blood Count 11.1 K/mm3 (4.5-10.0)
[2024-05-19] MEDS: HYDROmorphone HCL INJ (*CRX) 1 MG/ML SYR IV PUSH ×3 (02:32→04:40)
[2024-05-19 02:33] VITALS: BP 140/94; PULSE 148; RESP 15; O2SAT 100
[2024-05-19] MEDS: SODIUM CHLORIDE 0.9% IV 1,000 ML 999 ML IV CONT (02:33)
[2024-05-19 02:51] LABS: Ovalocytes 1+; Platelet Estimate Adequate (Adequate); Schistocytes None Seen
--- NOTE | 2024-05-19 03:20 | ED.GENADULT ---
HPI - General Adult General Chief complaint: Unspecified Stated complaint: Pain in lung, hx of liver and lung cancer, pain Time Seen by Provider: 05/19/24 02:18 History of Present Illness HPI narrative: Patient is a 58-year-old female who presents emergency department with chief complaint of pain all over patient reports she has history of lung cancer and liver cancer the patient reports that she is on p.o. Dilaudid liquid at home of a reports that she has been vomiting it up the patient states she has not really been keeping much down reports that she is seeing Oncology and they are trying to determine if or which way they plan on treating her. Related Data Home Medications Medication Instructions Recorded Confirmed cyclobenzaprine 10 mg tablet 10 mg PO TID PRN muscle spasms 05/19/23 05/07/24 duloxetine 60 mg capsule,delayed 60 mg PO DAILY 05/28/23 05/07/24 release Allergies Allergy/AdvReac Type Severity Reaction Status Date / Time methantheline Allergy Severe Unknown Verified 05/18/24 22:57 methylene blue Allergy Severe Unknown Verified 05/18/24 22:57 Jvjwbrr-IGE-MxP Reductase AdvReac Intermediate MYALGIAS Verified 05/18/24 22:57 Inhibitor diphenhydramine AdvReac Itching Verified 05/18/24 22:57 [From Benadryl Allergy] ondansetron [From Zofran] AdvReac Nausea and Verified 05/18/24 22:57 Vomiting propofol AdvReac Agitated Verified 05/18/24 22:57 Review of Systems Review of Systems: A 10 system review of systems was completed on the patient and is negative except for what is stated in the HPI. Nursing and ancillary documentation was reviewed. [facility] Past Medical History Medical History Anxiety Charcot's joint of foot in type 2 diabetes mellitus Of the right foot Chronic obstructive pulmonary disease wears 2 L NC at night only Coronary artery disease Left anterior descending stent 01/2019. Usual framing and hanging is Dr. 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 Peripheral vascular disease due to secondary diabetes Presence of combination internal cardiac defibrillator (ICD) and pacemaker Serotonin syndrome Suspected sleep apnea AHI 35 on apnea link on 06/16/2022. UTI (urinary tract infection) Surgical History Surgical History History of appendectomy History of section x3 History of hysterectomy Partial, ovaries retained. Due to cervical changes. History of tonsillectomy and adenoidectomy History of vertebroplasty Hx of BKA Right 11/19/20 at [facility] S/P CABG x 5 w/MVR and left atrial appendage ligation Status post cholecystectomy Stented coronary artery X1 Family History Family History Sibling Diabetes mellitus Mother Heart failure Cardiomegaly Arthritis Atrial fibrillation Family history of osteoporosis Family history of Alzheimer's disease Hypertension Cardiomyopathy Acute myocardial infarction History of heart artery stent Congestive heart failure Daughter Anxiety Father Esophagus cancer Cancer of spinal column Social History Social History Social History: The patient is . The patient had 4 children and 1 of her daughters is now. She is disabled. She is a former smoker. She denies any alcohol marijuana or illicit drugs. Primarily wheelchair-bound. Surrogate medical decision maker: Jass Arciniega, son. Code
[2024-05-19 05:51] VITALS: BP 133/81; PULSE 92; RESP 18; O2SAT 98
[2024-05-19] MEDS: PROCHLORPERAZINE EDISYLATE 10 MG/2 ML VIAL IM (06:24)
== END 2024-05-19 06:54 | disposition home or self-care (01) ==
PROVIDERS: Emergency Provider Emergency Medicine; PCP Emergency Medicine
DX: R10.84 Generalized abdominal pain (principal); G89.3 Neoplasm related pain (acute) (chronic); C78.7 Secondary malignant neoplasm of liver and intrahepatic bile duct; C34.90 Malignant neoplasm of unspecified part of unspecified bronchus or lung; I25.10 Atherosclerotic heart disease of native coronary artery without angina pectoris; J44.9 Chronic obstructive pulmonary disease, unspecified; E11.610 Type 2 diabetes mellitus with diabetic neuropathic arthropathy; E11.42 Type 2 diabetes mellitus with diabetic polyneuropathy; E11.51 Type 2 diabetes mellitus with diabetic peripheral angiopathy without gangrene; I73.9 Peripheral vascular disease, unspecified; E78.00 Pure hypercholesterolemia, unspecified; Z95.5 Presence of coronary angioplasty implant and graft; Z95.1 Presence of aortocoronary bypass graft; Z95.810 Presence of automatic (implantable) cardiac defibrillator; Z87.891 Personal history of nicotine dependence; Z87.440 Personal history of urinary (tract) infections; Z90.711 Acquired absence of uterus with remaining cervical stump; Z89.511 Acquired absence of right leg below knee; Z90.49 Acquired absence of other specified parts of digestive tract; Z79.01 Long term (current) use of anticoagulants; Z79.899 Other long term (current) drug therapy; Z79.02 Long term (current) use of antithrombotics/antiplatelets; Z79.4 Long term (current) use of insulin
CPT/HCPCS: 36415; 80053; 85025; 85055; 96361; 96372; 96374; 96376; 99284; J0780; J1171; J7030

== ENCOUNTER 2024-05-20 01:57 | Emergency (ER) | payer MEDICARE, MEDICAID, SELFPAY ==
[2024-05-20] VITALS (8 sets, daily range): BP systolic 100–126; BP diastolic 56–112; PULSE 66–103; RESP 15–20; TEMP 36.4–36.8; O2SAT 83–100
--- NOTE | 2024-05-20 02:11 | ED.GENADULT ---
HPI - General Adult General Chief complaint: Abdominal Pain Stated complaint: abd pain, hx CA Time Seen by Provider: 05/20/24 02:08 Source: patient Mode of arrival: ambulatory Limitations: no limitations History of Present Illness HPI narrative: This is a 58-year-old female who presents to the ED via EMS from assisted living with chief complaint of nausea and abdominal pain. She relates this pain to her typical cancer pain. She states that she has liver and lung cancer and is currently being worked up and evaluated to find out what is primary. She is following with Dr. parada. Patient was seen in the department last night and discharged after achieving pain control. Patient states that she has been having nausea and vomiting home with liquid Dilaudid that she has prescribed at home for pain control. states that she also gets sick with tramadol, oxycodone, [place]. Denies fevers, chills or any significant change from pain yesterday. Related Data Home Medications Medication Instructions Recorded Confirmed cyclobenzaprine 10 mg tablet 10 mg PO TID PRN muscle spasms 05/19/23 05/07/24 duloxetine 60 mg capsule,delayed 60 mg PO DAILY 05/28/23 05/07/24 release Allergies Allergy/AdvReac Type Severity Reaction Status Date / Time methantheline Allergy Severe Unknown Verified 05/18/24 22:57 methylene blue Allergy Severe Unknown Verified 05/18/24 22:57 Ogjlwtm-BDM-WjW Reductase AdvReac Intermediate MYALGIAS Verified 05/18/24 22:57 Inhibitor diphenhydramine AdvReac Itching Verified 05/18/24 22:57 [From Benadryl Allergy] ondansetron [From Zofran] AdvReac Nausea and Verified 05/18/24 22:57 Vomiting propofol AdvReac Agitated Verified 05/18/24 22:57 Review of Systems Review of Systems: All systems as dictated in HPI [facility] Past Medical History Medical History Anxiety Charcot's joint of foot in type 2 diabetes mellitus Of the right foot Chronic obstructive pulmonary disease wears 2 L NC at night only Coronary artery disease Left anterior descending stent 01/2019. 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 Peripheral vascular disease due to secondary diabetes Presence of combination internal cardiac defibrillator (ICD) and pacemaker Serotonin syndrome Suspected sleep apnea AHI 35 on apnea link on 06/16/2022. UTI (urinary tract infection) Surgical History Surgical History History of appendectomy History of section x3 History of hysterectomy Partial, ovaries retained. Due to cervical changes. History of tonsillectomy and adenoidectomy History of vertebroplasty Hx of BKA Right 11/19/20 at [facility] S/P CABG x 5 w/MVR and left atrial appendage ligation Status post cholecystectomy Stented coronary artery X1 Family History Family History Sibling Diabetes mellitus Mother Heart failure Cardiomegaly Arthritis Atrial fibrillation Family history of osteoporosis Family history of Alzheimer's disease Hypertension Cardiomyopathy Acute myocardial infarction History of heart artery stent Congestive heart failure Daughter Anxiety Father Esophagus cancer Cancer of spinal column Social History Social History Social History: The patient is . The patient had 4 children and 1 of her daughters is now. She is disabled. She
[2024-05-20 02:21] LABS: Basophils Percent Auto 0.3 % (0.2-1.2); Eosinophils Percent Auto 0.1 % (0-4.4); Hematocrit 35.8 % (37.0-47.0); Hemoglobin 10.8 g/dL (12.0-15.0); Immature Granulocyte Absolute 0.05 K/mm3 (0.00-0.031); Immature Granulocyte Percent A 0.4 % (0-0.5); Lymphocytes Absolute Auto 0.74 K/mm3 (0.9-3.2); Lymphocytes Percent Auto 6.2 % (18.3-44.2); Mean Corpuscular HGB Conc 30.2 g/dl (32-36); Mean Corpuscular Hemoglobin 22.4 pg (26-34); Mean Corpuscular Volume 74.1 fl (80-100); Mean Platelet Volume 11.3 fl (7.4-10.4); Monocytes Absolute Auto 0.9 K/mm3 (0.1-0.6); Monocytes Percent Auto 7.1 % (2.6-8.5); Neutrophils Absolute Auto 10.3 K/mm3 (1.3-6.7); Neutrophils Percent Auto 85.9 % (45.5-73.1); Platelet Count Result 213 k/mm3 (150-375); Red Blood Count 4.83 M/mm3 (4.2-5.4); Red Cell Distribution Width 19.1 % (11.5-14.5)
[2024-05-20] MEDS: HYDROmorphone HCL INJ (*CRX) 1 MG/ML SYR IV PUSH (02:22)
[2024-05-20] MEDS: ONDANSETRON HCL ODT 4 MG TABLET PO (02:23)
[2024-05-20 02:33] LABS: Alanine Aminotransferase 22 U/L (6-35); Albumin Level 3.9 g/dL (3.5-5.1); Alkaline Phosphatase 140 U/L (38-126); Anion Gap 13 mmol/L (4-12); Aspartate Amino Transferase 32 U/L (14-36); Bilirubin,Total 1.4 mg/dL (0.2-1.3); Blood Urea Nitrogen 23 mg/dL (7-17); Calcium 8.9 mg/dL (8.4-10.2); Carbon Dioxide 16 mmol/L (22-30); Chloride 106 mmol/L (98-107); Estimated CRCL calculation 74 ml/min; Estimated Glomerular Filt Rate > 60; Glucose 271 mg/dL (65-110); Sodium 135 mmol/L (137-145)
[2024-05-20 02:55] LABS: Anisocytosis 1+; Platelet Estimate Adequate (Adequate)
[2024-05-20 02:57] LABS: Microcytosis 1+ (NORMAL); Ovalocytes 1+; Schistocytes None Seen
--- NOTE | 2024-05-20 03:47 | PC.NURSE ---
Patient desats to upper 80's when sleeping; EDP aware.
== END 2024-05-20 10:35 ==
PROVIDERS: Emergency Provider Physician Assistant; PCP Emergency Medicine
DX: G89.3 Neoplasm related pain (acute) (chronic) (principal); C78.7 Secondary malignant neoplasm of liver and intrahepatic bile duct; C34.90 Malignant neoplasm of unspecified part of unspecified bronchus or lung; I25.10 Atherosclerotic heart disease of native coronary artery without angina pectoris; J44.9 Chronic obstructive pulmonary disease, unspecified; E11.610 Type 2 diabetes mellitus with diabetic neuropathic arthropathy; E11.42 Type 2 diabetes mellitus with diabetic polyneuropathy; E11.51 Type 2 diabetes mellitus with diabetic peripheral angiopathy without gangrene; I73.9 Peripheral vascular disease, unspecified; E78.00 Pure hypercholesterolemia, unspecified; Z95.5 Presence of coronary angioplasty implant and graft; Z95.1 Presence of aortocoronary bypass graft; Z95.810 Presence of automatic (implantable) cardiac defibrillator; Z87.891 Personal history of nicotine dependence; Z87.440 Personal history of urinary (tract) infections; Z90.711 Acquired absence of uterus with remaining cervical stump; Z89.511 Acquired absence of right leg below knee; Z90.49 Acquired absence of other specified parts of digestive tract; Z79.01 Long term (current) use of anticoagulants; Z79.899 Other long term (current) drug therapy; Z79.02 Long term (current) use of antithrombotics/antiplatelets; Z79.4 Long term (current) use of insulin
CPT/HCPCS: 36415; 80053; 85025; 96374; 99284; A9270; J1171

== ENCOUNTER 2024-05-22 06:01 | Emergency (ER) | payer MEDICARE, MEDICAID, SELFPAY ==
[2024-05-22] VITALS (7 sets, daily range): BP systolic 126–157; BP diastolic 58–90; PULSE 95–102; RESP 17–20; TEMP 36.8; O2SAT 92–100
--- NOTE | 2024-05-22 07:24 | ED.GENADULT ---
HPI - General Adult General Chief complaint: Unspecified Stated complaint: PAIN Time Seen by Provider: 05/22/24 06:59 History of Present Illness HPI narrative: 58-year-old female presenting to the emergency department for evaluation for uncontrolled chronic pain. Patient reports she does have lung and bone cancer. Patient states that she has not yet started treatment. Patient is unsure who she wants to be her oncologist. Patient states she does have liquid Dilaudid and Percocet at home but these cause nausea and constipation. Patient presents to the emergency department complaining of generalized pain. Care coordination is female with the patient and states that they did try to get the patient set up with palliative care but the patient states that she did not answer the phone when palliative care called Related Data Home Medications Medication Instructions Recorded Confirmed cyclobenzaprine 10 mg tablet 10 mg PO TID PRN muscle spasms 05/19/23 05/07/24 duloxetine 60 mg capsule,delayed 60 mg PO DAILY 05/28/23 05/07/24 release Allergies Allergy/AdvReac Type Severity Reaction Status Date / Time methantheline Allergy Severe Unknown Verified 05/22/24 06:11 methylene blue Allergy Severe Unknown Verified 05/22/24 06:11 Ldoxvkn-GGP-TjQ Reductase AdvReac Intermediate MYALGIAS Verified 05/22/24 06:11 Inhibitor diphenhydramine AdvReac Itching Verified 05/22/24 06:11 [From Benadryl Allergy] ondansetron [From Zofran] AdvReac Nausea and Verified 05/22/24 06:11 Vomiting propofol AdvReac Agitated Verified 05/22/24 06:11 Review of Systems Review of Systems: All systems reviewed & are unremarkable except as noted in HPI and below PMFSH Past Medical History Medical History Anxiety Charcot's joint of foot in type 2 diabetes mellitus Of the right foot Chronic obstructive pulmonary disease wears 2 L NC at night only Coronary artery disease Left anterior descending stent 01/2019. Usual rn float is Dr. 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 Peripheral vascular disease due to secondary diabetes Presence of combination internal cardiac defibrillator (ICD) and pacemaker Serotonin syndrome Suspected sleep apnea AHI 35 on apnea link on 06/16/2022. UTI (urinary tract infection) Surgical History Surgical History History of appendectomy History of section x3 History of hysterectomy Partial, ovaries retained. Due to cervical changes. History of tonsillectomy and adenoidectomy History of vertebroplasty Hx of BKA Right 11/19/20 at [facility] S/P CABG x 5 w/MVR and left atrial appendage ligation Status post cholecystectomy Stented coronary artery X1 Family History Family History Sibling Diabetes mellitus Mother Heart failure Cardiomegaly Arthritis Atrial fibrillation Family history of osteoporosis Family history of Alzheimer's disease Hypertension Cardiomyopathy Acute myocardial infarction History of heart artery stent Congestive heart failure Daughter Anxiety Father Esophagus cancer Cancer of spinal column Social History Social History Social History: The patient is . The patient had 4 children and 1 of her daughters is now. She is disabled. She is a former smoker. She denies any alcohol marijuana or illicit drugs. Primarily wheelchair-
--- NOTE | 2024-05-22 07:25 | PC.NURSE ---
pt being uncooperative. Dr. Kim at bedside. Pt refused IV.
[2024-05-22 07:32] LABS: Add Urine Microscopic? YES; Appearance Urine Clear (Clear); Bacteria Urine None Seen /hpf; Bilirubin Urine Negative (Negative); Blood Urine Negative (Negative); Color Urine Yellow (Yellow); Glucose Urine UA 3+ mg/dL (Negative); Ketones Urine Negative (Negative); Leukocyte Esterase Ur Negative LEU/UL (Negative); Nitrate Urine Negative (Negative); Non Pathogenic Casts 0-2; Protein Urine 2+ mg/dL (Negative); RBC Urine 0-2 /hpf (0-2); Specific Grav Ur 1.033 (1.001-1.035); Squamous Epithelial Cell Urine None Seen /hpf (Few); Urobilinogen Urine 0.2 mg/dL (<2.0); WBC Urine 0-5 /hpf (0-3); pH Urine 5.5 (5.0-9.0)
--- NOTE | 2024-05-22 07:36 | PC.NURSE ---
asked pt about starting an IV and getting blood drawn. pt refuses and states not right now .
--- NOTE | 2024-05-22 07:47 | PC.NURSE ---
Pt agitated about EDP ordering only a half a mg of dilaudid. Usually they give me a full mg and give me more as I ask. Why wont he? This RN discussed w/ pt and EDP Dr Collins who states he would like to start w/ 0.5mg and can increase from there. Pt notified, continues to decline an IV or nausea medications due to It hurts too much, I dont think I want another IV so soon. The nausea meds dont help, it just makes me puke all over. Pt moaning, restless, declines offers to reposition or attempt to start IV for relief. Pt pulled off tele leads and is declining vitals or comfort measures at this time. EDP Dr Collins notified of pt behavior.
[2024-05-22 08:06] LABS: Influenza A QL RT-PCR Negative (Negative); Influenza B QL RT-PCR Negative (Negative); RSV RNA, RT-PCR Negative (Negative); SARS-CoV-2 RNA PCR Negative (Negative)
--- NOTE | 2024-05-22 08:47 | PC.NURSE ---
pt is giving consent for lab work and ultrasound IV. Karen NUNES at bedside for ultrasound iv attempt.
[2024-05-22 09:05] LABS: Basophils Absolute Auto 0.1 K/mm3 (0.0-0.1); Basophils Percent Auto 0.5 % (0.2-1.2); Eosinophils Absolute Auto 0.1 K/mm3 (0-0.3); Hemoglobin 11.6 g/dL (12.0-15.0); Immature Granulocyte Absolute 0.05 K/mm3 (0.00-0.031); Immature Granulocyte Percent A 0.5 % (0-0.5); Lymphocytes Absolute Auto 1.15 K/mm3 (0.9-3.2); Lymphocytes Percent Auto 11.2 % (18.3-44.2); Mean Corpuscular HGB Conc 29.7 g/dl (32-36); Mean Corpuscular Hemoglobin 22.7 pg (26-34); Mean Corpuscular Volume 76.2 fl (80-100); Mean Platelet Volume 11.1 fl (7.4-10.4); Monocytes Absolute Auto 0.7 K/mm3 (0.1-0.6); Neutrophils Absolute Auto 8.2 K/mm3 (1.3-6.7); Neutrophils Percent Auto 79.8 % (45.5-73.1); Platelet Count Result 219 k/mm3 (150-375); Red Blood Count 5.12 M/mm3 (4.2-5.4); Red Cell Distribution Width 19.5 % (11.5-14.5); White Blood Count 10.3 K/mm3 (4.5-10.0)
[2024-05-22] MEDS: HYDROmorphone HCL INJ (*CRX) 1 MG/ML SYR 0.5 MG IV PUSH (09:06)
[2024-05-22] MEDS: SODIUM CHLORIDE 0.9% IV 1,000 ML 999 ML IV CONT ×2 (09:06→09:43)
[2024-05-22 09:14] LABS: Alanine Aminotransferase 18 U/L (6-35); Albumin Level 4.1 g/dL (3.5-5.1); Alkaline Phosphatase 124 U/L (38-126); Anion Gap 12 mmol/L (4-12); Aspartate Amino Transferase 20 U/L (14-36); Blood Urea Nitrogen 23 mg/dL (7-17); Calcium 8.5 mg/dL (8.4-10.2); Carbon Dioxide 21 mmol/L (22-30); Chloride 106 mmol/L (98-107); Estimated CRCL calculation 92 ml/min; Estimated Glomerular Filt Rate > 60; Glucose 321 mg/dL (65-110); Potassium 3.9 mmol/L (3.4-5.0); Sodium 139 mmol/L (137-145)
[2024-05-22 09:17] LABS: INR 1.1; Prothrombin Time 14.4 Seconds (11.1-14.7)
[2024-05-22 09:26] LABS: Platelet Estimate Adequate (Adequate); Schistocytes None Seen
[2024-05-22] MEDS: HYDROmorphone HCL INJ (*CRX) 1 MG/ML SYR IV PUSH (09:42)
[2024-05-22] MEDS: METOCLOPRAMIDE HCL INJ 10 MG/2 ML VIAL IV PUSH (09:42)
== END 2024-05-22 13:01 | disposition home or self-care (01) ==
PROVIDERS: Emergency Provider Emergency Medicine; PCP Emergency Medicine
DX: G89.3 Neoplasm related pain (acute) (chronic) (principal); Z20.822 Contact with and (suspected) exposure to COVID-19; C78.7 Secondary malignant neoplasm of liver and intrahepatic bile duct; C34.90 Malignant neoplasm of unspecified part of unspecified bronchus or lung; I25.10 Atherosclerotic heart disease of native coronary artery without angina pectoris; J44.9 Chronic obstructive pulmonary disease, unspecified; E11.610 Type 2 diabetes mellitus with diabetic neuropathic arthropathy; E11.42 Type 2 diabetes mellitus with diabetic polyneuropathy; E11.51 Type 2 diabetes mellitus with diabetic peripheral angiopathy without gangrene; I73.9 Peripheral vascular disease, unspecified; E78.00 Pure hypercholesterolemia, unspecified; Z99.3 Dependence on wheelchair; Z95.5 Presence of coronary angioplasty implant and graft; Z95.1 Presence of aortocoronary bypass graft; Z95.810 Presence of automatic (implantable) cardiac defibrillator; Z87.891 Personal history of nicotine dependence; Z87.440 Personal history of urinary (tract) infections; Z90.711 Acquired absence of uterus with remaining cervical stump; Z89.511 Acquired absence of right leg below knee; Z90.49 Acquired absence of other specified parts of digestive tract; Z79.01 Long term (current) use of anticoagulants; Z79.899 Other long term (current) drug therapy; Z79.02 Long term (current) use of antithrombotics/antiplatelets; Z79.4 Long term (current) use of insulin
CPT/HCPCS: 36415; 80053; 81001; 85025; 85610; 85730; 87637; 96361; 96374; 96375; 96376; 99284; J1171; J2765; J7030

== ENCOUNTER 2024-05-23 02:37 | Emergency (ER) | payer MEDICARE, MEDICAID, SELFPAY ==
--- NOTE | ~2024-05-23 | XR_ITS ---
Portable chest x-ray Comparison: 05/08/2024 Clinical History: Shortness of breath, history of lung cancer Findings: Fyjsf-mb-swawrfgz left pleural effusion present. Mild central congestive changes are prese nt with minimal interstitial edema. Cardiomediastinal silhouette is stable, status post prior cardia c surgery with pacemaker device. Bones and soft tissues are unremarkable. Impression: Qgkex-hi-heljnklv left pleural effusion. Central congestive change and mild interstitial edema. Status post cardiac surgery with pacemaker device. Reviewed, dictated and finalized at location M. Impression: Lhknc-[id number]-fwesoebu left pleural effusion. Central congestive change and mild interstitial edema. Status post cardiac surgery with pacemaker device.
[2024-05-23 02:39] VITALS: BP 139/76; PULSE 96; RESP 16; TEMP 36.8; O2SAT 100
--- NOTE | 2024-05-23 02:39 | ECG_ITS ---
Test Date: 2024-05-23 02:42:33 Measurements Intervals [place] Rate: 96 P: 28 NV: 198 QRS: -24 QRSD: 108 T: 107 QT: 391 QTc: 496 Interpretive Statements SINUS RHYTHM BORDERLINE LEFT AXIS DEVIATION [QRS AXIS < -20] NONSPECIFIC T-WAVE ABNORMALITY ABNORMAL ELECTROCARDIOGRAM Compared to ECG 05/08/2024 15:33:13 SINUS RHYTHM REPLACES ATRIAL FLUTTER Electronically Signed On 05-23-2024 07:33:29 CDT by Zay Garcia M.D.
[2024-05-23 02:49] VITALS: O2SAT 97
[2024-05-23] MEDS: IPRATROPIUM 0.5 MG/ALBUTEROL SULFATE 2.5 MG AMPUL.NEB 3 ML INHALATION (03:06)
[2024-05-23 03:07] VITALS: PULSE 94; RESP 12
[2024-05-23 03:18] VITALS: PULSE 93; RESP 17
--- NOTE | 2024-05-23 03:37 | ED.GENADULT ---
HPI - General Adult General Chief complaint: Shortness of Breath/Dyspnea Stated complaint: dyspnea Time Seen by Provider: 05/23/24 02:41 History of Present Illness HPI narrative: patient is 58-year-old female well known to our facility after having lung and bone cancer pain the patient states tonight she started to feel short of breath was given a breathing treatment by EMS and was transported to the emergency department. The patient reports that she is going back and forth as to whether she wants palliative care or whether she wants to try to pursue potential non chemotherapeutic treatment at [facility]. The patient reports he does not want blood drawn does not want any significant interventions does not want any IV pain medications tonight Related Data Home Medications Medication Instructions Recorded Confirmed cyclobenzaprine 10 mg tablet 10 mg PO TID PRN muscle spasms 05/19/23 05/07/24 duloxetine 60 mg capsule,delayed 60 mg PO DAILY 05/28/23 05/07/24 release Allergies Allergy/AdvReac Type Severity Reaction Status Date / Time methantheline Allergy Severe Unknown Verified 05/22/24 06:11 methylene blue Allergy Severe Unknown Verified 05/22/24 06:11 Nnibobv-HNV-ZvF Reductase AdvReac Intermediate MYALGIAS Verified 05/22/24 06:11 Inhibitor diphenhydramine AdvReac Itching Verified 05/22/24 06:11 [From Benadryl Allergy] ondansetron [From Zofran] AdvReac Nausea and Verified 05/22/24 06:11 Vomiting propofol AdvReac Agitated Verified 05/22/24 06:11 Review of Systems Review of Systems: A 10 system review of systems was completed on the patient and is negative except for what is stated in the HPI. Nursing and ancillary documentation was reviewed. [facility] Past Medical History Medical History Anxiety Charcot's joint of foot in type 2 diabetes mellitus Of the right foot Chronic obstructive pulmonary disease wears 2 L NC at night only Coronary artery disease Left anterior descending stent 01/2019. Usual conveyor line battery charger is Dr. 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 Peripheral vascular disease due to secondary diabetes Presence of combination internal cardiac defibrillator (ICD) and pacemaker Serotonin syndrome Suspected sleep apnea AHI 35 on apnea link on 06/16/2022. UTI (urinary tract infection) Surgical History Surgical History History of appendectomy History of section x3 History of hysterectomy Partial, ovaries retained. Due to cervical changes. History of tonsillectomy and adenoidectomy History of vertebroplasty Hx of BKA Right 11/19/20 at [facility] S/P CABG x 5 w/MVR and left atrial appendage ligation Status post cholecystectomy Stented coronary artery X1 Family History Family History Sibling Diabetes mellitus Mother Heart failure Cardiomegaly Arthritis Atrial fibrillation Family history of osteoporosis Family history of Alzheimer's disease Hypertension Cardiomyopathy Acute myocardial infarction History of heart artery stent Congestive heart failure Daughter Anxiety Father Esophagus cancer Cancer of spinal column Social History Social History Social History: The patient is . The patient had 4 children and 1 of her daughters is now. She is disabled. She is a former smoker. She denies any alcohol marijuana or illi
[2024-05-23] MEDS: LORazepam (*CRX) 0.5 MG TABLET PO (03:39)
[2024-05-23 05:28] VITALS: BP 148/86; PULSE 91; RESP 16; O2SAT 96
--- NOTE | 2024-05-23 05:54 | PC.NURSE ---
Pt refusing to keep blood pressure cuff and pulse oximeter on. Pt states the BP cuff is way too tight.
[2024-05-23] MEDS: LORazepam (*CRX) 1 MG TABLET PO (06:09)
--- NOTE | 2024-05-23 07:15 | PC.NURSE ---
MARKETING INTELLIGENCE ANALYST AT BEDSIDE ATTEMPTING TO OBTAIN NEW SET OF VITALS - PT REFUSES.
--- NOTE | 2024-05-23 11:44 | PC.NURSE ---
lunch tray ordered
--- NOTE | 2024-05-23 12:00 | PC.NURSE ---
LABOR/EXCAVATOR AT BEDSIDE ATTEMPTING TO OBTAIN VITALS - PT REFUSES.
--- NOTE | 2024-05-23 13:05 | PC.NURSE ---
To home via [facility]. Condition stable. Pt uncooperative with vital signs.
== END 2024-05-23 13:07 | disposition home or self-care (01) ==
PROVIDERS: Emergency Provider Emergency Medicine; PCP Emergency Medicine
DX: G89.29 Other chronic pain (principal); C22.9 Malignant neoplasm of liver, not specified as primary or secondary; Z95.0 Presence of cardiac pacemaker; F41.9 Anxiety disorder, unspecified; E11.9 Type 2 diabetes mellitus without complications; J44.9 Chronic obstructive pulmonary disease, unspecified; I25.10 Atherosclerotic heart disease of native coronary artery without angina pectoris; Z79.4 Long term (current) use of insulin; E78.5 Hyperlipidemia, unspecified; Z87.440 Personal history of urinary (tract) infections
CPT/HCPCS: 71045; 93005; 94640; 99283; A9270

== ENCOUNTER 2024-05-24 11:46 | Emergency (ER) | payer MEDICARE, MEDICAID, SELFPAY ==
[2024-05-24 12:06] VITALS: BP 146/82; PULSE 88; RESP 20; TEMP 36.4; O2SAT 100
--- NOTE | 2024-05-24 13:50 | ED.NAVMDI ---
HPI - Nausea/Vomiting/Diarrhea General Chief complaint: Nausea/Vomiting/Diarrhea Stated complaint: possible CDef Time Seen by Provider: 05/24/24 11:55 Source: patient Mode of arrival: EMS Limitations: no limitations History of Present Illness HPI Narrative: This is a 58-year-old female, with history of lung and bone cancer, well known to this emergency department, returns by EMS from home with complaints of diarrhea. She states she has had loose stools for the past 4 days. This is associated with perirectal pain, though she denies bleeding. She denies fevers associated with this. She denies recent antibiotic use. She complains of chronic diffuse pain. Related Data Home Medications Medication Instructions Recorded Confirmed cyclobenzaprine 10 mg tablet 10 mg PO TID PRN muscle spasms 05/19/23 05/07/24 duloxetine 60 mg capsule,delayed 60 mg PO DAILY 05/28/23 05/07/24 release Allergies Allergy/AdvReac Type Severity Reaction Status Date / Time methantheline Allergy Severe Unknown Verified 05/22/24 06:11 methylene blue Allergy Severe Unknown Verified 05/22/24 06:11 [id number]-NNM-KfO Reductase AdvReac Intermediate MYALGIAS Verified 05/22/24 06:11 Inhibitor diphenhydramine AdvReac Itching Verified 05/22/24 06:11 [From Benadryl Allergy] ondansetron [From Zofran] AdvReac Nausea and Verified 05/22/24 06:11 Vomiting propofol AdvReac Agitated Verified 05/22/24 06:11 Review of Systems Review of Systems: All systems reviewed & are unremarkable except as noted in HPI and below PMFSH Past Medical History Medical History Anxiety Charcot's joint of foot in type 2 diabetes mellitus Of the right foot Chronic obstructive pulmonary disease wears 2 L NC at night only Coronary artery disease Left anterior descending stent 01/2019. Usual clinical rehabilitation aide is Dr. 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 Peripheral vascular disease due to secondary diabetes Presence of combination internal cardiac defibrillator (ICD) and pacemaker Serotonin syndrome Suspected sleep apnea AHI 35 on apnea link on 06/16/2022. UTI (urinary tract infection) Surgical History Surgical History History of appendectomy History of section x3 History of hysterectomy Partial, ovaries retained. Due to cervical changes. History of tonsillectomy and adenoidectomy History of vertebroplasty Hx of BKA Right 11/19/20 at [facility] S/P CABG x 5 w/MVR and left atrial appendage ligation Status post cholecystectomy Stented coronary artery X1 Family History Family History Sibling Diabetes mellitus Mother Heart failure Cardiomegaly Arthritis Atrial fibrillation Family history of osteoporosis Family history of Alzheimer's disease Hypertension Cardiomyopathy Acute myocardial infarction History of heart artery stent Congestive heart failure Daughter Anxiety Father Esophagus cancer Cancer of spinal column Social History Social History Social History: The patient is . The patient had 4 children and 1 of her daughters is now. She is disabled. She is a former smoker. She denies any alcohol marijuana or illicit drugs. Primarily wheelchair-bound. Surrogate medical decision maker: Jass Arciniega, son. Code status: Full code. Smoking packs per day: 1 Smoking cigarettes per day: 20.0 Years smoked: 20 Smok
--- NOTE | 2024-05-24 14:00 | PC.NURSE ---
pt has been refusing care. pt says im not getting stuck with anymore needles pt says she was stuck several times last week and doesnt want anymore
[2024-05-24 14:35] VITALS: BP 141/72; PULSE 93; RESP 18; TEMP 36.4; O2SAT 100
--- NOTE | 2024-05-24 17:35 | PC.NURSE ---
standard dinner tray ordered
[2024-05-24 18:37] VITALS: BP 163/80; PULSE 97; RESP 18; TEMP 36.6; O2SAT 93
== END 2024-05-24 18:40 | disposition home or self-care (01) ==
PROVIDERS: Emergency Provider Preventive Medicine Aerospace Medicine; PCP Emergency Medicine
DX: R19.7 Diarrhea, unspecified (principal); C78.7 Secondary malignant neoplasm of liver and intrahepatic bile duct; C34.90 Malignant neoplasm of unspecified part of unspecified bronchus or lung; I25.10 Atherosclerotic heart disease of native coronary artery without angina pectoris; J44.9 Chronic obstructive pulmonary disease, unspecified; E11.610 Type 2 diabetes mellitus with diabetic neuropathic arthropathy; E11.42 Type 2 diabetes mellitus with diabetic polyneuropathy; E11.51 Type 2 diabetes mellitus with diabetic peripheral angiopathy without gangrene; I73.9 Peripheral vascular disease, unspecified; E78.00 Pure hypercholesterolemia, unspecified; Z99.3 Dependence on wheelchair; Z95.5 Presence of coronary angioplasty implant and graft; Z95.1 Presence of aortocoronary bypass graft; Z95.810 Presence of automatic (implantable) cardiac defibrillator; Z87.891 Personal history of nicotine dependence; Z87.440 Personal history of urinary (tract) infections; Z90.711 Acquired absence of uterus with remaining cervical stump; Z89.511 Acquired absence of right leg below knee; Z90.49 Acquired absence of other specified parts of digestive tract; Z79.899 Other long term (current) drug therapy; Z79.02 Long term (current) use of antithrombotics/antiplatelets; Z79.4 Long term (current) use of insulin
CPT/HCPCS: 99281

== ENCOUNTER 2024-05-25 02:05 | Observation (INO) | payer MEDICARE, MEDICAID, SELFPAY ==
[2024-05-25] VITALS (14 sets, daily range): BP systolic 94–126; BP diastolic 43–78; PULSE 54–94; RESP 12–20; TEMP 36.3–36.8; O2SAT 93–99
--- NOTE | 2024-05-25 04:02 | ED.GENADULT ---
HPI - General Adult General Chief complaint: Nausea/Vomiting/Diarrhea History of Present Illness HPI narrative: 58-year-old female who was well known to the emergency department returns to emergency department for evaluation for diarrhea. Patient was just evaluated in the emergency department earlier today for the same reason. At that time patient declined any workup. Patient states after getting home she was having worsening symptoms so she presented to the emergency department. Patient does have known diagnosis cancer but has declined to start treatment. Patient was also going to be set up with palliative care by our care coordination and patient did answer the phone when they called. Related Data Home Medications Medication Instructions Recorded Confirmed cyclobenzaprine 10 mg tablet 10 mg PO TID PRN muscle spasms 05/19/23 05/07/24 duloxetine 60 mg capsule,delayed 60 mg PO DAILY 05/28/23 05/07/24 release Allergies Allergy/AdvReac Type Severity Reaction Status Date / Time methantheline Allergy Severe Unknown Verified 05/22/24 06:11 methylene blue Allergy Severe Unknown Verified 05/22/24 06:11 Eqdhaaq-GIH-DqY Reductase AdvReac Intermediate MYALGIAS Verified 05/22/24 06:11 Inhibitor diphenhydramine AdvReac Itching Verified 05/22/24 06:11 [From Benadryl Allergy] ondansetron [From Zofran] AdvReac Nausea and Verified 05/22/24 06:11 Vomiting propofol AdvReac Agitated Verified 05/22/24 06:11 Review of Systems Review of Systems: All systems reviewed & are unremarkable except as noted in HPI and below PMFSH Past Medical History Medical History Anxiety Charcot's joint of foot in type 2 diabetes mellitus Of the right foot Chronic obstructive pulmonary disease wears 2 L NC at night only Coronary artery disease Left anterior descending stent 01/2019. Usual copy holder is Dr. 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 Peripheral vascular disease due to secondary diabetes Presence of combination internal cardiac defibrillator (ICD) and pacemaker Serotonin syndrome Suspected sleep apnea AHI 35 on apnea link on 06/16/2022. UTI (urinary tract infection) Surgical History Surgical History History of appendectomy History of section x3 History of hysterectomy Partial, ovaries retained. Due to cervical changes. History of tonsillectomy and adenoidectomy History of vertebroplasty Hx of BKA Right 11/19/20 at [facility] S/P CABG x 5 w/MVR and left atrial appendage ligation Status post cholecystectomy Stented coronary artery X1 Family History Family History Sibling Diabetes mellitus Mother Heart failure Cardiomegaly Arthritis Atrial fibrillation Family history of osteoporosis Family history of Alzheimer's disease Hypertension Cardiomyopathy Acute myocardial infarction History of heart artery stent Congestive heart failure Daughter Anxiety Father Esophagus cancer Cancer of spinal column Social History Social History Social History: The patient is . The patient had 4 children and 1 of her daughters is now. She is disabled. She is a former smoker. She denies any alcohol marijuana or illicit drugs. Primarily wheelchair-bound. Surrogate medical decision maker: Jass Arciniega, son. Code status: Full code. Smoking packs per day: 1 Smoking cigarettes per da
[2024-05-25] MEDS: SODIUM CHLORIDE 0.9% IV 1,000 ML 999 ML IV CONT (05:37)
[2024-05-25 05:40] LABS: Basophils Absolute Auto 0.1 K/mm3 (0.0-0.1); Basophils Percent Auto 0.5 % (0.2-1.2); Eosinophils Absolute Auto 0.1 K/mm3 (0-0.3); Eosinophils Percent Auto 0.4 % (0-4.4); Hematocrit 42.1 % (37.0-47.0); Hemoglobin 12.7 g/dL (12.0-15.0); Immature Granulocyte Absolute 0.07 K/mm3 (0.00-0.031); Immature Granulocyte Percent A 0.6 % (0-0.5); Immature Platelet Fraction Pct 5.9 % (0.9-11.2); Lymphocytes Percent Auto 11.1 % (18.3-44.2); Mean Corpuscular HGB Conc 30.2 g/dl (32-36); Mean Corpuscular Hemoglobin 22.5 pg (26-34); Mean Corpuscular Volume 74.6 fl (80-100); Mean Platelet Volume 11.2 fl (7.4-10.4); Monocytes Absolute Auto 0.6 K/mm3 (0.1-0.6); Neutrophils Absolute Auto 9.6 K/mm3 (1.3-6.7); Neutrophils Percent Auto 82.4 % (45.5-73.1); Platelet Count Result 258 k/mm3 (150-375); Red Blood Count 5.64 M/mm3 (4.2-5.4); Red Cell Distribution Width 20.4 % (11.5-14.5); White Blood Count 11.7 K/mm3 (4.5-10.0)
[2024-05-25 05:47] LABS: Alanine Aminotransferase 70 U/L (6-35); Albumin Level 4.6 g/dL (3.5-5.1); Alkaline Phosphatase 175 U/L (38-126); Anion Gap 15 mmol/L (4-12); Aspartate Amino Transferase 75 U/L (14-36); Bilirubin,Total 1.9 mg/dL (0.2-1.3); Blood Urea Nitrogen 34 mg/dL (7-17); Calcium 9.2 mg/dL (8.4-10.2); Carbon Dioxide 15 mmol/L (22-30); Chloride 106 mmol/L (98-107); Estimated CRCL calculation 45 ml/min; Estimated Glomerular Filt Rate 38; Glucose 395 mg/dL (65-110); Potassium 4.2 mmol/L (3.4-5.0); Sodium 136 mmol/L (137-145)
[2024-05-25] MEDS: HYDROmorphone HCL INJ (*CRX) 1 MG/ML SYR 2 MG IV PUSH (05:55)
[2024-05-25 06:00] LABS: Anisocytosis 1+; Microcytosis 1+ (NORMAL); Platelet Estimate Adequate (Adequate)
[2024-05-25 06:01] LABS: Schistocytes None Seen
[2024-05-25] MEDS: SODIUM CHLORIDE 0.9% IV 1,000 ML 125 ML IV CONT ×2 (06:27→16:24)
[2024-05-25 06:52] LABS: Glucose Point of Care 331 mg/dl (65-105)
[2024-05-25] MEDS: INSULIN HUMAN REGULAR (*BKC) 100 UNITS/ML IV PUSH (06:58)
--- NOTE | 2024-05-25 07:30 | ADMGEN ---
This patient, Tiff Vaughn, was admitted to 2 Medical Room 259-. Patient/family oriented to hospital policies and general routines including ID bracelet, bed and alarms, visiting hours, pain management, procedures, bathroom and other care routines, personal items, smoking policy, room service/diet, and visiting hours. Information on how to activate the Rapid Response Team has been discussed. Patient/Family are encouraged to report perceived risks to care and to ask questions if they do not understand what they are told or what they should do.
[2024-05-25 08:41] LABS: Anion Gap 10 mmol/L (4-12); Blood Urea Nitrogen 34 mg/dL (7-17); Calcium 7.9 mg/dL (8.4-10.2); Carbon Dioxide 15 mmol/L (22-30); Chloride 111 mmol/L (98-107); Estimated CRCL calculation 45 ml/min; Estimated Glomerular Filt Rate 38; Glucose 252 mg/dL (65-110); Sodium 136 mmol/L (137-145)
[2024-05-25 12:08] LABS: Glucose Point of Care 290 mg/dl (65-105)
[2024-05-25] MEDS: carvediloL 3.125 MG TABLET PO ×2 (12:57→21:02)
[2024-05-25] MEDS: APIXABAN 5 MG TABLET PO ×2 (12:57→21:02)
[2024-05-25] MEDS: AMIODARONE HCL 200 MG TABLET PO (12:57)
[2024-05-25] MEDS: CLOPIDOGREL BISULFATE 75 MG TABLET PO (12:57)
[2024-05-25] MEDS: UMECLIDINIUM/VILANTEROL 62.5-25 MCG ELLIPTA 1 PUFF INHALATION (14:30)
--- NOTE | 2024-05-25 15:23 | PM.IMHP ---
H&P: HPI History of Present Illness Date/Time: 05/25/24 1015 Chief Complaint: Diarrhea Abdominal pain Narrative: 58-year-old female who was well known to the emergency department returns to emergency department for evaluation for diarrhea. Patient was just evaluated in the emergency department earlier today for the same reason. At that time patient declined any workup. Patient states after getting home she was having worsening symptoms so she presented to the emergency department. Patient does have known diagnosis cancer but has declined to start treatment. Patient was also going to be set up with palliative care by our care coordination and patient did not answer the phone when they called. Pt had received Dilaudid in the ED prior to coming to the floor and was sleeping on rounding. She would rouse easily to verbal stimuli and answer questions and fall back asleep. Denies any c/o pain at present. Naz from case management discussed that patient has been approached on multiple occasions regarding placement in shelter or assisted living as she presents to the ED multiple times in the same day on several occasions. Unsure if patient is taking her home medications. Will approach patient for palliative care or shelter on discharge. Review of Systems Review of Systems: All systems reviewed & are unremarkable except as noted in HPI and below PMFSH Past Medical History Medical History Anxiety Charcot's joint of foot in type 2 diabetes mellitus Of the right foot Chronic obstructive pulmonary disease wears 2 L NC at night only Coronary artery disease Left anterior descending stent 01/2019. 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 Peripheral vascular disease due to secondary diabetes Presence of combination internal cardiac defibrillator (ICD) and pacemaker Serotonin syndrome Suspected sleep apnea AHI 35 on apnea link on 06/16/2022. UTI (urinary tract infection) Surgical History Surgical History History of appendectomy History of section x3 History of hysterectomy Partial, ovaries retained. Due to cervical changes. History of tonsillectomy and adenoidectomy History of vertebroplasty Hx of BKA Right 11/19/20 at [facility] S/P CABG x 5 w/MVR and left atrial appendage ligation Status post cholecystectomy Stented coronary artery X1 Family History Family History Sibling Diabetes mellitus Mother Heart failure Cardiomegaly Arthritis Atrial fibrillation Family history of osteoporosis Family history of Alzheimer's disease Hypertension Cardiomyopathy Acute myocardial infarction History of heart artery stent Congestive heart failure Daughter Anxiety Father Esophagus cancer Cancer of spinal column Social History Social History Social History: The patient is . The patient had 4 children and 1 of her daughters is now. She is disabled. She is a former smoker. She denies any alcohol marijuana or illicit drugs. Primarily wheelchair-bound. Surrogate medical decision maker: Jass Arciniega, son. Code status: Full code. Smoking packs per day: 1 Smoking cigarettes per day: 20.0 Years smoked: 20 Smoking pack-years: 20.00 Smoking status: Former smoker Additional smoking assessment comments: quit 2019 Alcohol intake: former
[2024-05-25 16:58] LABS: Glucose Point of Care 234 mg/dl (65-105)
[2024-05-25] MEDS: INSULIN ASPART (*BKC) 100 UNITS/ML SUB-Q ×2 (17:02→21:08)
[2024-05-25 21:14] LABS: Glucose Point of Care 267 mg/dl (65-105)
[2024-05-26] MEDS: ALPRAZolam (*CRX) 0.5 MG TABLET PO (02:19)
[2024-05-26 06:00] VITALS: BP 103/54; PULSE 70; RESP 18; TEMP 36.9; O2SAT 100
[2024-05-26] MEDS: SODIUM CHLORIDE 0.9% IV 1,000 ML 125 ML IV CONT (06:08)
[2024-05-26 06:10] VITALS: BP 103/54; PULSE 70; RESP 18; TEMP 36.2; O2SAT 100
[2024-05-26 07:50] LABS: Glucose Point of Care 233 mg/dl (65-105)
[2024-05-26] MEDS: UMECLIDINIUM/VILANTEROL 62.5-25 MCG ELLIPTA 1 PUFF INHALATION (08:05)
[2024-05-26 08:06] VITALS: O2SAT 97
[2024-05-26 08:06] LABS: Basophils Percent Auto 0.5 % (0.2-1.2); Eosinophils Absolute Auto 0.2 K/mm3 (0-0.3); Hematocrit 33.3 % (37.0-47.0); Hemoglobin 9.7 g/dL (12.0-15.0); Immature Granulocyte Absolute 0.03 K/mm3 (0.00-0.031); Immature Granulocyte Percent A 0.4 % (0-0.5); Lymphocytes Absolute Auto 0.98 K/mm3 (0.9-3.2); Lymphocytes Percent Auto 12.5 % (18.3-44.2); Mean Corpuscular HGB Conc 29.1 g/dl (32-36); Mean Corpuscular Hemoglobin 22.5 pg (26-34); Mean Corpuscular Volume 77.1 fl (80-100); Mean Platelet Volume 10.8 fl (7.4-10.4); Monocytes Absolute Auto 0.6 K/mm3 (0.1-0.6); Monocytes Percent Auto 7.1 % (2.6-8.5); Neutrophils Absolute Auto 6.1 K/mm3 (1.3-6.7); Neutrophils Percent Auto 77.5 % (45.5-73.1); Platelet Count Result 176 k/mm3 (150-375); Red Blood Count 4.32 M/mm3 (4.2-5.4); Red Cell Distribution Width 19.3 % (11.5-14.5); White Blood Count 7.8 K/mm3 (4.5-10.0)
[2024-05-26 08:24] LABS: Anion Gap 9 mmol/L (4-12); Blood Urea Nitrogen 34 mg/dL (7-17); Calcium 7.7 mg/dL (8.4-10.2); Carbon Dioxide 16 mmol/L (22-30); Chloride 113 mmol/L (98-107); Estimated CRCL calculation 48 ml/min; Estimated Glomerular Filt Rate 42; Glucose 238 mg/dL (65-110); Potassium 3.7 mmol/L (3.4-5.0); Sodium 138 mmol/L (137-145)
[2024-05-26 08:45] VITALS: PULSE 74; RESP 18; O2SAT 97
[2024-05-26 08:50] VITALS: PULSE 74
[2024-05-26] MEDS: carvediloL 3.125 MG TABLET PO (08:50)
[2024-05-26] MEDS: AMIODARONE HCL 200 MG TABLET PO (08:50)
[2024-05-26] MEDS: CLOPIDOGREL BISULFATE 75 MG TABLET PO (08:51)
[2024-05-26] MEDS: APIXABAN 5 MG TABLET PO (08:51)
[2024-05-26] MEDS: INSULIN ASPART (*BKC) 100 UNITS/ML SUB-Q ×2 (08:52→12:38)
[2024-05-26 09:38] LABS: Anisocytosis 1+; Hypochromasia 1+; Platelet Estimate Adequate (Adequate); Schistocytes None Seen
[2024-05-26 12:37] LABS: Glucose Point of Care 216 mg/dl (65-105)
[2024-05-26] MEDS: DULoxetine HCL 60 MG CAPSULE.DR PO (12:38)
[2024-05-26] MEDS: FUROSEMIDE 40 MG TABLET PO (12:38)
--- NOTE | 2024-05-26 13:32 | PM.DS ---
DS: Admitting Diagnosis Discharge Date 05/26/2024 Admitting Diagnosis Diarrhea EVAN Failure to thrive DS: Discharge Diagnosis Discharge Diagnosis (1) Diarrhea: Qualifiers: Diarrhea type: presumed infectious Qualified Code(s): R19.7 - Diarrhea, unspecified Code(s): R19.7 - Diarrhea, unspecified Status: Acute Assessment and Plan: C. diff negative Diarrhea resolved (2) EVAN (acute kidney injury): Code(s): N17.9 - Acute kidney failure, unspecified Status: Acute Assessment and Plan: Kidney function returned to baseline with gentle hydration. BUN 34 today with creat. 1.3. DS: Summary Hospital Course Reason for hospitalization: Diarrhea EVAN Hospital Course: Chief Complaint: Diarrhea Abdominal pain Narrative: 58-year-old female who was well known to the emergency department returns to emergency department for evaluation for diarrhea. Patient was just evaluated in the emergency department earlier today for the same reason. At that time patient declined any workup. Patient states after getting home she was having worsening symptoms so she presented to the emergency department. Patient does have known diagnosis cancer but has declined to start treatment. Patient was also going to be set up with palliative care by our care coordination and patient did not answer the phone when they called. Pt had received Dilaudid in the ED prior to coming to the floor and was sleeping on rounding. She would rouse easily to verbal stimuli and answer questions and fall back asleep. Denies any c/o pain at present. Naz from case management discussed that patient has been approached on multiple occasions regarding placement in half-way or assisted living as she presents to the ED multiple times in the same day on several occasions. Unsure if patient is taking her home medications. Will approach patient for palliative care or half-way on discharge. Extensive discussion with patient and daughter, JANET Romero, regarding patient's health conditions. Pt and daughter report she has stage 4 liver cancer with metastasis to the right lung. Daughter states this was diagnosed about 6 months ago and patient cannot stay out of the hospital long enough to make her f/u appointments, such as CT brain, POC placement, etc.Pt reports pain management and staying out of the half-way are most important to her. States she is afraid to because she watched both of her parents . Discussed counseling through palliative care/hospice and they could help her to be as comfortable as possible. Patient states she will think about it and would like some information about them to discuss with her daughter (who is a pearl diver). Pt states she cannot afford assisted living and has been in 7 different nursing homes and they are all bad. At this time will discharge pt home on current medications to follow up with oncology on 06/01/2024 as scheduled and with her PCP. Status at Discharge Cognitive/behavioral status at discharge: Baseline cognitive status Functional status at discharge: wheelchair bound Overall status at discharge: patient is back to baseline Time Spent with Patient Time attestation: Total time spent providing and/or coordinating discharge services: Exam Narrative: Pt is alert and oriented x 4 and appears no in acute distress. Const: General: comfortable and no acute distress HENMT: Face/Nose/Sinus: Normal nares present Mouth: Yes moist mucous membranes Eyes: General: appearance normal, both eyes and all related structures Sclera: sclerae normal Pupils: Equal, round and reactive pupils present EOM: EOMs intact bilaterally Neck: Neck: supple and no JVD Resp: Effort & Inspection: normal respiratory effort Auscultation: clear to auscultation bilaterally Cardio: Rate: regular rate Rhythm: regular rhythm GI: Other: Protuberant abdomen is soft, tender to RUQ with palpation w
== END 2024-05-26 17:26 | disposition home or self-care (01) ==
LOC: ANHED 06:14 → ANH2MED 12:12
PROVIDERS: Nurse Practitioner Family; Admitting Provider Internal Medicine; Emergency Provider Emergency Medicine; PCP Emergency Medicine; Visit Provider General Practice
DX: R19.7 Diarrhea, unspecified (principal); N17.9 Acute kidney failure, unspecified; R10.84 Generalized abdominal pain; C22.8 Malignant neoplasm of liver, primary, unspecified as to type; C78.01 Secondary malignant neoplasm of right lung; F41.9 Anxiety disorder, unspecified; F32.9 Major depressive disorder, single episode, unspecified; I25.10 Atherosclerotic heart disease of native coronary artery without angina pectoris; I50.9 Heart failure, unspecified; G89.29 Other chronic pain; R62.7 Adult failure to thrive; Z68.29 Body mass index [BMI] 29.0-29.9, adult; J44.9 Chronic obstructive pulmonary disease, unspecified; E11.65 Type 2 diabetes mellitus with hyperglycemia; E11.42 Type 2 diabetes mellitus with diabetic polyneuropathy; E11.51 Type 2 diabetes mellitus with diabetic peripheral angiopathy without gangrene; E11.610 Type 2 diabetes mellitus with diabetic neuropathic arthropathy; F12.90 Cannabis use, unspecified, uncomplicated; Z87.891 Personal history of nicotine dependence; Z79.01 Long term (current) use of anticoagulants; Z79.4 Long term (current) use of insulin; Z79.899 Other long term (current) drug therapy; Z89.511 Acquired absence of right leg below knee; Z95.1 Presence of aortocoronary bypass graft; Z95.4 Presence of other heart-valve replacement; Z95.5 Presence of coronary angioplasty implant and graft; Z95.810 Presence of automatic (implantable) cardiac defibrillator
CPT/HCPCS: 36415; 80048; 80053; 82948; 85025; 85055; 94640; 96361; 96374; 96375; 99285; A9270; G0378; J1171; J1815; J7030